=== PATIENT | female | born 2000 | race Caucasian/White ===

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

== ENCOUNTER → 2019-12-24 11:07 | Outpatient (CLI) | payer OTHER, MEDICAID, SELFPAY ==
[2019-12-24 14:24] LABS: hCG Titer Quant., Serum 23015 mIU/mL (1-3)
[2019-12-26 03:07] LABS: Chlamydia By Nucleic Acid AMP Negative (Negative)
[2019-12-26 07:49] LABS: Gonococcus By Nucleic Acid AMP Negative (Negative)
== END ==
PROVIDERS: PCP Pediatrics; Visit Provider Obstetrics & Gynecology
DX: Z34.81 Encounter for supervision of other normal pregnancy, first trimester (principal); Z11.3 Encounter for screening for infections with a predominantly sexual mode of transmission
CPT/HCPCS: 36415; 84702; 87491; 87591

== ENCOUNTER 2019-12-28 19:07 | Emergency (ER) | payer OTHER, MEDICAID, SELFPAY ==
[2019-12-28 19:08] VITALS: BP 133/84; PULSE 103; RESP 15; TEMP 37.2; O2SAT 99; BMI 41.8
--- NOTE | 2019-12-28 20:21 | US_ITS ---
STUDY: FIRST TRIMESTER OBSTETRICAL ULTRASOUND REASON FOR EXAM: Female, 19 years old VAGINAL BLEEDING WITH X 1 DAY LMP: 11/07/2019 TECHNIQUE: Transvaginal TECHNICAL QUALITY: Adequate. PRIOR ULTRASOUND: None. FINDINGS: There is visualization of a single gestational sac in a normal intrauterine position. The gestational sac shape is within normal limits. 22 x 15 x 5 mm subchorionic hemorrhage. There is a visualized yolk sac. The yolk sac measures 4.5 mm. The placenta is non-visualized. There is visualization of a live embryo. The crown-rump length (CRL) measures 1.03 cm, indicating an estimated gestational age (EGA) of 7 weeks, 1 days. There is demonstrated cardiac activity with a heart rate of 142 bpm. The estimated gestation age (EGA) by LMP is 7 weeks, 2 days. The estimated date of delivery (RICHARD) by LMP is 08/13/2020. The estimated gestation age (EGA) by US is 7 weeks, 1 days. The estimated date of delivery (RICHARD) by US is 08/14/2020. The uterus measures 9.3 x 7.1 x 4.9 cm. There is no demonstrated uterine fibroid. The cervix is closed. The right ovary measures 4.2 x 3.5 x 2.5 cm. There is no right ovarian cyst. There is no visualized right adnexal mass or complex lesion. The left ovary measures 2.9 x 2.3 x 2.2 cm. There is no left ovarian cyst. There is no visualized left adnexal mass or complex lesion. There is no fluid in the cul de sac. US/Transvaginal w/Preg US IMPRESSION: Intrauterine gestation with sonographic age of 7 weeks 1 day. Cervix is closed. Positive cardiac activity. 22 x 15 x 5 mm subchorionic hemorrhage. Electronically Signed: Bal Chacon MD at 22:45 EDT Tel , Service support ,
[2019-12-28 20:43] LABS: Bacteria 0 SEEN /hpf (None Seen); Mucous, Urine 0 SEEN /hpf (<or=2+); White Blood Cells 0 SEEN /hpf (0-5)
[2019-12-28 20:44] LABS: Color, Urine Yellow (Yellow); Glucose, Dipstick Normal (Normal); Ketone-Dipstick Negative (Negative); Leukocyte Esterase-Dipstick Negative /ul (Negative); Nitrite-Dipstick Negative (Negative); Occult Blood-Urine 10 /ul (Negative); Protein-Dipstick Negative (Negative); Specific Gravity, Urine 1.025 (1.002-1.030); Urine Bilirubin Dipstick Negative (Negative); Urine Clarity Sl. Cloudy (Clear); Urine Urobilinogen Normal (Normal)
[2019-12-28 20:46] LABS: Absolute Lymphocyte Count 2.71 X10^3/uL (0.83-4.51); Absolute Neutrophil Count 7.5 X10^3/uL (2.0-7.7); Basophil# 0.04 X10^3/uL; Basophil% 0.4 % (0-1); Eosinophil# 0.16 X10^3/uL; Eosinophils% 1.4 % (0-5); Hemoglobin 13.2 g/dL (12.0-15.0); Lymphocyte # 2.71 X10^3/ul (4.0); Lymphocyte % 24.1 % (19-41); Mean Corpuscular Hgb 28.3 pg (27.0-32.0); Mean Corpuscular Volume 85.7 fL (81-99); Mean Platelet Vol. 9.1 fl (6.2-12.0); Monocyte# 0.84 X10^3/uL; Monocyte% 7.5 % (0-10); NRBC Flagged by Analyzer 0 % (0-5); Neutrophil # 7.47 X10^3/uL (2.7-7.7); Neutrophil % 66.2 % (47-70); Platelet Count 327 K/mm3 (150-450); RBC Distribution Width CV 12.9 % (11.6-14.6); RBC Distribution Width SD 40.2 fl (35.1-43.9); Red Blood Count 4.67 M/mm3 (4.2-5.4); White Blood Count 11.3 K/mm3 (4.4-11.0)
[2019-12-28 21:08] VITALS: BP 125/85; PULSE 98; RESP 18; O2SAT 98
[2019-12-28 21:11] LABS: Red Blood Cells-Urine 0-5 SEEN /hpf (0-5); Squamous Epithelial Cells - UA 0-5 SEEN /hpf (5-10)
[2019-12-28 21:31] LABS: hCG Titer Quant., Serum 35882 mIU/mL (1-3)
--- NOTE | 2019-12-28 21:32 | ED.VIS.FEGU ---
History of Present Illness Chief Complaint: Vag Bleeding Informant: Patient Pain: Pelvic Pain Onset: Today Context: Gradual Onset Timing: Intermittent Quality: Cramping Issue: Vaginal bleeding - spotting. Negative for: Passing clots, Passing tissue Onset: Today Timing: Intermittent Current Severity: Spotting Maximum Severity: Spotting Test: Positive Sexually: Active, Single Partner P: 0 Narrative: patient is a currently 7 weeks gestation by LMP presenting from from home with pelvic cramping and spotting. Patient has not had an ultrasound yet to confirm intrauterine . She is following with Tere Garnica for her OB care. She has an appointment see her in about 10 days. She had some mild associated nausea and fatigue which she contributes to normal symptoms. She states her blood type is B+. Patient denies any abnormal vaginal discharge. Patient is concerned that could be centering the so she came to the emergency room to see why she is bleeding. She has no other complaints at this time. Past Medical History - Allergies and Home Meds Allergies/Adverse Reactions: Allergies No Known Allergies Allergy (Verified 12/28/19 19:13) Primary Care Physician: Care Physician,No Primary [Primary Care Provider] - Past Medical History: - - PCOS, depression Surgical History: noncontributory Smoking Status: Never smoker Review of Systems General: Denies: Chills, Fever, Sweats Eyes: Denies: Visual changes - bilaterally, Diplopia ENT: Denies: Rhinorrhea, Sore throat Cardiovascular: Denies: Chest pain, Palpitations Respiratory: Denies: Dyspnea, Cough, Dyspnea on exertion Gastrointestinal: Reports: Abdominal pain - Cramping, Nausea. Denies: Vomiting, Diarrhea, Melena, Hematochezia Genitourinary: Reports: - - vaginal spotting . Denies: Dysuria, Hematuria, Frequency Musculoskeletal: Denies: Back pain, Extremity Pain Skin: Denies: Rash, Wounds Neurological: Denies: Headache, Weakness, Numbness Physical Exam Vital Signs/Narrative: Vital Signs Temp Pulse Resp BP Pulse Ox 12/28/19 21:08 98 18 125/85 H 98 12/28/19 19:08 99.0 F 103 H 15 133/84 H 99 Inital Vital Signs reviewed: Yes General: Well nourished, Well developed Head: Normocephalic, Atraumatic Eyes: Perrl, EOMI ENT: Moist mucous membranes, No rhinorrhea Neck: Supple, Nontender Cardiovascular: Regular rate, Regular rhythm, No murmurs Respiratory: No distress, CTA bilaterally, Chest nontender Abdomen: Soft, Nontender, Nondistended, Normal bowel sounds. Negative for: Guarding, Rebound tenderness Back: Nontender, Normal Inspection Extremities: Nontender, No edema Skin: Normal color, No rash Neurological: Alert, Oriented x3, Cranial nerves II-XII grossly intact, Normal Strength, Normal Sensation Psychological: Normal affect Diagnostic/Tx/Re-eval - Medical Decision/Diagnostic Studies Laboratory Data 12/28/19 12/28/19 12/28/19 20:25 20:30 20:30 WBC 11.3 H RBC 4.67 Hgb 13.2 Hct 40.0 MCV 85.7 MCH 28.3 MCHC 33.0 RDW Std Deviation 40.2 RDW Coeff of Benjamin 12.9 Plt Count 327 MPV 9.1 Immature Gran % (Auto) 0.400 Neut % (Auto) 66.2 Lymph % (Auto) 24.1 Divide % (Auto) 7.5 Eos % (Auto) 1.4 Baso % (Auto) 0.4 Absolute Neuts (auto) 7.5 Absolute Lymphs (auto) 2.71 Nucleated RBC % 0 HCG, Quant 67104 H Urine Color Urine Clarity Urine pH Ur Specific Moon Urine Protein Urine Glucose (UA) Urine Ketones Urine Occult Blood Urine Nitrite Urine Bilirubin Urine Urobilinogen Ur Leukocyte Esterase Urine RBC Urine WBC Ur Squamous Epith Cells Urine Bacteria Urine Mucus Blood Type B POSITIVE 12/28/19 20:30 WBC RBC Hgb Hct MCV MCH MCHC RDW Std Deviation RDW Coeff of Benjamin Plt Count MPV Immature Gran % (Auto) Neut % (Auto) Lymph % (Auto) Divide % (Auto) Eos % (Auto) Baso % (Auto) Absolute Neuts (auto) Absolute Lymphs (auto) Nucleated RBC % HCG, Quant Urine Color Yellow Urine Clarity Sl. Cloudy Urine pH 6.0 Ur Specific Moon 1.025 Urine Protein Negative Urine Glucose (UA) Normal Urine Ketones Negative Urine Occult Blood 10 H Urine Nitrite Negative Urine Bilirubin Negative Urine Urobilinogen Normal Ur Leukocyte Esterase Negative Urine RBC 0-5 SEEN Urine WBC 0 SEEN Ur Squamous Epith Cells 0-5 SEEN Urine Bacteria 0 SEEN Urine Mucus 0 SEEN Blood Type Diagnostic Data Obstetrics Ultrasound 12/28/19 20:21 IMPRESSION: Intrauterine gestation with sonographic age of 7 weeks 1 day. Cervix is closed. Positive cardiac activity. 22 x 15 x 5 mm subchorionic hemorrhage. Electronically Signed: Bal Chacon MD at 22:45 EDT Tel , Service support , Patient is evaluated for vaginal spotting and cramping in early . She not yet had an ultrasound to confirm intrauterine gestation. She is well-appearing on exam with a benign abdominal exam. She is only having slight spotting I do not think a pelvic exam is necessary at this time. We will check blood type to confirm that patient does not require RhoGam. Patient had a quant on 12/23 that was 23,015 and it is now 35,882 today. Bedside ultrasound performed by myself showed questionable pole but was unable to get a good visualization so we will obtain a formal transvaginal ultrasound to definitively rule out ectopic . Her sound shows a subchorionic hemorrhage with a live intrauterine gestation. Patient will be discharged home with instructions to follow-up with [facility]ISTR[facility]. Patient is counseled on signs and symptoms requiring return to the emergency room. Patient verbalizes agreement and understand this plan. Patient discharged home in stable and improved condition. ED Disposition - Plan for ED Patient: Disposition: Home or Assisted Living Diagnosis: First trimester bleeding, Subchorionic hemorrhage in first trimester Instructions: Bleeding During Early Referrals: Poonam Garnica CNM [Certified Nurse Director Of Corporate Sales] - Additional Instructions: The appears healthy right now. There is normal cardiac activity. There does appear to be subchorionic bleed which is likely the cause your bleeding today. This can be monitored by her [facility] ADMINISTRATOR. This early on in there is still a risk of miscarriage.
== END 2019-12-28 23:47 | disposition home or self-care (01) ==
PROVIDERS: Emergency Provider Emergency Medicine
DX: O20.8 Other hemorrhage in early pregnancy (principal); O99.341 Other mental disorders complicating pregnancy, first trimester; F32.89 Other specified depressive episodes; Z3A.01 Less than 8 weeks gestation of pregnancy
CPT/HCPCS: 76817; 81001; 84702; 85025; 86900; 86901; 99282; 99284; A4216

== ENCOUNTER → 2020-01-09 10:03 | Outpatient (CLI) | payer OTHER, MEDICAID, SELFPAY ==
[2019-12-28 19:08] VITALS: BMI 41.8
[2020-01-09 10:46] LABS: Absolute Lymphocyte Count 1.68 X10^3/uL (0.83-4.51); Basophil# 0.02 X10^3/uL; Basophil% 0.3 % (0-1); Eosinophil# 0.13 X10^3/uL; Eosinophils% 1.8 % (0-5); Hemoglobin 12.9 g/dL (12.0-15.0); Lymphocyte # 1.68 X10^3/ul (4.0); Lymphocyte % 23.1 % (19-41); Mean Corp Hgb Conc 33.1 g/dL (32-36); Mean Corpuscular Volume 84.8 fL (81-99); Monocyte# 0.41 X10^3/uL; Monocyte% 5.6 % (0-10); NRBC Flagged by Analyzer 0 % (0-5); Neutrophil # 5.02 X10^3/uL (2.7-7.7); Neutrophil % 68.9 % (47-70); Platelet Count 303 K/mm3 (150-450); RBC Distribution Width CV 12.9 % (11.6-14.6); RBC Distribution Width SD 39.4 fl (35.1-43.9); White Blood Count 7.3 K/mm3 (4.4-11.0)
[2020-01-09 11:24] LABS: Glucose Challenge Gest 1H 50g 145 mg/dL (70-140)
[2020-01-09 12:06] LABS: HIV - WCH Non-Reactive (Nonreactive); Hepatitis B Surface Antigen Non-Reactive (Nonreactive); Hepatitis C Antibody Non-Reactive (Nonreactive); Rubella IgG Reactive (Nonreactive)
[2020-01-10 16:43] LABS: V-Zoster IgG (Immunity) 362 index (Immune >165)
[2020-01-15 02:10] LABS: Prenatal RPR NONREACTIVE (NONREACTIVE)
== END ==
PROVIDERS: Visit Provider Student in an Organized Health Care Education/Training Program
DX: Z34.81 Encounter for supervision of other normal pregnancy, first trimester (principal)
CPT/HCPCS: 36415; 82950; 85025; 86703; 86762; 86787; 86803; 87086; 87088; 87340

== ENCOUNTER → 2020-01-27 07:04 | Outpatient (CLI) | payer OTHER, MEDICAID, SELFPAY ==
[2019-12-28 19:08] VITALS: BMI 41.8
[2020-01-27 07:56] LABS: Glucose GTT-Gestation. Fasting 94 mg/dL (<105)
[2020-01-27 08:53] LABS: Glucose GTT-Gestational 1 Hr 154 mg/dL (<190)
[2020-01-27 09:54] LABS: Glucose GTT-Gestational 2 Hr 132 mg/dL (<165)
[2020-01-27 11:55] LABS: Glucose GTT-Gestational 3 Hr 61 L (<145)
== END ==
PROVIDERS: Student in an Organized Health Care Education/Training Program; Referring Provider Obstetrics & Gynecology; Visit Provider Obstetrics & Gynecology
DX: O24.912 Unspecified diabetes mellitus in pregnancy, second trimester (principal); Z3A.00 Weeks of gestation of pregnancy not specified
CPT/HCPCS: 36415; 82951; 82952

== ENCOUNTER → 2020-03-25 10:25 | Outpatient (CLI) | payer OTHER, MEDICAID, SELFPAY ==
--- NOTE | 2020-03-25 10:31 | EKG12_ITS ---
Test Reason : PALPITATIONS Blood Pressure : / mmHG Vent. Rate : 099 BPM Atrial Rate : 099 BPM P-R Int : 124 ms QRS Dur : 096 ms QT Int : 348 ms P-R-T Axes : 067 047 044 degrees QTc Int : 446 ms Normal sinus rhythm Normal ECG Confirmed by CEDRIC SOOD, JULISA ([id number]), editor continuity and script KALINA MARTINEZ ([id number]) on 03/29/2020 11:11:55 AM Referred By: Don BLOOM Confirmed By:BREANNE STEELE MD
== END ==
PROVIDERS: Visit Provider Student in an Organized Health Care Education/Training Program
DX: O99.891 Other specified diseases and conditions complicating pregnancy (principal); R00.2 Palpitations; Z3A.00 Weeks of gestation of pregnancy not specified
CPT/HCPCS: 93005

== ENCOUNTER → 2020-04-27 07:24 | Outpatient (CLI) | payer OTHER, SELFPAY ==
[2020-04-27 09:21] LABS: Glucose GTT-Gestation. Fasting 90 mg/dL (<105)
[2020-04-27 09:21] LABS: Glucose GTT-Gestational 1 Hr 152 mg/dL (<190)
[2020-04-27 10:24] LABS: Glucose GTT-Gestational 2 Hr 142 mg/dL (<165)
[2020-04-27 11:15] LABS: Glucose GTT-Gestational 3 Hr 85 L (<145)
== END ==
PROVIDERS: Referring Provider Student in an Organized Health Care Education/Training Program; Visit Provider Student in an Organized Health Care Education/Training Program
DX: O24.912 Unspecified diabetes mellitus in pregnancy, second trimester (principal); O99.212 Obesity complicating pregnancy, second trimester; E66.9 Obesity, unspecified; Z3A.00 Weeks of gestation of pregnancy not specified
CPT/HCPCS: 36415; 82951; 82952

== ENCOUNTER → 2020-05-04 11:01 | Outpatient (CLI) | payer OTHER, MEDICAID, SELFPAY ==
--- NOTE | 2020-05-04 11:05 | US_ITS ---
STUDY: ULTRASOUND BREAST - RIGHT REASON FOR EXAM: Female, 19 years old. Palpable lump in the right breast. TECHNIQUE: Axial and longitudinal images of the RIGHT breast were performed with a high resolution ultrasound transducer. # OF IMAGES: 14 COMPARISON: None. FINDINGS: RIGHT Breast: The right axillary region was examined with the ultrasound probe. There is a 6 mm x 5 mm x 3 mm benign appearing lymph node. US/Breast Limited Unilateral IMPRESSION: There is a 6 mm x 5 mm x 3 mm benign-appearing lymph node in the right axillary region. ASSESSMENT CATEGORY: BIRADS Category 2: Benign. A letter regarding these results will be sent to the patient by the facility within 30 days. Electronically Signed: Carrillo Jaramillo MD at 12:22 EST , Service support ,
== END ==
PROVIDERS: Referring Provider Student in an Organized Health Care Education/Training Program; Visit Provider Student in an Organized Health Care Education/Training Program
DX: N63.31 Unspecified lump in axillary tail of the right breast (principal)
CPT/HCPCS: 76642

== ENCOUNTER → 2020-05-25 10:56 | Outpatient (CLI) | payer OTHER, SELFPAY ==
[2020-05-25 12:49] LABS: Hematocrit 34.9 % (37-47); Hemoglobin 11.7 g/dL (12.0-15.0); Mean Corp Hgb Conc 33.5 g/dL (32-36); Mean Corpuscular Hgb 29.5 pg (27.0-32.0); Mean Corpuscular Volume 88.1 fL (81-99); Mean Platelet Vol. 9.9 fl (6.2-12.0); Platelet Count 274 K/mm3 (150-450); RBC Distribution Width SD 44.4 fl (35.1-43.9); Red Blood Count 3.96 M/mm3 (4.2-5.4); White Blood Count 10.9 K/mm3 (4.4-11.0)
[2020-05-25 13:18] LABS: ALB/GLOB Ratio 0.6 RATIO (0.9-2.4); AST(SGOT) 12 U/L (15-37); Alanine Aminotransfer ALT/SGPT 15 U/L (13-56); Albumin, Serum 2.6 g/dL (3.2-5.0); Alkaline Phosphatase 102 U/L (45-117); Anion Gap 7 (5-15); BUN 5 mg/dL (7-18); BUN/Creat Ratio 9.9 RATIO (10-20); Chloride 107 mmol/L (98-107); EST Glomerular Filtration Rate 165 mL/min (>60); Est Glom Filt Rate - Afr Amer 199 mL/min (>60); Globulin 4.3 g/dL (2.2-4.2); Glucose 88 mg/dL (74-106); LDH 186 U/L (84-246); Potassium 3.9 mmol/L (3.5-5.1); Protein, Total 6.9 g/dL (6.4-8.2); Sodium Level 137 mmol/L (136-145)
[2020-05-25 13:19] LABS: Protein, Urine (Random) 9.4 mg/dL (<11.9); Protein:Creat Ratio 138 mg/g CRE (0-200)
== END ==
PROVIDERS: Visit Provider Student in an Organized Health Care Education/Training Program
DX: O16.9 Unspecified maternal hypertension, unspecified trimester (principal); Z3A.00 Weeks of gestation of pregnancy not specified
CPT/HCPCS: 36415; 80053; 82570; 83615; 84156; 85027; 87086; 87088

== ENCOUNTER 2020-06-23 19:45 | Outpatient (CLI) | payer OTHER, MEDICAID, SELFPAY ==
[2020-06-23 19:58] VITALS: BMI 45.1
[2020-06-23 20:05] VITALS: BP 133/73; PULSE 99; O2SAT 99
[2020-06-23 20:19] VITALS: BP 144/76; PULSE 100
[2020-06-23] MEDS: Acetaminophen 500 MG Tablet 1000 MG PO (20:43)
[2020-06-23 20:45] LABS: Hematocrit 33.1 % (37-47); Hemoglobin 10.9 g/dL (12.0-15.0); Mean Corp Hgb Conc 32.9 g/dL (32-36); Mean Corpuscular Hgb 28.4 pg (27.0-32.0); Mean Corpuscular Volume 86.2 fL (81-99); Mean Platelet Vol. 9.5 fl (6.2-12.0); Platelet Count 267 K/mm3 (150-450); RBC Distribution Width CV 12.9 % (11.6-14.6); RBC Distribution Width SD 40.5 fl (35.1-43.9); Red Blood Count 3.84 M/mm3 (4.2-5.4); White Blood Count 10.9 K/mm3 (4.4-11.0)
[2020-06-23 20:54] LABS: Partial Thromboplast Time 26.7 Seconds (24.1-36.2)
[2020-06-23 20:59] LABS: AST(SGOT) 6 U/L (15-37); Alanine Aminotransfer ALT/SGPT 10 U/L (13-56); Creatinine, Serum 0.44 mg/dL (0.55-1.02); EST Glomerular Filtration Rate 195 mL/min (>60); Est Glom Filt Rate - Afr Amer 236 mL/min (>60); Estimated Creatinine Clearance 198.33 ml/min; Protein, Urine (Random) 11.4 mg/dL (<11.9); Protein:Creat Ratio 210 mg/g CRE (0-200); Uric Acid 4.4 mg/dL (2.6-6.0)
--- NOTE | 2020-06-23 21:10 | NURSING ---
Dr Galaviz notified of medical screening score of 6 due to patient having headaches and visual disturbances and that bedside provider evaluation required. Dr. Galaviz stated he is not coming in to evaluate and to discharge patient to home.
--- NOTE | 2020-06-23 21:10 | NURSING ---
RN discussed with Dr. Galaviz patient complaints of head ache and seeing spots, blood pressures, and lab results. Patient states she has notified provider of headaches in previous office visit. Provider gave order to discharge patient home and to have patient call office tomorrow to report symptoms and to keep appointment scheduled for 06/28/20.
--- NOTE | 2020-06-24 08:31 | OB.TRI.NOTE ---
History of Present Illness Date of Service: 06/23/20 Was patient seen by the physician?: No Reason For Visit: HEADCAHE Date of Service: 06/23/20 Final RICHARD: 08/13/20 Final RICHARD Source: US <20 weeks Gestational age: 32 Weeks and 5 Days History of Present Illness: Patient is 32+ weeks gestation with a mild to moderate headache for 2 to 3 days. Today had some slight visual changes. Given this presented to labor and delivery. Denies contractions, bleeding, abdominal pain or other PIH symptoms. Allergies No Known Allergies Allergy (Verified 06/23/20 19:56) Laboratory Studies: Laboratory Tests 06/23/20 06/23/20 06/23/20 Range/Units 20:35 20:35 20:35 WBC (4.4-11.0) K/mm3 RBC (4.2-5.4) M/mm3 Hgb (12.0-15.0) g/dL Hct (37-47) % MCV (81-99) fL MCH (27.0-32.0) pg MCHC (32-36) g/dL RDW Std Deviation (35.1-43.9) fl RDW Coeff of Benjamin (11.6-14.6) % Plt Count (150-450) K/mm3 MPV (6.2-12.0) fl PT 13.0 (11.7-14.9) SECONDS INR 1.0 APTT 26.7 (24.1-36.2) Seconds Creatinine 0.44 L (0.55-1.02) mg/dL Estim Creat Clear Calc 198.33 ml/min Est GFR (MDRD) Af Amer 236 (>60) mL/min Est GFR (MDRD) Non-Af 195 (>60) mL/min Uric Acid 4.4 (2.6-6.0) mg/dL AST 6 L (15-37) U/L ALT 10 L (13-56) U/L U Random Total Protein 11.4 (<11.9) mg/dL Urine Creatinine 54.40 (NO RANGE EST.) mg/dL Protein/Creatinin Ratio 210 H (0-200) mg/g CRE 06/23/20 Range/Units 20:35 WBC 10.9 (4.4-11.0) K/mm3 RBC 3.84 L (4.2-5.4) M/mm3 Hgb 10.9 L (12.0-15.0) g/dL Hct 33.1 L (37-47) % MCV 86.2 (81-99) fL MCH 28.4 (27.0-32.0) pg MCHC 32.9 (32-36) g/dL RDW Std Deviation 40.5 (35.1-43.9) fl RDW Coeff of Benjamin 12.9 (11.6-14.6) % Plt Count 267 (150-450) K/mm3 MPV 9.5 (6.2-12.0) fl PT (11.7-14.9) SECONDS INR APTT (24.1-36.2) Seconds Creatinine (0.55-1.02) mg/dL Estim Creat Clear Calc ml/min Est GFR (MDRD) Af Amer (>60) mL/min Est GFR (MDRD) Non-Af (>60) mL/min Uric Acid (2.6-6.0) mg/dL AST (15-37) U/L ALT (13-56) U/L U Random Total Protein (<11.9) mg/dL Urine Creatinine (NO RANGE EST.) mg/dL Protein/Creatinin Ratio (0-200) mg/g CRE Physical Exam Vitals: Vital Signs Pulse BP Pulse Ox 100 144/76 H 99 06/23/20 20:19 06/23/20 20:19 06/23/20 20:05 NST - FHR Rate Baby A NST Reactive:: Yes FHR Category:: Category I Impression/Plan 32+ week intrauterine with headache. Recommended hydration and Tylenol. PIH labs were normal. Reactive nonstress test. Will release to home and have patient follow-up in the office tomorrow. Possible viral etiology.
[2020-06-24 13:57] VITALS: BP 123/81; PULSE 82
[2020-06-24 14:05] VITALS: PULSE 82; TEMP 37.2; O2SAT 99
== END 2020-06-23 21:25 | disposition home or self-care (01) ==
LOC: WPOUT 19:50 → WP 19:51
PROVIDERS: Visit Provider Obstetrics & Gynecology
DX: O99.891 Other specified diseases and conditions complicating pregnancy (principal); R51.9 Headache, unspecified; Z3A.32 32 weeks gestation of pregnancy
CPT/HCPCS: 36415; 59025; 59050; 82565; 82570; 84156; 84450; 84460; 84550; 85027; 85610; 85730; 99218; G0378

== ENCOUNTER → 2020-07-19 | Outpatient (CLI) | payer OTHER, MEDICAID, SELFPAY ==
[2020-06-23 19:58] VITALS: BMI 45.1
== END | disposition home or self-care (01) ==
LOC: LABSPEC 17:01
PROVIDERS: Visit Provider Student in an Organized Health Care Education/Training Program
DX: Z36.85 Encounter for antenatal screening for Streptococcus B (principal)
CPT/HCPCS: 87081

== ENCOUNTER 2020-08-04 23:45 | Inpatient (IN) | payer OTHER, MEDICAID, SELFPAY ==
[2020-08-04 23:07] VITALS: BP 134/80; PULSE 103; PULSE 104; TEMP 36.9; O2SAT 97; O2SAT 98
[2020-08-04 23:15] VITALS: BMI 48.0
[2020-08-04 23:46] LABS: ROM Internal Control Test YES-OK TO RESULT pt. (Internal QC); ROM Patient Test POSITIVE (Negative)
[2020-08-05] VITALS (78 sets, daily range): BP systolic 113–163; BP diastolic 56–96; PULSE 77–121; RESP 16; TEMP 36.2–37.3; O2SAT 91–100
[2020-08-05] MEDS: Lactated Ringers 1,000 ML 50 ML IV
[2020-08-05 00:11] LABS: Absolute Lymphocyte Count 2.33 X10^3/uL (0.83-4.51); Absolute Neutrophil Count 6.9 X10^3/uL (2.0-7.7); Basophil# 0.02 X10^3/uL; Basophil% 0.2 % (0-1); Eosinophil# 0.13 X10^3/uL; Eosinophils% 1.3 % (0-5); Hematocrit 34.2 % (37-47); Lymphocyte # 2.33 X10^3/ul (0.83-4.51); Lymphocyte % 22.7 % (19-41); Mean Corp Hgb Conc 32.2 g/dL (32-36); Mean Corpuscular Hgb 26.7 pg (27.0-32.0); Mean Platelet Vol. 9.7 fl (6.2-12.0); Monocyte% 7.8 % (0-10); NRBC Flagged by Analyzer 0 % (0-5); Neutrophil # 6.92 X10^3/uL (2.7-7.7); Neutrophil % 67.4 % (47-70); Platelet Count 324 K/mm3 (150-450); RBC Distribution Width CV 13.4 % (11.6-14.6); RBC Distribution Width SD 40.5 fl (35.1-43.9); Red Blood Count 4.12 M/mm3 (4.2-5.4); White Blood Count 10.3 K/mm3 (4.4-11.0)
[2020-08-05] MEDS: Mag Hydrox/Al Hydrox/Simeth 30 ML UDC PO (04:53)
[2020-08-05] MEDS: Oxytocin 30 units/NS 500 ml 30 UNITS/500 ML IV.SOLN IV (06:09)
--- NOTE | 2020-08-05 09:11 | PCM.HP.BLA ---
History and Physical Date of Admission: 08/04/20 ACOG ANTEPARTUM RECORD - HISTORY AND PHYSICAL (08/05/2020) Name: RADHA BOONE History of this : This is a 19 year old [id number] presents at 38 wks + 6 days gestation with spontaneous rupture of membranes. OB Physician: Enedina Florian Endeavor's Physician: UNDECIDED ...................................................................... : [birth year] Age: 19 Address: [address] [place] [address] Phone: H) [phone] Insurance Carrier: [facility] [id number] Emergency Contact: BRIDGER JACKSON [phone] ...................................................................... Final RICHARD: 08/13/20 By Ultrasound: 9 weeks PARITY: (G-Total Pregnancies P-Fullterm,Premature,Induced AB,Spont AB, Ectopics, Multiple,Living) RICHARD CONFIRMATION: By LMP: 11/07/19 Final RICHARD: 08/13/20 OB PROBLEM LIST: At NOB visit undecided re genetic tests but leaning to declining. Please enc office Childbirth/ classes in Spring 2020. Encouraged to get flu shot. ALLERGIES: No Known Drug Allergies MEDICATIONS: Diflucan 150 mg tablet 1 PO day one, then 1 PO day 3 Multi 27-800 mg-mcg tablet 1 PO QD Unisom (doxylamine) 25 mg tablet One pill by mouth once a day Zoloft 100 mg tablet One pill by mouth once a day SOCIAL HISTORY: Smoking - Vaped from 2018 til + pg test Alcohol Use - RARELY not while Diet - balanced Diet and 6-8 bottles daily water. Lifestyle - moderate stress lifestyle Exercise - Enc to walk 20 min daily. Employer - [employer]- not working now due to nausea Job Description - [employer] Illicit Drug Use - Late 2017 to early 2018 marijuana. None since. 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 GEST LAB WT LB WT OZ TYPE ANES LABOR TX ANTEPARTUM FLOW CHART VISIT GE RTC FU F F NE U U DATE WK MD WKS HT PN HR M SS BP ED WT NE GL D EF ST __ ____ ___ __ __ ___ __ __ __ ___ __ __ __ ___ __ 02 August 38 CM 6 39 V + + 128/84 1+ 303 2 60 -3 26 July 37 JMW 1 38 V + + 118/90 1+ 301 tr - 1 50 -2 19 July 36 CM 1 36 V + + 124/78 sl 301 - - 19 Apr 33 CM 2 33 V + + 102/70 sl 295 ne ne 02 Apr 31 CM 2 31 + + 112/84 1+ 290 tr - 16 May 28 CM 2 28 + + 124/90 1+ 286 04 Jun 04 JM 2 26 - + + 120/80 276 ne ne cl 16 Apr 24 CM 4 24 + + 114/72 sl 276 tr ne 14 Mar 30 CH 4 20 + + 124/78 0 266 - - 15 Feb 15 CM 4 + ? 110/76 sl 260 tr ne 17 Jan 11 CM 4 U+ O 124/74 0 262 - - 30 Dec 9 CM 3 + US 110/72 sl 246 1+ - ANTEPARTUM NOTE(S): Aug 02 2020: Jul 26 2020: ctx's, pelvic pressure, abdominal ache, Induce per Request Jul 19 2020: Jun 28 2020: Jun 11 2020: May 25 2020: May 13 2020: Apr 27 2020: Mar 25 2020: Feb 24 2020: Jan 27 2020: Jan 09 2020: COMPREHENSIVE ANTEPARTUM NOTE(S): Aug 02 2020: Radha is still having a few ctx's per daily. No leaking fluid. No spotting. Good FM. She is pre-registered. States Dr Galaviz scheduled her for Cytotec Induction 08/05/20. Reports having COVID in Mar. Wants a cervix check and membranes stripped today. Both she and her went to urgent care last or Sun. Both Tx for a sinus infection w/Augmentin for 10 days. Aug 02 2020: 38/3w visit. Class III obesity. Change IOL date to Sunday AM 08/06. F/u 6w. CM Jul 26 2020: Radha is here for a PNV at 37 wks w/ SO. Good FM. 1+ edema present in ankles. Pt states this morning she started having strong ctx's that caused her to hunch over. Severity decreased after 2 hours. Constant abdominal ache and pelvic pressure. Cervix check today. MK Jul 22 2020: H taken to OB. tkg Jul 19 2020: Radha reporting good FM. States she is tired of being . Reporting Napanoch Zhang, no leaking fluid, no spotting. GBS today. LARC consent signed -- she declines. Would like cervix check. kbm Jul 19 2020: 36/3w visit. Class III obesity - growth today AGA. CE 1 cm. GBS done. F/u 1w. Desires 39w induction, needs scheduled. CM Jun 28 2020: Radha is here for PNV. Still continues with c/o pelvic, hip, lower back pain. Having good FM. Hands and feet slightlhy swollen today. Urine neg/neg. LSS Jun 28 2020: 33/3w. Obesity. Growth next visit. Discussed third trimester concerns: pelvic pain, SPD, LE swelling. Encouraged exercises, stretching. Belly band. If worsens - can try PT. F/u 2w. CM Jun 11 2020: Radha and karthikeyan are here for visit. Main c/o is fatigue. Baby active. Lots of rolling around movements. Also notes some rib pain akbar. Enc to register for Childbirth Class. APRIL. Jun 11 2020: 31/0w visit. Feeling well. Discussed rib pain and phsyiology. Obesity - plan for growth at 36w. F/u 2w. CM May 25 2020: Radha reporting an increase in Headaches, sometimes taking Tylenol for headaches. Increases her water intake, then will take a 2nd dose of Tylenol, then a nap to help--sometimes this helps, sometimes not. Offered try Tylenol, Benadryl and caffeine as this sometimes will help. She is already taking 500 mg Magnesium at bedtime for achy hips, legs. Reporting FM numerous x every day, but she think May 25 2020: 28/4w visit. Obesity- Growth AGA today. Reports overall decreased movement, more rolling, Does feel movemement daily. NST REACTIVE today. Discussed kick counts. SERRATO - diastolic 90 today. Otherwise asymptomatic, PE wnl. Labs drawn. F/u 2w. CM May 13 2020: Radha is here as an emergency visit. Had a 1x episode of copious amounts of creamy white vag discharge this am. Had been up for awhile. Went to the BR and when she wiped, had the discharge. Has not happened a second time. States no odor, burning or itching. Is having some lower abd cramping. No blood noticed in discharge. Urine long dipped. Ketones show tr. Everything else neg. pH 5, May 13 2020: add on visit. Yeast infection, see commercial real estate lender note. JM May 13 2020: Radha is here as an emergency visit. Had a 1x episode of copious amounts of creamy white vag discharge this am. Had been up for awhile. Went to the BR and when she wiped, had the discharge. Has not happened a second time. States no odor, burning or itching. Is having some lower abd cramping. No blood noticed in discharge. Apr 27 2020: Radha is here for PNV. Had 3hr GTT today. Down to 1 vehicle at home. SO takes it to work so she is stranded at home. Feeling great increase in her anxiety. Worried about what if. Also has a concern about a lump in her right axilla. Been there for almost 1 year. Having good FM. Slight swelling in lower legs. LSS Apr 27 2020: 24/4w visit. Anxiety/depression worsening. Pt is home all day alone without car currently. Discussed counseling, strongly encouraged. Pt declines increase in zoloft now, but will call if she changes her mind. Denies SI/HI. Right axilla nodule. likely skin issue, however will order US of axilla. Obesity. Plan growth US 28w. F/u 4w. CM Mar 25 2020: Reporting some FM. Comprehensive US this morning. Reporting palpitations mostly in the evenings for the past several weeks. EKG, per Dr. Bhavana Groves, to be done this morning @ [facility]. [facility] Mar 25 2020: 19/6w visit. Anatomy US today wnl. Pt did have COVID in February, mild symptoms. Palpitations - over the past few weeks at night when she lies down at night. Not fast, just hard heartbeat. Will get EKG today. Will notify if worsens or changes. At that time consider ECHO/BMP for electrolytes. Headaches - resolve with tylenol. More frequent. Common in second trimester . Encouraged supportiv Feb 24 2020: Radha is here for PNV. Feeling very tired but N/V has subsided. Able to eat and drink fluids much easier. Having slight edema in hands and by end of day in feet. Thinks she may have felt FM. Urinde dipped tr and neg. today. LSS Feb 24 2020: 15/4w visit. Nausea resolved. Discussed compression socks. F/u 4w with anatomy us. CM Jan 27 2020: Decliines genetics testing; consent signed as such today. She has noted some ligament stretching pain. Wt checked 2 x today. kbm Jan 27 2020: 11/4w visit. Declines genetic and carrier screening today. Feeling well. F/u 4w. CM Jan 14 2020: TELEHEALTH NOB--Radha is a 19 yo G 1 P 0 with RICHARD 08-13-20 planning a vag del w epidural at [facility], uncertain of post disch ped care. She plans to breastfeed. 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 Her , Bridger works at [employer] as an FRAMED. They are recently and the was a surprise but they are fine with i Jan 09 2020: Radha is her with SO for PNV. 9 wks + 0 days. Slight edema in fingers today. C/O constipation, mood swings and edema in feet during the day. States that her nausea has eased up. NOB pkt reviewed and PT signed concent's. Glucola given to be drawn today. Medications and allergies reviewed. No other questions or concerns expressed today. LJW Jan 09 2020: 9w visit, RICHARD conformed 08/13/20 by lmp. Discussed genetic and carrier screening today - undecided at this time. WIll discuss at next visit. PNP and early 1hr drawn today for obesity and family hx of GDMA. F/u 3w for visit. CM REVIEW OF SYSTEMS: GENERAL - Denies fever, or chills SKIN - Denies rash, new skin lesions, or change in moles EYES - Denies blurred vision, or change in visual acuity EARS - Denies ear pain, or difficulty hearing NOSE - Denies nasal congestion, discharge, or bleeding MOUTH - Denies sore throat, or difficulty swallowing NECK - Denies pain or swelling RESPIRATORY - Denies shortness of breath, cough, wheezing CARDIOVASCULAR - Denies palpitations, chest pain, orthopnea, PND, peripheral edema, syncope or claudication GASTROINTESTINAL - Denies nausea, vomiting, diarrhea, constipation, Denies abdominal pain, melena and or bright red blood GENITOURINARY - Denies dysuria, frequency of urination, urgency, or hesitancy MUSCULOSKELETAL - Denies joint or muscle pain, or back pain NEUROLOGICAL - Denies localized numbness, weakness, or tingling PSYCHIATRIC - Denies depression, anxiety, substance abuse or suicide attempts ENDOCRINE - Denies heat or cold intolerance, weight loss or gain, increasing thirst HEMATO-IMMUNOLOGIC - Denies easy bruising, bleeding, oral ulcerations or recurrent infections GENETICS SCREENING: Age 35+ years: No Thalassemia: No Neural Tube Defect: No Down Syndrome: No MATTHEW-SACHS: No Sickle Cell Disease: No Hemophilia: No Musc. Dystrophy: No Cystic Fibrosis: No-declines screening [place] Chorea: No Mental Retardation: No Fragile X: No Other genetic: No Other defects: No SABs/still births: No Drugs since LMP: Yes Comments: Her mother had stillborn w chrom problems. INFECTION HISTORY: High risk AIDS: No High risk Hepatitis: No Exposed to TB: No Exposed to Herpes: No Rash/viral illness since LMP: No History of STD: No MENSTRUAL HISTORY: *Menses Amount/Duration: 4 to 7 daysMenses Regularity: IrregularFrequency: monthly* PAST SUMMARY: PARITY: 1. Total Pregnancies............ 1 2. Full Term Pregnancies........ 0 3. Premature.................... 0 4. Abortions - Induced.......... 0 5. Abortions - Spontaneous...... 0 6. Ectopics..................... 0 7. Multiple Births.............. 0 8. Living Children.............. 0 PHYSICAL EXAMINATION General Appearence: 19 yo female in no acute distress Vital Signs: AF, VSS Heart: RRR without rubs or gallops Lungs: CTA x 2 Breasts: deferred Abdomen: gravid Pelvis: Cervix: 375 Presentation: cephalic Station: -2 Fetus: Size: AGA Movement: present Heart: present LAB TEST(S) ORDERED SINCE:11/17/19 01/27/2020 GESTATIONAL GTT 3HR 100G 01/15/2020 RPR 01/11/2020 CULTURE, URINE 01/10/2020 V-ZOSTER IGG (IMMUNITY) 01/09/2020 RUBELLA IGG 01/09/2020 T AND S-NO CHARGE W/PNP 01/09/2020 HIV - [facility] 01/09/2020 HEPATITIS C ANTIBODY 01/09/2020 HEPATITIS B SURFACE ANTIGEN 01/09/2020 GLUCOSE CHALLENGE GEST 1H 50G 01/09/2020 CBC W/DIFF, AUTOMATED 12/26/2019 CHLAMYDIA/GC NANCY APTIMA 12/24/2019 HCG TITER QUANT., SERUM 08/04/2020 TYPE AND SCREEN 08/04/2020 COVID 19 AG RAPID (RN COLLECT) 08/04/2020 CBC W/DIFF, AUTOMATED 08/04/2020 (ROM) RUPTURE OF MEMBRANES 07/22/2020 RULE OUT BETA STREP (GRP. B) 06/23/2020 URIC ACID 06/23/2020 SERUM CREATININE AND GFR 06/23/2020 PROTHROMBIN TIME W/INR 06/23/2020 PROTEIN+CREATININE RATIO,URINE 06/23/2020 PARTIAL THROMBOPLAST TIME 06/23/2020 CBC-COMPLETE BLOOD CNT NO DIFF 06/23/2020 AST(SGOT) 06/23/2020 ALANINE AMINOTRANSFERAS (SGPT) 05/27/2020 CULTURE, URINE 05/25/2020 PROTEIN+CREATININE RATIO,URINE 05/25/2020 LDH 05/25/2020 COMPREHENSIVE METABOLIC PROFIL 05/25/2020 CBC-COMPLETE BLOOD CNT NO DIFF 04/27/2020 GESTATIONAL GTT 3HR 100G == ==== Order Observation Description Value Ref_Range A* Site == ==== COVID 19 AG RAP NOTE LEI Labor [facility]~[address] [place], [address]~ TYPE AND SCRE AB SCREEN GEL NEGATIVE ML CBC W/DIFF, AUT NOTE LEI CBC W/DIFF, AUT WBC 10.3 K/mm3 4.4-11.0 ML CBC W/DIFF, AUT RBC 4.12 M/mm3 4.2-5.4 L ML CBC W/DIFF, AUT HGB 11.0 g/dL 12.0-15.0 L ML CBC W/DIFF, AUT HCT 34.2 37-47 L ML CBC W/DIFF, AUT MCV 83.0 fL 81-99 ML CBC W/DIFF, AUT MCH 26.7 pg 27.0-32.0 L ML CBC W/DIFF, AUT MCHC 32.2 g/dL 32-36 ML CBC W/DIFF, AUT RDW CV 13.4 11.6-14.6 ML CBC W/DIFF, AUT RDW SD 40.5 fl 35.1-43.9 ML CBC W/DIFF, AUT PLT 324 K/mm3 150-450 ML CBC W/DIFF, AUT MPV 9.7 fl 6.2-12.0 ML CBC W/DIFF, AUT NEUT% 67.4 47-70 ML CBC W/DIFF, AUT LY% 22.7 19-41 ML CBC W/DIFF, AUT MONO% 7.8 0-10 ML CBC W/DIFF, AUT EO% 1.3 0-5 ML CBC W/DIFF, AUT BASO% 0.2 0-1 ML CBC W/DIFF, AUT IG% 0.600 0.0-0.9 ML IG% - Immature Granulocytes (promyelocytes, myelocytes and metamyelocytes) > 1% indicates that a LEFT SHIFT is Present. CBC W/DIFF, AUT ABSOLUTE NEUT 6.9 X10 3/uL 2.0-7.7 ML CBC W/DIFF, AUT ABSOLUTE LYMPH 2.33 X10 3/uL 0.83-4.51 ML CBC W/DIFF, AUT NUCLEATED RBC 0 0-5 ML (ROM) RUPTURE O NOTE LEI (ROM) RUPTURE O ROM POSITIVE Negative A ML Amniotic fluid present indicates rupture of Membranes. RESULTS CALLED TO CHART RADHA 08/04/20 [id number] Annette Flaherty. REPORT READ BACK BY SAME. RULE OUT BETA S NOTE LEI ALANINE AMINOTR NOTE LEI ALANINE AMINOTR ALT 10 U/L 13-56 L ML AST(SGOT) NOTE LEI AST(SGOT) AST 6 U/L 15-37 L ML URIC ACID NOTE LEI URIC ACID URIC 4.4 mg/dL 2.6-6.0 ML The drugs N-Acetylcysteine and Metamizole may falsely depress this assay. SERUM CREATININ NOTE LEI SERUM CREATININ CREAT,SERUM 0.44 mg/dL 0.55-1.02 L ML The validity of the calculated GFR GFRAA in patients over 70 years has not been determined. Clinical correlation is essential. SERUM CREATININ EST GFR 195 mL/min >60 ML Non- GFR Calc SERUM CREATININ EST GFR - AA 236 mL/min >60 ML GFR Calc SERUM CREATININ ECRCL 198.33 ml/min ML PROTEIN+CREATIN NOTE LEI PROTEIN+CREATIN UR CREAT 54.40 mg/dL NO RANGE EST. ML PROTEIN+CREATIN PROTEIN,UR.RAN. 11.4 mg/dL <11.9 ML PROTEIN+CREATIN PROT:CRE RATIO 210 mg/g CRE 0-200 H ML PARTIAL THROMBO NOTE LEI PARTIAL THROMBO PTT 26.7 Seconds 24.1-36.2 ML PROTHROMBIN JOSE CARLOS NOTE LEI PROTHROMBIN JOSE CARLOS PROTIME 13.0 SECONDS 11.7-14.9 ML PROTHROMBIN JOSE CARLOS INR 1.0 ML CBC-COMPLETE BL NOTE LEI CBC-COMPLETE BL WBC 10.9 K/mm3 4.4-11.0 ML CBC-COMPLETE BL RBC 3.84 M/mm3 4.2-5.4 L ML CBC-COMPLETE BL HGB 10.9 g/dL 12.0-15.0 L ML CBC-COMPLETE BL HCT 33.1 37-47 L ML CBC-COMPLETE BL MCV 86.2 fL 81-99 ML CBC-COMPLETE BL MCH 28.4 pg 27.0-32.0 ML CBC-COMPLETE BL MCHC 32.9 g/dL 32-36 ML CBC-COMPLETE BL RDW CV 12.9 11.6-14.6 ML CBC-COMPLETE BL RDW SD 40.5 fl 35.1-43.9 ML CBC-COMPLETE BL PLT 267 K/mm3 150-450 ML CBC-COMPLETE BL MPV 9.5 fl 6.2-12.0 ML LDH NOTE LEI LDH LDH 186 U/L 84-246 ML COMPREHENSIVE M NOTE LEI COMPREHENSIVE M GLU 88 mg/dL 74-106 ML Please note revised GLUCOSE reference range effective 04/13/2017. COMPREHENSIVE M BUN 5 mg/dL 7-18 L ML COMPREHENSIVE M CREAT,SERUM 0.50 mg/dL 0.55-1.02 L ML The validity of the calculated GFR GFRAA in patients over 70 years has not been determined. Clinical correlation is essential. COMPREHENSIVE M EST GFR 165 mL/min >60 ML Non- GFR Calc COMPREHENSIVE M EST GFR - AA 199 mL/min >60 ML GFR Calc COMPREHENSIVE M BUN/CRE 9.9 RATIO 10-20 L ML COMPREHENSIVE M T PROT 6.9 g/dL 6.4-8.2 ML COMPREHENSIVE M ALB 2.6 g/dL 3.2-5.0 L ML COMPREHENSIVE M GLOB 4.3 g/dL 2.2-4.2 H ML COMPREHENSIVE M A/G 0.6 RATIO 0.9-2.4 L ML COMPREHENSIVE M CA,TOTAL 9.0 mg/dL 8.5-10.1 ML COMPREHENSIVE M AST 12 U/L 15-37 L ML COMPREHENSIVE M ALK P 102 U/L 45-117 ML COMPREHENSIVE M ALT 15 U/L 13-56 ML COMPREHENSIVE M T BILI 0.10 mg/dL 0.20-1.00 L ML For patients on eltrombopag therapy, use of Dimension [place] TBIL is not recommended. COMPREHENSIVE M NA 137 mmol/L 136-145 ML COMPREHENSIVE M POTASSIUM 3.9 mmol/L 3.5-5.1 ML COMPREHENSIVE M CL 107 mmol/L 98-107 ML COMPREHENSIVE M CO2 23.0 mmol/L 21.0-32.0 ML COMPREHENSIVE M GAP 7 5-15 ML CBC-COMPLETE BL NOTE LEI CBC-COMPLETE BL WBC 10.9 K/mm3 4.4-11.0 ML CBC-COMPLETE BL RBC 3.96 M/mm3 4.2-5.4 L ML CBC-COMPLETE BL HGB 11.7 g/dL 12.0-15.0 L ML CBC-COMPLETE BL HCT 34.9 37-47 L ML CBC-COMPLETE BL MCV 88.1 fL 81-99 ML CBC-COMPLETE BL MCH 29.5 pg 27.0-32.0 ML CBC-COMPLETE BL MCHC 33.5 g/dL 32-36 ML CBC-COMPLETE BL RDW CV 14.0 11.6-14.6 ML CBC-COMPLETE BL RDW SD 44.4 fl 35.1-43.9 H ML CBC-COMPLETE BL PLT 274 K/mm3 150-450 ML CBC-COMPLETE BL MPV 9.9 fl 6.2-12.0 ML CULTURE, URINE NOTE LEI PROTEIN+CREATIN NOTE LEI PROTEIN+CREATIN UR CREAT 68.30 mg/dL NO RANGE EST. ML PROTEIN+CREATIN PROTEIN,UR.RAN. 9.4 mg/dL <11.9 ML PROTEIN+CREATIN PROT:CRE RATIO 138 mg/g CRE 0-200 ML GESTATIONAL GTT NOTE LEI GESTATIONAL GTT 3HR GTT- GEST. MG/DL ML FASTING 90 Col: 04/27/20 0728 GLUCOSE TOLERANCE TEST FOR Reference Interval GESTATIONAL DIABETES Fasting <105 mg/dL 1 hour <190 mg/dl 2 hour <165 mg/dl 3 hour <145 mg/dl 1 HR GLU 152 Col: 04/27/20 0833 2 HR GLU 142 Col: 04/27/20 0933 3 HR GLU 85 Col: 04/27/20 1035 GESTATIONAL GTT NOTE LEI GESTATIONAL GTT GLU GTT-FASTING 94 mg/dL <105 ML GLUCOSE TOLERANCE TEST FOR Reference Interval GESTATIONAL DIABETES Fasting <105 mg/dL 1 hour <190 mg/dl 2 hour <165 mg/dl 3 hour <145 mg/dl GESTATIONAL GTT GLU GTT- 1HR 154 mg/dL <190 ML GESTATIONAL GTT GLU GTT- 2HR 132 mg/dL <165 ML GESTATIONAL GTT GLU GTT- 3HR 61 L <145 ML RPR NOTE LEI RPR RPR NONREACTIVE NONREACTIVE ML CULTURE, URINE NOTE LEI V-ZOSTER IGG (I NOTE LEI V-ZOSTER IGG (I VZOST IGG [id number] index Immune >165 LC Negative <135 Equivocal 135 - 165 Positive >165 A positive result generally indicates exposure to the pathogen or administration of specific immunoglobulins, but it is not indication of active infection or stage of disease. Performed at: - [facility] [address] [place] [id number] Tilt Tray Driver: Linus Melo PhD, Phone: [phone] Reason for Type AND Screen/Red Cells: Surgery? N [facility]~[address] [place], [address]~ T AND BLOOD TYPE GEL B POSITIVE N ML T AND AB SCREEN GEL NEGATIVE N ML HEPATITIS C ANT NOTE LEI HEPATITIS C ANT HEPATITIS C AB Non-Reactive Nonreactive ML Non Reactive: < 0.8 Equivocal: >/= 0.8 to < 1.0 Reactive: >/= 1.0 The CDC recommends that a reactive/equivocal HCV antibody result be followed up by the HCV Nucleic Acid Amplification test (646487) HEPATITIS B YESSI NOTE LEI HEPATITIS B YESSI HEPB SURFACE AG Non-Reactive Nonreactive ML RUBELLA IGG NOTE LEI RUBELLA IGG RUBELLA IGG Reactive Nonreactive ML Antibody Results Interpretation of Immune Status Non Reactive Presumed Non-Immune Equivocal Equivocal Reactive Presumed Immune HIV - [facility] NOTE LEI HIV - [facility] HIV - [facility] Non-Reactive Nonreactive ML GLUCOSE CHALLEN NOTE LEI GLUCOSE CHALLEN GLU GEST 50G 1H 145 mg/dL 70-140 H ML CBC W/DIFF, AUT NOTE LEI CBC W/DIFF, AUT WBC 7.3 K/mm3 4.4-11.0 ML CBC W/DIFF, AUT RBC 4.60 M/mm3 4.2-5.4 ML CBC W/DIFF, AUT HGB 12.9 g/dL 12.0-15.0 ML CBC W/DIFF, AUT HCT 39.0 % 37-47 ML CBC W/DIFF, AUT MCV 84.8 fL 81-99 ML CBC W/DIFF, AUT MCH 28.0 pg 27.0-32.0 ML CBC W/DIFF, AUT MCHC 33.1 g/dL 32-36 ML CBC W/DIFF, AUT RDW CV 12.9 % 11.6-14.6 ML CBC W/DIFF, AUT RDW SD 39.4 fl 35.1-43.9 ML CBC W/DIFF, AUT PLT 303 K/mm3 150-450 ML CBC W/DIFF, AUT MPV 9.0 fl 6.2-12.0 ML CBC W/DIFF, AUT NEUT% 68.9 % 47-70 ML CBC W/DIFF, AUT LY% 23.1 % 19-41 ML CBC W/DIFF, AUT MONO% 5.6 % 0-10 ML CBC W/DIFF, AUT EO% 1.8 % 0-5 ML CBC W/DIFF, AUT BASO% 0.3 % 0-1 ML CBC W/DIFF, AUT IM GRAN % 0.300 % 0.0-0.9 ML IG% - Immature Granulocytes (promyelocytes, myelocytes and metamyelocytes) > 1% indicates that a LEFT SHIFT is Present. CBC W/DIFF, AUT ABSOLUTE NEUT 5.0 X10 3/uL 2.0-7.7 ML CBC W/DIFF, AUT ABSOLUTE LYMPH 1.68 X10 3/uL 0.83-4.51 ML CBC W/DIFF, AUT NRBC, FLAGGED 0 % 0-5 ML HCG TITER QUANT NOTE LEI CHLAMYDIA/GC NA NOTE LEI CHLAMYDIA/GC NA CHLAMY,NUC ACID Negative Negative LC CHLAMYDIA/GC NA GC BY NUC ACID Negative Negative LC Performed at: =[facility] carlisleton[address] [id number] Tilt Tray Driver: Alpa Pollock MD, Phone: [phone] *Negative results from patients with symptom onset beyond five days should be treated as presumptive and confirmed by a molecular assay if clinically necessary. Negative results should not be used as the sole basis for treatment or for patient management. COVID 19 AG RAPID (RN COLLECT) *Positive results do not differentiate between SARS-CoV and SARS-CoV-2. If differentation of the specific SARS virus is desired an additional sample and an additional order is required. COVID 19 AG RAPID (RN COLLECT) * This test has not been FDA cleared or approved; the test has been authorized by FDA under an Emergency Use Authorization (EAU) for use by laboratories certified under CLIA that meet the requirements to perform moderate, high, or waived complexity tests. COVID 19 AG RAPID (RN COLLECT) Normal Reference Range: Negative Testing performed on [employer]ia analyzer ROVERTO (lateral flow immunofluorescent assay) SARS-CoV-2 (COVID 19) Negative B POSITIVE Group B Beta Streptococcus is not isolated. == ==== Impression /Plan: 38 wks + 6 days intrauterine with SROM. To start pitocin if contractions do not commence on own. Preparations in progress for delivery.
[2020-08-05] MEDS: Lactated Ringers 500 ML 999 ML IV (12:26)
[2020-08-05] MEDS: Lactated Ringers 1,000 ML 200 ML IV ×2 (14:50→19:51)
[2020-08-05] MEDS: fentaNYL-bupivacaine (epidural) 100 ML BAG EPIDURAL ×2 (15:13→18:59)
[2020-08-05] MEDS: Ondansetron 4 MG/2 ML Vial IV (18:59)
[2020-08-06] VITALS (25 sets, daily range): BP systolic 96–135; BP diastolic 43–80; PULSE 87–108; RESP 15–19; TEMP 36.4–37.6; O2SAT 95–100
[2020-08-06] MEDS: fentaNYL-bupivacaine (epidural) 100 ML BAG EPIDURAL (00:08)
[2020-08-06] MEDS: Acetaminophen 325 MG Tablet PO (01:08)
[2020-08-06] MEDS: Lactated Ringers 1,000 ML 200 ML IV (01:09)
--- NOTE | 2020-08-06 01:31 | PCM.PN.BLA ---
Progress Note Patient seen and examined. Very nervous and tearful at bedside. Patient is exhausted. She has been ruptured for approximately 24 hours. Pitocin since early this morning. She has been maxed out on Pitocin twice. Minimal cervical change from 3 cm to 4 cm. Desires primary section. Discussed options of continued induction of labor versus elective section. All risks, benefits, alternatives were discussed with the patient. Risks include but are not limited to: Risk of bleeding to the point of transfusion, infection, injury to surrounding tissue including bowel or bladder, VTE, ICU admission. Patient desires elective section. Plan to proceed in urgent, but not emergent manner. status reassuring, category I tracing. We will give 3 g Ancef and 500 mg azithromycin preoperatively. All questions answered with and mother at bedside. We will plan to increase Zoloft to 150 mg postop, encourage counseling on discharge for history of depression and anxiety.
[2020-08-06] MEDS: Sodium Citrate/Citric Acid 30 ML UDC PO (01:34)
--- NOTE | 2020-08-06 02:34 | OP.PCM_ITS ---
Report of Operation Date of Procedure: 08/06/20 Pre-Operative Diagnosis: Elective term section, prelabor rupture of me mbranes Post-Operative Diagnosis: Elective term section, prelabor rupture of membranes Surgery/Procedure Performed:: Primary low transverse section Description of Surgical Findings:: Normal appearing uterus, tubes, ovaries. Fetus in cephalic position. APGARS 8/9 Surgeon: Enedina Groves Type of Anesthesia: Epidural Estimated Blood Loss (mL): 700cc Fluids Replaced: 1000cc Description of Procedure: Indications, risks and benefits: 19-year-old at 39/0 weeks admitted for prelabor rupture membranes. Patient was augmented with Pitocin for over 12 hours, with minimal cervical change. At that time patient desires section. All risks, benefits, alternatives were discussed with the patient. Risks include but are not limited to: Risk of bleeding to the point of transfusion, infection, injury to surrounding tissue including bowel or bladder requiring prolonged Rhodes catheter use, ICU admission, VTE. Patient were consented. Procedure: Patient was taken to the operating room, epidural was dosed. Patient placed in the supine position with a left lateral tilt. Prepped and draped in the usual sterile fashion. Pfannenstiel skin incision made with scalpel and carried down through subcutaneous tissue. Fascia nicked on either side of the midline and extended with Shipley scissors. Luis A clamps grasped superior fascial edge which was tented up and underlying rectus muscles were dissected off bluntly and sharply with Shipley scissors at midline. Luis A clamps moved to inferior fascial edge which was tented up and underlying rectus muscles were dissected off in a similar fashion. Hemostats utilized to separate rectus muscle superiorly, peritoneum grasped and incised medially with Metzenbaum scissors. Peritoneal window extended bluntly. Bladder blade placed. Vesicouterine peritoneum identified and bladder flap created with Metzenbaum scissors. Low transverse uterine incision made with scalpel and extended bluntly. Hand placed into the uterus and had elevated to the level of the hysterotomy. With the assistance of gentle fundal pressure head delivered followed by body. No nuchal cord. Cord clamped and cut. Baby handed to nursing. Spontaneous delivery of placenta. Uterus exteriorized and cleared of clots with lap. Hysterotomy closed with running locking stitch followed by a second horizontal imbricating stitch. Hemostatic. Uterus replaced into the abdomen, and hysterotomy closure continue to be hemostatic. Peritoneum closed with running stitch. Fascia closed with a running stitch. Subcutaneous tissue closed with a running stitch. Skin closed with running subcuticular stitch. At the end of the procedure all needle, lap, sponge counts were correct x3. Urine output: 100 cc Complications None
--- NOTE | 2020-08-06 02:41 | PCM.DC ---
Discharge Instructions Diet Discharge Diet: No restrictions Activity Discharge Activity: Return to Normal Activity, May not drive while taking narcotic pain medications. and May Shower May resume sexual activity in: 6 weeks Weight Bearing Status: Weight bearing as tolerated Lifting Restrictions: Nothing over 20-25 pounds Dressing / Incision Call your doctor if your incision/area has: Continuous Slow Oozing, Sudden Increased Bleeding, Increased Redness and Foul Smelling Discharge Call your doctor if you observe: Fever of 101 or Higher, Inability to urinate, Shortness of breath, Dizziness, Chest pain and Calf discomfort Remove Dressing in: 1 week Cleanse incision/area with: Soap & Water Follow Up Care Please Follow Up With: Enedina Groves When: 2 week post operative visit, 6 week Test Results: Test results from this visit will be discussed in further detail at your follow-up appointment, if applicable. Discharge Plan Admission Admit Date/Time: 08/04/20 23:45 Attending Provider: Tarun Galaviz Primary Care Provider: Care Physician,No Primary Discharge Orders/Prescriptions Prescriptions: No Action sertraline 25 MG tablet 100 mg PO DAILY RF: 0 [id number] ac-dha 1 EACH combo pack 1 ea PO DAILY RF: 0 magnesium 500 mg Tablet PO RF: 0
[2020-08-06] MEDS: Oxytocin 30 units/NS 500 ml 30 UNITS/500 ML IV.SOLN 167 UNITS IV (02:50)
[2020-08-06] MEDS: Ketorolac 30 MG/ML Syringe IV ×4 (03:13→21:37)
--- NOTE | 2020-08-06 05:28 | NURSING ---
called doctor Cathy Groves to update on patient having PVC's Q 2-10 beats. States that she had palpatations and an EKG when she had COVID in 03/2020. Pt asymptomatic and does not feel any palpitations. Dr. Groves ordered and EKG and states that he will look at it when he comes in soon for his AM .
--- NOTE | 2020-08-06 05:31 | EKG12_ITS ---
Test Reason : RHYTHM CHANGE Blood Pressure : / mmHG Vent. Rate : 105 BPM Atrial Rate : 105 BPM P-R Int : 112 ms QRS Dur : 084 ms QT Int : 328 ms P-R-T Axes : 049 018 023 degrees QTc Int : 433 ms Sinus tachycardia with occasional Premature ventricular complexes Nonspecific ST and T wave abnormality Abnormal ECG When compared with ECG of 25-MAR-2020 10:45, Premature ventricular complexes are now Present Confirmed by PAVAN SOOD, KATIE ([id number]), editor sound ALEKSANDAR BOONE ([id number]) on 08/10/2020 2:06:43 PM Referred By: NISSA Confirmed By:KATIE BROWNE MD
[2020-08-06] MEDS: Acetaminophen 500 MG Tablet 1000 MG PO ×3 (06:42→19:17)
[2020-08-06] MEDS: 0.9% Saline Lock 10 ML Syringe IV ×4 (06:42→21:37)
[2020-08-06] MEDS: Sertraline 50 MG Tablet 150 MG PO (10:48)
[2020-08-06] MEDS: Senna/Docusate Sodium 1 Tablet PO (10:48)
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
[2020-08-06] MEDS: Enoxaparin 40 MG/0.4 ML Syringe SC (15:16)
[2020-08-07] MEDS: Acetaminophen 500 MG Tablet 1000 MG PO ×4 (01:21→20:58)
--- NOTE | 2020-08-07 01:47 | NURSING ---
pt up to shower prior to assessment, mepilex dressing saturated and spongy on left side; dressing changed
[2020-08-07 02:35] VITALS: RESP 18; O2SAT 97
[2020-08-07 04:20] VITALS: BP 126/79; PULSE 89; RESP 17; TEMP 36.6; O2SAT 98
[2020-08-07] MEDS: Ibuprofen 600 MG Tablet PO ×4 (04:28→22:09)
[2020-08-07 06:55] LABS: Hematocrit 29.7 % (37-47); Hemoglobin 9.4 g/dL (12.0-15.0); Mean Corp Hgb Conc 31.6 g/dL (32-36); Mean Corpuscular Hgb 26.9 pg (27.0-32.0); Mean Corpuscular Volume 84.9 fL (81-99); Mean Platelet Vol. 9.3 fl (6.2-12.0); Platelet Count 239 K/mm3 (150-450); RBC Distribution Width CV 13.7 % (11.6-14.6); RBC Distribution Width SD 41.9 fl (35.1-43.9); White Blood Count 11.7 K/mm3 (4.4-11.0)
[2020-08-07] MEDS: oxyCODONE 5 MG Tablet PO ×2 (07:10→20:58)
[2020-08-07 08:15] VITALS: BP 123/77; PULSE 92; RESP 18; TEMP 37.1; O2SAT 96
--- NOTE | 2020-08-07 10:33 | PCM.PN.OB ---
Subjective Subjective No overnight complaints. Objective Data Objective Data Vital Signs: Vital Signs Temp Pulse Resp BP Pulse Ox 98.7 F 92 18 123/77 H 96 08/07/20 08:15 08/07/20 08:15 08/07/20 08:15 08/07/20 08:15 08/07/20 08:15 Oxygen Delivery Method Room Air Weight: 307 lb Body Mass Index (BMI) 48.0 Intake & Output: Intake and Output for Last 24 Hours 08/05/20 08/06/20 08/07/20 23:59 23:59 23:59 Intake Total 3994.34 / 3994.34 3969.17 / 3969.17 Output Total 2500 / 2500 2300 / 2300 500 / 500 Balance 1494.34 / 1494.34 1669.17 / 1669.17 -500 / -500 Lab / Micro Data Result Diagrams: 08/07/20 06:50 Labs: Laboratory Results - last 24 hr 08/07/20 06:50 WBC 11.7 H RBC 3.50 L Hgb 9.4 L Hct 29.7 L MCV 84.9 MCH 26.9 L MCHC 31.6 L RDW Std Deviation 41.9 RDW Coeff of Benjamin 13.7 Plt Count 239 MPV 9.3 Micro: Microbiology 08/05/20 00:40 Interface Orders SARS-CoV-2 Antigen (Rapid) - Final Physical Exam Const alert, oriented x3, no apparent distress and average body habitus HEENT normocephalic and moist oral mucous membranes Head and Scalp: atraumatic Face and Sinus: normal facial exam Eyes PERRL Neck full ROM and no lymphadenopathy Resp normal respiratory effort, no retractions and no use of accessory muscles GI normal to inspection, nondistended, normoactive bowel sounds GI Narrative: Bandage clean dry and intact. Extremity normal to inspection, full ROM and no clubbing, cyanosis or edema Psych mental status grossly normal, affect normal, speech normal and activity/motor behavior normal Assessment & Plan (1) : PLAN: Postoperative day 1 status post primary section at term. Breast-feeding supplementing bottle. Will likely discharge home tomorrow
[2020-08-07] MEDS: Sertraline 50 MG Tablet 150 MG PO (10:54)
[2020-08-07] MEDS: Enoxaparin 40 MG/0.4 ML Syringe SC (11:05)
[2020-08-07] MEDS: Senna/Docusate Sodium 1 Tablet PO (12:58)
[2020-08-07 15:10] VITALS: BP 119/80; PULSE 99; RESP 20; TEMP 36.6; O2SAT 98
[2020-08-07 19:39] VITALS: BP 147/81; PULSE 90; RESP 16; TEMP 36.8
[2020-08-07 21:44] VITALS: BP 140/84; PULSE 82; RESP 16; O2SAT 98
--- NOTE | 2020-08-07 21:44 | NURSING ---
pt had called out c/o feeling dizzy no change from previous physical assessment. vss. pt reports not feeling like she is going to pass out but as if the room is spinning. oxycodone 10 mg given at 2057. this RN and storage battery charger ramin giraldo assisted pt to brp and back to bed. pt feeling better after ambulating.
[2020-08-08 02:59] VITALS: BP 125/74; PULSE 91; RESP 16; TEMP 36.8
[2020-08-08] MEDS: Acetaminophen 500 MG Tablet 1000 MG PO ×2 (03:06→08:37)
[2020-08-08] MEDS: Ibuprofen 600 MG Tablet PO ×2 (03:07→08:37)
[2020-08-08 07:17] VITALS: BP 130/82; PULSE 98; RESP 18; TEMP 36.3; O2SAT 97
--- NOTE | 2020-08-08 10:35 | NURSING ---
Patient resting with eyes closed. Will hold 1000 meds until patient is awake.
[2020-08-08] MEDS: Senna/Docusate Sodium 1 Tablet PO (11:26)
[2020-08-08] MEDS: Enoxaparin 40 MG/0.4 ML Syringe SC (11:26)
[2020-08-08] MEDS: Sertraline 50 MG Tablet 150 MG PO (11:26)
[2020-08-08 11:31] VITALS: BP 130/70; PULSE 87; RESP 18; TEMP 36.3; O2SAT 99
--- NOTE | 2020-08-08 11:39 | PCM.DC.BLA ---
Discharge Summary Date of Admission: 08/05/20 Date of Discharge: 08/08/20 Summary: Patient arrived on [birth year]/05/2000 with spontaneous rupture of membranes. Labor augmented with Pitocin. Overall cervical dilation slowed and patient elected for primary section. Primary section was performed on 08/06/2020. Patient's postop recovery was uneventful. And patient was discharged home on 08/08/2020 Physical Exam Const alert, oriented x3 and no apparent distress General Appearance: cooperative HEENT normocephalic and head/scalp atraumatic Neck full ROM and no lymphadenopathy Lymph Lymphatic: no lymphadenopathy noted Resp normal respiratory effort, normal air movement, no retractions and no use of accessory muscles GI normal to inspection, nondistended, normoactive bowel sounds GI Narrative: Bandage clean dry and intact Extremity normal to inspection and full ROM Skin no rashes or lesions noted Psych mental status grossly normal, thought process normal, cooperative, affect normal and speech normal Meaningful Use Info Meaningful Use Diagnoses (Choose all that apply): None applicable Discharge Plan Admission Admit Date/Time: 08/04/20 23:45 Attending Provider: Tarun Galaviz Primary Care Provider: Amanda Rico Primary Instructions Forms: Information Additional Instructions / Restrictions: For regular diet. Return to normal activities, may shower. No tub baths for 2 weeks. No lifting over 25 pounds for 2 to 3 weeks. No intercourse for 4 to 6 weeks. Call if fever greater than 101, chest pain, shortness of breath, increased bleeding. Discharge Orders/Prescriptions Prescriptions: New oxycodone 5 mg Tablet 5 mg PO Q6H 5 Days Qty: 20 RF: 0 sertraline [Zoloft] 100 mg tablet 150 mg PO DAILY 30 Days Qty: 45 RF: 6 Continued [id number] ac-dha 1 EACH combo pack 1 ea PO DAILY RF: 0 magnesium 500 mg Tablet PO RF: 0 Discontinued sertraline 25 MG tablet 100 mg PO DAILY RF: 0 Referrals / Follow Up: Care Physician,No Primary [Primary Care Provider] - Sherif Groves MD [STAFF PHYSICIAN] - (Follow-up 2 weeks for postoperative visit, follow-up 4 to 6 weeks for visit) Disposition Disposition (needs filled in before D/C Order can be placed): Home, self care
[2020-08-08] MEDS: oxyCODONE 5 MG Tablet PO (11:42)
--- NOTE | 2020-08-08 11:44 | PCM.PN.OB ---
Subjective Subjective No overnight complaints. Pain well controlled. Objective Data Objective Data Vital Signs: Vital Signs Temp Pulse Resp BP Pulse Ox 97.4 F L 87 18 130/70 H 99 08/08/20 11:31 08/08/20 11:31 08/08/20 11:31 08/08/20 11:31 08/08/20 11:31 Oxygen Delivery Method Room Air Weight: 307 lb Body Mass Index (BMI) 48.0 Intake & Output: Intake and Output for Last 24 Hours 08/06/20 08/07/20 08/08/20 23:59 23:59 23:59 Intake Total 3969.17 / 3969.17 Output Total 2300 / 2300 500 / 500 Balance 1669.17 / 1669.17 -500 / -500 Lab / Micro Data Result Diagrams: 08/07/20 06:50 Micro: Microbiology 08/05/20 00:40 Interface Orders SARS-CoV-2 Antigen (Rapid) - Final Physical Exam Const alert, oriented x3, no apparent distress and average body habitus HEENT normocephalic Head and Scalp: atraumatic Lymph Lymphatic: no lymphadenopathy noted Resp normal respiratory effort, no retractions and no use of accessory muscles GI normal to inspection, nondistended, normoactive bowel sounds GI Narrative: Bandage clean dry and intact Extremity normal to inspection, full ROM and no clubbing, cyanosis or edema Skin no rashes or lesions noted Psych mental status grossly normal, affect normal, speech normal and activity/motor behavior normal Assessment & Plan (1) : PLAN: Postoperative day 2 status post elective primary section at term. Breast supplementing with bottle. Pain well controlled. Okay to discharge home today. Follow-up 2-week postoperative visit, 4 to 6-week visit.
--- NOTE | 2020-08-10 12:58 | CASEMGMT ---
Social Work Labor and Delivery [facility] referral submitted via the [facility]'s secure web based referral system. No other services requested or indicated. -THOMAS Guerrero, POULTRY INSPECTOR
== END 2020-08-08 14:23 | disposition home or self-care (01) | DRG 788 ==
LOC: WPOUT 23:45 → WP 23:45
PROVIDERS: Student in an Organized Health Care Education/Training Program; Admitting Provider Obstetrics & Gynecology; Visit Provider Obstetrics & Gynecology
DX: O42.92 Full-term premature rupture of membranes, unspecified as to length of time between rupture and onset of labor (principal); O99.344 Other mental disorders complicating childbirth; F32.9 Major depressive disorder, single episode, unspecified; F41.9 Anxiety disorder, unspecified; O99.214 Obesity complicating childbirth; E66.01 Morbid (severe) obesity due to excess calories; Z3A.38 38 weeks gestation of pregnancy; Z37.0 Single live birth; Z86.16 Personal history of COVID-19
CPT/HCPCS: 59025; 59050; 84112; 85025; 85027; 86850; 86900; 86901; 87426; 93005; 99218; J7120; A4216; G0378; J2405

== ENCOUNTER → 2022-09-28 | Outpatient (CLI) | payer OTHER, MEDICAID, SELFPAY ==
[2022-10-03 17:18] LABS: HPV APTIMA, High Risk Negative (Negative)
== END | disposition home or self-care (01) ==
PROVIDERS: Visit Provider Nurse Practitioner Women's Health
DX: Z01.419 Encounter for gynecological examination (general) (routine) without abnormal findings (principal)
CPT/HCPCS: 87624; 88175; G0145

== ENCOUNTER 2024-05-20 11:09 | Emergency (ER) | payer BC, SELFPAY ==
[2024-05-20 11:10] VITALS: BP 122/89; PULSE 101; RESP 20; TEMP 36.2; O2SAT 98; BMI 39.4
[2024-05-20 12:12] LABS: Bacteria 0 SEEN /hpf (None Seen); Mucous, Urine 0 SEEN /hpf (<or=2+)
[2024-05-20 12:31] LABS: Color, Urine Straw (Yellow); Glucose, Dipstick Normal (Normal); Ketone-Dipstick Negative (Negative); Leukocyte Esterase-Dipstick 25 /ul (Negative); Nitrite-Dipstick Negative (Negative); Occult Blood-Urine 10 /ul (Negative); Protein-Dipstick Negative (Negative); Specific Gravity, Urine 1.005 (1.002-1.030); Urine Bilirubin Dipstick Negative (Negative); Urine Clarity Clear (Clear); Urine Urobilinogen Normal (Normal)
--- NOTE | 2024-05-20 12:52 | US_ITS ---
PROCEDURE: TRANSVAGINAL W/PREG US (USTVAGP), 05/20/2024 REASON FOR EXAM: BLEEDING 8 WEEKS PREG history of . Reportedly at 7 weeks 6 days by LMP, with RICHARD 12/31/2024. TECHNIQUE: Grayscale and color/spectral doppler transvaginal pelvic ultrasound was performed with attention to the uterus and associated early gestation. M-mode imaging was utilized for documentation of cardiac activity. COMPARISON: 12/28/2019. Note only the images are available for comparison; the report is not available for review at the time of dictation. FINDINGS: A single intrauterine gestational sac is identified. Gestational sac: Mean sac diameter 2.7 cm corresponding to 7 weeks 5 days. There is a small cystic area adjacent to the gestational sac measuring 1.1 x 0.7 x 0.7 cm likely reflecting a tiny perigestational hemorrhage. This involves less than 25% of the gestational sac surface area. Lucama-rump length: 17 mm, corresponding to 8 weeks and 0 days. Yolk sac: Present Cardiac activity: Present, 157 bpm, regular. Estimated delivery date (RICHARD): 12/30/2024 by [facility]. Cervix: Unremarkable. Uterus: 10.4 x 7.1 x 5.5 cm. scar noted along the anterior lower uterine segment. Right ovary: 2.7 x 2.0 x 1.7 cm (estimated volume 4.9 mL). A simple appearing cyst adjacent to but not clearly located within the right ovary medially measures 1.1 x 1.0 x 0.9 cm. Normal low resistance arterial waveforms. Left ovary: 3.4 x 2.6 x 2.1 cm (estimated volume 9.7 mL). Peripherally vascular likely corpus luteum measures 1.5 x 1.7 x 1.9 cm. Normal low resistance arterial and venous waveforms. Other: No visualized pelvic free fluid. US/Transvaginal w/Preg US IMPRESSION: 1. Single living intrauterine gestational sac with including 17 mm pole c orresponding to a gestational age of 8 weeks 0 days corresponding to RICHARD 12/30/2024. This is compatible with reported previou sly established dates. 2. Small 1.1 cm suspected perigestational hemorrhage may account for patient pr esentation. Recommend clinical follow-up. 3. Simple appearing 1.1 cm right adnexal cyst, not clearly located within the o vary. This may reflect a physiologic cysts or perhaps a paraovarian cyst. 4. Recommend routine complete anatomic survey at 20 weeks. 5. Additional description as above. Reading Location: [id number]
[2024-05-20 13:09] VITALS: BP 112/89; PULSE 78; RESP 16; O2SAT 98
[2024-05-20 13:17] LABS: Absolute Lymphocyte Count 2.18 X10^3/uL (0.83-4.51); Absolute Neutrophil Count 4.2 X10^3/uL (2.0-7.7); Basophil# 0.03 X10^3/uL; Basophil% 0.4 % (0-1); Eosinophil# 0.13 X10^3/uL; Eosinophils% 1.8 % (0-5); Hematocrit 39.8 % (37-47); Hemoglobin 13.6 g/dL (12.0-15.0); Lymphocyte # 2.18 X10^3/ul (0.83-4.51); Lymphocyte % 30.2 % (19-41); Mean Corp Hgb Conc 34.2 g/dL (32-36); Mean Corpuscular Hgb 28.9 pg (27.0-32.0); Mean Corpuscular Volume 84.7 fL (81-99); Mean Platelet Vol. 9.2 fl (6.2-12.0); Monocyte# 0.68 X10^3/uL; Monocyte% 9.4 % (0-10); NRBC Flagged by Analyzer 0 % (0-5); Neutrophil # 4.18 X10^3/uL (2.7-7.7); Neutrophil % 57.9 % (47-70); Platelet Count 250 K/mm3 (150-450); RBC Distribution Width CV 12.6 % (11.6-14.6); RBC Distribution Width SD 38.5 fl (35.1-43.9); White Blood Count 7.2 K/mm3 (4.4-11.0)
[2024-05-20 13:21] LABS: Red Blood Cells-Urine 0-5 SEEN /hpf (0-5); Squamous Epithelial Cells - UA 0-5 SEEN /hpf (5-10); White Blood Cells 0-5 SEEN /hpf (0-5)
--- NOTE | 2024-05-20 13:28 | EDS_ITS ---
HPI HPI - Female History of Present Illness Chief Complaint: Vag Bld, Preg Narrative Narrative: Patient is a 23-year-old female who presents to the emergency department with a chief complaint of vaginal bleeding. Patient states that she currently is 8 weeks and 2 days ago she noted that she had some vaginal spotting. She states that today when she woke up and went to the bathroom noted that this was slightly heavier and more dark in nature. She states that she does have appointment on Sunday with [place] [facility] however states that she feels extremely anxious and wanted to know if the baby is okay prompting her to come here for further evaluation management. Patient states that she did have subchorionic hemorrhage with her first child however this resolved on its own and she had no other complications during her . Patient did note that approximately 2 days prior to this starting she did have intercourse. Patient denies any abdominal pain or cramping. PFSH [facility] Medical History Seasonal allergies Depression Anxiety Home Medications ?Medication ?Instructions ?Recorded ?Last Taken ?Type vit no.105-iron 30 1 ea PO DAILY 12/28/19 History mg-folic acid 1.4 mg-dha 300 mg oral pack cholecalciferol (vitamin D3) 50 50 mcg PO QDAY 5 Unknown History mcg (2,000 unit) capsule escitalopram oxalate 20 mg tablet 20 mg PO QDAY Unknown History (Lexapro) omeprazole 20 mg capsule,delayed 20 mg PO QDAY 5 Unknown History release Allergy/AdvReac Type Severity Reaction Status Date / Time No Known Allergies Allergy Verified 05/20/24 11:11 Family History Mother Thyroid disorder, Onset Age: 38 Hypothyroid Diabetes GDM with both pregnancies Grandmother Thyroid disorder, Onset Age: 55 Maternal-thyroid nodules benign Diabetes Maternal type 2 Grandmother Diabetes Paternal type 2 Surgical History Previous section [place] teeth extracted Social History adopted: No household members: spouse and children housing: house number of children: 1 current occupational status: unemployed current occupation: [employer] pets and animals: Yes (Avoid litterbox) pets and animals: cat(s) and dog(s) history of recent travel: No sexually active: Yes Smoking Status: Former smoker quit date: 01/11/24 pack-years: 3 Electronic Cigarette Use: with nicotine second hand exposure: No quit status: quit date established alcohol intake: current alcohol intake frequency: holidays/special occasions only details: not while substance use type: former substance user Date of last use: last used 03/25/24 and marijuana well-balanced diet: daily or most days caffeine: Yes Type: coffee Number of servings: 1 eating out: 1-3 times/week during the past year weight has: decreased > 10 lbs what type of physical activity do you participate in: none janet/yazidism: Adventism seatbelt use: always do you feel safe at home: Yes 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 ROS ED ROS Narrative Constitutional: Denies fevers, chills, headaches Abdomen: Denies abdominal pain nausea vomit diarrhea : Complains of vaginal spotting as noted above denies any painful urination Neurological: Denies numbness, weakness, tingling Musculoskeletal: Denies back pain Skin: Denies rashes or lesions EXAM Physical Exam Narrative Exam Narrative: General: Patient was lying in bed rest comfortably did not appear to be in acute distress Head: Atraumatic, normocephalic Eyes: PERRL bilaterally, EOMI bilaterally, no conjunctival injection noted Neck: Soft, supple, trachea midline Cardiovascular: Regular rate and rhythm no murmurs gallops rubs noted Respiratory: Clear to auscultation bilaterally Abdomen: Soft, nondistended, no tenderness palpation Const Vital Signs: 05/20/24 11:10 05/20/24 13:09 05/20/24 15:00 Temperature 97.1 F L Temperature Source Temporal Pulse Rate 101 H 78 78 Respiratory Rate 20 H 16 16 Blood Pressure 122/89 H 112/89 H 116/80 Blood Pressure Mean 100 96 92 Pulse Ox 98 98 98 Oxygen Delivery Method Room Air MDM MDM MDM Narrative Medical decision making narrative: Patient is a 23-year-old female who presented to the emergency department chief complaint of vaginal spotting while 8 weeks . On the differential diagnose includes but limited to ectopic , UTI, threatened , subchorionic hemorrhage. Once workup is obtained reviewed she will be reevaluated. The patient CBC reviewed and showed no evidence leukocytosis white blood count was 0.2, he was 13.6, plate count noted be 250. Patient sodium 138, potassium normal 3.7, creatinine 0.59. Patient AST and ALT of 217 and 17 respectively, hCG quant was 52,866. Patient's urinalysis showed no evidence of infection. Patient's ultrasound was reviewed and showed a single live intrauterine gestational sac 17 mm pole corresponding to gestational age of 8 weeks expected delivery date of 12/30/2024. There is a small 1.1 cm suspected perigestational hemorrhage may account for the patient presentation. Simple appearing 1.1 cm right adnexal cyst. Recommend routine complete anatomic survey at 20 weeks. I called on-call [facility] for [place] Dr. Freedman who states that the patient be placed on pelvic rest no heavy lifting no exercising. I discussed this plan with the patient she is agreeable this plan she has to follow-up on Sunday with them as well I gave her a hard copy of her ultrasound results. She is encouraged return with worsening symptoms or concerns. All question concerns answered she was discharged home in stable condition. Lab Data Labs: Laboratory Results - last 24 hr 05/20/24 05/20/24 05/20/24 11:57 11:57 11:57 WBC RBC Hgb Hct MCV MCH MCHC RDW Std Deviation RDW Coeff of Benjamin Plt Count MPV Immature Gran % (Auto) Neut % (Auto) Lymph % (Auto) [place] % (Auto) Eos % (Auto) Baso % (Auto) Absolute Neuts (auto) Absolute Lymphs (auto) Nucleated RBC % Sodium Potassium Chloride Carbon Dioxide Anion Gap BUN Creatinine Estim Creat Clear Calc Est GFR (MDRD) Non-Af BUN/Creatinine Ratio Glucose Calcium Total Bilirubin AST ALT Alkaline Phosphatase Total Protein Albumin Globulin Albumin/Globulin Ratio HCG, Quant Serum , Qual Urine Color Straw Cancelled Urine Clarity Clear Cancelled Urine pH 7.0 Ur Specific [place] U Specif Grav (Refrac) Urine Protein Urine Glucose (UA) Urine Ketones Urine Occult Blood Urine Nitrite Urine Bilirubin Urine Urobilinogen Ur Leukocyte Esterase Urine RBC Urine WBC Ur Squamous Epith Cells Ur Transition Epith Cell Ur Renal Epithelial Cell Calcium Oxalate Crystal Uric Acid Crystals Triple Phos Crystals Other Crystals Amorphous Sediment Urine Bacteria Hyaline Casts Fine Granular Casts Coarse Granular Casts Waxy Casts RBC Casts WBC Casts Urine Mucus Urine Trichomonas Urine Yeast Blood Type 05/20/24 05/20/24 05/20/24 11:57 11:57 11:57 WBC RBC Hgb Hct MCV MCH MCHC RDW Std Deviation RDW Coeff of Benjamin Plt Count MPV Immature Gran % (Auto) Neut % (Auto) Lymph % (Auto) [place] % (Auto) Eos % (Auto) Baso % (Auto) Absolute Neuts (auto) Absolute Lymphs (auto) Nucleated RBC % Sodium Potassium Chloride Carbon Dioxide Anion Gap BUN Creatinine Estim Creat Clear Calc Est GFR (MDRD) Non-Af BUN/Creatinine Ratio Glucose Calcium Total Bilirubin AST ALT Alkaline Phosphatase Total Protein Albumin Globulin Albumin/Globulin Ratio HCG, Quant Serum , Qual Urine Color Urine Clarity Urine pH Cancelled Ur Specific [place] 1.005 Cancelled U Specif Grav (Refrac) Cancelled Urine Protein Negative Cancelled Urine Glucose (UA) Normal Urine Ketones Urine Occult Blood Urine Nitrite Urine Bilirubin Urine Urobilinogen Ur Leukocyte Esterase Urine RBC Urine WBC Ur Squamous Epith Cells Ur Transition Epith Cell Ur Renal Epithelial Cell Calcium Oxalate Crystal Uric Acid Crystals Triple Phos Crystals Other Crystals Amorphous Sediment Urine Bacteria Hyaline Casts Fine Granular Casts Coarse Granular Casts Waxy Casts RBC Casts WBC Casts Urine Mucus Urine Trichomonas Urine Yeast Blood Type 05/20/24 05/20/24 05/20/24 11:57 11:57 11:57 WBC RBC Hgb Hct MCV MCH MCHC RDW Std Deviation RDW Coeff of Benjamin Plt Count MPV Immature Gran % (Auto) Neut % (Auto) Lymph % (Auto) [place] % (Auto) Eos % (Auto) Baso % (Auto) Absolute Neuts (auto) Absolute Lymphs (auto) Nucleated RBC % Sodium Potassium Chloride Carbon Dioxide Anion Gap BUN Creatinine Estim Creat Clear Calc Est GFR (MDRD) Non-Af BUN/Creatinine Ratio Glucose Calcium Total Bilirubin AST ALT Alkaline Phosphatase Total Protein Albumin Globulin Albumin/Globulin Ratio HCG, Quant Serum , Qual Urine Color Urine Clarity Urine pH Ur Specific [place] U Specif Grav (Refrac) Urine Protein Urine Glucose (UA) Cancelled Urine Ketones Negative Cancelled Urine Occult Blood 10 H Cancelled Urine Nitrite Negative Urine Bilirubin Urine Urobilinogen Ur Leukocyte Esterase Urine RBC Urine WBC Ur Squamous Epith Cells Ur Transition Epith Cell Ur Renal Epithelial Cell Calcium Oxalate Crystal Uric Acid Crystals Triple Phos Crystals Other Crystals Amorphous Sediment Urine Bacteria Hyaline Casts Fine Granular Casts Coarse Granular Casts Waxy Casts RBC Casts WBC Casts Urine Mucus Urine Trichomonas Urine Yeast Blood Type 05/20/24 05/20/24 05/20/24 11:57 11:57 11:57 WBC RBC Hgb Hct MCV MCH MCHC RDW Std Deviation RDW Coeff of Benjamin Plt Count MPV Immature Gran % (Auto) Neut % (Auto) Lymph % (Auto) [place] % (Auto) Eos % (Auto) Baso % (Auto) Absolute Neuts (auto) Absolute Lymphs (auto) Nucleated RBC % Sodium Potassium Chloride Carbon Dioxide Anion Gap BUN Creatinine Estim Creat Clear Calc Est GFR (MDRD) Non-Af BUN/Creatinine Ratio Glucose Calcium Total Bilirubin AST ALT Alkaline Phosphatase Total Protein Albumin Globulin Albumin/Globulin Ratio HCG, Quant Serum , Qual Urine Color Urine Clarity Urine pH Ur Specific [place] U Specif Grav (Refrac) Urine Protein Urine Glucose (UA) Urine Ketones Urine Occult Blood Urine Nitrite Cancelled Urine Bilirubin Negative Cancelled Urine Urobilinogen Normal Cancelled Ur Leukocyte Esterase 25 H Urine RBC Urine WBC Ur Squamous Epith Cells Ur Transition Epith Cell Ur Renal Epithelial Cell Calcium Oxalate Crystal Uric Acid Crystals Triple Phos Crystals Other Crystals Amorphous Sediment Urine Bacteria Hyaline Casts Fine Granular Casts Coarse Granular Casts Waxy Casts RBC Casts WBC Casts Urine Mucus Urine Trichomonas Urine Yeast Blood Type 05/20/24 05/20/24 05/20/24 11:57 11:57 11:57 WBC RBC Hgb Hct MCV MCH MCHC RDW Std Deviation RDW Coeff of Benjamin Plt Count MPV Immature Gran % (Auto) Neut % (Auto) Lymph % (Auto) [place] % (Auto) Eos % (Auto) Baso % (Auto) Absolute Neuts (auto) Absolute Lymphs (auto) Nucleated RBC % Sodium Potassium Chloride Carbon Dioxide Anion Gap BUN Creatinine Estim Creat Clear Calc Est GFR (MDRD) Non-Af BUN/Creatinine Ratio Glucose Calcium Total Bilirubin AST ALT Alkaline Phosphatase Total Protein Albumin Globulin Albumin/Globulin Ratio HCG, Quant Serum , Qual Urine Color Urine Clarity Urine pH Ur Specific [place] U Specif Grav (Refrac) Urine Protein Urine Glucose (UA) Urine Ketones Urine Occult Blood Urine Nitrite Urine Bilirubin Urine Urobilinogen Ur Leukocyte Esterase Cancelled Urine RBC 0-5 SEEN Cancelled Urine WBC 0-5 SEEN Cancelled Ur Squamous Epith Cells 0-5 SEEN Ur Transition Epith Cell Ur Renal Epithelial Cell Calcium Oxalate Crystal Uric Acid Crystals Triple Phos Crystals Other Crystals Amorphous Sediment Urine Bacteria Hyaline Casts Fine Granular Casts Coarse Granular Casts Waxy Casts RBC Casts WBC Casts Urine Mucus Urine Trichomonas Urine Yeast Blood Type 05/20/24 05/20/24 05/20/24 11:57 11:57 11:57 WBC RBC Hgb Hct MCV MCH MCHC RDW Std Deviation RDW Coeff of Benjamin Plt Count MPV Immature Gran % (Auto) Neut % (Auto) Lymph % (Auto) [place] % (Auto) Eos % (Auto) Baso % (Auto) Absolute Neuts (auto) Absolute Lymphs (auto) Nucleated RBC % Sodium Potassium Chloride Carbon Dioxide Anion Gap BUN Creatinine Estim Creat Clear Calc Est GFR (MDRD) Non-Af BUN/Creatinine Ratio Glucose Calcium Total Bilirubin AST ALT Alkaline Phosphatase Total Protein Albumin Globulin Albumin/Globulin Ratio HCG, Quant Serum , Qual Urine Color Urine Clarity Urine pH Ur Specific [place] U Specif Grav (Refrac) Urine Protein Urine Glucose (UA) Urine Ketones Urine Occult Blood Urine Nitrite Urine Bilirubin Urine Urobilinogen Ur Leukocyte Esterase Urine RBC Urine WBC Ur Squamous Epith Cells Cancelled Ur Transition Epith Cell Cancelled Ur Renal Epithelial Cell Cancelled Calcium Oxalate Crystal Cancelled Uric Acid Crystals Cancelled Triple Phos Crystals Cancelled Other Crystals Cancelled Amorphous Sediment Cancelled Urine Bacteria 0 SEEN Cancelled Hyaline Casts Cancelled Fine Granular Casts Cancelled Coarse Granular Casts Cancelled Waxy Casts Cancelled RBC Casts Cancelled WBC Casts Cancelled Urine Mucus 0 SEEN Cancelled Urine Trichomonas Cancelled Urine Yeast Cancelled Blood Type 05/20/24 13:03 WBC 7.2 RBC 4.70 Hgb 13.6 Hct 39.8 MCV 84.7 MCH 28.9 MCHC 34.2 RDW Std Deviation 38.5 RDW Coeff of Benjamin 12.6 Plt Count 250 MPV 9.2 Immature Gran % (Auto) 0.300 Neut % (Auto) 57.9 Lymph % (Auto) 30.2 [place] % (Auto) 9.4 Eos % (Auto) 1.8 Baso % (Auto) 0.4 Absolute Neuts (auto) 4.2 Absolute Lymphs (auto) 2.18 Nucleated RBC % 0 Sodium 138 Potassium 3.7 Chloride 104 Carbon Dioxide 22.8 Anion Gap 11 BUN 7 Creatinine 0.59 L Estim Creat Clear Calc 191.87 Est GFR (MDRD) Non-Af 129 BUN/Creatinine Ratio 11.5 Glucose 84 Calcium 9.2 Total Bilirubin 0.25 AST 17 ALT 17 Alkaline Phosphatase 76 Total Protein 7.0 Albumin 3.9 Globulin 3.0 Albumin/Globulin Ratio 1.3 HCG, Quant 53213 H Serum , Qual Cancelled Urine Color Urine Clarity Urine pH Ur Specific [place] U Specif Grav (Refrac) Urine Protein Urine Glucose (UA) Urine Ketones Urine Occult Blood Urine Nitrite Urine Bilirubin Urine Urobilinogen Ur Leukocyte Esterase Urine RBC Urine WBC Ur Squamous Epith Cells Ur Transition Epith Cell Ur Renal Epithelial Cell Calcium Oxalate Crystal Uric Acid Crystals Triple Phos Crystals Other Crystals Amorphous Sediment Urine Bacteria Hyaline Casts Fine Granular Casts Coarse Granular Casts Waxy Casts RBC Casts WBC Casts Urine Mucus Urine Trichomonas Urine Yeast Blood Type B POSITIVE Radiography Diagnostic Testing: Clinical Impression(s) from Imaging Studies Obstetrics Ultrasound 05/20/24 12:52 IMPRESSION: 1. Single living intrauterine gestational sac with including 17 mm pole corresponding to a gestational age of 8 weeks 0 days corresponding to RICHARD 12/30/2024. This is compatible with reported previously established dates. 2. Small 1.1 cm suspected perigestational hemorrhage may account for patient presentation. Recommend clinical follow-up. 3. Simple appearing 1.1 cm right adnexal cyst, not clearly located within the ovary. This may reflect a physiologic cysts or perhaps a paraovarian cyst. 4. Recommend routine complete anatomic survey at 20 weeks. 5. Additional description as above. Reading Location: [id number] Discharge Plan Triage Chief Complaint: Vag Bld, Preg ED Provider: Brody Cleaning Dx/Rx/DC Orders Clinical Impression: Vaginal bleeding affecting early Prescriptions: No Action escitalopram oxalate [Lexapro] 20 mg tablet 20 mg PO QDAY omeprazole 20 mg capsule,delayed release(DR/EC) 20 mg PO QDAY cholecalciferol (vitamin D3) 50 mcg (2,000 unit) capsule 50 mcg PO QDAY [id number] ac-dha 1 EACH combo pack 1 ea PO DAILY Primary Care Provider: JHON SCOTT Referrals: JHON SCOTT DO [Primary Care Provider] - Activity Restrictions/Additional Instructions: Follow-up with your FRAME COVERER in the outpatient setting on Sunday or scheduled appointment. Take your ultrasound results with you to that appointment. No lifting heavy things no exercising no intercourse you are placed on pelvic rest. Return if worsening symptoms or any concerns Print Language: Portuguese Disposition Disposition: Home, Self Care
[2024-05-20 14:00] LABS: ALB/GLOB Ratio 1.3 RATIO (0.9-2.4); AST(SGOT) 17 U/L (<=31); Alanine Aminotransfer ALT/SGPT 17 U/L (<=34); Albumin, Serum 3.9 g/dL (3.5-5.0); Alkaline Phosphatase 76 U/L (35-104); Anion Gap 11 (5-15); BUN 7 mg/dL (4-19); BUN/Creat Ratio 11.5 RATIO (10-20); Calcium,Total 9.2 mg/dL (7.6-11.0); Carbon Dioxide 22.8 mmol/L (21.0-32.0); Chloride 104 mmol/L (98-108); Creatinine, Serum 0.59 mg/dL (0.70-1.20); EST Glomerular Filtration Rate 129 (>60); Estimated Creatinine Clearance 191.87 ml/min (50-250); Glucose 84 mg/dL (70-99); Potassium 3.7 mmol/L (3.3-5.1); Sodium Level 138 mmol/L (133-145); Total Bilirubin 0.25 mg/dL (0.00-1.30)
[2024-05-20 15:00] VITALS: BP 116/80; PULSE 78; RESP 16; O2SAT 98
[2024-05-20 15:00] LABS: hCG Titer Quant., Serum 52866 mIU/mL (<9 non-preg)
== END 2024-05-20 17:02 | disposition home or self-care (01) ==
PROVIDERS: Emergency Provider Emergency Medicine; PCP Student in an Organized Health Care Education/Training Program; Visit Provider Emergency Medicine
DX: O20.9 Hemorrhage in early pregnancy, unspecified (principal); Z87.891 Personal history of nicotine dependence; Z3A.08 8 weeks gestation of pregnancy; O99.341 Other mental disorders complicating pregnancy, first trimester; F32.A Depression, unspecified; F41.9 Anxiety disorder, unspecified; Z79.899 Other long term (current) drug therapy
CPT/HCPCS: 76817; 80053; 81001; 84702; 85025; 86900; 86901; 87086; 87088; 99283; A4216

== ENCOUNTER → 2024-05-23 | Outpatient (CLI) | payer BC, SELFPAY ==
[2024-05-27 04:07] LABS: Chlamydia By Nucleic Acid AMP Negative (Negative); Gonococcus By Nucleic Acid AMP Negative (Negative)
== END | disposition home or self-care (01) ==
PROVIDERS: PCP Student in an Organized Health Care Education/Training Program; Visit Provider Advanced Practice Midwife
DX: O09.90 Supervision of high risk pregnancy, unspecified, unspecified trimester (principal); Z3A.00 Weeks of gestation of pregnancy not specified
CPT/HCPCS: 87086; 87088; 87491; 87591

== ENCOUNTER 2024-06-13 16:23 | Emergency (ER) | payer BC, SELFPAY ==
[2024-06-13 16:24] VITALS: BP 131/89; PULSE 76; RESP 16; TEMP 36.8; O2SAT 99; BMI 39.1
--- NOTE | 2024-06-13 16:54 | US_ITS ---
PROCEDURE: KIDNEY AND BLADDER 06/13/2024 REASON FOR EXAM: RLQ PAIN, 11 WKS PREG TECHNIQUE: Bilateral renal and bladder ultrasound. COMPARISON: None available FINDINGS: The bladder measures 120 cc with a wall thickness of 3 mm and appears within limits. Bilateral ureteral jets are noted during imaging. The distal ureters are not identified. The right kidney measures 11.6 x 7.4 x 4.4 cm with a cortical thickness of 1 cm. The left kidney measures 12.2 x 6.1 x 5.4 cm with a cortical thickness of 1.3 cm. The kidneys appear within limits for echogenicity without stones, hydronephrosis or perinephric edema seen. No free fluid seen. US/Kidney and Bladder IMPRESSION: The study appears within limits. Reading Location: [id number]
--- NOTE | 2024-06-13 16:57 | EDS_ITS ---
HPI HPI - GI History of Present Illness Chief Complaint: Abd Pain Informant: patient Narrative Narrative: 23-year-old female 11 weeks sent over by OB because of tenderness in right lower quadrant and pain that she has had off-and-on for the past 4 days, concern for possible appendicitis. They did an ultrasound in the office showed that the baby looked good. She has a subchorionic hemorrhage. Patient states that she had bleeding when she was 8 weeks along for couple days, which is when she was diagnosed with a subchorionic hemorrhage. She has had no bleeding since then until today when she started spotting. She states the pain has been intermittent. She states for the most part it has been brief, where she will suddenly feel a sharp pain in her right lower quadrant and then it will go away less than a minute. This is been occurring multiple times during the day. She been nauseated throughout her , no vomiting, that has not changed recently. No changes in her appetite in last 4 to 5 days, she states she takes small amounts of food frequently throughout the day because it keeps her nausea controlled and it is not changed. Denies any pain into the flank or the back. No history of kidney stones but states her mom has a strong history of them. She states she has urinary frequency for the past several weeks that she attributes to , no changes in that no dysuria or hematuria. [facility] Medical History Seasonal allergies Depression Anxiety Home Medications ?Medication ?Instructions ?Recorded ?Last Taken ?Type vit no.105-iron 30 1 ea PO DAILY 12/28/19 History mg-folic acid 1.4 mg-dha 300 mg oral pack cholecalciferol (vitamin D3) 50 50 mcg PO QDAY 5 Unknown History mcg (2,000 unit) capsule escitalopram oxalate 20 mg tablet 20 mg PO QDAY Unknown History (Lexapro) omeprazole 20 mg capsule,delayed 20 mg PO QDAY 5 Unknown History release Allergy/AdvReac Type Severity Reaction Status Date / Time No Known Allergies Allergy Verified 06/13/24 16:24 Family History Mother Thyroid disorder, Onset Age: 38 Hypothyroid Diabetes GDM with both pregnancies Grandmother Thyroid disorder, Onset Age: 55 Maternal-thyroid nodules benign Diabetes Maternal type 2 Grandmother Diabetes Paternal type 2 Surgical History Previous section Le[place] teeth extracted Social History adopted: No household members: spouse and children housing: house number of children: 1 current occupational status: unemployed current occupation: [employer] pets and animals: Yes (Avoid litterbox) pets and animals: cat(s) and dog(s) history of recent travel: No sexually active: Yes Smoking Status: Former smoker quit date: 01/11/24 pack-years: 3 Electronic Cigarette Use: with nicotine second hand exposure: No quit status: quit date established alcohol intake: current alcohol intake frequency: holidays/special occasions only details: not while substance use type: former substance user Date of last use: last used 03/25/24 and marijuana well-balanced diet: daily or most days caffeine: Yes Type: coffee Number of servings: 1 eating out: 1-3 times/week during the past year weight has: decreased > 10 lbs what type of physical activity do you participate in: none janet/latter day: Holiness seatbelt use: always do you feel safe at home: Yes 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[facility] [place] ROS ED Constitutional Constitutional ED: Denies chills or fever(s) Eyes Eyes: Denies change in vision or diplopia ENT ENT ED: Denies rhinorrhea or sore throat Cardiovascular Cardiovascular: Denies chest pain or palpitations Respiratory/Chest Respiratory/Chest: Denies cough or dyspnea Gastrointestinal Gastrointestinal: Reports abdominal pain and nausea; Denies diarrhea or vomiting Genitourinary Genitourinary ED: Reports as per HPI and urinary frequency; Denies dysuria or hematuria Musculoskeletal Musculoskeletal: Denies back pain or neck pain Integumentary Denies abscess or rash Neurologic Neurologic: Denies headache(s), paresthesias or weakness Psychiatric Psychiatric: Denies anxiety or suicidal thoughts EXAM Physical Exam Const Vital Signs: 06/13/24 16:24 06/13/24 19:02 Temperature 98.2 F Temperature Source Oral Pulse Rate 76 75 Respiratory Rate 16 Blood Pressure 131/89 H 145/91 H Blood Pressure Mean 103 109 Pulse Ox 99 99 Oxygen Delivery Method Room Air Room Air Positive well nourished and well developed General Appearance ED: well developed and NAD HEENT Reports moist mucous membranes normocephalic and atraumatic Eyes PERRL and EOMs intact bilaterally Neck full ROM and supple Resp normal respiratory effort and clear to auscultation bilaterally Cardio regular rate, regular rhythm and no murmurs GI non-distended GI Narrative: Tenderness is present at McBurney's point and also a little more distal to this toward her ASIS, little more prominent distally than at McBurney's point. No other areas of tenderness. No guarding or rebound. Auscultation: normoactive bowel sounds Palpation: soft Back/Spine no CVA tenderness General Back: other FROM Extremity normal to inspection General Extremety ED: Negative for edema, pulses abnormal or tenderness General Extremity: Negative for edema or pulses abnormal Neuro oriented x3, CN's II-XII intact bilaterally and no sensory deficits noted Sensorium / Orientation: awake and alert Motor Exam: strength 5/5 throughout Skin no rashes or lesions noted and no wounds MDM MDM MDM Narrative Medical decision making narrative: As I discussed with this patient, the only way to definitively rule out appendicitis emergently is with a CT. We do not have ultrasound that does appendix scans. She really does not want a CT if she does not needed which I certainly understand. We can start with blood work and an ultrasound of the kidneys and bladder. Appendicitis certainly is in the differential diagnosis as is ureterolithiasis, ligament pain, she is not examining like this is torsion, she is very comfortable being with examination. Provide blood count comes back at 8.7 with no leftward shift, arguing against acute appendicitis after having pain for [address]. [address] Ervin Chris was in agreement, and we discussed the ultrasound that I had ordered on her kidneys and bladder, and after discussing all of this we both thought it was a good idea to add her ovaries on since she had not had the ultrasound yet. I reviewed the images of both of these orders and the reports which I reviewed and agree with, they are negative for any acute. At this time I think the patient can be safely discharged home to follow-up as an outpatient. She is comfortable with that plan as well we discussed reasons to return. Lab Data Attestation: I reviewed the patient's lab results. Labs: Laboratory Results - last 24 hr 06/13/24 06/13/24 16:47 17:05 WBC 8.7 RBC 4.51 Hgb 13.3 Hct 37.8 MCV 83.8 MCH 29.5 MCHC 35.2 RDW Std Deviation 39.9 RDW Coeff of Benjamin 13.1 Plt Count 257 MPV 9.2 Immature Gran % (Auto) 0.200 Neut % (Auto) 66.2 Lymph % (Auto) 25.9 [place] % (Auto) 5.4 Eos % (Auto) 2.0 Baso % (Auto) 0.3 Absolute Neuts (auto) 5.7 Absolute Lymphs (auto) 2.25 Nucleated RBC % 0 Sodium 137 Potassium 3.9 Chloride 104 Carbon Dioxide 21.8 Anion Gap 12 BUN 6 Creatinine 0.58 L Estim Creat Clear Calc 194.36 Est GFR (MDRD) Non-Af 130 BUN/Creatinine Ratio 10.0 Glucose 96 Calcium 9.2 Urine Color Yellow Urine Clarity Sl. Cloudy Urine pH 6.0 Ur Specific [place] 1.020 Urine Protein Negative Urine Glucose (UA) Normal Urine Ketones Negative Urine Occult Blood Negative Urine Nitrite Negative Urine Bilirubin Negative Urine Urobilinogen Normal Ur Leukocyte Esterase Negative Urine RBC 0 SEEN Urine WBC 0 SEEN Ur Squamous Epith Cells 0-5 SEEN Amorphous Sediment 1+ URATE Urine Bacteria 0 SEEN Urine Mucus 0 SEEN Radiography Diagnostic Testing: Clinical Impression(s) from Imaging Studies Renal Ultrasound 06/13/24 16:54 IMPRESSION: The study appears within limits. Reading Location: [facility] Obstetrics Ultrasound 06/13/24 18:00 IMPRESSION: Single live intrauterine as above. Reading Location: [facility] Discharge Plan Triage Chief Complaint: Abd Pain ED Provider: Rubens Escudero Dx/Rx/DC Orders Clinical Impression: Abdominal pain of right lower quadrant during , antepartum Instructions: ED Abdominal Pain, Early Prescriptions: No Action escitalopram oxalate [Lexapro] 20 mg tablet 20 mg PO QDAY omeprazole 20 mg capsule,delayed release(DR/EC) 20 mg PO QDAY cholecalciferol (vitamin D3) 50 mcg (2,000 unit) capsule 50 mcg PO QDAY [id number] ac-dha 1 EACH combo pack 1 ea PO DAILY Primary Care Provider: JHON SCOTT Referrals: Ana Laura Mercado MD [Med Staff - Active Staff] - 3-5 Days if not improving Print Language: Romanian Disposition Disposition: Home, Self Care
[2024-06-13 17:03] LABS: Absolute Lymphocyte Count 2.25 X10^3/uL (0.83-4.51); Absolute Neutrophil Count 5.7 X10^3/uL (2.0-7.7); Basophil# 0.03 X10^3/uL; Basophil% 0.3 % (0-1); Eosinophil# 0.17 X10^3/uL; Hematocrit 37.8 % (37-47); Hemoglobin 13.3 g/dL (12.0-15.0); Lymphocyte # 2.25 X10^3/ul (0.83-4.51); Lymphocyte % 25.9 % (19-41); Mean Corp Hgb Conc 35.2 g/dL (32-36); Mean Corpuscular Hgb 29.5 pg (27.0-32.0); Mean Corpuscular Volume 83.8 fL (81-99); Mean Platelet Vol. 9.2 fl (6.2-12.0); Monocyte# 0.47 X10^3/uL; Monocyte% 5.4 % (0-10); NRBC Flagged by Analyzer 0 % (0-5); Neutrophil # 5.74 X10^3/uL (2.7-7.7); Neutrophil % 66.2 % (47-70); Platelet Count 257 K/mm3 (150-450); RBC Distribution Width CV 13.1 % (11.6-14.6); RBC Distribution Width SD 39.9 fl (35.1-43.9); Red Blood Count 4.51 M/mm3 (4.2-5.4); White Blood Count 8.7 K/mm3 (4.4-11.0)
[2024-06-13 17:12] LABS: Bacteria 0 SEEN /hpf (None Seen); Mucous, Urine 0 SEEN /hpf (<or=2+); Red Blood Cells-Urine 0 SEEN /hpf (0-5); White Blood Cells 0 SEEN /hpf (0-5)
[2024-06-13 17:15] LABS: Color, Urine Yellow (Yellow); Glucose, Dipstick Normal (Normal); Ketone-Dipstick Negative (Negative); Leukocyte Esterase-Dipstick Negative /ul (Negative); Nitrite-Dipstick Negative (Negative); Occult Blood-Urine Negative /ul (Negative); Protein-Dipstick Negative (Negative); Urine Bilirubin Dipstick Negative (Negative); Urine Clarity Sl. Cloudy (Clear); Urine Urobilinogen Normal (Normal)
[2024-06-13 17:26] LABS: Amorphous Sediment 1+ URATE; Squamous Epithelial Cells - UA 0-5 SEEN /hpf (5-10)
[2024-06-13 17:40] LABS: Anion Gap 12 (5-15); BUN 6 mg/dL (4-19); Calcium,Total 9.2 mg/dL (7.6-11.0); Carbon Dioxide 21.8 mmol/L (21.0-32.0); Chloride 104 mmol/L (98-108); Creatinine, Serum 0.58 mg/dL (0.70-1.20); EST Glomerular Filtration Rate 130 (>60); Estimated Creatinine Clearance 194.36 ml/min (50-250); Glucose 96 mg/dL (70-99); Potassium 3.9 mmol/L (3.3-5.1); Sodium Level 137 mmol/L (133-145)
--- NOTE | 2024-06-13 18:00 | US_ITS ---
PROCEDURE: TRANSVAGINAL W/PREG US 06/13/2024 REASON FOR EXAM: R PELVIC PAIN TECHNIQUE: Transabdominal and transvaginal imaging with Doppler COMPARISON: 05/20/2024 FINDINGS: Single live intrauterine with heart rate 159 beats per minute. Estimated gestational age by gestational sac 10 weeks and 5 days, crown-rump length 11 weeks and 5 days. Estimated gestational age by ultrasound 11 weeks and 2 days, RICHARD 10 05/01/2024 Estimated gestational age by LMP 11 weeks 2 days, RICHARD 12/31/2021 by No chelo sac hemorrhage seen. The cervix appears closed. The uterus measures 12 x 8.7 x 7.3 cm and appears within limits. The right ovary measures 3.4 x 1.7 x 1.6 cm. The left ovary measures 3.3 x 1.9 x 2.5 cm. The left ovary contains a hypoechoic focus measuring 2.1 x 1.6 x 1.5 cm, possible corpus luteum cyst. The ovaries appear within limits with bilateral arterial and venous flow seen. No adnexal mass identified. No free fluid seen. US/Transvaginal w/Preg US IMPRESSION: Single live intrauterine as above. Reading Location: [id number]
[2024-06-13 19:02] VITALS: BP 145/91; PULSE 75; O2SAT 99
== END 2024-06-13 21:04 | disposition home or self-care (01) ==
PROVIDERS: Emergency Provider Emergency Medicine; PCP Student in an Organized Health Care Education/Training Program; Visit Provider Emergency Medicine
DX: O26.891 Other specified pregnancy related conditions, first trimester (principal); R10.31 Right lower quadrant pain; Z3A.11 11 weeks gestation of pregnancy; Z87.891 Personal history of nicotine dependence
CPT/HCPCS: 76770; 76817; 80048; 81001; 85025; 99283; A4216

== ENCOUNTER → 2024-06-19 | Outpatient (CLI) | payer BC, SELFPAY ==
[2024-06-19 17:10] LABS: Absolute Lymphocyte Count 2.12 X10^3/uL (0.83-4.51); Absolute Neutrophil Count 5.4 X10^3/uL (2.0-7.7); Basophil# 0.03 X10^3/uL; Basophil% 0.4 % (0-1); Eosinophil# 0.13 X10^3/uL; Eosinophils% 1.5 % (0-5); Hematocrit 39.2 % (37-47); Hemoglobin 13.4 g/dL (12.0-15.0); Lymphocyte # 2.12 X10^3/ul (0.83-4.51); Lymphocyte % 25.2 % (19-41); Mean Corp Hgb Conc 34.2 g/dL (32-36); Mean Corpuscular Hgb 29.1 pg (27.0-32.0); Mean Platelet Vol. 9.4 fl (6.2-12.0); Monocyte# 0.66 X10^3/uL; Monocyte% 7.8 % (0-10); NRBC Flagged by Analyzer 0 % (0-5); Neutrophil # 5.44 X10^3/uL (2.7-7.7); Neutrophil % 64.7 % (47-70); Platelet Count 266 K/mm3 (150-450); RBC Distribution Width CV 12.9 % (11.6-14.6); RBC Distribution Width SD 39.6 fl (35.1-43.9); Red Blood Count 4.61 M/mm3 (4.2-5.4); White Blood Count 8.4 K/mm3 (4.4-11.0)
[2024-06-19 17:51] LABS: Amphetamine Urine NEGATIVE (<1000 ng/mL); Barbiturate Urine NEGATIVE (< 200 ng/mL); Benzodiazepine Urine NEGATIVE (< 200 ng/mL); Buprenorphine Urine NEGATIVE (< 200 ng/mL); Cocaine Urine NEGATIVE (< 300 ng/mL); Fentanyl, Urine NEGATIVE; Methadone Urine NEGATIVE (< 300 ng/mL); Opiates Urine NEGATIVE (< 300 ng/mL); Oxycodone, Urine NEGATIVE (< 100 ng/mL); PCP Urine NEGATIVE (< 25 ng/mL); THC Urine PRESUMPTIVE POSITIVE (< 50 ng/mL)
[2024-06-19 17:55] LABS: HIV Nonreactive (Nonreactive); Hepatitis B Surface Antigen Nonreactive (Nonreactive); Hepatitis C Antibody Nonreactive (Nonreactive); Rubella IgG REAC (Nonreactive); Syphilis Antibodies Nonreactive (Nonreactive)
== END | disposition home or self-care (01) ==
PROVIDERS: Advanced Practice Midwife; PCP Student in an Organized Health Care Education/Training Program; Referring Provider Obstetrics & Gynecology; Visit Provider Obstetrics & Gynecology
DX: O09.91 Supervision of high risk pregnancy, unspecified, first trimester (principal); F12.20 Cannabis dependence, uncomplicated; O99.321 Drug use complicating pregnancy, first trimester; O99.211 Obesity complicating pregnancy, first trimester; Z3A.00 Weeks of gestation of pregnancy not specified
CPT/HCPCS: 36415; 80307; 83036; 85025; 86703; 86762; 86780; 86803; 86850; 86900; 86901; 87340

== ENCOUNTER 2024-10-05 14:15 | Outpatient (CLI) | payer BC, SELFPAY ==
--- OUTSIDE RECORDS SUMMARY | 2024-10-05 14:37 | XMS RPT_ITS | CCD ---
Author Organization [facility] Care Team Providers Care Facial Operator Name Role Phone Dillonn Merle L Unavailable Unavaila ble BennettBrown Merle L Unavailable Unavaila ble Florence Ferrer L Unavailable Unavailable DINORA SHERIDAN CNP Attending Unavailable DINORA SHERIDAN CNP Primary Care Unavailable DINORA SHERIDAN CNP Admitting Unavailable Scott, Jhon A Unavailable Unavailable Unavailable SCOTT, DO JHON Referring Unavailable SCOTT, DO JHON Attending Unavailable SCOTT, DO JHON Primary Care Unavailable SCOTT, DO JHON Primary Care Unavailable SCOTT, DO JHON Referring Unavailable SCOTT, DO JHON Attending Unavailable Scott DO, Jhon A Primary Care Provider Scott DO, Jhon A Unavailable SCOTT, JHON A Primary Care Unavailable SCOTT, JHON A Primary Care Unavailable SCOTT, JHON A Primary Care Unavailable MUMTAZ MARCIAL Attending Unavailable SCOTT, JHON A Attending Unavailable SCOTT, JHON A Referring Unavailable SCOTT, JHON A Primary Care Unavailable SCOTT, JHON A Attending Unavailable SCOTT, JHON A Referring Unavailable SCOTT, JHON A Primary Care Unavailable SCOTT, JHON A Attending Unavailable SCOTT, JHON A Referring Unavailable SCOTT, JHON A Primary Care Unavailable SCOTT, JHON A Attending Unavailable SCOTT, JHON A Referring Unavailable SCOTT, JHON A Primary Care Unavailable No, Physician Primary Care Provider Unavailabl e NO, PHYSICIAN Primary Care Unavailable CAMILLA ASHLEY Attending Unava ilable PAL BOOKER Attending Unavail able SCOTT, JHON Referring Unavailable SCOTT, JHON Admitting Unavailable NO, PHYSICIAN Primary Care Unavailable NO, PHYSICIAN Primary Care Unavailable PAL BOOKER Attending Unavail able PAL BOOKER Admitting Unavail able Dr. Brody Cleaning DO Emergency Provider SCOTT DO, JHON Primary Care Provider Hermila GIORDANO, Dr. Skinner Attending Provider Care Physician, No Primary Referring Provider Un available Amada Black CNM Attending Provider SCOTT DO, JHON Referring Provider eKna SOOD, Dr. Art Emergency Provider Kena SOOD, Dr. Art Attending Provider Charlie Quintanilla DO, Dr. Bowers Attending Provider Charlie Quintanilla DO, Dr. Bowers Referring Provider Gabi CUSTOMER SERVICE COORDINATOR-CMatt Attending Provider NO PRIMARY CARE, MD Primary Care Unavailable ELISSA FREEDMAN Referring Unavailab CK Steele Attending Unavailable NO PRIMARY CARE, Primary Care Unavailable MARIA ANTONIA AMBROSE Attending Unavailable MATT ASHLEY Referring Unavailable Jess SOOD, Dr. Du Attending Provider Ana Laura Mercado Admitting Unavailable Ana Laura Mercado Attending Unavailable SCOTT, JHON Primary Care Unavailable Elissa Weldon Attending UnavailElissa Mcpherson Referring Unavailabl e SCOTT, JHON Primary Care Unavailable SCOTT, JHON Primary Care Unavailable Amada Black Attending Unavailable Rubens Escudero Attending Unavailable SCOTT, JHON Primary Care Unavailable SCOTT, JHON Primary Care Unavailable Brody Cleaning Attending Unavailable SCOTT, JHON Primary Care Unavailable Amada Black Attending Unavailable Care Physician, No Primary Referring Unava ilable Ana Laura Mercado Attending Unavailable SCOTT, JHON Referring Unavailable SCOTT, JHON Primary Care Unavailable Matt Ashley NP Attending Unavailable SCOTT, JHON Referring Unavailable SCOTT, JHON Primary Care Unavailable VandElissa Freitas Attending Unavailabl e SCOTT, JHON Referring Unavailable SCOTT, JHON Primary Care Unavailable Amada Black Attending Unavailable SCOTT, JHON Referring Unavailable SCOTT, JHON Primary Care Unavailable Matt Ashley NP Attending Unavailable SCOTT, JHON Referring Unavailable SCOTT, JHON Primary Care Unavailable Amada Black Attending Unavailable SCOTT, JHON Referring Unavailable SCOTT, JHON Primary Care Unavailable Care Physician, No Primary Referring Unava ilable Elissa Weldon Attending Unavailabl e SCOTT, JHON Primary Care Unavailable SCOTT, JHON Primary Care Unavailable Amada Black Attending Unavailable SCOTT, JHON Referring Unavailable Allergies Allergy Classification Reported Allergen(s) Allergy Type Date of Onset Reaction(s) Facility (6 sources) topiramate; Translations: [TOPIRAMATE] Drug Allergy 09-06-2017 Other (See Comments) [facility] Medications Current Medications Medication Drug Class(es) Dates Sig (Normalized) Sig (Original) [id number] 200 actuat albuterol 0.09 mg/actuat metered dose inhaler (4 sources) beta2-Adrenergic Agonist Start: 03-20-2023 take 2 puff(s) by inhalation every four hours as needed albuterol 90 mcg/actuation inhaler Inhale 2 (two) puffs every 4 (four) hours as needed . 6.7 g 03/20/2023 Active betamethasone 0.0005 mg/mg topical ointment (2 sources) Corticosteroid Start: 01-24-2024 betamethasone dipropionate (Diprosone) 0.05 % ointment Indications: Rash Apply topically 2 times a day. Apply sparingly to affected areas twice daily 15 g 01/24/2024 Active 24 hr buPROPion hydrochloride 300 mg extended release oral tablet (12 sources) Aminoketone Start: 01-16-2023 End: 07-15-2023 take 1 tablet by mouth once daily in the morning buPROPion XL (Wellbutrin XL) 150 mg 24 hr tablet Indications: Depression, major, single episode, mild (CMS/HCC) Take 1 tablet (150 mg) by mouth once daily in the morning. Do not crush, chew, or split. Take with 300mg tablet for total 450mg every day 90 tablet 1 01/16/2023 05/15/2023 Discontinued (Therapy completed) Start: 08-15-2022 End: 01-24-2024 take 1 tablet by mouth once daily in the morning buPROPion XL (Wellbutrin XL) 300 mg 24 hr tablet Indications: Anxiety , Depression, major, single episode, mild (CMS-HCC) Take 1 tablet (300 mg) by mouth once daily in the morning. Do not crush, chew, or split. 90 tablet 1 06/20/2023 Active Start: 07-18-2022 End: 01-14-2023 take 1 tablet by mouth once daily in the morning buPROPion XL (Wellbutrin XL) 150 mg 24 hr tablet Indications: Depression, major, single episode, mild (CMS/HCC) Take 1 tablet (150 mg) by mouth once daily in the morning. Do not crush, chew, or split. 30 tablet 1 07/18/2022 08/15/2022 Discontinued (Therapy completed) busPIRone hydrochloride 5 mg oral tablet (16 sources) Start: 01-24-2024 End: 01-24-2024 take 1 tablet by mouth twice daily busPIRone (BUSPAR) 5 MG tablet Take 1 (one) tablet (5 mg total) by mouth 2 (two) times a day . 01/24/2024 Active Start: 03-23-2022 take 1 tablet by kamla th once daily busPIRone HCl - 5 MG Oral Tablet TAKE 1 TABLET EVERY 12 HOURS DAILY. Quantity: 60 Refills: 1 Ordered: 23-Mar-2022 Yarely GIORDANO Jhon Start : 23-Mar-2022 Active take 1 tablet by kamla th every twelve hours busPIRone (Buspar) 5 mg tablet Take 1 tablet (5 mg) by mouth every 12 hours. Active take 1 tablet by kamla th every twelve hours busPIRone (Buspar) 5 mg tablet Take 1 tablet (5 mg) by mouth in the morning and 1 tablet (5 mg) in the evening. 0 Active cholecalciferol 0.05 mg oral capsule (18 sources) Vitamin D Start: 05-06-2024 take 1 capsule by mouth once daily Cholecalciferol (Vitamin D3) 50 mcg (2,000 unit) capsule Active 50 ug PO daily May 06, 2024 1:00am Start: 03-15-2022 take 1 tablet by kamla th once daily cholecalciferol, vitamin D3, 50 mcg (2,000 unit) Tab Take 1 (one) tablet (2,000 Units total) by mouth daily . 03/15/2022 Active Start: 03-15-2022 End: 11-14-2022 take 1 tablet by mouth once daily cholecalciferol (Vitamin D-3) 50 MCG (2000 UT) tablet Take 1 tablet (50 mcg) by mouth once daily. 0 03/15/2022 11/14/2022 Discontinued (Therapy completed) ergocalciferol 1.25 mg oral capsule (2 sources) Provitamin D2 Compound Start: 06-02-2022 End: 07-28-2022 take 1 capsule by mouth every week ergocalciferol (Vitamin D-2) 1.25 MG (49117 UT) capsule Indications: Vitamin D deficiency Take 1 capsule (50,000 Units) by mouth 1 (one) time per week. 8 capsule 0 06/02/2022 07/28/2022 Active escitalopram 20 mg oral tablet (20 sources) Serotonin Reuptake Inhibitor Start: 02-01-2024 End: 08-12-2024 take 1 tablet by mouth once daily Escitalopram Oxalate (Lexapro) 20 mg tablet Active 20 mg PO daily 90 August 12, 2024 12:14pm Start: 12-14-2023 End: 07-22-2024 take 1 tablet by mouth once daily escitalopram (Lexapro) 10 mg tablet Indications: Anxiety , Depression, major, single episode, mild (CMS-HCC) Take 1 tablet (10 mg) by mouth once daily. 90 tablet 1 01/24/2024 07/22/2024 Active Start: 06-04-2023 End: 12-01-2023 take 1 tablet by mouth once daily escitalopram (Lexapro) 10 mg tablet Indications: Anxiety , Depression, major, single episode, mild (CMS-HCC) Take 1 tablet (10 mg) by mouth once daily. 30 tablet 5 06/04/2023 12/01/2023 Active Start: 12-07-2022 End: 05-20-2023 take 1 tablet by mouth once daily escitalopram (Lexapro) 10 mg tablet Indications: Anxiety , Depression, major, single episode, mild (CMS/HCC) TAKE 1 TABLET BY MOUTH EVERY DAY 90 tablet 1 12/07/2022 05/20/2023 Discontinued (Therapy completed) Start: 06-02-2022 End: 11-29-2022 take 1 tablet by mouth once daily escitalopram (Lexapro) 10 mg tablet Indications: Anxiety , Depression, major, single episode, mild (CMS/HCC) Take 1 tablet (10 mg) by mouth once daily. 30 tablet 5 06/02/2022 11/29/2022 Active hydrOXYzine hydrochloride 25 mg oral tablet (15 sources) Antihistamine Start: 07-25-2018 take 1 tablet by mouth once daily as needed hydrOXYzine (ATARAX) 25 MG tablet Take 1 (one) tablet (25 mg total) by mouth nightly as needed . 07/25/2018 Active multivitamin (THERAGRAN) per tablet (3 sources) take 1 tablet by mouth once daily multivitamin (THERAGRAN) per tablet Take 1 (one) tablet by mouth daily . Active omeprazole 20 mg delayed release oral capsule (7 sources) Proton Pump Inhibitor Start: 05-06-2024 take 1 capsule by mouth once daily Omeprazole 20 mg capsule,delayed release(DR/EC) Active 20 mg PO daily May 06, 2024 1:00am Start: 03-06-2024 End: 04-05-2024 take 1 capsule by mouth once daily before mealtime omeprazole (PriLOSEC) [address] capsule Indications: Nausea and vomiting, unspecified vomiting type Take 1 capsule (40 mg) by mouth once daily in the morning. Take before meals. Do not crush or chew. 30 capsule 03/06/2024 04/05/2024 Active 242-[id number] Ac-Dha 1 EACH combo pack (6 sources) Start: 12-28-2019 take 1 dose by mouth once daily 510-[id number] Ac-Dha 1 EACH combo pack Active 1 NMA PO DAILY December 28, 2019 12:00am promethazine hydrochloride 25 mg oral tablet (1 source) Phenothiazine Start: 03-06-2024 take 1 tablet by mouth every six hours for nausea promethazine (Phenergan) 25 mg tablet Indications: Nausea and vomiting, unspecified vomiting type Take 1 tablet (25 mg) by mouth every 6 hours if needed for nausea or vomiting for up to 12 doses. 12 tablet 03/06/2024 Active Completed/Discontinued Medications Medication Drug Class(es) Dates Sig (Normalized) Sig (Original) ferrous sulfate 325 mg oral tablet (6 sources) Start: 03-15-2022 End: 11-14-2022 take 1 tablet by mouth once ferrous sulfate 325 (65 Fe) MG tablet Take 1 tablet (65 mg of iron) by mouth. Every Sunday, Sunday, and Sunday 0 03/15/2022 11/14/2022 Discontinued (Therapy completed) Start: 03-15-2022 take 1 tablet by mouth once Fe rrous Sulfate 325 (65 Fe) MG Oral Tablet TAKE 1 TABLET every sunday, sunday, sunday Quantity: 30 Refills: 2 Ordered: 15-Mar-2022 Jhon Scott DO Start : 15-Mar-2022 Active iohexol (OMNIPaque) 350 mg iodine/mL solution 67 mL (1 source) Start: 03-06-2024 End: 03-06-2024 67 mL, intravenous, Once in imaging, Starting on Beba 03/06/24 at 1824, For 1 dose lisdexamfetamine dimesylate 20 mg oral capsule (2 sources) Central Nervous System Stimulant Start: 02-07-2022 End: 03-23-2022 take 1 capsule by mouth once daily Vyvanse 20 MG Oral Capsule TAKE 1 CAPSULE Daily Quantity: 7 Refills: 0 Ordered: 09-Mar-2022 Jhon Scott DO Start : 07-Feb-2022 End : 23-Mar-2022 Complete Magnesium (6 sources) Start: 08-04-2020 End: 05-06-2024 Magnesium 500 mg Tablet Discontinued PO August 04, 2020 12:00am May 06, 2024 11:20am oxyCODONE hydrochloride 5 mg oral tablet (6 sources) Opioid Agonist Start: 08-06-2020 End: 05-06-2024 take 1 tablet by mouth every six hours Oxycodone 5 mg Tablet Discontinued 5 mg PO EVERY 6 HOURS 20 5 0 August 06, 2020 May 06, 2024 11:20am Postoperative pain Other acute postprocedural pain Post op phentermine hydrochloride 37.5 mg oral tablet (1 source) Sympathomimetic Amine Anorectic Start: 05-20-2023 End: 06-20-2023 take 40-44.9 tablets by mouth once daily before mealtime phentermine (Adipex-P) 37.5 mg tablet Indications: Class 3 severe obesity due to excess calories with serious comorbidity and body mass index (BMI) of 40.0 to 44.9 in adult (CMS/HCC) Take 1 tablet (37.5 mg) by mouth once daily in the morning. Take before meals. 30 tablet 05/20/2023 06/20/2023 Discontinued (Side effects) sertraline 50 mg oral tablet (20 sources) Serotonin Reuptake Inhibitor Start: 05-22-2022 End: 06-02-2022 take 1 tablet by mouth once daily sertraline (Zoloft) 50 mg tablet Indications: Anxiety , Depression, major, single episode, mild (CMS/HCC) Take 1 tablet (50 mg) by mouth once daily. As directed 30 tablet 2 05/22/2022 06/02/2022 Discontinued (Therapy completed) Start: 01-09-2022 take 1 tablet by kamla th once daily Sertraline HCl - 100 MG Oral Tablet Take 1 tablet daily Quantity: 30 Refills: 1 Ordered: 09-Mar-2022 Jhon Scott DO Start : 09-Jan-2022 Active Start: 08-06-2020 End: 08-06-2020 Sertraline 25 MG tablet Disc ontinued 150 mg PO DAILY 0 1 August 06, 2020 2:54am August 06, 2020 2:55am Check with primary doctor Start: 08-06-2020 End: 05-06-2024 Sertraline (Zoloft) 100 mg t ablet Discontinued 150 mg PO DAILY 45 30 6 August 06, 2020 12:00am May 06, 2024 11:18am Start: 12-28-2019 End: 08-06-2020 take 4 tablets by mouth once daily Sertraline 25 MG tablet Discontinued 100 mg PO DAILY December 28, 2019 12:00am August 06, 2020 2:54am Check with primary doctor Problems Active Problems Problem Classification Problem Date Documented Date Episodic/Chronic Abdominal pain (12 sources) Epigastric pain; Translations: [Epigastric pain] Onset: 04-03-2024 03-10-2024 Episodic Anxiety disorders (20 sources) Anxiety; Translations: [Anxiety state, unspecified] Onset: 05-22-2022 07-18-2022 Chronic Asthma (2 sources) Mild intermittent asthma with (acute) exacerbation; Translations: [Mild intermittent asthma with (acute) exacerbation] Onset: 03-20-2023 Chronic Cardiac dysrhythmias (20 sources) Multiple premature ventricular complexes; Translations: [Ventricular premature depolarization] Onset: 06-30-2024 05-06-2024 Chronic Comment on above: started with COVID i n last Delirium, dementia amnestic and other cognitive disorders (1 source) Postconcussional syndrome; Translations: [Postconcussional syndrome] Onset: 07-04-2017 Chronic Immunizations and screening for infectious disease (2 sources) Patient encounter status; Translations: [Special screening examination for other specified viral diseases] Episodic Comment on above: 03/2022: neg; Mood disorders (20 sources) Mild major depression, single episode; Translations: [Major depressive affective disorder, single episode, mild] Onset: 05-22-2022 07-18-2022 Chronic Nausea and vomiting (10 sources) Nausea and vomiting; Translations: [Nausea with vomiting, unspecified] Onset: 03-06-2024 03-06-2024 Episodic Nutritional deficiencies (19 sources) Vitamin D deficiency; Translations: [Unspecified vitamin D deficiency] Onset: 05-22-2022 06-02-2022 Chronic Other complications of (20 sources) Maternal obesity complicating , childbirth and the puerperium, antepartum; Translations: [Obesity complicating , unspecified trimester] 05-06-2024 Chronic Comment on above: HgbA1c HgbA1c NSTs at 37 we eks Other complications of (1 source) Obesity complicating , unspecified trimester; Translations: [Obesity complicating , unspecified trimester] Onset: 06-30-2024 Chronic Other complications of (20 sources) High risk ; Translations: [Supervision of high risk , unspecified, unspecified trimester] 05-06-2024 Episodic Comment on above: , RICHARD 12/31/24, PC Jennyigh, Bridger PRR, , RICHARD 12/31, PC [place], Bridger PRR, , RICHARD 12/31 Boy, PC Alyssa, Bridger Other complications of (7 sources) Abdominal pain in ; Translations: [Other specified related conditions, unspecified trimester] 06-13-2024 Episodic Other complications of (1 source) Supervision of high risk , unspecified, second trimester; Translations: [Supervision of high risk , unspecified, second trimester] Onset: 09-11-2024 Episodic Other nervous system disorders (6 sources) Postoperative pain ; Translations: [Other acute postprocedural pain] 05-06-2024 Episodic Other nutritional; endocrine; and metabolic disorders (1 source) Localized adiposity; Translations: [Localized adiposity] Onset: 01-31-2021 Chronic Other nutritional; endocrine; and metabolic disorders (5 sources) Morbid (severe) obesity due to excess calories; Translations: [Morbid (severe) obesity due to excess calories] Onset: 01-31-2021 Chronic Other nutritional; endocrine; and metabolic disorders (7 sources) Severe obesity; Translations: [Morbid (severe) obesity due to excess calories] Onset: 05-20-2023 05-15-2023 Chronic Other nutritional; endocrine; and metabolic disorders (4 sources) Body mass index (BMI) 40.0-44.9, adult; Translations: [Body mass index (BMI) 40.0-44.9, adult (Multi)] Onset: 06-20-2023 Chronic Other nutritional; endocrine; and metabolic disorders (1 source) Abnormal weight gain; Translations: [Abnormal weight gain] Onset: 01-31-2021 Episodic Other screening for suspected conditions (not mental disorders or infectious disease) (3 sources) Encounter for screening for lipoid disorders; Translations: [Cancer cervix screening status] Onset: 01-31-2021 Episodic Comment on above: Follows with Dr. Enedina alarcon; Other skin disorders (3 sources) Eruption; Translations: [Rash and other nonspecific skin eruption] Onset: 01-27-2024 01-24-2024 Episodic Other skin disorders (2 sources) Rash and other nonspecific skin eruption; Translations: [Rash and other nonspecific skin eruption] Onset: 01-24-2024 Episodic Substance-related disorders (20 sources) Cannabis abuse; Translations: [Cannabis dependence, in remission] Onset: 06-30-2024 05-06-2024 Chronic Comment on above: last used 03/25/24, e ducation provided, informed of initial tox screen & random testing during Past or Other Problems Problem Classification Problem Date Documented Da te Episodic/Chronic Abdominal hernia (20 sources) Hiatal hernia; Translations: [Diaphragmatic hernia without obstruction or gangrene] Onset: 06-30-2024 05-06-2024 Episodic Comment on above: dx 03/2024, small her emil Diabetes mellitus without complication (12 sources) Hyperglycemia; Translations: [Impaired fasting glucose] Onset: 05-22-2022 Resolved: 09-19-2023 06-02-2022 Episodic Hemorrhage during ; abruptio placenta; placenta previa (20 sources) Vaginal bleeding complicating early ; Translations: [Hemorrhage in early , unspecified] Onset: 05-29-2024 05-20-2024 Episodic Comment on above: repeat US at 28 week s Pelvic rest Nutritional deficiencies (19 sources) Iron deficiency; Translations: [Iron deficiency anemia, unspecified] Onset: 05-22-2022 06-02-2022 Episodic Other complications of (1 source) Supervision of high risk , unspecified, unspecified trimester; Translations: [Supervision of high risk , unspecified, unspecified trimester] Onset: 06-30-2024 Episodic Other complications of (1 source) Other specified related conditions, first trimester; Translations: [Other specified related conditions, first trimester] Onset: 06-18-2024 Episodic Other non-traumatic joint disorders (4 sources) Bilateral wrist pain; Translations: [Pain in right wrist] Onset: 09-19-2023 09-19-2023 Episodic Other nutritional; endocrine; and metabolic disorders (12 sources) Obesity; Translations: [Obesity, unspecified] Onset: 05-22-2022 Resolved: 08-15-2022 05-22-2022 Chronic Other and delivery including normal (20 sources) ; Translations: [Encounter for supervision of normal , unspecified, unspecified trimester] Onset: 06-24-2024 05-06-2024 Episodic Comment on above: discussed NIPT & Car rier testing- Undecided discussed NIPT & Car rier testing- UndecidedNIPT-Low Risk. Rpt US 08/19 to complete anatomy. Residual codes; unclassified (1 source) History of uterine scar from previous surgery; Translations: [History of uterine scar from previous surgery] Onset: 06-30-2024 Episodic Residual codes; unclassified (1 source) 13 weeks gestation of ; Translations: [13 weeks gestation of ] Onset: 06-30-2024 Episodic Residual codes; unclassified (1 source) 11 weeks gestation of ; Translations: [11 weeks gestation of ] Onset: 06-13-2024 Episodic Residual codes; unclassified (1 source) 8 weeks gestation of ; Translations: [8 weeks gestation of ] Onset: 05-23-2024 Episodic Screening and history of mental health and substance abuse codes (20 sources) History of clinical finding in subject; Translations: [Personal history of nicotine dependence] Onset: 06-30-2024 05-06-2024 Episodic Comment on above: Quit 01/11/24 Viral infection (2 sources) Viral infection, unspecified; Translations: [Viral infection, unspecified] Onset: 03-20-2023 Episodic Results Test Name Value Interpretation Reference Range Facility [facility] [employer] [facility] Office Visit Reporton 09-11-2024 Tester [employer] [facility]ak[employer] Office Visit Report [facility] [address], [address] [place] [address] OFFICE VISIT Date of Service: 09/11/24 MR#: [id number] Acct: [id number] Name: RADHA BOONE Rep #: [id number] : 2000 Provider: Dr. Ana Laura briceno MD Age/Sex: 23/F Location: [facility] [place] Status: Signed with Addenda ADDENDUM by Dr. Ana Laura Mercado MD on 09/23/24 at 1541 Assessment and Plan Assessment and Plan (1) Complete placenta previa nos or without hemorrhage, second trimester: Status: Acute Comment: repeat US at 28 weeks Pelvic rest (2) Marijuana smoker in remission: Status: Acute Comment: last used 03/25/24, education provided, informed of initial tox screen random testing during (3) History of nicotine vaping: Status: Acute Comment: Quit 01/11/24 (4) Supervision of high-risk : Status: Acute Qualifiers: Trimester: second trimester Qualified Code(s): O09.92 - Supervision of high risk , unspecified, second trimester Comment: PRR, , RICHARD 12/31/24 Boy, PC Alyssa, Bridger (5) : Status: Acute Qualifiers: Weeks of gestation: 19 weeks Qualified Code(s): Z3A.19 - 19 weeks gestation of Comment: discussed NIPT Carrier testing- Undecided NIPT-Low Risk. Rpt US 08/19 to complete anatomy. (6) Premature ventricular contractions: Status: Acute Comment: started with COVID in last (7) Obesity affecting : Status: Acute Qualifiers: Trimester: second trimester Obesity type affecting : unspecified obesity Qualified Code(s): O99.212 - Obesity complicating , second trimester Comment: HgbA1c NSTs at 37 weeks (8) Hiatal hernia: Status: Acute Comment: dx 03/2024, small hernia (9) Previous section: Status: Acute Comment: plans repeat C/S. RLTCS BS 12/24/24 SM. Orders: Orders CBC W/Diff, Automated 09/11/24 O09.92 - Supervision of high risk , unspecified, second trimester Glucose Challenge Gest 1H 50g 09/11/24 O09.92 - Supervision of high risk , unspecified, second trimester, Z13.1 - Encounter for screening for diabetes mellitus HIV 09/11/24 O09.92 - Supervision of high risk , unspecified, second trimester Syphilis Antibodies 09/11/24 O09.92 - Supervision of high risk , unspecified, second trimester POC Urinalysis 2 Dip (Clinic) 09/11/24 09/23/24 1541 Date Ana Laura Mercado MD cc: * Signed Intake Vital Signs 07/16/24 10:23 08/11/24 10:06 09/11/24 10:43 09/11/24 11:06 Height 5 ft 7 in 5 ft 7 in 5 ft 7 in Weight: 262 lb 4 oz 269 lb BMI 41.1 BP 112/75 112/77 Intake Visit Reasons: 24 wk ob Allergies No Known Allergies Allergy (Verified 08/11/24 10:05) Last Menstrual Period: 03/26/24 : No PFSH PFSH Medical History Seasonal allergies Depression Anxiety Surgical History Previous section [place] teeth extracted Family History Mother Thyroid disorder, Onset Age: 38 Hypothyroid Diabetes GDM with both pregnancies Grandmother Thyroid disorder, Onset Age: 55 Maternal-thyroid nodules benign Diabetes Maternal type 2 Grandmother Diabetes Paternal type 2 Social History adopted: No household members: spouse and children housing: house number of children: 1 current occupational status: unemployed current occupation: [employer] pets and animals: Yes (Avoid litterbox) pets and animals: cat(s) and dog(s) history of recent travel: No sexually active: Yes Smoking Status: Former smoker quit date: 01/11/24 pack-years: 3 Electronic Cigarette Use: with nicotine second hand exposure: No quit status: quit date established alcohol intake: current alcohol intake frequency: holidays/special occasions only details: not while substance use type: former substance user Date of last use: last used 03/25/24 and marijuana well-balanced diet: daily or most days caffeine: Yes Type: coffee Number of servings: 1 eating out: 1-3 times/week during the past year weight has: decreased > 10 lbs what type of physical activity do you participate in: none janet/amish: Mosque seatbelt use: always do you feel safe at home: Yes 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 Date Name GA/Weeks Outcome Route Bth Weight Infant Gen Labor L (more content not included)... Normal [facility] - Chemistry and C hemistry - challengeOrdered By: Matt Ashley on 08-11-2024 Glucose Ql (U) Negative [facility] - UrinalysisOrder ed By: Matt Ashley on 08-11-2024 Protein Ql (U) Negative [facility] [employer] [facility] Office Visit Reporton 08-11-2024 Tester [employer] [facility] Office Visit Report [facility] [address], [address] [place] [address] OFFICE VISIT Date of Service: 08/11/24 MR#: [id number] Acct: [id number] Name: RADHA BOONE Rep #: [id number] : 2000 Provider: WINDY fuentes Age/Sex: 23/F Location: [facility] Status: Signed Intake Vital Signs 07/16/24 10:23 07/21/24 15:23 08/11/24 10:06 Height 5 ft 7 in 5 ft 7 in 5 ft 7 in Weight: 262 lb 4 oz BMI 41.1 BP 112/75 Intake Visit Reasons: 20 wk ob National Sales Director Required: No Is patient in pain?: No Allergies No Known Allergies Allergy (Verified 08/11/24 10:05) Medications ???Medication ???Instructions ???Recorded ???Confirmed ???Type vit no.105-iron 30 1 ea PO DAILY 12/28/19 08/11/24 Hi story mg-folic acid 1.4 mg-dha 300 mg oral pack cholecalciferol (vitamin D3) 50 50 mcg PO QDAY 05/06/24 08/11/24 H istory mcg (2,000 unit) capsule escitalopram oxalate 20 mg tablet 20 mg PO QDAY 05/06/24 08/11/24 H istory (Lexapro) omeprazole 20 mg capsule,delayed 20 mg PO QDAY 05/06/24 08/11/24 Hi story release Last Menstrual Period: 03/26/24 Zika: Zika virus screening: Negative : No PFSH PFSH Medical History Seasonal allergies Depression Anxiety Surgical History Previous section [place] teeth extracted Family History Mother Thyroid disorder, Onset Age: 38 Hypothyroid Diabetes GDM with both pregnancies Grandmother Thyroid disorder, Onset Age: 55 Maternal-thyroid nodules benign Diabetes Maternal type 2 Grandmother Diabetes Paternal type 2 Social History adopted: No household members: spouse and children housing: house number of children: 1 current occupational status: unemployed current occupation: [employer] pets and animals: Yes (Avoid litterbox) pets and animals: cat(s) and dog(s) history of recent travel: No sexually active: Yes Smoking Status: Former smoker quit date: 01/11/24 pack-years: 3 Electronic Cigarette Use: with nicotine second hand exposure: No quit status: quit date established alcohol intake: current alcohol intake frequency: holidays/special occasions only details: not while substance use type: former substance user Date of last use: last used 03/25/24 and marijuana well-balanced diet: daily or most days caffeine: Yes Type: coffee Number of servings: 1 eating out: 1-3 times/week during the past year weight has: decreased > 10 lbs what type of physical activity do you participate in: none janet/amish: Mosque seatbelt use: always do you feel safe at home: Yes 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 Date Name GA/Weeks Outcome Route Bth Weight Gen Labor Lgth Anesthesia Del Locatn Provider FOB 08/06/20 [place] 39 live - full term 8#1oz Female spinal [facility] Dr. Enedina Balbuena Delivery Date: 08/06/20 Last Updated by: Rona Huff meconium decels, prolonged labor HPI 20 wk ob Details: RADHA BOONE is a 23 year old who presents for routine OB visit. OB Visit RICHARD Calculator Estimated Delivery Date Method Current WG Current Estimate 12/31/24 LMP (Certain) 19w 5d Other Estimates 12/30/24 Ultrasound #1 19w 6d Expected Delivery Route/Plan plans repeat C/S Specific Issue/Plans Covid status: [] Flu vaccine: [] Tdap vaccine: [] Rhogam: [] LARC form signed: [] Problem list reviewed and updated with the most current plan of care details and appropriate orders placed. Relevant counseling for the gestational age provided. Continue routine care and follow up unless otherwise noted in visit notes/problem list details Initial Weight: 250 lb Date -???-???-???-???-???- ???-???-???-???-???-? ??-???- EGA Weight BP Urine Prot -???-???-???-???-???- ???-???-???-???-???-? ??-???- Glucose FHR FuHt Pres Dilation -???-???-???-???-???- ???-???-???-???-???-? ??-???- Effaced St Visit Note 05/23/24 -???-???-???-???-???- ???-???-???-???-???-? ??-???- 8w 2d 250 lb (+0 oz) 108/79 -???-???-???-???-???- ???-???-???-???-???-? ??-???- 171 -???-???-???-???-???- ???-???-???-???-???-? ??-???- KW- CRL cons with dates. NIPT accepted. plans to get labs next visit. plans R C/S 06/13/24 -???-???-???-???-???- ???-???-???-???-???-? ??-???- 11w 2d 253 lb (+3 lb) 123/82 Negative (more content not included)... Normal [facility] - Chemistry and C hemistry - challengeOrdered By: Amada Black on 07-21-2024 Glucose Ql (U) Negative [facility] - UrinalysisOrder ed By: Amada Black on 07-21-2024 Protein Ql (U) Negative [facility] [employer] [facility] Office Visit Reporton 07-21-2024 Tester [employer] Office Visit Report [facility] [address], [address] [place] [address] OFFICE VISIT Date of Service: 07/21/24 MR#: [id number] Acct: [id number] Name: RADHA BOONE Rep #: [id number] : 2000 Provider: BUTCH Caldwell ams Age/Sex: 23/F Location: [facility] Status: Signed Intake Vital Signs 07/16/24 10:23 07/21/24 15:23 Height 5 ft 7 in 5 ft 7 in Weight: 254 lb 8 oz BMI 39.8 BP 118/80 Intake Visit Reasons: FHT check Chief Complaint: FHT Check National Sales Director Required: No Is patient in pain?: No Allergies No Known Allergies Allergy (Verified 07/21/24 15:23) Medications ???Medication ???Instructions ???Recorded ???Confirmed ???Type vit no.105-iron 30 1 ea PO DAILY 12/28/19 07/21/24 Hi story mg-folic acid 1.4 mg-dha 300 mg oral pack cholecalciferol (vitamin D3) 50 50 mcg PO QDAY 05/06/24 07/21/24 H istory mcg (2,000 unit) capsule escitalopram oxalate 20 mg tablet 20 mg PO QDAY 05/06/24 07/21/24 H istory (Lexapro) omeprazole 20 mg capsule,delayed 20 mg PO QDAY 05/06/24 07/21/24 Hi story release Last Menstrual Period: 03/26/24 : No PFSH PFSH Medical History Seasonal allergies Depression Anxiety Surgical History Previous section [place] teeth extracted Family History Mother Thyroid disorder, Onset Age: 38 Hypothyroid Diabetes GDM with both pregnancies Grandmother Thyroid disorder, Onset Age: 55 Maternal-thyroid nodules benign Diabetes Maternal type 2 Grandmother Diabetes Paternal type 2 Social History adopted: No household members: spouse and children housing: house number of children: 1 current occupational status: unemployed current occupation: [employer] pets and animals: Yes (Avoid litterbox) pets and animals: cat(s) and dog(s) history of recent travel: No sexually active: Yes Smoking Status: Former smoker quit date: 01/11/24 pack-years: 3 Electronic Cigarette Use: with nicotine second hand exposure: No quit status: quit date established alcohol intake: current alcohol intake frequency: holidays/special occasions only details: not while substance use type: former substance user Date of last use: last used 03/25/24 and marijuana well-balanced diet: daily or most days caffeine: Yes Type: coffee Number of servings: 1 eating out: 1-3 times/week during the past year weight has: decreased > 10 lbs what type of physical activity do you participate in: none janet/amish: Mosque seatbelt use: always do you feel safe at home: Yes 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 Date Name GA/Weeks Outcome Route Bth Weight Infant Gen Labor Lgth Anesthesia Del Locatn Provider [facility] - [facility] 8#1oz Female spinal [facility] Dr. Enedina Balbuena Delivery Date: 08/06/20 Last Updated by: Rona Huff meconium decels, prolonged labor HPI FHT check Details: RADHA BOONE is a 23 year old who presents for routine OB visit. OB Visit RICHARD Calculator Estimated Delivery Date Method Current WG Current Estimate 12/31/24 LMP (Certain) 16w 5d Other Estimates 12/30/24 Ultrasound #1 16w 6d Expected Delivery Route/Plan plans repeat C/S Specific Issue/Plans Covid status: [] Flu vaccine: [] Tdap vaccine: [] Rhogam: [] LARC form signed: [] Problem list reviewed and updated with the most current plan of care details and appropriate orders placed. Relevant counseling for the gestational age provided. Continue routine care and follow up unless otherwise noted in visit notes/problem list details Initial Weight: 250 lb Date -???-???-???-???-???- ???-???-???-???-???-? ??-???- EGA Weight BP Urine Prot -???-???-???-???-???- ???-???-???-???-???-? ??-???- Glucose FHR FuHt Pres Dilation -???-???-???-???-???- ???-???-???-???-???-? ??-???- Effaced St Visit Note 05/23/24 -???-???-???-???-???- ???-???-???-???-???-? ??-???- 8w 2d 250 lb (+0 oz) 108/79 -???-???-???-???-???- ???-???-???-???-???-? ??-???- 171 -???-???-???-???-???- ???-???-???-???-???-? ??-???- KW- CRL cons with dates. NIPT accepted. plans to get labs next visit. plans R C/S 06/13/24 -???-???-???-???-???- ???-???-???-???-???-? ??-???- 11w 2d 253 lb (+3 lb) 123/82 Negative -???-???-???-???-???- ???-???-???-???-???-? ??-? (more content not included)... Normal [facility] - Chemistry and C hemistry - challengeOrdered By: Matt Ashley on 07-16-2024 Glucose Ql (U) Negative [facility] - UrinalysisOrder ed By: Matt Ashley on 07-16-2024 Protein Ql (U) Negative [facility] T[facility] [employer] Office Visit Reporton 07-16-2024 Tester [employer] Dis[employer] Leak[employer] Office Visit Report [facility] [address] [place] [address], [address] [place] [address] OFFICE VISIT Date of Service: 07/16/24 MR#: [id number] Acct: [id number] Name: RADHA BOONE Rep #: [id number] : 2000 Provider: WINDY fuentes Age/Sex: 23/F Location: [facility] [place] Status: Signed Intake Vital Signs 05/23/24 10:49 06/30/24 11:28 07/16/24 10:23 Height 5 ft 7 in 5 ft 7 in 5 ft 7 in Weight: 254 lb 4 oz BMI 39.8 BP 118/72 Intake Visit Reasons: 16 wk ob Chief Complaint: 16 Week OB National Sales Director Required: No Is patient in pain?: No Allergies No Known Allergies Allergy (Verified 07/16/24 10:24) Medications ???Medication ???Instructions ???Recorded ???Confirmed ???Type vit no.105-iron 30 1 ea PO DAILY 12/28/19 07/16/24 Hi story mg-folic acid 1.4 mg-dha 300 mg oral pack cholecalciferol (vitamin D3) 50 50 mcg PO QDAY 05/06/24 07/16/24 H istory mcg (2,000 unit) capsule escitalopram oxalate 20 mg tablet 20 mg PO QDAY 05/06/24 07/16/24 H istory (Lexapro) omeprazole 20 mg capsule,delayed 20 mg PO QDAY 05/06/24 07/16/24 Hi story release Last Menstrual Period: 03/26/24 Zika: Zika virus screening: Negative : No PFSH PFSH Medical History Seasonal allergies Depression Anxiety Surgical History Previous section [place] teeth extracted Family History Mother Thyroid disorder, Onset Age: 38 Hypothyroid Diabetes GDM with both pregnancies Grandmother Thyroid disorder, Onset Age: 55 Maternal-thyroid nodules benign Diabetes Maternal type 2 Grandmother Diabetes Paternal type 2 Social History adopted: No household members: spouse and children housing: house number of children: 1 current occupational status: unemployed current occupation: [employer] pets and animals: Yes (Avoid litterbox) pets and animals: cat(s) and dog(s) history of recent travel: No sexually active: Yes Smoking Status: Former smoker quit date: 01/11/24 pack-years: 3 Electronic Cigarette Use: with nicotine second hand exposure: No quit status: quit date established alcohol intake: current alcohol intake frequency: holidays/special occasions only details: not while substance use type: former substance user Date of last use: last used 03/25/24 and marijuana well-balanced diet: daily or most days caffeine: Yes Type: coffee Number of servings: 1 eating out: 1-3 times/week during the past year weight has: decreased > 10 lbs what type of physical activity do you participate in: none janet/amish: Mosque seatbelt use: always do you feel safe at home: Yes 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 Date Name GA/Weeks Outcome Route Bth Weight Infant Gen Labor Lgth Anesthesia Del Locatn Provider FOB 08/06/20 [place] 39 live - full term 8#1oz Female spinal [facility] Dr. Enedina Balbuena Delivery Date: 08/06/20 Last Updated by: Roan Huff meconium decels, prolonged labor HPI 16 wk ob Details: RADHA BOONE is a 23 year old who presents for routine OB visit. OB Visit RICHARD Calculator Estimated Delivery Date Method Current WG Current Estimate 12/31/24 LMP (Certain) 16w 0d Other Estimates 12/30/24 Ultrasound #1 16w 1d Expected Delivery Route/Plan plans repeat C/S Specific Issue/Plans Covid status: [] Flu vaccine: [] Tdap vaccine: [] Rhogam: [] LARC form signed: [] Problem list reviewed and updated with the most current plan of care details and appropriate orders placed. Relevant counseling for the gestational age provided. Continue routine care and follow up unless otherwise noted in visit notes/problem list details Initial Weight: 250 lb Date -???-???-???-???-???- ???-???-???-???-???-? ??-???- EGA Weight BP Urine Prot -???-???-???-???-???- ???-???-???-???-???-? ??-???- Glucose FHR FuHt Pres Dilation -???-???-???-???-???- ???-???-???-???-???-? ??-???- Effaced St Visit Note 05/23/24 -???-???-???-???-???- ???-???-???-???-???-? ??-???- 8w 2d 250 lb (+0 oz) 108/79 -???-???-???-???-???- ???-???-???-???-???-? ??-???- 171 -???-???-???-???-???- ???-???-???-???-???-? ??-???- KW- CRL cons with dates. NIPT accepted. plans to get labs next visit. plans R C/S 06/13/24 -???-???-???-???-???- ???-???-???-???-???-? ??-???- (more content not included)... Normal [facility] - Chemistry and C hemistry - challengeOrdered By: Amada Black on 06-30-2024 Glucose Ql (U) Negative [facility] - UrinalysisOrder ed By: Amada Black on 06-30-2024 Protein Ql (U) Negative [facility] Tester [employer]ak[employer] Office Visit Reporton 06-30-2024 Tester Waste Disposal Leak[employer] Office Visit Report [facility] [address] [place] [address], [address] [place] [address] OFFICE VISIT Date of Service: 06/30/24 MR#: [id number] Acct: [id number] Name: RADHA BOONE Rep #: [id number] : 2000 Provider: BUTCH Caldwell ams Age/Sex: 23/F Location: [facility] [place] Status: Signed Intake Vital Signs 06/19/24 15:21 06/30/24 11:22 06/30/24 11:28 Height 5 ft 7 in 5 ft 7 in 5 ft 7 in Weight: 253 lb BMI 39.6 BP 128/83 H Intake Visit Reasons: Heartbeat check National Sales Director Required: No Is patient in pain?: No Allergies No Known Allergies Allergy (Verified 06/30/24 11:24) Last Menstrual Period: 03/26/24 Zika: Zika virus screening: Negative : No Have you fallen in the past year?: No PFSH PFSH Medical History Seasonal allergies Depression Anxiety Surgical History Previous section [place] teeth extracted Family History Mother Thyroid disorder, Onset Age: 38 Hypothyroid Diabetes GDM with both pregnancies Grandmother Thyroid disorder, Onset Age: 55 Maternal-thyroid nodules benign Diabetes Maternal type 2 Grandmother Diabetes Paternal type 2 Social History adopted: No household members: spouse and children housing: house number of children: 1 current occupational status: unemployed current occupation: [employer] pets and animals: Yes (Avoid litterbox) pets and animals: cat(s) and dog(s) history of recent travel: No sexually active: Yes Smoking Status: Former smoker quit date: 01/11/24 pack-years: 3 Electronic Cigarette Use: with nicotine second hand exposure: No quit status: quit date established alcohol intake: current alcohol intake frequency: holidays/special occasions only details: not while substance use type: former substance user Date of last use: last used 03/25/24 and marijuana well-balanced diet: daily or most days caffeine: Yes Type: coffee Number of servings: 1 eating out: 1-3 times/week during the past year weight has: decreased > 10 lbs what type of physical activity do you participate in: none janet/amish: Mosque seatbelt use: always do you feel safe at home: Yes 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 Date Name GA/Weeks Outcome Route Bth Weight Gen Labor Lgth Anesthesia Del Locatn Provider FOB 08/06/20 [place] 39 live - full term 8#1oz Female spinal [facility] Dr. Enedina Balbuena Delivery Date: 08/06/20 Last Updated by: Rona Huff meconium decels, prolonged labor HPI Heartbeat check Details: RADHA BOONE is a 23 year old who presents for routine OB visit. OB Visit RICHARD Calculator Estimated Delivery Date Method Current WG Current Estimate 12/31/24 LMP (Certain) 13w 5d Other Estimates 12/30/24 Ultrasound #1 13w 6d Expected Delivery Route/Plan plans repeat C/S Specific Issue/Plans Covid status: [] Flu vaccine: [] Tdap vaccine: [] Rhogam: [] LARC form signed: [] Problem list reviewed and updated with the most current plan of care details and appropriate orders placed. Relevant counseling for the gestational age provided. Continue routine care and follow up unless otherwise noted in visit notes/problem list details Initial Weight: 250 lb Date -???-???-???-???-???- ???-???-???-???-???-? ??-???- EGA Weight BP Urine Prot -???-???-???-???-???- ???-???-???-???-???-? ??-???- Glucose FHR FuHt Pres Dilation -???-???-???-???-???- ???-???-???-???-???-? ??-???- Effaced St Visit Note 05/23/24 -???-???-???-???-???- ???-???-???-???-???-? ??-???- 8w 2d 250 lb (+0 oz) 108/79 -???-???-???-???-???- ???-???-???-???-???-? ??-???- 171 -???-???-???-???-???- ???-???-???-???-???-? ??-???- KW- CRL cons with dates. NIPT accepted. plans to get labs next visit. plans R C/S 06/13/24 -???-???-???-???-???- ???-???-???-???-???-? ??-???- 11w 2d 253 lb (+3 lb) 123/82 Negative -???-???-???-???-???- ???-???-???-???-???-? ??-???- Negative 162 -???-???-???-???-???- ???-???-???-???-???-? ??-???- KW- work in for RLQ pain x 4 days. no fever, vomiting but having increased loose BMs. noticed spotting on and off today. positive Priscilla's point with palpation. to ER for evaluation for appendicitis 06/19/24 -???-???-???-???-???- ???-???-???-???-???-? ??-???- 12w 1d 255 lb 4 oz (+5 lb 4 oz) 128/84 -???-???-???-??? (more content not included)... Normal [facility] Absolute lymphocyte countOrd ered By: Amada Black on 06-19-2024 Lymphocytes Auto (Unsp spec) [#/Vol] 2.12 10*3/uL 0.83-4.51 [facility] Absolute neutrophil countOrd ered By: Amada Black on 06-19-2024 Neutrophils (Bld) [#/Vol] 5.4 10*3/uL 2.0-7.7 [facility] Amphetamine detection with 1 000 ng/mL as cutoffOrdered By: Amada Black on 06-19-2024 Amphetamines Screen method >1000 ng/mL Ql (U) Negative < 200 ng/mL [facility] Amphetamines Screen method > 1000 ng/mL Ql (U)Ordered By: Amada Black on 06-19-2024 Amphetamines Ql (U) Negative <1000 ng/mL [facility] Urine Barbiturates Screen Negative < 200 ng/mL [facility] Automated lymphocyte count a s percentage of total leukocytesOrdered By: Amada Black on 06-19-2024 Lymphocytes/100 WBC Auto (Unsp spec) 25.2 % 19-41 [facility] Basophil percentageOrdered B y: Amada Black on 06-19-2024 Basophils/100 WBC (Bld) 0.4 % 0-1 [facility] CBC W/Diff, Automatedon 06-10 Absolute Lymph 2.12 X10 3/uL Normal 0.83-4.51 [facility] Comment on above: Performed By: #### B TS, L3890.6006, L3890.6301, L509.8002, L100.0100, L509.4006, L501.9985, L3890.6102 ####[facility] [address] [facility] [place], [address] Absolute Neut 5.4 X10 3/uL Normal 2.0-7.7 [facility] Comment on above: Performed By: #### B TS, L3890.6006, L3890.6301, L509.8002, L100.0100, L509.4006, L501.9985, L3890.6102 ####[facility] [address] [place], [address] Basophils/100 WBC (Bld) 0.4 % Normal 0-1 [facility] Comment on above: Performed By: #### B TS, [id number], L3890.6301, L509.8002, L100.0100, L509.4006, L501.9985, L3890.6102 ####[facility] [address] [place], [address] Eosinophils/100 WBC (Bld) 1.5 % Normal 0-5 [facility] Comment on above: Performed By: #### B TS, L3890.6006, L3890.6301, L509.8002, L100.0100, L509.4006, L501.9985, L3890.6102 ####[facility] [address] [place], [address] Erythrocyte distribution width (RBC) [Ratio] 12.9 % Normal 11.6-14.6 [facility] Comment on above: Performed By: #### B TS, L3890.6006, L3890.6301, L509.8002, L100.0100, L509.4006, L501.9985, L3890.6102 ####[facility] [address] [place], [address] Hematocrit (Bld) [Volume fraction] 39.2 % Normal 37-47 [facility] Comment on above: Performed By: #### B TS, L3890.6006, L3890.6301, L509.8002, L100.0100, L509.4006, L501.9985, L3890.6102 ####[facility] [address] [place], [address] Hemoglobin (Bld) [Mass/Vol] 13.4 g/dL Normal 12.0-15.0 [facility] Comment on above: Performed By: #### B TS, L3890.6006, L3890.6301, L509.8002, L100.0100, L509.4006, L501.9985, L3890.6102 ####[facility] [address] [place], [address] IG% 0.400 Normal 0.0-0.9 [facility] Comment on above: Result Comment: IG% - Immature Granulocytes (promyelocytes, myelocytes and metamyelocytes) > 1% indicates that a LEFT SHIFT is Present. Performed By: #### B TS, L3890.6006, L3890.6301, L509.8002, L100.0100, L509.4006, L501.9985, L3890.6102 ####[facility] [address] [place], [address] Lymphocytes/100 WBC (Bld) 25.2 % Normal 19-41 [facility] Comment on above: Performed By: #### B TS, L3890.6006, L3890.6301, L509.8002, L100.0100, L509.4006, L501.9985, L3890.6102 ####[facility] [address] [place], [address] MCH (RBC) [Entitic mass] 29.1 pg Normal 27.0-32.0 [facility] Comment on above: Performed By: #### B TS, L3890.6006, L3890.6301, L509.8002, L100.0100, L509.4006, L501.9985, L3890.6102 ####[facility] [address] [place], [address] MCHC (RBC) [Mass/Vol] 34.2 g/dL Normal 32-36 [facility] Comment on above: Performed By: #### B TS, L3890.6006, L3890.6301, L509.8002, L100.0100, L509.4006, L501.9985, L3890.6102 ####[facility] [address] [place], [address] MCV (RBC) [Entitic vol] 85.0 fL Normal 81-99 [facility] Comment on above: Performed By: #### B TS, L3890.6006, L3890.6301, L509.8002, L100.0100, L509.4006, L501.9985, L3890.6102 ####[facility] [address] [place], [address] Monocytes/100 WBC (Bld) 7.8 % Normal 0-10 [facility] Comment on above: Performed By: #### B TS, L3890.6006, L3890.6301, L509.8002, L100.0100, L509.4006, L501.9985, L3890.6102 ####[facility] [address] [place], [address] Neutrophils/100 WBC (Bld) 64.7 % Normal 47-70 [facility] Comment on above: Performed By: #### B TS, L3890.6006, L3890.6301, L509.8002, L100.0100, L509.4006, L501.9985, L3890.6102 ####[facility] [address] [place], [address] Nucleated RBC (Bld) [#/Vol] 0 10*3/uL Normal 0-5 [facility] Comment on above: Performed By: #### B TS, L3890.6006, L3890.6301, L509.8002, L100.0100, L509.4006, L501.9985, L3890.6102 ####[facility] [address] [place], [address] Platelet mean volume (Bld) [Entitic vol] 9.4 fL Normal 6.2-12.0 [facility] Comment on above: Performed By: #### B TS, L3890.6006, L3890.6301, L509.8002, L100.0100, L509.4006, L501.9985, L3890.6102 ####[facility] [address] [place], [address]( Platelets (Bld) [#/Vol] 266 10*3/uL Normal 150-450 [facility] Comment on above: Performed By: #### B TS, L3890.6006, L3890.6301, L509.8002, L100.0100, L509.4006, L501.9985, L3890.6102 ####[facility] [address] [place], [address](229) RBC (Bld) [#/Vol] 4.61 10*6/uL Normal 4.2-5.4 [facility] Comment on above: Performed By: #### B TS, L3890.6006, L3890.6301, L509.8002, L100.0100, L509.4006, L501.9985, L3890.6102 ####[facility] [address] [place], [address]( RDW SD 39.6 fl Normal 35.1-43.9 [facility] Comment on above: Performed By: #### B TS, L3890.6006, L3890.6301, L509.8002, L100.0100, L509.4006, L501.9985, L3890.6102 ####[facility] [address] [place], [address] WBC (Bld) [#/Vol] 8.4 10*3/uL Normal 4.4-11.0 [facility] Comment on above: Performed By: #### B TS, L3890.6006, L3890.6301, L509.8002, L100.0100, L509.4006, L501.9985, L3890.6102 ####[facility] [address] [place], [address] Eosinophil percentageOrdered By: Amada Black on 06-19-2024 Eosinophils/100 WBC (Bld) 1.5 % 0-5 [facility] Erythrocyte distribution wid th (RBC) [Ratio]Ordered By: Amada Black on 06-19-2024 Erythrocyte distribution width (RBC) [Entitic vol] 39.6 fL 35.1-43.9 [facility] Erythrocyte distribution wid th ratioOrdered By: Amada Black on 06-19-2024 Erythrocyte distribution width (RBC) [Ratio] 12.9 % 11.6-14.6 [facility] Erythrocyte distribution wid th standard deviationOrdered By: Amada Black on 06-19-2024 Erythrocyte distribution width (RBC) [Ratio] 39.6 fl 35.1-43.9 [facility] HBV surface Ag Ql (S)Ordered By: Amada Black on 06-19-2024 Hepatitis B Surface Antigen Non-Reactive Nonreactive [facility] Comment on above: Reactive: Presumptiv e evidence of HBV. Repeatedly reactive samples must be confirmed using a neutralization test ([employer] HBsAg Confirmatory Test)Non-Reactive: HBsAg not detected; does not exclude the possibility of exposure to HBV HIVon 06-19-2024 HIV Non-Reactive Normal Nonreactive [facility] Comment on above: Result Comment: Non- Reactive Reactive Repeatedly reactive samples must be confirmed according to CDC recommended confirmatory algorithms. The subresults for either HIVAG or AHIV can be used as an aid in the selection of the confirmation algorithm for reactive samples. Send out specimens with Reactive results to [facility] for confirmation. Order the HIV antibody detection and differentiation: lc#[id number] Performed By: #### B TS, L3890.6006, L3890.6301, L509.8002, L100.0100, L509.4006, L501.9985, L3890.6102 ####[facility] [address] [place], [place], [address] Hematocrit Auto (Bld) [Volum e fraction]Ordered By: Amada Black on 06-19-2024 Hematocrit (Bld) [Volume fraction] 39.2 % 37-47 [facility] Hemoglobin A1con 06-19-2024 HbA1c (Bld) [Mass fraction] 5.0 % Low <=5.6 [facility] Comment on above: Performed By: #### B TS, L3890.6006, L3890.6301, L509.8002, L100.0100, L509.4006, L501.9985, L3890.6102 ####[facility] [address] [place], [place], [id number] Hemoglobin A1c percentageOrd ered By: Amada Black on 06-19-2024 HbA1c (Bld) [Mass fraction] 5.0 % Low >5.7 [facility] Hemoglobin measurementOrdere d By: Amada Black on 06-19-2024 Hemoglobin (Bld) [Mass/Vol] 13.4 g/dL 12.0-15.0 [facility] Hepatitis C Antibodyon 06-19 Hepatitis C Ab Non-Reactive Normal Nonreactive [facility] Comment on above: Result Comment: Reac tive: Presumptive evidence of antibodies to HCV. Follow CDC recommendations for supplemental testing. Non-Reactive: Antibodies to HCV were not detected; does not exclude the possibility of exposure to HCV Reactive Results are presumptive evidence of antibodies to HCV. Follow CDC recommendations for supplemental testing. Order confirmation testing: HCV Quant by PCR testing - HCVPCR #[id number] Non Reactive: < 0.8 Equivocal: >/= 0.8 to < 1.0 Reactive: >/= 1.0 The CDC requires that a reactive/equivocal HCV antibody result be sent out for confirmation. HCV Quant by PCR testing. Performed By: #### B TS, L3890.6006, L3890.6301, L509.8002, L100.0100, L509.4006, L501.9985, L3890.6102 ####[facility] [address] [place], [place], [id number] Hepatitis C antibodyOrdered By: Amada Black on 06-19-2024 Hepatitis C Antibody Non-Reactive Nonreactive [facility] Comment on above: Reactive: Presumptiv e evidence of antibodies to HCV. Follow CDC recommendations for supplemental testing.Non-Reactive: Antibodies to HCV were not detected; does not exclude the possibility of exposure to HCVReactive Results are presumptive evidence of antibodies to HCV. Follow CDC recommendations for supplemental testing.Order confirmation testing: HCV Quant by PCR testing - HCVPCR lc#[id number] Non Reactive: < 0.8 Equivocal: >/= 0.8 to < 1.0 Reactive: >/= 1.0The CDC requires that a reactive/equivocal HCV antibody result be sent out for confirmation. HCV Quant by PCR testing. Immature granulocytes/100 WB C Auto (Bld)Ordered By: Amada Black on 06-19-2024 Immature granulocytes/100 WBC (Bld) 0.400 % 0.0-0.9 [facility] Comment on above: IG% - Immature Granu locytes (promyelocytes, myelocytes and metamyelocytes) > 1% indicates that a LEFT SHIFT is Present. L3890.6102on 06-19-2024 HEP B Surf Ag Non-Reactive Normal Nonreactive [facility] Comment on above: Result Comment: Reac tive: Presumptive evidence of HBV. Repeatedly reactive samples must be confirmed using a neutralization test ([employer] HBsAg Confirmatory Test) Non-Reactive: HBsAg not detected; does not exclude the possibility of exposure to HBV Performed By: #### B TS, L3890.6006, L3890.6301, L509.8002, L100.0100, L509.4006, L501.9985, L3890.6102 ####[facility] [address] [place], [address] L509.4006on 06-19-2024 Rubella IgG REAC [facility] Comment on above: Result Comment: Anti body Result: Interpretation Non-Reactive: Non-Immune Reactive: Immune The following results were obtained with the [employer] Rubella IgG assay. Results from assays of other manufacturers cannot be used interchangeably. Performed By: #### B TS, L3890.6006, L3890.6301, L509.8002, L100.0100, L509.4006, L501.9985, L3890.6102 ####[facility] [address] [place], [address] Laboratory - Microbiology an d Antimicrobial susceptibilityOrdered By: Amada Black on 06-19-2024 HBV surface Ag Ql (S) Non-Reactive Nonreactive [facility] Comment on above: Reactive: Presumptiv e evidence of HBV. Repeatedly reactive samples must be confirmed using a neutralization test ([employer] HBsAg Confirmatory Test)Non-Reactive: HBsAg not detected; does not exclude the possibility of exposure to HBV Lymphocytes Auto (Unsp spec) [#/Vol]Ordered By: Amada Black on 06-19-2024 Lymphocytes (Bld) [#/Vol] 2.12 10*3/uL 0.83-4.51 [facility] Lymphocytes/100 WBC Auto (Un sp spec)Ordered By: Amada Black on 06-19-2024 Lymphocytes/100 WBC (Bld) 25.2 % 19-41 [facility] MCV (mean corpuscular volume ) determinationOrdered By: Amada Black on 06-19-2024 MCV (RBC) [Entitic vol] 85.0 fL 81-99 [facility] Mean corpuscular hemoglobin (MCH) determinationOrdered By: Amada Black on 06-19-2024 MCH (RBC) [Entitic mass] 29.1 pg 27.0-32.0 [facility] Mean corpuscular hemoglobin concentration (MCHC) determinationOrdered By: Amada Black on 06-19-2024 MCHC (RBC) [Mass/Vol] 34.2 g/dL 32-36 [facility] Mean platelet volume determi nationOrdered By: Amada Black on 06-19-2024 Platelet mean volume (Bld) [Entitic vol] 9.4 fL 6.2-12.0 [facility] Methadone, urineOrdered By: Amada Black on 06-19-2024 Urine Methadone Screen Negative < 300 ng/mL [facility] Miscellaneous procedureOrder ed By: Elissa Quintanilla on 06-19-2024 Miscellaneous Test Comment SEE SCANNED REPORT [facility] Monocyte percentageOrdered B y: Amada Black on 06-19-2024 Monocytes/100 WBC (Bld) 7.8 % 0-10 [facility] NATERAon 06-19-2024 NATURA SEE SCANNED REPORT Normal [facility] Comment on above: Performed By: #### L 900.0098 ####[facility] [address] [place], [address] Neutrophil percentageOrdered By: Amada Black on 06-19-2024 Neutrophils/100 WBC (Bld) 64.7 % 47-70 [facility] No Panel InformationOrdered By: Amada Black on 06-19-2024 Urine Buprenorphine Qualitative Negative < 200 ng/mL [facility] Urine Oxycodone Screen Negative < 100 ng/mL [facility] HIV (1&2) Antibody Non-Reactive Nonreactive [facility] Comment on above: Non-ReactiveReactive Repeatedly reactive samples must be confirmed according to CDC recommended confirmatory algorithms. The subresults for either HIVAG or AHIV can be used as an aid in the selection of the confirmation algorithm for reactive samples.Send out specimens with Reactive results to [facility] for confirmation.Order the HIV antibody detection and differentiation: #[id number] Nucleated red blood cell per centageOrdered By: Amada Black on 06-19-2024 Nucleated RBC/100 WBC (Bld) [Ratio] 0 % 0-5 [facility] [employer] Office Visit Reporton 06-19-2024 [employer]ak[employer] Office Visit Report [facility]'[address], [address] [place] [address] OFFICE VISIT Date of Service: 06/19/24 MR#: [id number] Acct: [id number] Name: RADHA BOONE Rep #: [id number] : 2000 Provider: Dr. 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 Is patient in pain?: No Allergies No Known Allergies Allergy (Verified 06/19/24 15:19) Medications ???Medication ???Instructions ???Recorded ???Confirmed ???Type vit no.105-iron 30 1 ea PO DAILY 12/28/19 06/19/24 Hi story mg-folic acid 1.4 mg-dha 300 mg oral pack cholecalciferol (vitamin D3) 50 50 mcg PO QDAY 05/06/24 06/19/24 H istory mcg (2,000 unit) capsule escitalopram oxalate 20 mg tablet 20 mg PO QDAY 05/06/24 06/19/24 H istory (Lexapro) omeprazole 20 mg capsule,delayed 20 mg PO QDAY 05/06/24 06/19/24 Hi story release Last Menstrual Period: 03/26/24 Zika: Zika virus screening: Negative : No PFSH PFSH Medical History Seasonal allergies Depression Anxiety Surgical History Previous section [place] teeth extracted Family History Mother Thyroid disorder, Onset Age: 38 Hypothyroid Diabetes GDM with both pregnancies Grandmother Thyroid disorder, Onset Age: 55 Maternal-thyroid nodules benign Diabetes Maternal type 2 Grandmother Diabetes Paternal type 2 Social History adopted: No household members: spouse and children housing: house number of children: 1 current occupational status: unemployed current occupation: [employer] pets and animals: Yes (Avoid litterbox) pets and animals: cat(s) and dog(s) history of recent travel: No sexually active: Yes Smoking Status: Former smoker quit date: 01/11/24 pack-years: 3 Electronic Cigarette Use: with nicotine second hand exposure: No quit status: quit date established alcohol intake: current alcohol intake frequency: holidays/special occasions only details: not while substance use type: former substance user Date of last use: last used 03/25/24 and marijuana well-balanced diet: daily or most days caffeine: Yes Type: coffee Number of servings: 1 eating out: 1-3 times/week during the past year weight has: decreased > 10 lbs what type of physical activity do you participate in: none janet/amish: Mosque seatbelt use: always do you feel safe at home: Yes 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 Date Name GA/Weeks Outcome Route Bth Weight Infant Gen Labor Lgth Anesthesia Del Locatn Provider FOB 08/06/20 Novaleigh 39 live - full term 8#1oz Female spinal [facility] Dr. Enedina Balbuena Delivery Date: 08/06/20 Last Updated by: Rona Huff meconium decels, prolonged labor HPI 12 wk OB Details: RADHA BOONE is a 23 year old who presents for routine OB visit. OB Visit RICHARD Calculator Estimated Delivery Date Method Current WG Current Estimate 12/31/24 LMP (Certain) 12w 1d Other Estimates 12/30/24 Ultrasound #1 12w 2d Expected Delivery Route/Plan plans repeat C/S Specific Issue/Plans Covid status: [] Flu vaccine: [] Tdap vaccine: [] Rhogam: [] LARC form signed: [] Problem list reviewed and updated with the most current plan of care details and appropriate orders placed. Relevant counseling for the gestational age provided. Continue routine care and follow up unless otherwise noted in visit notes/problem list details Initial Weight: 250 lb Date -???-???-???-???-???- ???-???-???-???-???-? ??-???- EGA Weight BP Urine Prot -???-???-???-???-???- ???-???-???-???-???-? ??-???- Glucose FHR FuHt Pres Dilation -???-???-???-???-???- ???-???-???-???-???-? ??-???- Effaced St Visit Note 05/23/24 -???-???-???-???-???- ???-???-???-???-???-? ??-???- 8w 2d 250 lb (+0 oz) 108/79 -???-???-???-???-???- ???-???-???-???-???-? ??-???- 171 -???-???-???-???-???- ???-???-???-???-???-? ??-???- KW- CRL cons with dates. NIPT accepted. plans to get labs next visit. plans R C/S 06/13/24 -???-???-???-???-???- ???-???-???-???-???-? ??-???- 11w 2d 253 lb (+3 l (more content not included)... Normal [facility] Platelet countOrdered By: Thien Black on 06-19-2024 Platelets (Bld) [#/Vol] 266 10*3/uL 150-450 [facility] Quantitative urine opiates m easurementOrdered By: Amada Black on 06-19-2024 Opiates Ql (U) Negative < 300 ng/mL [facility] RBC Auto (Bld) [#/Vol]Ordere d By: Amada Black on 06-19-2024 RBC (Bld) [#/Vol] 4.61 10*6/uL 4.2-5.4 [facility] Rubella immune status determ ination by IgG antibody assayOrdered By: Amada Black on 06-19-2024 Rubella IgG Antibody REAC Nonreactive [facility] Comment on above: Antibody Result: Int erpretationNon-Reactive: Non-ImmuneReactive: ImmuneThe following results were obtained with the [employer] Rubella IgG assay. Results from assays of other manufacturers cannot be used interchangeably. Screening urine fentanyl rodrigue surementOrdered By: Amada Black on 06-19-2024 fentaNYL Screen Ql (U) Negative [facility] Syphilis Antibodieson 2024 Syphilis Abs Non-Reactive Normal Nonreactive [facility] Comment on above: Performed By: #### B TS, L3890.6006, L3890.6301, L509.8002, L100.0100, L509.4006, L501.9985, L3890.6102 ####[facility] [address] [place], [address] T. pallidum abOrdered By: Thien Black on 06-19-2024 Syphilis Total Antibody Non-Reactive Nonreactiv e [facility] Type AND Screenon 06-19-2024 ABO and Rh group Nom (Bld) Blood group B Rh(D) positive Normal [facility] Comment on above: Order Comment: PN Performed By: #### B TS, L3890.6006, L3890.6301, L509.8002, L100.0100, L509.4006, L501.9985, L3890.6102 ####[facility] [address] [place], [address] Urine Drug Screen (VISTA)on 06-19-2024 AMPHETAMINES Negative Normal <1000 ng/mL [facility] Comment on above: Order Comment: UNK Performed By: #### L 505.5000 ####[facility] [address] [place], [address] BARBITIURATES Negative Normal < 200 ng/mL [facility] Comment on above: Order Comment: UNK Performed By: #### L 505.5000 ####[facility] [address] [place], [address] BENZODIAZIPINE Negative Normal < 200 ng/mL [facility] Comment on above: Order Comment: UNK Performed By: #### L 505.5000 ####[facility] [address] [place], [address] BUP Ur Drug Scr Negative Normal < 200 ng/mL [facility] Comment on above: Order Comment: UNK Performed By: #### L 505.5000 ####[facility] [address] [place], [address] COCAINE Negative Normal < 300 ng/mL [facility] Comment on above: Order Comment: UNK Performed By: #### L 505.5000 ####[facility] [address] [facility] [address] Fentanyl Negative Normal [facility] Comment on above: Order Comment: UNK Performed By: #### L 505.5000 ####[facility] [address] [facility] [address] METHADONE Negative Normal < 300 ng/mL [facility] Comment on above: Order Comment: UNK Performed By: #### L 505.5000 ####[facility] [address] [facility] [address] OPIATES Negative Normal < 300 ng/mL [facility] Comment on above: Order Comment: UNK Performed By: #### L 505.5000 ####[facility] [address] [facility] [address] OXYCODONE Negative Normal < 100 ng/mL [facility] Comment on above: Order Comment: UNK Performed By: #### L 505.5000 ####[facility] [address] [facility] [address] PCP Negative Normal < 25 ng/mL [facility] Comment on above: Order Comment: UNK Performed By: #### L 505.5000 ####[facility] [address] [facility] [address] THC Positive Normal < 50 ng/mL [facility] Comment on above: Order Comment: UNK Result Comment: If c onfirmation testing is needed, a separate order will be required to send out testing to the reference laboratory. Performed By: #### L 505.5000 ####[facility] [address] [facility] [address] Urine benzodiazepine levelOr dered By: Amada Black on 06-19-2024 Benzodiazepines Ql (U) Negative < 200 ng/mL [facility] Urine cocaine levelOrdered B y: Amada Black on 06-19-2024 Cocaine Ql (U) Negative < 300 ng/mL [facility] Urine gxvgt-3-cjtrbgbrcdlzqm abinol (THC) measurementOrdered By: Amada Black on 06-19-2024 Cannabinoids Screen Ql (U) Positive < 50 ng/mL [facility] Comment on above: If confirmation test ing is needed, a separate order will be required to send out testing to the reference laboratory. Urine phencyclidine (PCP) de tectionOrdered By: Amada Black on 06-19-2024 Phencyclidine Ql (U) Negative < 25 ng/mL [facility] White blood cell (WBC) count Ordered By: Amada Black on 06-19-2024 WBC (Bld) [#/Vol] 8.4 10*3/uL 4.4-11.0 [facility] fentaNYL Screen Ql (U)Ordere d By: Amada Black on 06-19-2024 Urine Fentanyl Screen Negative [facility] Absolute lymphocyte countOrd ered By: Rubens Escudero on 06-13-2024 Lymphocytes Auto (Unsp spec) [#/Vol] 2.25 10*3/uL 0.83-4.51 [facility] Absolute neutrophil countOrd ered By: Rubens Escudero on 06-13-2024 Neutrophils (Bld) [#/Vol] 5.7 10*3/uL 2.0-7.7 [facility] Amorphous sediment detection in urine sediment by light microscopyOrdered By: Rubens Escudero on 06-13-2024 Amorphous sediment LM Ql (Urine sed) 1+ URATE [facility] Anion gap in Serum or Plasma Ordered By: Rubens Escudero on 06-13-2024 Anion gap [Moles/Vol] 12 mmol/L 5-15 [facility] Automated lymphocyte count a s percentage of total leukocytesOrdered By: Rubens Escudero on 06-13-2024 Lymphocytes/100 WBC Auto (Unsp spec) 25.9 % 19-41 [facility] BUN/creatinine ratioOrdered By: Rubens Escudero on 06-13-2024 Urea nitrogen/Creatinine [Mass ratio] 10.0 mg/mg 10-20 [facility] Basic Metabolic Profile (BMP )on 06-13-2024 BUN/CRE 10.0 RATIO Normal -20 [facility] Comment on above: Performed By: #### L 500.2500, L100.0100 ####[facility] [address] [place], [address] Calcium [Mass/Vol] 9.2 mg/dL Normal 7.6-11.0 [facility] Comment on above: Performed By: #### L 500.2500, L100.0100 ####[facility] [address] [place], [address] Chloride [Moles/Vol] 104 mmol/L Normal 98-108 [facility] Comment on above: Performed By: #### L 500.2500, L100.0100 ####[facility] [address] [place], [address] CO2 [Moles/Vol] 21.8 mmol/L Normal 21.0-32.0 [facility] Comment on above: Performed By: #### L 500.2500, L100.0100 ####[facility] [address] [place], [address] Creatinine [Mass/Vol] 0.58 mg/dL Low 0.70-1.20 [facility] Comment on above: Performed By: #### L 500.2500, L100.0100 ####[facility] [address] [place], [address] ECRCL 194.36 ml/min Normal 50-250 [facility] Comment on above: Performed By: #### L 500.2500, L100.0100 ####[facility] [address] [place], [address] GAP 12 Normal 5-15 [facility] Comment on above: Performed By: #### L 500.2500, L100.0100 ####[facility] [address] [place], [address] GFR/1.73 sq M.predicted among non-blacks MDRD (S/P/Bld) [Vol rate/Area] 130 mL/min/{1.73_m2} Normal >60 [facility] Comment on above: Result Comment: mL/m in/1.73m2 CKD-EPI Creatinine Equation (2020) Performed By: #### L 500.2500, L100.0100 ####[facility] [address] [place], [address] Glucose [Mass/Vol] 96 mg/dL Normal 70-99 [facility] Comment on above: Performed By: #### L 500.2500, L100.0100 ####[facility] [address] [place], [address] Potassium [Moles/Vol] 3.9 mmol/L Normal 3.3-5.1 [facility] Comment on above: Performed By: #### L 500.2500, L100.0100 ####[facility] [address] [place], [address] Sodium [Moles/Vol] 137 mmol/L Normal 133-145 [facility] Comment on above: Performed By: #### L 500.2500, L100.0100 ####[facility] [address] [place], [address] Urea nitrogen [Mass/Vol] 6 mg/dL Normal 4-19 [facility] Comment on above: Performed By: #### L 500.2500, L100.0100 ####[facility] [address] [place], [address] Basophil percentageOrdered B y: Rubens Escudero on 06-13-2024 Basophils/100 WBC (Bld) 0.3 % 0-1 [facility] Bilirubin Test strip Ql (U)O rdered By: Rubens Escudero on 06-13-2024 Bilirubin Ql (U) Negative Negative [facility] CBC W/Diff, Automatedon Absolute Lymph 2.25 X10 3/uL Normal 0.83-4.51 [facility] Comment on above: Performed By: #### L 500.2500, L100.0100 ####[facility] [address] [place], [address] Absolute Neut 5.7 X10 3/uL Normal 2.0-7.7 [facility] Comment on above: Performed By: #### L 500.2500, L100.0100 ####[facility] [address] [place], [address] Basophils/100 WBC (Bld) 0.3 % Normal 0-1 [facility] Comment on above: Performed By: #### L 500.2500, L100.0100 ####[facility] [address] [place], [address] Eosinophils/100 WBC (Bld) 2.0 % Normal 0-5 [facility] Comment on above: Performed By: #### L 500.2500, L100.0100 ####[facility] [address] [place], [address] Erythrocyte distribution width (RBC) [Ratio] 13.1 % Normal 11.6-14.6 [facility] Comment on above: Performed By: #### L 500.2500, L100.0100 ####[facility] [address] [place], [address] Hematocrit (Bld) [Volume fraction] 37.8 % Normal 37-47 [facility] Comment on above: Performed By: #### L 500.2500, L100.0100 ####[facility] [address] [place], [address] Hemoglobin (Bld) [Mass/Vol] 13.3 g/dL Normal 12.0-15.0 [facility] Comment on above: Performed By: #### L 500.2500, L100.0100 ####[facility] [address] [place], [address] IG% 0.200 Normal 0.0-0.9 [facility] Comment on above: Result Comment: IG% - Immature Granulocytes (promyelocytes, myelocytes and metamyelocytes) > 1% indicates that a LEFT SHIFT is Present. Performed By: #### L 500.2500, L100.0100 ####[facility] [address] [place], [address] Lymphocytes/100 WBC (Bld) 25.9 % Normal 19-41 [facility] Comment on above: Performed By: #### L 500.2500, L100.0100 ####[facility] [address] [place], [address] MCH (RBC) [Entitic mass] 29.5 pg Normal 27.0-32.0 [facility] Comment on above: Performed By: #### L 500.2500, L100.0100 ####[facility] [address] [place], [address] MCHC (RBC) [Mass/Vol] 35.2 g/dL Normal 32-36 [facility] Comment on above: Performed By: #### L 500.2500, L100.0100 ####[facility] [address] [place], [address] MCV (RBC) [Entitic vol] 83.8 fL Normal 81-99 [facility] Comment on above: Performed By: #### L 500.2500, L100.0100 ####[facility] [address] [place], [address] Monocytes/100 WBC (Bld) 5.4 % Normal 0-10 [facility] Comment on above: Performed By: #### L 500.2500, L100.0100 ####[facility] [address] [place], [address] Neutrophils/100 WBC (Bld) 66.2 % Normal 47-70 [facility] Comment on above: Performed By: #### L 500.2500, L100.0100 ####[facility] [address] [place], [address] Nucleated RBC (Bld) [#/Vol] 0 10*3/uL Normal 0-5 [facility] Comment on above: Performed By: #### L 500.2500, L100.0100 ####[facility] [address] [place], [address] Platelet mean volume (Bld) [Entitic vol] 9.2 fL Normal 6.2-12.0 [facility] Comment on above: Performed By: #### L 500.2500, L100.0100 ####[facility] [address] [place], [address] Platelets (Bld) [#/Vol] 257 10*3/uL Normal 150-450 [facility] Comment on above: Performed By: #### L 500.2500, L100.0100 ####[facility] [address] [place], [address] RBC (Bld) [#/Vol] 4.51 10*6/uL Normal 4.2-5.4 [facility] Comment on above: Performed By: #### L 500.2500, L100.0100 ####[facility] [address] [place], [address] RDW SD 39.9 fl Normal 35.1-43.9 [facility] Comment on above: Performed By: #### L 500.2500, L100.0100 ####[facility] [address] [place], [address] WBC (Bld) [#/Vol] 8.7 10*3/uL Normal 4.4-11.0 [facility] Comment on above: Performed By: #### L 500.2500, L100.0100 ####[facility] [address] [place], [address] Carbon dioxide, total [Moles /volume] in Central venous bloodOrdered By: Rubens Escudero on 06-13-2024 CO2 [Moles/Vol] 21.8 mmol/L 21.0-32.0 [facility] Chloride assayOrdered By: Arturo Escudero on 06-13-2024 Chloride [Moles/Vol] 104 mmol/L 98-108 [facility] Emergency Department Summary on 06-13-2024 Emergency Department Summary [facility] Medical Records Department [address] [place] [address] Emergency Department Summary 06/13/24 MR#: [id number] Acct: [id number] Name: RADHA BOONE Rep #: [id number] : 2000 23 From: Rubens Escudero MD PCP: JHON SCOTT DO Status:REG ER Location: ED HPI HPI - GI History of Present Illness Chief Complaint: Abd Pain Informant: patient Narrative Narrative: 23-year-old female 11 weeks sent over by OB because of tenderness in right lower quadrant and pain that she has had off-and-on for the past 4 days, concern for possible appendicitis. They did an ultrasound in the office showed that the baby looked good. She has a subchorionic hemorrhage. Patient states that she had bleeding when she was 8 weeks along for couple days, which is when she was diagnosed with a subchorionic hemorrhage. She has had no bleeding since then until today when she started spotting. She states the pain has been intermittent. She states for the most part it has been brief, where she will suddenly feel a sharp pain in her right lower quadrant and then it will go away less than a minute. This is been occurring multiple times during the day. She been nauseated throughout her , no vomiting, that has not changed recently. No changes in her appetite in last 4 to 5 days, she states she takes small amounts of food frequently throughout the day because it keeps her nausea controlled and it is not changed. Denies any pain into the flank or the back. No history of kidney stones but states her mom has a strong history of them. She states she has urinary frequency for the past several weeks that she attributes to , no changes in that no dysuria or hematuria. [facility] Medical History Seasonal allergies Depression Anxiety Home Medications ???Medication ???Instructions ???Recorded ???Last Taken ???Type vit no.105-iron 30 1 ea PO DAILY 12/28/19 08/03/20 Hi story mg-folic acid 1.4 mg-dha 300 mg oral pack cholecalciferol (vitamin D3) 50 50 mcg PO QDAY 05/06/24 Unknown Hi story mcg (2,000 unit) capsule escitalopram oxalate 20 mg tablet 20 mg PO QDAY 05/06/24 Unknown Hi story (Lexapro) omeprazole 20 mg capsule,delayed 20 mg PO QDAY 05/06/24 Unknown His tory release Allergy/AdvReac Type Severity Reaction Status Date / Time No Known Allergies Allergy Verified 06/13/24 16:24 Family History Mother Thyroid disorder, Onset Age: 38 Hypothyroid Diabetes GDM with both pregnancies Grandmother Thyroid disorder, Onset Age: 55 Maternal-thyroid nodules benign Diabetes Maternal type 2 Grandmother Diabetes Paternal type 2 Surgical History Previous section [place] teeth extracted Social History adopted: No household members: spouse and children housing: house number of children: 1 current occupational status: unemployed current occupation: [employer] pets and animals: Yes (Avoid litterbox) pets and animals: cat(s) and dog(s) history of recent travel: No sexually active: Yes Smoking Status: Former smoker quit date: 01/11/24 pack-years: 3 Electronic Cigarette Use: with nicotine second hand exposure: No quit status: quit date established alcohol intake: current alcohol intake frequency: holidays/special occasions only details: not while substance use type: former substance user Date of last use: last used 03/25/24 and marijuana well-balanced diet: daily or most days caffeine: Yes Type: coffee Number of servings: 1 eating out: 1-3 times/week during the past year weight has: decreased > 10 lbs what type of physical activity do you participate in: none janet/amish: Mosque seatbelt use: always do you feel safe at home: Yes 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 Constitutional Constitutional ED: Denies chills or fever(s) Eyes Eyes: Denies change in vision or diplopia ENT ENT ED: Denies rhinorrhea or sore throat Cardiovascular Cardiovascular: Denies chest pain or palpitations Respiratory/Chest Respiratory/Chest: Denies cough or dyspnea Gastrointestinal Gastrointestinal: Reports abdominal pain and nausea; Denies diarrhea or vomiting Genitourinary Genitourinary ED: Reports as per HPI and urinary frequency; Denies dysuria or hematuria Musculoskeletal Musculoskeletal: Denies back pain or neck pain Integumentary Denies abscess or rash Neurologic Neurologic: Denies headache(s), paresthesias or weakness Psychiatric Psychiatric: Denies anxiety or suicidal thoughts EXAM Physical Exam Const Vital Signs: 06/13/24 16 (more content not included)... Normal [facility] Eosinophil percentageOrdered By: Rubens Escudero on 06-13-2024 Eosinophils/100 WBC (Bld) 2.0 % 0-5 [facility] Epithelial cells.squamous LM Ql (Urine sed)Ordered By: Rubens Escudero on 06-13-2024 Epithelial cells.squamous LM.HPF (Urine sed) [#/Area] 0 /[HPF] 5-10 [facility] Erythrocyte distribution wid th (RBC) [Ratio]Ordered By: Rubens Escudero on 06-13-2024 Erythrocyte distribution width (RBC) [Entitic vol] 39.9 fL 35.1-43.9 [facility] Erythrocyte distribution wid th ratioOrdered By: Rubens Escudero on 06-13-2024 Erythrocyte distribution width (RBC) [Ratio] 13.1 % 11.6-14.6 [facility] Erythrocyte distribution wid th standard deviationOrdered By: Rubens Escudero on 06-13-2024 Erythrocyte distribution width (RBC) [Ratio] 39.9 fl 35.1-43.9 [facility] Estimation of creatinine ana aranceOrdered By: Rubens Escudero on 06-13-2024 Estimated Creatinine Clearance Calc 194.36 ml/min 50-250 [facility] GFR/1.73 sq M.predicted ab g non-blacks MDRD (S/P/Bld) [Vol rate/Area]Ordered By: Rubens Escudero on 06-13-2024 Estimated GFR (MDRD) Non-Af Amer 130 >60 [facility] Comment on above: mL/min/1.73m2 CKD-EP I Creatinine Equation (2020) Glomerular filtration rate ( GFR) estimation/1.73 sq m using serum, plasma, or whole bOrdered By: Rubens Escudero on 06-13-2024 GFR/1.73 sq M.predicted among non-blacks MDRD (S/P/Bld) [Vol rate/Area] 130 mL/min/{1.73_m2} >60 [facility] Comment on above: mL/min/1.73m2 CKD-EP I Creatinine Equation (2020) Glucose Ql (U)Ordered By: Arturo Escudero on 06-13-2024 Urine Glucose (UA) Normal mg/dl Normal [facility] Hematocrit Auto (Bld) [Volum e fraction]Ordered By: Rubens Escudero on 06-13-2024 Hematocrit (Bld) [Volume fraction] 37.8 % 37-47 [facility] Hemoglobin measurementOrdere d By: Rubens Escudero on 06-13-2024 Hemoglobin (Bld) [Mass/Vol] 13.3 g/dL 12.0-15.0 [facility] Immature granulocytes/100 WB C Auto (Bld)Ordered By: Rubens Escudero on 06-13-2024 Immature granulocytes/100 WBC (Bld) 0.200 % 0.0-0.9 [facility] Comment on above: IG% - Immature Granu locytes (promyelocytes, myelocytes and metamyelocytes) > 1% indicates that a LEFT SHIFT is Present. Ketones Test strip Ql (U)Ord ered By: Rubens Escudero on 06-13-2024 Ketones Ql (U) Negative Negative [facility] Kidney and Bladderon 025 Kidney and Bladder [facility] Imaging Services [facility] [address] Kidney and Bladder MR#: [id number] Acct: [id number] Name: RADHA BOONE Rep #: [id number] : 2000 F 23 From: Hai Spear MD PCP: JHON SCOTT DO Status: REG ER Study: Kidney and Bladder Date of Exam: 06/13/24 Exam# [id number] Ordering Dr: Rubens Escudero MD PROCEDURE: KIDNEY AND BLADDER 06/13/2024 REASON FOR EXAM: RLQ PAIN, 11 WKS PREG TECHNIQUE: Bilateral renal and bladder ultrasound. COMPARISON: None available FINDINGS: The bladder measures 120 cc with a wall thickness of 3 mm and appears within limits. Bilateral ureteral jets are noted during imaging. The distal ureters are not identified. The right kidney measures 11.6 x 7.4 x 4.4 cm with a cortical thickness of 1 cm. The left kidney measures 12.2 x 6.1 x 5.4 cm with a cortical thickness of 1.3 cm. The kidneys appear within limits for echogenicity without stones, hydronephrosis or perinephric edema seen. No free fluid seen. US/Kidney and Bladder IMPRESSION: The study appears within limits. Reading Location: [facility] CC: Dr. Rubens Escudero MD; JHON SCOTT DO Distillation Operator Helper: Signed Normal [facility] Laboratory - Chemistry and C hemistry - challengeOrdered By: Amada Black on 06-13-2024 Glucose Ql (U) Negative [facility] Laboratory - UrinalysisOrder ed By: Amada Black on 06-13-2024 Protein Ql (U) Negative [facility] Lymphocytes Auto (Unsp spec) [#/Vol]Ordered By: Rubens Escudero on 06-13-2024 Lymphocytes (Bld) [#/Vol] 2.25 10*3/uL 0.83-4.51 [facility] Lymphocytes/100 WBC Auto (Un sp spec)Ordered By: Rubens Escudero on 06-13-2024 Lymphocytes/100 WBC (Bld) 25.9 % 19-41 [facility] MCV (mean corpuscular volume ) determinationOrdered By: Rubens Escudero on 06-13-2024 MCV (RBC) [Entitic vol] 83.8 fL 81-99 [facility] Mean corpuscular hemoglobin (MCH) determinationOrdered By: Rubens Escudero on 06-13-2024 MCH (RBC) [Entitic mass] 29.5 pg 27.0-32.0 [facility] Mean corpuscular hemoglobin concentration (MCHC) determinationOrdered By: Rubens Escudero on 06-13-2024 MCHC (RBC) [Mass/Vol] 35.2 g/dL 32-36 [facility] Mean platelet volume determi nationOrdered By: Rubens Escudero on 06-13-2024 Platelet mean volume (Bld) [Entitic vol] 9.2 fL 6.2-12.0 [facility] Microscopic analysis of urin e for red blood cells (RBC)Ordered By: Rubens Escudero on 06-13-2024 Microscopic analysis of urine for red blood cells (RBC) 0 SEEN /hpf 0-5 [facility] Urine RBC 0 SEEN /hpf 0-5 [facility] Monocyte percentageOrdered B y: Rubens Escudero on 06-13-2024 Monocytes/100 WBC (Bld) 5.4 % 0-10 [facility] Mucus LM Ql (Urine sed)Order ed By: Rubens Escudero on 06-13-2024 Mucus Ql (Urine sed) 0 SEEN /hpf [facility] Neutrophil percentageOrdered By: Rubens Escudero on 06-13-2024 Neutrophils/100 WBC (Bld) 66.2 % 47-70 [facility] Nitrite Test strip Ql (U)Ord ered By: Rubens Escudero on 06-13-2024 Nitrite Ql (U) Negative Negative [facility] Nucleated red blood cell per centageOrdered By: Rubens Escudero on 06-13-2024 Nucleated RBC/100 WBC (Bld) [Ratio] 0 % 0-5 [facility] [employer] Office Visit Reporton 06-13-2024 [employer] Office Visit Report [facility] [address], [address] [place] [address] OFFICE VISIT Date of Service: 06/13/24 MR#: [id number] Acct: [id number] Name: RADHA BOONE Rep #: [id number] : 2000 Provider: BUTCH Caldwell ams Age/Sex: 23/F Location: [facility] Status: Signed Intake Vital Signs 05/23/24 10:49 06/13/24 15:52 Height 5 ft 7 in 5 ft 7 in Weight: 253 lb BMI 39.6 BP 123/82 H Intake Visit Reasons: brown spotting and pain Chief Complaint: Brown Spotting and Pain National Sales Director Required: No Is patient in pain?: No Allergies No Known Allergies Allergy (Verified 05/23/24 10:51) Medications ???Medication ???Instructions ???Recorded ???Confirmed ???Type vit no.105-iron 30 1 ea PO DAILY 12/28/19 06/13/24 Hi story mg-folic acid 1.4 mg-dha 300 mg oral pack cholecalciferol (vitamin D3) 50 50 mcg PO QDAY 05/06/24 06/13/24 H istory mcg (2,000 unit) capsule escitalopram oxalate 20 mg tablet 20 mg PO QDAY 05/06/24 06/13/24 H istory (Lexapro) omeprazole 20 mg capsule,delayed 20 mg PO QDAY 05/06/24 06/13/24 Hi story release Last Menstrual Period: 03/26/24 : No PFSH PFSH Medical History Seasonal allergies Depression Anxiety Surgical History Previous section [place] teeth extracted Family History Mother Thyroid disorder, Onset Age: 38 Hypothyroid Diabetes GDM with both pregnancies Grandmother Thyroid disorder, Onset Age: 55 Maternal-thyroid nodules benign Diabetes Maternal type 2 Grandmother Diabetes Paternal type 2 Social History adopted: No household members: spouse and children housing: house number of children: 1 current occupational status: unemployed current occupation: [employer] pets and animals: Yes (Avoid litterbox) pets and animals: cat(s) and dog(s) history of recent travel: No sexually active: Yes Smoking Status: Former smoker quit date: 01/11/24 pack-years: 3 Electronic Cigarette Use: with nicotine second hand exposure: No quit status: quit date established alcohol intake: current alcohol intake frequency: holidays/special occasions only details: not while substance use type: former substance user Date of last use: last used 03/25/24 and marijuana well-balanced diet: daily or most days caffeine: Yes Type: coffee Number of servings: 1 eating out: 1-3 times/week during the past year weight has: decreased > 10 lbs what type of physical activity do you participate in: none janet/amish: Mosque seatbelt use: always do you feel safe at home: Yes 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 Date Name GA/Weeks Outcome Route Bth Weight Gen Labor Lgth Anesthesia Del Locatn Provider FOB 08/06/20 [place] 39 live - full term 8#1oz Female spinal [facility] Dr. Enedina Balbuena Delivery Date: 08/06/20 Last Updated by: Rona Huff meconium decels, prolonged labor HPI brown spotting and pain Details: RADHA BOONE is a 23 year old who presents for routine OB visit. OB Visit RICHARD Calculator Estimated Delivery Date Method Current WG Current Estimate 12/31/24 LMP (Certain) 11w 2d Other Estimates 12/30/24 Ultrasound #1 11w 3d Expected Delivery Route/Plan plans repeat C/S Specific Issue/Plans Covid status: [] Flu vaccine: [] Tdap vaccine: [] Rhogam: [] LARC form signed: [] Problem list reviewed and updated with the most current plan of care details and appropriate orders placed. Relevant counseling for the gestational age provided. Continue routine care and follow up unless otherwise noted in visit notes/problem list details Initial Weight: 250 lb Date -???-???-???-???-???- ???-???-???-???-???-? ??-???- EGA Weight BP Urine Prot -???-???-???-???-???- ???-???-???-???-???-? ??-???- Glucose FHR FuHt Pres Dilation -???-???-???-???-???- ???-???-???-???-???-? ??-???- Effaced St Visit Note 05/23/24 -???-???-???-???-???- ???-???-???-???-???-? ??-???- 8w 2d 250 lb (+0 oz) 108/79 -???-???-???-???-???- ???-???-???-???-???-? ??-???- 171 -???-???-???-???-???- ???-???-???-???-???-? ??-???- KW- CRL cons with dates. NIPT accepted. plans to get labs next visit. plans R C/S 06/13/24 -???-???-???-???-???- ???-???-???-???-???-? ??-???- 11w 2d 253 lb (+3 lb) 123/82 Negative -???-?? (more content not included)... Normal [facility] Platelet countOrdered By: Arturo Escudero on 06-13-2024 Platelets (Bld) [#/Vol] 257 10*3/uL 150-450 [facility] Potassium (Unsp spec) [Mass/ Vol]Ordered By: Rubens Escudero on 06-13-2024 Potassium [Moles/Vol] 3.9 mmol/L 3.3-5.1 [facility] Potassium measurement (mass/ volume)Ordered By: Rubens Escudero on 06-13-2024 Potassium (Unsp spec) [Mass/Vol] 3.9 mmol/L 3.3-5.1 [facility] Protein Test strip Ql (U)Ord ered By: Rubens Escudero on 06-13-2024 Protein Ql (U) Negative Negative [facility] RBC Auto (Bld) [#/Vol]Ordere d By: Rubens Escudero on 06-13-2024 RBC (Bld) [#/Vol] 4.51 10*6/uL 4.2-5.4 [facility] Serum creatinine measurement (mass/volume)Ordered By: Rubens Escudero on 06-13-2024 Creatinine [Mass/Vol] 0.58 mg/dL Low 0.70-1.20 [facility] Serum glucose measurement (m ass/volume)Ordered By: Rubens Escudero on 06-13-2024 Glucose [Mass/Vol] 96 mg/dL 70-99 [facility] Serum or plasma calcium isabel urement (mass/volume)Ordered By: Rubens Escudero on 06-13-2024 Calcium [Mass/Vol] 9.2 mg/dL 7.6-11.0 [facility] Serum or plasma urea nitroge n measurement (mass/volume)Ordered By: Rubens Escudero on 06-13-2024 Urea nitrogen [Mass/Vol] 6 mg/dL 4-19 [facility] Sodium levelOrdered By: Deshawn Escudero on 06-13-2024 Sodium [Moles/Vol] 137 mmol/L 133-145 [facility] Squamous epithelial cells de tection in urine sediment by light microscopyOrdered By: Rubens Escudero on 06-13-2024 Epithelial cells.squamous LM Ql (Urine sed) 0-5 SEEN /hpf 5-10 [facility] Transvaginal w/Preg USon Transvaginal w/Preg US [facility] Imaging Services [address] [place], [place] [address] Transvaginal w/Preg US MR#: [id number] Acct: [id number] Name: RADHA BOONE Rep #: [id number] : 2000 F 23 From: Hai Spear MD PCP: JHON SCOTT DO Status: REG ER Study: Transvaginal w/Preg US Date of Exam: 06/13/24 Exam# [id number] Ordering Dr: Rubens Escudero MD PROCEDURE: TRANSVAGINAL W/PREG US 06/13/2024 REASON FOR EXAM: R PELVIC PAIN TECHNIQUE: Transabdominal and transvaginal imaging with Doppler COMPARISON: 05/20/2024 FINDINGS: Single live intrauterine with heart rate 159 beats per minute. Estimated gestational age by gestational sac 10 weeks and 5 days, crown-rump length 11 weeks and 5 days. Estimated gestational age by ultrasound 11 weeks and 2 days, RICHARD 10 05/01/2024 Estimated gestational age by LMP 11 weeks 2 days, RICHARD 12/31/2021 by No chelo sac hemorrhage seen. The cervix appears closed. The uterus measures 12 x 8.7 x 7.3 cm and appears within limits. The right ovary measures 3.4 x 1.7 x 1.6 cm. The left ovary measures 3.3 x 1.9 x 2.5 cm. The left ovary contains a hypoechoic focus measuring 2.1 x 1.6 x 1.5 cm, possible corpus luteum cyst. The ovaries appear within limits with bilateral arterial and venous flow seen. No adnexal mass identified. No free fluid seen. US/Transvaginal w/Preg US IMPRESSION: Single live intrauterine as above. Reading Location: [facility] CC: Dr. Rubens Escudero MD; JHON SCOTT DO Distillation Operator Helper: Signed Normal [facility] Urinalysis, Completeon 06-13 AMORPHOUS 1+ URATE Normal [facility] Comment on above: Order Comment: CLEAN CATCH Performed By: #### L 400.0001 ####[facility] [address] [place], [place], [id number] EPI,SQUAMOUS 0-5 SEEN Normal 5-10 [facility] Comment on above: Order Comment: CLEAN CATCH Performed By: #### L 400.0001 ####[facility] [address] [place], [address] BACTERIA 0 SEEN Normal None Seen [facility] Comment on above: Order Comment: CLEAN CATCH Performed By: #### L 400.0001 ####[facility] [address] [place], [address] Mucus Ql (Urine sed) [address] [facility] Comment on above: Order Comment: CLEAN CATCH Performed By: #### L 400.0001 ####[facility] [address] [place], [address] RBC 0 SEEN Normal 0-5 [facility] Comment on above: Order Comment: CLEAN CATCH Performed By: #### L 400.0001 ####[facility] [address] [place], [address] WBC 0 SEEN Normal 0-5 [facility] Comment on above: Order Comment: CLEAN CATCH Performed By: #### L 400.0001 ####[facility] [address] [place], [place], [id number] Urine blood detectionOrdered By: Rubens Ecsudero on 06-13-2024 Urine Occult Blood Negative Negative [facility] Urine clarityOrdered By: Roni Escudero on 06-13-2024 Clarity (U) Sl. Cloudy Clear [facility] Urine color determinationOrd ered By: Rubens Escudero on 06-13-2024 Color (U) Yellow Yellow [facility] Urine glucose detectionOrder ed By: Rubens Escudero on 06-13-2024 Glucose Ql (U) Normal mg/dl Normal [facility] Urine leukocyte esterase det ection by dipstickOrdered By: Rubens Escudero on 06-13-2024 Leukocyte esterase Test strip Ql (U) Negative Negative [facility] Urine pHOrdered By: Rubens Escudero on 06-13-2024 pH (U) 6.0 [pH] 5.0 - 8.0 [facility] Urine sediment bacteria coun t by microscopy (number/high power field)Ordered By: Rubens Escudero on 06-13-2024 Bacteria LM.HPF (Urine sed) [#/Area] 0 /[HPF] None Seen [facility] Urine specific gravity measu rementOrdered By: Rubens Escudero on 06-13-2024 Specific gravity (U) [Rel density] 1.020 1.002-1.030 [facility] Urine urobilinogen measureme ntOrdered By: Rubens Escudero on 06-13-2024 Urobilinogen Ql (U) Normal mg/dl Normal [facility] Urobilinogen Ql (U)Ordered B y: Rubens Escudero on 06-13-2024 Urine Urobilinogen Normal mg/dl Normal [facility] White blood cell (WBC) count Ordered By: Rubens Escudero on 06-13-2024 WBC (Bld) [#/Vol] 8.7 10*3/uL 4.4-11.0 [facility] White blood cell countOrdere d By: Rubens Escudero on 06-13-2024 Urine WBC 0 SEEN /hpf 0-5 [facility] White blood cell count 0 SEEN /hpf 0-5 [facility] Chlamydia/GC NANCY aptimaon CHLAMY,NUC ACID Negative Normal Negative [facility] Comment on above: Performed By: #### L 7000.1800, M1.0 ####[facility] [address] [place], [place], [address] GC BY NUC ACID Negative Normal Negative [facility] Comment on above: Result Comment: Perf ormed at: =G - [facility] [address] [id number] Orthodontic Technician: Alpa Pollock MD, Phone: [phone] Performed By: #### L 7000.1800, M100.0 ####[facility] [address] [place], [address] Urine Cultureon 05-25-2024 URC Mixed Gram Positive Organisms [place] Count 11,000-25,000 MIXC Mixed contaminants. Submit a new specimen if indicated. Normal [facility] Comment on above: Performed By: #### L 7000.1800, M100.2200 ####[facility] [address] [place], [place], [address] C. trachomatis rRNA NANCY+prob e Ql (Unsp spec)Ordered By: Amada Black on 05-23-2024 Chlamydia DNA (NANCY) Negative Negative [facility] Chlamydia trachomatis rRNA d etection by probe and target amplification methodOrdered By: Amada Black on 05-23-2024 C. trachomatis rRNA NANCY+probe Ql (Unsp spec) Negative Negative [facility] Neisseria gonorrhoeae nuclei c acid detection by amplified probe techniqueOrdered By: Amada Black on 05-23-2024 N. gonorrhoeae DNA NANCY+probe Ql (Unsp spec) Negative Negative [facility] Comment on above: Performed at: =[address] [id number] Director: Alpa Pollock MD, Phone: [phone] [employer] [employer] Office Visit Reporton 05-23-2024 [employer] Office Visit Report [facility] [address], [address] [place] [address] OFFICE VISIT Date of Service: 05/23/24 MR#: [id number] Acct: [id number] Name: RADHA BOONE Rep #: [id number] : 2000 Provider: [facility] Age/Sex: 23/F Location: [facility] Status: Signed Intake Vital Signs 08/05/20 00:10 05/20/24 11:10 05/23/24 10:49 Height 5 ft 7 in 5 ft 7 in 5 ft 7 in Weight: 250 lb BMI 39.1 BP 108/79 Intake Visit Reasons: NOB, LMP 03/26, RICHARD 12/31/24 Chief Complaint: new OB Is patient in pain?: No Allergies No Known Allergies Allergy (Verified 05/23/24 10:51) Medications ???Medication ???Instructions ???Recorded ???Confirmed ???Type vit no.105-iron 30 1 ea PO DAILY 12/28/19 05/23/24 Hi story mg-folic acid 1.4 mg-dha 300 mg oral pack cholecalciferol (vitamin D3) 50 50 mcg PO QDAY 05/06/24 05/23/24 H istory mcg (2,000 unit) capsule escitalopram oxalate 20 mg tablet 20 mg PO QDAY 05/06/24 05/23/24 H istory (Lexapro) omeprazole 20 mg capsule,delayed 20 mg PO QDAY 05/06/24 05/23/24 Hi story release Last Menstrual Period: 03/26/24 : Yes PFSH PFSH Medical History (Updated 05/23/24 @ 11:02 by Amada Black CNM) Seasonal allergies Depression Anxiety Surgical History (Updated 05/23/24 @ 11:14 by Amada Black CNM) Previous section [place] teeth extracted Family History Mother Thyroid disorder, Onset Age: 38 Hypothyroid Diabetes GDM with both pregnancies Grandmother Thyroid disorder, Onset Age: 55 Maternal-thyroid nodules benign Diabetes Maternal type 2 Grandmother Diabetes Paternal type 2 Social History adopted: No household members: spouse and children housing: house number of children: 1 service: No current occupational status: unemployed current occupation: [employer] pets and animals: Yes (Avoid litterbox) pets and animals: cat(s) and dog(s) history of recent travel: No sexually active: Yes Smoking Status: Former smoker quit date: 01/11/24 pack-years: 3 Electronic Cigarette Use: with nicotine smoking status stop date: 01/11/24 second hand exposure: No quit status: quit date established alcohol intake: current alcohol intake frequency: holidays/special occasions only details: not while substance use type: former substance user Date of last use: last used 03/25/24 and marijuana well-balanced diet: daily or most days caffeine: Yes Type: coffee Number of servings: 1 eating out: 1-3 times/week during the past year weight has: decreased > 10 lbs what type of physical activity do you participate in: none janet/amish: Mosque seatbelt use: always do you feel safe at home: Yes 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 Date Name GA/Weeks Outcome Route Bth Weight Gen Labor Lgth Anesthesia Del Locatn Provider FOB 08/06/20 [place] 39 live - full term 8#1oz Female spinal [facility] Dr. Enedina Balbuena Delivery Date: 08/06/20 Last Updated by: Rona Huff meconium decels, prolonged labor HPI NOB, LMP 03/26, RICHARD 12/31/24 Details: RADHA BOONE is a 23 year old who presents for New OB visit. OB Visit RICHARD Calculator Estimated Delivery Date Method Current WG Current Estimate 12/31/24 LMP (Certain) 8w 2d Other Estimates 12/30/24 Ultrasound #1 8w 3d Comments: HIV: Urine Culture: Sequential Screen: NIPT Screen: Estimated Due Date: 12/31/24 Expected Delivery Route/Plan plans repeat C/S Specific Issue/Plans Covid status: [] Flu vaccine: [] Tdap vaccine: [] Rhogam: [] LARC form signed: [] Problem list reviewed and updated with the most current plan of care details and appropriate orders placed. Relevant counseling for the gestational age provided. Continue routine care and follow up unless otherwise noted in visit notes/problem list details Initial Weight: 250 lb Date -???-???-???-???-???- ???-???-???-???-???-? ??-???- EGA Weight BP Urine Prot -???-???-???-???-???- ???-???-???-???-???-? ??-???- Glucose FHR FuHt Pres Dilation -???-???-???-???-???- ???-???-???-???-???-? ??-???- Effaced St Visit Note 05/23/24 -???-???-???-???-???- ???-???-???-???-???-? ??-???- 8w 2d 250 lb (+0 oz) 108/79 -???-???-???-???-???- ???-???-???-???-???-? ??-???- 171 -???-???-???-???-???- ???-???-???-???-???-? ??-???- KW- CRL cons with dates. NIPT accep (more content not included)... Normal [facility] Urine cultureOrdered By: Demetrius Black on 05-23-2024 Bacteria identified Cx Nom (U) Positive Abnormal [facility] Urine Cultureon 05-21-2024 URC Mixed Gram Positive Organisms [place] Count 1000-10,000 MIXC Mixed contaminants. Submit a new specimen if indicated. Normal [facility] Comment on above: Performed By: #### L 400.0001, M100.2200 #### [facility] [address] [place], [address] Absolute lymphocyte countOrd ered By: Brody Cleaning on 05-20-2024 Lymphocytes Auto (Unsp spec) [#/Vol] 2.18 10*3/uL 0.83-4.51 [facility] Absolute neutrophil countOrd ered By: Brody Cleaning on 05-20-2024 Neutrophils (Bld) [#/Vol] 4.2 10*3/uL 2.0-7.7 [facility] Anion gap in Serum or Plasma Ordered By: Brody Cleaning on 05-20-2024 Anion gap [Moles/Vol] 11 mmol/L 5-15 [facility] Automated lymphocyte count a s percentage of total leukocytesOrdered By: Brody Cleaning on 05-20-2024 Lymphocytes/100 WBC Auto (Unsp spec) 30.2 % 19-41 [facility] [id number] 05-20-2024 ABO and Rh group Nom (Bld) Blood group B Rh(D) positive Normal [facility] Comment on above: Performed By: #### L 500.4050, L700.8000, B882-1, L100.0100 #### [facility] [address] [place], [place], [id number] BUN/creatinine ratioOrdered By: Brody Cleaning on 05-20-2024 Urea nitrogen/Creatinine [Mass ratio] 11.5 mg/mg 10-20 [facility] Basophil percentageOrdered B y: Brody Cleaning on 05-20-2024 Basophils/100 WBC (Bld) 0.4 % 0-1 [facility] Bilirubin Test strip Ql (U)O rdered By: Brodyxenia Cleaning on 05-20-2024 Bilirubin Ql (U) Negative Negative [facility] Bilirubin, totalOrdered By: Brodyxenia Cleaning on 05-20-2024 Bilirubin [Mass/Vol] 0.25 mg/dL Normal 0.00-1.30 [facility] Comment on above: Performed By: #### L 500.4050, L700.8000, B882-1, L100.0100 #### [facility] [address] [place], [address] CBC W/Diff, Automatedon 05-10 Absolute Lymph 2.18 X10 3/uL Normal 0.83-4.51 [facility] Comment on above: Performed By: #### L 500.4050, L700.8000, B882-1, L100.0100 #### [facility] [address] [place], [address] Absolute Neut 4.2 X10 3/uL Normal 2.0-7.7 [facility] Comment on above: Performed By: #### L 500.4050, L700.8000, B882-1, L100.0100 #### [facility] [address] [place], [address] Basophils/100 WBC (Bld) 0.4 % Normal 0-1 [facility] Comment on above: Performed By: #### L 500.4050, L700.8000, B882-1, L100.0100 #### [facility] [address] [place], [address] Eosinophils/100 WBC (Bld) 1.8 % Normal 0-5 [facility] Comment on above: Performed By: #### L 500.4050, L700.8000, B882-1, L100.0100 #### [facility] [address] [place], [address] Erythrocyte distribution width (RBC) [Ratio] 12.6 % Normal 11.6-14.6 [facility] Comment on above: Performed By: #### L 500.4050, L700.8000, B882-1, L100.0100 #### [facility] [address] [place], [address] Hematocrit (Bld) [Volume fraction] 39.8 % Normal 37-47 [facility] Comment on above: Performed By: #### L 500.4050, L700.8000, B882-1, L100.0100 #### [facility] [address] [place], [address] Hemoglobin (Bld) [Mass/Vol] 13.6 g/dL Normal 12.0-15.0 [facility] Comment on above: Performed By: #### L 500.4050, L700.8000, B882-1, L100.0100 #### [facility] [address] [place], [address] IG% 0.300 Normal 0.0-0.9 [facility] Comment on above: Result Comment: IG% - Immature Granulocytes (promyelocytes, myelocytes and metamyelocytes) > 1% indicates that a LEFT SHIFT is Present. Performed By: #### L 500.4050, L700.8000, B882-1, L100.0100 #### [facility] [address] [place], [address] Lymphocytes/100 WBC (Bld) 30.2 % Normal 19-41 [facility] Comment on above: Performed By: #### L 500.4050, L700.8000, B882-1, L100.0100 #### [facility] [address] [place], [address] MCH (RBC) [Entitic mass] 28.9 pg Normal 27.0-32.0 [facility] Comment on above: Performed By: #### L 500.4050, L700.8000, B882-1, L100.0100 #### [facility] [address] [place], [address] MCHC (RBC) [Mass/Vol] 34.2 g/dL Normal 32-36 [facility] Comment on above: Performed By: #### L 500.4050, L700.8000, B882-1, L100.0100 #### [facility] [address] [place], [address] MCV (RBC) [Entitic vol] 84.7 fL Normal 81-99 [facility] Comment on above: Performed By: #### L 500.4050, L700.8000, B882-1, L100.0100 #### [facility] [address] [place], [address] Monocytes/100 WBC (Bld) 9.4 % Normal 0-10 [facility] Comment on above: Performed By: #### L 500.4050, L700.8000, B882-1, L100.0100 #### [facility] [address] [place], [address] Neutrophils/100 WBC (Bld) 57.9 % Normal 47-70 [facility] Comment on above: Performed By: #### L 500.4050, L700.8000, B882-1, L100.0100 #### [facility] [address] [place], [address] Nucleated RBC (Bld) [#/Vol] 0 10*3/uL Normal 0-5 [facility] Comment on above: Performed By: #### L 500.4050, L700.8000, B882-1, L100.0100 #### [facility] [address] [place], [address] Platelet mean volume (Bld) [Entitic vol] 9.2 fL Normal 6.2-12.0 [facility] Comment on above: Performed By: #### L 500.4050, L700.8000, B882-1, L100.0100 #### [facility] [address] [place], [address] Platelets (Bld) [#/Vol] 250 10*3/uL Normal 150-450 [facility] Comment on above: Performed By: #### L 500.4050, L700.8000, B882-1, L100.0100 #### [facility] [address] [place], [address] RBC (Bld) [#/Vol] 4.70 10*6/uL Normal 4.2-5.4 [facility] Comment on above: Performed By: #### L 500.4050, L700.8000, B882-1, L100.0100 #### [facility] [address] [place], [address] RDW SD 38.5 fl Normal 35.1-43.9 [facility] Comment on above: Performed By: #### L 500.4050, L700.8000, B882-1, L100.0100 #### [facility] [address] [place], [address] WBC (Bld) [#/Vol] 7.2 10*3/uL Normal 4.4-11.0 [facility] Comment on above: Performed By: #### L 500.4050, L700.8000, B882-1, L100.0100 #### [facility] [address] [place], [address] Carbon dioxide, total [Moles /volume] in Central venous bloodOrdered By: Brody Cleaning on 05-20-2024 CO2 [Moles/Vol] 22.8 mmol/L Normal 21.0-32.0 [facility] Comment on above: Performed By: #### L 500.4050, L700.8000, B882-1, L100.0100 #### [facility] [address] [place], [address] Chloride assayOrdered By: Surjit Cleaning on 05-20-2024 Chloride [Moles/Vol] 104 mmol/L Normal 98-108 [facility] Comment on above: Performed By: #### L 500.4050, L700.8000, B882-1, L100.0100 #### [facility] [address] [place], [address] Comprehensive Metabolic Prof ilon 05-20-2024 ALK PHOS 76 U/L Normal 35-104 [facility] Comment on above: Performed By: #### L 500.4050, L700.8000, B882-1, L100.0100 #### [facility] [address] [place], [address] BUN/CRE 11.5 RATIO Normal 10-20 [facility] Comment on above: Performed By: #### L 500.4050, L700.8000, B882-1, L100.0100 #### [facility] [address] [place], [address] ECRCL 191.87 ml/min Normal 50-250 [facility] Comment on above: Performed By: #### L 500.4050, L700.8000, B882-1, L100.0100 #### [facility] [address] [place], [address] GAP 11 Normal 5-15 [facility] Comment on above: Performed By: #### L 500.4050, L700.8000, B882-1, L100.0100 #### [facility] [address] [place], [address] T PROT 7.0 g/dL Normal 5.9-8.4 [facility] Comment on above: Performed By: #### L 500.4050, L700.8000, B882-1, L100.0100 #### [facility] [address] [place], [address] Comprehensive Metabolic Prof ilOrdered By: Brody Cleaning on 05-20-2024 AST [Catalytic activity/Vol] 17 U/L Normal <=31 [facility] Comment on above: Performed By: #### L 500.4050, L700.8000, B882-1, L100.0100 #### [facility] [address] [place], [address] Emergency Department Summary on 05-20-2024 Emergency Department Summary [facility] Medical Records Department [address] [place] [address] Emergency Department Summary 05/20/24 MR#: [id number] Acct: [id number] Name: RADHA BOONE Rep #: [id number] : 2000 23 From: Brody Cleaning DO PCP: JHON SCOTT DO Status:REG ER Location: ED HPI HPI - Female History of Present Illness Chief Complaint: Vag Bld, Preg Narrative Narrative: Patient is a 23-year-old female who presents to the emergency department with a chief complaint of vaginal bleeding. Patient states that she currently is 8 weeks and 2 days ago she noted that she had some vaginal spotting. She states that today when she woke up and went to the bathroom noted that this was slightly heavier and more dark in nature. She states that she does have appointment on Sunday with [facility] however states that she feels extremely anxious and wanted to know if the baby is okay prompting her to come here for further evaluation management. Patient states that she did have subchorionic hemorrhage with her first child however this resolved on its own and she had no other complications during her . Patient did note that approximately 2 days prior to this starting she did have intercourse. Patient denies any abdominal pain or cramping. [facility] Medical History Seasonal allergies Depression Anxiety Home Medications ???Medication ???Instructions ???Recorded ???Last Taken ???Type vit no.105-iron 30 1 ea PO DAILY 12/28/19 08/03/20 Hi story mg-folic acid 1.4 mg-dha 300 mg oral pack cholecalciferol (vitamin D3) 50 50 mcg PO QDAY 05/06/24 Unknown Hi story mcg (2,000 unit) capsule escitalopram oxalate 20 mg tablet 20 mg PO QDAY 05/06/24 Unknown Hi story (Lexapro) omeprazole 20 mg capsule,delayed 20 mg PO QDAY 05/06/24 Unknown His tory release Allergy/AdvReac Type Severity Reaction Status Date / Time No Known Allergies Allergy Verified 05/20/24 11:11 Family History Mother Thyroid disorder, Onset Age: 38 Hypothyroid Diabetes GDM with both pregnancies Grandmother Thyroid disorder, Onset Age: 55 Maternal-thyroid nodules benign Diabetes Maternal type 2 Grandmother Diabetes Paternal type 2 Surgical History Previous section [place] teeth extracted Social History adopted: No household members: spouse and children housing: house number of children: 1 current occupational status: unemployed current occupation: [employer] pets and animals: Yes (Avoid litterbox) pets and animals: cat(s) and dog(s) history of recent travel: No sexually active: Yes Smoking Status: Former smoker quit date: 01/11/24 pack-years: 3 Electronic Cigarette Use: with nicotine second hand exposure: No quit status: quit date established alcohol intake: current alcohol intake frequency: holidays/special occasions only details: not while substance use type: former substance user Date of last use: last used 03/25/24 and marijuana well-balanced diet: daily or most days caffeine: Yes Type: coffee Number of servings: 1 eating out: 1-3 times/week during the past year weight has: decreased > 10 lbs what type of physical activity do you participate in: none janet/amish: Mosque seatbelt use: always do you feel safe at home: Yes 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 [employer] ROS ROS ED ROS Narrative Constitutional: Denies fevers, chills, headaches Abdomen: Denies abdominal pain nausea vomit diarrhea : Complains of vaginal spotting as noted above denies any painful urination Neurological: Denies numbness, weakness, tingling Musculoskeletal: Denies back pain Skin: Denies rashes or lesions EXAM Physical Exam Narrative Exam Narrative: General: Patient was lying in bed rest comfortably did not appear to be in acute distress Head: Atraumatic, normocephalic Eyes: PERRL bilaterally, EOMI bilaterally, no conjunctival injection noted Neck: Soft, supple, trachea midline Cardiovascular: Regular rate and rhythm no murmurs gallops rubs noted Respiratory: Clear to auscultation bilaterally Abdomen: Soft, nondistended, no tenderness palpation Const Vital Signs: 05/20/24 11:10 05/20/24 13:09 05/20/24 15:00 Temperature 97.1 F L Temperature Source Temporal Pulse Rate 101 H 78 78 Respiratory Rate 20 H 16 16 Blood Pressure 122/89 H 112/89 H 116/80 Blood Pressure Mean 100 96 92 Pulse Ox 98 98 98 Oxygen Delivery Method Room Air MDM MDM MDM Narrative Medical decision making narrative: Patient is a 23-year-old fe (more content not included)... Normal [facility] Eosinophil percentageOrdered By: Brody Cleaning on 05-20-2024 Eosinophils/100 WBC (Bld) 1.8 % 0-5 [facility] Epithelial cells.squamous LM Ql (Urine sed)Ordered By: Brody Cleaning on 05-20-2024 Epithelial cells.squamous LM.HPF (Urine sed) [#/Area] 0 /[HPF] 5-10 [facility] Erythrocyte distribution wid th ratioOrdered By: Brody Cleaning on 05-20-2024 Erythrocyte distribution width (RBC) [Ratio] 12.6 % 11.6-14.6 [facility] Erythrocyte distribution wid th standard deviationOrdered By: Brody Cleaning on 05-20-2024 Erythrocyte distribution width (RBC) [Entitic vol] 38.5 fL 35.1-43.9 [facility] Erythrocyte distribution width (RBC) [Ratio] 38.5 fl 35.1-43.9 [facility] Estimation of creatinine ana aranceOrdered By: Brody Cleaning on 05-20-2024 Estimated Creatinine Clearance Calc 191.87 ml/min 50-250 [facility] GFR/1.73 sq M.predicted ab g non-blacks MDRD (S/P/Bld) [Vol rate/Area]Ordered By: Brody Cleaning on 05-20-2024 Estimated GFR (MDRD) Non-Af Amer 129 >60 [facility] Comment on above: mL/min/1.73m2 CKD-EP I Creatinine Equation (2020) Glomerular filtration rate ( GFR) estimation/1.73 sq m using serum, plasma, or whole bOrdered By: Brody Cleaning on 05-20-2024 GFR/1.73 sq M.predicted among non-blacks MDRD (S/P/Bld) [Vol rate/Area] 129 mL/min/{1.73_m2} Normal >60 [facility] Comment on above: mL/min/1.73m2 CKD-EP I Creatinine Equation (2020) Result Comment: mL/m in/1.73m2 CKD-EPI Creatinine Equation (2020) Performed By: #### L 500.4050, L700.8000, B882-1, L100.0100 #### [facility] [address] [place] [place], [id number] Glucose Ql (U)Ordered By: Surjit Cleaning on 05-20-2024 Urine Glucose (UA) Normal mg/dl Normal [facility] HCG ( test) QlOrder ed By: Brody Cleaning on 05-20-2024 Human Chorionic Gonadotropin, Quant 60837 mIU/mL High <9 [facility] Comment on above: Gestational Age0.2-1 Week: 5-50 mIU/mL1-2 Weeks: 50-500 mIU/mL2-3 Weeks: 100-5000 mIU/mL3-4 Weeks: 500-10,000 mIU/mL4-5 Weeks:1000-50,000 mIU/mL5-6 Weeks: 10,000-100,000 mIU/mL6-8 Weeks: 15,000-200,000 mIU/mL2-3 Months:10,000-100,000 mIU/mL Hematocrit Auto (Bld) [Volum e fraction]Ordered By: Brody Cleaning on 05-20-2024 Hematocrit (Bld) [Volume fraction] 39.8 % 37-47 [facility] Hemoglobin measurementOrdere d By: Brody Cleaning on 05-20-2024 Hemoglobin (Bld) [Mass/Vol] 13.6 g/dL 12.0-15.0 [facility] Immature granulocytes/100 WB C Auto (Bld)Ordered By: Brody Cleaning on 05-20-2024 Immature granulocytes/100 WBC (Bld) 0.300 % 0.0-0.9 [facility] Comment on above: IG% - Immature Granu locytes (promyelocytes, myelocytes and metamyelocytes) > 1% indicates that a LEFT SHIFT is Present. Ketones Test strip Ql (U)Ord ered By: Brody Cleaning on 05-20-2024 Ketones Ql (U) Negative Negative [facility] Lymphocytes Auto (Unsp spec) [#/Vol]Ordered By: Brody Cleaning on 05-20-2024 Lymphocytes (Bld) [#/Vol] 2.18 10*3/uL 0.83-4.51 [facility] Lymphocytes/100 WBC Auto (Un sp spec)Ordered By: Brody Cleaning on 05-20-2024 Lymphocytes/100 WBC (Bld) 30.2 % 19-41 [facility] MCV (mean corpuscular volume ) determinationOrdered By: Brody Cleaning on 05-20-2024 MCV (RBC) [Entitic vol] 84.7 fL 81-99 [facility] Mean corpuscular hemoglobin (MCH) determinationOrdered By: Brody Cleaning on 05-20-2024 MCH (RBC) [Entitic mass] 28.9 pg 27.0-32.0 [facility] Mean corpuscular hemoglobin concentration (MCHC) determinationOrdered By: Brody Cleaning on 05-20-2024 MCHC (RBC) [Mass/Vol] 34.2 g/dL 32-36 [facility] Mean platelet volume determi nationOrdered By: Brody Cleaning on 05-20-2024 Platelet mean volume (Bld) [Entitic vol] 9.2 fL 6.2-12.0 [facility] Microscopic analysis of urin e for red blood cells (RBC)Ordered By: Brody Cleaning on 05-20-2024 Microscopic analysis of urine for red blood cells (RBC) 0-5 SEEN /hpf 0-5 [facility] Urine RBC 0-5 SEEN /hpf 0-5 [facility] Monocyte percentageOrdered B y: Brody Cleaning on 05-20-2024 Monocytes/100 WBC (Bld) 9.4 % 0-10 [facility] Mucus LM Ql (Urine sed)Order ed By: Brody Cleaning on 05-20-2024 Mucus Ql (Urine sed) 0 SEEN /hpf [facility] Neutrophil percentageOrdered By: Brody Cleaning on 05-20-2024 Neutrophils/100 WBC (Bld) 57.9 % 47-70 [facility] Nitrite Test strip Ql (U)Ord ered By: Brody Cleaning on 05-20-2024 Nitrite Ql (U) Negative Negative [facility] Nucleated red blood cell per centageOrdered By: Brody Cleaning on 05-20-2024 Nucleated RBC/100 WBC (Bld) [Ratio] 0 % 0-5 [facility] Platelet countOrdered By: Surjit Cleaning on 05-20-2024 Platelets (Bld) [#/Vol] 250 10*3/uL 150-450 [facility] Potassium measurement (mass/ volume)Ordered By: Brody Cleaning on 05-20-2024 Potassium (Unsp spec) [Mass/Vol] 3.7 mmol/L 3.3-5.1 [facility] Potassium [Moles/Vol] 3.7 mmol/L Normal 3.3-5.1 [facility] Comment on above: Performed By: #### L 500.4050, L700.8000, B882-1, L100.0100 #### [facility] [address] [place] [address]. [place], [address] Protein Test strip Ql (U)Ord ered By: Brody Cleaning on 05-20-2024 Protein Ql (U) Negative Negative [facility] RBC Auto (Bld) [#/Vol]Ordere d By: Brody Cleannig on 05-20-2024 RBC (Bld) [#/Vol] 4.70 10*6/uL 4.2-5.4 [facility] Serum creatinine measurement (mass/volume)Ordered By: Brody Cleaning on 05-20-2024 Creatinine [Mass/Vol] 0.59 mg/dL Low 0.70-1.20 [facility] Comment on above: Performed By: #### L 500.4050, L700.8000, B882-1, L100.0100 #### [facility] [address] [place], [address] Serum globulin measurementOr dered By: Brody Cleaning on 05-20-2024 Globulin (S) [Mass/Vol] 3.0 g/dL Normal 2.2-4.2 [facility] Comment on above: Performed By: #### L 500.4050, L700.8000, B882-1, L100.0100 #### [facility] [address] [place], [place], [address] Serum glucose measurement (m ass/volume)Ordered By: Brody Cleaning on 05-20-2024 Glucose [Mass/Vol] 84 mg/dL Normal 70-99 [facility] Comment on above: Performed By: #### L 500.4050, L700.8000, B882-1, L100.0100 #### [facility] [address] [place], [address] Serum human chorionic gonado tropin detection for pregnancyOrdered By: Brody Cleaning on 05-20-2024 HCG ( test) [place]l [address] mIU/mL High <9 [facility] Comment on above: Gestational Age0.2-1 Week: 5-50 mIU/mL1-2 Weeks: 50-500 mIU/mL2-3 Weeks: 100-5000 mIU/mL3-4 Weeks: 500-10,000 mIU/mL4-5 Weeks:1000-50,000 mIU/mL5-6 Weeks: 10,000-100,000 mIU/mL6-8 Weeks: 15,000-200,000 mIU/mL2-3 Months:10,000-100,000 mIU/mL Serum or plasma alanine hurley otransferase (ALT) measurementOrdered By: Brody Cleaning on 05-20-2024 ALT [Catalytic activity/Vol] 17 U/L Normal <=34 [facility] Comment on above: Performed By: #### L 500.4050, L700.8000, B882-1, L100.0100 #### [facility] [address] [place], [address] Serum or plasma albumin isabel urement (mass/volume)Ordered By: Brody Cleaning on 05-20-2024 Albumin [Mass/Vol] 3.9 g/dL Normal 3.5-5.0 [facility] Comment on above: Performed By: #### L 500.4050, L700.8000, B882-1, L100.0100 #### [facility] [address] [place], [address] Serum or plasma albumin/glob ulin mass ratioOrdered By: Brody Cleaning on 05-20-2024 Albumin/Globulin [Mass ratio] 1.3 {ratio} Normal 0.9-2.4 [facility] Comment on above: Performed By: #### L 500.4050, L700.8000, B882-1, L100.0100 #### [facility] [address] [place], [address] Serum or plasma alkaline néstor sphatase measurementOrdered By: Brody Cleaning on 05-20-2024 ALP [Catalytic activity/Vol] 76 U/L 35-104 [facility] Serum or plasma calcium isabel urement (mass/volume)Ordered By: Brody Cleaning on 05-20-2024 Calcium [Mass/Vol] 9.2 mg/dL Normal 7.6-11.0 [facility] Comment on above: Performed By: #### L 500.4050, L700.8000, B882-1, L100.0100 #### [facility] [address] [place], [address] Serum or plasma urea nitroge n measurement (mass/volume)Ordered By: Brody Cleaning on 05-20-2024 Urea nitrogen [Mass/Vol] 7 mg/dL Normal 4-19 [facility] Comment on above: Performed By: #### L 500.4050, L700.8000, B882-1, L100.0100 #### [facility] [address] [place], [address] Sodium levelOrdered By: Gomez Cleaning on 05-20-2024 Sodium [Moles/Vol] 138 mmol/L Normal 133-145 [facility] Comment on above: Performed By: #### L 500.4050, L700.8000, B882-1, L100.0100 #### [facility] [address] [place], [address] Squamous epithelial cells de tection in urine sediment by light microscopyOrdered By: Brody Cleaning on 05-20-2024 Epithelial cells.squamous LM Ql (Urine sed) 0-5 SEEN /hpf 5-10 [facility] Total proteinOrdered By: Hubert Cleaning on 05-20-2024 Protein [Mass/Vol] 7.0 g/dL 5.9-8.4 [facility] Transvaginal w/Preg USon Transvaginal w/Preg US [facility] [address] [place] [address] Transvaginal w/Preg US MR#: [id number] Acct: [id number] Name: RADHA BOONE Rep #: [id number] : 2000 F 23 From: Ervin Webb MD PCP: JHON SCOTT DO Status: REG ER Study: Transvaginal w/Preg US Date of Exam: 05/20/24 Exam# [id number] Ordering Dr: Brody Cleaning DO PROCEDURE: TRANSVAGINAL W/PREG US (USTVAGP), 05/20/2024 REASON FOR EXAM: BLEEDING 8 WEEKS PREG history of . Reportedly at 7 weeks 6 days by LMP, with RICHARD 12/31/2024. TECHNIQUE: Grayscale and color/spectral doppler transvaginal pelvic ultrasound was performed with attention to the uterus and associated early gestation. M-mode imaging was utilized for documentation of cardiac activity. COMPARISON: 12/28/2019. Note only the images are available for comparison; the report is not available for review at the time of dictation. FINDINGS: A single intrauterine gestational sac is identified. Gestational sac: Mean sac diameter 2.7 cm corresponding to 7 weeks 5 days. There is a small cystic area adjacent to the gestational sac measuring 1.1 x 0.7 x 0.7 cm likely reflecting a tiny perigestational hemorrhage. This involves less than 25% of the gestational sac surface area. [place]-rump length: 17 mm, corresponding to 8 weeks and 0 days. Yolk sac: Present Cardiac activity: Present, 157 bpm, regular. Estimated delivery date (RICHARD): 12/30/2024 by [facility]. Cervix: Unremarkable. Uterus: 10.4 x 7.1 x 5.5 cm. scar noted along the anterior lower uterine segment. Right ovary: 2.7 x 2.0 x 1.7 cm (estimated volume 4.9 mL). A simple appearing cyst adjacent to but not clearly located within the right ovary medially measures 1.1 x 1.0 x 0.9 cm. Normal low resistance arterial waveforms. Left ovary: 3.4 x 2.6 x 2.1 cm (estimated volume 9.7 mL). Peripherally vascular likely corpus luteum measures 1.5 x 1.7 x 1.9 cm. Normal low resistance arterial and venous waveforms. Other: No visualized pelvic free fluid. US/Transvaginal w/Preg US IMPRESSION: 1. Single living intrauterine gestational sac with including 17 mm pole corresponding to a gestational age of 8 weeks 0 days corresponding to RICHARD 12/30/2024. This is compatible with reported previously established dates. 2. Small 1.1 cm suspected perigestational hemorrhage may account for patient presentation. Recommend clinical follow-up. 3. Simple appearing 1.1 cm right adnexal cyst, not clearly located within the ovary. This may reflect a physiologic cysts or perhaps a paraovarian cyst. 4. Recommend routine complete anatomic survey at 20 weeks. 5. Additional description as above. Reading Location: [id number] CC: Dr. Brody Cleaning DO; JHON SCOTT DO Distillation Operator Helper: Signed Normal [facility] Urinalysis, Completeon 05-20 EPI,SQUAMOUS 0-5 SEEN Normal 5-10 [facility] Comment on above: Order Comment: REAGAN CTOR TO SPECIFY Performed By: #### L 400.0001 #### [facility] [address] [place], [address] RBC 0-5 SEEN Normal 0-5 [facility] Comment on above: Order Comment: REAGAN CTOR TO SPECIFY Performed By: #### L 400.0001 #### [facility] [address] [place], [address] WBC 0-5 SEEN Normal 0-5 [facility] Comment on above: Order Comment: REAGAN CTOR TO SPECIFY Performed By: #### L 400.0001 #### [facility] [address] [place], [address] BACTERIA 0 SEEN Normal None Seen [facility] Comment on above: Order Comment: CLEAN CATCH Result Comment: dupl icate Performed By: #### L 400.0001, M1.2199 #### [facility] [address] [place], [address] EPI,SQUAMOUS 0 SEEN Normal 5-10 [facility] Comment on above: Order Comment: CLEAN CATCH Result Comment: dupl icate Performed By: #### L 400.0001, M100.0 #### [facility] [address] [place], [address] Mucus Ql (Urine sed) [address] [facility] Comment on above: Order Comment: CLEAN CATCH Result Comment: dupl icate Performed By: #### L 400.0001, .2199 #### [facility] [address] [place], [address] WBC 0 SEEN Normal 0-5 [facility] Comment on above: Order Comment: CLEAN CATCH Result Comment: dupl icate Performed By: #### L 400.0001, .2199 #### [facility] [address] [place], [address] BACTERIA 0 SEEN Normal None Seen [facility] Comment on above: Order Comment: COLLE CTOR TO SPECIFY Performed By: #### L 400.0001 #### [facility] [address] [place], [address] Mucus Ql (Urine sed) [address] [facility] Comment on above: Order Comment: COLLE CTOR TO SPECIFY Performed By: #### L 400.0001 #### [facility] [address] [place], [address] BILIRUBIN URINE Normal Negative [facility] Comment on above: Order Comment: CLEAN CATCH Result Comment: dupl icate Performed By: #### L 400.0001, #### [facility] [address] [place], [address] Clarity (U) Normal Clear [facility] Comment on above: Order Comment: CLEAN CATCH Result Comment: dupl icate Performed By: #### L 400.0001, #### [facility] [address] [place], [address] Color (U) Normal Yellow [facility] Comment on above: Order Comment: CLEAN CATCH Result Comment: dupl icate Performed By: #### L 400.0001, #### [facility] [address] [place], [address] GLUCOSE, UR Normal Normal [facility] Comment on above: Order Comment: CLEAN CATCH Result Comment: dupl icate Performed By: #### L 400.0001, M1.2199 #### [facility] [address] [place], [address] KETONE UR Normal Negative [facility] Comment on above: Order Comment: CLEAN CATCH Result Comment: dupl icate Performed By: #### L 400.0001, .2199 #### [facility] [address] [place], [address] LEUK ESTERASE Normal Negative [facility] Comment on above: Order Comment: CLEAN CATCH Result Comment: dupl icate Performed By: #### L 400.0001, .2199 #### [facility] [address] [place], [address] Nitrite Ql (U) Normal Negative [facility] Comment on above: Order Comment: CLEAN CATCH Result Comment: dupl icate Performed By: #### L 400.0001, #### [facility] [address] [place], [address] OCCULT BLOOD-UR Normal Negative [facility] Comment on above: Order Comment: CLEAN CATCH Result Comment: dupl icate Performed By: #### L 400.0001, #### [facility] [address] [place], [address] pH UR Normal 5.0 - 8.0 [facility] Comment on above: Order Comment: CLEAN CATCH Result Comment: dupl icate Performed By: #### L 400.0001, M1.2199 #### [facility] [address] [place], [address] PROT DIPSTX Normal Negative [facility] Comment on above: Order Comment: CLEAN CATCH Result Comment: dupl icate Performed By: #### L 400.0001, M100.0 #### [facility] [address] [place], [address] RBC Normal 0-5 [facility] Comment on above: Order Comment: CLEAN CATCH Result Comment: dupl icate Performed By: #### L 400.0001, M100.2200 #### [facility] [address] [place], [address] SP.GR. DIPSTX Normal 1.002-1.030 [facility] Comment on above: Order Comment: CLEAN CATCH Result Comment: dupl icate Performed By: #### L 400.0001, M100.2200 #### [facility] [address] [place], [address] UR Preservative Normal [facility] Comment on above: Order Comment: CLEAN CATCH Result Comment: dupl icate Performed By: #### L 400.0001, M100.2200 #### [facility] [address] [place], [address] UROBILI Normal Normal [facility] Comment on above: Order Comment: CLEAN CATCH Result Comment: dupl icate Performed By: #### L 400.0001, M100.2200 #### [facility] [address] [place], [address] Urine blood detectionOrdered By: Brody Cleaning on 05-20-2024 Urine Occult Blood 10 /ul High Negative [facility] Urine clarityOrdered By: Hubert Cleaning on 05-20-2024 Clarity (U) Clear Clear [facility] Urine color determinationOrd ered By: Brody Cleaning on 05-20-2024 Color (U) Straw Yellow [facility] Urine cultureOrdered By: Hubert Cleaning on 05-20-2024 Bacteria identified Cx Nom (U) Positive Abnormal [facility] Urine glucose detectionOrder ed By: Brody Cleaning on 05-20-2024 Glucose Ql (U) Normal mg/dl Normal [facility] Urine leukocyte esterase det ection by dipstickOrdered By: Brody Cleaning on 05-20-2024 Leukocyte esterase Test strip Ql (U) 25 /ul High Negative [facility] Urine pHOrdered By: Brody craft on 05-20-2024 pH (U) 7.0 [pH] 5.0 - 8.0 [facility] Urine sediment bacteria coun t by microscopy (number/high power field)Ordered By: Brody Cleaning on 05-20-2024 Bacteria LM.HPF (Urine sed) [#/Area] 0 /[HPF] None Seen [facility] Urine specific gravity measu rementOrdered By: Brody Cleaning on 05-20-2024 Specific gravity (U) [Rel density] 1.005 1.002-1.030 [facility] Urine urobilinogen measureme ntOrdered By: Brody Cleaning on 05-20-2024 Urobilinogen Ql (U) Normal mg/dl Normal [facility] Urobilinogen Ql (U)Ordered B y: Brody Cleaning on 05-20-2024 Urine Urobilinogen Normal mg/dl Normal [facility] White blood cell (WBC) count Ordered By: Brody Cleaning on 05-20-2024 WBC (Bld) [#/Vol] 7.2 10*3/uL 4.4-11.0 [facility] White blood cell countOrdere d By: Brody Cleaning on 05-20-2024 Urine WBC 0-5 SEEN /hpf 0-5 [facility] White blood cell count 0-5 SEEN /hpf 0-5 [facility] hCG Titer Quant., Serumon HCG QUANT. 71716 mIU/mL High <9 non-preg [facility] Comment on above: Result Comment: Gest ational Age 0.2-1 Week: 5-50 mIU/mL 1-2 Weeks: 50-500 mIU/mL 2-3 Weeks: 100-5000 mIU/mL 3-4 Weeks: 500-10,000 mIU/mL 4-5 Weeks:1000-50,000 mIU/mL 5-6 Weeks: 10,000-100,000 mIU/mL 6-8 Weeks: 15,000-200,000 mIU/mL 2-3 Months:10,000-100,000 mIU/mL Performed By: #### L 500.4050, L700.8000, B882-1, L100.0100 #### [facility] [address] [place], [address] POC , URINE - RALSo n 04-08-2024 Beta HCG ( test) Ql (U) Negative Normal Negative [facility] Comment on above: Order Comment: Negat emanuel: Dilute urine specimens, as indicated by a low specific gravity (<1.010) may not contain representitive levels of hCG. If is still suspected, a serum test or repeat urine test using a first morning urine specimen should be considered. Performed By: #### 4 8123 #### [facility] [address] [place], [place] [address] Luis Fernando Sandoval M.D. [id number] TISSUE EXAMon 04-08-2024 TISSUE EXAM Surgical Pathology Report Case: [id number] Authorizing Provider: Pal Booker, Collected: 04/08/2024 11:03 AM Ordering Location: [facility] Surgery Received: 04/08/2024 12:11 PM Center Periop Pathologist: Yris Crowell MD Specimen: Esophagus, distal A. Esophagus, Distal, biopsy: Esophageal squamous epithelium with mild chronic inflammation and reactive changes. Negative for intestinal metaplasia and dysplasia. Epigastric pain [R10.13] Nausea [R11.0] A. Received in formalin, designated Esophagus Biopsy, are 2 white-martínez fragment(s) of tissue measuring 0.5 x 0.3 x 0.3 cm in aggregate. Totally submitted in 1 cassette(s). LM Gross examination performed at: [facility] - [address] [place] [address] Microscopic examination is performed. Normal [facility] Comment on above: Performed By: #### 4 7015 #### [facility] [address] [place], [place] [address] Luis Fernando Sandoval M.D. [id number] Bacteria identifiedon 2023 Bacteria identified Cx Nom (U) Test: Urine Culture Specimen Source: Clean Catch/Voided Specimen Type: Urine Specimen Date: 03/06/2024 1730 Result Date: 03/07/20241937 Result Status: Final result Abnormal: No Resulting Lab: [facility] [address] [facility] [address] CULTURE Clinically insignificant growth based on current clinical standards. Normal [facility] Comment on above: Performed By: #### 6 30-4 #### ELVIRA Cevallos ([id number]) [facility] ([facility]) [id number] [place], [place] [id number] CBC panel Auto (Bld)on 03-06 Erythrocyte distribution width (RBC) [Ratio] 12.4 % 11.5 - 14.5 % [facility] Hematocrit (Bld) [Volume fraction] 41.2 % 36.0 - 46.0 % [facility] Hemoglobin (Bld) [Mass/Vol] 13.8 g/dL 12.0 - 16.0 g/dL [facility] Interpretation and review of laboratory results Normal [facility] MCH (RBC) [Entitic mass] 28.6 pg 26.0 - 34.0 pg [facility] MCHC (RBC) [Mass/Vol] 33.5 g/dL 32.0 - 36.0 g/dL [facility] MCV (RBC) [Entitic vol] 85 fL 80 - 100 fL [facility] Nucleated RBC/100 WBC (Bld) [Ratio] 0 % [facility] Platelets (Bld) [#/Vol] 273 10*3/uL [facility] RBC (Bld) [#/Vol] 4.83 10*6/uL [facility] WBC (Bld) [#/Vol] 9.1 10*3/uL [facility] Erythrocyte distribution width (RBC) [Ratio] 12.4 % Normal 11.5-14.5 [facility] Comment on above: Performed By: #### 5 8410-2 #### JATINDER BURDICK ([id number]) [facility] ([facility]) [address] [place] [address] Hematocrit (Bld) [Volume fraction] 41.2 % Normal 36.0-46.0 [facility] Comment on above: Performed By: #### 5 8410-2 #### JATINDER BURDICK ([id number]) [facility] ([facility]) [address] [place] [address] Hemoglobin (Bld) [Mass/Vol] 13.8 g/dL Normal 12.0-16.0 [facility] Comment on above: Performed By: #### 5 8410-2 #### JATINDER BRUDICK ([id number]) [facility] ([facility]) [address] [place] [address] MCH (RBC) [Entitic mass] 28.6 pg Normal 26.0-34.0 [facility] Comment on above: Performed By: #### 5 8410-2 #### JATINDER BURDICK ([id number]) [facility] ([facility]) [address] [place] [address] MCHC (RBC) [Mass/Vol] 33.5 g/dL Normal 32.0-36.0 [facility] Comment on above: Performed By: #### 5 8410-2 #### JATINDER BURDICK ([id number]) [facility] ([facility]) [address] [place] [address] MCV (RBC) [Entitic vol] 85 fL Normal 80-100 U [facility] Comment on above: Performed By: #### 5 8410-2 #### JATINDER BURDICK ([id number]) [facility] ([facility]) [address] [place] [address] Nucleated RBC/100 WBC (Bld) [Ratio] 0.0 /100 WBCs Normal 0.0-0.0 [facility] Comment on above: Performed By: #### 5 8410-2 #### JATINDER BURDICK ([id number]) [facility] ([facility]) [address] [place] [address] Platelets (Bld) [#/Vol] 273 x10*3/uL Normal 150-450 [facility] Comment on above: Performed By: #### 5 8410-2 #### JATINDER BURDICK ([id number]) [facility] ([facility]) [address] [place] [address] RBC (Bld) [#/Vol] 4.83 x10*6/uL Normal 4.00-5.20 [facility] Comment on above: Performed By: #### 5 8410-2 #### JATINDER BURDICK ([id number]) [facility] ([facility]) [address] [place] [address] WBC (Bld) [#/Vol] 9.1 x10*3/uL Normal 4.4-11.3 [facility] Comment on above: Performed By: #### 5 8410-2 #### JATINDER BURDICK ([id number]) [facility] ([facility]) [facility] [place] [address] CT ABDOMEN PELVIS W IV CONTR Aissatou 03-06-2024 CT ABDOMEN PELVIS W IV CONTRAST STUDY: CT Abdomen and Pelvis with IV Contrast; 03/06/2024, 6:24 PM INDICATION: Nausea, and emesis. COMPARISON: None Available. ACCESSION NUMBER(S): [id number] ORDERING CLINICIAN: AIRANNE TOWNSEND TECHNIQUE: CT of the abdomen and pelvis was performed. Contiguous axial images were obtained at 3 mm slice thickness through the abdomen and pelvis. Coronal and sagittal reconstructions at 3 mm slice thickness were performed. Omnipaque 350, 67 mL was administered intravenously. FINDINGS: LOWER CHEST: No cardiomegaly. No pericardial effusion. Lung bases are clear. ABDOMEN: LIVER: No hepatomegaly. Smooth surface contour. No masses. BILE DUCTS: No intrahepatic or extrahepatic biliary ductal dilatation. GALLBLADDER: The gallbladder is unremarkable. STOMACH: No abnormalities identified. PANCREAS: No masses or ductal dilatation. No acute findings. SPLEEN: No splenomegaly or focal splenic lesion. ADRENAL GLANDS: No thickening or nodules. KIDNEYS AND URETERS: Kidneys are normal in size and location. No renal or ureteral calculi. No hydronephrosis, mass, or perinephric stranding. PELVIS: BLADDER: No abnormalities identified. REPRODUCTIVE ORGANS: No abnormalities identified. BOWEL: No abnormalities identified. The appendix is normal. VESSELS: No abnormalities identified. Abdominal aorta is normal in caliber. PERITONEUM/RETROPERIT ONEUM/LYMPH NODES: No free fluid. No pneumoperitoneum. No lymphadenopathy. ABDOMINAL WALL: No abnormalities identified. SOFT TISSUES: No abnormalities identified. BONES: No acute fracture or aggressive osseous lesion. IMPRESSION: No acute findings. Normal appendix. Signed by Esteban Jones DO [facility] CT Abdomen and Pelvis W eric rasryan Sanjay 03-06-2024 No acute findings. Normal appendix. Signed by Esteban Jones DO TELERADIOLOGY STUDY: CT Abdomen and Pelvis with IV Contrast; 03/06/2024, 6:24 PM INDICATION: Nausea, and emesis. COMPARISON: None Available. ACCESSION NUMBER(S): [id number] ORDERING CLINICIAN: ARIANNE TOWNSEND TECHNIQUE: CT of the abdomen and pelvis was performed. Contiguous axial images were obtained at 3 mm slice thickness through the abdomen and pelvis. Coronal and sagittal reconstructions at 3 mm slice thickness were performed. Omnipaque 350, 67 mL was administered intravenously. FINDINGS: LOWER CHEST: No cardiomegaly. No pericardial effusion. Lung bases are clear. ABDOMEN: LIVER: No hepatomegaly. Smooth surface contour. No masses. BILE DUCTS: No intrahepatic or extrahepatic biliary ductal dilatation. GALLBLADDER: The gallbladder is unremarkable. STOMACH: No abnormalities identified. PANCREAS: No masses or ductal dilatation. No acute findings. SPLEEN: No splenomegaly or focal splenic lesion. ADRENAL GLANDS: No thickening or nodules. KIDNEYS AND URETERS: Kidneys are normal in size and location. No renal or ureteral calculi. No hydronephrosis, mass, or perinephric stranding. PELVIS: BLADDER: No abnormalities identified. REPRODUCTIVE ORGANS: No abnormalities identified. BOWEL: No abnormalities identified. The appendix is normal. VESSELS: No abnormalities identified. Abdominal aorta is normal in caliber. PERITONEUM/RETROPERIT ONEUM/LYMPH NODES: No free fluid. No pneumoperitoneum. No lymphadenopathy. ABDOMINAL WALL: No abnormalities identified. SOFT TISSUES: No abnormalities identified. BONES: No acute fracture or aggressive osseous lesion. TELERADIOLOGY Esteban Jones DO - 03/06/2024 STUDY: CT Abdomen and Pelvis with IV Contrast; 03/06/2024, 6:24 PM INDICATION: Nausea, and emesis. COMPARISON: None Available. ACCESSION NUMBER(S): [id number] ORDERING CLINICIAN: ARIANNE TOWNSEND TECHNIQUE: CT of the abdomen and pelvis was performed. Contiguous axial images were obtained at 3 mm slice thickness through the abdomen and pelvis. Coronal and sagittal reconstructions at 3 mm slice thickness were performed. Omnipaque 350, 67 mL was administered intravenously. FINDINGS: LOWER CHEST: No cardiomegaly. No pericardial effusion. Lung bases are clear. ABDOMEN: LIVER: No hepatomegaly. Smooth surface contour. No masses. BILE DUCTS: No intrahepatic or extrahepatic biliary ductal dilatation. GALLBLADDER: The gallbladder is unremarkable. STOMACH: No abnormalities identified. PANCREAS: No masses or ductal dilatation. No acute findings. SPLEEN: No splenomegaly or focal splenic lesion. ADRENAL GLANDS: No thickening or nodules. KIDNEYS AND URETERS: Kidneys are normal in size and location. No renal or ureteral calculi. No hydronephrosis, mass, or perinephric stranding. PELVIS: BLADDER: No abnormalities identified. REPRODUCTIVE ORGANS: No abnormalities identified. BOWEL: No abnormalities identified. The appendix is normal. VESSELS: No abnormalities identified. Abdominal aorta is normal in caliber. PERITONEUM/RETROPERIT ONEUM/LYMPH NODES: No free fluid. No pneumoperitoneum. No lymphadenopathy. ABDOMINAL WALL: No abnormalities identified. SOFT TISSUES: No abnormalities identified. BONES: No acute fracture or aggressive osseous lesion. IMPRESSION: No acute findings. Normal appendix. Signed by Esteban Jones, [facility] Work Phone: Radiology Study observation (narrative) [facility] Work Phone: CT Abdomen and Pelvis W cont rast IVOrdered By: Esteban Jones on 03-06-2024 [facility] Work Phone: Comprehensive metabolic 2000 panelon 03-06-2024 Albumin BCP dye [Mass/Vol] 4.3 g/dL 3.4 - 5.0 g/dL [facility] ALP [Catalytic activity/Vol] 76 U/L 33 - 110 U/L [facility] ALT With P-5'-P [Catalytic activity/Vol] 19 U/L 7 - 45 U/L [facility] Comment on above: Patients treated wit h Sulfasalazine may generate falsely decreased results for ALT. Anion gap [Moles/Vol] 9 mmol/L Low 10 - 2 0 mmol/L [facility] AST With P-5'-P [Catalytic activity/Vol] 17 U/L 9 - 39 U/L [facility] Bilirubin [Mass/Vol] 0.3 mg/dL 0.0 - 1 .2 mg/dL [facility] Calcium [Mass/Vol] 9 mg/dL 8.6 - 10. 3 mg/dL [facility] Chloride [Moles/Vol] 105 mmol/L 98 - 10 7 mmol/L [facility] CO2 [Moles/Vol] 28 mmol/L 21 - 32 mmol/L [facility] Creatinine [Mass/Vol] 0.64 mg/dL 0.50 - 1.05 mg/dL [facility] eGFR - PINF [facility] Comment on above: Calculations of katelyn mated GFR are performed using the 2020 CKD-EPI Study Refit equation without the race variable for the IDMS-Traceable creatinine methods. https://jasn.asnjournals.org/content/early/ASN.2020 060695 Glucose [Mass/Vol] 85 mg/dL 74 - 99 mg/dL [facility] Interpretation and review of laboratory results Abnormal [facility] Potassium [Moles/Vol] 4 mmol/L 3.5 - 5.3 mmol/L [facility] Protein [Mass/Vol] 7.4 g/dL 6.4 - 8.2 g/dL [facility] Sodium [Moles/Vol] 138 mmol/L 136 - 145 mmol/L [facility] Urea nitrogen [Mass/Vol] 12 mg/dL 6 - 23 mg/dL [facility] Albumin BCP dye [Mass/Vol] 4.3 g/dL Normal 3.4-5.0 [facility] Comment on above: Performed By: #### 2 4323-8 #### JATINDER BURDICK ([id number]) [facility] ([facility]) [address] [place] [address] ALP [Catalytic activity/Vol] 76 U/L Normal 33-110 [facility] Comment on above: Performed By: #### 2 4323-8 #### JATINDER BURDICK ([id number]) [facility] ([facility]) [address] [place] [address] ALT With P-5'-P [Catalytic activity/Vol] 19 U/L Normal 7-45 [facility] Comment on above: Result Comment: Cecilia ents treated with Sulfasalazine may generate falsely decreased results for ALT. Performed By: #### 2 4323-8 #### JATINDER BURDICK ([id number]) [facility] ([facility]) [address] [place] [address] Anion gap [Moles/Vol] 9 mmol/L Low 10-20 [facility] Comment on above: Performed By: #### 2 432-8 #### JATINDER BURDICK ([id number]) [facility] ([facility]) [address] [place] [address] AST With P-5'-P [Catalytic activity/Vol] 17 U/L Normal 9-39 [facility] Comment on above: Performed By: #### 2 432-8 #### JATINDER BURDICK ([id number]) [facility] ([facility]) [address] [place] [address] Bilirubin [Mass/Vol] 0.3 mg/dL Normal 0.0-1.2 [facility] Comment on above: Performed By: #### 2 432-8 #### JATINDER BURDICK ([id number]) [facility] ([facility]) [address] [place] [address] Calcium [Mass/Vol] 9.0 mg/dL Normal 8.6-10.3 [facility] Comment on above: Performed By: #### 2 4323-8 #### JATINDER BURDICK ([id number]) [facility] ([facility]) [address] [place] [address] Chloride [Moles/Vol] 105 mmol/L Normal 98-107 [facility] Comment on above: Performed By: #### 2 4323-8 #### JATINDER BURDICK ([id number]) [facility] ([facility]) [address] [place] [address] CO2 [Moles/Vol] 28 mmol/L Normal 21-32 [facility] Comment on above: Performed By: #### 2 4323-8 #### JATINDER BURDICK ([id number]) [facility] ([facility]) [address] [place] [address] Creatinine [Mass/Vol] 0.64 mg/dL Normal 0.50-1.05 [facility] Comment on above: Performed By: #### 2 4323-8 #### JATINDER BURDICK ([id number]) [facility] ([facility]) [address] [place] [address] GFR/1.73 sq M.predicted MDRD (S/P/Bld) [Vol rate/Area] mL/min/{1.73_m2} Normal >60 [facility] Comment on above: Result Comment: Calc ulations of estimated GFR are performed using the 2020 CKD-EPI Study Refit equation without the race variable for the IDMS-Traceable creatinine methods. https://jasn.asnjournals.org/content/early/ASN.2020 880448 Performed By: #### 2 4323-8 #### JATINDER BURDICK ([id number]) [facility] ([facility]) [address] [place] [address] Glucose [Mass/Vol] 85 mg/dL Normal 74-99 [facility] Comment on above: Performed By: #### 2 4323-8 #### JATINDER BURDICK ([id number]) [facility] ([facility]) [address] [place] [address] Potassium [Moles/Vol] 4.0 mmol/L Normal 3.5-5.3 [facility] Comment on above: Performed By: #### 2 4323-8 #### JATINDER BURDICK ([id number]) [facility] ([facility]) [address] [place] [address] Protein [Mass/Vol] 7.4 g/dL Normal 6.4-8.2 [facility] Comment on above: Performed By: #### 2 4323-8 #### JATINDER BURDICK ([id number]) [facility] ([facility]) [address] [place] [address] Sodium [Moles/Vol] 138 mmol/L Normal 136-145 [facility] Comment on above: Performed By: #### 2 4323-8 #### JATINDER BURDICK ([id number]) [facility] ([facility]) [address] [place] [address] Urea nitrogen [Mass/Vol] 12 mg/dL Normal 6-23 [facility] Comment on above: Performed By: #### 2 4323-8 #### JATINDER BURDICK ([id number]) [facility] ([facility]) [address] [place] [address] HCG ( test) IA.rapi d Ql (U)Ordered By: Kanu Edward on 03-06-2024 HCG ( test) Ql (U) Negative NEGATIVE [facility] Interpretation and review of laboratory results Normal [facility] HCG ( test) IA.rapi d Ql (U)on 03-06-2024 HCG ( test) Ql (U) Negative Normal NEGATIVE [facility] Comment on above: Performed By: #### 8 0384-1 #### JATINDER BURDICK ([id number]) [facility] ([facility]) [address] [place] [address] Lipaseon 03-06-2024 Lipase [Catalytic activity/Vol] 46 U/L - U/L [facility] Lipase [Catalytic activity/V ol]on 03-06-2024 Interpretation and review of laboratory results Normal [facility] Venipuncture immediately after or during the administration of Metamizole may lead to falsely low results. Testing should be performed immediately prior to Metamizole dosing. [facility] No Panel Informationon 03-06 Extra Tube Hold for add-ons. [facility] Comment on above: Auto resulted. [facility] Interpretation and review of laboratory results Abnormal [facility] Triacylglycerol lipaseon Lipase [Catalytic activity/Vol] 46 U/L Normal [facility] Comment on above: Order Comment: Venip uncture immediately after or during the administration of Metamizole may lead to falsely low results. Testing should be performed immediately prior to Metamizole dosing. Performed By: #### 3 040-3 #### JATINDER BURDICK ([id number]) [facility] ([facility]) [address] [place] [address] Urinalysis complete W Reflex Culture panel (U)on 03-06-2024 Appearance (U) Clear Clear [facility] Bilirubin (U) [Mass/Vol] Negative NEGATIVE [facility] Color (U) Light-Yellow Light-Yellow , Yellow, Dark-Yellow [facility] Glucose Auto test strip (U) [Mass/Vol] Normal Normal mg/dL [facility] Ketones (U) [Mass/Vol] Negative NEGAT EMANUEL mg/dL [facility] Leukocyte esterase Auto test strip Ql (U) 75 Clarisa/ L Abnormal NEGATIVE [facility] Nitrite Auto test strip Ql (U) Negative NEGATIVE [facility] pH (U) 6 [pH] 5.0, 5.5, 6.0, 6.5, 7.0, 7.5, 8.0 [facility] Protein (U) [Mass/Vol] Negative NEGAT EMANUEL, 10 (TRACE), 20 (TRACE) mg/dL [facility] RBC (U) [#/Vol] 0.2 (2+) Abnormal NEGATIVE [facility] Specific gravity (U) [Rel density] 1.021 1.005 - 1.035 [facility] Urobilinogen (U) [Mass/Vol] Normal Normal mg/dL [facility] Appearance (U) Clear Normal Clear [facility] Comment on above: Performed By: #### 5 8077-9 #### JATINDER BURDICK ([id number]) [facility] ([facility]) [address] [place] [address] Bilirubin (U) [Mass/Vol] Negative Normal NEGATIVE [facility] Comment on above: Performed By: #### 5 8077-9 #### JATINDER BURDICK ([id number]) [facility] ([facility]) [address] [place] [address] Color (U) Light-Yellow Normal Light-Yellow , Yellow, Dark-Yellow [facility] Comment on above: Performed By: #### 5 8077-9 #### JATINDER BURDICK ([id number]) [facility] ([facility]) [address] [place] [address] 97790 Glucose Auto test strip (U) [Mass/Vol] Normal Normal Normal [facility] Comment on above: Performed By: #### 5 8077-9 #### JATINDER BURDICK ([id number]) [facility] ([facility]) [address] [place] [address] 90020 Ketones (U) [Mass/Vol] Negative Normal NEGATIVE [facility] on above: Performed By: #### 5 8077-9 #### JATINDER BURDICK ([id number]) [facility] ([facility]) [address] [place] [address] 15150 Leukocyte esterase Auto test strip Ql (U) 75 Clarisa/???L Abnormal NEGATIVE [facility] Comment on above: Performed By: #### 5 8077-9 #### JATINDER BURDICK ([id number]) [facility] ([facility]) [address] [place] [address] 80147 Nitrite Auto test strip Ql (U) Negative Normal NEGATIVE [facility] Comment on above: Performed By: #### 5 8077-9 #### JATINDER BURDICK ([id number]) [facility] ([facility]) [address] [place] [address] 95977 pH (U) 6.0 [pH] Normal 5.0, 5.5, 6.0, 6.5, 7.0, 7.5, 8.0 [facility] Comment on above: Performed By: #### 5 8077-9 #### JATINDER BURDICK ([id number]) [facility] ([facility]) [address] [place] [address] 59552 Protein (U) [Mass/Vol] Negative Normal NEGAT EMANUEL, 10 (TRACE), 20 (TRACE) [facility] Comment on above: Performed By: #### 5 8077-9 #### JATINDER BURDICK ([id number]) [facility] ([facility]) [address] [place] [address] RBC (U) [#/Vol] 0.2 (2+) Abnormal NEGATIVE [facility] Comment on above: Performed By: #### 5 8077-9 #### JATINDER BURDICK ([id number]) [facility] ([facility]) [address] [place] [address] Specific gravity (U) [Rel density] 1.021 Normal 1.005-1.035 [facility] Comment on above: Performed By: #### 5 8077-9 #### JATINDER BURDICK ([id number]) [facility] ([facility]) [address] [place] [address] Urobilinogen (U) [Mass/Vol] Normal Normal Normal [facility] Comment on above: Performed By: #### 5 8077-9 #### JATINDER BURDICK ([id number]) [facility] ([facility]) [address] [place] [address] Urinalysis microscopic panel Auto Ql (U)on 03-06-2024 Bacteria Auto (Urine sed) [#/Area] 1+ Abnormal NONE SEEN /HPF [facility] Epithelial cells.squamous Auto (Urine sed) [#/Area] 1-9 (SPARSE) Reference range not established. /HPF [facility] Mucus Auto (Urine sed) [#/Area] FEW Reference range not established. /LPF [facility] RBC Auto (Urine sed) [#/Area] 6-10 Abnormal NONE, 1-2, 3-5 /HPF [facility] WBC Auto (Urine sed) [#/Area] 1-5 1-5, NONE /HPF [facility] Bacteria Auto (Urine sed) [#/Area] 1+ /HPF Abnormal NONE SEEN [facility] Comment on above: Performed By: #### 5 3315-8 #### JATINDER BURDICK ([id number]) [facility] ([facility]) [address] [place] [address] Epithelial cells.squamous Auto (Urine sed) [#/Area] 1-9 (SPARSE) Normal Reference range not established. [facility] Comment on above: Performed By: #### 5 3315-8 #### JATINDER BURDICK ([id number]) [facility] ([facility]) [address] [place] [address]372 Mucus Auto (Urine sed) [#/Area] FEW Normal Reference range not established. [facility] Comment on above: Performed By: #### 5 3315-8 #### JATINDER BURDICK ([id number]) [facility] ([facility]) [address] [place] [address] 66230 RBC Auto (Urine sed) [#/Area] 6-10 Abnormal NONE, 1-2, 3-5 [facility] Comment on above: Performed By: #### 5 3315-8 #### JATINDER BURDICK ([id number]) [facility] ([facility]) [address] [place] [address] 92520 WBC Auto (Urine sed) [#/Area] 1-5 Normal 1-5, NONE [facility] Comment on above: Performed By: #### 5 3315-8 #### JATINDER BURDICK ([id number]) [facility] ([facility]) [address] [place] [address] 46440 CBC W Auto Differential pane l (Bld)on 11-30-2023 Basophils (Bld) [#/Vol] 0.05 x10*3/uL Normal 0.00-0.10 [facility] Comment on above: Performed By: #### 5 7021-8 #### JATINDER BURDICK ([id number]) [facility] ([facility]) [address] [place], [place] [address] Basophils/100 WBC (Bld) 0.7 % Normal 0.0-2.0 [facility] Comment on above: Performed By: #### 5 7021-8 #### JATINDER BURDICK ([id number]) [facility] ([facility]) [address] [place], [place] [address] Eosinophils (Bld) [#/Vol] 0.23 x10*3/uL Normal 0.00-0.70 [facility] Comment on above: Performed By: #### 5 7021-8 #### JATINDER BURDICK ([id number]) [facility] ([facility]) [address] [place] [address] 80571 Eosinophils/100 WBC (Bld) 3.2 % Normal 0.0-6.0 [facility] Comment on above: Performed By: #### 5 7021-8 #### JATINDER BURDICK ([id number]) [facility] ([facility]) [address] [place] [address] 53065 Erythrocyte distribution width (RBC) [Ratio] 14.6 % High 11.5-14.5 [facility] Comment on above: Performed By: #### 5 7021-8 #### JATINDER BURDICK ([id number]) [facility] ([facility]) [address] [place] [address] 56114 Hematocrit (Bld) [Volume fraction] 43.1 % Normal 36.0-46.0 [facility] Comment on above: Performed By: #### 5 7021-8 #### JATINDER BURDICK ([id number]) [facility] ([facility]) [address] [place] [address] 25980 Hemoglobin (Bld) [Mass/Vol] 13.6 g/dL Normal 12.0-16.0 [facility] Comment on above: Performed By: #### 5 7021-8 #### JATINDER BURDICK ([id number]) [facility] ([facility]) [address] [place] [address] 94252 Immature granulocytes (Bld) [#/Vol] 0.02 x10*3/uL Normal 0.00-0.70 [facility] Comment on above: Performed By: #### 5 7021-8 #### JATINDER BURDICK ([id number]) [facility] ([facility]) [address] [place] [address] 43943 Immature granulocytes/100 WBC (Bld) 0.3 % Normal 0.0-0.9 [facility] Comment on above: Result Comment: Carole ture Granulocyte Count (IG) includes promyelocytes, myelocytes and metamyelocytes but does not include bands. Percent differential counts (%) should be interpreted in the context of the absolute cell counts (cells/UL). Performed By: #### 5 7021-8 #### JATINDER BURDICK ([id number]) [facility] ([facility]) [address] [place] [address] 68153 Lymphocytes (Bld) [#/Vol] 2.64 x10*3/uL Normal 1.20-4.80 [facility] Comment on above: Performed By: #### 7021-8 #### JATINDER BURDICK ([id number]) [facility] ([facility]) [address] [place] [address] 48093 Lymphocytes/100 WBC (Bld) 36.6 % Normal 13.0-44.0 [facility] Comment on above: Performed By: #### 5 7021-8 #### JATINDER BURDICK ([id number]) [facility] ([facility]) [address] [place] [address] 28444 MCH (RBC) [Entitic mass] 26.7 pg Normal 26.0-34.0 [facility] Comment on above: Performed By: #### 5 7021-8 #### JATINDER BURDICK ([id number]) [facility] ([facility]) [address] [place] [address] 36758 MCHC (RBC) [Mass/Vol] 31.6 g/dL Low 32.0-36.0 [facility] Comment on above: Performed By: #### 5 7021-8 #### JATINDER BURDICK ([id number]) [facility] ([facility]) [address] [place] [address] 68543 MCV (RBC) [Entitic vol] 85 fL Normal 80-100 [facility] Comment on above: Performed By: #### 5 7021-8 #### JATINDER BURDICK ([id number]) [facility] ([facility]) [address] [place] [address] 79910 Monocytes (Bld) [#/Vol] 0.47 x10*3/uL Normal 0.10-1.00 [facility] Comment on above: Performed By: #### 5 7021-8 #### JATINDER BURDICK ([id number]) [facility] ([facility]) [address] [place] [address] 71818 Monocytes/100 WBC (Bld) 6.5 % Normal 2.0-10.0 [facility] Comment on above: Performed By: #### 5 7021-8 #### JATINDER BURDICK ([id number]) [facility] ([facility]) [address] [place] [address] 02035 Neutrophils (Bld) [#/Vol] 3.80 x10*3/uL Normal 1.20-7.70 [facility] Comment on above: Result Comment: Perc ent differential counts (%) should be interpreted in the context of the absolute cell counts (cells/uL). Performed By: #### 5 7021-8 #### JATINDER BURDICK ([id number]) [facility] ([facility]) [address] [place] [address] 73445 Neutrophils/100 WBC (Bld) 52.7 % Normal 40.0-80.0 [facility] Comment on above: Performed By: #### 5 7021-8 #### JATINDER BURDICK ([id number]) [facility] ([facility]) [address] [place] [address] 96401 Nucleated RBC/100 WBC (Bld) [Ratio] 0.0 /100 WBCs Normal 0.0-0.0 [facility] Comment on above: Performed By: #### 5 7021-8 #### JATINDER BURDICK ([id number]) [facility] ([facility]) [address] [place] [address] 19675 Platelets (Bld) [#/Vol] 301 x10*3/uL Normal 150-450 [facility] Comment on above: Performed By: #### 5 7021-8 #### JATINDER BURDICK ([id number]) [facility] ([facility]) [address] [place] [address] 78760 RBC (Bld) [#/Vol] 5.10 x10*6/uL Normal 4.00-5.20 [facility] Comment on above: Performed By: #### 5 7021-8 #### JATINDER BURDICK ([id number]) [facility] ([facility]) [address] [place] [address] 08125 WBC (Bld) [#/Vol] 7.2 x10*3/uL Normal 4.4-11.3 [facility] Comment on above: Performed By: #### 5 7021-8 #### JATINDER BURDICK ([id number]) [facility] ([facility]) [address] [place] [address] 80419 Calcidiolon 11-30-2023 25-hydroxyvitamin D3 [Mass/Vol] 30 ng/mL Normal 30-100 [facility] Comment on above: Order Comment: Defic iency: < 20 ng/mlInsufficiency: 20-29 ng/mlSufficiency: 30-100 ng/mlThis assay accurately quantifies the sum of Vitamin D3, 25-Hydroxy and Vitamin D2,25-Hydroxy. Performed By: #### 2 4331-1 #### JATINDER BURDICK ([id number]) [facility] ([facility]) [address] [place] [address] 95030 Ferritinon 11-30-2023 Ferritin [Mass/Vol] 20 ng/mL Normal 8-150 [facility] Comment on above: Performed By: #### 2 276-4 #### JATINDER BURDICK ([id number]) [facility] ([facility]) [address] [place] [address] 76500 Iron and Iron binding capaci ty panelon 11-30-2023 Iron [Mass/Vol] 62 ug/dL Normal 35-150 [facility] Comment on above: Performed By: #### 5 0190-8 #### JATINDER BURDICK ([id number]) [facility] ([facility]) [address] [place] [address] 75404 Iron binding capacity [Mass/Vol] 365 ug/dL Normal 240-445 [facility] Comment on above: Performed By: #### 5 0190-8 #### JATINDER BURDICK ([id number]) [facility] ([facility]) [address] [place] [address] 23473 Iron binding capacity.unsaturated [Mass/Vol] 303 ug/dL Normal 110-370 [facility] Comment on above: Performed By: #### 5 0190-8 #### JATINDER BURDICK ([id number]) [facility] ([facility]) [address] [place] [address] 33031 Iron saturation [Mass fraction] 17 % Low 25-45 [facility] Comment on above: Performed By: #### 5 0190-8 #### JATINDER BURDICK ([id number]) [facility] ([facility]) [address] [place] [address] 32506 CBC W Auto Differential pane l (Bld)on 09-11-2023 Basophils (Bld) [#/Vol] 0.04 x10*3/uL Normal 0.00-0.10 [facility] Comment on above: Performed By: #### 5 7021-8 #### JATINDER BURDICK ([id number]) [facility] ([facility]) [address] [place] [address] 81959 Basophils/100 WBC (Bld) 0.6 % Normal 0.0-2.0 [facility] Comment on above: Performed By: #### 5 7021-8 #### JATINDER BURDICK ([id number]) [facility] ([facility]) [address] [place] [address] 60642 Eosinophils (Bld) [#/Vol] 0.18 x10*3/uL Normal 0.00-0.70 [facility] Comment on above: Performed By: #### 5 7021-8 #### JATINDER BURDICK ([id number]) [facility] ([facility]) [address] [place] [address] 87958 Eosinophils/100 WBC (Bld) 2.8 % Normal 0.0-6.0 [facility] Comment on above: Performed By: #### 5 7021-8 #### JATINDER BURDICK ([id number]) [facility] ([facility]) [address] [place] [address] 81771 Erythrocyte distribution width (RBC) [Ratio] 14.2 % Normal 11.5-14.5 [facility] Comment on above: Performed By: #### 5 7021-8 #### JATINDER BURDICK ([id number]) [facility] ([facility]) [address] [place] [address] Hematocrit (Bld) [Volume fraction] 39.9 % Normal 36.0-46.0 [facility] Comment on above: Performed By: #### 5 7021-8 #### JATINDER BURDICK ([id number]) [facility] ([facility]) [address] [place] [address] 06943 Hemoglobin (Bld) [Mass/Vol] 12.4 g/dL Normal 12.0-16.0 [facility] Comment on above: Performed By: #### 5 7021-8 #### JATINDER BURDICK ([id number]) [facility] ([facility]) [address] [place] [address] 44236 Immature granulocytes (Bld) [#/Vol] 0.01 x10*3/uL Normal 0.00-0.70 [facility] Comment on above: Performed By: #### 5 7021-8 #### JATINDER BURDICK ([id number]) [facility] ([facility]) [address] [place] [address] 80265 Immature granulocytes/100 WBC (Bld) 0.2 % Normal 0.0-0.9 [facility] Comment on above: Result Comment: Carole ture Granulocyte Count (IG) includes promyelocytes, myelocytes and metamyelocytes but does not include bands. Percent differential counts (%) should be interpreted in the context of the absolute cell counts (cells/UL). Performed By: #### 5 7021-8 #### JATINDER BURDICK ([id number]) [facility] ([facility]) [address] [place] [address] 33512 Lymphocytes (Bld) [#/Vol] 2.22 x10*3/uL Normal 1.20-4.80 [facility] Comment on above: Performed By: #### 5 7021-8 #### JATINDER BURDICK ([id number]) [facility] ([facility]) [address] [place] [address] 11779 Lymphocytes/100 WBC (Bld) 34.0 % Normal 13.0-44.0 [facility] Comment on above: Performed By: #### 5 7021-8 #### JATINDER BURDICK ([id number]) [facility] ([facility]) [address] [place] [address] 71528 MCH (RBC) [Entitic mass] 25.3 pg Low 26.0-34.0 [facility] Comment on above: Performed By: #### 5 7021-8 #### JATINDER BURDICK ([id number]) [facility] ([facility]) [address] [place] [address] 51330 MCHC (RBC) [Mass/Vol] 31.1 g/dL Low 32.0-36.0 [facility] Comment on above: Performed By: #### 5 7021-8 #### JATINDER BURDICK ([id number]) [facility] ([facility]) [address] [place] [address] 48092 MCV (RBC) [Entitic vol] 81 fL Normal 80-100 [facility] Comment on above: Performed By: #### 5 7021-8 #### JATINDER BURDICK ([id number]) [facility] ([facility]) [address] [place] [address] 44224 Monocytes (Bld) [#/Vol] 0.39 x10*3/uL Normal 0.10-1.00 [facility] Comment on above: Performed By: #### 5 7021-8 #### JATINDER BURDICK ([id number]) [facility] ([facility]) [address] [place] [address] 21527 Monocytes/100 WBC (Bld) 6.0 % Normal 2.0-10.0 [facility] Comment on above: Performed By: #### 5 7021-8 #### JATINDER BURDICK ([id number]) [facility] ([facility]) [address] [place] [address] 15837 Neutrophils (Bld) [#/Vol] 3.68 x10*3/uL Normal 1.20-7.70 [facility] Comment on above: Result Comment: Perc ent differential counts (%) should be interpreted in the context of the absolute cell counts (cells/uL). Performed By: #### 5 7021-8 #### JATINDER BURDICK ([id number]) [facility] ([facility]) [address] [place] [address] 62494 Neutrophils/100 WBC (Bld) 56.4 % Normal 40.0-80.0 [facility] Comment on above: Performed By: #### 5 7021-8 #### JATINDER BURDICK ([id number]) [facility] ([facility]) [address] [place] [address] 87679 Nucleated RBC/100 WBC (Bld) [Ratio] 0.0 /100 WBCs Normal 0.0-0.0 [facility] Comment on above: Performed By: #### 5 7021-8 #### JATINDER BURDICK ([id number]) [facility] ([facility]) [address] [place] [address] 00582 Platelets (Bld) [#/Vol] 308 x10*3/uL Normal 150-450 [facility] Comment on above: Performed By: #### 5 7021-8 #### JATINDER BURDICK ([id number]) [facility] ([facility]) [address] [place] [address] 29091 RBC (Bld) [#/Vol] 4.91 x10*6/uL Normal 4.00-5.20 [facility] Comment on above: Performed By: #### 5 7021-8 #### JATINDER BURDICK ([id number]) [facility] ([facility]) [address] [place] [address] 06215 WBC (Bld) [#/Vol] 6.5 x10*3/uL Normal 4.4-11.3 [facility] Comment on above: Performed By: #### 5 7021-8 #### JATINDER BURDICK ([id number]) [facility] ([facility]) [address] [place] [address] 98481 Calcidiolon 09-11-2023 25-hydroxyvitamin D3 [Mass/Vol] 21 ng/mL Low 30-100 [facility] Comment on above: Order Comment: Defic iency: < 20 ng/ml Insufficiency: 20-29 ng/ml Sufficiency: 30-100 ng/ml This assay accurately quantifies the sum of Vitamin D3, 25-Hydroxy and Vitamin D2,25-Hydroxy. Performed By: #### 1 989-3 #### JATINDER BURDICK ([id number]) [facility] ([facility]) [facility] [place] [address] Comprehensive metabolic 2000 panelon 09-11-2023 Albumin BCP dye [Mass/Vol] 4.2 g/dL Normal 3.4-5.0 [facility] Comment on above: Performed By: #### 2 4323-8 #### JATINDER BURDICK ([id number]) [facility] ([facility]) [address] [place] [address] 03398 ALP [Catalytic activity/Vol] 80 U/L Normal 33-110 [facility] Comment on above: Performed By: #### 2 4323-8 #### JATINDER BURDICK ([id number]) [facility] ([facility]) [address] [place] [address] 03771 ALT With P-5'-P [Catalytic activity/Vol] 19 U/L Normal 7-45 [facility] Comment on above: Result Comment: Cecilia ents treated with Sulfasalazine may generate falsely decreased results for ALT. Performed By: #### 2 4323-8 #### JATINDER BURDICK ([id number]) [facility] ([facility]) [address] [place] [address] 61272 Anion gap [Moles/Vol] 10 mmol/L Normal 10-20 [facility] Comment on above: Performed By: #### 2 4323-8 #### JATINDER BURDICK ([id number]) [facility] ([facility]) [address] [place] [address] 80113 AST With P-5'-P [Catalytic activity/Vol] 17 U/L Normal 9-39 [facility] Comment on above: Performed By: #### 2 4323-8 #### JATINDER BURDICK ([id number]) [facility] ([facility]) [address] [place] [address] 28701 Bilirubin [Mass/Vol] 0.4 mg/dL Normal 0.0-1.2 [facility] Comment on above: Performed By: #### 2 4323-8 #### JATINDER BURDICK ([id number]) [facility] ([facility]) [address] [place] [address] Calcium [Mass/Vol] 9.1 mg/dL Normal 8.6-10.3 [facility] Comment on above: Performed By: #### 2 4323-8 #### JATINDER BURDICK ([id number]) [facility] ([facility]) [address] [place] [address] Chloride [Moles/Vol] 104 mmol/L Normal 98-107 [facility] Comment on above: Performed By: #### 2 4323-8 #### JATINDER BURDICK ([id number]) [facility] ([facility]) [address] [place] [address] 76674 CO2 [Moles/Vol] 28 mmol/L Normal 21-32 [facility] Comment on above: Performed By: #### 2 4323-8 #### JATINDER BURDICK ([id number]) [facility] ([facility]) [address] [place] [address] 24813 Creatinine [Mass/Vol] 0.77 mg/dL Normal 0.50-1.05 [facility] Comment on above: Performed By: #### 2 4323-8 #### JATINDER BURDICK ([id number]) [facility] ([facility]) [address] [place] [address] 19198 GFR/1.73 sq M.predicted MDRD (S/P/Bld) [Vol rate/Area] mL/min/{1.73_m2} Normal >60 [facility] Comment on above: Result Comment: Calc ulations of estimated GFR are performed using the 2020 CKD-EPI Study Refit equation without the race variable for the IDMS-Traceable creatinine methods. https://jasn.asnjournals.org/content/early/ASN.2020 596793 Performed By: #### 2 4323-8 #### JATINDER BURDICK ([id number]) [facility] ([facility]) [address] [place] [address] 71243 Glucose [Mass/Vol] 91 mg/dL Normal 74-99 [facility] Comment on above: Performed By: #### 2 4323-8 #### JATINDER BURDICK ([id number]) [facility] ([facility]) [address] [place] [address] 50939 Potassium [Moles/Vol] 4.0 mmol/L Normal 3.5-5.3 [facility] Comment on above: Performed By: #### 2 4323-8 #### JATINDER BURDICK ([id number]) [facility] ([facility]) [address] [place] [address] 12487 Protein [Mass/Vol] 6.7 g/dL Normal 6.4-8.2 [facility] Comment on above: Performed By: #### 2 4323-8 #### JATINDER BURDICK ([id number]) [facility] ([facility]) [address] [place] [address] 39404 Sodium [Moles/Vol] 138 mmol/L Normal 136-145 [facility] Comment on above: Performed By: #### 2 4323-8 #### JATINDER BURDICK ([id number]) [facility] ([facility]) [address] [place] [address] 59095 Urea nitrogen [Mass/Vol] 8 mg/dL Normal 6-23 [facility] Comment on above: Performed By: #### 2 4323-8 #### JATINDER BURDICK ([id number]) [facility] ([facility]) [address] [place] [address] 37644 Ferritinon 09-11-2023 Ferritin [Mass/Vol] 9 ng/mL Normal 8-150 [facility] Comment on above: Performed By: #### 2 276-4 #### JATINDER BURDICK ([id number]) [facility] ([facility]) [address] [place] [address] 53979 HbA1c (Bld) [Mass fraction]o n 09-11-2023 Average glucose Estimated from glycated hemoglobin (Bld) [Mass/Vol] 111 mg/dL Normal Not Established [facility] Comment on above: Order Comment: Diagn osis of Diabetes-Adults Non-Diabetic: < or = 5.6% Increased risk for developing diabetes: 5.7-6.4% Diagnostic of diabetes: > or = 6.5% Performed By: #### 4 548-4 #### JATINDER BURDICK ([id number]) [facility] ([facility]) [address] [place] [address] 59311 Hemoglobin A1c/Hemoglobin.to marko 09-11-2023 HbA1c (Bld) [Mass fraction] 5.5 % Normal see below [facility] Comment on above: Order Comment: Diagn osis of Diabetes-Adults Non-Diabetic: < or = 5.6% Increased risk for developing diabetes: 5.7-6.4% Diagnostic of diabetes: > or = 6.5% Performed By: #### 4 548-4 #### JATINDER BURDICK ([id number]) [facility] ([facility]) [address] [place] [address] 36646 Iron and Iron binding capaci ty panelon 09-11-2023 Iron [Mass/Vol] 75 ug/dL Normal 35-150 [facility] Comment on above: Performed By: #### 5 0190-8 #### JATINDER BURDICK ([id number]) [facility] ([facility]) [address] [place] [address] 38827 Iron binding capacity [Mass/Vol] 409 ug/dL Normal 240-445 [facility] Comment on above: Performed By: #### 5 0190-8 #### JATINDER BURDICK ([id number]) [facility] ([facility]) [address] [place] [address] 18584 Iron binding capacity.unsaturated [Mass/Vol] 334 ug/dL Normal 110-370 [facility] Comment on above: Performed By: #### 5 0190-8 #### JATINDER BURDICK ([id number]) [facility] ([facility]) [address] [place] [address] 02775 Iron saturation [Mass fraction] 18 % Low 25-45 [facility] Comment on above: Performed By: #### 5 0190-8 #### JATINDER BURDICK ([id number]) [facility] ([facility]) [address] [place] [address] 83686 Lipid 1996 panelon Cholesterol [Mass/Vol] 172 mg/dL Normal 0-199 Un [facility] Comment on above: Result Comment: Age Desirable Borderline High High 0-19 Y 0 - 169 170 - 199 >/= 200 20-24 Y 0 - 189 190 - 224 >/= 225 >24 Y 0 - 199 200 - 239 >/= 240 All ranges are based on fasting samples. Specific therapeutic targets will vary based on patient-specific cardiac risk. Pediatric guidelines reference:Pediatrics 2011, 128(S5).Adult guidelines reference: NCEP ATPIII Guidelines,LILY 2001, 258:2486-97 Venipuncture immediately after or during the administration of Metamizole may lead to falsely low results. Testing should be performed immediately prior to Metamizole dosing. Performed By: #### 2 4331-1 #### JATINDER BURDICK ([id number]) [facility] ([facility]) [address] [place] [address] 70261 Cholesterol in HDL [Mass/Vol] 49.0 mg/dL Normal [facility] Comment on above: Result Comment: Age Very Low Low Normal High 0-19 Y < 35 < 40 40-45 ---- 20-24 Y ---- < 40 >45 ---- >24 Y ---- < 40 40-60 >60 Performed By: #### 2 4331-1 #### JATINDER BURDICK ([id number]) [facility] ([facility]) [address] [place] [address] 10261 Cholesterol in LDL [Mass/Vol] 101 mg/dL Normal <=119 [facility] Comment on above: Result Comment: Near Borderline AGE Desirable Optimal High High Very High 0-19 Y 0 - 109 --- 110-129 >/= 130 ---- 20-24 Y 0 - 119 --- 120-159 >/= 160 ---- >24 Y 0 - 99 100-129 130-159 160-189 >/=190 Performed By: #### 2 4331-1 #### JATINDER BURDICK ([id number]) [facility] ([facility]) [address] [place] [address] 68837 Cholesterol in VLDL [Mass/Vol] 22 mg/dL Normal 0-40 [facility] Comment on above: Performed By: #### 2 4331-1 #### JATINDER BURDICK ([id number]) [facility] ([facility]) [address] [place] [address] 39633 CHOLESTEROL/HDL RATIO 3.5 Normal [facility] Comment on above: Result Comment: Ref Values Desirable < 3.4 High Risk > 5.0 Performed By: #### 2 4331-1 #### JATINDER BURDICK ([id number]) [facility] ([facility]) [address] [place] [address] 69301 NON HDL CHOLESTEROL 123 mg/dL Normal 0-149 [facility] Comment on above: Result Comment: Age Desirable Borderline High High Very High 0-19 Y 0 - 119 120 - 144 >/= 145 >/= 160 20-24 Y 0 - 149 150 - 189 >/= 190 ---- >24 Y 30 mg/dL above LDL Cholesterol goal Performed By: #### 2 4331-1 #### JATINDER BURDICK ([id number]) [facility] ([facility]) [address] [place], [place] [address] Triglyceride [Mass/Vol] 112 mg/dL Normal 0-149 [facility] Comment on above: Result Comment: Age Desirable Borderline High High Very High 0 D-90 D 19 - 174 ---- ---- ---- 91 D- 9 Y 0 - 74 75 - 99 >/= 100 ---- 10-19 Y 0 - 89 90 - 129 >/= 130 ---- 20-24 Y 0 - 114 115 - 149 >/= 150 ---- >24 Y 0 - 149 150 - 199 200- 499 >/= 500 Venipuncture immediately after or during the administration of Metamizole may lead to falsely low results. Testing should be performed immediately prior to Metamizole dosing. Performed By: #### 2 4331-1 #### JATINDER BURDICK ([id number]) [facility] ([facility]) [address] [place] [address] 85203 Carboxy tetrahydrocannabinol (U) [Mass/Vol]on 05-19-2023 [facility] THC (Marijuana), Urine, Conf irmationon 05-19-2023 Carboxy tetrahydrocannabinol (U) [Mass/Vol] 25 ng/mL [facility] Comment on above: INTERPRETIVE INFORMA TION: THC Metabolite, Urine, Quantitative Methodology: Quantitative Liquid Chromatography-Tandem Mass Spectrometry Positive cutoff: 15 ng/mL For medical purposes only; not valid for forensic use. The drug analyte detected in this assay, 9-carboxy THC, is a metabolite of pyxod-1-pnjlgaxpoytbqileiyyn (THC). Detection of 9-carboxy THC suggests use of, or exposure to, a product containing THC. This test cannot distinguish between prescribed or non-prescribed forms of THC, nor can it distinguish between active or passive use. The 9-carboxy THC metabolite can be detected in urine for several weeks. Normalization of results to creatinine concentration can help document elimination or suggest recent use, when specimens are collected at least one week apart. This test was developed and its performance characteristics determined by [facility]. It has not been cleared or approved by the [place] Food and Drug Administration. This test was performed in a CLIA certified laboratory and is intended for clinical purposes. Performed By: [facility] [address] [place] [address] Pbx Manager: Luis Fernando Paz MD, PhD CLIA Number: [id number] Carboxy tetrahydrocannabinol on 05-15-2023 Carboxy tetrahydrocannabinol (U) [Mass/Vol] 25 ng/mL [facility] Comment on above: Result Comment: INTE RPRETIVE INFORMATION: THC Metabolite, Urine, Quantitative Methodology: Quantitative Liquid Chromatography-Tandem Mass Spectrometry Positive cutoff: 15 ng/mL For medical purposes only; not valid for forensic use. The drug analyte detected in this assay, 9-carboxy THC, is a metabolite of avclk-9-votmvfqccmjrhfaykzfa (THC). Detection of 9-carboxy THC suggests use of, or exposure to, a product containing THC. This test cannot distinguish between prescribed or non-prescribed forms of THC, nor can it distinguish between active or passive use. The 9-carboxy THC metabolite can be detected in urine for several weeks. Normalization of results to creatinine concentration can help document elimination or suggest recent use, when specimens are collected at least one week apart. This test was developed and its performance characteristics determined by [facility]. It has not been cleared or approved by the [place] Food and Drug Administration. This test was performed in a CLIA certified laboratory and is intended for clinical purposes. Performed By: [place] [address] Pbx Manager: Luis Fernando Paz MD, PhD CLIA Number: [id number] Performed By: #### 3 436-3 #### [facility]) ([id number]) [address] [place] [address] Drugs of abuse screen W Refl ex confirm panel (U)on 05-15-2023 Amphetamines Screen Ql (U) Negative Presumptive Negative [facility] Comment on above: CUTOFF LEVEL: 500 NG /ML Cross-reactivity has been reported with high concentrations of the following drugs: buproprion, chloroquine, chlorpromazine, ephedrine, mephentermine, fenfluramine, phentermine, phenylpropanolamine, pseudoephedrine, and propranolol. Barbiturates Screen Ql (U) Negative Presumptive Negative [facility] Comment on above: CUTOFF LEVEL: 200 NG /ML Benzodiazepines Ql (U) Negative Presu mptive Negative [facility] Comment on above: CUTOFF LEVEL: 200 NG /ML Benzoylecgonine Screen Ql (U) Negative Presumptive Negative [facility] Comment on above: CUTOFF LEVEL: 150 NG /ML Cannabinoids Screen Ql (U) Positive Abnormal Presumptive Negative [facility] Comment on above: CUTOFF LEVEL: 50 NG/ ML fentaNYL+Norfentanyl Screen Ql (U) Negative Presumptive Negative [facility] Comment on above: CUTOFF LEVEL: 5 NG/M L Interpretation and review of laboratory results Abnormal [facility] Methadone Screen Ql (U) Negative Pres umptive Negative [facility] Comment on above: CUTOFF LEVEL: 150 NG /ML The metabolite Z-pnifj-zuivwlrrwzzfou (LAAM) is not detected by this method in concentrations that would be found in the urine of patients on LAAM therapy. Opiates Screen Ql (U) Negative Presum ptive Negative [facility] Comment on above: CUTOFF LEVEL: 300 NG /ML The opiate screen does not detect fentanyl, meperidine, or tramadol. Oxycodone is not consistently detected (refer to Oxycodone Screen, Urine result). oxyCODONE+oxyMORphone Screen Ql (U) Negative Presumptive Negative [facility] Comment on above: CUTOFF LEVEL: 100 NG /ML This test will accurately detect both oxycodone and oxymorphone. Phencyclidine Ql (U) Negative Presump tive Negative [facility] Comment on above: CUTOFF LEVEL: 25 NG/ ML Cross-reactivity has been reported with dextromethorphan. Drug screen results are presumptive and should not be used to assess compliance with prescribed medication. Definitive confirmatory drug testing has been added to this sample for any positive screen result and will be reported separately. Toxicology screening results are reported qualitatively. The concentration must be greater than or equal to the cutoff to be reported as positive. The concentration at which the screening test can detect an individual drug or metabolite varies. The absence of expected drug(s) and/or drug metabolite(s) may indicate non-compliance, inappropriate timing of specimen collection relative to drug administration, poor drug absorption, diluted/adulterated urine, or limitations of testing. For medical purposes only; not valid for forensic use. Interpretive questions should be directed to the laboratory medical directors. [facility] Amphetamines Screen Ql (U) Negative Normal Presumptive Negative [facility] Comment on above: Order Comment: Drug screen results are presumptive and should not be used to assess compliance with prescribed medication. Definitive confirmatory drug testing has been added to this sample for any positive screen result and will be reported separately. Toxicology screening results are reported qualitatively. The concentration must be greater than or equal to the cutoff to be reported as positive. The concentration at which the screening test can detect an individual drug or metabolite varies. The absence of expected drug(s) and/or drug metabolite(s) may indicate non-compliance, inappropriate timing of specimen collection relative to drug administration, poor drug absorption, diluted/adulterated urine, or limitations of testing. For medical purposes only; not valid for forensic use. Interpretive questions should be directed to the laboratory medical directors. Result Comment: CUTO FF LEVEL: 500 NG/ML Cross-reactivity has been reported with high concentrations of the following drugs: buproprion, chloroquine, chlorpromazine, ephedrine, mephentermine, fenfluramine, phentermine, phenylpropanolamine, pseudoephedrine, and propranolol. Performed By: #### 8 7428-9 #### TOBIAS GENNARO ([id number]) [facility] ([facility]) [address] [place] [address] Barbiturates Screen Ql (U) Negative Normal Presumptive Negative [facility] Comment on above: Order Comment: Drug screen results are presumptive and should not be used to assess compliance with prescribed medication. Definitive confirmatory drug testing has been added to this sample for any positive screen result and will be reported separately. Toxicology screening results are reported qualitatively. The concentration must be greater than or equal to the cutoff to be reported as positive. The concentration at which the screening test can detect an individual drug or metabolite varies. The absence of expected drug(s) and/or drug metabolite(s) may indicate non-compliance, inappropriate timing of specimen collection relative to drug administration, poor drug absorption, diluted/adulterated urine, or limitations of testing. For medical purposes only; not valid for forensic use. Interpretive questions should be directed to the laboratory medical directors. Result Comment: CUTO FF LEVEL: 200 NG/ML Performed By: #### 8 7428-9 #### JATINDER BURDICK ([id number]) [facility] ([facility]) [address] [place] [address] Benzodiazepines Ql (U) Negative Normal Presu mptive Negative [facility] Comment on above: Order Comment: Drug screen results are presumptive and should not be used to assess compliance with prescribed medication. Definitive confirmatory drug testing has been added to this sample for any positive screen result and will be reported separately. Toxicology screening results are reported qualitatively. The concentration must be greater than or equal to the cutoff to be reported as positive. The concentration at which the screening test can detect an individual drug or metabolite varies. The absence of expected drug(s) and/or drug metabolite(s) may indicate non-compliance, inappropriate timing of specimen collection relative to drug administration, poor drug absorption, diluted/adulterated urine, or limitations of testing. For medical purposes only; not valid for forensic use. Interpretive questions should be directed to the laboratory medical directors. Result Comment: CUTO FF LEVEL: 200 NG/ML Performed By: #### 8 7428-9 #### JATINDER BURDICK ([id number]) [facility] ([facility]) [address] [place] [address] Benzoylecgonine Screen Ql (U) Negative Normal Presumptive Negative [facility] Comment on above: Order Comment: Drug screen results are presumptive and should not be used to assess compliance with prescribed medication. Definitive confirmatory drug testing has been added to this sample for any positive screen result and will be reported separately. Toxicology screening results are reported qualitatively. The concentration must be greater than or equal to the cutoff to be reported as positive. The concentration at which the screening test can detect an individual drug or metabolite varies. The absence of expected drug(s) and/or drug metabolite(s) may indicate non-compliance, inappropriate timing of specimen collection relative to drug administration, poor drug absorption, diluted/adulterated urine, or limitations of testing. For medical purposes only; not valid for forensic use. Interpretive questions should be directed to the laboratory medical directors. Result Comment: CUTO FF LEVEL: 150 NG/ML Performed By: #### 8 7428-9 #### JATINDER BURDICK ([id number]) [facility] ([facility]) [address] [place] [address] Cannabinoids Screen Ql (U) Positive Abnormal Presumptive Negative [facility] Comment on above: Order Comment: Drug screen results are presumptive and should not be used to assess compliance with prescribed medication. Definitive confirmatory drug testing has been added to this sample for any positive screen result and will be reported separately. Toxicology screening results are reported qualitatively. The concentration must be greater than or equal to the cutoff to be reported as positive. The concentration at which the screening test can detect an individual drug or metabolite varies. The absence of expected drug(s) and/or drug metabolite(s) may indicate non-compliance, inappropriate timing of specimen collection relative to drug administration, poor drug absorption, diluted/adulterated urine, or limitations of testing. For medical purposes only; not valid for forensic use. Interpretive questions should be directed to the laboratory medical directors. Result Comment: CUTO FF LEVEL: 50 NG/ML Performed By: #### 8 7428-9 #### JATINDER BURDICK ([id number]) [facility] ([facility]) [address] [place] [address] fentaNYL+Norfentanyl Screen Ql (U) Negative Normal Presumptive Negative [facility] Comment on above: Order Comment: Drug screen results are presumptive and should not be used to assess compliance with prescribed medication. Definitive confirmatory drug testing has been added to this sample for any positive screen result and will be reported separately. Toxicology screening results are reported qualitatively. The concentration must be greater than or equal to the cutoff to be reported as positive. The concentration at which the screening test can detect an individual drug or metabolite varies. The absence of expected drug(s) and/or drug metabolite(s) may indicate non-compliance, inappropriate timing of specimen collection relative to drug administration, poor drug absorption, diluted/adulterated urine, or limitations of testing. For medical purposes only; not valid for forensic use. Interpretive questions should be directed to the laboratory medical directors. Result Comment: CUTO FF LEVEL: 5 NG/ML Performed By: #### 8 7428-9 #### JATINDER BURDICK ([id number]) [facility] ([facility]) [facility] [place] [address] Methadone Screen Ql (U) Negative Normal Pres umptive Negative [facility] Comment on above: Order Comment: Drug screen results are presumptive and should not be used to assess compliance with prescribed medication. Definitive confirmatory drug testing has been added to this sample for any positive screen result and will be reported separately. Toxicology screening results are reported qualitatively. The concentration must be greater than or equal to the cutoff to be reported as positive. The concentration at which the screening test can detect an individual drug or metabolite varies. The absence of expected drug(s) and/or drug metabolite(s) may indicate non-compliance, inappropriate timing of specimen collection relative to drug administration, poor drug absorption, diluted/adulterated urine, or limitations of testing. For medical purposes only; not valid for forensic use. Interpretive questions should be directed to the laboratory medical directors. Result Comment: CUTO FF LEVEL: 150 NG/ML The metabolite N-jmaxa-pbnkrgmyrkhspv (LAAM) is not detected by this method in concentrations that would be found in the urine of patients on LAAM therapy. Performed By: #### 8 7428-9 #### JATINDER BURDICK ([id number]) [facility] ([facility]) [facility] [place] [address] Opiates Screen Ql (U) Negative Normal Presum ptive Negative [facility] Comment on above: Order Comment: Drug screen results are presumptive and should not be used to assess compliance with prescribed medication. Definitive confirmatory drug testing has been added to this sample for any positive screen result and will be reported separately. Toxicology screening results are reported qualitatively. The concentration must be greater than or equal to the cutoff to be reported as positive. The concentration at which the screening test can detect an individual drug or metabolite varies. The absence of expected drug(s) and/or drug metabolite(s) may indicate non-compliance, inappropriate timing of specimen collection relative to drug administration, poor drug absorption, diluted/adulterated urine, or limitations of testing. For medical purposes only; not valid for forensic use. Interpretive questions should be directed to the laboratory medical directors. Result Comment: CUTO FF LEVEL: 300 NG/ML The opiate screen does not detect fentanyl, meperidine, or tramadol. Oxycodone is not consistently detected (refer to Oxycodone Screen, Urine result). Performed By: #### 8 7428-9 #### JATINDER BURDICK ([id number]) [facility] ([facility]) [address] [place] [address] oxyCODONE+oxyMORphone Screen Ql (U) Negative Normal Presumptive Negative [facility] Comment on above: Order Comment: Drug screen results are presumptive and should not be used to assess compliance with prescribed medication. Definitive confirmatory drug testing has been added to this sample for any positive screen result and will be reported separately. Toxicology screening results are reported qualitatively. The concentration must be greater than or equal to the cutoff to be reported as positive. The concentration at which the screening test can detect an individual drug or metabolite varies. The absence of expected drug(s) and/or drug metabolite(s) may indicate non-compliance, inappropriate timing of specimen collection relative to drug administration, poor drug absorption, diluted/adulterated urine, or limitations of testing. For medical purposes only; not valid for forensic use. Interpretive questions should be directed to the laboratory medical directors. Result Comment: CUTO FF LEVEL: 100 NG/ML This test will accurately detect both oxycodone and oxymorphone. Performed By: #### 8 7428-9 #### JATINDER BURDICK ([id number]) [facility] ([facility]) [address] [place] [id number] Phencyclidine Ql (U) Negative Normal Presump tive Negative [facility] Comment on above: Order Comment: Drug screen results are presumptive and should not be used to assess compliance with prescribed medication. Definitive confirmatory drug testing has been added to this sample for any positive screen result and will be reported separately. Toxicology screening results are reported qualitatively. The concentration must be greater than or equal to the cutoff to be reported as positive. The concentration at which the screening test can detect an individual drug or metabolite varies. The absence of expected drug(s) and/or drug metabolite(s) may indicate non-compliance, inappropriate timing of specimen collection relative to drug administration, poor drug absorption, diluted/adulterated urine, or limitations of testing. For medical purposes only; not valid for forensic use. Interpretive questions should be directed to the laboratory medical directors. Result Comment: CUTO FF LEVEL: 25 NG/ML Cross-reactivity has been reported with dextromethorphan. Performed By: #### 8 7428-9 #### TOBIAS GENNARO ([id number]) [facility] ([facility]) [address] [place] [address] CBC AND DIFFERENTIALon 05-30 % AUTOMATED IMMATURE GRAN 0.2 % Normal 0.0 - 0.9 [facility] Comment on above: Result Comment: Carole ture Granulocyte Count (IG) includes promyelocytes, myelocytes and metamyelocytes but does not include bands. Percent differential counts (%) should be interpreted in the context of the absolute cell counts (cells/L). Performed By: #### C BCDF #### [address] [address] Basophils (Bld) [#/Vol] 0.02 10*3/uL Normal 0.00 - 0.1 0 [facility] Comment on above: Performed By: #### C BCDF #### [address] [address] Basophils/100 WBC (Bld) 0.4 % Normal 0.0 - 2.0 [facility] Comment on above: Performed By: #### C BCDF #### [address] [address] Eosinophils (Bld) [#/Vol] 0.08 10*3/uL Normal 0.00 - 0.70 [facility] Comment on above: Performed By: #### C BCDF #### [address] [address] Eosinophils/100 WBC (Bld) 1.4 % Normal 0.0 - 6.0 [facility] Comment on above: Performed By: #### C BCDF #### [address] [address] Erythrocyte distribution width (RBC) [Ratio] 15.0 % High 11.5 - 14.5 [facility] Comment on above: Performed By: #### C BCDF #### [address] [address] Hematocrit (Bld) [Volume fraction] 41.0 % Normal 36.0 - 46.0 [facility] Comment on above: Performed By: #### C BCDF #### [address] [address] Hemoglobin (Bld) [Mass/Vol] 13.1 g/dL Normal 12.0 - 16.0 [facility] Comment on above: Performed By: #### C BCDF #### [address] [address] Lymphocytes (Bld) [#/Vol] 2.13 10*3/uL Normal 1.20 - 4.80 [facility] Comment on above: Performed By: #### C BCDF #### [address] [address] Lymphocytes/100 WBC (Bld) 38.3 % Normal 13.0 - 44.0 [facility] Comment on above: Performed By: #### C BCDF #### [address] [address] MCHC (RBC) [Mass/Vol] 32.0 g/dL Normal 32.0 - 36.0 [facility] Comment on above: Performed By: #### C BCDF #### [address] [address] MCV (RBC) [Entitic vol] 81 fL Normal 80 - 100 [facility] Comment on above: Performed By: #### C BCDF #### [address] [address] Monocytes (Bld) [#/Vol] 0.33 10*3/uL Normal 0.10 - 1.0 0 [facility] Comment on above: Performed By: #### C BCDF #### [address] [address] Monocytes/100 WBC (Bld) 5.9 % Normal 2.0 - 10.0 [facility] Comment on above: Performed By: #### C BCDF #### [address] [address] Neutrophils (Bld) [#/Vol] 2.99 10*3/uL Normal 1.20 - 7.70 [facility] Comment on above: Result Comment: Perc ent differential counts (%) should be interpreted in the context of the absolute cell counts (cells/L). Performed By: #### C BCDF #### [address] [address] Neutrophils/100 WBC (Bld) 53.8 % Normal 40.0 - 80.0 [facility] Comment on above: Performed By: #### C BCDF #### [address] [address] Platelets (Bld) [#/Vol] 271 10*3/uL Normal 150 - 450 [facility] Comment on above: Performed By: #### C BCDF #### [address] [address] RBC 5.04 x10E12/L Normal 4.00 - 5.20 [facility] Comment on above: Performed By: #### C BCDF #### [address] [address] WBC (Bld) [#/Vol] 5.6 10*3/uL Normal 4.4 - 11.3 [facility] Comment on above: Performed By: #### C BCDF #### [address] [address] FERRITINon 05-30-2022 FERRITIN 20 ug/L Normal 8 - 150 [facility] Comment on above: Performed By: #### F ERRI #### [address] [address] HEMOGLOBIN A1Con 05-30-2022 Glucose [Mass/Vol] 100 mg/dL Normal [facility] Comment on above: Performed By: #### L IPID #### [address] [address] HbA1c (Bld) [Mass fraction] 5.1 % Normal [facility] Comment on above: Result Comment: Diag nosis of Diabetes-Adults Non-Diabetic: < or = 5.6% Increased risk for developing diabetes: 5.7-6.4% Diagnostic of diabetes: > or = 6.5% . Monitoring of Diabetes Age (y) Therapeutic Goal (%) Adults: >18 <7.0 Pediatrics: 13-18 <7.5 7-12 <8.0 0- 6 7.5-8.5 [employer]. Diabetes Care 33(S1), Mar 2009. Performed By: #### L IPID #### [address] [address] IRON + TIBCon 05-30-2022 % SATURATION 27 % Normal 25 - 45 [facility] Comment on above: Performed By: #### L IPID #### [address] [address] Iron [Mass/Vol] 106 ug/dL Normal 35 - 150 [facility] Comment on above: Performed By: #### L IPID #### [address] [address] TIBC 388 ug/dL Normal 240 - 445 [facility] Comment on above: Performed By: #### L IPID #### [address] [address] VITAMIN D, 25-HYDROXYon 05-11 VITAMIN D, 25-HYDROXY 25 ng/mL Abnormal [facility] Comment on above: Result Comment: . DEFICIENCY: < 20 NG/ML INSUFFICIENCY: 20-29 NG/ML SUFFICIENCY: 30-100 NG/ML THIS ASSAY ACCURATELY QUANTIFIES THE SUM OF VITAMIN D3, 25-HYDROXY AND VIT D2,25-HYDROXY. Performed By: #### V TDOH #### [address] [address] Office Visit (Primary Care F orms)on 03-23-2022 Follow-up visit Diagnosis/Problems Assessed Anxiety (300.00) (F41.9) Doing well with medication wean - will continue. Using shared decision making, we decided to add Buspar for prn use during the day. WIll continue prn hydroxyzine at night. Medication dosing and side effects reviewed. Follow up in 3mo for recheck, sooner if needed. Return precautions reviewed. 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 Vitamin D deficiency (268.9) (E55.9) Doing well with supplement. WIll repeat labs prior to next appt. Iron deficiency (280.9) (E61.1) Reviewed supplemental iron dosing. Will repeat labs priro to next appt. Elevated fasting glucose (790.21) (R73.01) Will obtain HbA1c prior to next lab draw for further characterization. Orders Anxiety Start: busPIRone HCl - 5 MG Oral Tablet; TAKE 1 TABLET EVERY 12 HOURS DAILY Rx By: Jhon Scott; Dispense: 30 Days ; #:60 Tablet; Refill: 1;For: Anxiety; JOYCE = N; Verified Transmission to [facility]; Last Updated By: [facility]; 03/23/2022 2:41:49 PM Elevated fasting glucose Hemoglobin A1C; Status:Active; Requested for:23Mar2022; Perform:Lab Services - Lab To Draw (Blood Test); Due:21Jun2022;Ordered ; For:Elevated fasting glucose; Ordered By:Jhon Scott; Iron deficiency Complete Blood Count + Differential; Status:Active; Requested for:23Mar2022; Perform:Lab Services - Lab To Draw (Blood Test); Due:21Jun2022;Ordered ; For:Iron deficiency; Ordered By:Jhon Scott; Ferritin, Serum; Status:Active; Requested for:23Mar2022; Perform:Lab Services - Lab To Draw (Blood Test); Due:21Jun2022;Ordered ; For:Iron deficiency; Ordered By:Jhon Scott; Iron + TIBC, Serum; Status:Active; Requested for:23Mar2022; Perform:Lab Services - Lab To Draw (Blood Test); Due:21Jun2022;Ordered ; For:Iron deficiency; Ordered By:Jhon Scott; Vitamin D deficiency Vitamin D 25-Hydroxy; Status:Active; Requested for:23Mar2022; Perform:Lab Services - Lab To Draw (Blood Test); Due:21Jun2022;Ordered ; For:Vitamin D deficiency; Ordered By:Jhon Scott; Chief Complaint 2 week check with labs. Done with Vyvanse will start 50mg of Zoloft tonight History of Present IllnessPatient presents today for follow up. Regarding anx/dep, doing well with medication wean. Was able to completely stop the Vyvanse after a week of 30mg and didn't need the 20mg. Will be decreasing the Zoloft to 50mg starting tonight and then will stop next week. Anxiety has peaked some, but states is able to recognize and work through it. Is sleeping better without the Vyvanse. Has tried taking 1/2 tablet hydroxyzine which also seems to help (full tablet caused grogginess). Review of Systems Constitutional: no fever. Cardiovascular: no chest pain. Respiratory: no cough. All other systems have been reviewed and are negative for complaint. Active Problems Problems Anxiety (300.00) (F41.9) Cervical cancer screening (V76.2) (Z12.4) Follows with Dr. Enedina alarcon Class 2 obesity with body mass index (BMI) of 37.0 to 37.9 in adult (278.00,V85.37) (E66.9,Z68.37) Depression, major, single episode, mild (296.21) (F32.0) Encounter for hepatitis C screening test for low risk patient (V73.89) (Z11.59) 03/2022: neg Iron deficiency (280.9) (E61.1) Vitamin D deficiency (268.9) (E55.9) Surgical History Problems History of section History of [place] tooth extraction Family History Mother Family history of diabetes mellitus (V18.0) (Z83.3) Family history of hypertension (V17.49) (Z82.49) Father Family history of diabetes mellitus (V18.0) (Z83.3) Family history of hypertension (V17.49) (Z82.49) Grandparent Family history of cardiac disorder (V17.49) (Z82.49) Family history of diabetes mellitus (V18.0) (Z83.3) Family history of hypertension (V17.49) (Z82.49) Family history of Parkinson's disease (V17.2) (Z82.0) Grandmother Family history of cardiac disorder (V17.49) (Z82.49) Family history of diabetes mellitus (V18.0) (Z83.3) Family history of hypertension (V17.49) (Z82.49) Social History Problems Consumes alcohol occasionally (V49.89) (Z78.9) Does not have living will Does not use illicit drugs (V49.89) (Z78.9) Nicotine dependence due to vaping tobacco product (305.1) (F17.290) Current Meds Medication NameInstruction Ferrous Sulfate 325 (65 Fe) MG Oral TabletTAKE 1 TABLET every sunday, sunday, sunday hydrOXYzine HCl - 25 MG Oral TabletTake one tablet at bedtime as needed for anxiety Sertraline HCl - 100 MG Oral TabletTake 1 tablet daily Vitamin D3 50 MCG (1999 UT) Oral TabletTake 1 tablet daily Allergies Medication No Known Drug Allergies Recorded By: Rosa Sanches; 03/09/2022 10:58:45 AM Vitals Vital Signs Recorded: 23Mar2022 02:29PM Heart Rate92 Tcfduozb978 Crcvmgkex41 Height5 ft 7 in Ezxnkc370 lb BMI Ozadlxfswq81.06 kg/m2 BSA Calculated2.2 Tobacco Usea) Yes Physical Exam Constitutional - Well developed, well no (more content not included)... Normal [employer] Tobacco Screening.on 023 Tobacco use status [facility] a) Yes M [facility] 205 DO Work Phone: FERRITINon 03-15-2022 FERRITIN 17 ug/L Normal 8 - 150 [facility] Comment on above: Performed By: #### F ERRI #### [address] [address] IRON + TIBCon 03-15-2022 % SATURATION 9 % Low 25 - 45 [facility] Comment on above: Performed By: #### I RONRyan #### [address] [address] Iron [Mass/Vol] 37 ug/dL Normal 35 - 150 [facility] Comment on above: Performed By: #### I RONT #### [address] [place] [address] TIBC 417 ug/dL Normal 240 - 445 [facility] Comment on above: Performed By: #### I LES #### [address] [address] CBC AND DIFFERENTIALon 03-14 % AUTOMATED IMMATURE GRAN 0.2 % Normal 0.0 - 0.9 [facility] Comment on above: Result Comment: Carole ture Granulocyte Count (IG) includes promyelocytes, myelocytes and metamyelocytes but does not include bands. Percent differential counts (%) should be interpreted in the context of the absolute cell counts (cells/L). Performed By: #### L IPID #### [address] [address] Basophils (Bld) [#/Vol] 0.05 10*3/uL Normal 0.00 - 0.1 0 [facility] Comment on above: Performed By: #### L IPID #### [address] [address] Basophils/100 WBC (Bld) 0.8 % Normal 0.0 - 2.0 [facility] Comment on above: Performed By: #### L IPID #### [address] [address] Eosinophils (Bld) [#/Vol] 0.14 10*3/uL Normal 0.00 - 0.70 [facility] Comment on above: Performed By: #### L IPID #### [address] [address] Eosinophils/100 WBC (Bld) 2.1 % Normal 0.0 - 6.0 [facility] Comment on above: Performed By: #### L IPID #### [address] [address] Erythrocyte distribution width (RBC) [Ratio] 14.0 % Normal 11.5 - 14.5 [facility] Comment on above: Performed By: #### L IPID #### [address] [address] Hematocrit (Bld) [Volume fraction] 41.2 % Normal 36.0 - 46.0 [facility] Comment on above: Performed By: #### L IPID #### [address] [address] Hemoglobin (Bld) [Mass/Vol] 13.1 g/dL Normal 12.0 - 16.0 [facility] Comment on above: Performed By: #### L IPID #### [address] [address] Lymphocytes (Bld) [#/Vol] 2.38 10*3/uL Normal 1.20 - 4.80 [facility] Comment on above: Performed By: #### L IPID #### [address] [address] Lymphocytes/100 WBC (Bld) 36.1 % Normal 13.0 - 44.0 [facility] Comment on above: Performed By: #### L IPID #### [address] [address] MCHC (RBC) [Mass/Vol] 31.8 g/dL Low 32.0 - 36.0 [facility] Comment on above: Performed By: #### L IPID #### [address] [address] MCV (RBC) [Entitic vol] 78 fL Low 80 - 100 [facility] Comment on above: Performed By: #### L IPID #### [address] [address] Monocytes (Bld) [#/Vol] 0.41 10*3/uL Normal 0.10 - 1.0 0 [facility] Comment on above: Performed By: #### L IPID #### [address] [address] Monocytes/100 WBC (Bld) 6.2 % Normal 2.0 - 10.0 [facility] Comment on above: Performed By: #### L IPID #### [address] [address] Neutrophils (Bld) [#/Vol] 3.60 10*3/uL Normal 1.20 - 7.70 [facility] Comment on above: Result Comment: Perc ent differential counts (%) should be interpreted in the context of the absolute cell counts (cells/L). Performed By: #### L IPID #### [address] [address] Neutrophils/100 WBC (Bld) 54.6 % Normal 40.0 - 80.0 [facility] Comment on above: Performed By: #### L IPID #### [place] [id number] Platelets (Bld) [#/Vol] 325 10*3/uL Normal 150 - 450 [facility] Comment on above: Performed By: #### L IPID #### [place] [id number] RBC 5.30 x10E12/L High 4.00 - 5.20 [facility] Comment on above: Performed By: #### L IPID #### [place] [id number] WBC (Bld) [#/Vol] 6.6 10*3/uL Normal 4.4 - 11.3 [facility] Comment on above: Performed By: #### L IPID #### [place] [address] COMPREHENSIVE PANELon 2022 Albumin [Mass/Vol] 4.3 g/dL Normal 3.4 - 5.0 [facility] Comment on above: Performed By: #### C MP #### [address] [address] ALP [Catalytic activity/Vol] 83 U/L Normal 33 - 110 [facility] Comment on above: Performed By: #### C MP #### [address] [address] ALT [Catalytic activity/Vol] 17 U/L Normal 7 - 45 [facility] Comment on above: Result Comment: Cecilia ents treated with Sulfasalazine may generate falsely decreased results for ALT. Performed By: #### C MP #### [place] [id number] Anion gap [Moles/Vol] 10 mmol/L Normal 10 - 20 [facility] Comment on above: Performed By: #### C MP #### [address] [address] AST [Catalytic activity/Vol] 16 U/L Normal 9 - 39 [facility] Comment on above: Performed By: #### C MP #### [address] [address] Bilirubin [Mass/Vol] 0.3 mg/dL Normal 0.0 - 1.2 [facility] Comment on above: Performed By: #### C MP #### [address] [address] Calcium [Mass/Vol] 9.6 mg/dL Normal 8.6 - 10.3 [facility] Comment on above: Performed By: #### C MP #### [address] [address] Chloride [Moles/Vol] 104 mmol/L Normal 98 - 107 [facility] Comment on above: Performed By: #### C MP #### [address] [address] Creatinine [Mass/Vol] 0.75 mg/dL Normal 0.50 - 1.05 [facility] Comment on above: Performed By: #### C MP #### [address] [address] eGFR FEMALE >90 Normal >90 [facility] Comment on above: Result Comment: CALC ULATIONS OF ESTIMATED GFR ARE PERFORMED USING THE 2020 CKD-EPI STUDY REFIT EQUATION WITHOUT THE RACE VARIABLE FOR THE IDMS-TRACEABLE CREATININE METHODS. https://jasn.asnjournals.org/content/early/ASN.2020 858962 Performed By: #### C MP #### [address] [address] Glucose [Mass/Vol] 104 mg/dL High 74 - 99 [facility] Comment on above: Performed By: #### C MP #### [address] [place] [address] HCO3 (Bld) [Moles/Vol] 28 mmol/L Normal 21 - 32 [facility] Comment on above: Performed By: #### C MP #### [address] [address] Potassium [Moles/Vol] 4.1 mmol/L Normal 3.5 - 5.3 [facility] Comment on above: Performed By: #### C MP #### [address] [address] Protein [Mass/Vol] 7.6 g/dL Normal 6.4 - 8.2 [facility] Comment on above: Performed By: #### C MP #### [address] [address] Sodium [Moles/Vol] 138 mmol/L Normal 136 - 145 [facility] Comment on above: Performed By: #### C MP #### [address] [address] Urea nitrogen [Mass/Vol] 10 mg/dL Normal 6 - 23 [facility] Comment on above: Performed By: #### C MP #### [address] [address] Complete Blood Count + Diffe rentialon 03-14-2022 Basophils/100 WBC (Bld) 0.8 % 0.0 - 2.0 M [facility] 205 DO Work Phone: Erythrocyte distribution width (RBC) [Ratio] 14.0 % See Below [facility] 205 DO Work Phone: Comment on above: Reference Range: 11. 5 - 14.5 Hematocrit (Bld) [Volume fraction] 41.2 % See Below [facility] 205 DO Work Phone: Comment on above: Reference Range: 36. 0 - 46.0 Hemoglobin (Bld) [Mass/Vol] 13.1 g/dL See Below [facility] 205 DO Work Phone: Comment on above: Reference Range: 12. 0 - 16.0 Lymphocytes/100 WBC (Bld) 36.1 % See Below [facility] 205 DO Work Phone: Comment on above: Reference Range: 13. 0 - 44.0 MCHC (RBC) [Mass/Vol] 31.8 g/dL below low threshold See Below [facility] 205 DO Work Phone: Comment on above: Reference Range: 32. 0 - 36.0 MCV (RBC) [Entitic vol] 78 fL below lo w threshold 80 - 100 [facility] 205 DO Work Phone: Monocytes/100 WBC (Bld) 6.2 % 2.0 - 10.0 M [facility] 205 DO Work Phone: Neutrophils/100 WBC (Bld) 54.6 % See Below [facility] 205 DO Work Phone: Comment on above: Reference Range: 40. 0 - 80.0 Platelets (Bld) [#/Vol] 325 10*3/uL 150 - 450 [facility] 205 DO Work Phone: RBC (Bld) [#/Vol] 5.30 {x10E12/L} above high threshold See Below [facility] 205 DO Work Phone: Comment on above: Reference Range: 4.0 0 - 5.20 WBC (Bld) [#/Vol] 6.6 10*3/uL 4.4 - 11.3 [facility] 205 DO Work Phone: Complete Blood Count + Differential 0.05 {x10E9/L} See Below [facility] 205 DO Work Phone: Comment on above: Reference Range: 0.0 0 - 0.10 Complete Blood Count + Differential 0.14 {x10E9/L} See Below [facility] 205 DO Work Phone: Comment on above: Reference Range: 0.0 0 - 0.70 Complete Blood Count + Differential 0.41 {x10E9/L} See Below [facility] 205 DO Work Phone: Comment on above: Reference Range: 0.1 0 - 1.00 Complete Blood Count + Differential 2.38 {x10E9/L} See Below [facility] 205 DO Work Phone: Comment on above: Reference Range: 1.2 0 - 4.80 Complete Blood Count + Differential 3.60 {x10E9/L} See Below [facility] 205 DO Work Phone: Comment on above: Reference Range: 1.2 0 - 7.70 Percent differential counts (%) should be interpreted in the context of the absolute cell counts (cells/L). Complete Blood Count + Differential 2.1 % 0.0 - 6.0 [facility] 205 DO Work Phone: Complete Blood Count + Differential 0.2 % 0.0 - 0.9 [facility] 205 DO Work Phone: Comment on above: Immature Granulocyte Count (IG) includes promyelocytes, myelocytes and metamyelocytes but does not include bands. Percent differential counts (%) should be interpreted in the context of the absolute cell counts (cells/L). Ferritin, Serumon 03-14-2022 Ferritin [Mass/Vol] 17 ug/L 8 - 150 [facility] 205 DO Work Phone: HEPATITIS C ABon 03-14-2022 HEPATITIS C AB Non-Reactive Normal NONREACTIVE [facility] Comment on above: Result Comment: Resu lts from patients taking biotin supplements or receiving high-dose biotin therapy should be interpreted with caution due to possible interference with this test. Providers may contact their local laboratory for further information. Performed By: #### H CVAB #### [facility] [address] [place] [address] Lab Specimen Source Normal [facility] Comment on above: Performed By: #### H CVAB #### [facility] [address] [place] [address] Hepatitis C Antibody Teston 03-14-2022 Hepatitis C Antibody Test Non-Reactive See Below -[facility] 205 DO Work Phone: Comment on above: SOURCE: Reference Ra nge: NONREACTIVE Results from patients taking biotin supplements or receiving high-dose biotin therapy should be interpreted with caution due to possible interference with this test. Providers may contact their local laboratory for further information. LIPID PANEL (CORONARY RISK 2 )on 03-14-2022 Cholesterol [Mass/Vol] 173 mg/dL Normal 0 - 199 [facility] Comment on above: Result Comment: . AGE DESIRABLE BORDERLINE HIGH HIGH 0-19 Y 0 - 169 170 - 199 >/= 200 20-24 Y 0 - 189 190 - 224 >/= 225 >24 Y 0 - 199 200 - 239 >/= 240 All ranges are based on fasting samples. Specific therapeutic targets will vary based on patient-specific cardiac risk. . Pediatric guidelines reference:Pediatrics 2011, 128(S5). Adult guidelines reference: NCEP ATPIII Guidelines, LILY 2001, 258:2486-97 . Venipuncture immediately after or during the administration of Metamizole may lead to falsely low results. Testing should be performed immediately prior to Metamizole dosing. Performed By: #### L IPID #### [place] [address] [place] [address] Cholesterol in HDL [Mass/Vol] 41.0 mg/dL Normal [facility] Comment on above: Result Comment: . AGE VERY LOW LOW NORMAL HIGH 0-19 Y < 35 < 40 40-45 ---- 20-24 Y ---- < 40 >45 ---- >24 Y ---- < 40 40-60 >60 . Performed By: #### L IPID #### [address] [address] Cholesterol in LDL [Mass/Vol] 112 mg/dL Normal 0 - 119 [facility] Comment on above: Result Comment: . NEAR BORD AGE DESIRABLE OPTIMAL HIGH HIGH VERY HIGH 0-19 Y 0 - 109 --- 110-129 >/= 130 ---- 20-24 Y 0 - 119 --- 120-159 >/= 160 ---- >24 Y 0 - 99 100-129 130-159 160-189 >/=190 . Performed By: #### L IPID #### [address] [address] Cholesterol in VLDL [Mass/Vol] 20 mg/dL Normal 0 - 40 [facility] Comment on above: Performed By: #### L IPID #### [address] [address] Cholesterol.total/Annette sterol in HDL [Mass ratio] 4.2 {ratio} Normal [facility] Comment on above: Result Comment: REF VALUES DESIRABLE < 3.4 HIGH RISK > 5.0 Performed By: #### L IPID #### [address] [address] NON-HDL CHOLESTEROL 132 mg/dL Normal 0 - 149 [facility] Comment on above: Result Comment: AGE DESIRABLE BORDERLINE HIGH HIGH VERY HIGH 0-19 Y 0 - 119 120 - 144 >/= 145 >/= 160 20-24 Y 0 - 149 150 - 189 >/= 190 ---- >24 Y 30 MG/DL ABOVE LDL CHOLESTEROL GOAL . Performed By: #### L IPID #### [address] [address] Triglyceride [Mass/Vol] 101 mg/dL Normal 0 - 149 [facility] Comment on above: Result Comment: . AGE DESIRABLE BORDERLINE HIGH HIGH VERY HIGH 0 D-90 D 19 - 174 ---- ---- ---- 91 D- 9 Y 0 - 74 75 - 99 >/= 100 ---- 10-19 Y 0 - 89 90 - 129 >/= 130 ---- 20-24 Y 0 - 114 115 - 149 >/= 150 ---- >24 Y 0 - 149 150 - 199 200- 499 >/= 500 . Venipuncture immediately after or during the administration of Metamizole may lead to falsely low results. Testing should be performed immediately prior to Metamizole dosing. Performed By: #### L IPID #### [facility] [address] [place] [address] Laboratory - Chemistry and C hemistry - challengeon 03-14-2022 Albumin BCP dye [Mass/Vol] 4.3 g/dL 3.4 - 5.0 [facility] 205 DO Work Phone: ALP [Catalytic activity/Vol] 83 U/L 33 - 110 [facility] 205 DO Work Phone: ALT With P-5'-P [Catalytic activity/Vol] 17 U/L 7 - 45 [facility] 205 DO Work Phone: Comment on above: Patients treated wit h Sulfasalazine may generate falsely decreased results for ALT. Anion gap [Moles/Vol] 10 mmol/L 10 - 20 [facility] 205 DO Work Phone: AST With P-5'-P [Catalytic activity/Vol] 16 U/L 9 - 39 [facility] 205 DO Work Phone: Bilirubin [Mass/Vol] 0.3 mg/dL 0.0 - 1.2 [facility] 205 DO Work Phone: Calcium [Mass/Vol] 9.6 mg/dL 8.6 - 10.3 [facility] 205 DO Work Phone: Chloride [Moles/Vol] 104 mmol/L 98 - 107 [facility] 205 DO Work Phone: CO2 [Moles/Vol] 28 mmol/L 21 - 32 [facility] DO Work Phone: Creatinine [Mass/Vol] 0.75 mg/dL See Below [facility] 205 DO Work Phone: Comment on above: Reference Range: 0.5 0 - 1.05 Glucose [Mass/Vol] 104 mg/dL above high threshold 74 - 99 [facility] 205 DO Work Phone: Iron [Mass/Vol] 37 ug/dL 35 - 150 [facility] 205 DO Work Phone: Iron binding capacity [Mass/Vol] 417 ug/dL 240 - 445 [facility] 205 DO Work Phone: Potassium [Moles/Vol] 4.1 mmol/L 3.5 - 5.3 [facility] 205 DO Work Phone: Protein [Mass/Vol] 7.6 g/dL 6.4 - 8.2 [facility] 205 DO Work Phone: Sodium [Moles/Vol] 138 mmol/L 136 - 145 [facility] 205 DO Work Phone: TSH Qn 0.73 m[IU]/L See Below [facility] 205 DO Work Phone: Comment on above: Reference Range: 0.4 4 - 3.98 TSH testing is performed using different testing methodology at [facility] than at other [facility]. Direct result comparisons should only be made within the same method. Urea nitrogen [Mass/Vol] 10 mg/dL 6 - 23 [facility] 205 DO Work Phone: Lipid Panelon 03-14-2022 Cholesterol [Mass/Vol] 173 mg/dL 0 - 199 [facility] 205 DO Work Phone: Comment on above: . AGE DESIRABLE BORD RONAL HIGH HIGH 0-19 Y 0 - 169 170 - 199 >/= 200 20-24 Y 0 - 189 190 - 224 >/= 225 >24 Y 0 - 199 200 - 239 >/= 240 All ranges are based on fasting samples. Specific therapeutic targets will vary based on patient-specific cardiac risk.. Pediatric guidelines reference:Pediatrics 2011, 128(S5). Adult guidelines reference: NCEP ATPIII Guidelines, LILY 2001, 258:2486-97. Venipuncture immediately after or during the administration of Metamizole may lead to falsely low results. Testing should be performed immediately prior to Metamizole dosing. Cholesterol in HDL [Mass/Vol] 41.0 mg/dL [facility] 205 DO Work Phone: Comment on above: . AGE VERY LOW LOW N ORMAL HIGH 0-19 Y < 35 < 40 40-45 ---- 20-24 Y ---- < 40 >45 ---- >24 Y ---- < 40 40-60 >60. Cholesterol in LDL [Mass/Vol] 112 mg/dL 0 - 119 [facility] 205 DO Work Phone: Comment on above: . NEAR BORD AGE GERRI RABLE OPTIMAL HIGH HIGH VERY HIGH 0-19 Y 0 - 109 --- 110-129 >/= 130 ---- 20-24 Y 0 - 119 --- 120-159 >/= 160 ---- >24 Y 0 - 99 100-129 130-159 160-189 >/=190. Cholesterol non HDL [Mass/Vol] 132 mg/dL 0 - 149 [facility] 205 DO Work Phone: Comment on above: AGE DESIRABLE BORDER LINE HIGH HIGH VERY HIGH 0-19 Y 0 - 119 120 - 144 >/= 145 >/= 160 20-24 Y 0 - 149 150 - 189 >/= 190 ---- >24 Y 30 MG/DL ABOVE LDL CHOLESTEROL GOAL. Cholesterol.total/Annette sterol in HDL [Mass ratio] 4.2 {ratio} [facility] DO Work Phone: Comment on above: REF VALUESDESIRABLE < 3.4HIGH RISK > 5.0 Triglyceride [Mass/Vol] 101 mg/dL 0 - 149 M [facility] 205 DO Work Phone: Comment on above: . AGE DESIRABLE BORD RONAL HIGH HIGH VERY HIGH 0 D-90 D 19 - 174 ---- ---- ----91 D- 9 Y 0 - 74 75 - 99 >/= 100 ---- 10-19 Y 0 - 89 90 - 129 >/= 130 ---- 20-24 Y 0 - 114 115 - 149 >/= 150 ---- >24 Y 0 - 149 150 - 199 200- 499 >/= 500. Venipuncture immediately after or during the administration of Metamizole may lead to falsely low results. Testing should be performed immediately prior to Metamizole dosing. Lipid Panel 20 mg/dL 0 - 40 [place] [address] DO Work Phone: No Panel Informationon 03-14 >90 >90 [place] [address] DO Work Phone: Comment on above: CALCULATIONS OF KATELYN MATED GFR ARE PERFORMED USING THE 2020 CKD-EPI STUDY REFIT EQUATION WITHOUT THE RACE VARIABLE FOR THE IDMS-TRACEABLE CREATININE METHODS.https://jasn.asnjournals.org/content// ASN.8374804852 9 % below low threshold 25 - 45 [facility] 205 DO Work Phone: TSH WITH REFLEX TO FREE T4 I F ABNORMALon 03-14-2022 TSH Qn 0.73 m[IU]/L Normal 0.44 - 3.98 [facility] Comment on above: Result Comment: TSH testing is performed using different testing methodology at [facility] than at other [facility]. Direct result comparisons should only be made within the same method. Performed By: #### L IPID #### [address] [address] VITAMIN B12on 03-14-2022 Cobalamin (Vitamin B12) [Mass/Vol] 297 pg/mL Normal 211 - 911 [facility] Comment on above: Performed By: #### V TB12 #### [address] [address] VITAMIN D, 25-HYDROXYon VITAMIN D, 25-HYDROXY 26 ng/mL Abnormal [facility] Comment on above: Result Comment: . DEFICIENCY: < 20 NG/ML INSUFFICIENCY: 20-29 NG/ML SUFFICIENCY: 30-100 NG/ML THIS ASSAY ACCURATELY QUANTIFIES THE SUM OF VITAMIN D3, 25-HYDROXY AND VIT D2,25-HYDROXY. Performed By: #### V TDOH #### [address] [address] Vitamin B12, Serumon 023 Cobalamin (Vitamin B12) [Mass/Vol] 297 pg/mL 211 - 911 [facility] 205 DO Work Phone: Vitamin D 25-Hydroxyon 03-14 25-hydroxyvitamin D3 [Mass/Vol] 26 ng/mL Abnormal [facility] 205 DO Work Phone: Comment on above: .DEFICIENCY: < 20 NG /MLINSUFFICIENCY: 20-29 NG/MLSUFFICIENCY: 30-100 NG/MLTHIS ASSAY ACCURATELY QUANTIFIES THE SUM OFVITAMIN D3, 25-HYDROXY AND VIT D2,25-HYDROXY. Office Visit (Primary Care F orms)on 03-09-2022 Follow-up visit Diagnosis/Problems Assessed Anxiety (300.00) (F41.9) Currently managed on Zoloft 100mg qd and Vyvanse 40mg qd and interested in weaning the medications. Discussed wean. Zoloft - 50mg qd x1wk, then 25mg qd x1wk, then stop. Vyvanse - 30mg qd x1wk, then 20mg qd x1wk, then stop. Will provide rx for hydroxyzine for prn nighttime anxiety that is interfering with sleep. Medication dosing and side effects reviewed. Follow up in 2wks for recheck, sooner if needed. Continue close f/u with therapist as previously scheduled. I have personally reviewed the OARRS for this patient. I have considered the risk dependence, addiction, and diversion. There are no concerns at this time. I believe that it is clinically appropriate for this patient to be prescribed this medication based on documented diagnosis. 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 Cervical cancer screening (V76.2) (Z12.4) Follows with obgyn, Dr. Enedina Groves UTD with obgyn per pt report. Will attempt to obtain records for review. Encounter for hepatitis C screening test for low risk patient (V73.89) (Z11.59) Order placed. Fatigue (780.79) (R53.83) Will obtain labs as below to rule out vitamin deficiency, metabolic derangement, thyroid disturbance and follow up with results. Class 2 obesity with body mass index (BMI) of 37.0 to 37.9 in adult (278.00,V85.37) (E66.9,Z68.37) *Orders Anxiety Start: hydrOXYzine HCl - 25 MG Oral Tablet; Take one tablet at bedtime as needed for anxiety Rx By: Jhon Scott; Dispense: 30 Days ; #:30 Tablet; Refill: 1;For: Anxiety; JOYCE = N; Verified Transmission to [facility]; Last Updated By: iCreate; 03/09/2022 11:41:40 AM Renew: Sertraline HCl - 100 MG Oral Tablet; Take 1 tablet daily Rx By: Jhon Scott; Dispense: 30 Days ; #:30 Tablet; Refill: 1;For: Anxiety; JOYCE = N; Verified Transmission to [facility]; Last Updated By: iCreate; 03/09/2022 11:41:41 AM Renew: Vyvanse 20 MG Oral Capsule; TAKE 1 CAPSULE Daily Rx By: Jhon Scott; Dispense: 7 Days ; #:7 Capsule; Refill: 0;For: Anxiety; JOYCE = N; Verified Transmission to [facility]; Last Updated By: Cipriano Casas; 03/09/2022 12:31:44 PM Health Maintenance Complete Blood Count + Differential; Status:Resulted - Requires Verification; Done: 14Mar2022 10:50AM Performed:[facility]; Due:07Jun2022;Ordered ; For:Health Maintenance; Ordered By:Jhon Scott; Comprehensive Metabolic Panel; Status:Resulted - Requires Verification; Done: 14Mar2022 10:50AM Performed:[facility]; Due:07Jun2022;Ordered ; For:Health Maintenance; Ordered By:Jhon Scott; Hepatitis C Antibody Test; Status:Resulted - Requires Verification; Done: 14Mar2022 10:50AM Performed:[facility]; Due:07Jun2022;Ordered ; For:Health Maintenance; Ordered By:Jhon Scott; Lipid Panel; Status:Resulted - Requires Verification; Done: 14Mar2022 10:50AM Performed:[facility]; Due:07Jun2022;Ordered ; For:Health Maintenance; Ordered By:Jhon Scott; TSH WITH REFLEX TO FREE T4 IF ABNORMAL; Status:Resulted - Requires Verification; Done: 14Mar2022 10:50AM Performed:[facility]; Due:07Jun2022;Ordered ; For:Health Maintenance; Ordered By:Jhon Scott; Vitamin B12, Serum; Status:Resulted - Requires Verification; Done: 14Mar2022 10:50AM Performed:[facility]; Due:07Jun2022;Ordered ; For:Health Maintenance; Ordered By:Jhon Scott; Vitamin D 25-Hydroxy; Status:Resulted - Requires Verification; Done: 14Mar2022 10:50AM Performed:[facility]; Due:07Jun2022;Ordered ; For:Health Maintenance; Ordered By:Jhon Scott; Health Maintenance (V70.0) (Z00.00) Chief Complaint Pt is here today to get est with new PCP, would like to talk about her medications. History of Present IllnessThis is a 21yo female with pmhx significant for anx/dep who presents today with her to establish and discuss as below. Previous PCP Dinora Sheridan CUSTOMER SERVICE COORDINATOR - only saw once. Last labs >1yr ago. Regarding anx/dep, reports chronic struggle. States that she has been on an antidepressant since age 14. Currently managed on Zoloft 100mg qd and Vyvanse 40mg qd. Was initially on Prozac and was transitioned to Zoloft after plateauing on Prozac. Saw prior PCP CUSTOMER SERVICE COORDINATOR and was started on Vyvanse - patient believes reasons was binge eating disorder. Was eventually increased to 40mg qd. Noticed that she has more energy when she takes it, but otherwise feels the same. Saw psychiatry (Dr. Soraya Harrington [place]), where Vyvanse was continued. Transition from Zoloft to another ?SSRI was entertained, but not done. Currently, is struggling. States that she has lack of emotion with the Zoloft. Feels off and not like herself. Feels that her depression is worse than anxiety. Reports lack of motivation, feels sluggish. Has difficulty sleeping due to anxiety/mind racing at night. Has been followin (more content not included)... Normal [employer] Tobacco Screening.on 022 Tobacco use status CPHS a) Yes M -[facility] 205 DO Work Phone: Tobacco Screening. Yes [facility]-[place] [facility] 205 DO Work Phone: ACTHon 02-03-2021 ACTH 10.7 pg/mL Normal 7.2-63.3 [facility] Comment on above: Performed By: #### A [facility] #### [facility] Laboratories Routine Lab [address] [place], [place] [address] ACTH [CCL]on 02-03-2021 ACTH 10.7 pg/mL Normal 7.2-63.3 [facility] Comment on above: Result Comment: ACTH Reference Range: 7-10 am: 7.2 - 63.3 pg/mL [facility] [employer] [address] [place]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 supplemental testing.Order confirmation testing: HCV Quant by PCR testing - HCVPCR lc#[id number] Non Reactive: < 0.8 Equivocal: >/= 0.8 to < 1.0 Reactive: >/= 1.0The CDC requires that a reactive/equivocal HCV antibody result be sent out for confirmation. HCV Quant by PCR testing. Start: 06-19-[address] Brody Cleaning DO Work Phone: Start: 06-19-[address] Brody Cleaning DO Work Phone: Comment on above: Antibody Result: Int erpretationNon-Reactive: Non- ImmuneReactive: ImmuneThe following results were obtained with the [employer] Rubella IgG assay. Results from assays of other manufacturers cannot be used interchangeably. Start: 06-19-2024 Serologic test for syphilis Dr. Brody Cleaning DO Work Phone: Start: 06-13-2024 Transv[address] obstetr ic ultrasonography Dr. Brody Cleaning DO Work Phone: Start: 06-13-2024 Urnls dip stick/tabl et reagent auto microscopy Dr. Brody Cleaning DO Work Phone: Start: 06-13-2024 Complete ultrasound of kidneys and bladder Dr. Brody Cleaning DO Work Phone: Start: 06-13-[address] Brody Cleaning DO Work Phone: Start: 05-23-[address] Brody Cleaning DO Work Phone: Start: 05-20-[address] Brody Cleaning DO Work Phone: Start: 05-20-[address] Brody Cleaning DO Work Phone: Start: 05-20-[address]etr ic ultrasonography Dr. Brody Cleaning DO Work Phone: Start: 05-20-2024 Urnls dip stick/tabl et reagent auto microscopy Dr. Brody Cleaning DO Work Phone: Start: 03-06-2024 Ct abdomen & pelvis w/contrast material Arianne PATC Work Phone: Start: 03-06-2024 Urinalysis microscop ic panel - Urine Qualitative by Automated Arianne PATC Work Phone: Start: 03-06-2024 Urine test visual color cmprsn meths Arianne PALACIOS-C Work Phone: Start: 03-06-2024 Urnls dip stick/tabl et reagent auto microscopy Arianne PALACIOS-C Work Phone: Start: 03-06-2024 EXTRA TUBES Mumtaz D Lemasters DO Work Phone: Start: 03-06-2024 LIGHT BLUE TOP Mumtaz D Lemasters DO Work Phone: Start: 03-06-2024 PST TOP Mumtaz D Lemasters DO Work Phone: Start: 03-06-2024 SST TOP Mumtaz D Lemasters DO Work Phone: Start: 03-06-2024 Comprehensive metabo lic panel Arianne PATC Work Phone: Start: 09-11-2023 Lipid 1996 panel - S haider or Plasma Jhon Scott DO Work Phone: Start: 06-20-2023 [facility] Start: 05-15-2023 FOLLOW UP IN FAMILY MEDICINE JHON SCOTT Start: 05-15-2023 Drug screening cannabinoids natural Jhon Scott [employer] Phone: Start: 05-15-2023 Drugs of abuse scree n W Reflex confirm panel - Urine Jhon Scott [employer] Work Phone: Start: 09-28-2022 Microscopic observat ion [Identifier] in Cervix by Cyto stain Jhon Scott [employer] Phone: Start: 03-14-2022 Lipid 1996 panel - S haider or Plasma Jhon Scott [employer] Phone: section Jhon Scott Work Phone: Extraction of wisdom tooth M seema Scott Work Phone: H/O: section Previous c esarean section Dr. Brody Cleaning DO Work Phone: Comment on above: plans repeat C/S H/O: section Previous c esarean section Amada Black CNM H/O: section Previous c esarean section Amada Black CNM H/O: section Previous c esarean section Dr. 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 Plan of Treatment Date Care Activity Detail Author Start: 2059 RSV patients and/or patients aged 60+ years (1 - 1-dose 60+ series) RSV patients and/or patients aged 60+ years (1 - 1-dose 60+ series) [facility] Start: 12-15-2049 Zoster Vaccines (1 of 2) Zoster Vaccines (1 of 2) [facility] Start: 03-12-2030 DTaP/Tdap/Td Vaccines (2 - Td or Tdap) DTaP/Tdap/Td Vaccines (2 - Td or Tdap) [facility] Start: 01-01-2031 Tetanus vaccination Tetanus: Every 10yrs [facility] Start: 09-10-2028 Lipid panel Lipid Panel [facility] Start: 03-14-2027 Lipid panel Lipid Panel [facility] Start: 09-28-2025 Screening for malignant neoplasm of cervix [facility] Start: 09-10-2024 Diabetes mellitus screening Diabetes Screening [facility] Start: 06-13-2024 [facility] Start: 05-20-2024 [facility] Start: 05-20-2024 Bacteria identified in Urine by Culture Urine Culture [facility] Start: 05-20-2024 [facility] Start: 04-28-2024 End: 04-28-2024 Patient encounter procedure 04/28/2024 2:20 PM EST Off ice Visit [facility] [address] [place] [address] Jhon Scott DO [address] [facility] [address] [place] [address] [facility] Start: 04-08-2024 End: 04-08-2024 Admission to same day surgery center 04/08/2024 10:50 AM EST - 04/08/2024 11:20 AM EST Surgery [facility] [address] [place] [address] Pal Booker MD [address] [place] [address] ESOPHAGOGASTRODUODENOSCOPY [facility] Comment on above: ESOPHAGOGASTRODUODENOSCOPY Start: 04-08-2024 End: 04-08-2024 Esophagogastroduodenoscopy transoral diagnostic ESOPHAGOGASTRODUODENOSCOPY Epigastric pain Nausea 04/08/2024 10:[address] [facility] Start: 04-08-2024 Subsequent hospital visit by physician [facility] Start: 12-26-2023 End: 12-26-2023 Patient encounter procedure 12/26/2023 1:40 PM EDT Off ice Visit [facility] [address] [facility] [address] [place] [address] Jhon Scott DO [address] [facility] [address] [place] [address] [facility] Start: 11-11-2023 COVID-19 Vaccine () COVID-19 Vaccine () [facility] Start: 11-11-2023 Influenza vaccination [facility] Start: 09-19-2023 End: 09-18-2024 25-hydroxyvitamin D3 [Mass/volume] in Serum or Plasma Vitamin D 25-Hydroxy,Total (for eval of Vitamin D levels) Lab Routine Vitamin D deficiency Expected: 09/19/2023 (Approximate), Expires: 09/18/2024 [facility] Work Phone: Comment on above: Expected: 09/19/2023 (Approximate), Expi res: 09/18/2024 Start: 09-19-2023 End: 09-18-2024 CBC W Auto Differential panel - Blood CBC and Auto Differential Lab Routine Iron deficiency Expected: 09/19/2023 (Approximate), Expires: 09/18/2024 [facility] Service Area Work Phone: Comment on above: Expected: 09/19/2023 (Approximate), Expi res: 09/18/2024 Start: 09-19-2023 End: 09-18-2024 Ferritin [Mass/volume] in Serum or Plasma Ferritin Lab Routine Iron deficiency Expected: 09/19/2023 (Approximate), Expires: 09/18/2024 [facility] Work Phone: Comment on above: Expected: 09/19/2023 (Approximate), Expi res: 09/18/2024 Start: 09-19-2023 End: 09-18-2024 Iron and Iron binding capacity panel - Serum or Plasma Iron and TIBC Lab Routine Iron deficiency Expected: 09/19/2023 (Approximate), Expires: 09/18/2024 [facility] Work Phone: Comment on above: Expected: 09/19/2023 (Approximate), Expi res: 09/18/2024 Start: 09-19-2023 End: 09-19-2023 Patient encounter procedure 09/19/2023 1:20 PM EDT Off ice Visit [facility] [address] [place] [address] Jhon Scott, DO [address] [place] [address] [facility] Start: 06-20-2023 End: 06-20-2023 Patient encounter procedure 06/20/2023 2:40 PM EDT Off ice Visit [facility] [address] [place] [phone] Jhon Scott, DO [address] [facility] [address] [place] [address] [facility] Start: 06-20-2023 End: 06-19-2024 25-hydroxyvitamin D3 [Mass/volume] in Serum or Plasma Vitamin D 25-Hydroxy,Total (for eval of Vitamin D levels) Lab Routine Routine general medical examination at a health care facility Expected: 06/20/2023 (Approximate), Expires: 06/19/2024 [facility] Work Phone: Comment on above: Expected: 06/20/2023 (Approximate), Expi res: 06/19/2024 Start: 06-20-2023 End: 06-19-2024 CBC W Auto Differential panel - Blood CBC and Auto Differential Lab Routine Routine general medical examination at a health care facility Expected: 06/20/2023 (Approximate), Expires: 06/19/2024 [facility] Service Area Work Phone: Comment on above: Expected: 06/20/2023 (Approximate), Expi res: 06/19/2024 Start: 06-20-2023 End: 06-19-2024 Comprehensive metabolic 2000 panel - Serum or Plasma Comprehensive Metabolic Panel Lab Routine Routine general medical examination at a health care facility Expected: 06/20/2023 (Approximate), Expires: 06/19/2024 [facility] Work Phone: Comment on above: Expected: 06/20/2023 (Approximate), Expi res: 06/19/2024 Start: 06-20-2023 End: 06-19-2024 Ferritin [Mass/volume] in Serum or Plasma Ferritin Lab Routine Routine general medical examination at a health care facility Expected: 06/20/2023 (Approximate), Expires: 06/19/2024 [facility] Work Phone: Comment on above: Expected: 06/20/2023 (Approximate), Expi res: 06/19/2024 Start: 06-20-2023 End: 06-19-2024 Hemoglobin A1c/Hemoglobin.total in Blood Hemoglobin A1C Lab Routine Routine general medical examination at a health care facility Expected: 06/20/2023 (Approximate), Expires: 06/19/2024 [facility] Work Phone: Comment on above: Expected: 06/20/2023 (Approximate), Expi res: 06/19/2024 Start: 06-20-2023 End: 06-19-2024 Iron and Iron binding capacity panel - Serum or Plasma Iron and TIBC Lab Routine Routine general medical examination at a health care facility Expected: 06/20/2023 (Approximate), Expires: 06/19/2024 [facility] Work Phone: Comment on above: Expected: 06/20/2023 (Approximate), Expi res: 06/19/2024 Start: 06-20-2023 End: 06-19-2024 Lipid 1996 panel - Serum or Plasma Lipid Panel Lab Routine Routine general medical examination at a health care facility Expected: 06/20/2023 (Approximate), Expires: 06/19/2024 [facility] Work Phone: Comment on above: Expected: 06/20/2023 (Approximate), Expi res: 06/19/2024 Start: 05-31-2023 Diabetes mellitus screening Diabetes Screening [facility] Start: 05-15-2023 End: 05-15-2023 Patient encounter procedure 05/15/2023 2:00 PM EST Off ice Visit [facility] [address] [phone] Jhon Scott, DO [address] [facility] [address] [place] [address] [facility] Start: 02-21-2023 End: 02-21-2023 Patient encounter procedure 02/21/2023 11:00 AM EST Of fice Visit [facility] [address] [phone] Jhon Scott DO [address] [address] [facility] Start: 11-14-2022 End: 11-14-2022 Patient encounter procedure 11/14/2022 1:20 PM EDT Off ice Visit [facility] [address] [phone] Jhon Scott DO [address] [address] [facility] Start: 11-10-2022 COVID-19 Vaccine ( season) COVID-19 Vaccine ( season) [facility] Start: 11-10-2022 Influenza vaccination [facility] Start: 08-15-2022 End: 08-15-2022 Patient encounter procedure 08/15/2022 1:40 PM EDT Off ice Visit [facility] [address] [phone] Jhon Scott DO [address] [address] [facility] Start: 06-22-2022 EPV, Provider: Jhon Scott, Status: Pen, Time: 2:00 PM EPV, Provider: Jhon Scott, Status: Pen, Time: 2:00 PM [facility] DO Work Phone: Start: 06-16-2022 End: 06-16-2022 Patient encounter procedure 06/16/2022 10:40 AM EDT Of fice Visit [facility] [address] [facility] [address] [place] [address] Jhon Scott, DO [address] [facility] [address] [place] [address] [facility] Start: 11-10-2021 Influenza vaccination Influenza Vaccine (#1) [facility] Start: 12-15-2020 Screening for malignant neoplasm of cervix [facility] Start: 07-31-2020 History and physical examination, annual for health maintenance Wellness Visit [facility] Start: 12-15-2018 Hepatitis B Vaccines (1 of 3 - 19+ 3-dose series) Hepatitis B Vaccines (1 of 3 - 19+ 3-dose series) [facility] Start: 12-15-2018 Pneumococcal Vaccine: Ped or At-Risk (1 of 2 - PCV) Pneumococcal Vaccine: Ped or At-Risk (1 of 2 - PCV) [facility] Start: 12-15-2018 Pneumococcal Vaccine: Pediatrics and At-Risk Adult Patients (1 of 2 - PCV) Pneumococcal Vaccine: Pediatrics and At-Risk Adult Patients (1 of 2 - PCV) [facility] Start: 12-15-2017 COVID-19 Vaccine (#1) COVID-19 Vaccine (#1) [facility] Start: 12-15-2017 Hepatitis C screening Hepatitis C Screening [facility] Start: 12-15-2014 HIV screening HIV Screening [facility] Start: 12-15-2014 HPV Vaccines (1 - 3-dose series) HPV Vaccines (1 - 3-dose series) [facility] Start: 12-15-2012 Varicella vaccination Varicella Vaccines (1 of 2 - 13+ 2-dose series) [facility] Start: 2011 Depression screening using PHQ-9 (Patient Health Questionnaire 9) score Depression Screening/Follow-Up (PHQ-2/9) [facility] Start: 12-15-2010 HPV Vaccines (1 - 2-dose series) HPV Vaccines (1 - 2-dose series) [facility] Start: 12-15-2005 Pneumococcal Vaccine: Pediatrics (0 to 5 Years) and At-Risk Patients (6 to 64 Years) (1 of 2 - PCV) Pneumococcal Vaccine: Pediatrics (0 to 5 Years) and At-Risk Patients (6 to 64 Years) (1 of 2 - PCV) [facility] Start: 12-15-2000 MMR Vaccines (1 of 1 - Standard series) MMR Vaccines (1 of 1 - Standard series) [facility] Start: 12-15-2000 Varicella vaccination Varicella Vaccines (1 of 2 - 2-dose childhood series) [facility] Start: 06-15-2000 COVID-19 Vaccine (#1) COVID-19 Vaccine (#1) [facility] Start: 1999 Hepatitis B Vaccines (1 of 3 - 3-dose series) Hepatitis B Vaccines (1 of 3 - 3-dose series) [facility] Start: 1999 HIV screening HIV Screening [facility] Start: 1999 Screening for Chlamydia trachomatis Chlamydia Screening [facility] Start: 1999 Yearly Adult Physical Yearly Adult Physical [facility] End: 03-06-2024 Bacteria identified in Urine by Culture [facility] Work Phone: Comment on above: Once (Lab) for 1 Occurrences starting until 03/06/2024 CBC W Auto Different ial panel - Blood [facility] CBC W Auto Different ial panel - Blood [facility] Drugs identified in Urine by Screen method [facility] Esophagogastroduoden oscopy transoral diagnostic ESOPHAGOGASTRODUODENOSCOPY Epigastric pain Nausea [facility] End: 03-06-2024 Extra Urine Joshi Tube [facility] Work Phone: Comment on above: Once for 1 Occurrences starting 03/06/20 24 until 03/06/2024 Hemoglobin A1c/Hemoglobin.total in Blood [facility] Hepatitis C antibody measurement [facility] Measurement of gluco se 2 hours after glucose challenge for glucose tolerance test [facility] Patient Education ED Abdominal P ain, Early [facility] Work Phone: Patient referral [facility] Work Phone: Rubella IgG measurement [facility] Serologic test for syphilis [facility] Treponema sp Ab [Pre sence] in Serum [facility] End: 03-06-2024 Urinalysis complete W Reflex Culture panel - Urine [facility] Service Area Work Phone: Comment on above: Once (Lab) for 1 Occurrences starting until 03/06/2024 Urine culture [facility] Immunizations Immunization Date Immunization Notes Care Provider Maikel gao 03-12-2020 tetanus toxoid, reduced diphtheria toxoid, and acellular pertussis vaccine, adsorbed Jhon A Scott Work Phone: [facility] 205 DO Work Phone: Comment on above: Series: 05-23-2018 influenza virus vaccine, unspecified formulation Elsa Duran [facility] Payers Date Payer Category Payer Self-pay 2024 [facility] ROB EHSAN UE/PREF/HMO/PPO [id number] 2024 [employer] [id number] 2024 Unknown [id number] 2023 [facility]iscellaneous or Other [facility] [id number]. 2.7.9.307054.400.315 2022 Unknown [id number] 2022 Private Health Insurance [facility] [id number] 2022-Present [address] [place] [address] [id number]. 2.7.3.024167.315 2021 Medicaid (Managed Care) [facility] COMMUN[facility] PLAN 1.2.840.993261.1.13.385. 2.7.9.794422.275.315 2017 Unknown 2000 Unknown [id number] 2.16.840.1.701762.3.579. 2.651 1999 Unknown [id number] 2.16.840.1.687889.3.579. 2.356 1999 Unknown [id number] 2.16.840.1.202290.3.579. 2.356 1999 Unknown [id number] 2.16.840.1.080523.3.579. 2.1245 1999 Unknown [id number] 2.16.840.1.992659.3.579. 2.1245 1999 Unknown [id number] 2.16.840.1.338940.3.579. 2.1243 1999 Unknown [id number] 2.16.840.1.489682.3.579. 2.1244 1999 Unknown [id number] 2.16.840.1.359164.3.579. 2.1244 1999 Unknown [id number] 2.16.840.1.271393.3.579. 2.1244 1999 Unknown [id number] 2.16.840.1.036895.3.579. 2.1244 1999 Unknown [id number] 2.16.840.1.630667.3.579. 2.902 1999 Unknown [id number] 2.16.840.1.601587.3.579. 2.903 1999 Unknown [id number] 2.840.1.112295.3.579. 2.903 1999 Unknown [id number] 2.840.1.254143.3.579. 2.479 1999 Unknown [id number] 2.840.1.085702.3.579. 2.479 1978 Unknown [id number] 2.840.1.164605.3.579. 2.717 Private Health Insurance [id number] Unknown [id number] Unknown [id number] Unknown [id number] Unknown [id number] 840.1.175985.3.579. 2.462 Unknown [id number] 840.1.800332.3.579. 2.462 Unknown [id number] 840.1.660560.3.579. 2.462 Unknown [id number] 840.1.630923.3.579. 2.462 Unknown [id number] 840.1.689825.3.579. 2.462 Unknown [id number] 840.1.388812.3.579. 2.462 Unknown [id number] 840.1.919024.3.579. 2.462 Unknown [id number] 840.1.140554.3.579. 2.462 Unknown [id number] 840.1.453844.3.579. 2.462 Unknown [id number] 840.1.005371.3.579. 2.462 Unknown [id number] 2840.1.363211.3.579. 2.462 Unknown [id number] 840.1.087622.3.579. 2.462 Unknown [id number] 2.16.840.1.261284.3.579. 2.462 Unknown [id number] 2.16.840.1.016636.3.579. 2.462 Social History Date Type Detail Facility Start: 07-18-2022 End: 04-03-2024 Nicotine dependence due to vaping tobacco product Nicotine dependence due to vaping tobacco product [facility] 205 DO Work Phone: Start: 06-02-2022 End: 06-13-2024 Tobacco smoking status NHIS Ex-smoker [facility] History of tobacco use Current smoker [facility] Work Phone: History of tobacco use [facility] Start: 03-24-2021 End: 06-02-2022 Tobacco use and exposure Smokeless tobacco non-user [facility] Work Phone: Start: 07-18-2022 End: 04-03-2024 Tobacco use panel [facility] Start: 2000 Sex Assigned At Not on file [facility] Work Phone: Start: 05-23-2022 End: 03-06-2024 Exposure to SARS-CoV-2 (event) Not sure [facility] Start: 05-20-2023 End: 04-03-2024 Alcohol intake Ex-drinker (finding) [facility] Work Phone: Start: 03-24-2021 Gender identity Identifies as female gender (finding) [facility] Start: 03-24-2021 Sexual orientation Heterosexual (finding) [facility] Start: 12-28-2019 Vapor Vapor [facility] Start: 05-20-2024 End: 06-24-2024 Sex Female (finding) [facility] Start: 2000 Sex Assigned At Female [facility] Clinical Notes 03-13-2022 to 09-11-2024 Note Date & Type Note Facility 09-11-2024 Progress note [facility] 06-13-2024 Discharge summary [facility] 06-13-2024 Radiology Diagnostic study note [facility] Imaging Services [address] [place] [address] Transvaginal w/Preg US MR#: [id number] Acct: [id number] Name: RADHA BOONE Rep #: [id number] : 2000 F 23 From: Cristian Spear MD PCP: JHON SCOTT DO Status: REG ER Study:Transvaginal w/Preg US Date of Exam: 06/13/24 Exam# [id number] Ordering Dr: Sonal Escudero MD PROCEDURE: TRANSVAGINAL W/PREG US 06/13/2024 REASON FOR EXAM: R PELVIC PAIN TECHNIQUE: Transabdominal and transvaginal imaging with Doppler COMPARISON: 05/20/2024 FINDINGS: Single live intrauterine with heart rate 159 beats per minute. Estimated gestational age by gestational sac 10 weeks and 5 days, crown-rump length 11 weeks and 5 days. Estimated gestational age by ultrasound 11 weeks and 2 days, RICHARD 10 05/01/2024 Estimated gestational age by LMP 11 weeks 2 days, RICHARD 12/31/2021 by No chelo sac hemorrhage seen. The cervix appears closed. The uterus measures 12 x 8.7 x 7.3 cm and appears within limits. The right ovary measures 3.4 x 1.7 x 1.6 cm. The left ovary measures 3.3 x 1.9 x 2.5 cm. The left ovary contains a hypoechoic focus measuring 2.1 x 1.6 x 1.5 cm, possible corpus luteum cyst. The ovaries appear within limits with bilateral arterial and venous flow seen. No adnexal mass identified. No free fluid seen. US/Transvaginal w/Preg US IMPRESSION: Single live intrauterine as above. Reading Location: [id number] CC: Dr. Rubens Escudero MD; JHON SCOTT DO ~ Distillation Operator Helper: Signed [facility] 06-13-2024 Radiology Diagnostic study note [facility] Imaging Services [address] [place] [address] Kidney and Bladder MR#: [id number] Acct: [id number] Name: RADHA BOONE Rep #: [id number] : 2000 F 23 From: Cristian Spear MD PCP: JHON SCOTT DO Status: REG ER Study:Kidney and Bladder Date of Exam: 0 06/13/24 Exam# [id number] Ordering Dr: Sonal Escudero MD PROCEDURE: KIDNEY AND BLADDER 06/13/2024 REASON FOR EXAM: RLQ PAIN, 11 WKS PREG TECHNIQUE: Bilateral renal and bladder ultrasound. COMPARISON: None available FINDINGS: The bladder measures 120 cc with a wall thickness of 3 mm and appears within limits. Bilateral ureteral jets are noted during imaging. The distal ureters are not identified. The right kidney measures 11.6 x 7.4 x 4.4 cm with a cortical thickness of 1 cm. The left kidney measures 12.2 x 6.1 x 5.4 cm with a cortical thickness of 1.3 cm. The kidneys appear within limits for echogenicity without stones, hydronephrosis or perinephric edema seen. No free fluid seen. US/Kidney and Bladder IMPRESSION: The study appears within limits. Reading Location: [facility] CC: Dr. Rubens Escudero MD; JHON SCOTT DO ~ Distillation Operator Helper: Signed [facility] 06-13-2024 Discharge summary Note Date/Time June 13, 2024 8:58pm [facility] Medical Records Department [address] [place] [address] Emergency Department Summary 06/13/24 MR#: [id number] Acct: [id number] Name: RADHA BOONE Rep #:[id number] : 2000 23 From: Rubens Escudero MD PCP: JHON SCOTT DO Status:REG ER Location: ED HPI HPI - GI History of Present Illness Chief Complaint: Abd Pain Informant: patient Narrative Narrative: 23-year-old female 11 weeks sent over by OB because of tenderness in right lower quadrant and pain that she has had off-and-on for the past 4 days, concern for possible appendicitis. They did an ultrasound in the office showed that the baby looked good. She has a subchorionic hemorrhage. Patient states that she had bleeding when she was 8 weeks along for couple days, which is when she was diagnosed with a subchorionic hemorrhage. She has had no bleeding sincethen until today when she started spotting. She states the pain has been intermittent. She states for the most part it has been brief, where she will suddenly feel a sharp pain in her right lower quadrant and then it will go away less than a minute. This is been occurring multiple times during the day. She been nauseated throughout her , no vomiting, that has not changed recently. No changes in her appetite in last 4 to 5 days, she states she takes small amounts of food frequently throughout the day because it keeps her nausea controlled and it is not changed. Denies any pain into the flank or the back. No history of kidney stones but states her mom has a strong history of them. She states she has urinary frequency for the past several weeks that she attributes to , no changes in that no dysuria or hematuria. [facility] Medical History Seasonal allergies Depression Anxiety Home Medications ?Medication ?Instructions ?Recorded ?Last Taken ?Type vit no.105-iron 30 1 ea PO DAILY 12/28/19 History mg-folic acid 1.4 mg-dha 300 mg oral pack cholecalciferol (vitamin D3) 50 50 mcg PO QDAY 5 Unknown History mcg (2,000 unit) capsule escitalopram oxalate 20 mg tablet 20 mg PO QDAY Unknown History (Lexapro) omeprazole 20 mg capsule,delayed 20 mg PO QDAY 5 Unknown History release Allergy/AdvReac Type Severity Reaction Status Date / Time No Known Allergies Allergy Verified 06/13/24 16:24 Family History Mother Thyroid disorder, Onset Age: 38 Hypothyroid Diabetes GDM with both pregnancies Grandmother Thyroid disorder, Onset Age: 55 Maternal-thyroid nodules benign Diabetes Maternal type 2 Grandmother Diabetes Paternal type 2 Surgical History Previous section [place] teeth extracted Social History adopted: No household members: spouse and children housing: house number of children: 1 current occupational status: unemployed current occupation: [employer] pets and animals: Yes (Avoid litterbox) pets and animals: cat(s) and dog(s) history of recent travel: No sexually active: Yes Smoking Status: Former smoker quit date: 01/11/24 pack-years: 3 Electronic Cigarette Use: with nicotine second hand exposure: No quit status: quit date established alcohol intake: current alcohol intake frequency: holidays/special occasions only details: not while substance use type: former substance user Date of last use: last used 03/25/24 and marijuana well-balanced diet: daily or most days caffeine: Yes Type: coffee Number of servings: 1 eating out: 1-3 times/week during the past year weight has: decreased > 10 lbs what type of physical activity do you participate in: none janet/amish: Mosque seatbelt use: always do you feel safe at home: Yes 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 Constitutional Constitutional ED: Denies chills or fever(s) Eyes Eyes: Denies change in vision or diplopia ENT ENT ED: Denies rhinorrhea or sore throat Cardiovascular Cardiovascular: Denies chest pain or palpitations Respiratory/Chest Respiratory/Chest: Denies cough or dyspnea Gastrointestinal Gastrointestinal: Reports abdominal pain and nausea; Denies diarrhea or vomiting Genitourinary Genitourinary ED: Reports as per HPI and urinary frequency; Denies dysuria or hematuria Musculoskeletal Musculoskeletal: Denies back pain or neck pain Integumentary Denies abscess or rash Neurologic Neurologic: Denies headache(s), paresthesias or weakness Psychiatric Psychiatric: Denies anxiety or suicidal thoughts EXAM Physical Exam Const Vital Signs: 06/13/24 16:24 06/13/24 19:02 Temperature 98.2 F Temperature Source Oral Pulse Rate 76 75 Respiratory Rate 16 Blood Pressure 131/89 H 145/91 H Blood Pressure Mean 103 109 Pulse Ox 99 99 Oxygen Delivery Method Room Air Room Air Positive well nourished and well developed General Appearance ED: well developed and NAD HEENT Reports moist mucous membranes normocephalic and atraumatic Eyes PERRL and EOMs intact bilaterally Neck full ROM and supple Resp normal respiratory effort and clear to auscultation bilaterally Cardio regular rate, regular rhythm and no murmurs GI non-distended GI Narrative: Tenderness is present at McBurney's point and also a little more distal to this toward her ASIS, little more prominent distally than at McBurney's point. No other areas of tenderness. No guarding or rebound. Auscultation: normoactive bowel sounds Palpation: soft Back/Spine no CVA tenderness General Back: other FROM Extremity normal to inspection General Extremety ED: Negative for edema, pulses abnormal or tenderness General Extremity: Negative for edema or pulses abnormal Neuro oriented x3, CN's II-XII intact bilaterally and no sensory deficits noted Sensorium / Orientation: awake and alert Motor Exam: strength 5/5 throughout Skin no rashes or lesions noted and no wounds MDM MDM MDM Narrative Medical decision making narrative: As I discussed with this patient, the only way to definitively rule out appendicitis emergently is with a CT. We do not have ultrasound that does appendix scans. She really does not want a CT if she does not needed which I certainly understand. We can start with blood work and an ultrasound of the kidneys and bladder. Appendicitis certainly is in the differential diagnosis asis ureterolithiasis, ligament pain, she is not examining like this is torsion, she is very comfortable being with examination. Provide blood count comes back at 8.7 with no leftward shift, arguing against acute appendicitis after having pain for [address]. [address] Ervin Chris was in agreement, and we discussed the ultrasound that I had ordered on her kidneys and bladder, and after discussing all of this we both thought it wasa good idea to add her ovaries on since she had not had the ultrasound yet. I reviewed the images of both of these orders and the reports which I reviewed andagree with, they are negative for any acute. At this time I think the patient can be safely discharged home to follow-up as an outpatient. She is comfortablewith that plan as well we discussed reasons to return. Lab Data Attestation: I reviewed the patient's lab results. Labs: Laboratory Results - last 24 hr 06/13/24 06/13/24 16:47 17:05 WBC 8.7 RBC 4.51 Hgb 13.3 Hct 37.8 MCV 83.8 MCH 29.5 MCHC 35.2 RDW Std Deviation 39.9 RDW Coeff of Benjamin 13.1 Plt Count 257 MPV 9.2 Immature Gran % (Auto) 0.200 Neut % (Auto) 66.2 Lymph % (Auto) 25.9 Coleman % (Auto) 5.4 Eos % (Auto) 2.0 Baso % (Auto) 0.3 Absolute Neuts (auto) 5.7 Absolute Lymphs (auto) 2.25 Nucleated RBC % 0 Sodium 137 Potassium 3.9 Chloride 104 Carbon Dioxide 21.8 Anion Gap 12 BUN 6 Creatinine 0.58 L Estim Creat Clear Calc 194.36 Est GFR (MDRD) Non-Af 130 BUN/Creatinine Ratio 10.0 Glucose 96 Calcium 9.2 Urine Color Yellow Urine Clarity Sl. Cloudy Urine pH 6.0 Ur Specific [place] 1.020 Urine Protein Negative Urine Glucose (UA) Normal Urine Ketones Negative Urine Occult Blood Negative Urine Nitrite Negative Urine Bilirubin Negative Urine Urobilinogen Normal Ur Leukocyte Esterase Negative Urine RBC 0 SEEN Urine WBC 0 SEEN Ur Squamous Epith Cells 0-5 SEEN Amorphous Sediment 1+ URATE Urine Bacteria 0 SEEN Urine Mucus 0 SEEN Radiography Diagnostic Testing: Clinical Impression(s) from Imaging Studies Renal Ultrasound 06/13/24 16:54 IMPRESSION: The study appears within limits. Reading Location: [facility] Obstetrics Ultrasound 06/13/24 18:00 IMPRESSION: Single live intrauterine as above. Reading Location: [facility] Discharge Plan Triage Chief Complaint: Abd Pain ED Provider: Rubens Escudero Dx/Rx/DC Orders Clinical Impression: Abdominal pain of right lower quadrant during , antepartum Instructions: ED Abdominal Pain, Early Prescriptions: No Action escitalopram oxalate [Lexapro] 20 mg tablet 20 mg PO QDAY omeprazole 20 mg capsule,delayed release(DR/EC) 20 mg PO QDAY cholecalciferol (vitamin D3) 50 mcg (2,000 unit) capsule 50 mcg PO QDAY 898-nolo-tynsk ac-dha 1 EACH combo pack 1 ea PO DAILY Primary Care Provider: JHON SCOTT Referrals: Ana Laura Mercado MD [Med Staff - Active Staff] - 3-5 Days if not improving Print Language: [place] Disposition Disposition: Home, Self Care What to do if you have Problems For any increased pain, shortness of breath, bleeding, nausea or vomiting, chestpain, or any unexpected problems, contact your Primary Care Provider. Call [facility] ([phone]) or report to the closest Emergency Room. Call 911 if necessary. 06/13/242057 <Electronically signed by Rubens Escudero MD> Cosigner Signature (if applicable): CC: Dr. Ana Laura Mercado MD; JHON SCOTT DO ~ Signed [facility] Work Phone: 1(623) 184-517603-14-2025 Evaluation note* Diagnosis Onset Date Resolution Status Admit Date Hiatal hernia acute May 23, 2024 10:46am History of nicotine vaping acute May 23, 2024 10:46am Marijuana smoker in remission acute May 23, 2024 10:46am Obesity affecting acute May 23, 2024 10:46am acute May 23 10:46am Premature ventricular contractions acute May 23, 2024 10:46am Previous section acute May 23, 2024 10:46am Supervision of high-risk acute May 23, 2024 10:46am Vaginal bleeding affecting early inactive May 23, 2024 10:46am [facility] Work Phone: 1(998) 644-935103-14-2025 Evaluation note* Diagnosis Onset Date Resolution Status Admit Date Hiatal hernia acute May 23, 2024 10:46am History of nicotine vaping acute May 23, 2024 10:46am Marijuana smoker in remission acute May 23, 2024 10:46am Obesity affecting acute May 23, 2024 10:46am acute May 23 10:46am Premature ventricular contractions acute May 23, 2024 10:46am Previous section acute May 23, 2024 10:46am Supervision of high-risk acute May 23, 2024 10:46am Vaginal bleeding affecting early inactive May 23, 2024 10:46am Hiatal hernia acute June 13, 2024 3:47pm History of nicotine vaping acute June 13, 2024 3:47pm Marijuana smoker in remission acute June 13, 2024 3:47pm Obesity affecting acute June 13, 2024 3:47pm acute June 13 3:47pm Premature ventricular contractions acute June 13, 2024 3:47pm Previous section acute June 13, 2024 3:47pm Supervision of high-risk acute June 13, 2024 3:47pm [facility] Work Phone: 1(928) 671-865903-14-2025 Evaluation note* Diagnosis Onset Date Resolution Status Admit Date Hiatal hernia acute May 23, 2024 10:46am History of nicotine vaping acute May 23, 2024 10:46am Marijuana smoker in remission acute May 23, 2024 10:46am Obesity affecting acute May 23, 2024 10:46am acute May 23 10:46am Premature ventricular contractions acute May 23, 2024 10:46am Previous section acute May 23, 2024 10:46am Supervision of high-risk acute May 23, 2024 10:46am Vaginal bleeding affecting early inactive May 23, 2024 10:46am Hiatal hernia acute June 13, 2024 3:47pm History of nicotine vaping acute June 13, 2024 3:47pm Marijuana smoker in remission acute June 13, 2024 3:47pm Obesity affecting acute June 13, 2024 3:47pm acute June 13 3:47pm Premature ventricular contractions acute June 13, 2024 3:47pm Previous section acute June 13, 2024 3:47pm Supervision of high-risk acute June 13, 2024 3:47pm Hiatal hernia acute June 19, 2024 2:55pm History of nicotine vaping acute June 19, 2024 2:55pm Marijuana smoker in remission acute June 19, 2024 2:55pm Obesity affecting acute June 19, 2024 2:55pm acute June 19 2:55pm Premature ventricular contractions acute June 19, 2024 2:55pm Previous section acute June 19, 2024 2:55pm Supervision of high-risk acute June 19, 2024 2:55pm Abdominal pain of right lowe r quadrant during , antepartum inactive June 19, 2024 2:55pm [facility] Work Phone: 1(767) 174-158203-14-2025 Evaluation note* Diagnosis Onset Date Resolution Status Admit Date Hiatal hernia acute May 23, 2024 10:46am History of nicotine vaping acute May 23, 2024 10:46am Marijuana smoker in remission acute May 23, 2024 10:46am Obesity affecting acute May 23, 2024 10:46am acute May 23 10:46am Premature ventricular contractions acute May 23, 2024 10:46am Previous section acute May 23, 2024 10:46am Supervision of high-risk acute May 23, 2024 10:46am Vaginal bleeding affecting early inactive May 23, 2024 10:46am Hiatal hernia acute June 13, 2024 3:47pm History of nicotine vaping acute June 13, 2024 3:47pm Marijuana smoker in remission acute June 13, 2024 3:47pm Obesity affecting acute June 13, 2024 3:47pm acute June 13 3:47pm Premature ventricular contractions acute June 13, 2024 3:47pm Previous section acute June 13, 2024 3:47pm Supervision of high-risk acute June 13, 2024 3:47pm Hiatal hernia acute June 19, 2024 2:55pm History of nicotine vaping acute June 19, 2024 2:55pm Marijuana smoker in remission acute June 19, 2024 2:55pm Obesity affecting acute June 19, 2024 2:55pm acute June 19 2:55pm Premature ventricular contractions acute June 19, 2024 2:55pm Previous section acute June 19, 2024 2:55pm Supervision of high-risk acute June 19, 2024 2:55pm Abdominal pain of right lowe r quadrant during , antepartum inactive June 19, 2024 2:55pm Hiatal hernia acute June 30, 2024 11:20am History of nicotine vaping acute June 30, 2024 11:20am Marijuana smoker in remission acute June 30, 2024 11:20am Obesity affecting acute June 30, 2024 11:20am acute June 30 11:20am Premature ventricular contractions acute June 30, 2024 11:20am Previous section acute June 30, 2024 11:20am Supervision of high-risk acute June 30, 2024 11:20am Hiatal hernia acute July 16 10:21am History of nicotine vaping acute July 16, 2024 10:21am Marijuana smoker in remission acute July 16, 2024 10:21am Obesity affecting acute July 16, 2024 10:21am acute July 16, 2024 10:21am Premature ventricular contractions acute July 16, 2024 10 :21am Previous section acute July 16, 2024 10:21am Supervision of high-risk acute July 16, 2024 10 :21am Hiatal hernia acute July 21, 2 025 3:17pm History of nicotine vaping acute July 21, 2024 3:17pm Marijuana smoker in remission acute July 21, 2024 3:17pm Obesity affecting acute July 21, 2024 3:17pm acute July 21, 2024 3:17pm Premature ventricular contractions acute July 21, 2024 3 :17pm Previous section acute July 21, 2024 3:17pm Supervision of high-risk acute July 21, 2024 3 :17pm Complete placenta previa nos or without hemorrhage, second trimester acute August 11, 2024 9 :55am Hiatal hernia acute August 11 9:55am History of nicotine vaping acute August 11, 2024 9:55am Marijuana smoker in remission acute August 11, 2024 9:55am Obesity affecting acute August 11, 2024 9:55am acute August 11, 2024 9:55am Premature ventricular contractions acute August 11, 2024 9 :55am Previous section acute August 11, 2024 9:55am Supervision of high-risk acute August 11, 2024 9 :55am [facility] Work Phone: 1(735) 371-335603-14-2025 Evaluation note* Diagnosis Onset Date Resolution Status Admit Date Hiatal hernia acute May 23, 2024 10:46am History of nicotine vaping acute May 23, 2024 10:46am Marijuana smoker in remission acute May 23, 2024 10:46am Obesity affecting acute May 23, 2024 10:46am acute May 23 10:46am Premature ventricular contractions acute May 23, 2024 10:46am Previous section acute May 23, 2024 10:46am Supervision of high-risk acute May 23, 2024 10:46am Vaginal bleeding affecting early inactive May 23, 2024 10:46am Hiatal hernia acute June 13, 2024 3:47pm History of nicotine vaping acute June 13, 2024 3:47pm Marijuana smoker in remission acute June 13, 2024 3:47pm Obesity affecting acute June 13, 2024 3:47pm acute June 13 3:47pm Premature ventricular contractions acute June 13, 2024 3:47pm Previous section acute June 13, 2024 3:47pm Supervision of high-risk acute June 13, 2024 3:47pm Hiatal hernia acute June 19, 2024 2:55pm History of nicotine vaping acute June 19, 2024 2:55pm Marijuana smoker in remission acute June 19, 2024 2:55pm Obesity affecting acute June 19, 2024 2:55pm acute June 19 2:55pm Premature ventricular contractions acute June 19, 2024 2:55pm Previous section acute June 19, 2024 2:55pm Supervision of high-risk acute June 19, 2024 2:55pm Abdominal pain of right lowe r quadrant during , antepartum inactive June 19, 2024 2:55pm Hiatal hernia acute June 30, 2024 11:20am History of nicotine vaping acute June 30, 2024 11:20am Marijuana smoker in remission acute June 30, 2024 11:20am Obesity affecting acute June 30, 2024 11:20am acute June 30 11:20am Premature ventricular contractions acute June 30, 2024 11:20am Previous section acute June 30, 2024 11:20am Supervision of high-risk acute June 30, 2024 11:20am Hiatal hernia acute July 16 10:21am History of nicotine vaping acute July 16, 2024 10:21am Marijuana smoker in remission acute July 16, 2024 10:21am Obesity affecting acute July 16, 2024 10:21am acute July 16, 2024 10:21am Premature ventricular contractions acute July 16, 2024 10 :21am Previous section acute July 16, 2024 10:21am Supervision of high-risk acute July 16, 2024 10 :21am Hiatal hernia acute July 21, 025 3:17pm History of nicotine vaping acute July 21, 2024 3:17pm Marijuana smoker in remission acute July 21, 2024 3:17pm Obesity affecting acute July 21, 2024 3:17pm acute July 21, 2024 3:17pm Premature ventricular contractions acute July 21, 2024 3 :17pm Previous section acute July 21, 2024 3:17pm Supervision of high-risk acute July 21, 2024 3 :17pm Complete placenta previa nos or without hemorrhage, second trimester acute August 11, 2024 9 :55am History of nicotine vaping acute August 11, 2024 9:55am Marijuana smoker in remission acute August 11, 2024 9:55am Obesity affecting acute August 11, 2024 9:55am acute August 11, 2024 9:55am Premature ventricular contractions acute August 11, 2024 9 :55am Previous section acute August 11, 2024 9:55am Supervision of high-risk acute August 11, 2024 9 :55am [facility] Work Phone: [phone] Discharge summary [facility] Medical Records Department [address] [place] [address] Emergency Department Summary 05/20/24 MR#: [id number] Acct: [id number] Name: RADHA BOONE Rep #:[id number] : 2000 23 From: Brody Cleaning DO PCP: JHON SCOTT DO Status:REG ER Location: ED HPI HPI - Female History of Present Illness Chief Complaint: Vag Bld, Preg Narrative Narrative: Patient is a 23-year-old female who presents to the emergency department with a chief complaint of vaginal bleeding. Patient states that she currently is 8 weeks and 2 days ago she noted that she had some vaginal spotting. She states that today when she woke up and went to the bathroom noted that thiswas slightly heavier and more dark in nature. She states that she does have appointment on Sunday with [facility] however states that she feels extremely anxious and wanted to know if the baby is okay prompting her to come here for further evaluation management. Patient states that she did have subchorionic hemorrhage with her first child however this resolved on its own and she had no other complications during her . Patient did note that approximately 2days prior to this starting she did have intercourse. Patient denies any abdominal pain or cramping. [facility] Medical History Seasonal allergies Depression Anxiety Home Medications ?Medication ?Instructions ?Recorded ?Last Taken ?Type vit no.105-iron 30 1 ea PO DAILY 12/28/19 History mg-folic acid 1.4 mg-dha 300 mg oral pack cholecalciferol (vitamin D3) 50 50 mcg PO QDAY 5 Unknown History mcg (2,000 unit) capsule escitalopram oxalate 20 mg tablet 20 mg PO QDAY Unknown History (Lexapro) omeprazole 20 mg capsule,delayed 20 mg PO QDAY 5 Unknown History release Allergy/AdvReac Type Severity Reaction Status Date / Time No Known Allergies Allergy Verified 05/20/24 11:11 Family History Mother Thyroid disorder, Onset Age: 38 Hypothyroid Diabetes GDM with both pregnancies Grandmother Thyroid disorder, Onset Age: 55 Maternal-thyroid nodules benign Diabetes Maternal type 2 Grandmother Diabetes Paternal type 2 Surgical History Previous section [place] teeth extracted Social History adopted: No household members: spouse and children housing: house number of children: 1 current occupational status: unemployed current occupation: [employer] pets and animals: Yes (Avoid litterbox) pets and animals: cat(s) and dog(s) history of recent travel: No sexually active: Yes Smoking Status: Former smoker quit date: 01/11/24 pack-years: 3 Electronic Cigarette Use: with nicotine second hand exposure: No quit status: quit date established alcohol intake: current alcohol intake frequency: holidays/special occasions only details: not while substance use type: former substance user Date of last use: last used 03/25/24 and marijuana well-balanced diet: daily or most days caffeine: Yes Type: coffee Number of servings: 1 eating out: 1-3 times/week during the past year weight has: decreased > 10 lbs what type of physical activity do you participate in: none janet/amish: Mosque seatbelt use: always do you feel safe at home: Yes 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 [employer] ROS ROS ED ROS Narrative Constitutional: Denies fevers, chills, headaches Abdomen: Denies abdominal pain nausea vomit diarrhea : Complains of vaginal spotting as noted above denies any painful urination Neurological: Denies numbness, weakness, tingling Musculoskeletal: Denies back pain Skin: Denies rashes or lesions EXAM Physical Exam Narrative Exam Narrative: General: Patient was lying in bed rest comfortably did not appear to be in acutedistress Head: Atraumatic, normocephalic Eyes: PERRL bilaterally, EOMI bilaterally, no conjunctival injection noted Neck: Soft, supple, trachea midline Cardiovascular: Regular rate and rhythm no murmurs gallops rubs noted Respiratory: Clear to auscultation bilaterally Abdomen: Soft, nondistended, no tenderness palpation Const Vital Signs: 05/20/24 11:10 05/20/24 13:09 05/20/24 15:00 Temperature 97.1 F L Temperature Source Temporal Pulse Rate 101 H 78 78 Respiratory Rate 20 H 16 16 Blood Pressure 122/89 H 112/89 H 116/80 Blood Pressure Mean 100 96 92 Pulse Ox 98 98 98 Oxygen Delivery Method Room Air MDM MDM MDM Narrative Medical decision making narrative: Patient is a 23-year-old female who presented to the emergency department chief complaint of vaginal spotting while 8 weeks . On the differential diagnose includes but limited to ectopic , UTI, threatened , subchorionic hemorrhage. Once workup is obtained reviewed she will be reevaluated. The patient CBC reviewed and showed no evidence leukocytosis white blood count was 0.2, he was 13.6, plate count noted be 250. Patient sodium 138, potassium normal 3.7, creatinine 0.59. Patient AST and ALT of 217 and 17 respectively, hCG quant was 52,866. Patient's urinalysis showed no evidence of infection. Patient's ultrasound was reviewed and showed a single live intrauterine gestational sac 17 mm pole corresponding to gestational age of 8 weeks expected delivery date of 12/30/2024. There is a small 1.1 cm suspected perigestational hemorrhage may account for the patient presentation.Simple appearing 1.1 cm right adnexal cyst. Recommend routine complete anatomic surveyat 20 weeks. I called on-call [facility] LE[facility] for [facility] Dr. Freedman who states that the patient be placed on pelvic rest no heavy lifting no exercising. I discussed this plan with the patient she is agreeable this plan she has to follow-up on Sunday with them as well I gave her a hard copy of her ultrasound results. She is encouraged return with worsening symptoms or concerns. All question concerns answered she was discharged home in stable condition. Lab Data Labs: Laboratory Results - last 24 hr 05/20/24 05/20/24 05/20/24 11:57 11:57 11:57 WBC RBC Hgb Hct MCV MCH MCHC RDW Std Deviation RDW Coeff of Benjamin Plt Count MPV Immature Gran % (Auto) Neut % (Auto) Lymph % (Auto) Coleman % (Auto) Eos % (Auto) Baso % (Auto) Absolute Neuts (auto) Absolute Lymphs (auto) Nucleated RBC % Sodium Potassium Chloride Carbon Dioxide Anion Gap BUN Creatinine Estim Creat Clear Calc Est GFR (MDRD) Non-Af BUN/Creatinine Ratio Glucose Calcium Total Bilirubin AST ALT Alkaline Phosphatase Total Protein Albumin Globulin Albumin/Globulin Ratio HCG, Quant Serum , Qual Urine Color Straw Cancelled Urine Clarity Clear Cancelled Urine pH 7.0 Ur Specific [place] U Specif Grav (Refrac) Urine Protein Urine Glucose (UA) Urine Ketones Urine Occult Blood Urine Nitrite Urine Bilirubin Urine Urobilinogen Ur Leukocyte Esterase Urine RBC Urine WBC Ur Squamous Epith Cells Ur Transition Epith Cell Ur Renal Epithelial Cell Calcium Oxalate Crystal Uric Acid Crystals Triple Phos Crystals Other Crystals Amorphous Sediment Urine Bacteria Hyaline Casts Fine Granular Casts Coarse Granular Casts Waxy Casts RBC Casts WBC Casts Urine Mucus Urine Trichomonas Urine Yeast Blood Type 05/20/24 05/20/24 05/20/24 11:57 11:57 11:57 WBC RBC Hgb Hct MCV MCH MCHC RDW Std Deviation RDW Coeff of Benjamin Plt Count MPV Immature Gran % (Auto) Neut % (Auto) Lymph % (Auto) Coleman % (Auto) Eos % (Auto) Baso % (Auto) Absolute Neuts (auto) Absolute Lymphs (auto) Nucleated RBC % Sodium Potassium Chloride Carbon Dioxide Anion Gap BUN Creatinine Estim Creat Clear Calc Est GFR (MDRD) Non-Af BUN/Creatinine Ratio Glucose Calcium Total Bilirubin AST ALT Alkaline Phosphatase Total Protein Albumin Globulin Albumin/Globulin Ratio HCG, Quant Serum , Qual Urine Color Urine Clarity Urine pH Cancelled Ur Specific [place] 1.005 Cancelled U Specif Grav (Refrac) Cancelled Urine Protein Negative Cancelled Urine Glucose (UA) Normal Urine Ketones Urine Occult Blood Urine Nitrite Urine Bilirubin Urine Urobilinogen Ur Leukocyte Esterase Urine RBC Urine WBC Ur Squamous Epith Cells Ur Transition Epith Cell Ur Renal Epithelial Cell Calcium Oxalate Crystal Uric Acid Crystals Triple Phos Crystals Other Crystals Amorphous Sediment Urine Bacteria Hyaline Casts Fine Granular Casts Coarse Granular Casts Waxy Casts RBC Casts WBC Casts Urine Mucus Urine Trichomonas Urine Yeast Blood Type 05/20/24 05/20/24 05/20/24 11:57 11:57 11:57 WBC RBC Hgb Hct MCV MCH MCHC RDW Std Deviation RDW Coeff of Benjamin Plt Count MPV Immature Gran % (Auto) Neut % (Auto) Lymph % (Auto) Coleman % (Auto) Eos % (Auto) Baso % (Auto) Absolute Neuts (auto) Absolute Lymphs (auto) Nucleated RBC % Sodium Potassium Chloride Carbon Dioxide Anion Gap BUN Creatinine Estim Creat Clear Calc Est GFR (MDRD) Non-Af BUN/Creatinine Ratio Glucose Calcium Total Bilirubin AST ALT Alkaline Phosphatase Total Protein Albumin Globulin Albumin/Globulin Ratio HCG, Quant Serum , Qual Urine Color Urine Clarity Urine pH Ur Specific [place] U Specif Grav (Refrac) Urine Protein Urine Glucose (UA) Cancelled Urine Ketones Negative Cancelled Urine Occult Blood 10 H Cancelled Urine Nitrite Negative Urine Bilirubin Urine Urobilinogen Ur Leukocyte Esterase Urine RBC Urine WBC Ur Squamous Epith Cells Ur Transition Epith Cell Ur Renal Epithelial Cell Calcium Oxalate Crystal Uric Acid Crystals Triple Phos Crystals Other Crystals Amorphous Sediment Urine Bacteria Hyaline Casts Fine Granular Casts Coarse Granular Casts Waxy Casts RBC Casts WBC Casts Urine Mucus Urine Trichomonas Urine Yeast Blood Type 05/20/24 05/20/24 05/20/24 11:57 11:57 11:57 WBC RBC Hgb Hct MCV MCH MCHC RDW Std Deviation RDW Coeff of Benjamin Plt Count MPV Immature Gran % (Auto) Neut % (Auto) Lymph % (Auto) Coleman % (Auto) Eos % (Auto) Baso % (Auto) Absolute Neuts (auto) Absolute Lymphs (auto) Nucleated RBC % Sodium Potassium Chloride Carbon Dioxide Anion Gap BUN Creatinine Estim Creat Clear Calc Est GFR (MDRD) Non-Af BUN/Creatinine Ratio Glucose Calcium Total Bilirubin AST ALT Alkaline Phosphatase Total Protein Albumin Globulin Albumin/Globulin Ratio HCG, Quant Serum , Qual Urine Color Urine Clarity Urine pH Ur Specific [place] U Specif Grav (Refrac) Urine Protein Urine Glucose (UA) Urine Ketones Urine Occult Blood Urine Nitrite Cancelled Urine Bilirubin Negative Cancelled Urine Urobilinogen Normal Cancelled Ur Leukocyte Esterase 25 H Urine RBC Urine WBC Ur Squamous Epith Cells Ur Transition Epith Cell Ur Renal Epithelial Cell Calcium Oxalate Crystal Uric Acid Crystals Triple Phos Crystals Other Crystals Amorphous Sediment Urine Bacteria Hyaline Casts Fine Granular Casts Coarse Granular Casts Waxy Casts RBC Casts WBC Casts Urine Mucus Urine Trichomonas Urine Yeast Blood Type 05/20/24 05/20/24 05/20/24 11:57 11:57 11:57 WBC RBC Hgb Hct MCV MCH MCHC RDW Std Deviation RDW Coeff of Benjamin Plt Count MPV Immature Gran % (Auto) Neut % (Auto) Lymph % (Auto) Coleman % (Auto) Eos % (Auto) Baso % (Auto) Absolute Neuts (auto) Absolute Lymphs (auto) Nucleated RBC % Sodium Potassium Chloride Carbon Dioxide Anion Gap BUN Creatinine Estim Creat Clear Calc Est GFR (MDRD) Non-Af BUN/Creatinine Ratio Glucose Calcium Total Bilirubin AST ALT Alkaline Phosphatase Total Protein Albumin Globulin Albumin/Globulin Ratio HCG, Quant Serum , Qual Urine Color Urine Clarity Urine pH Ur Specific [place] U Specif Grav (Refrac) Urine Protein Urine Glucose (UA) Urine Ketones Urine Occult Blood Urine Nitrite Urine Bilirubin Urine Urobilinogen Ur Leukocyte Esterase Cancelled Urine RBC 0-5 SEEN Cancelled Urine WBC 0-5 SEEN Cancelled Ur Squamous Epith Cells 0-5 SEEN Ur Transition Epith Cell Ur Renal Epithelial Cell Calcium Oxalate Crystal Uric Acid Crystals Triple Phos Crystals Other Crystals Amorphous Sediment Urine Bacteria Hyaline Casts Fine Granular Casts Coarse Granular Casts Waxy Casts RBC Casts WBC Casts Urine Mucus Urine Trichomonas Urine Yeast Blood Type 05/20/24 05/20/24 05/20/24 11:57 11:57 11:57 WBC RBC Hgb Hct MCV MCH MCHC RDW Std Deviation RDW Coeff of Benjamin Plt Count MPV Immature Gran % (Auto) Neut % (Auto) Lymph % (Auto) Coleman % (Auto) Eos % (Auto) Baso % (Auto) Absolute Neuts (auto) Absolute Lymphs (auto) Nucleated RBC % Sodium Potassium Chloride Carbon Dioxide Anion Gap BUN Creatinine Estim Creat Clear Calc Est GFR (MDRD) Non-Af BUN/Creatinine Ratio Glucose Calcium Total Bilirubin AST ALT Alkaline Phosphatase Total Protein Albumin Globulin Albumin/Globulin Ratio HCG, Quant Serum , Qual Urine Color Urine Clarity Urine pH Ur Specific [place] U Specif Grav (Refrac) Urine Protein Urine Glucose (UA) Urine Ketones Urine Occult Blood Urine Nitrite Urine Bilirubin Urine Urobilinogen Ur Leukocyte Esterase Urine RBC Urine WBC Ur Squamous Epith Cells Cancelled Ur Transition Epith Cell Cancelled Ur Renal Epithelial Cell Cancelled Calcium Oxalate Crystal Cancelled Uric Acid Crystals Cancelled Triple Phos Crystals Cancelled Other Crystals Cancelled Amorphous Sediment Cancelled Urine Bacteria 0 SEEN Cancelled Hyaline Casts Cancelled Fine Granular Casts Cancelled Coarse Granular Casts Cancelled Waxy Casts Cancelled RBC Casts Cancelled WBC Casts Cancelled Urine Mucus 0 SEEN Cancelled Urine Trichomonas Cancelled Urine Yeast Cancelled Blood Type 05/20/24 13:03 WBC 7.2 RBC 4.70 Hgb 13.6 Hct 39.8 MCV 84.7 MCH 28.9 MCHC 34.2 RDW Std Deviation 38.5 RDW Coeff of Benjamin 12.6 Plt Count 250 MPV 9.2 Immature Gran % (Auto) 0.300 Neut % (Auto) 57.9 Lymph % (Auto) 30.2 Coleman % (Auto) 9.4 Eos % (Auto) 1.8 Baso % (Auto) 0.4 Absolute Neuts (auto) 4.2 Absolute Lymphs (auto) 2.18 Nucleated RBC % 0 Sodium 138 Potassium 3.7 Chloride 104 Carbon Dioxide 22.8 Anion Gap 11 BUN 7 Creatinine 0.59 L Estim Creat Clear Calc 191.87 Est GFR (MDRD) Non-Af 129 BUN/Creatinine Ratio 11.5 Glucose 84 Calcium 9.2 Total Bilirubin 0.25 AST 17 ALT 17 Alkaline Phosphatase 76 Total Protein 7.0 Albumin 3.9 Globulin 3.0 Albumin/Globulin Ratio 1.3 HCG, Quant 83799 H Serum , Qual Cancelled Urine Color Urine Clarity Urine pH Ur Specific [place] U Specif Grav (Refrac) Urine Protein Urine Glucose (UA) Urine Ketones Urine Occult Blood Urine Nitrite Urine Bilirubin Urine Urobilinogen Ur Leukocyte Esterase Urine RBC Urine WBC Ur Squamous Epith Cells Ur Transition Epith Cell Ur Renal Epithelial Cell Calcium Oxalate Crystal Uric Acid Crystals Triple Phos Crystals Other Crystals Amorphous Sediment Urine Bacteria Hyaline Casts Fine Granular Casts Coarse Granular Casts Waxy Casts RBC Casts WBC Casts Urine Mucus Urine Trichomonas Urine Yeast Blood Type B POSITIVE Radiography Diagnostic Testing: Clinical Impression(s) from Imaging Studies Obstetrics Ultrasound 05/20/24 12:52 IMPRESSION: 1. Single living intrauterine gestational sac with including 17 mm pole corresponding to a gestational age of 8 weeks 0 days corresponding to RICHARD 12/30/2024. This is compatible with reported previously established dates. 2. Small 1.1 cm suspected perigestational hemorrhage may account for patient presentation. Recommend clinical follow-up. 3. Simple appearing 1.1 cm right adnexal cyst, not clearly located within the ovary. This may reflect a physiologic cysts or perhaps a paraovarian cyst. 4. Recommend routine complete anatomic survey at 20 weeks. 5. Additional description as above. Reading Location: [id number] Discharge Plan Triage Chief Complaint: Vag Bld, Preg ED Provider: Brody Cleaning Dx/Rx/DC Orders Clinical Impression: Vaginal bleeding affecting early Prescriptions: No Action escitalopram oxalate [Lexapro] 20 mg tablet 20 mg PO QDAY omeprazole 20 mg capsule,delayed release(DR/EC) 20 mg PO QDAY cholecalciferol (vitamin D3) 50 mcg (2,000 unit) capsule 50 mcg PO QDAY [id number] ac-dha 1 EACH combo pack 1 ea PO DAILY Primary Care Provider: JHON SCOTT Referrals: JHON SCOTT DO [Primary Care Provider] - Activity Restrictions/Additional Instructions: Follow-up with your MERCHANDISING LEAD in the outpatient setting on Sunday or scheduled appointment. Take your ultrasound results with you to that appointment. No lifting heavy things no exercising no intercourse you are placed on pelvic rest. Return if worsening symptoms or any concerns Print Language: Cape Verdean Disposition Disposition: Home, Self Care What to do if you have Problems For any increased pain, shortness of breath, bleeding, nausea or vomiting, chestpain, or any unexpected problems, contact your Primary Care Provider. Call [facility] ([phone]) or report tothe closest Emergency Room. Call 911 if necessary. 05/20/24 1655 Cosigner Signature (if applicable): CC: JHON SCOTT DO ~ Signed [facility]03-11-2025 Radiology Diagnostic study note [facility] Imaging Services [address] [place] [address] Transvaginal w/Preg US MR#: [id number] Acct: [id number] Name: RADHA BOONE Rep #: [id number] : 2000 F 23 From: Marycruz Webb MD PCP: JHON SCOTT DO Status: REG ER Study:Transvaginal w/Preg US Date of Exam: 05/20/24 Exam# [id number] Ordering Dr: Ryan Cleaning DO PROCEDURE: TRANSVAGINAL W/PREG US (USTVAGP), 05/20/2024 REASON FOR EXAM: BLEEDING 8 WEEKS PREG history of . Reportedly at 7 weeks 6 days by LMP, with RICHARD 12/31/2024. TECHNIQUE: Grayscale and color/spectral doppler transvaginal pelvic ultrasound was performed with attention tothe uterus and associated early gestation. M-mode imaging was utilized for documentation of cardiacactivity. COMPARISON: 12/28/2019. Note only the images are available for comparison; the report is not available for review at the time of dictation. FINDINGS: A single intrauterine gestational sac is identified. Gestational sac: Mean sac diameter 2.7 cm corresponding to 7 weeks 5 days. There is a small cystic area adjacent to the gestational sac measuring 1.1 x 0.7 x 0.7 cm likely reflecting a tiny perigestational hemorrhage. This involves less than 25% of the gestational sac surface area. [place]-rump length: 17 mm, corresponding to 8 weeks and 0 days. Yolk sac: Present Cardiac activity: Present, 157 bpm, regular. Estimated delivery date (RICHARD): 12/30/2024 by [facility]. Cervix: Unremarkable. Uterus: 10.4 x 7.1 x 5.5 cm. scar noted along the anterior lower uterine segment. Right ovary: 2.7 x 2.0 x 1.7 cm (estimated volume 4.9 mL). A simple appearing cyst adjacent to but not clearly located within the right ovary medially measures 1.1 x 1.0 x 0.9 cm. Normal low resistance arterial waveforms. Left ovary: 3.4 x 2.6 x 2.1 cm (estimated volume 9.7 mL). Peripherally vascularlikely corpus luteummeasures 1.5 x 1.7 x 1.9 cm. Normal low resistance arterial and venous waveforms. Other: No visualized pelvic free fluid. US/Transvaginal w/Preg US IMPRESSION: 1. Single living intrauterine gestational sac with including 17 mm pole corresponding to a gestational age of 8 weeks 0 days corresponding to RICHARD 12/30/2024. This is compatible with reported previously established dates. 2. Small 1.1 cm suspected perigestational hemorrhage may account for patient presentation. Recommend clinical follow-up. 3. Simple appearing 1.1 cm right adnexal cyst, not clearly located within the ovary. This may reflect a physiologic cysts or perhaps a paraovarian cyst. 4. Recommend routine complete anatomic survey at 20 weeks. 5. Additional description as above. Reading Location: [id number] CC: Dr. Brody Cleaning DO; JHON SCOTT DO ~ Distillation Operator Helper: Signed [facility]03-11-2025 Discharge summary Author Brody Cleaning [facility] Note Date/Time May 20, 2024 4:5 5pm [facility] Medical Records Department [address] [place] [address] Emergency Department Summary 05/20/24 MR#: [id number] Acct: [id number] Name: RADHA BOONE Rep #:[id number] : 2000 23 From: Brody Cleaning DO PCP: JHON SCOTT DO Status:REG ER Location: ED HPI HPI - Female History of Present Illness Chief Complaint: Vag Bld, Preg Narrative Narrative: Patient is a 23-year-old female who presents to the emergency department with a chief complaint of vaginal bleeding. Patient states that she currently is 8 weeks and 2 days ago she noted that she had some vaginal spotting. She states that today when she woke up and went to the bathroom noted that thiswas slightly heavier and more dark in nature. She states that she does have appointment on Sunday with [facility] however states that she feels extremely anxious and wanted to know if the baby is okay prompting her to come here for further evaluation management. Patient states that she did have subchorionic hemorrhage with her first child however this resolved on its own and she had no other complications during her . Patient did note that approximately 2 days prior to this starting she did have intercourse. Patient denies any abdominal pain or cramping. [facility] Medical History Seasonal allergies Depression Anxiety Home Medications ?Medication ?Instructions ?Recorded ?Last Taken ?Type vit no.105-iron 30 1 ea PO DAILY 12/28/19 History mg-folic acid 1.4 mg-dha 300 mg oral pack cholecalciferol (vitamin D3) 50 50 mcg PO QDAY 5 Unknown History mcg (2,000 unit) capsule escitalopram oxalate 20 mg tablet 20 mg PO QDAY Unknown History (Lexapro) omeprazole 20 mg capsule,delayed 20 mg PO QDAY 5 Unknown History release Allergy/AdvReac Type Severity Reaction Status Date / Time No Known Allergies Allergy Verified 05/20/24 11:11 Family History Mother Thyroid disorder, Onset Age: 38 Hypothyroid Diabetes GDM with both pregnancies Grandmother Thyroid disorder, Onset Age: 55 Maternal-thyroid nodules benign Diabetes Maternal type 2 Grandmother Diabetes Paternal type 2 Surgical History Previous section [place] teeth extracted Social History adopted: No household members: spouse and children housing: house number of children: 1 current occupational status: unemployed current occupation: [employer] pets and animals: Yes (Avoid litterbox) pets and animals: cat(s) and dog(s) history of recent travel: No sexually active: Yes Smoking Status: Former smoker quit date: 01/11/24 pack-years: 3 Electronic Cigarette Use: with nicotine second hand exposure: No quit status: quit date established alcohol intake: current alcohol intake frequency: holidays/special occasions only details: not while substance use type: former substance user Date of last use: last used 03/25/24 and marijuana well-balanced diet: daily or most days caffeine: Yes Type: coffee Number of servings: 1 eating out: 1-3 times/week during the past year weight has: decreased > 10 lbs what type of physical activity do you participate in: none janet/amish: Mosque seatbelt use: always do you feel safe at home: Yes 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 [employer] ROS ROS ED ROS Narrative Constitutional: Denies fevers, chills, headaches Abdomen: Denies abdominal pain nausea vomit diarrhea : Complains of vaginal spotting as noted above denies any painful urination Neurological: Denies numbness, weakness, tingling Musculoskeletal: Denies back pain Skin: Denies rashes or lesions EXAM Physical Exam Narrative Exam Narrative: General: Patient was lying in bed rest comfortably did not appear to be in acutedistress Head: Atraumatic, normocephalic Eyes: PERRL bilaterally, EOMI bilaterally, no conjunctival injection noted Neck: Soft, supple, trachea midline Cardiovascular: Regular rate and rhythm no murmurs gallops rubs noted Respiratory: Clear to auscultation bilaterally Abdomen: Soft, nondistended, no tenderness palpation Const Vital Signs: 05/20/24 11:10 05/20/24 13:09 05/20/24 15:00 Temperature 97.1 F L Temperature Source Temporal Pulse Rate 101 H 78 78 Respiratory Rate 20 H 16 16 Blood Pressure 122/89 H 112/89 H 116/80 Blood Pressure Mean 100 96 92 Pulse Ox 98 98 98 Oxygen Delivery Method Room Air MDM MDM MDM Narrative Medical decision making narrative: Patient is a 23-year-old female who presented to the emergency department chief complaint of vaginal spotting while 8 weeks . On the differential diagnose includes but limited to ectopic , UTI, threatened , subchorionic hemorrhage. Once workup is obtained reviewed she will be reevaluated. The patient CBC reviewed and showed no evidence leukocytosis white blood count was 0.2, he was 13.6, plate count noted be 250. Patient sodium 138, potassium normal 3.7, creatinine 0.59. Patient AST and ALT of 217 and 17 respectively, hCG quant was 52,866. Patient's urinalysis showed no evidence of infection. Patient's ultrasound was reviewed and showed a single live intrauterine gestational sac 17 mm pole corresponding to gestational age of 8 weeks expected delivery date of 12/30/2024. There is a small 1.1 cm suspected perigestational hemorrhage may account for the patient presentation. Simple appearing 1.1 cm right adnexal cyst. Recommend routine complete anatomic surveyat 20 weeks. I called on-call [facility] for Lavernesanthosh Freedman who states that the patient be placed on pelvic rest no heavy lifting no exercising. I discussed this plan with the patient she is agreeable this plan she has to follow-up on Sunday with them as well I gave her a hard copy of her ultrasound results. She is encouraged return with worsening symptoms or concerns. All question concerns answered she was discharged home in stable condition. Lab Data Labs: Laboratory Results - last 24 hr 05/20/24 05/20/24 05/20/24 11:57 11:57 11:57 WBC RBC Hgb Hct MCV MCH MCHC RDW Std Deviation RDW Coeff of Benjamin Plt Count MPV Immature Gran % (Auto) Neut % (Auto) Lymph % (Auto) Coleman % (Auto) Eos % (Auto) Baso % (Auto) Absolute Neuts (auto) Absolute Lymphs (auto) Nucleated RBC % Sodium Potassium Chloride Carbon Dioxide Anion Gap BUN Creatinine Estim Creat Clear Calc Est GFR (MDRD) Non-Af BUN/Creatinine Ratio Glucose Calcium Total Bilirubin AST ALT Alkaline Phosphatase Total Protein Albumin Globulin Albumin/Globulin Ratio HCG, Quant Serum , Qual Urine Color Straw Cancelled Urine Clarity Clear Cancelled Urine pH 7.0 Ur Specific [place] U Specif Grav (Refrac) Urine Protein Urine Glucose (UA) Urine Ketones Urine Occult Blood Urine Nitrite Urine Bilirubin Urine Urobilinogen Ur Leukocyte Esterase Urine RBC Urine WBC Ur Squamous Epith Cells Ur Transition Epith Cell Ur Renal Epithelial Cell Calcium Oxalate Crystal Uric Acid Crystals Triple Phos Crystals Other Crystals Amorphous Sediment Urine Bacteria Hyaline Casts Fine Granular Casts Coarse Granular Casts Waxy Casts RBC Casts WBC Casts Urine Mucus Urine Trichomonas Urine Yeast Blood Type 05/20/24 05/20/24 05/20/24 11:57 11:57 11:57 WBC RBC Hgb Hct MCV MCH MCHC RDW Std Deviation RDW Coeff of Benjamin Plt Count MPV Immature Gran % (Auto) Neut % (Auto) Lymph % (Auto) Coleman % (Auto) Eos % (Auto) Baso % (Auto) Absolute Neuts (auto) Absolute Lymphs (auto) Nucleated RBC % Sodium Potassium Chloride Carbon Dioxide Anion Gap BUN Creatinine Estim Creat Clear Calc Est GFR (MDRD) Non-Af BUN/Creatinine Ratio Glucose Calcium Total Bilirubin AST ALT Alkaline Phosphatase Total Protein Albumin Globulin Albumin/Globulin Ratio HCG, Quant Serum , Qual Urine Color Urine Clarity Urine pH Cancelled Ur Specific [place] 1.005 Cancelled U Specif Grav (Refrac) Cancelled Urine Protein Negative Cancelled Urine Glucose (UA) Normal Urine Ketones Urine Occult Blood Urine Nitrite Urine Bilirubin Urine Urobilinogen Ur Leukocyte Esterase Urine RBC Urine WBC Ur Squamous Epith Cells Ur Transition Epith Cell Ur Renal Epithelial Cell Calcium Oxalate Crystal Uric Acid Crystals Triple Phos Crystals Other Crystals Amorphous Sediment Urine Bacteria Hyaline Casts Fine Granular Casts Coarse Granular Casts Waxy Casts RBC Casts WBC Casts Urine Mucus Urine Trichomonas Urine Yeast Blood Type 05/20/24 05/20/24 05/20/24 11:57 11:57 11:57 WBC RBC Hgb Hct MCV MCH MCHC RDW Std Deviation RDW Coeff of Benjamin Plt Count MPV Immature Gran % (Auto) Neut % (Auto) Lymph % (Auto) Coleman % (Auto) Eos % (Auto) Baso % (Auto) Absolute Neuts (auto) Absolute Lymphs (auto) Nucleated RBC % Sodium Potassium Chloride Carbon Dioxide Anion Gap BUN Creatinine Estim Creat Clear Calc Est GFR (MDRD) Non-Af BUN/Creatinine Ratio Glucose Calcium Total Bilirubin AST ALT Alkaline Phosphatase Total Protein Albumin Globulin Albumin/Globulin Ratio HCG, Quant Serum , Qual Urine Color Urine Clarity Urine pH Ur Specific [place] U Specif Grav (Refrac) Urine Protein Urine Glucose (UA) Cancelled Urine Ketones Negative Cancelled Urine Occult Blood 10 H Cancelled Urine Nitrite Negative Urine Bilirubin Urine Urobilinogen Ur Leukocyte Esterase Urine RBC Urine WBC Ur Squamous Epith Cells Ur Transition Epith Cell Ur Renal Epithelial Cell Calcium Oxalate Crystal Uric Acid Crystals Triple Phos Crystals Other Crystals Amorphous Sediment Urine Bacteria Hyaline Casts Fine Granular Casts Coarse Granular Casts Waxy Casts RBC Casts WBC Casts Urine Mucus Urine Trichomonas Urine Yeast Blood Type 05/20/24 05/20/24 05/20/24 11:57 11:57 11:57 WBC RBC Hgb Hct MCV MCH MCHC RDW Std Deviation RDW Coeff of Benjamin Plt Count MPV Immature Gran % (Auto) Neut % (Auto) Lymph % (Auto) Coleman % (Auto) Eos % (Auto) Baso % (Auto) Absolute Neuts (auto) Absolute Lymphs (auto) Nucleated RBC % Sodium Potassium Chloride Carbon Dioxide Anion Gap BUN Creatinine Estim Creat Clear Calc Est GFR (MDRD) Non-Af BUN/Creatinine Ratio Glucose Calcium Total Bilirubin AST ALT Alkaline Phosphatase Total Protein Albumin Globulin Albumin/Globulin Ratio HCG, Quant Serum , Qual Urine Color Urine Clarity Urine pH Ur Specific [place] U Specif Grav (Refrac) Urine Protein Urine Glucose (UA) Urine Ketones Urine Occult Blood Urine Nitrite Cancelled Urine Bilirubin Negative Cancelled Urine Urobilinogen Normal Cancelled Ur Leukocyte Esterase 25 H Urine RBC Urine WBC Ur Squamous Epith Cells Ur Transition Epith Cell Ur Renal Epithelial Cell Calcium Oxalate Crystal Uric Acid Crystals Triple Phos Crystals Other Crystals Amorphous Sediment Urine Bacteria Hyaline Casts Fine Granular Casts Coarse Granular Casts Waxy Casts RBC Casts WBC Casts Urine Mucus Urine Trichomonas Urine Yeast Blood Type 05/20/24 05/20/24 05/20/24 11:57 11:57 11:57 WBC RBC Hgb Hct MCV MCH MCHC RDW Std Deviation RDW Coeff of Benjamin Plt Count MPV Immature Gran % (Auto) Neut % (Auto) Lymph % (Auto) Coleman % (Auto) Eos % (Auto) Baso % (Auto) Absolute Neuts (auto) Absolute Lymphs (auto) Nucleated RBC % Sodium Potassium Chloride Carbon Dioxide Anion Gap BUN Creatinine Estim Creat Clear Calc Est GFR (MDRD) Non-Af BUN/Creatinine Ratio Glucose Calcium Total Bilirubin AST ALT Alkaline Phosphatase Total Protein Albumin Globulin Albumin/Globulin Ratio HCG, Quant Serum , Qual Urine Color Urine Clarity Urine pH Ur Specific [place] U Specif Grav (Refrac) Urine Protein Urine Glucose (UA) Urine Ketones Urine Occult Blood Urine Nitrite Urine Bilirubin Urine Urobilinogen Ur Leukocyte Esterase Cancelled Urine RBC 0-5 SEEN Cancelled Urine WBC 0-5 SEEN Cancelled Ur Squamous Epith Cells 0-5 SEEN Ur Transition Epith Cell Ur Renal Epithelial Cell Calcium Oxalate Crystal Uric Acid Crystals Triple Phos Crystals Other Crystals Amorphous Sediment Urine Bacteria Hyaline Casts Fine Granular Casts Coarse Granular Casts Waxy Casts RBC Casts WBC Casts Urine Mucus Urine Trichomonas Urine Yeast Blood Type 05/20/24 05/20/24 05/20/24 11:57 11:57 11:57 WBC RBC Hgb Hct MCV MCH MCHC RDW Std Deviation RDW Coeff of Benjamin Plt Count MPV Immature Gran % (Auto) Neut % (Auto) Lymph % (Auto) Coleman % (Auto) Eos % (Auto) Baso % (Auto) Absolute Neuts (auto) Absolute Lymphs (auto) Nucleated RBC % Sodium Potassium Chloride Carbon Dioxide Anion Gap BUN Creatinine Estim Creat Clear Calc Est GFR (MDRD) Non-Af BUN/Creatinine Ratio Glucose Calcium Total Bilirubin AST ALT Alkaline Phosphatase Total Protein Albumin Globulin Albumin/Globulin Ratio HCG, Quant Serum , Qual Urine Color Urine Clarity Urine pH Ur Specific [place] U Specif Grav (Refrac) Urine Protein Urine Glucose (UA) Urine Ketones Urine Occult Blood Urine Nitrite Urine Bilirubin Urine Urobilinogen Ur Leukocyte Esterase Urine RBC Urine WBC Ur Squamous Epith Cells Cancelled Ur Transition Epith Cell Cancelled Ur Renal Epithelial Cell Cancelled Calcium Oxalate Crystal Cancelled Uric Acid Crystals Cancelled Triple Phos Crystals Cancelled Other Crystals Cancelled Amorphous Sediment Cancelled Urine Bacteria 0 SEEN Cancelled Hyaline Casts Cancelled Fine Granular Casts Cancelled Coarse Granular Casts Cancelled Waxy Casts Cancelled RBC Casts Cancelled WBC Casts Cancelled Urine Mucus 0 SEEN Cancelled Urine Trichomonas Cancelled Urine Yeast Cancelled Blood Type 05/20/24 13:03 WBC 7.2 RBC 4.70 Hgb 13.6 Hct 39.8 MCV 84.7 MCH 28.9 MCHC 34.2 RDW Std Deviation 38.5 RDW Coeff of Benjamin 12.6 Plt Count 250 MPV 9.2 Immature Gran % (Auto) 0.300 Neut % (Auto) 57.9 Lymph % (Auto) 30.2 Coleman % (Auto) 9.4 Eos % (Auto) 1.8 Baso % (Auto) 0.4 Absolute Neuts (auto) 4.2 Absolute Lymphs (auto) 2.18 Nucleated RBC % 0 Sodium 138 Potassium 3.7 Chloride 104 Carbon Dioxide 22.8 Anion Gap 11 BUN 7 Creatinine 0.59 L Estim Creat Clear Calc 191.87 Est GFR (MDRD) Non-Af 129 BUN/Creatinine Ratio 11.5 Glucose 84 Calcium 9.2 Total Bilirubin 0.25 AST 17 ALT 17 Alkaline Phosphatase 76 Total Protein 7.0 Albumin 3.9 Globulin 3.0 Albumin/Globulin Ratio 1.3 HCG, Quant 32112 H Serum , Qual Cancelled Urine Color Urine Clarity Urine pH Ur Specific [place] U Specif Grav (Refrac) Urine Protein Urine Glucose (UA) Urine Ketones Urine Occult Blood Urine Nitrite Urine Bilirubin Urine Urobilinogen Ur Leukocyte Esterase Urine RBC Urine WBC Ur Squamous Epith Cells Ur Transition Epith Cell Ur Renal Epithelial Cell Calcium Oxalate Crystal Uric Acid Crystals Triple Phos Crystals Other Crystals Amorphous Sediment Urine Bacteria Hyaline Casts Fine Granular Casts Coarse Granular Casts Waxy Casts RBC Casts WBC Casts Urine Mucus Urine Trichomonas Urine Yeast Blood Type B POSITIVE Radiography Diagnostic Testing: Clinical Impression(s) from Imaging Studies Obstetrics Ultrasound 05/20/24 12:52 IMPRESSION: 1. Single living intrauterine gestational sac with including 17 mm pole corresponding to a gestational age of 8 weeks 0 days corresponding to RICHARD 12/30/2024. This is compatible with reported previously established dates. 2. Small 1.1 cm suspected perigestational hemorrhage may account for patient presentation. Recommend clinical follow-up. 3. Simple appearing 1.1 cm right adnexal cyst, not clearly located within the ovary. This may reflect a physiologic cysts or perhaps a paraovarian cyst. 4. Recommend routine complete anatomic survey at 20 weeks. 5. Additional description as above. Reading Location: [id number] Discharge Plan Triage Chief Complaint: Vag Bld, Preg ED Provider: Brody Cleaning Dx/Rx/DC Orders Clinical Impression: Vaginal bleeding affecting early Prescriptions: No Action escitalopram oxalate [Lexapro] 20 mg tablet 20 mg PO QDAY omeprazole 20 mg capsule,delayed release(DR/EC) 20 mg PO QDAY cholecalciferol (vitamin D3) 50 mcg (2,000 unit) capsule 50 mcg PO QDAY [id number] 1 EACH combo pack 1 ea PO DAILY Primary Care Provider: JHON SCOTT Referrals: JHON SCOTT DO [Primary Care Provider] - Activity Restrictions/Additional Instructions: Follow-up with your [facility] in the outpatient setting on Sunday or scheduled appointment. Take your ultrasound results with you to that appointment. No lifting heavy things no exercising no intercourse you are placed on pelvic rest. Return if worsening symptoms or any concerns Print Language: [place] Verdean Disposition Disposition: Home, Self Care What to do if you have Problems For any increased pain, shortness of breath, bleeding, nausea or vomiting, chestpain, or any unexpected problems, contact your Primary Care Provider. Call [facility] ([phone]) or report to the closest Emergency Room. Call 911 if necessary. 05/20/24 0454 <Electronically signed by Brody Cleaning DO> Cosigner Signature (if applicable): CC: JHON SCOTTDO Mook ~ Signed [facility] Work Phone: 1([phone] 201-721601-23-2025 NoteMarkail Mook Jackson 23 y.o. 2000 female Reason for Consult: Epigastric pain HPI: 23-year-old female with history of depression was referred to me for evaluation of epigastric pain. Patient says for 1 months she has pain in the epigastric area which is sharp in nature more after eating. She went to ER and had CAT scan which was unremarkable. Patient was placed on omeprazole 40 mg once a day patient says still she has pain in the epigastric area more after eating denies any black-colored stool or heartburn. She says she has a history of IBS in the past and now has alternate constipation and diarrhea. Past Medical History: Past Medical History: Diagnosis Date Anxiety Asthma Depression PVC's (premature ventricular contractions) Tachycardia TBI (traumatic brain injury) ([facility]) Family History Problem Relation Age of Onset Colon polyps Maternal Grandmother Surgical History & Procedures: Past Surgical History: Procedure Laterality Date SECTION WISDOM TOOTH EXTRACTION Social History: Social History Socioeconomic History Marital status: Tobacco Use Smoking status: Former Smokeless tobacco: Never Vaping Use Vaping status: Former Substance and Sexual Activity Alcohol use: Not Currently Drug use: Yes Types: Marijuana Comment: daily, edibles/smoke Current Medications: Current Outpatient Medications Medication Sig Dispense Refill albuterol 90 mcg/actuation inhaler Inhale 2 (two) puffs every 4 (four) hours as needed . 6.7 g 0 busPIRone (BUSPAR) 5 MG tablet Take 1 (one) tablet (5 mg total) by mouth 2 (two) times a day . cholecalciferol, vitamin D3, 50 mcg (2,000 unit) Tab Take 1 (one) tablet (2,000 Units total) by mouth daily . escitalopram oxalate (LEXAPRO) 20 MG tablet Take 1 (one) tablet (20 mg total) by mouth daily . hydrOXYzine (ATARAX) 25 MG tablet Take 1 (one) tablet (25 mg total) by mouth nightly as needed . multivitamin (THERAGRAN) per tablet Take 1 (one) tablet by mouth daily . sertraline (ZOLOFT) 100 MG tablet Take 1 (one) tablet (100 mg total) by mouth daily . (Patient not taking: Reported on 04/03/2024 .) No current facility-administered medications for this visit. Review of Systems Constitutional: Negative for appetite change and unexpected weight change. HENT: Negative for voice change. Respiratory: Negative for cough, choking and shortness of breath. Cardiovascular: Negative for chest pain and leg swelling. Gastrointestinal: Positive for abdominal pain and nausea. Negative for anal bleeding, blood in stool, constipation, diarrhea, rectal pain and vomiting. Genitourinary: Negative for hematuria. Musculoskeletal: Negative for arthralgias and joint swelling. Skin: Negative for pallor. Neurological: Negative for dizziness, tremors and weakness. Hematological: Negative for adenopathy. Does not bruise/bleed easily. Psychiatric/Behavioral: Negative for confusion. Physical Exam Constitutional: Appearance: Normal appearance. Eyes: Pupils: Pupils are equal, round, and reactive to light. Cardiovascular: Pulses: Normal pulses. Heart sounds: Normal heart sounds. Pulmonary: Breath sounds: Normal breath sounds. Abdominal: General: Bowel sounds are normal. Palpations: Abdomen is soft. There is no mass. Tenderness: There is no abdominal tenderness. Skin: Coloration: Skin is not jaundiced. Neurological: General: No focal deficit present. Mental Status: She is alert and oriented to person, place, and time. Psychiatric: Behavior: Behavior normal. No visits with results within 30 Day(s) from this visit. Latest known visit with results is: Admission on 03/24/2021, Discharged on 03/24/2021 Component Date Value Ref Range Status POC Preg Test, Urine 03/24/2021 Negative Negative Final Assessment & Plan: 23-year-old female with history of epigastric pain associate with nausea pain more after eating probably has peptic ulcer disease. Patient is taking omeprazole but it is not helping. Since she has alternate constipation and diarrhea another possibility is irritable bowel syndrome. Patient will need EGD to rule out any peptic ulcer disease. She is scheduled for EGD on April 08 at 11 AM at surgery center. In the meantime I asked her to continue take omeprazole. Pal Booker MD AUTHENTICATED BY PAL BOOKER, ON 04/03/2024 15:15:57[facility]01-23-2025 History of Present illness Narrative* Pal Booker MD - 04/03/2024 3:12 PM EST Radha Jackson 23 y.o. 2000 female Reason for Consult: Epigastric pain HPI: 23-year-old female with history of depression was referred to me for evaluation of epigastric pain.Patient says for 1 months she has pain in the epigastric area which is sharp in nature more after eating. She went to ER and had CAT scan which was unremarkable. Patient was placed on omeprazole 40 mg once a day patient says still she has pain in the epigastric area more after eating denies any black-colored stool or heartburn. She says she has a history of IBS in the past and now has alternate constipation and diarrhea. Past Medical History: Past Medical History: Diagnosis Date Anxiety Asthma Depression PVC's (premature ventricular contractions) Tachycardia TBI (traumatic brain injury) ([facility]) Family History Problem Relation Age of Onset Colon polyps Maternal Grandmother Surgical History & Procedures: Past Surgical History: Procedure Laterality Date SECTION WISDOM TOOTH EXTRACTION Social History: Social History Socioeconomic History Marital status: Tobacco Use Smoking status: Former Smokeless tobacco: Never Vaping Use Vaping status: Former Substance and Sexual Activity Alcohol use: Not Currently Drug use: Yes Types: Marijuana Comment: daily, edibles/smoke Current Medications: Current Outpatient Medications Medication Sig Dispense Refill albuterol 90 mcg/actuation inhaler Inhale 2 (two) puffs every 4 (four) hours as needed . 6.7 g 0 busPIRone (BUSPAR) 5 MG tablet Take 1 (one) tablet (5 mg total) by mouth 2 (two) times a day . cholecalciferol, vitamin D3, 50 mcg (2,000 unit) Tab Take 1 (one) tablet (2,000 Units total) by mouth daily . escitalopram oxalate (LEXAPRO) 20 MG tablet Take 1 (one) tablet (20 mg total) by mouth daily . hydrOXYzine (ATARAX) 25 MG tablet Take 1 (one) tablet (25 mg total) by mouth nightly as needed . multivitamin (THERAGRAN) per tablet Take 1 (one) tablet by mouth daily . sertraline (ZOLOFT) 100 MG tablet Take 1 (one) tablet (100 mg total) by mouth daily . (Patient not taking: Reported on 04/03/2024 .) No current facility-administered medications for this visit. Review of Systems Constitutional: Negative for appetite change and unexpected weight change. HENT: Negative for voice change. Respiratory: Negative for cough, choking and shortness of breath. Cardiovascular: Negative for chest pain and leg swelling. Gastrointestinal: Positive for abdominal pain and nausea. Negative for anal bleeding, blood in stool, constipation, diarrhea, rectal pain and vomiting. Genitourinary: Negative for hematuria. Musculoskeletal: Negative for arthralgias and joint swelling. Skin: Negative for pallor. Neurological: Negative for dizziness, tremors and weakness. Hematological: Negative for adenopathy. Does not bruise/bleed easily. Psychiatric/Behavioral: Negative for confusion. Physical Exam Constitutional: Appearance: Normal appearance. Eyes: Pupils: Pupils are equal, round, and reactive to light. Cardiovascular: Pulses: Normal pulses. Heart sounds: Normal heart sounds. Pulmonary: Breath sounds: Normal breath sounds. Abdominal: General: Bowel sounds are normal. Palpations: Abdomen is soft. There is no mass. Tenderness: There is no abdominal tenderness. Skin: Coloration: Skin is not jaundiced. Neurological: General: No focal deficit present. Mental Status: She is alert and oriented to person, place, and time. Psychiatric: Behavior: Behavior normal. No visits with results within 30 Day(s) from this visit. Latest known visit with results is: Admission on 03/24/2021, Discharged on 03/24/2021 Component Date Value Ref Range Status POC Preg Test, Urine 03/24/2021 Negative Negative Final Assessment & Plan: 23-year-old female with history of epigastric pain associate with nausea pain more after eating probably has peptic ulcer disease. Patient is taking omeprazole but it is not helping. Since she has alternate constipation and diarrhea another possibility is irritable bowel syndrome. Patient will need EGD to rule out any peptic ulcer disease. She is scheduled for EGD on April 08 at 11 AM at surgery center. In the meantime I asked her to continue take omeprazole. Pal Booker MD documented in this [id number] Evaluation + Plan note* Assessment & Plan Note - Jhon Scott DO - 01/27/2024 7:37 PM EST Associated Problem(s): Anxiety Recently exacerbated due to life stressors, but starting to improve. We reviewed options for medication/dose adjustment. Using shared decision making, we decided to continue today without change. Continue Lexapro 10mg every day and Buspar 5mg bid. Return precautions reviewed. [facility] Work Phone: [phone]) 324-417311-17-2024 Miscellaneous Notes* Assessment & Plan Note - Jhon Scott DO - 01/27/2024 7:37 PM ESTAssociated Problem(s): Anxiety Recently exacerbated due to life stressors, but starting to improve. We reviewed options for medication/dose adjustment. Using shared decision making, we decided to continue today without change. Continue Lexapro 10mg every day and Buspar 5mg bid. Return precautions reviewed. * Assessment & Plan Note - Jhon Scott DO - 01/27/2024 7:36 PM EST Associated Problem(s): Depression, major, single episode, mild (CMS-HCC) Continue Lexapro and Buspar. * Assessment & Plan Note - Jhon Scott DO - 01/27/2024 7:36 PM EST Associated Problem(s): Rash Consider contact dermatitis vs fungal etiology. We will trial topical steroid. Medication dosing and side effects reviewed. If no better in 2wk, will plan to try topical antifungal. Return precautions reviewed. [facility] Work Phone: [phone]) 458-153311-17-2024 Evaluation + Plan note* Assessment & Plan Note - Jhon Scott DO - 01/27/2024 7:36 PM ESTAssociated Problem(s): Depression, major, single episode, mild (CMS-HCC) Continue Lexapro and Buspar. [facility] Work Phone: [phone] 800-212511-17-2024 Evaluation + Plan note* Assessment & Plan Note - Jhon Scott DO - 01/27/2024 7:36 PM ESTAssociated Problem(s): Rash Consider contact dermatitis vs fungal etiology. We will trial topical steroid. Medication dosing and side effects reviewed. If no better in 2wk, will plan to try topical antifungal. Return precautions reviewed. [facility] Work Phone: [phone] 214-149611-14-2024 History of Present illness Narrative* Jhon Scott DO - 01/24/2024 1:20 PM EST Subjective Patient ID: Radha Jackson is a 23 y.o. 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 Respiratory: Negative for cough and shortness of breath. Cardiovascular: Negative for chest pain and palpitations. Skin: Positive for rash. Psychiatric/Behavioral: Negative for dysphoric mood. The patient is not nervous/anxious. Objective BP 110/74 Pulse 84 Ht 1.702 m (5' 7) Wt 117 kg (258 lb 12.8 oz) BMI 40.53 kg/m Physical Exam Constitutional: Appearance: Normal appearance. HENT: Head: Normocephalic. Eyes: General: No scleral icterus. Conjunctiva/sclera: Conjunctivae normal. Pulmonary: Effort: Pulmonary effort is normal. No respiratory distress. Musculoskeletal: General: Normal range of motion. Skin: Findings: Rash (2x3cm maculopapular rash central L palm with mild flaking) present. Neurological: Mental Status: She is alert. Psychiatric: Mood and Affect: Mood normal. Behavior: Behavior normal. Assessment/Plan Problem List Items Addressed This Visit ICD-10-CM Rash - Primary R21 Consider contact dermatitis vs fungal etiology. We will trial topical steroid. Medication dosing and side effects reviewed. If no better in 2wk, will plan to try topical antifungal. Return precautions reviewed. Relevant Medications betamethasone dipropionate (Diprosone) 0.05 % ointment Depression, major, single episode, mild (CMS-HCC) F32.0 Continue Lexapro and Buspar. Relevant Medications escitalopram (Lexapro) 10 mg tablet Other Relevant Orders Follow Up In Primary Care - Established Anxiety F41.9 Recently exacerbated due to life stressors, but starting to improve. We reviewed options for medication/dose adjustment. Using shared decision making, we decided to continue today without change. Continue Lexapro 10mg every day and Buspar 5mg bid. Return precautions reviewed. Relevant Medications busPIRone (Buspar) 5 mg tablet escitalopram (Lexapro) 10 mg tablet Other Relevant Orders Follow Up In Primary Care - Established Follow up in 3mo for recheck, sooner if needed. documented in this [facility] Work Phone: [phone] Evaluation + Plan note* Assessment & Plan Note - Jhon Scott DO - 09/19/2023 9:29 PM EDTAssociated Problem(s): Bilateral wrist pain We reviewed that her pain is likely an overuse injury from grooming with possible component of median nerve neuropathy. Discussed options for further workup, but ultimately decided to continue to monitor for now and continue to focus on conservative measures. She will consider trying to brace again. May take NSAID as needed until . Return precautions reviewed. [facility] Work Phone: [phone] Miscellaneous Notes* Assessment & Plan Note - Jhon Scott DO - 09/19/2023 9:29 PM EDTAssociated Problem(s): Bilateral wrist pain We reviewed that her pain is likely an overuse injury from grooming with possible component of median nerve neuropathy. Discussed options for further workup, but ultimately decided to continue to monitor for now and continue to focus on conservative measures. She will consider trying to brace again. May take NSAID as needed until . Return precautions reviewed. * Assessment & Plan Note - Jhon Scott DO - 09/19/2023 9:26 PM EDT Associated Problem(s): Vitamin D deficiency Will replace with 2000iu every day. Repeat level prior to next eval. * Assessment & Plan Note - Jhon Scott DO - 09/19/2023 9:26 PM EDT Associated Problem(s): Iron deficiency We reviewed iron studies. Recommend oral supplementation. She prefers to purchase her own supplement otc as it has been easier on her stomach. Will repeat labs prior to next appt. * Assessment & Plan Note - Jhon Scott DO - 09/19/2023 9:25 PM EDT Associated Problem(s): Depression, major, single episode, mild (CMS-HCC) Continue Lexapro. Planning to wean Wellbutrin. * Assessment & Plan Note - Jhon Scott DO - 09/19/2023 9:25 PM EDT Associated Problem(s): Anxiety Well-controlled on current mediation regimen. We discussed Wellbutrin wean. She will let us know when she is ready. Will continue Lexapro. [facility] [phone] Evaluation + Plan note* Assessment & Plan Note - Jhon Scott DO - 09/19/2023 9:26 PM EDTAssociated Problem(s): Vitamin D deficiency Will replace with 2000iu every day. Repeat level prior to next eval. [facility] Work Phone: [phone] Evaluation + Plan note* Assessment & Plan Note - Jhon Scott DO - 09/19/2023 9:26 PM EDTAssociated Problem(s): Iron deficiency We reviewed iron studies. Recommend oral supplementation. She prefers to purchase her own supplement otc as it has been easier on her stomach. Will repeat labs prior to next appt. [facility] Work Phone: [phone] Evaluation + Plan note* Assessment & Plan Note - Jhon Scott DO - 09/19/2023 9:25 PM EDTAssociated Problem(s): Depression, major, single episode, mild (CMS-HCC) Continue Lexapro. Planning to wean Wellbutrin. [facility] Work Phone: [phone] Evaluation + Plan note* Assessment & Plan Note - Jhon Scott DO - 09/19/2023 9:25 PM EDTAssociated Problem(s): Anxiety Well-controlled on current mediation regimen. We discussed Wellbutrin wean. She will let us know when she is ready. Will continue Lexapro. [facility] Work Phone: [phone] History of Present illness Narrative* Jhon Scott DO - 09/19/2023 1:20 PM EDT Subjective Patient ID: Radha Jackson is a 22 y.o. female who presents for 3 month check. HPI Iron deficiency - iron and ferritin levels are low, she prefers to supplement with otc iron Vitamin D deficiency - level low at 21, has not been supplementing recently Anx/dep - slowed down on grooming which is helping with mental health, has more time out of work, no longer needing the Buspar, she is planning to wean the Wellbutrin in anticipation of ttc Bl wrist pain - notes pain/burning in the wrists bilaterally since she has been grooming more regularly, tried bracing in the past but hard to tolerate while grooming, occasionally notices paresthesias in the thumbs, she is considering starting turmeric, takes ibuprofen and Tylenol if she needs, they help when she takes them Review of Systems Constitutional: Negative for chills and fever. Respiratory: Negative for cough and shortness of breath. Cardiovascular: Negative for chest pain and palpitations. Musculoskeletal: Positive for arthralgias (bl wrist pain). Skin: Negative for rash. Psychiatric/Behavioral: Negative for dysphoric mood. The patient is not nervous/anxious. Objective BP 114/64 Pulse 84 Ht 1.702 m (5' 7) Wt 118 kg (261 lb) BMI 40.88 kg/m Physical Exam Constitutional: Appearance: Normal appearance. HENT: Head: Normocephalic. Eyes: General: No scleral icterus. Conjunctiva/sclera: Conjunctivae normal. Pulmonary: Effort: Pulmonary effort is normal. No respiratory distress. Musculoskeletal: General: Normal range of motion. Skin: Findings: No rash. Neurological: Mental Status: She is alert. Psychiatric: Mood and Affect: Mood normal. Behavior: Behavior normal. Assessment/Plan Problem List Items Addressed This Visit ICD-10-CM Vitamin D deficiency - Primary E55.9 Will replace with 2000iu every day. Repeat level prior to next eval. Relevant Medications cholecalciferol (Vitamin D3) 50 MCG (2000 UT) tablet Other Relevant Orders Follow Up In Primary Care - Established Vitamin D 25-Hydroxy,Total (for eval of Vitamin D levels) Iron deficiency E61.1 We reviewed iron studies. Recommend oral supplementation. She prefers to purchase her own supplement otc as it has been easier on her stomach. Will repeat labs prior to next appt. Relevant Orders Follow Up In Primary Care - Established CBC and Auto Differential Iron and TIBC Ferritin Depression, major, single episode, mild (CMS-HCC) F32.0 Continue Lexapro. Planning to wean Wellbutrin. Relevant Orders Follow Up In Primary Care - Established Bilateral wrist pain M25.531, M25.532 We reviewed that her pain is likely an overuse injury from grooming with possible component of median nerve neuropathy. Discussed options for further workup, but ultimately decided to continue to monitor for now and continue to focus on conservative measures. She will consider trying to brace again. May take NSAID as needed until . Return precautions reviewed. Anxiety F41.9 Well-controlled on current mediation regimen. We discussed Wellbutrin wean. She will let us know when she is ready. Will continue Lexapro. Relevant Orders Follow Up In Primary Care - Established Follow up in 3mo for recheck, sooner if needed. documented in this [facility] Work Phone: [phone] Evaluation + Plan note* Assessment & Plan Note - Jhon Scott DO - 06/20/2023 8:57 PM EDTAssociated Problem(s): Class 3 severe obesity due to excess calories with serious comorbidity and aleisha dy mass index (BMI) of 40.0 to 44.9 in adult (CMS/HCC) Unable to tolerate Adipex. [facility] Work Phone: [phone] Miscellaneous Notes* Assessment & Plan Note - Jhon Scott DO - 06/20/2023 8:57 PM EDTAssociated Problem(s): Class 3 severe obesity due to excess calories with serious comorbidity and body mass index (BMI) of 40.0 to 44.9 in adult (CMS/HCC) Unable to tolerate Adipex. * Assessment & Plan Note - Jhon Scott DO - 06/20/2023 8:56 PM EDT Associated Problem(s): Depression, major, single episode, mild (CMS/HCC) Continue Lexapro/Wellbutrin. * Assessment & Plan Note - Jhon Scott DO - 06/20/2023 8:56 PM EDT Associated Problem(s): Anxiety Significantly flared with Adipex, which has been discontinued. Lexapro has been restarted and feeling much better. We discussed options for Lexapro dosing. Using shared decision making, we decided tocontinue at current dose (10mg every day). I am glad to hear that she has restarted counseling. Return precautions reviewed. [facility]: [phone] Evaluation + Plan note* Assessment & Plan Note - Jhon Scott DO - 06/20/2023 8:56 PM EDTAssociated Problem(s): Depression, major, single episode, mild (CMS/HCC) Continue Lexapro/Wellbutrin. [facility] Work Phone: [phone] Evaluation + Plan note* Assessment & Plan Note - Jhon Scott DO - 06/20/2023 8:56 PM EDTAssociated Problem(s): Anxiety Significantly flared with Adipex, which has been discontinued. Lexapro has been restarted and feeling much better. We discussed options for Lexapro dosing. Using shared decision making, we decided tocontinue at current dose (10mg every day). I am glad to hear that she has restarted counseling. Return precautions reviewed. [facility] Work Phone: [phone] History of Present illness Narrative* Jhon Scott DO - 06/20/2023 2:40 PM EDT Subjective Patient ID: Radha Jackson is a 22 y.o. female who presents for 1 month check. Stopped adipex due to side effects. HPI BMI - unable to tolerate Adipex, felt like a zombie, was in fog, was also struggling with nausea, anxiety flared significantly and was having panic attacks Anx/dep - anxiety flared with Adipex, Lexapro has since been restarted at 10mg every day, feeling much better, liking current dose of Lexapro, she has restarted counseling ([facility]) Review of Systems Constitutional: Negative for chills and fever. Respiratory: Negative for cough and shortness of breath. Cardiovascular: Negative for chest pain and palpitations. Skin: Negative for rash. Psychiatric/Behavioral: Negative for dysphoric mood. The patient is not nervous/anxious. Objective BP 126/82 Pulse 92 Ht 1.702 m (5' 7) Wt 119 kg (263 lb 3.2 oz) BMI 41.22 kg/m Physical Exam Constitutional: Appearance: Normal appearance. HENT: Head: Normocephalic. Eyes: General: No scleral icterus. Conjunctiva/sclera: Conjunctivae normal. Pulmonary: Effort: Pulmonary effort is normal. No respiratory distress. Musculoskeletal: General: Normal range of motion. Skin: Findings: No rash. Neurological: Mental Status: She is alert. Psychiatric: Mood and Affect: Mood normal. Behavior: Behavior normal. Assessment/Plan Problem List Items Addressed This Visit ICD-10-CM Depression, major, single episode, mild (CMS/[facility]) F32.0 Continue Lexapro/Wellbutrin. Relevant Medications buPROPion XL (Wellbutrin XL) 300 mg 24 hr tablet Other Relevant Orders Follow Up In Primary Care - Established Class 3 severe obesity due to excess calories with serious comorbidity and body mass index (BMI) of40.0 to 44.9 in adult (CMS/[facility]) E66.01, Z68.41 Unable to tolerate Adipex. Relevant Orders Follow Up In Primary Care - Established Anxiety F41.9 Significantly flared with Adipex, which has been discontinued. Lexapro has been restarted and feeling much better. We discussed options for Lexapro dosing. Using shared decision making, we decided tocontinue at current dose (10mg every day). I am glad to hear that she has restarted counseling. Return precautions reviewed. Relevant Medications buPROPion XL (Wellbutrin XL) 300 mg 24 hr tablet Other Relevant Orders Follow Up In Primary Care - Established Other Visit Diagnoses Codes Routine general medical examination at a health care facility - Primary Z00.00 Relevant Orders CBC and Auto Differential Comprehensive Metabolic Panel Lipid Panel Vitamin D 25-Hydroxy,Total (for eval of Vitamin D levels) Iron and TIBC Ferritin Hemoglobin A1C Follow up in 3mo for recheck, sooner if needed. Labs prior to appt. documented in this [facility] Work Phone: [phone] Evaluation + Plan note* Assessment & Plan Note - Jhon Scott DO - 05/20/2023 12:46 AM ESTAssociated Problem(s): Class 3 severe obesity due to excess calories with serious comorbidity and aleisha dy mass index (BMI) of 40.0 to 44.9 in adult ([facility]) Dietary modifications and recommendation for 150 minutes of moderate-intensity exercise per week reviewed. We discussed options for pharmacologic assistance. Using shared decision making, we decided to trial Adipex pending UDS. CSA signed today. Will decrease Wellbutrin to 150mg every day. Dietary modifications and recommendation for 150 minutes of moderate-intensity exercise per week reviewed. Return precautions reviewed. I have personally reviewed the OARRS for this patient. I have considered the risk dependence, addiction, and diversion. There are no concerns at this time. I believe that it is clinically appropriatefor this patient to be prescribed this medication based on documented diagnosis. [facility] Work Phone: [phone] Miscellaneous Notes* Assessment & Plan Note - Jhon Scott DO - 05/20/2023 12:46 AM ESTAssociated Problem(s): Class 3 severe obesity due to excess calories with serious comorbidity and body mass index (BMI) of 40.0 to 44.9 in adult ([facility]) Dietary modifications and recommendation for 150 minutes of moderate-intensity exercise per week reviewed. We discussed options for pharmacologic assistance. Using shared decision making, we decided to trial Adipex pending UDS. CSA signed today. Will decrease Wellbutrin to 150mg every day. Dietary modifications and recommendation for 150 minutes of moderate-intensity exercise per week reviewed. Return precautions reviewed. I have personally reviewed the [place]ARRS for this patient. I have considered the risk dependence, addiction, and diversion. There are no concerns at this time. I believe that it is clinically appropriatefor this patient to be prescribed this medication based on documented diagnosis. * Assessment & Plan Note - Jhon Scott DO - 05/20/2023 12:45 AM EST Associated Problem(s): Depression, major, single episode, mild ([facility]) Exacerbated. * Assessment & Plan Note - Jhon Scott DO - 05/20/2023 12:45 AM EST Associated Problem(s): Anxiety Exacerbated largely due to her struggle with her weight at this time. We will address. [facility] [phone] Evaluation + Plan note* Assessment & Plan Note - Jhon Scott DO - 05/20/2023 12:45 AM ESTAssociated Problem(s): Depression, major, single episode, mild (CMS/HCC) Exacerbated. [facility] Work Phone: [phone] Evaluation + Plan note* Assessment & Plan Note - Jhon Scott DO - 05/20/2023 12:45 AM ESTAssociated Problem(s): Anxiety Exacerbated largely due to her struggle with her weight at this time. We will address. [facility] Work Phone: [phone] History of Present illness Narrative* Jhon Scott DO - 05/15/2023 2:00 PM EST Subjective Patient ID: Radha Jackson is a 22 y.o. 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 Respiratory: Negative for cough and shortness of breath. Cardiovascular: Negative for chest pain and palpitations. Skin: Negative for rash. Psychiatric/Behavioral: Positive for dysphoric mood. The patient is not nervous/anxious. Objective BP 120/82 Pulse 88 Ht 1.702 m (5' 7) Wt 121 kg (266 lb 6.4 oz) BMI 41.72 kg/m Physical Exam Constitutional: Appearance: Normal appearance. HENT: Head: Normocephalic. Eyes: General: No scleral icterus. Conjunctiva/sclera: Conjunctivae normal. Pulmonary: Effort: Pulmonary effort is normal. No respiratory distress. Musculoskeletal: General: Normal range of motion. Skin: Findings: No rash. Neurological: Mental Status: She is alert. Psychiatric: Mood and Affect: Mood normal. Behavior: Behavior normal. Assessment/Plan Problem List Items Addressed This Visit ICD-10-CM Depression, major, single episode, mild ([facility]) F32.0 Exacerbated. Relevant Orders Follow Up In Primary Care - Established Class 3 severe obesity due to excess calories with serious comorbidity and body mass index (BMI) of40.0 to 44.9 in adult (CMS/[facility]) - Primary E66.01, Z68.41 Dietary modifications and recommendation for 150 minutes of moderate-intensity exercise per week reviewed. We discussed options for pharmacologic assistance. Using shared decision making, we decided to trial Adipex pending UDS. CSA signed today. Will decrease Wellbutrin to 150mg every day. Dietary modifications and recommendation for 150 minutes of moderate-intensity exercise per week reviewed. Return precautions reviewed. I have personally reviewed the OARRS for this patient. I have considered the risk dependence, addiction, and diversion. There are no concerns at this time. I believe that it is clinically appropriatefor this patient to be prescribed this medication based on documented diagnosis. Relevant Orders Drug Screen, Urine With Reflex to Confirmation (Completed) Follow Up In Primary Care - Established THC (Marijuana), Urine, Confirmation (Completed) Anxiety F41.9 Exacerbated largely due to her struggle with her weight at this time. We will address. Relevant Orders Follow Up In Primary Care - Established Follow up in 1mo for recheck, sooner if needed. [facility]: [phone] Evaluation + Plan note* Assessment & Plan Note - Jhon Scott DO - 01/16/2023 12:24 PM ESTAssociated Problem(s): Anxiety Wellbutrin increase. [facility] Work Phone: [phone] Evaluation + Plan note* Assessment & Plan Note - Jhon Scott DO - 01/16/2023 12:24 PM ESTAssociated Problem(s): Depression, major, single episode, mild (CMS/HCC) Reviewed options. Using shared decision making, we decided to increase Wellbutrin to 450mg every day. Medication dosing and side effects reviewed. Will consider dose adjustment of Lexapro and/or Buspar pending response and potential increase in anxiety with the higher dose of Wellbutrin. Will also consider resuming low dose Vyvanse pending clinical course given impulsive eating. Follow up in 1mo for recheck, sooner if needed. Return precautions reviewed. [facility] Work Phone: [phone] Miscellaneous Notes* Assessment & Plan Note - Jhon Scott DO - 01/16/2023 12:24 PM ESTAssociated Problem(s): Anxiety Wellbutrin increase. * Assessment & Plan Note - Jhon Scott DO - 01/16/2023 12:24 PM EST Associated Problem(s): Depression, major, single episode, mild (CMS/HCC) Reviewed options. Using shared decision making, we decided to increase Wellbutrin to 450mg every day. Medication dosing and side effects reviewed. Will consider dose adjustment of Lexapro and/or Buspar pending response and potential increase in anxiety with the higher dose of Wellbutrin. Will also consider resuming low dose Vyvanse pending clinical course given impulsive eating. Follow up in 1mo for recheck, sooner if needed. Return precautions reviewed. documented in this [facility] Work Phone: [phone] History of Present illness Narrative* Jhon Scott DO - 01/16/2023 11:00 AM EST Subjective Patient ID: Radha Jackson is a 22 y.o. female who presents for discuss medications HPI Anx/dep - past 1mo struggling with impulsive/binge eating with subsequent guilt and body dysmorphia, eats very little throughout the day, eating mostly at night, had to put hold on counseling due to insurance coverage and affordability, may be able to resume once a month appts, feels that her depres bree is manageable at this time, denies SI/HI Review of Systems Constitutional: Negative for chills and fever. Respiratory: Negative for cough and shortness of breath. Cardiovascular: Negative for chest pain and palpitations. Skin: Negative for rash. Psychiatric/Behavioral: Negative for dysphoric mood. The patient is not nervous/anxious. Impulsive eating Objective BP 114/74 Pulse 88 Ht 1.702 m (5' 7) Wt 124 kg (273 lb) BMI 42.76 kg/m Physical Exam Constitutional: Appearance: Normal appearance. HENT: Head: Normocephalic. Eyes: General: No scleral icterus. Conjunctiva/sclera: Conjunctivae normal. Pulmonary: Effort: Pulmonary effort is normal. No respiratory distress. Musculoskeletal: General: Normal range of motion. Skin: Findings: No rash. Neurological: Mental Status: She is alert. Psychiatric: Mood and Affect: Mood normal. Behavior: Behavior normal. Assessment/Plan Problem List Items Addressed This Visit ICD-10-CM Depression, major, single episode, mild (CMS/HCC) - Primary F32.0 Reviewed options. Using shared decision making, we decided to increase Wellbutrin to 450mg every day. Medication dosing and side effects reviewed. Will consider dose adjustment of Lexapro and/or Buspar pending response and potential increase in anxiety with the higher dose of Wellbutrin. Will also consider resuming low dose Vyvanse pending clinical course given impulsive eating. Follow up in 1mo for recheck, sooner if needed. Return precautions reviewed. Relevant Medications buPROPion XL (Wellbutrin XL) 150 mg 24 hr tablet Other Relevant Orders Follow Up In Primary Care - Established Anxiety F41.9 Wellbutrin increase. documented in this [facility] Work Phone: [phone]) [phone] Evaluation + Plan note* Assessment & Plan Note - Jhon Scott DO - 11/14/2022 9:56 PM EDTAssociated Problem(s): Depression, major, single episode, mild (CMS/HCC) No changes today. Doing well. [facility] Work Phone: [phone] Evaluation + Plan note* Assessment & Plan Note - Jhon Scott DO - 11/14/2022 9:56 PM EDTAssociated Problem(s): Anxiety Doing well on current regimen. Will continue. Follow up in 6mo for recheck, sooner if needed. [facility] Work Phone: [phone] Miscellaneous Notes* Assessment & Plan Note - Jhon Scott DO - 11/14/2022 9:56 PM EDTAssociated Problem(s): Depression, major, single episode, mild (CMS/HCC) No changes today. Doing well. * Assessment & Plan Note - Jhon Scott DO - 11/14/2022 9:56 PM EDT Associated Problem(s): Anxiety Doing well on current regimen. Will continue. Follow up in 6mo for recheck, sooner if needed. documented in this [facility] Work Phone: [phone] History of Present illness Narrative* Jhon Scott DO - 11/14/2022 1:20 PM EDT Subjective Patient ID: Radha Jackson is a 21 y.o. female who presents for 3 month check. 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 Respiratory: Negative for cough and shortness of breath. Cardiovascular: Negative for chest pain and palpitations. Skin: Negative for rash. Psychiatric/Behavioral: Negative for dysphoric mood. The patient is not nervous/anxious. Objective BP 110/80 Pulse 84 Ht 1.702 m (5' 7) Wt 118 kg (259 lb 6.4 oz) BMI 40.63 kg/m Physical Exam Constitutional: Appearance: Normal appearance. HENT: Head: Normocephalic and atraumatic. Eyes: General: No scleral icterus. Conjunctiva/sclera: Conjunctivae normal. Cardiovascular: Rate and Rhythm: Normal rate and regular rhythm. Heart sounds: No murmur heard. Pulmonary: Effort: Pulmonary effort is normal. No respiratory distress. Breath sounds: Normal breath sounds. Musculoskeletal: General: No swelling. Normal range of motion. Cervical back: Normal range of motion and neck supple. Skin: General: Skin is warm and dry. Findings: No rash. Neurological: General: No focal deficit present. Mental Status: She is alert. Psychiatric: Mood and Affect: Mood normal. Behavior: Behavior normal. Assessment/Plan Problem List Items Addressed This Visit Depression, major, single episode, mild (CMS/HCC) No changes today. Doing well. Relevant Orders Follow Up In Primary Care - Established Anxiety Doing well on current regimen. Will continue. Follow up in 6mo for recheck, sooner if needed. Relevant Orders Follow Up In Primary Care - Established documented in this [facility] Work Phone: [phone] Evaluation + Plan note* Assessment & Plan Note - Jhon Scott DO - 08/15/2022 9:37 PM EDTAssociated Problem(s): Anxiety Wellbutrin increase. [facility] Work Phone: [phone] Evaluation + Plan note* Assessment & Plan Note - Jhon Scott DO - 08/15/2022 9:37 PM EDTAssociated Problem(s): Depression, major, single episode, mild (CMS/HCC) Doing well with addition of Wellbutrin. Using shared decision making, we decided to increase dose to 300mg every day. Medication dosing and side effects reviewed. Follow up in 3mo for recheck, soonerif needed. [facility] Work Phone: [phone] Miscellaneous Notes* Assessment & Plan Note - Jhon Scott DO - 08/15/2022 9:37 PM EDTAssociated Problem(s): Anxiety Wellbutrin increase. * Assessment & Plan Note - Jhon Scott DO - 08/15/2022 9:37 PM EDT Associated Problem(s): Depression, major, single episode, mild (CMS/HCC) Doing well with addition of Wellbutrin. Using shared decision making, we decided to increase dose to 300mg every day. Medication dosing and side effects reviewed. Follow up in 3mo for recheck, soonerif needed. documented in this [facility] Work Phone: [phone] History of Present illness Narrative* Jhon Scott DO - 08/15/2022 1:40 PM EDT Subjective Patient ID: Radha Jackson is a 21 y.o. female who presents for 1 month follow up HPI Regarding anx/dep, doing well with addition of Wellbutrin. Denies adverse effects and feels that itis helping. 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 Overall feeling more motivated. Review of Systems Constitutional: Negative for chills and fever. Respiratory: Negative for cough and shortness of breath. Cardiovascular: Negative for chest pain and palpitations. Skin: Negative for rash. Psychiatric/Behavioral: Negative for dysphoric mood. The patient is not nervous/anxious. Objective BP 108/74 Pulse 88 Ht 1.702 m (5' 7) Wt 111 kg (244 lb 3.2 oz) BMI 38.25 kg/m Physical Exam Constitutional: Appearance: Normal appearance. HENT: Head: Normocephalic. Eyes: General: No scleral icterus. Conjunctiva/sclera: Conjunctivae normal. Pulmonary: Effort: Pulmonary effort is normal. No respiratory distress. Musculoskeletal: General: Normal range of motion. Skin: Findings: No rash. Neurological: Mental Status: She is alert. Psychiatric: Mood and Affect: Mood normal. Behavior: Behavior normal. Assessment/Plan Problem List Items Addressed This Visit Depression, major, single episode, mild (CMS/HCC) Doing well with addition of Wellbutrin. Using shared decision making, we decided to increase dose to 300mg every day. Medication dosing and side effects reviewed. Follow up in 3mo for recheck, soonerif needed. Relevant Medications buPROPion XL (Wellbutrin XL) 300 mg 24 hr tablet Other Relevant Orders Follow Up In Primary Care Anxiety Wellbutrin increase. Relevant Medications buPROPion XL (Wellbutrin XL) 300 mg 24 hr tablet Other Relevant Orders Follow Up In Primary Care [facility]: [phone] Evaluation + Plan note* Assessment & Plan Note - Jhon Scott DO - 07/18/2022 9:25 PM EDTAssociated Problem(s): Anxiety Wellbutrin trial. [facility] Work Phone: [phone] Evaluation + Plan note* Assessment & Plan Note - Jhon Scott DO - 07/18/2022 9:25 PM EDTAssociated Problem(s): Depression, major, single episode, mild (CMS/HCC) Anxiety well-controlled with Lexapro. Will continue. Struggling with depressive symptoms. Reviewed options. Using shared decision making, we decided to trial adding Wellbutrin. Medication dosing and side effects reviewed. Follow up in 1mo for recheck, sooner if needed. [facility] Work Phone: [phone] Miscellaneous Notes* Assessment & Plan Note - Jhon Scott DO - 07/18/2022 9:25 PM EDTAssociated Problem(s): Anxiety Wellbutrin trial. * Assessment & Plan Note - Jhon Scott DO - 07/18/2022 9:25 PM EDT Associated Problem(s): Depression, major, single episode, mild (CMS/HCC) Anxiety well-controlled with Lexapro. Will continue. Struggling with depressive symptoms. Reviewed options. Using shared decision making, we decided to trial adding Wellbutrin. Medication dosing and side effects reviewed. Follow up in 1mo for recheck, sooner if needed. documented in this [facility] Work Phone: [phone] History of Present illness Narrative* Jhon Scott DO - 07/18/2022 2:00 PM EDT 1 month check. No concerns Subjective Patient ID: Radha Jackson is a 21 y.o. female who presents for Anxiety, Depression, Vitamin D Deficiency, and Iron Deficiency. HPI Regarding anx/dep, states that her anxiety seems to be improved with the Lexapro. No longer needingto take the Buspar and no longer having strange dreams. She has noticed increased thoughts about restricting food (has hx restrictive eating behavior in the past) and has been struggling with low mood. Having trouble with motivation and wanting to do things that used to make her happy. Of note, would like to quit vaping. There is no hx seizure. Review of Systems Constitutional: Negative for chills and fever. Respiratory: Negative for cough and shortness of breath. Cardiovascular: Negative for chest pain and palpitations. Skin: Negative for rash. Psychiatric/Behavioral: Positive for dysphoric mood. The patient is not nervous/anxious. Objective BP 118/80 Pulse 76 Ht 1.702 m (5' 7) Wt 108 kg (239 lb) BMI 37.43 kg/m Physical Exam Constitutional: Appearance: Normal appearance. HENT: Head: Normocephalic. Eyes: General: No scleral icterus. Conjunctiva/sclera: Conjunctivae normal. Pulmonary: Effort: Pulmonary effort is normal. No respiratory distress. Musculoskeletal: General: Normal range of motion. Skin: Findings: No rash. Neurological: Mental Status: She is alert. Psychiatric: Mood and Affect: Mood normal. Behavior: Behavior normal. Assessment/Plan Problem List Items Addressed This Visit Depression, major, single episode, mild (CMS/HCC) Anxiety well-controlled with Lexapro. Will continue. Struggling with depressive symptoms. Reviewed options. Using shared decision making, we decided to trial adding Wellbutrin. Medication dosing and side effects reviewed. Follow up in 1mo for recheck, sooner if needed. Relevant Medications buPROPion XL (Wellbutrin XL) 150 mg 24 hr tablet Other Relevant Orders Follow Up In Primary Care Anxiety Wellbutrin trial. Relevant Orders Follow Up In Primary Care [facility]: [phone] Evaluation + Plan note* Assessment & Plan Note - Jhon Scott DO - 06/02/2022 2:42 PM EDTAssociated Problem(s): Iron deficiency Improved with otc supplement. Will continue to monitor. [facility] Work Phone: [phone] Evaluation + Plan note* Assessment & Plan Note - Jhon Scott DO - 06/02/2022 2:42 PM EDTAssociated Problem(s): Vitamin D deficiency No better with 2000iu daily. Will proceed with high dose 50,000iu qwk x8wk. [facility] Work Phone: [phone] Miscellaneous Notes* Assessment & Plan Note - Jhon Scott DO - 06/02/2022 2:42 PM EDTAssociated Problem(s): Iron deficiency Improved with otc supplement. Will continue to monitor. * Assessment & Plan Note - Jhon Scott DO - 06/02/2022 2:42 PM EDT Associated Problem(s): Vitamin D deficiency No better with 2000iu daily. Will proceed with high dose 50,000iu qwk x8wk. * Assessment & Plan Note - Jhon Scott DO - 06/02/2022 2:41 PM EDT Associated Problem(s): Anxiety Struggling with both anx/dep since completely weaning the Zoloft/Vyvanse and restarting the Zoloft.Reviewed options. Using shared decision making, we decided to transition to Lexapro. Medication dosing, side effects, transition from Zoloft reviewed. Continue prn Buspar/hydroxyzine. Follow up in 2wks for recheck, sooner if needed. Return precautions reviewed. * Assessment & Plan Note - Jhon Scott DO - 06/02/2022 2:41 PM EDT Associated Problem(s): Depression, major, single episode, mild (CMS/HCC) Lexapro trial documented in this [facility] Work Phone: [phone] Evaluation + Plan note* Assessment & Plan Note - Jhon Scott DO - 06/02/2022 2:41 PM EDTAssociated Problem(s): Anxiety Struggling with both anx/dep since completely weaning the Zoloft/Vyvanse and restarting the Zoloft.Reviewed options. Using shared decision making, we decided to transition to Lexapro. Medication dosing, side effects, transition from Zoloft reviewed. Continue prn Buspar/hydroxyzine. Follow up in 2wks for recheck, sooner if needed. Return precautions reviewed. [facility] Work Phone: [phone] Evaluation + Plan note* Assessment & Plan Note - Jhon Scott DO - 06/02/2022 2:41 PM EDTAssociated Problem(s): Depression, major, single episode, mild (CMS/HCC) Lexapro trial [facility] Work Phone: [phone] History of Present illness Narrative* Jhon Scott DO - 06/02/2022 11:40 AM EDT 3 month check with labs. Thought could get off meds but a lot going on so would like to discuss them Subjective Patient ID: Radha Jackson is a 21 y.o. female who presents for Anxiety and Depression. HPI Regarding iron deficiency, levels improved on recheck. Switched to daily otc supplement, which she is better tolerating. Regarding vitamin D deficiency, no improvement with 2000iu every day. Regarding anx/dep, noticd about 1wk off the Vyvanse and Zoloft that she was no longer feeling like herself and started struggling again with mind racing, worry, low mood/motivation, depressive thoughts. 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 Pt is now home with her child while works 10hr days. Has a hard time sleeping due to mind racing. Is seeing her therapist a couple times per month. We restarted and then increased Zoloft to 50mg every day - not helping much. Review of Systems Constitutional: Negative for chills and fever. Respiratory: Negative for cough and shortness of breath. Cardiovascular: Negative for chest pain and palpitations. Skin: Negative for rash. Psychiatric/Behavioral: Positive for dysphoric mood. Objective BP 118/76 Pulse 72 Ht 1.702 m (5' 7) Wt 109 kg (239 lb 9.6 oz) BMI 37.53 kg/m Physical Exam Constitutional: Appearance: Normal appearance. HENT: Head: Normocephalic and atraumatic. Eyes: General: No scleral icterus. Conjunctiva/sclera: Conjunctivae normal. Cardiovascular: Rate and Rhythm: Normal rate. Pulmonary: Effort: Pulmonary effort is normal. No respiratory distress. Musculoskeletal: General: No swelling. Normal range of motion. Cervical back: Normal range of motion and neck supple. Skin: General: Skin is warm and dry. Findings: No rash. Neurological: General: No focal deficit present. Mental Status: She is alert. Psychiatric: Mood and Affect: Mood normal. Behavior: Behavior normal. Assessment/Plan Problem List Items Addressed This Visit Anxiety - Primary Struggling with both anx/dep since completely weaning the Zoloft/Vyvanse and restarting the Zoloft.Reviewed options. Using shared decision making, we decided to transition to Lexapro. Medication dosing, side effects, transition from Zoloft reviewed. Continue prn Buspar/hydroxyzine. Follow up in 2wks for recheck, sooner if needed. Return precautions reviewed. Relevant Medications escitalopram (Lexapro) 10 mg tablet Other Relevant Orders Follow Up In Primary Care Depression, major, single episode, mild (CMS/HCC) Lexapro trial Relevant Medications escitalopram (Lexapro) 10 mg tablet Other Relevant Orders Follow Up In Primary Care Iron deficiency Improved with otc supplement. Will continue to monitor. Vitamin D deficiency No better with 2000iu daily. Will proceed with high dose 50,000iu qwk x8wk. Relevant Medications ergocalciferol (Vitamin D-2) 1.25 MG (98758 UT) capsule documented in this [facility] Work Phone: [phone] History of Present illness Narrative* completely off vyvanse, didn't even last picker 20, a little anxiety since but recognize and could workthrough them * zoloft wean going well, tonight starting 50, next week nothing * sleeping better without vyvanse * taking 1/2 hydroxyzine due to grogginess prn and helps [facility] [address] DO Work Phone: [phone] History of Present illness Narrative* Patient presents today for follow up. * Regarding anx/dep, doing well with medication wean. Was able to completely stop the Vyvanse after aweek of 30mg and didn't need the 20mg. Will be decreasing the Zoloft to 50mg starting tonight and then will stop next week. Anxiety has peaked some, but states is able to recognize and work through it. Is sleeping better without the Vyvanse. Has tried taking 1/2 tablet hydroxyzine which also seems to help (full tablet caused grogginess). [facility] [address] DO Work Phone: Evaluation note* Diagnosis Anxiety Anxiety state, unspecified Depression, major, single episode, mild (CMS/HCC) documented in this encounter [facility] Work Phone: Evaluation note* Diagnosis Anxiety Anxiety state, unspecified Depression, major, single episode, mild (CMS/HCC) documented in this encounter [facility] Work Phone: Evaluation note* Diagnosis Anxiety Anxiety state, unspecified Depression, major, single episode, mild (CMS/HCC) documented in this encounter [facility] Work Phone: Evaluation note* Diagnosis Depression, major, single episode, mild (CMS/HCC)- Primary Anxiety Anxiety state, unspecified documented in this encounter [facility] Work Phone: Evaluation note* Diagnosis Class 3 severe obesity due to excess calories with serious comorbidity and body mass index (BMI) of 40.0 to 44.9 in adult (CMS/HCC)- Primary Anxiety Anxiety state, unspecified Depression, major, single episode, mild (CMS/HCC) documented in this encounter [facility] Work Phone: Evaluation note* Diagnosis Routine general medical examination at a health care facility- Primary Anxiety Anxiety state, unspecified Depression, major, single episode, mild (CMS/HCC) Class 3 severe obesity due to excess calories with serious comorbidity and body mass index (BMI) of 40.0 to 44.9 in adult (CMS/HCC) documented in this encounter [facility] Work Phone: Evaluation note* Diagnosis Anxiety- Primary Anxiety state, unspecified Depression, major, single episode, mild (CMS-HCC) Vitamin D deficiency Iron deficiency Disorders of iron metabolism Anxiety Anxiety state, unspecified Depression, major, single episode, mild (CMS-HCC) Anxiety Anxiety state, unspecified Depression, major, single episode, mild (CMS-HCC) Anxiety Anxiety state, unspecified Depression, major, single episode, mild (CMS-HCC) Anxiety Anxiety state, unspecified Depression, major, single episode, mild (CMS-HCC) Depression, major, single episode, mild (CMS-HCC)- Primary Anxiety Anxiety state, unspecified Class 3 severe obesity due to excess calories with serious comorbidity and body mass index (BMI) of 40.0 to 44.9 in adult- Primary Anxiety Anxiety state, unspecified Depression, major, single episode, mild (CMS-HCC) Routine general medical examination at a health care facility- Primary Anxiety Anxiety state, unspecified Depression, major, single episode, mild (CMS-HCC) Class 3 severe obesity due to excess calories with serious comorbidity and body mass index (BMI) of 40.0 to 44.9 in adult Vitamin D deficiency- Primary Anxiety Anxiety state, unspecified Depression, major, single episode, mild (CMS-HCC) Iron deficiency Disorders of iron metabolism Bilateral wrist pain Rash- Primary Rash and other nonspecific skin eruption Anxiety Anxiety state, unspecified Depression, major, single episode, mild (CMS-HCC) documented in this encounter [facility] Work Phone: Evaluation note* Diagnosis Anxiety- Primary Anxiety state, unspecified Depression, major, single episode, mild (CMS-HCC) Vitamin D deficiency Iron deficiency Disorders of iron metabolism Anxiety Anxiety state, unspecified Depression, major, single episode, mild (CMS-HCC) Anxiety Anxiety state, unspecified Depression, major, single episode, mild (CMS-HCC) Anxiety Anxiety state, unspecified Depression, major, single episode, mild (CMS-HCC) Anxiety Anxiety state, unspecified Depression, major, single episode, mild (CMS-HCC) Depression, major, single episode, mild (CMS-HCC)- Primary Anxiety Anxiety state, unspecified Class 3 severe obesity due to excess calories with serious comorbidity and body mass index (BMI) of 40.0 to 44.9 in adult (Multi)- Primary Anxiety Anxiety state, unspecified Depression, major, single episode, mild (CMS-HCC) Routine general medical examination at a health care facility- Primary Anxiety Anxiety state, unspecified Depression, major, single episode, mild (CMS-HCC) Class 3 severe obesity due to excess calories with serious comorbidity and body mass index (BMI) of 40.0 to 44.9 in adult (Multi) Vitamin D deficiency- Primary Anxiety Anxiety state, unspecified Depression, major, single episode, mild (CMS-HCC) Iron deficiency Disorders of iron metabolism Bilateral wrist pain documented in this encounter [facility] Work Phone: Evaluation note* Diagnosis Anxiety- Primary Anxiety state, unspecified Depression, major, single episode, mild (CMS/HCC) Vitamin D deficiency Iron deficiency Disorders of iron metabolism documented in this encounter [facility] Work Phone: Evaluation note* Diagnosis Anxiety- Primary Anxiety state, unspecified Depression, major, single episode, mild (CMS-HCC) Vitamin D deficiency Iron deficiency Disorders of iron metabolism Anxiety Anxiety state, unspecified Depression, major, single episode, mild (CMS-HCC) Anxiety Anxiety state, unspecified Depression, major, single episode, mild (CMS-HCC) Anxiety Anxiety state, unspecified Depression, major, single episode, mild (CMS-HCC) Anxiety Anxiety state, unspecified Depression, major, single episode, mild (CMS-HCC) Depression, major, single episode, mild (CMS-HCC)- Primary Anxiety Anxiety state, unspecified Class 3 severe obesity due to excess calories with serious comorbidity and body mass index (BMI) of 40.0 to 44.9 in adult- Primary Anxiety Anxiety state, unspecified Depression, major, single episode, mild (CMS-HCC) Routine general medical examination at a health care facility- Primary Anxiety Anxiety state, unspecified Depression, major, single episode, mild (CMS-HCC) Class 3 severe obesity due to excess calories with serious comorbidity and body mass index (BMI) of 40.0 to 44.9 in adult Vitamin D deficiency- Primary Anxiety Anxiety state, unspecified Depression, major, single episode, mild (CMS-HCC) Iron deficiency Disorders of iron metabolism Bilateral wrist pain Rash- Primary Rash and other nonspecific skin eruption Anxiety Anxiety state, unspecified Depression, major, single episode, mild (CMS-HCC) Nausea and vomiting, unspecified vomiting type- Primary documented in this encounter [facility] Work Phone: Evaluation note* Diagnosis Epigastric pain- Primary Abdominal pain, epigastric [facility] Diagnosis Epigastric pain- Primary Abdominal pain, epigastric Nausea Nausea alone [facility] Diagnosis Epigastric pain- Primary Abdominal pain, epigastric Nausea Nausea alone Epigastric pain Abdominal pain, epigastric Nausea Nausea alone documented in this encounter [facility] note* Diagnosis Epigastric pain Abdominal pain, epigastric Epigastric pain Abdominal pain, epigastric Nausea Nausea alone documented in this encounter [facility] noteNo assessment information availableWRiverside [facility] Work Phone: Hospital Discharge instructions* Attachments The following attachments cannot be sent through Care Everywhere. * Nausea and Vomiting, Adult ED ([place]) [facility] Work Phone: Hospital Discharge instructions Additional Instructions Follow-up with your [facility] in the outpatient setting on Sunday or scheduled appointment. Take your ultrasound results with you to that appointment. No lifting heavy things no exercising no intercourse you are placed on pelvic rest. Return if worsening symptoms or any concernsWRiverside [facility] Hospital Work Phone: Progress note Author Ana Laura Mercado [facility] Note Date/Time September 11, 2024 11:16 am [facility] [address] [place] [address], [address] [place] [address] OFFICE VISIT Date of Service: 09/11/24 MR#: [id number] Acct: [id number] Name: RADHA BOONE Rep #: [id number] : 2000 Provider: Dr. Ruel Mercado MD Age/Sex: 23/F Location: [facility] [place] Status: Signed Intake Vital Signs 07/16/24 10:23 08/11/24 10:06 09/11/24 10:43 09/11/24 11:06 Height 5 ft 7 in 5 ft 7 in 5 ft 7 in Weight: 262 lb 4 oz 269 lb BMI 41.1 BP 112/75 112/77 Intake Visit Reasons: 24 wk ob Allergies No Known Allergies Allergy (Verified 08/11/24 10:05) Last Menstrual Period: 03/26/24 : No PFSH PFSH Medical History Seasonal allergies Depression Anxiety Surgical History Previous section [place] teeth extracted Family History Mother Thyroid disorder, Onset Age: 38 Hypothyroid Diabetes GDM with both pregnancies Grandmother Thyroid disorder, Onset Age: 55 Maternal-thyroid nodules benign Diabetes Maternal type 2 Grandmother Diabetes Paternal type 2 Social History adopted: No household members: spouse and children housing: house number of children: 1 current occupational status: unemployed current occupation: [employer] pets and animals: Yes (Avoid litterbox) pets and animals: cat(s) and dog(s) history of recent travel: No sexually active: Yes Smoking Status: Former smoker quit date: 01/11/24 pack-years: 3 Electronic Cigarette Use: with nicotine second hand exposure: No quit status: quit date established alcohol intake: current alcohol intake frequency: holidays/special occasions only details: not while substance use type: former substance user Date of last use: last used 03/25/24 and marijuana well-balanced diet: daily or most days caffeine: Yes Type: coffee Number of servings: 1 eating out: 1-3 times/week during the past year weight has: decreased > 10 lbs what type of physical activity do you participate in: none janet/amish: Mosque seatbelt use: always do you feel safe at home: Yes 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 Date Name GA/Weeks Outcome Route Bth Weight Gen Labor Lgth Anesthesia Del Locatn Provider FOB 08/06/20 [place] 39 live - full term 8#1oz Female spinal [facility] Dr. Enedina Balbuena Delivery Date: 08/06/20 Last Updated by: Rona Huff meconium & decels, prolonged labor HPI 24 wk ob Details: RADHA BOONE is a 23 year old who presents for routine OB visit. OB Visit RICHARD Calculator Estimated Delivery Date Method Current WG Current Estimate 12/31/24 LMP (Certain) 24w 1d Other Estimates 12/30/24 Ultrasound #1 24w 2d Expected Delivery Route/Plan plans repeat C/S Specific Issue/Plans Covid status: [] Flu vaccine: [] Tdap vaccine: [] Rhogam: [] LARC form signed: [] Problem list reviewed and updated with the most current plan of care details and appropriate orders placed. Relevant counseling for the gestational age provided. Continue routine care and follow up unless otherwise noted in visit notes/problem list details Initial Weight: 250 lb Date -?-?-?-?-?-?-?-?-?-?-?-?- EGA Weight BP Urine Prot -?-?-?-?-?-?-?-?-?-?-?-?- Glucose FHR FuHt Pres Dilation -?-?-?-?-?-?-?-?-?-?-?-?- Effaced St Visit Note 05/23/24 -?-?-?-?-?-?-?-?-?-?-?-?- 8w 2d 250 lb (+0 oz) 108/79 -?-?-?-?-?-?-?-?-?-?-?-?- 171 -?-?-?-?-?-?-?-?-?-?-?-?- KW- CRL cons wit h dates. NIPT accepted. plans to get labs next visit. plans R C/S 06/13/24 -?-?-?-?-?-?-?-?-?-?-?-?- 11w 2d 253 lb (+3 lb) 123/82 Negative -?-?-?-?-?-?-?-?-?-?-?-?- Negative 162 -?-?-?-?-?-?-?-?-?-?-?-?- KW- work in for RLQ pain x 4 days. no fever, vomiting but having increased loose BMs. noticed spotting on and off today. positive McBurney's point with palpation. to ER for evaluation for appendicitis 06/19/24 -?-?-?-?-?-?-?-?-?-?-?-?- 12w 1d 255 lb 4 oz (+5 lb 4 oz) 128/84 -?-?-?-?-?-?-?-?-?-?-?-?- 150 -?-?-?-?-?-?-?-?-?-?-?-?- JV- has some bro wn discharge. has known OLE. abdominal scan today reassuring. 06/30/24 -?-?-?-?-?-?-?-?-?-?-?-?- 13w 5d 253 lb (+3 lb) 128/83 Negative -?-?-?-?-?-?-?-?-?-?-?-?- Negative 145 -?-?-?-?-?-?-?-?-?-?-?-?- KW- no vb/crampi ng for last few days. doing well. US scheduled for 08/07. has appt with counselor after appt but doing well. 07/16/24 -?-?-?-?-?-?-?-?-?-?-?-?- 16w 0d 254 lb 4 oz (+4 lb 4 oz) 118/72 Negative -?-?-?-?-?-?-?-?-?-?-?-?- Negative 144 -?-?-?-?-?-?-?-?-?-?-?-?- -No VB. Nausea resolved. Feeling flutters. 07/21/24 -?-?-?-?-?-?-?-?-?-?-?-?- 16w 5d 254 lb 8 oz (+4 lb 8 oz) 118/80 Negative -?-?-?-?-?-?-?-?-?-?-?-?- Negative 165 -?-?-?-?-?-?-?-?-?-?-?-?- KW- work in for FHT. having increased anxiety about wellbeing. fht and movement on US today. 08/11/24 -?-?-?-?-?-?-?-?-?-?-?-?- 19w 5d 262 lb 4 oz (+12 lb 4 oz) 112/75 Negative -?-?-?-?-?-?-?-?-?-?-?-?- Negative 163 -?-?-?-?-?-?-?-?-?-?-?-?- MH-No VB. Gustavo Heller Previa on US. Reviewed US, rpt sched 08/19 to complete anatomy. 09/11/24 -?-?-?-?-?-?-?-?-?-?-?-?- 24w 1d 269 lb (+19 lb) 112/77 Trace -?-?-?-?-?-?-?-?-?-?-?-?- Negative 150 24 -?-?-?-?-?-?-?-?-?-?-?-?- SM- no vb lof go od fm nor euglar ctx discussed previous trauma and reviewed. struggled with the epidural. ACOG First Trimester First Trimester: Discussed Second Trimester Second Trimester: Signs and Symptoms of Labor, Selecting a care provider, Reproductive Life Planning & Contreception, Care Planning, Depression/Anxiety and Intimate Partner Violence; Discussed Tobacco Cessation Third Trimester Third Trimester: Pain Management Plans, Labor support person(s), Immediate Larc, Signs and Symptoms of Preeclampsia, Infant Feeding No , Education and Family Medical Leave or Disability Forms Results POC Urinalysis 2 Dip (Clinic) Office Urine Glucose Negative Last Edit by Matt Hartmann on 09/11/24 10:50 Office Urine Protein Trace Last Edit by Matt Hartmann on 09/11/24 10:50 Coding Level of Care Code OB Routine Assessment and Plan Assessment and Plan Orders: Orders CBC W/Diff, Automated Today O09.92 - Supervision of high risk , unspecified, second trimester Glucose Challenge Gest 1H 50g Today O09.92 - Supervision of high risk , unspecified, second trimester, Z13.1 - Encounter for screening for diabetes mellitus HIV Today O09.92 - Supervision of high risk , unspecified, second trimester Syphilis Antibodies Today O09.92 - Supervision of high risk , unspecified, second trimester POC Urinalysis 2 Dip (Clinic) Today 09/11/24 1116 <Electronically signed by Ana Laura balderas MD> Date _ Ana Laura Mercado MD Cosigner Signature: Date (if applicable) CC: ~ [facility] Work Phone: reason for referral (narrative)* Consultation (Routine) - Authorized Specialty Diagnoses / Procedures Referred By Contac t Referred To Contact Primary Care Diagnoses Anxiety Depression, major, single episode, mild (CMS/HCC) Procedures Follow Up In Primary Care Jhon Scott DO [address] [place] [address] Referral ID Status Reason Start Date Expiration Date V isits Requested Visits Authorized [id number] Authorized 07/18/2022 01/14/2023 1 1 [facility] Work Phone: Rejpzv for referral (narrative)* Consultation (Routine) - Authorized Specialty Diagnoses / Procedures Referred By Contac t Referred To Contact Primary Care Diagnoses Anxiety Depression, major, single episode, mild (CMS/HCC) Procedures Follow Up In Primary Care Jhon Scott DO [address] [address] Referral ID Status Reason Start Date Expiration Date V isits Requested Visits Authorized [id number] Authorized 08/15/2022 02/11/2023 1 1 [facility] Work Phone: Rewjbu for referral (narrative)* Consultation (Routine) - Authorized Specialty Diagnoses / Procedures Referred By Contac t Referred To Contact Primary Care Diagnoses Anxiety Depression, major, single episode, mild (CMS/HCC) Procedures Follow Up In Primary Care - Established Jhon ScottDO [address] [address] Referral ID Status Reason Start Date Expiration Date V isits Requested Visits Authorized [id number] Authorized 11/14/2022 05/13/2023 1 1 [facility] Work Phone: Reghqf for referral (narrative)* Consultation (Routine) - Authorized Specialty Diagnoses / Procedures Referred By Contac t Referred To Contact Primary Care Diagnoses Depression, major, single episode, mild (CMS/HCC) Procedures Follow Up In Primary Care - Established Jhon ScottDO [address] [address] Referral ID Status Reason Start Date Expiration Date V isits Requested Visits Authorized [id number] Authorized 01/16/2023 01/16/2024 1 1 [facility] Work Phone: reason for referral (narrative)* Consultation (Routine) - Authorized Specialty Diagnoses / Procedures Referred By Contac t Referred To Contact Primary Care Diagnoses Anxiety Depression, major, single episode, mild (CMS/HCC) Class 3 severe obesity due to excess calories with serious comorbidity and body mass index (BMI) of 40.0 to 44.9 in adult (CMS/HCC) Procedures Follow Up In Primary Care - Established Jhon ScottDO [address] [facility] [address] [place] [address] Referral ID Status Reason Start Date Expiration Date V isits Requested Visits Authorized [id number] Authorized 05/15/2023 05/14/2024 1 1 [facility] Work Phone: reason for referral (narrative)* Consultation (Routine) - Authorized Specialty Diagnoses / Procedures Referred By Contac t Referred To Contact Primary Care Diagnoses Anxiety Depression, major, single episode, mild (CMS/HCC) Class 3 severe obesity due to excess calories with serious comorbidity and body mass index (BMI) of 40.0 to 44.9 in adult (CMS/HCC) Procedures Follow Up In Primary Care - Established Marry Scottann-marie Aguila DO [address] [address] Referral ID Status Reason Start Date Expiration Date V isits Requested Visits Authorized [id number] Authorized 06/20/2023 06/19/2024 1 1 T [facility] Work Phone: reason for referral (narrative)* Consultation (Routine) - Authorized Specialty Diagnoses / Procedures Referred By Contac t Referred To Contact Primary Care Diagnoses Anxiety Depression, major, single episode, mild (CMS-HCC) Vitamin D deficiency Iron deficiency Procedures Follow Up In Primary Care - Established Jhon ScottDO [address] [address] Referral ID Status Reason Start Date Expiration Date V isits Requested Visits Authorized [id number] Authorized 09/19/2023 09/18/2024 1 1 [facility] Work Phone: reason for referral (narrative)* Consultation (Routine) - Authorized Specialty Diagnoses / Procedures Referred By Contac t Referred To Contact Primary Care Diagnoses Anxiety Depression, major, single episode, mild (CMS/HCC) Procedures Follow Up In Primary Care Marry Scottann-marie Aguila DO [address] [address] Referral ID Status Reason Start Date Expiration Date V isits Requested Visits Authorized [id number] Authorized 06/02/2022 11/29/2022 1 1 [facility] Work Phone: Reason for referral (narrative)No reason for referral [facility] Reason for visit Narrative* Consultation (Routine) - Authorized Specialty Diagnoses / Procedures Referred By Contac t Referred To Contact Primary Care Diagnoses Anxiety Depression, major, single episode, mild (CMS/HCC) Procedures Follow Up In Primary Care Jhon Scott DO [address] [place] [address] Referral ID Status Reason Start Date Expiration Date V isits Requested Visits Authorized [id number] Authorized 07/18/2022 01/14/2023 1 1 [facility] Work Phone: Reason for visit Narrative* Consultation (Routine) - Authorized Specialty Diagnoses / Procedures Referred By Contac t Referred To Contact Primary Care Diagnoses Anxiety Depression, major, single episode, mild (CMS/HCC) Procedures Follow Up In Primary Care Jhon Scott DO [address] [place] [address] Referral ID Status Reason Start Date Expiration Date V isits Requested Visits Authorized [id number] Authorized 08/15/2022 02/11/2023 1 1 [facility] Work Phone: Reason for visit Narrative* Consultation (Routine) - Closed Specialty Diagnoses / Procedures Referred By Contac t Referred To Contact Primary Care Diagnoses Anxiety Depression, major, single episode, mild (CMS/HCC) Procedures Follow Up In Primary Care - Established Jhon Scott DO [address] [place] [address] Referral ID Status Reason Start Date Expiration Date Visits Re quested Visits Authorized [id number] Closed 11/14/2022 05/13/2023 1 1 [facility] Work Phone: reason for visit Narrative* Consultation (Routine) - Authorized Specialty Diagnoses / Procedures Referred By Contac t Referred To Contact Primary Care Diagnoses Anxiety Depression, major, single episode, mild (CMS/HCC) Class 3 severe obesity due to excess calories with serious comorbidity and body mass index (BMI) of 40.0 to 44.9 in adult (CMS/HCC) Procedures Follow Up In Primary Care - Established Jhon Scott, [address] [place] [address] Referral ID Status Reason Start Date Expiration Date V isits Requested Visits Authorized [id number] Authorized 05/15/2023 05/14/2024 1 1 [facility] Work Phone: reason for visit Narrative* Consultation (Routine) - Authorized Specialty Diagnoses / Procedures Referred By Contac t Referred To Contact Primary Care Diagnoses Anxiety Depression, major, single episode, mild (CMS-HCC) Vitamin D deficiency Iron deficiency Procedures Follow Up In Primary Care - Established Jhon Scott, [address] [address] Phone: tel: fax: Referral ID Status Reason Start Date Expiration Date V isits Requested Visits Authorized [id number] Authorized 09/19/2023 09/18/2024 1 1 [facility] Work Phone: reason for visit Narrative* Consultation (Routine) - Authorized Specialty Diagnoses / Procedures Referred By Contac t Referred To Contact Primary Care Diagnoses Anxiety Depression, major, single episode, mild (CMS-HCC) Class 3 severe obesity due to excess calories with serious comorbidity and body mass index (BMI) of 40.0 to 44.9 in adult (Multi) Procedures Follow Up In Primary Care - Established Jhon Scott DO [address] [facility] [address] [place] [id number] Referral ID Status Reason Start Date Expiration Date V isits Requested Visits Authorized [id number] Authorized 06/20/2023 06/19/2024 1 1 [facility] Work Phone: [facility] Narrative* Evaluate and Treat (Routine) - Pending Review Specialty Diagnoses / Procedures Referred By Leon davis Referred To Contact Gastroenterology Diagnoses Epigastric pain Jhon Scott DO [address] [facility] [address] [place] [address] Phone: tel: fax: Pal Booker MD [address] [place] [address] Phone: tel: fax: Referral ID Status Reason Start Date Expiration Date Visits Requested Visits Authorized [id number] Pending Review Specialty Services Required/Pat sy's Best Interest 03/10/2025 1 1 [facility] Summary Purpose Family History No Family History Records FoundUnknown Family Member Name Dates Details Family history of diabetes m ellitus: Mother, Father, Grandparent, Grandmother(V18.0, Z83.3) Status:Active Family history of hypertensi on: Mother, Father, Grandparent, Grandmother(V17.49, Z82.49) Status:Active Family history of Parkinson' s disease: Grandparent(V17.2, Z82.0) Status:Active Family history of cardiac di sorder: Grandparent, Grandmother(V17.49, Z82.49) Status:Active Unknown Family Member Name Dates Details Family history of diabetes m ellitus: Mother, Father, Grandparent, Grandmother(V18.0, Z83.3) Status:Active Family history of hypertensi on: Mother, Father, Grandparent, Grandmother(V17.49, Z82.49) Status:Active Family history of Parkinson' s disease: Grandparent(V17.2, Z82.0) Status:Active Family history of cardiac di sorder: Grandparent, Grandmother(V17.49, Z82.49) Status:Active Relationship Condition Age at Onset Recorded Date/T justo mother Disorder of thyroid 38 Diabetes mellitus Unknown grandmother Disorder of thyroid 55 grandmother Diabetes mellitus Unknown Advance Directives No Advanced Directives Records Found Advance Directive Response Recorded Date/ Time Living Will No May 20, 2024 12:36pm Power of Tile Presser No May 20 12:36pm Advance Directive Response Recorded Date/ Time Living Will No May 20, 2024 12:36pm Do you have a Healthcare Power of Tile Presser? No May 20, 2024 12:36pm Advance Directive Response Recorded Date/ Time Living Will No May 20, 2024 12:36pm Do you have a Healthcare Power of Tile Presser? No May 20, 2024 12:36pm Living Will No June 13, 2024 4:30pm Do you have a Healthcare Power of Tile Presser? No June 13, 2024 4:30pm Chief Complaint 2 week check with labs. Done with Vyvanse will start 50mg of Zoloft tonight2 week check with labs. Done with Vyvanse will start 50mg of Zoloft tonight Chief Complaint and Reason for Visit Chief Complaint Admit Date VAG BLEEDING May 20, 2024 11: 09am Chief Complaint Admit Date VAG BLEEDING May 20, 2024 11: 09am NOB, LMP 03/26, RICHARD 12/31/24 May 23, 2024 10:46am Reason for Visit Admit Date Hiatal hernia May 23, 2024 10: 46am History of nicotine vaping May 23 10:46am Marijuana smoker in remission May 10:46am Obesity affecting May 23, 2024 10:46am May 23, 2024 10: 46am Premature ventricular contractions May 23, 2024 10:46am Previous section May 23 10:46am Supervision of high-risk May 23, 2024 10:46am Vaginal bleeding affecting early pregnan cy May 23, 2024 10:46am Chief Complaint Admit Date VAG BLEEDING May 20, 2024 11: 09am NOB, LMP 03/26, RICHARD 12/31/24 May 23, 2024 10:46am brown spotting and pain June 13, 2024 3:47pm abd pain June 13, 2024 4:23 pm Reason for Visit Admit Date Hiatal hernia May 23, 2024 10: 46am History of nicotine vaping March 14th, 2 025 10:46am Marijuana smoker in remission May 10:46am Obesity affecting May 23, 2024 10:46am May 23, 2024 10: 46am Premature ventricular contractions May 23, 2024 10:46am Previous section May 23 10:46am Supervision of high-risk May 23, 2024 10:46am Vaginal bleeding affecting early pregnan cy May 23, 2024 10:46am Hiatal hernia June 13, 2024 3:47 pm History of nicotine vaping June 13 3:47pm Marijuana smoker in remission June 13, 2024 3:47pm Obesity affecting June 13, 2 025 3:47pm June 13, 2024 3:47 pm Premature ventricular contractions June 13, 2024 3:47pm Previous section June 13 3:47pm Supervision of high-risk June 13, 2024 3:47pm Chief Complaint Admit Date VAG BLEEDING May 20, 2024 11: 09am NOB, LMP 03/26, RICHARD 12/31/24 May 23, 2024 10:46am brown spotting and pain June 13, 2024 3:47pm abd pain June 13, 2024 4:23 pm 12 wk OB June 19, 2024 2:5 5pm Reason for Visit Admit Date Hiatal hernia May 23, 2024 10: 46am History of nicotine vaping May 23 2 025 10:46am Marijuana smoker in remission May 10:46am Obesity affecting May 23, 2024 10:46am May 23, 2024 10: 46am Premature ventricular contractions May 23, 2024 10:46am Previous section May 23 10:46am Supervision of high-risk May 23, 2024 10:46am Vaginal bleeding affecting early pregnan cy May 23, 2024 10:46am Hiatal hernia June 13, 2024 3:47 pm History of nicotine vaping June 13 3:47pm Marijuana smoker in remission June 13, 2024 3:47pm Obesity affecting June 13, 2 025 3:47pm June 13, 2024 3:47 pm Premature ventricular contractions June 13, 2024 3:47pm Previous section June 13 3:47pm Supervision of high-risk June 13, 2024 3:47pm Hiatal hernia June 19, 2024 2:5 5pm History of nicotine vaping June 19, 2 025 2:55pm Marijuana smoker in remission June 2:55pm Obesity affecting June 19, 2024 2:55pm June 19, 2024 2:5 5pm Premature ventricular contractions June 19, 2024 2:55pm Previous section June 19 2:55pm Supervision of high-risk June 19, 2024 2:55pm Abdominal pain of right lowe r quadrant during , antepartum June 19, 2024 2:55pm Chief Complaint Admit Date VAG BLEEDING May 20, 2024 11: 09am NOB, LMP 03/26, RICHARD 12/31/24 May 23, 2024 10:46am brown spotting and pain June 13, 2024 3:47pm abd pain June 13, 2024 4:23 pm 12 wk OB June 19, 2024 2:5 5pm Heartbeat check June 30, 2024 11: 20am 16 wk ob July 16, 2024 10:21a m FHT check July 21, 2024 3:17p m 20 wk ob August 11, 2024 9:55a m Reason for Visit Admit Date Hiatal hernia May 23, 2024 10: 46am History of nicotine vaping May 23, 025 10:46am Marijuana smoker in remission May 10:46am Obesity affecting May 23, 2024 10:46am May 23, 2024 10: 46am Premature ventricular contractions May 23, 2024 10:46am Previous section May 23 10:46am Supervision of high-risk May 23, 2024 10:46am Vaginal bleeding affecting early pregnan cy May 23, 2024 10:46am Hiatal hernia June 13, 2024 3:47 pm History of nicotine vaping June 13 3:47pm Marijuana smoker in remission June 13, 2024 3:47pm Obesity affecting June 13, 2 025 3:47pm June 13, 2024 3:47 pm Premature ventricular contractions June 13, 2024 3:47pm Previous section June 13 3:47pm Supervision of high-risk June 13, 2024 3:47pm Hiatal hernia June 19, 2024 2:5 5pm History of nicotine vaping June 19 025 2:55pm Marijuana smoker in remission June 2:55pm Obesity affecting June 19, 2024 2:55pm June 19, 2024 2:5 5pm Premature ventricular contractions June 19, 2024 2:55pm Previous section June 19 2:55pm Supervision of high-risk June 19, 2024 2:55pm Abdominal pain of right lowe r quadrant during , antepartum June 19, 2024 2:55pm Hiatal hernia June 30, 2024 11: 20am History of nicotine vaping June 30, 2 025 11:20am Marijuana smoker in remission June 11:20am Obesity affecting June 30, 2024 11:20am June 30, 2024 11: 20am Premature ventricular contractions June 30, 2024 11:20am Previous section June 30 11:20am Supervision of high-risk June 30, 2024 11:20am Hiatal hernia July 16, 2024 10:21a m History of nicotine vaping July 16, 2024 10:21am Marijuana smoker in remission July 16 10:21am Obesity affecting July 16 10:21am July 16, 2024 10:21a m Premature ventricular contractions July 162024 10:21am Previous section July 16, 2024 10:21am Supervision of high-risk July 162024 10:21am Hiatal hernia July 21, 2024 3:17p m History of nicotine vaping July 21 3:17pm Marijuana smoker in remission July 21, 2024 3:17pm Obesity affecting July 21 3:17pm July 21, 2024 3:17p m Premature ventricular contractions July 102024 3:17pm Previous section July 21, 2024 3:17pm Supervision of high-risk July 102024 3:17pm Complete placenta previa nos or without hemorrhage, second trimester August 11, 2024 9:55am Hiatal hernia August 11, 2024 9:55a m History of nicotine vaping August 11 9:55am Marijuana smoker in remission August 11, 2024 9:55am Obesity affecting August 11 9:55am August 11, 2024 9:55a m Premature ventricular contractions August 11, 2024 9:55am Previous section August 11, 2024 9:55am Supervision of high-risk August 11, 2024 9:55am Chief Complaint Admit Date VAG BLEEDING May 20, 2024 11: 09am NOB, LMP 1/15, RICHARD 12/31/24 May 23, 2024 10:46am brown spotting and pain June 13, 2024 3:47pm abd pain June 13, 2024 4:23 pm 12 wk OB June 19, 2024 2:5 5pm Heartbeat check June 30, 2024 11: 20am 16 wk ob July 16, 2024 10:21a m FHT check July 21, 2024 3:17p m 20 wk ob August 11, 2024 9:55a m 24 wk ob September 11, 2024 10:39 am Reason for Visit Admit Date Hiatal hernia May 23, 2024 10: 46am History of nicotine vaping May 23 025 10:46am Marijuana smoker in remission May 10:46am Obesity affecting May 23, 2024 10:46am May 23, 2024 10: 46am Premature ventricular contractions May 23, 2024 10:46am Previous section May 23 10:46am Supervision of high-risk May 23, 2024 10:46am Vaginal bleeding affecting early pregnan cy May 23, 2024 10:46am Hiatal hernia June 13, 2024 3:47 pm History of nicotine vaping June 13 3:47pm Marijuana smoker in remission June 13, 2024 3:47pm Obesity affecting June 13 2 025 3:47pm June 13, 2024 3:47 pm Premature ventricular contractions June 13, 2024 3:47pm Previous section June 13 3:47pm Supervision of high-risk June 13, 2024 3:47pm Hiatal hernia June 19, 2024 2:5 5pm History of nicotine vaping June 19, 2 025 2:55pm Marijuana smoker in remission June 2:55pm Obesity affecting June 19, 2024 2:55pm June 19, 2024 2:5 5pm Premature ventricular contractions June 19, 2024 2:55pm Previous section June 19 2:55pm Supervision of high-risk June 19, 2024 2:55pm Abdominal pain of right lowe r quadrant during , antepartum June 19, 2024 2:55pm Hiatal hernia June 30, 2024 11: 20am History of nicotine vaping June 30, 025 11:20am Marijuana smoker in remission June 11:20am Obesity affecting June 30, 2024 11:20am June 30, 2024 11: 20am Premature ventricular contractions June 30, 2024 11:20am Previous section June 30 11:20am Supervision of high-risk June 30, 2024 11:20am Hiatal hernia July 16, 2024 10:21a m History of nicotine vaping July 16, 2024 10:21am Marijuana smoker in remission July 16 10:21am Obesity affecting July 16 10:21am July 16, 2024 10:21a m Premature ventricular contractions July 162024 10:21am Previous section July 16, 2024 10:21am Supervision of high-risk July 162024 10:21am Hiatal hernia July 21, 2024 3:17p m History of nicotine vaping July 21 3:17pm Marijuana smoker in remission July 21, 2024 3:17pm Obesity affecting July 21 3:17pm July 21, 2024 3:17p m Premature ventricular contractions July 102024 3:17pm Previous section July 21, 2024 3:17pm Supervision of high-risk July 102024 3:17pm Complete placenta previa nos or without hemorrhage, second trimester August 11, 2024 9:55am History of nicotine vaping August 11 9:55am Marijuana smoker in remission August 11, 2024 9:55am Obesity affecting August 11 9:55am August 11, 2024 9:55a m Premature ventricular contractions August 11, 2024 9:55am Previous section August 11, 2024 9:55am Supervision of high-risk August 11, 2024 9:55am Additional Source Comments INFORMATION SOURCE (unrecogn ized section and content) DATE CREATED AUTHOR 08/30/2017 [facility] DATE CREATED AUTHOR AUTHOR'S ORGANIZ ATION 11/03/2017 [facility] DATE CREATED AUTHOR AUTHOR'S ORGANIZ ATION 02/24/2018 [facility] DATE CREATED AUTHOR AUTHOR'S ORGANIZ ATION 09/02/2018 [facility] DATE CREATED AUTHOR AUTHOR'S ORGANIZ ATION 02/04/2021 [facility] DATE CREATED AUTHOR AUTHOR'S ORGANIZ ATION 02/04/2021 [facility] DATE CREATED AUTHOR AUTHOR'S ORGANIZ ATION 03/25/2022 [facility] DATE CREATED AUTHOR AUTHOR'S ORGANIZ ATION 05/30/2022 [facility] DATE CREATED AUTHOR AUTHOR'S ORGANIZ ATION 12/06/2023 [facility] DATE CREATED AUTHOR AUTHOR'S ORGANIZ ATION 03/08/2024 [facility] DATE CREATED AUTHOR AUTHOR'S ORGANIZ ATION 03/09/2024 [facility] DATE CREATED AUTHOR AUTHOR'S ORGANIZ ATION 03/21/2024 [facility] DATE CREATED AUTHOR AUTHOR'S ORGANIZ ATION 04/05/2024 [facility] DATE CREATED AUTHOR AUTHOR'S ORGANIZ ATION 04/10/2024 [facility] DATE CREATED AUTHOR AUTHOR'S ORGANIZ ATION 08/20/2024 [facility] DATE CREATED AUTHOR AUTHOR'S ORGANIZ ATION 10/02/2024 [facility] Reason for Visit (unrecogniz ed section and content) Reason Comments Anxiety Depression Vitamin D Deficiency Iron Deficiency Specialty Diagnoses / Procedures Referred By Leon davis Referred To Contact Primary Care Diagnoses Anxiety Depression, major, single episode, mild (CMS/HCC) Procedures Follow Up In Primary Care Jhon Scott DO [address] [facility] [address] [place] [address] Referral ID Status Reason Start Date Expiration Date V isits Requested Visits Authorized [id number] Authorized 06/16/2022 12/13/2022 1 1 Reason Comments Anxiety Depression Reason Comments Nausea C/o nausea x 1 week when she eats. Denies v/d. Denies any urinary problems. C/o constipation Care Teams (unrecognized sec tion and content) Facial Operator Relationship Specialty Start Date End Date Jhon Scott DO [address] [address] PCP - General 03/09/22 Facial Operator Relationship Specialty Start Date End Date Jhon Scott DO [address] [address] PCP - General 03/09/22 Facial Operator Relationship Specialty Start Date End Date Jhon Scott DO [address] [address] PCP - General 03/09/22 Facial Operator Relationship Specialty Start Date End Date Marry Scottdisvitlana Aguila [address] [address] PCP - General 03/09/22 Marry Scottdisvitlana Aguila, DO [address] [address] PCP - MMO ACO PCP 11/10/22 Facial Operator Relationship Specialty Start Date End Date Jhon Scott [address] [address] PCP - General 03/09/22 Marry Scottdisvitlana Aguila, DO [address] [address] PCP - MMO ACO PCP 11/10/22 Facial Operator Relationship Specialty Start Date End Date Marry Scottdisvitlana Aguila, DO [address] [address] PCP - General 03/09/22 Jhon Scott DO [address] [address] PCP - MMO ACO PCP 11/10/22 Facial Operator Relationship Specialty Start Date End Date Jhon Scott DO [address] [address] PCP - General 03/09/22 Facial Operator Relationship Specialty Start Date End Date Jhon Scott DO [address] [address] PCP - General 03/09/22 Jhon Scott DO [address] [address] PCP - MMO ACO PCP 11/10/22 Facial Operator Relationship Specialty Start Date End Date Jhon Scott DO [address] [address] PCP - General 03/09/22 Facial Operator Relationship Specialty Start Date End Date No, Physician [facility] PCP - General 03/24/21 Facial Operator Relationship Specialty Start Date End Date No, Physician [facility] PCP - General 03/24/21 Facial Operator Relationship Specialty Start Date End Date No, Physician [facility] PCP - General 03/24/21 Facial Operator Relationship Specialty Start Date End Date No, Physician [facility] PCP - General 03/24/21 Team Status: Active Member Role Status Dates JHON SCOTT DO Primary Care Provider Active Team Status: Inactive Member Role Status Dates Dr. Brody Cleaning DO Emergency Provider Active Start: May 20, 2024 End: May 20, 2024 JHON SCOTT DO Primary Care Provider Active Start: May 20, 2024 End: May 20, 2024 Team Status: Inactive Member Role Status Dates Dr. Brody Cleaning DO Attending Provider Active Start: May 20, 2024 End: May 20, 2024 Dr. Brody Cleaning , Emergency Provider Active Start: May 20, 2024 End: May 20, 2024 JHON SCOTT DO Primary Care Provider Active Start: May 20, 2024 End: May 20, 2024 Team Status: Inactive Member Role Status Dates No Primary Care Physician Referring Provider Active Start: May 23, 2024 End: May 23, 2024 Amada Black CNM Attending Provider Active S tart: May 23, 2024 End: May 23, 2024 JHON HALE , DO Primary Care Provider Active Start: May 23, 2024 End: May 23, 2024 Team Status: Inactive Member Role Status Dates JHON SCOTT DO Primary Care Provider Active Start: May 23, 2024 End: May 23, 2024 Amada Black CNM Attending Provider Active S tart: May 23, 2024 End: May 23, 2024 Team Status: Inactive Member Role Status Dates JHON SCOTT DO Primary Care Provider Active Start: June 13, 2024 End: June 13, 2024 JHON SCOTT DO Referring Provider Active Sta rt: June 13, 2024 End: June 13, 2024 Amada Black CNM Attending Provider Active S tart: June 13, 2024 End: June 13, 2024 Team Status: Inactive Member Role Status Dates JHON SCOTT DO Primary Care Provider Active Start: June 13, 2024 End: June 13, 2024 Dr. Rubens Escudero MD Emergency Provider Active Start: June 13, 2024 End: June 13, 2024 Team Status: Inactive Member Role Status Dates JHON SCOTT DO Primary Care Provider Active Start: June 13, 2024 End: June 13, 2024 Dr. Rubens Escudero MD Attending Provider Active Start: June 13, 2024 End: June 13, 2024 Dr. Rubens Escudero MD Emergency Provider Active Start: June 13, 2024 End: June 13, 2024 Team Status: Inactive Member Role Status Dates No Primary Care Physician Referring Provider Active Start: June 19, 2024 End: June 19, 2024 Dr. Elissa Weldon DO Attending Provider Activ e Start: June 19, 2024 End: June 19, 2024 JHON HALE , DO Primary Care Provider Active Start: June 19, 2024 End: June 19, 2024 Team Status: Inactive Member Role Status Dates JHON SCOTT , DO Primary Care Provider Active Start: June 19, 2024 End: June 19, 2024 Dr. Elissa Weldon , DO Attending Provider Activ e Start: June 19, 2024 End: June 19, 2024 Dr. Elissa Weldon , DO Referring Provider Activ e Start: June 19, 2024 End: June 19, 2024 Team Status: Inactive Member Role Status Dates JHON SCOTT DO Primary Care Provider Active Start: June 30, 2024 End: June 30, 2024 JHONANN-MARIE SCOTT , DO Referring Provider Active Sta rt: June 30, 2024 End: June 30, 2024 Amada Black CNM Attending Provider Active S tart: June 30, 2024 End: June 30, 2024 Team Status: Inactive Member Role Status Dates JHON SCOTT DO Primary Care Provider Active Start: July 16, 2024 End: July 16, 2024 JHON SCOTT , DO Referring Provider Active Sta rt: July 16, 2024 End: July 16, 2024 Matt Ashley NP CUSTOMER SERVICE COORDINATOR-C Attending Provider Active Start: July 16, 2024 End: July 16, 2024 Team Status: Inactive Member Role Status Dates JHON SCOTT DO Primary Care Provider Active Start: July 21, 2024 End: July 21, 2024 JHON SCOTT DO Referring Provider Active Sta rt: July 21, 2024 End: July 21, 2024 Amada Black CNM Attending Provider Active S tart: July 21, 2024 End: July 21, 2024 Team Status: Inactive Member Role Status Dates JHON SCOTT DO Primary Care Provider Active Start: August 11, 2024 End: August 11, 2024 JHON SCOTT DO Referring Provider Active Sta rt: August 11, 2024 End: August 11, 2024 Matt Ashley CUSTOMER SERVICE COORDINATOR CUSTOMER SERVICE COORDINATOR-C Attending Provider Active Start: August 11, 2024 End: August 11, 2024 Team Status: Active Member Role/Relationship Status Dates JHON SCOTT DO Primary Care Provider Active Team Status: Inactive Member Role/Relationship Status Dates Dr. Brody Cleaning DO Attending Provider Active Start: May 20, 2024 End: May 20, 2024 Dr. Brody Cleaning DO Emergency Provider Active Start: May 20, 2024 End: May 20, 2024 JHON SCOTT DO Primary Care Provider Active Start: May 20, 2024 End: May 20, 2024 Team Status: Inactive Member Role/Relationship Status Dates No Primary Care Physician Referring Provider Active Start: May 23, 2024 End: May 23, 2024 Amada Black CNM Attending Provider Active S tart: May 23, 2024 End: May 23, 2024 JHON SCOTT DO Primary Care Provider Active Start: May 23, 2024 End: May 23, 2024 Team Status: Inactive Member Role/Relationship Status Dates JHON SCOTT DO Primary Care Provider Active Start: May 23, 2024 End: May 23, 2024 Amada Black CNM Attending Provider Active S tart: May 23, 2024 End: May 23, 2024 Team Status: Inactive Member Role/Relationship Status Dates JHON SCOTT DO Primary Care Provider Active Start: June 13, 2024 End: June 13, 2024 JHON SCOTT DO Referring Provider Active Sta rt: June 13, 2024 End: June 13, 2024 Amada Black CNM Attending Provider Active S tart: June 13, 2024 End: June 13, 2024 Team Status: Inactive Member Role/Relationship Status Dates JHON SCOTT DO Primary Care Provider Active Start: June 13, 2024 End: June 13, 2024 Dr. Rubens Escudero MD Attending Provider Active Start: June 13, 2024 End: June 13, 2024 Dr. Rubens Escudero MD Emergency Provider Active Start: June 13, 2024 End: June 13, 2024 Team Status: Inactive Member Role/Relationship Status Dates No Primary Care Physician Referring Provider Active Start: June 19, 2024 End: June 19, 2024 Dr. Elissa Wedlon DO Attending Provider Activ e Start: June 19, 2024 End: June 19, 2024 JHON SCOTT DO Primary Care Provider Active Start: June 19, 2024 End: June 19, 2024 Team Status: Inactive Member Role/Relationship Status Dates JHON SCOTT , DO Primary Care Provider Active Start: June 19, 2024 End: June 19, 2024 Dr. Elissa Weldon , Attending Provider Activ e Start: June 19, 2024 End: June 19, 2024 Dr. Elissa Weldon , DO Referring Provider Activ e Start: June 19, 2024 End: June 19, 2024 Team Status: Inactive Member Role/Relationship Status Dates JHON SCOTT DO Primary Care Provider Active Start: June 30, 2024 End: June 30, 2024 JHON HALE , DO Referring Provider Active Sta rt: June 30, 2024 End: June 30, 2024 Amada Black CNM Attending Provider Active S tart: June 30, 2024 End: June 30, 2024 Team Status: Inactive Member Role/Relationship Status Dates JHON SCOTT DO Primary Care Provider Active Start: July 16, 2024 End: July 16, 2024 JHON SCOTT , DO Referring Provider Active Sta rt: July 16, 2024 End: July 16, 2024 Matt Ashley NP, CUSTOMER SERVICE COORDINATOR-C Attending Provider Active Start: July 16, 2024 End: July 16, 2024 Team Status: Inactive Member Role/Relationship Status Dates JHON SCOTT DO Primary Care Provider Active Start: July 21, 2024 End: July 21, 2024 JHON SCOTT , DO Referring Provider Active Sta rt: July 21, 2024 End: July 21, 2024 Amada Black CNM Attending Provider Active S tart: July 21, 2024 End: July 21, 2024 Team Status: Inactive Member Role/Relationship Status Dates JHON SCOTT DO Primary Care Provider Active Start: August 11, 2024 End: August 11, 2024 JHON SCOTT , DO Referring Provider Active Sta rt: August 11, 2024 End: August 11, 2024 Matt Ashley CUSTOMER SERVICE COORDINATOR, CUSTOMER SERVICE COORDINATOR-C Attending Provider Active Start: August 11, 2024 End: August 11, 2024 Team Status: Inactive Member Role/Relationship Status Dates JHON SCOTT DO Primary Care Provider Active Start: September 11, 2024 End: September 11, 2024 JHON HALE , DO Referring Provider Active Sta rt: September 11, 2024 End: September 11, 2024 Dr. Ana Laura Mercado MD Attending Provider Active Start: September 11, 2024 End: September 11, 2024 Scheduled Active and Recently Administ ered Medications (unrecognized section and content) Medication Order 03/04/2024 03/05/2024 03/06/2024 iohexol (OMNIPaque) 350 mg iodine/mL solution 67 mL (COMPLETED) 67 mL, intravenous, Once in imaging, Starting on Beba 03/06/24 at 1824, For 1 dose 1825 (Given - Provid er: Yaritza Borrego) Goals (unrecognized section and content) Goals may be documented in a n alternate sectionGoals may be documented in an alternate sectionGoals may be documented in an alternate sectionGoals may be documented in an alternate sectionGoals may be documented in an alternate sectionGoals may be documented in an alternate section FOR RECORDS PERTAINING TO PATIENTS WHO ARE OR HAVE BEEN ENROLLED IN A CHEMICAL DEPENDENCY/SUBSTANCEABUSE PROGRAM, SOME INFORMATION MAY BE OMITTED. This clinical summary was aggregated from multiple sources. Caution should be exercised in using it in the provision of clinical care. This summary normalizes information from multiple sources, and as a consequence, information in this document may materially change the coding, format and clinical context of patient data. In addition, data may be omitted in some cases. CLINICAL DECISIONS SHOULD BE BASED ON THE PRIMARY CLINICAL RECORDS. [employer] provides no warranty or guarantee of the accuracy or completeness of information in this document.
[2024-10-05 14:53] VITALS: BMI 43.7
--- NOTE | 2024-10-05 15:06 | US_ITS ---
PROCEDURE: OB LIMITED WITH BIOMETRICS 10/05/2024 REASON FOR EXAM: COMPLETE PREVIA, FOCUS ON PLACENTA TECHNIQUE: OB LIMITED WITH BIOMETRICS' transabdominal imaging. COMPARISON: none FINDINGS Intrauterine with position in cephalic position. cardiac activity of 143 beats per minute. Maximum vertical pocket of 3.5 cm. ITA of 10cm. Placental position is posterior and within normal limits. No placenta previa is noted on today's ultrasound. Cervical length of 4.2cm. Biometry: BPD of 7.2 cm. 75%. OFD of 9.1 cm. 91%. HC of 26.1 cm. 49%. AC of 24.5 cm. 78%. FL of 5.1 cm. 33%. estimated weight of 1223g. 67% Overall sonographic gestation age of 28 weeks and 2 days. RICHARD of 12/26/24 US/OB Limited With Biometrics IMPRESSION: Sonographic gestation age of 28 weeks and 2 days. RICHARD of 12/26/24 Biometry results as above. Reading Location: [id number]
--- NOTE | 2024-10-05 17:15 | OB.TRI.PN ---
Progress Notes Date of Service: 10/05/24 Progress Note: Patient presents for triage evaluation secondary to vaginal spotting at 27 weeks. Had one episode of small clot in toilet earlier today. no further bleeding. no ctx. +fm. FHT: Moderate variability reactive no decelerations category I tracing [place]: none Contractions Assessment and plan: spec exam was negative for blood, closed cervix. US pending. Reactive NST, reassuring maternal and status patient discharged to home to follow-up this week in the office.. See problem list details for additional plan information. Charges/Coding Multi Select Codes Visit Charges Office Visit/Consults: 69233 OV L3 Est 20min Urinary/Genital Urinary/Genital CPT Codes: 62264-18 non-stress test Interp Assessment & Plan (1) Vaginal bleeding during : COMMENT: cervix closed and no vaginal bleeding on spec exam. US pending. d/c home (2) Complete placenta previa nos or without hemorrhage, second trimester: COMMENT: repeat US at 28 weeks Pelvic rest (3) Marijuana smoker in remission: COMMENT: last used 03/25/24, education provided, informed of initial tox screen & random testing during (4) History of nicotine vaping: COMMENT: Quit 01/11/24 (5) Supervision of high-risk : QUALIFIERS: Trimester: second trimester Qualified Code(s): O09.92 - Supervision of high risk , unspecified, second trimester COMMENT: PRR, , RICHARD 12/31/24 Boy, PC Alyssa, Sree (6) : QUALIFIERS: Weeks of gestation: 19 weeks Qualified Code(s): Z3A.19 - 19 weeks gestation of COMMENT: discussed NIPT & Carrier testing- Undecided NIPT-Low Risk. Rpt US 08/19 to complete anatomy. (7) Premature ventricular contractions: COMMENT: started with COVID in last (8) Obesity affecting : QUALIFIERS: Trimester: second trimester Obesity type affecting : unspecified obesity Qualified Code(s): O99.212 - Obesity complicating , second trimester COMMENT: HgbA1c NSTs at 37 weeks (9) Hiatal hernia: COMMENT: dx 03/2024, small hernia (10) Previous section: COMMENT: plans repeat C/S. RLTCS BS 12/24/24 SM.
[2024-10-05 17:49] VITALS: PULSE 80; O2SAT 97
[2024-10-05 17:50] VITALS: PULSE 84; O2SAT 92
== END 2024-10-05 18:55 | disposition home or self-care (01) ==
LOC: WPOUT 14:34 → WP 14:36
PROVIDERS: PCP Student in an Organized Health Care Education/Training Program; Referring Provider Advanced Practice Midwife; Visit Provider Advanced Practice Midwife
DX: O44.02 Complete placenta previa NOS or without hemorrhage, second trimester (principal); O99.212 Obesity complicating pregnancy, second trimester; Z3A.27 27 weeks gestation of pregnancy
CPT/HCPCS: 59025; 59050; 76816; 99221; G0378

== ENCOUNTER → 2024-10-10 | Outpatient (CLI) | payer BC, SELFPAY ==
[2024-10-10 11:45] LABS: Hematocrit 35.0 % (37-47); Hemoglobin 11.9 g/dL (12.0-15.0); Immature Granulocytes Count 0.050 X10^3/uL (0.0-0.0); Mean Corp Hgb Conc 34.0 g/dL (32-36); Mean Corpuscular Volume 86.0 fL (81-99); Mean Platelet Vol. 10.0 fl (6.2-12.0); NRBC Flagged by Analyzer 0 % (0-5); Platelet Count 241 K/mm3 (150-450); RBC Distribution Width CV 13.1 % (11.6-14.6); RBC Distribution Width SD 40.3 fl (35.1-43.9); Red Blood Count 4.07 M/mm3 (4.2-5.4); White Blood Count 8.9 K/mm3 (4.4-11.0)
[2024-10-10 12:24] LABS: Glucose Challenge Gest 1H 50g 166 mg/dL (70-140); HIV Nonreactive (Nonreactive); Syphilis Antibodies Nonreactive (Nonreactive)
== END | disposition home or self-care (01) ==
LOC: BWCLAB 10:00
PROVIDERS: PCP Student in an Organized Health Care Education/Training Program; Referring Provider Obstetrics & Gynecology; Visit Provider Obstetrics & Gynecology
DX: O09.92 Supervision of high risk pregnancy, unspecified, second trimester (principal); Z3A.00 Weeks of gestation of pregnancy not specified; Z13.1 Encounter for screening for diabetes mellitus
CPT/HCPCS: 36415; 82950; 85025; 86703; 86780

== ENCOUNTER → 2024-11-06 | Outpatient (CLI) | payer BC, SELFPAY ==
[2024-11-06 10:54] LABS: Glucose GTT-Gestation. Fasting 92 mg/dL (<105)
[2024-11-06 12:38] LABS: Glucose GTT-Gestational 1 Hr 121 mg/dL (<190)
[2024-11-06 13:41] LABS: Glucose GTT-Gestational 2 Hr 145 mg/dL (<165)
[2024-11-06 15:01] LABS: Glucose GTT-Gestational 3 Hr 120 L (<145)
== END | disposition home or self-care (01) ==
LOC: LAB 10:05
PROVIDERS: PCP Student in an Organized Health Care Education/Training Program; Referring Provider Obstetrics & Gynecology; Visit Provider Obstetrics & Gynecology
DX: Z13.1 Encounter for screening for diabetes mellitus (principal)
CPT/HCPCS: 36415; 82951; 82952

== ENCOUNTER 2024-12-03 15:00 | Outpatient (CLI) | payer BC, SELFPAY ==
--- NOTE | 2024-12-03 15:32 | US_ITS ---
PROCEDURE: OB BIOPHYSICAL PROF W/O NST 12/03/2024 REASON FOR EXAM: VARIABLE IN OFFICE TECHNIQUE: Procedure Code: USBIOWO Modality: US Procedure: OB BIOPHYSICAL PROF W/O NST COMPARISON: 10/05/2024. FINDINGS Breathing movements: 2 Gross body movement: 2 tone: 2 Amniotic fluid volume: 2 Cephalic presentation. heart rate of 136 beats per minute. ITA of 16.1. Posterior located placenta. US/OB Biophysical Prof W/O NST IMPRESSION: Biophysical profile 10/17. Reading Location: [id number]
[2024-12-03 15:35] VITALS: BMI 46.8
--- NOTE | 2024-12-03 15:35 | US_ITS ---
PROCEDURE: OB LIMITED WITH BIOMETRICS 12/03/2024 REASON FOR EXAM: GROWTH Follow-up TECHNIQUE: Procedure Code: [id number] Modality: US Procedure: OB LIMITED WITH BIOMETRICS COMPARISON: 10/05/2024 FINDINGS Number: 1 Position: Vertex Placental Position: Posterior Placental Abnormalities: No evidence of previa or accreta. DIMENSIONS: Biparietal Diameter: 9.4 cm/38 weeks 1 day Head Circumference: 32.3 cm/36 weeks 3 days Abdominal Circumference: 32 cm/36 weeks 0 days Femur Length: 7 cm/36 weeks 0 days ESTIMATED WEIGHT: 2952+/- 443g ESTIMATED WEIGHT PERCENTILE (24+ weeks): 65 ESTIMATED GESTATIONAL AGE: By Ultrasound: 36 weeks 3 days ESTIMATED DATE OF DELIVERY: By Ultrasound: 12/28/2024 Normal growth noted since the previous study BIOPHYSICAL ASSESSMENT: Amniotic Fluid Volume: 14.1 Amniotic Fluid Index: (8-24 cm normal range) Cardiac Motion: 141 (average) Trunk and Limb Motion: Present. MATERNAL ANATOMY: Adnexa: Neither maternal ovary is successfully identified. Cervical Length (if measured): ANATOMY: Detailed anatomical survey not performed US/OB Limited With Biometrics IMPRESSION: Single live intrauterine at 36 weeks 3 days by current ultrasound wit h RICHARD of 12/28/2024. Heart rate of 141 beats per minute. No suspicious sonographic findings, normal growth noted since the prev ious study Reading Location: [id number]
[2024-12-03 16:29] VITALS: BP 125/83; PULSE 78; TEMP 37.1
[2024-12-03 16:30] VITALS: PULSE 75; RESP 14; TEMP 36.7; O2SAT 100; O2SAT 99
--- OUTSIDE RECORDS SUMMARY | 2024-12-03 18:23 | XMS RPT_ITS | CCD ---
Author Organization [facility] CliniSyky Care Team Providers Care Garbage Collection Supervisor Name Role Phone Dillonn Merle L Unavailable [...] Provider SCOTT DO, JHON Primary Care Provider Dr. Brody Cleaning DO Attending Provider Care Physician, No Primary Referring Provider Un available Amada Black CNM Attending Provider SCOTT DO, JHON Referring Provider Kena SOOD, Dr. Art Emergency Provider Kena SOOD, Dr. Art Attending Provider Dr. Elissa Weldon DO Attending Provider Charlie Quintanilla DO, Dr. Bowers Referring Provider Gabi CASSIDY-CMatt Attending Provider NO PRIMARY CARE, Primary Care Unavailable ELISSA FREEDMAN Referring Unavailab CK Steele Attending Unavailable NO PRIMARY CARE, Primary Care Unavailable MARIA ANTONIA AMBROSE Attending Unavailable MATT ASHLEY S Referring Unavailable Dr. Ana Laura Mercado MD Attending Provider SCOTT DO, JHON Primary Care Provider Amada Black CNM Attending Provider Care Physician, No Primary Referring Provider Un available Amada Black CNM Referring Provider Amada Black CNM Other Provider Dr. Ana Laura Mercado MD Referring Provider SCOTT DO, JHON Primary Care Provider SCOTT DO, JHON Referring Provider Amada Black CNM Attending Provider SCOTT DO, JHON Primary Care Provider Dr. Elissa Weldon DO Attending Provider SCOTT DO, JHON Primary Care Provider SCOTT DO, JHON Referring Provider Wayne RAE, Amada Attending Provider SCOTT DO, JHON Primary Care Provider SCOTT DO, JHON Referring Provider Gabi BAND HEAD SAW OPERATOR-C, Matt Attending Provider [place] BAND HEAD SAW OPERATOR, Matt Attending Unavailable SCOTT, JHON Primary Care Unavailable SCOTT, JHON Referring Unavailable SCOTT, JHON Primary Care Unavailable SCOTT, JHON Referring Unavailable MarcelvinonyAna Laura Attending Unavailable MarcanthonyAna Laura Attending Unavailable SCOTT, JHON Referring Unavailable SCOTT, JHON Primary Care Unavailable SCOTT, JHON Primary Care Unavailable Care Physician, No Primary Referring Unava ilable Amada Black Attending Unavailable Vande VelElissa mayers Referring Unavailabl e Vande VeldeElissa Attending Unavailabl e SCOTT, JHON Primary Care Unavailable SCOTT, JHON Primary Care Unavailable Rubens Escudero Attending Unavailable SCOTT, JHON Primary Care Unavailable Ana Laura Mercado Attending Unavailable Ana Laura Mercado Admitting Unavailable SCOTT, JHON Primary Care Unavailable Amada Black Attending Unavailable Amada Black Referring Unavailable Ana Laura Mercado Attending Unavailable SCOTT, JHON Primary Care Unavailable Ana Laura Mercado Referring Unavailable SCOTT, JHON Primary Care Unavailable Ana Laura Mercado Attending Unavailable Ana Laura Mercado Referring Unavailable SCOTT, JHON Referring Unavailable Ana Laura Mercado Attending Unavailable SCOTT, JHON Primary Care Unavailable Vande VeldeElissa Attending Unavailabl e SCOTT, JHON Primary Care Unavailable SCOTT, JHON Referring Unavailable SCOTT, JHON Primary Care Unavailable SCOTT, JHON Referring Unavailable Amada Black Attending Unavailable SCOTT, JHON Primary Care Unavailable SCOTT, JHON Referring Unavailable Ana Laura Mercado Attending Unavailable SCOTT, JHON Primary Care Unavailable SCOTT, JHON Referring Unavailable Ana Laura Mercado Attending Unavailable SCOTT, JHON Primary Care Unavailable Amada Black Referring Unavailable Amada Black Attending Unavailable Amada Black Consulting Unavailable Vande Velde, Elissa Attending [facility] Care Physician, No Primary Referring Unava ilable SCOTT, JHON Primary Care Unavailable SCOTT, JHON Referring Unavailable SCOTT, JHON Primary Care Unavailable Amada Black Attending Unavailable SCOTT, JHON Referring Unavailable Matt Ashley NP Attending Unavailable SCOTT, JHON Primary Care Unavailable SCOTT, JHON Referring Unavailable SCOTT, JHON Primary Care Unavailable Amada Black Attending Unavailable SCOTT, JHON Primary Care Unavailable Amada Black Attending Unavailable Ana Laura Mercado Referring Unavailable Ana Laura Mercado Attending Unavailable SCOTT, JHON Primary Care Unavailable SCOTT, JHON Primary Care Unavailable Brody Cleaning Attending Unavailable Allergies Allergy Classification Reported Allergen(s) Allergy Type Date of Onset Reaction(s) Facility (6 sources) topiramate; Translations: [TOPIRAMATE] Drug Allergy 09-06-2017 Other (See Comments) [facility] Medications Current Medications Medication Drug Class(es) Dates Sig (Normalized) Sig (Original) [id number] 200 actuat albuterol 0.09 mg/actuat metered dose [...] DAILY. Quantity: 60 Refills: 1 Ordered: 23-Mar-2022 Jhon Scott DO Start : 23-Mar-2022 Active take 1 tablet by kamla th every twelve hours busPIRone (Buspar) 5 mg tablet Take 1 tablet (5 mg) by mouth every 12 hours. Active take 1 tablet by kamla th every twelve hours busPIRone (Buspar) 5 mg tablet Take 1 tablet (5 mg) by mouth in the morning and 1 tablet (5 mg) in the evening. 0 Active ergocalciferol 1.25 mg oral capsule (2 sources) Provitamin D2 Compound Start: 06-02-2022 End: 07-28-2022 take 1 capsule by mouth every week ergocalciferol (Vitamin D-2) 1.25 MG (77930 UT) capsule Indications: Vitamin D deficiency Take 1 capsule (50,000 Units) by mouth 1 (one) time per week. 8 capsule 0 06/02/2022 07/28/2022 Active famotidine 20 mg oral tablet (3 sources) Histamine-2 Receptor Antagonist Start: 11-07-2024 take 1 tablet by mouth twice daily Famotidine (Pepcid) 20 mg tablet Active 20 mg PO TWICE A DAY 60 6 November 07, 2024 12:00am hydrOXYzine hydrochloride 25 mg oral tablet (15 [...] (one) tablet by mouth daily . Active 737-Vnct-Kjxqw Ac-Dha 1 EACH combo pack (13 sources) Start: 12-28-2019 take 1 dose by mouth once daily 176-Wmew-Sdoza Ac-Dha 1 EACH combo pack Active 1 [...] Drug Class(es) Dates Sig (Normalized) Sig (Original) cholecalciferol 0.05 mg oral capsule (20 sources) Vitamin D Start: 05-06-2024 End: 10-05-2024 take 1 capsule by mouth once daily Cholecalciferol (Vitamin D3) 50 mcg (2,000 unit) capsule Discontinued 50 ug PO daily May 06, 2024 1:00am October 05, 2024 2:54pm Start: 03-15-2022 take 1 tablet by kamla once daily cholecalciferol, vitamin D3, 50 mcg (2,000 unit) Tab Take 1 (one) tablet (2,000 Units total) by mouth daily . 03/15/2022 Active Start: 03-15-2022 End: 11-14-2022 take 1 tablet by mouth once daily cholecalciferol (Vitamin D-3) 50 MCG (2000 UT) tablet Take 1 tablet (50 mcg) by mouth once daily. 0 03/15/2022 11/14/2022 Discontinued (Therapy completed) escitalopram 20 mg oral tablet (20 sources) Serotonin Reuptake Inhibitor Start: 02-01-2024 End: 08-12-2024 take 1 tablet by mouth once daily Escitalopram Oxalate (Lexapro) 20 mg tablet Discontinued 20 mg PO daily May 06, 2024 1:00am August 12, 2024 12:15pm Start: 12-14-2023 End: 07-22-2024 take 1 tablet [...] daily. 30 tablet 5 06/02/2022 11/29/2022 Active ferrous sulfate 325 mg oral tablet (6 [...] : 07-Feb-2022 End : 23-Mar-2022 Complete Magnesium (13 sources) Start: 08-04-2020 End: 05-06-2024 Magnesium 500 mg Tablet Discontinued PO August 04, 2020 12:00am May 06, 2024 11:20am omeprazole 20 mg delayed release oral capsule (14 sources) Proton Pump Inhibitor Start: 05-06-2024 End: 10-05-2024 take 1 capsule by mouth once daily Omeprazole 20 mg capsule,delayed release(DR/EC) Discontinued 20 mg PO daily May 06, 2024 1:00am October 05, 2024 2:55pm Start: 03-06-2024 End: 04-05-2024 take 1 capsule by mouth once daily before mealtime omeprazole (PriLOSEC) [address] capsule Indications: Nausea and vomiting, unspecified vomiting type Take 1 capsule (40 mg) by mouth once daily in the morning. Take before meals. Do not crush or chew. 30 capsule 03/06/2024 04/05/2024 Active oxyCODONE hydrochloride 5 mg oral tablet (13 sources) Opioid Agonist Start: 08-06-2020 End: 05-06-2024 take 1 tablet by mouth every six hours Oxycodone 5 mg Tablet Discontinued 5 mg PO EVERY 6 HOURS 20 August 06, 2020 May 06, 2024 11:20am [...] Discontinued 150 mg PO DAILY 45 30 August 06, 2020 12:00am May 06, 2024 11:18am Start: 12-28-2019 End: 08-06-2020 take 4 tablets by mouth once daily Sertraline 25 MG tablet Discontinued 100 mg PO DAILY December 28, 2019 12:00am August 06, 2020 2:54am Check with primary doctor Problems Active Problems Problem Classification Problem Date Documented Date Episodic/Chronic Abdominal hernia (20 sources) Hiatal hernia; Translations: [Diaphragmatic hernia without obstruction or gangrene] Onset: 10-15-2024 05-06-2024 Episodic Comment on above: dx 03/2024, small her emil Abdominal pain (12 sources) Epigastric pain; Translations: [Epigastric pain] Onset: 04-03-2024 03-10-2024 Episodic Anxiety disorders (20 sources) Anxiety; Translations: [Anxiety state, unspecified] Onset: 05-22-2022 07-18-2022 Chronic Asthma (2 sources) Mild intermittent asthma with (acute) exacerbation; Translations: [Mild intermittent asthma with (acute) exacerbation] Onset: 03-20-2023 Chronic Cardiac dysrhythmias (20 sources) Multiple premature ventricular complexes; Translations: [Ventricular premature depolarization] Onset: 10-15-2024 05-06-2024 Chronic Comment on above: started with COVID i n last Delirium, dementia amnestic and other cognitive disorders (1 source) Postconcussional syndrome; Translations: [Postconcussional syndrome] Onset: 07-04-2017 Chronic Diabetes or abnormal glucose tolerance complicating ; childbirth; or the puerperium (13 sources) Abnormal glucose level; Translations: [Abnormal glucose complicating ] Onset: 11-18-2024 10-21-2024 Episodic Comment on above: planning 3 hour nl 3 hr GTT Hemorrhage during ; abruptio placenta; placenta previa (20 sources) Vaginal bleeding complicating early ; Translations: [Hemorrhage in early , unspecified] Onset: 05-29-2024 05-20-2024 Episodic Comment on above: repeat US at 28 week s Pelvic rest cervix closed and no vaginal bleeding on spec exam. US pending. d/c home repeat US at 28 week s Pelvic rest, resolved Immunizations and screening for infectious disease (2 [...] at 37 we eks Other complications of (2 sources) Obesity complicating , second trimester; Translations: [Obesity complicating , second trimester] Onset: 11-18-2024 Chronic Other complications of (1 source) Obesity complicating , unspecified trimester; Translations: [Obesity complicating , unspecified trimester] Onset: 06-30-2024 Chronic Other complications of (20 sources) High risk ; Translations: [Supervision of high risk , unspecified, unspecified trimester] 05-06-2024 Episodic Comment on above: , RICHARD 12/31/24, PC [place], [employer] PRR, , RICHARD 12/31, [facility] [place], [employer] PRR, , RICHARD 12/31 Boy, [facility] [place], [employer] PRR, , RICHARD 12/31 Boy, Sung [facility] [place], [place] Other complications of (17 sources) Abdominal pain in ; Translations: [Other specified related conditions, unspecified trimester] 06-13-2024 Episodic Other complications of (2 sources) Supervision of high risk , unspecified, second trimester; Translations: [Supervision of high risk , unspecified, second trimester] Onset: 11-18-2024 Episodic Other nervous system disorders (13 sources) Postoperative pain ; Translations: [Other acute postprocedural pain] 05-06-2024 Episodic Other nutritional; endocrine; and metabolic disorders (1 source) Localized adiposity; Translations: [Localized adiposity] Onset: 11-22-2021 Chronic Other nutritional; endocrine; and metabolic disorders [...] conditions (not mental disorders or infectious disease) (4 sources) Encounter for screening for lipoid disorders; Translations: [Cancer cervix screening status] Onset: 01-31-2021 Episodic Comment on above: Follows with Dr. Enedina alarcon; Other skin disorders (3 sources) Eruption; Translations: [Rash and other nonspecific skin eruption] Onset: 01-27-2024 01-24-2024 Episodic Other skin disorders (2 sources) Rash and other nonspecific skin eruption; Translations: [Rash and other nonspecific skin eruption] Onset: 01-24-2024 Episodic Residual codes; unclassified (2 sources) History of uterine scar from previous surgery; Translations: [History of uterine scar from previous surgery] Onset: 10-15-2024 Episodic Residual codes; unclassified (1 source) 33 weeks gestation of ; Translations: [33 weeks gestation of ] Onset: 11-18-2024 Episodic Residual codes; unclassified (1 source) 29 weeks gestation of ; Translations: [29 weeks gestation of ] Onset: 10-21-2024 Episodic Residual codes; unclassified (1 source) 19 weeks gestation of ; Translations: [19 weeks gestation of ] Onset: 10-15-2024 Episodic Screening and history of mental health and substance abuse codes (20 sources) History of clinical finding in subject; Translations: [Personal history of nicotine dependence] Onset: 10-15-2024 05-06-2024 Episodic Comment on above: Quit 01/11/24 Substance-related disorders (20 sources) Cannabis abuse; Translations: [Cannabis dependence, in remission] Onset: 10-15-2024 05-06-2024 Chronic Comment on above: last used 03/25/24, e ducation provided, informed of initial tox screen & random testing during Past or Other Problems Problem Classification Problem Date Documented Da te Episodic/Chronic Diabetes mellitus without complication (12 sources) Hyperglycemia; Translations: [Impaired fasting glucose] Onset: 05-22-2022 Resolved: 09-19-2023 06-02-2022 Episodic Nutritional deficiencies (19 sources) Iron deficiency; Translations: [...] complete anatomy. Residual codes; unclassified (1 source) 13 weeks gestation of ; Translations: [13 weeks gestation of ] Onset: 06-30-2024 Episodic Residual codes; unclassified (1 source) 11 weeks gestation of ; Translations: [11 weeks gestation of ] Onset: 06-13-2024 Episodic Residual codes; unclassified (1 source) 8 weeks gestation of ; Translations: [8 weeks gestation of ] Onset: 05-23-2024 Episodic Viral infection (2 sources) Viral infection, unspecified; Translations: [Viral infection, unspecified] Onset: 03-20-2023 Episodic Results Test Name Value Interpretation Reference Range Facility High Rigger Office Visit Reporton 11-18-2024 High Rigger Office Visit Report [facility] [address], [address] [place] [address] OFFICE VISIT Date of Service: 11/18/24 MR#: [id number] Acct: [id number] Name: RADHA BOONE Rep #: [id number] : 2000 Provider: Dr. Ana Laura briceno MD Age/Sex: 23/F Location: [facility] [place] Status: Signed Intake Vital Signs 10/10/24 10:15 11/07/24 10:57 11/18/24 13:55 Height 5 ft 7 in 5 ft 7 in 5 ft 7 in Weight: 291 lb 8 oz BMI 45.6 BP 119/85 H Intake Visit Reasons: 34 WK OB *CSECTION Practice Manager Required: No Is patient in pain?: No Feel stressed/tense/nervou s/anxious/difficulty sleeping: not at all Allergies No Known Allergies Allergy (Verified 11/18/24 13:52) Medications ???Medication ???Instructions ???Recorded ???Confirmed ???Type vits no.105-iron 30 1 ea PO DAILY 12/28/19 11/18/24 Hi story mg-folic acid 1.4 mg-dha 300 mg oral pack escitalopram oxalate 20 mg tablet 20 mg PO QDAY #90 tabs 08/12/24 0 11/18/24 Rx (Lexapro) famotidine 20 mg tablet (Pepcid) 20 mg PO BID #60 tabs 11/07/2412/04 Rx Last Menstrual Period: 03/26/24 Zika: Zika virus screening: Negative : No PFSH PFSH Medical History Seasonal allergies Depression Anxiety Surgical History Previous section Kohler teeth extracted Family History Mother Thyroid disorder, Onset Age: 38 Hypothyroid Diabetes GDM with both pregnancies Grandmother Thyroid disorder, Onset Age: 55 Maternal-thyroid nodules benign Diabetes Maternal type 2 Grandmother Diabetes Paternal type 2 Social History adopted: No household members: spouse and children housing: house number of children: 1 current occupational status: unemployed current occupation: [employer] pets and animals: Yes (Avoid litterbox) pets [...] physical activity do you participate in: none janet/advent: [employer] seatbelt use: always do you feel safe at home: Yes 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 Date Name GA/Weeks Outcome Route Bth Weight Infant Gen Labor Lgth Anesthesia Del Locatn Provider FOB 08/06/20 [place] 39 live - full term 8#1oz Female spinal [facility] Dr. Enedina Balbuena Delivery Date: 08/06/20 Last Updated by: Rona Huff meconium decels, prolonged labor HPI 34 WK OB *CSECTION Details: RADHA BOONE is a 23 year old who presents for routine OB visit. OB Visit RICHARD Calculator Estimated Delivery Date Method Current WG Current Estimate 12/31/24 LMP (Certain) 33w 6d Other Estimates 12/30/24 Ultrasound #1 34w 0d Expected Delivery Route/Plan plans repeat C/S with Specific Issue/Plans Covid status: [] Flu vaccine: [] Tdap vaccine: declined Rhogam: na LARC form signed: declined movement and labor precautions reviewed. Problem list reviewed and updated with the [...] next visit. plans R C/S 06/13/24 -???-???-???-???-???- ???-???-???-???- (more content not included)... Normal [facility] - Chemistry and C hemistry - challengeOrdered By: Ana Laura Mercado on 11-07-2024 Glucose Ql (U) Negative [facility] - UrinalysisOrder ed By: Ana Laura Mercado on 11-07-2024 Protein Ql (U) Negative [facility] High Rigger Office Visit Reporton 11-07-2024 High Rigger Office Visit Report [facility] [address], [address] [place] [address] OFFICE VISIT Date of Service: 11/07/24 MR#: [id number] Acct: [id number] Name: RADHA BOONE Rep #: [id number] : 2000 Provider: Dr. Ana Laura briceno MD Age/Sex: 23/F Location: [facility] [place] Status: Signed Intake Vital Signs 10/10/24 10:15 10/21/24 09:23 11/07/24 10:57 Height 5 ft 7 in 5 ft 7 in 5 ft 7 in Weight: 282 lb 4 oz 290 lb BMI 44.1 45.4 BP 117/81 H 123/86 H Intake Visit Reasons: 32 WK OB *CSECTION/SM Practice Manager Required: No Is patient in pain?: No Allergies No Known Allergies Allergy (Verified 11/07/24 10:56) Medications ???Medication ???Instructions ???Recorded ???Confirmed ???Type vits no.105-iron 30 1 ea PO DAILY 12/28/19 11/07/24 Hi story mg-folic acid 1.4 mg-dha 300 mg oral pack escitalopram oxalate 20 mg tablet 20 mg PO QDAY #90 tabs 08/12/24 0 11/07/24 Rx (Lexapro) famotidine 20 mg tablet (Pepcid) 20 mg PO BID #60 tabs 11/07/24 Rx Last Menstrual Period: 03/26/24 Zika: Zika virus screening: Negative : No PFSH PFSH Medical History Seasonal allergies Depression Anxiety Surgical History Previous section Kohler teeth extracted Family History Mother Thyroid disorder, Onset Age: 38 Hypothyroid Diabetes GDM with both pregnancies Grandmother Thyroid disorder, Onset Age: 55 Maternal-thyroid nodules benign Diabetes Maternal type 2 Grandmother Diabetes Paternal type 2 Social History adopted: No household members: spouse and children housing: house number of children: 1 current occupational status: unemployed current occupation: [employer] pets and animals: Yes (Avoid litterbox) pets [...] physical activity do you participate in: none janet/advent: [employer] seatbelt use: always do you feel safe at home: Yes 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 Date Name GA/Weeks Outcome Route Bth Weight Infant Gen Labor Lgth Anesthesia Del Locatn Provider FOB 08/06/20 [place] 39 live - full term 8#1oz Female spinal [facility] Dr. Enedina Balbuena Delivery Date: 08/06/20 Last Updated by: Rona Huff meconium decels, prolonged labor HPI 32 WK OB *CSECTION/SM Details: RADHA BOONE is a 23 year old who presents for routine OB visit. OB Visit RICHARD Calculator Estimated Delivery Date Method Current WG Current Estimate 12/31/24 LMP (Certain) 32w 2d Other Estimates 12/30/24 Ultrasound #1 32w 3d Expected Delivery Route/Plan plans repeat C/S with SM Specific Issue/Plans Covid status: [] Flu vaccine: [] Tdap vaccine: declined Rhogam: na LARC form signed: declined movement and labor precautions reviewed. Problem list reviewed and updated with the [...] ??-???- 11w 2d 253 lb (+3 lb) 123/ (more content not included)... Normal [facility] Gestational GTT 3HR 100gon 0 8- GEST GTT 100gm Normal [facility] Comment on above: Order Comment: Y Result Comment: FAST ING 92 Col: 11/06/24 1018 GLUCOSE TOLERANCE TEST FOR Reference Interval GESTATIONAL DIABETES Fasting <105 mg/dL 1 hour <190 mg/dl 2 hour <165 mg/dl 3 hour <145 mg/dl 1 HR GLU 121 Col: 11/06/24 1202 2 HR GLU 145 Col: 11/06/24 1300 3 HR GLU 120 Col: 11/06/24 1400 Performed By: #### L [id number] #### [facility] [address] [place], [address] Quantitative serum or plasma 3 hour gestational glucose tolerance panelOrdered By: Ana Laura Mercado on 11-06-2024 Glucose tolerance 3 hours gestational panel See comment [facility] Comment on above: FASTING 92 Col: 0811/03 1018GLUCOSE TOLERANCE TEST FOR Reference Interval GESTATIONAL DIABETES Fasting <105 mg/dL 1 hour <190 mg/dl 2 hour <165 mg/dl 3 hour <145 mg/dl 1 HR GLU 121 Col: 11/06/24 1202 2 HR GLU 145 Col: 11/06/24 1300 3 HR GLU 120 Col: 11/06/24 1400 Laboratory - Chemistry and C hemistry - challengeOrdered By: Ana Laura Mercado on 10-21-2024 Glucose Ql (U) Negative [facility] - UrinalysisOrder ed By: Ana Laura Mercado on 10-21-2024 Protein Ql (U) Negative [facility] High Rigger Office Visit Reporton 10-21-2024 High Rigger Office Visit Report [facility] [address], [address] [place] [address] OFFICE VISIT Date of Service: 10/21/24 MR#: [id number] Acct: [id number] Name: RADHA BOONE Rep #: [id number] : 2000 Provider: Dr. Ana Laura briceno MD Age/Sex: 23/F Location: [facility] [place] Status: Signed Intake Vital Signs 08/11/24 10:06 10/10/24 10:15 10/21/24 09:23 Height 5 ft 7 in 5 ft 7 in 5 ft 7 in Weight: 282 lb 4 oz BMI 44.1 BP 117/81 H Intake Visit Reasons: 30 WK OB *CSECTION Practice Manager Required: No Is patient in pain?: No Allergies No Known Allergies Allergy (Verified 10/21/24 09:24) Medications ???Medication ???Instructions ???Recorded ???Confirmed ???Type vit no.105-iron 30 1 ea PO DAILY 12/28/19 10/21/24 Hi story mg-folic acid 1.4 mg-dha 300 mg oral pack escitalopram oxalate 20 mg tablet 20 mg PO QDAY #90 tabs 08/12/24 0 10/21/24 Rx (Lexapro) Last Menstrual Period: 03/26/24 Zika: Zika virus screening: Negative : No PFSH PFSH Medical History Seasonal allergies Depression Anxiety Surgical History Previous section Kohler teeth extracted Family History Mother Thyroid disorder, Onset Age: 38 Hypothyroid Diabetes GDM with both pregnancies Grandmother Thyroid disorder, Onset Age: 55 Maternal-thyroid nodules benign Diabetes Maternal type 2 Grandmother Diabetes Paternal type 2 Social History adopted: No household members: spouse and children housing: house number of children: 1 current occupational status: unemployed current occupation: [employer] pets and animals: Yes (Avoid litterbox) pets [...] physical activity do you participate in: none janet/advent: [employer] seatbelt use: always do you feel safe at home: Yes 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 Date Name GA/Weeks Outcome Route Bth Weight Gen Labor Lgth Anesthesia Del Locatn Provider FOB 08/06/20 [place] 39 live - full term 8#1oz Female spinal [facility] Dr. Enedina Balbuena Delivery Date: 08/06/20 Last Updated by: Rona Huff meconium decels, prolonged labor HPI 30 WK OB *CSECTION Details: RADHA BOONE is a 23 year old who presents for routine OB visit. OB Visit RICHARD Calculator Estimated Delivery Date Method Current WG Current Estimate 12/31/24 LMP (Certain) 29w 6d Other Estimates 12/30/24 Ultrasound #1 30w 0d Expected Delivery Route/Plan plans repeat C/S with Specific Issue/Plans Covid status: [] Flu vaccine: [...] for RLQ pain x 4 days. no (more content not included)... Normal [facility] Absolute lymphocyte countOrd ered By: Ana Laura Mercado on 10-10-2024 Lymphocytes Auto (Unsp spec) [#/Vol] 1.88 10*3/uL 0.83-4.51 [facility] Absolute neutrophil countOrd ered By: Ana Laura Mercado on 10-10-2024 Neutrophils (Bld) [#/Vol] 6.1 10*3/uL 2.0-7.7 [facility] Automated lymphocyte count a s percentage of total leukocytesOrdered By: Ana Laura Mercado on 10-10-2024 Lymphocytes/100 WBC Auto (Unsp spec) 21.2 % 19-41 [facility] Basophil percentageOrdered B y: Ana Laura Mercado on 10-10-2024 Basophils/100 WBC (Bld) 0.5 % 0-1 [facility] CBC W/Diff, Sarahion Absolute Lymph 1.88 X10 3/uL Normal 0.83-4.51 [facility] Comment on above: Performed By: #### L 700.8000, L100.0100, L500.4050, B882-1 #### [facility] [address] [place], [address] Absolute Neut 6.1 X10 3/uL Normal 2.0-7.7 [facility] Comment on above: Performed By: #### L 700.8000, L100.0100, L500.4050, B882-1 #### [facility] [address] [place], [address] Basophils/100 WBC (Bld) 0.5 % Normal 0-1 [facility] Comment on above: Performed By: #### L 700.8000, L100.0100, L500.4050, B882-1 #### [facility] [address] [place], [address] Eosinophils/100 WBC (Bld) 3.8 % Normal 0-5 [facility] Comment on above: Performed By: #### L 700.8000, L100.0100, L500.4050, B882-1 #### [facility] [address] [place], [address] Erythrocyte distribution width (RBC) [Ratio] 13.1 % Normal 11.6-14.6 [facility] Comment on above: Performed By: #### L 700.8000, L100.0100, L500.4050, B882-1 #### [facility] [address] [place], [address] Hematocrit (Bld) [Volume fraction] 35.0 % Low 37-47 [facility] Comment on above: Performed By: #### L 700.8000, L100.0100, L500.4050, B882-1 #### [facility] [address] [place], [address] Hemoglobin (Bld) [Mass/Vol] 11.9 g/dL Low 12.0-15.0 [facility] Comment on above: Performed By: #### L 700.8000, L100.0100, L500.4050, B882-1 #### [facility] [address] [place], [address] IG% 0.600 Normal 0.0-0.9 [facility] Comment on above: Result Comment: IG% - Immature Granulocytes (promyelocytes, myelocytes and metamyelocytes) > 1% indicates that a LEFT SHIFT is Present. Performed By: #### L 700.8000, L100.0100, L500.4050, B882-1 #### [facility] [address] [place], [address] Lymphocytes/100 WBC (Bld) 21.2 % Normal 19-41 [facility] Comment on above: Performed By: #### L 700.8000, L100.0100, L500.4050, B882-1 #### [facility] [address] [place], [address] MCH (RBC) [Entitic mass] 29.2 pg Normal 27.0-32.0 [facility] Comment on above: Performed By: #### L 700.8000, L100.0100, L500.4050, B882-1 #### [facility] [address] [place], [address] MCHC (RBC) [Mass/Vol] 34.0 g/dL Normal 32-36 [facility] Comment on above: Performed By: #### L 700.8000, L100.0100, L500.4050, B882-1 #### [facility] [address] [place], [address] MCV (RBC) [Entitic vol] 86.0 fL Normal 81-99 [facility] Comment on above: Performed By: #### L 700.8000, L100.0100, L500.4050, B882-1 #### [facility] [address] [place], [address] Monocytes/100 WBC (Bld) 4.7 % Normal 0-10 [facility] Comment on above: Performed By: #### L 700.8000, L100.0100, L500.4050, B882-1 #### [facility] [address] [place], [address] Neutrophils/100 WBC (Bld) 69.2 % Normal 47-70 [facility] Comment on above: Performed By: #### L 700.8000, L100.0100, L500.4050, B882-1 #### [facility] [address] [place], [address] Nucleated RBC (Bld) [#/Vol] 0 10*3/uL Normal 0-5 [facility] Comment on above: Performed By: #### L 700.8000, L100.0100, L500.4050, B882-1 #### [facility] [address] [place], [address] Platelet mean volume (Bld) [Entitic vol] 10.0 fL Normal 6.2-12.0 [facility] Comment on above: Performed By: #### L 700.8000, L100.0100, L500.4050, B882-1 #### [facility] [address] [place], [address] Platelets (Bld) [#/Vol] 241 10*3/uL Normal 150-450 [facility] Comment on above: Performed By: #### L 700.8000, L100.0100, L500.4050, B882-1 #### [facility] [address] [place], [address] RBC (Bld) [#/Vol] 4.07 10*6/uL Low 4.2-5.4 [facility] Comment on above: Performed By: #### L 700.8000, L100.0100, L500.4050, B882-1 #### [facility] [address] [place], [address] RDW SD 40.3 fl Normal 35.1-43.9 [facility] Comment on above: Performed By: #### L 700.8000, L100.0100, L500.4050, B882-1 #### [facility] [address] [place], [address] WBC (Bld) [#/Vol] 8.9 10*3/uL Normal 4.4-11.0 [facility] Comment on above: Performed By: #### L 700.8000, L100.0100, L500.4050, B882-1 #### [facility] [address] [place], [address] Eosinophil percentageOrdered By: Ana Laura Mercado on 10-10-2024 Eosinophils/100 WBC (Bld) 3.8 % 0-5 [facility] Erythrocyte distribution wid th ratioOrdered By: Ana Laura Mercado on 10-10-2024 Erythrocyte distribution width (RBC) [Ratio] 13.1 % 11.6-14.6 [facility] Erythrocyte distribution wid th standard deviationOrdered By: Ana Laura Mercado on 10-10-2024 Erythrocyte distribution width (RBC) [Ratio] 40.3 fl 35.1-43.9 [facility] Glucose Challenge Gest 1H 50 helena 10-10-2024 GLU GEST 50g 1H 166 mg/dL High 70-140 [facility] Comment on above: Performed By: #### L 700.8000, L100.0100, L500.4050, B882-1 #### [facility] [address] [place], [place], [id number] Glucose measurement at 2 kristi rs post-dose gestational glucose tolerance testOrdered By: Ana Laura Mercado on 10-10-2024 Glucose [Mass/Vol] 166 mg/dL High 70-140 [facility] HIVon 10-10-2024 HIV Non-Reactive Normal Nonreactive [facility] Comment on above: Result Comment: Non- Reactive Reactive Repeatedly reactive samples must be confirmed according to CDC recommended confirmatory algorithms. The subresults for either HIVAG or AHIV can be used as an aid in the selection of the confirmation algorithm for reactive samples. Send out specimens with Reactive results to [facility] for confirmation. Order the HIV antibody detection and differentiation: lc#[id number] Performed By: #### L 700.8000, L100.0100, L500.4050, B882-1 #### [facility] [address] [place], [place], [address] Hematocrit Auto (Bld) [Volum e fraction]Ordered By: Ana Laura Mercado on 10-10-2024 Hematocrit (Bld) [Volume fraction] 35.0 % Low 37-47 [facility] Hemoglobin measurementOrdere d By: Ana Laura Mercado on 10-10-2024 Hemoglobin (Bld) [Mass/Vol] 11.9 g/dL Low 12.0-15.0 [facility] Immature granulocytes/100 WB C Auto (Bld)Ordered By: Ana Laura Mercado on 10-10-2024 Immature granulocytes/100 WBC (Bld) 0.600 % 0.0-0.9 [facility] Comment on above: IG% - Immature Granu locytes (promyelocytes, myelocytes and metamyelocytes) > 1% indicates that a LEFT SHIFT is Present. Laboratory - Chemistry and C hemistry - challengeOrdered By: Elissa Quintanilla on 10-10-2024 Glucose Ql (U) Negative [facility] - UrinalysisOrder ed By: Elissa Quintanilla on 10-10-2024 Protein Ql (U) Negative [facility] MCV (mean corpuscular volume ) determinationOrdered By: Ana Laura Mercado on 10-10-2024 MCV (RBC) [Entitic vol] 86.0 fL 81-99 [facility] Mean corpuscular hemoglobin (MCH) determinationOrdered By: Ana Laura Mercado on 10-10-2024 MCH (RBC) [Entitic mass] 29.2 pg 27.0-32.0 [facility] Mean corpuscular hemoglobin concentration (MCHC) determinationOrdered By: Ana Laura Mercado on 10-10-2024 MCHC (RBC) [Mass/Vol] 34.0 g/dL 32-36 [facility] Mean platelet volume determi nationOrdered By: Ana Laura Mercado on 10-10-2024 Platelet mean volume (Bld) [Entitic vol] 10.0 fL 6.2-12.0 [facility] Monocyte percentageOrdered B y: Ana Laura Mercado on 10-10-2024 Monocytes/100 WBC (Bld) 4.7 % 0-10 [facility] Neutrophil percentageOrdered By: Ana Laura Mercado on 10-10-2024 Neutrophils/100 WBC (Bld) 69.2 % 47-70 [facility] No Panel InformationOrdered By: Ana Laura Mercado on 10-10-2024 HIV (1&2) Antibody Non-Reactive Nonreactive [facility] Comment on above: Non-ReactiveReactive Repeatedly reactive samples must be confirmed according to CDC recommended confirmatory algorithms. The subresults for either HIVAG or AHIV can be used as an aid in the selection of the confirmation algorithm for reactive samples.Send out specimens with Reactive results to [facility] for confirmation.Order the HIV antibody detection and differentiation: #[id number] Nucleated red blood cell per centageOrdered By: Ana Laura Mercado on 10-10-2024 Nucleated RBC/100 WBC (Bld) [Ratio] 0 % 0-5 [facility] High Rigger Office Visit Reporton 10-10-2024 High Rigger Office Visit Report [address], [address] [place] [address] OFFICE VISIT Date of Service: 10/10/24 MR#: [id number] Acct: [id number] Name: RADHA BOONE Rep #: [id number] : 2000 Provider: Dr. Elissa Arroyo DO Age/Sex: 23/F Location: [facility] [place] Status: Signed Intake Vital Signs 08/11/24 10:06 10/05/24 14:53 10/10/24 10:14 10/10/24 10:15 Height 5 ft 7 in 5 ft 7 in 5 ft 7 in 5 ft 7 in Weight: 280 lb 2 oz BMI 43.9 BP 107/69 Intake Visit Reasons: 28WK OB/GLUCOSE *CSECTION Practice Manager Required: No Is patient in pain?: No Allergies No Known Allergies Allergy (Verified 10/10/24 10:13) Medications ???Medication ???Instructions ???Recorded ???Confirmed ???Type vit no.105-iron 30 1 ea PO DAILY 12/28/19 10/10/24 Hi story mg-folic acid 1.4 mg-dha 300 mg oral pack escitalopram oxalate 20 mg tablet 20 mg PO QDAY #90 tabs 08/12/24 0 10/10/24 Rx (Lexapro) Last Menstrual Period: 03/26/24 Zika: Zika virus screening: Negative : No PFSH PFSH Medical History Seasonal allergies Depression Anxiety Surgical History Previous section Kohler teeth extracted Family History Mother Thyroid disorder, Onset Age: 38 Hypothyroid Diabetes GDM with both pregnancies Grandmother Thyroid disorder, Onset Age: 55 Maternal-thyroid nodules benign Diabetes Maternal type 2 Grandmother Diabetes Paternal type 2 Social History adopted: No household members: spouse and children housing: house number of children: 1 current occupational status: unemployed current occupation: [employer] pets and animals: Yes (Avoid litterbox) pets [...] physical activity do you participate in: none janet/advent: [employer] seatbelt use: always do you feel safe at home: Yes 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 Date Name GA/Weeks Outcome Route Bth Weight Gen Labor Lgth Anesthesia Del Locatn Provider FOB 08/06/20 Novaleigh 39 live - full term 8#1oz Female spinal [facility] Dr. Enedina Balbuena Delivery Date: 08/06/20 Last Updated by: Rona Huff meconium decels, prolonged labor HPI 28WK OB/GLUCOSE *CSECTION Details: RADHA BOONE is a 23 year old who presents for routine OB visit. OB Visit RICHARD Calculator Estimated Delivery Date Method Current WG Current Estimate 12/31/24 LMP (Certain) 28w 2d Other Estimates 12/30/24 Ultrasound #1 28w 3d Expected Delivery Route/Plan plans repeat C/S [...] ???-???-???-???-???-? ??-???- Negative 162 -???-???-???-???-???- ???-???-???-???-???-? ??-???- (more content not included)... Normal [facility] Platelet countOrdered By: Telma Mercado on 10-10-2024 Platelets (d) [#/Vol] 241 10*3/uL 150-450 [facility] RBC Auto (d) [#/Vol]Ordere d By: Ana Laura Jess on 10-10-2024 RBC (Bld) [#/Vol] 4.07 10*6/uL Low 4.2-5.4 [facility] Syphilis Antibodieson 2024 Syphilis Abs Non-Reactive Normal Nonreactive [facility] Comment on above: Performed By: #### L 700.8000, L100.0100, L500.4050, B882-1 #### [facility] [address] [place], [place], [id number] White blood cell (WBC) count Ordered By: Ana Laura Mercado on 10-10-2024 WBC (Bld) [#/Vol] 8.9 10*3/uL 4.4-11.0 [facility] OB Limited With Biometricson 10-05-2024 OB Limited With Biometrics [facility] [address] [place], [place] [address] OB Limited With Biometrics MR#: [id number] Acct: [id number] Name: RADHA BOONE Rep #: [id number] : 2000 F 23 From: Annel Gaston PCP: JHON SCOTT DO Status: REG CLI Study: OB Limited With Biometrics Date of Exam: 10/05 Exam# [id number] Ordering Dr: Amada Black CNM PROCEDURE: OB LIMITED WITH BIOMETRICS 10/05/2024 REASON FOR EXAM: COMPLETE PREVIA, FOCUS ON PLACENTA TECHNIQUE: OB LIMITED WITH BIOMETRICS' transabdominal imaging. COMPARISON: none FINDINGS Intrauterine with position in cephalic position. cardiac activity of 143 beats per minute. Maximum vertical pocket of 3.5 cm. ITA of 10cm. Placental position is posterior and within normal limits. No placenta previa is noted on today's ultrasound. Cervical length of 4.2cm. Biometry: BPD of 7.2 cm. 75%. OFD of 9.1 cm. 91%. HC of 26.1 cm. 49%. AC of 24.5 cm. 78%. FL of 5.1 cm. 33%. estimated weight of 1223g. 67% Overall sonographic gestation age of 28 weeks and 2 days. RICHARD of 12/26/24 US/OB Limited With Biometrics IMPRESSION: Sonographic gestation age of 28 weeks and 2 days. RICHARD of 12/26/24 Biometry results as above. Reading Location: [facility] CC: BUTCH Black; JHON SCOTT DO Customer Success Associate: Signed Normal [facility] OB Triage Progress Noteon OB Triage Progress Note [facility] Medical Records Department [address] [place] [address] OB Triage Progress Note 10/05/24 1715 MR#: [id number] Acct: [id number] Name: RADHA BOONE Rep #: [id number] : 2000 23 From: Amada Black CNM PCP: JHON SCOTT DO Status:REG CLI Y DOS: Location: [place] [id number] Progress Notes Date of Service: 10/05/24 Progress Note: Patient presents for triage evaluation secondary to vaginal spotting at 27 weeks. Had one episode of small clot in toilet earlier today. no further bleeding. no ctx. +fm. FHT: Moderate variability reactive no decelerations category I tracing Reagan: none Contractions Assessment and plan: spec exam was negative for blood, closed cervix. US pending. Reactive NST, reassuring maternal and status patient discharged to home to follow-up this week in the office.. See problem list details for additional plan information. Charges/Coding Multi Select Codes Visit Charges Office Visit/Consults: 08329 OV L3 Est 20min Urinary/Genital Urinary/Genital CPT Codes: 31942-00 non-stress test Interp Assessment Plan (1) Vaginal bleeding during : COMMENT: cervix closed and no vaginal bleeding on spec exam. US pending. d/c home (2) Complete placenta previa nos or without hemorrhage, second trimester: COMMENT: repeat US at 28 weeks Pelvic rest (3) Marijuana smoker in remission: COMMENT: last used 03/25/24, education provided, informed of initial tox screen random testing during (4) History of nicotine vaping: COMMENT: Quit 01/11/24 (5) Supervision of high-risk : QUALIFIERS: Trimester: second trimester Qualified Code(s): O09.92 - Supervision of high risk , unspecified, second trimester COMMENT: PRR, , RICHARD 12/31/24 Boy, ELENA Shah, Bridger (6) : QUALIFIERS: Weeks of gestation: 19 weeks Qualified Code(s): Z3A.19 - 19 weeks gestation of COMMENT: discussed NIPT Carrier testing- Undecided NIPT-Low Risk. Rpt US 08/19 to complete anatomy. (7) Premature ventricular contractions: COMMENT: started with COVID in last (8) Obesity affecting : QUALIFIERS: Trimester: second trimester Obesity type affecting : unspecified obesity Qualified Code(s): O99.212 - Obesity complicating , second trimester COMMENT: HgbA1c NSTs at 37 weeks (9) Hiatal hernia: COMMENT: dx 03/2024, small hernia (10) Previous section: COMMENT: plans repeat C/S. RLTCS BS 12/24/24 SM. 10/05/24 1718 Date Amada Hameed Signature (if applicable): Date CC: BUTCH Black; JHON SCOTT DO Signed Normal [facility] Laboratory - Chemistry and C hemistry - challengeOrdered By: Ana Laura Mercado on 09-11-2024 Glucose Ql (U) Negative [facility] Laboratory - UrinalysisOrder ed By: Ana Laura Mercado on 09-11-2024 Protein Ql (U) Trace [facility] High Rigger Office Visit Reporton 09-11-2024 High Rigger Office Visit Report [facility], [address] [place] [address] OFFICE VISIT Date of Service: 09/11/24 MR#: [id number] Acct: [id number] Name: RAHDA BOONE Rep #: [id number] : 2000 Provider: Dr. Ana Laura briceno MD Age/Sex: 23/F Location: [facility] [place] Status: Signed with Addenda ADDENDUM by Dr. [...] trimester Comment: PRR, , RICHARD 12/31/24 Boy, ELENA Shah, Bridger (5) : Status: Acute Qualifiers: Weeks [...] allergies Depression Anxiety Surgical History Previous section Kohler teeth extracted Family History Mother Thyroid disorder, Onset Age: 38 Hypothyroid Diabetes GDM with both pregnancies Grandmother Thyroid disorder, Onset Age: 55 Maternal-thyroid nodules benign Diabetes Maternal type 2 Grandmother Diabetes Paternal type 2 Social History adopted: No household members: spouse and children housing: house number of children: 1 current occupational status: unemployed current occupation: [employer] pets and animals: Yes (Avoid litterbox) pets [...] physical activity do you participate in: none janet/advent: [employer] seatbelt use: always do you feel safe at home: Yes 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 Date Name GA/Weeks Outcome Route Bth Weight Infant Gen Labor L (more content not included)... Normal [facility] Laboratory - Chemistry and C hemistry - challengeOrdered By: Matt Ashley on 08-11-2024 Glucose Ql (U) Negative [facility] - UrinalysisOrder ed By: Matt Ashley on 08-11-2024 Protein Ql (U) Negative [facility] High Rigger Office Visit Reporton 08-11-2024 High Rigger Office Visit Report [facility] [address], [address] [place] [address] OFFICE VISIT Date of Service: 08/11/24 MR#: [id number] Acct: [id number] Name: RADHA BOONE Rep #: [id number] : 2000 Provider: WINDY fuentes Age/Sex: 23/F Location: [facility] [place] Status: Signed Intake Vital Signs 07/16/24 10:23 07/21/24 15:23 08/11/24 10:06 Height 5 ft 7 in 5 ft 7 in 5 ft 7 in Weight: 262 lb 4 oz BMI 41.1 BP 112/75 Intake Visit Reasons: 20 wk ob Practice Manager Required: No Is patient in pain?: No [...] allergies Depression Anxiety Surgical History Previous section Kohler teeth extracted Family History Mother Thyroid disorder, Onset Age: 38 Hypothyroid Diabetes GDM with both pregnancies Grandmother Thyroid disorder, Onset Age: 55 Maternal-thyroid nodules benign Diabetes Maternal type 2 Grandmother Diabetes Paternal type 2 Social History adopted: No household members: spouse and children housing: house number of children: 1 current occupational status: unemployed current occupation: [employer] pets and animals: Yes (Avoid litterbox) pets [...] physical activity do you participate in: none janet/advent: [employer] seatbelt use: always do you feel safe at home: Yes 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 Date Name GA/Weeks Outcome Route Bth Weight Infant Gen Labor Lgth Anesthesia Del Locatn Provider FOB 08/06/20 Alyssa 39 live - full term 8#1oz Female spinal [facility] Dr. Enedina Balbuena Delivery Date: 08/06/20 Last [...] 123/82 Negative (more content not included)... Normal [facility] - Chemistry and C hemistry - challengeOrdered By: Amada Black on 07-21-2024 Glucose Ql (U) Negative [facility] - UrinalysisOrder ed By: Amada Black on 07-21-2024 Protein Ql (U) Negative [facility] High Rigger Office Visit Reporton 07-21-2024 High Rigger Office Visit Report [facility] [address], [address] [place] [address] OFFICE VISIT Date of Service: 07/21/24 MR#: [id number] Acct: [id number] Name: RADHA BOONE Rep #: [id number] : 2000 Provider: BUTCH Caldwell ams Age/Sex: 23/F Location: [facility] [place] Status: Signed Intake Vital Signs 07/16/24 10:23 07/21/24 15:23 Height 5 ft 7 in 5 ft 7 in Weight: 254 lb 8 oz BMI 39.8 BP 118/80 Intake Visit Reasons: FHT check Chief Complaint: FHT Check Practice Manager Required: No Is patient in pain?: No [...] allergies Depression Anxiety Surgical History Previous section Kohler teeth extracted Family History Mother Thyroid disorder, Onset Age: 38 Hypothyroid Diabetes GDM with both pregnancies Grandmother Thyroid disorder, Onset Age: 55 Maternal-thyroid nodules benign Diabetes Maternal type 2 Grandmother Diabetes Paternal type 2 Social History adopted: No household members: spouse and children housing: house number of children: 1 current occupational status: unemployed current occupation: [employer] pets and animals: Yes (Avoid litterbox) pets [...] physical activity do you participate in: none janet/advent: [employer] seatbelt use: always do you feel safe at home: Yes 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 Date Name GA/Weeks Outcome Route Bth Weight Gen Labor Lgth Anesthesia Del Locatn Provider FOB 08/06/20 Novaleigh 38 live - full term 8#1oz Female spinal [facility] Dr. Enedina Mezawell Delivery Date: 08/06/20 Last Updated by: Rona [...] ???-???-???-???-???-? ??-? (more content not included)... Normal [facility] Laboratory - Chemistry and C hemistry - challengeOrdered By: Matt Ashley on 07-16-2024 Glucose Ql (U) Negative [facility] - UrinalysisOrder ed By: Matt Ashley on 07-16-2024 Protein Ql (U) Negative [facility] High Rigger Office Visit Reporton 07-16-2024 High Rigger Office Visit Report [facility] [address], [address] [place] [address] OFFICE VISIT Date of Service: 07/16/24 MR#: [id number] Acct: [id number] Name: RADHA BOONE Rep #: [id number] : 2000 Provider: WINDY fuentes Age/Sex: 23/F Location: [facility] [place] Status: Signed Intake Vital Signs 05/23/24 10:49 06/30/24 11:28 07/16/24 10:23 Height 5 ft 7 in 5 ft 7 in 5 ft 7 in Weight: 254 lb 4 oz BMI 39.8 BP 118/72 Intake Visit Reasons: 16 wk ob Chief Complaint: 16 Week OB Practice Manager Required: No Is patient in pain?: No [...] allergies Depression Anxiety Surgical History Previous section Kohler teeth extracted Family History Mother Thyroid disorder, Onset Age: 38 Hypothyroid Diabetes GDM with both pregnancies Grandmother Thyroid disorder, Onset Age: 55 Maternal-thyroid nodules benign Diabetes Maternal type 2 Grandmother Diabetes Paternal type 2 Social History adopted: No household members: spouse and children housing: house number of children: 1 current occupational status: unemployed current occupation: [employer] pets and animals: Yes (Avoid litterbox) pets [...] physical activity do you participate in: none janet/advent: [employer] seatbelt use: always do you feel safe at home: Yes 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 Date Name GA/Weeks Outcome Route Bth Weight Infant Gen Labor Lgth Anesthesia Del Locatn Provider FOB 08/06/20 Alyssa 38 live - full term 8#1oz Female spinal [facility] Dr. Enedina Balbuena Delivery Date: 08/06/20 Last Updated by: Rona Huff meconium decels, prolonged labor HPI 16 [...] ???-???-???-???-???-? ??-???- (more content not included)... Normal [facility] - Chemistry and C hemistry - challengeOrdered By: Amada Black on 06-30-2024 Glucose Ql (U) Negative [facility] - UrinalysisOrder ed By: Amada Black on 06-30-2024 Protein Ql (U) Negative [facility] High Rigger Office Visit Reporton 06-30-2024 High Rigger Office Visit Report [facility] [address], [address] [place] [address] OFFICE VISIT Date of Service: 06/30/24 MR#: [id number] Acct: [id number] Name: RADHA BOONE Rep #: [id number] : 2000 Provider: BUTCH Caldwell ams Age/Sex: 23/F Location: [facility] [place] Status: Signed Intake Vital Signs 06/19/24 15:21 06/30/24 11:22 06/30/24 11:28 Height 5 ft 7 in 5 ft 7 in 5 ft 7 in Weight: 253 lb BMI 39.6 BP 128/83 H Intake Visit Reasons: Heartbeat check Practice Manager Required: No Is patient in pain?: No Allergies No Known Allergies Allergy (Verified 06/30/24 11:24) Last Menstrual Period: 03/26/24 Zika: Zika virus screening: Negative : No Have you fallen in the past year?: No PFSH PFSH Medical History Seasonal allergies Depression Anxiety Surgical History Previous section Kohler teeth extracted Family History Mother Thyroid disorder, Onset Age: 38 Hypothyroid Diabetes GDM with both pregnancies Grandmother Thyroid disorder, Onset Age: 55 Maternal-thyroid nodules benign Diabetes Maternal type 2 Grandmother Diabetes Paternal type 2 Social History adopted: No household members: spouse and children housing: house number of children: 1 current occupational status: unemployed current occupation: [employer] pets and animals: Yes (Avoid litterbox) pets [...] physical activity do you participate in: none janet/advent: [employer] seatbelt use: always do you feel safe at home: Yes 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 Date Name GA/Weeks Outcome Route Bth Weight Infant Gen Labor Lgth Anesthesia Del Locatn Provider FOB 08/06/20 Novaleigh 39 live - full term 8#1oz Female spinal [facility] Dr. Enedina Balbuena Delivery Date: 08/06/20 Last [...] 128/84 -???-???-???-??? (more content not included)... Normal [facility] Absolute lymphocyte countOrd ered By: Amada Black on 06-19-2024 Lymphocytes Auto (Unsp spec) [#/Vol] 2.12 10*3/uL 0.83-4.51 [facility] Absolute neutrophil countOrd ered By: Amada Black on 06-19-2024 Neutrophils (Bld) [#/Vol] 5.4 10*3/uL 2.0-7.7 [facility] Amphetamine detection with 1 000 ng/mL as cutoffOrdered By: Amada Black on 06-19-2024 Amphetamines Screen method >1000 ng/mL Ql (U) Negative < 200 ng/mL [facility] Amphetamines Screen method > 1000 ng/mL Ql (U)Ordered By: Amada Black on 06-19-2024 Amphetamines Ql (U) Negative <1000 ng/mL [facility] Urine Barbiturates Screen Negative < 200 ng/mL [facility] Automated lymphocyte count a s percentage of total leukocytesOrdered By: Amada Black on 06-19-2024 Lymphocytes/100 WBC Auto (Unsp spec) 25.2 % 19-41 [facility] Basophil percentageOrdered B y: Amada Black on 06-19-2024 Basophils/100 WBC (Bld) 0.4 % 0-1 [facility] CBC W/Diff, Automatedon 06-10 0-2024 Absolute Lymph 2.12 X10 3/uL Normal 0.83-4.51 [facility] Comment on above: Performed By: #### B TS, L3890.6006, L3890.6301, L509.8002, L100.0100, L509.4006, L501.9985, L3890.6102 #### [facility] [address] [place], [address] Absolute Neut 5.4 X10 3/uL Normal 2.0-7.7 [facility] Comment on above: Performed By: #### B TS, L3890.6006, L3890.6301, L509.8002, L100.0100, L509.4006, L501.9985, L3890.6102 #### [facility] [address] [place], [address] Basophils/100 WBC (Bld) 0.4 % Normal 0-1 [facility] Comment on above: Performed By: #### B TS, L3890.6006, L3890.6301, L509.8002, L100.0100, L509.4006, L501.9985, L3890.6102 #### [facility] [address] [place], [address] Eosinophils/100 WBC (Bld) 1.5 % Normal 0-5 [facility] Comment on above: Performed By: #### B TS, L3890.6006, L3890.6301, L509.8002, L100.0100, L509.4006, L501.9985, L3890.6102 #### [facility] [address] [place], [address] Erythrocyte distribution width (RBC) [Ratio] 12.9 % Normal 11.6-14.6 [facility] Comment on above: Performed By: #### B TS, L3890.6006, L3890.6301, L509.8002, L100.0100, L509.4006, L501.9985, L3890.6102 #### [facility] [address] [place], [address] Hematocrit (Bld) [Volume fraction] 39.2 % Normal 37-47 [facility] Comment on above: Performed By: #### B TS, L3890.6006, L3890.6301, L509.8002, L100.0100, L509.4006, L501.9985, L3890.6102 #### [facility] [address] [place], [address] Hemoglobin (Bld) [Mass/Vol] 13.4 g/dL Normal 12.0-15.0 [facility] Comment on above: Performed By: #### B TS, L3890.6006, L3890.6301, L509.8002, L100.0100, L509.4006, L501.9985, L3890.6102 #### [facility] [address] [place], [address] IG% 0.400 Normal 0.0-0.9 [facility] Comment on above: Result Comment: IG% - Immature Granulocytes (promyelocytes, myelocytes and metamyelocytes) > 1% indicates that a LEFT SHIFT is Present. Performed By: #### B TS, L3890.6006, L3890.6301, L509.8002, L100.0100, L509.4006, L501.9985, L3890.6102 #### [facility] [address] [place], [address] Lymphocytes/100 WBC (Bld) 25.2 % Normal 19-41 [facility] Comment on above: Performed By: #### B TS, L3890.6006, L3890.6301, L509.8002, L100.0100, L509.4006, L501.9985, L3890.6102 #### [facility] [address] [place], [address] MCH (RBC) [Entitic mass] 29.1 pg Normal 27.0-32.0 [facility] Comment on above: Performed By: #### B TS, L3890.6006, L3890.6301, L509.8002, L100.0100, L509.4006, L501.9985, L3890.6102 #### [facility] [address] [place], [address] MCHC (RBC) [Mass/Vol] 34.2 g/dL Normal 32-36 [facility] Comment on above: Performed By: #### B TS, L3890.6006, L3890.6301, L509.8002, L100.0100, L509.4006, L501.9985, L3890.6102 #### [facility] [address] [place] [place], [address] MCV (RBC) [Entitic vol] 85.0 fL Normal 81-99 [facility] Comment on above: Performed By: #### B TS, L3890.6006, L3890.6301, L509.8002, L100.0100, L509.4006, L501.9985, L3890.6102 #### [facility] [address] [place], [address] Monocytes/100 WBC (Bld) 7.8 % Normal 0-10 [facility] Comment on above: Performed By: #### B TS, L3890.6006, L3890.6301, L509.8002, L100.0100, L509.4006, L501.9985, L3890.6102 #### [facility] [address] [place], [address] Neutrophils/100 WBC (Bld) 64.7 % Normal 47-70 [facility] Comment on above: Performed By: #### B TS, L3890.6006, L3890.6301, L509.8002, L100.0100, L509.4006, L501.9985, L3890.6102 #### [facility] [address] [place], [address] Nucleated RBC (Bld) [#/Vol] 0 10*3/uL Normal 0-5 [facility] Comment on above: Performed By: #### B TS, L3890.6006, L3890.6301, L509.8002, L100.0100, L509.4006, L501.9985, L3890.6102 #### [facility] [address] [place], [address] Platelet mean volume (Bld) [Entitic vol] 9.4 fL Normal 6.2-12.0 [facility] Comment on above: Performed By: #### B TS, L3890.6006, L3890.6301, L509.8002, L100.0100, L509.4006, L501.9985, L3890.6102 #### [facility] [address] [place], [address] Platelets (Bld) [#/Vol] 266 10*3/uL Normal 150-450 [facility] Comment on above: Performed By: #### B TS, L3890.6006, L3890.6301, L509.8002, L100.0100, L509.4006, L501.9985, L3890.6102 #### [facility] [address] [place], [address] RBC (Bld) [#/Vol] 4.61 10*6/uL Normal 4.2-5.4 [facility] Comment on above: Performed By: #### B TS, L3890.6006, L3890.6301, L509.8002, L100.0100, L509.4006, L501.9985, L3890.6102 #### [facility] [address] [place], [address] RDW SD 39.6 fl Normal 35.1-43.9 [facility] Comment on above: Performed By: #### B TS, L3890.6006, L3890.6301, L509.8002, L100.0100, L509.4006, L501.9985, L3890.6102 #### [facility] [address] [place], [address] WBC (Bld) [#/Vol] 8.4 10*3/uL Normal 4.4-11.0 [facility] Comment on above: Performed By: #### B TS, L3890.6006, L3890.6301, L509.8002, L100.0100, L509.4006, L501.9985, L3890.6102 #### [facility] [address] [place], [address] Eosinophil percentageOrdered By: Amada Black on 06-19-2024 Eosinophils/100 WBC (Bld) 1.5 % 0-5 [facility] Erythrocyte distribution wid th (RBC) [Ratio]Ordered By: Amada Black on 06-19-2024 Erythrocyte distribution width (RBC) [Entitic vol] 39.6 fL 35.1-43.9 [facility] Erythrocyte distribution wid th ratioOrdered By: Amada Black on 06-19-2024 Erythrocyte distribution width (RBC) [Ratio] 12.9 % 11.6-14.6 [facility] Erythrocyte distribution wid th standard deviationOrdered By: Amada Black on 06-19-2024 Erythrocyte distribution width (RBC) [Ratio] 39.6 fl 35.1-43.9 [facility] HBV surface Ag Ql (S)Ordered By: Amada Black on 06-19-2024 Hepatitis B Surface Antigen Non-Reactive Nonreactive [facility] Comment on above: Reactive: Presumptiv e evidence of HBV. Repeatedly reactive samples must be confirmed using a neutralization test ([facility] HBsAg Confirmatory Test)Non-Reactive: HBsAg not detected; does not exclude the possibility of exposure to HBV HIVon 06-19-2024 HIV Non-Reactive Normal Nonreactive [facility] Comment on above: Result Comment: Non- Reactive Reactive Repeatedly reactive samples must be confirmed according to CDC recommended confirmatory algorithms. The subresults for either HIVAG or AHIV can be used as an aid in the selection of the confirmation algorithm for reactive samples. Send out specimens with Reactive results to [facility] for confirmation. Order the HIV antibody detection and differentiation: lc#[id number] Performed By: #### L 700.8000, L100.0100, L500.4050, B882-1 #### [facility] [address] [facility] [address] [facility] [place], [place], [id number] Hematocrit Auto (Bld) [Volum e fraction]Ordered By: Amada Black on 06-19-2024 Hematocrit (Bld) [Volume fraction] 39.2 % 37-47 [facility] Hemoglobin A1con 06-19-2024 HbA1c (Bld) [Mass fraction] 5.0 % Low <=5.6 [facility] Comment on above: Performed By: #### L 700.8000, L100.0100, L500.4050, B882-1 #### [facility] [address] [place], [place], [address] Hemoglobin A1c percentageOrd ered By: Amada Black on 06-19-2024 HbA1c (Bld) [Mass fraction] 5.0 % Low >5.7 [facility] Hemoglobin measurementOrdere d By: Amada Black on 06-19-2024 Hemoglobin (Bld) [Mass/Vol] 13.4 g/dL 12.0-15.0 [facility] Hepatitis C Antibodyon 06-19 Hepatitis C Ab Non-Reactive Normal Nonreactive [facility] Comment on above: Result Comment: Reac tive: Presumptive evidence of antibodies to HCV. Follow CDC recommendations for supplemental testing. Non-Reactive: Antibodies to HCV were not detected; does not exclude the possibility of exposure to HCV Reactive Results are presumptive evidence of antibodies to HCV. Follow CDC recommendations for supplemental testing. Order confirmation testing: HCV Quant by PCR testing - HCVPCR lc#[id number] Non Reactive: < 0.8 Equivocal: >/= 0.8 to < 1.0 Reactive: >/= 1.0 The CDC requires that a reactive/equivocal HCV antibody result be sent out for confirmation. HCV Quant by PCR testing. Performed By: #### L 700.8000, L100.0100, L500.4050, B882-1 #### [facility] [address] [place], [place], [address] Hepatitis C antibodyOrdered By: Amada Black on 06-19-2024 Hepatitis C Antibody Non-Reactive Nonreactive [facility] Comment on above: Reactive: Presumptiv e evidence of antibodies to HCV. Follow CDC recommendations for supplemental testing.Non-Reactive: Antibodies to HCV were not detected; does not exclude the possibility of exposure to HCVReactive Results are presumptive evidence of antibodies to HCV. Follow CDC recommendations for supplemental testing.Order confirmation testing: HCV Quant by PCR testing - HCVPCR lc#[id number] Non Reactive: < 0.8 Equivocal: >/= 0.8 to < 1.0 Reactive: >/= 1.0The CDC requires that a reactive/equivocal HCV antibody result be sent out for confirmation. HCV Quant by PCR testing. Immature granulocytes/100 WB C Auto (Bld)Ordered By: Amada Black on 06-19-2024 Immature granulocytes/100 WBC (Bld) 0.400 % 0.0-0.9 [facility] Comment on above: IG% - Immature Granu locytes (promyelocytes, myelocytes and metamyelocytes) > 1% indicates that a LEFT SHIFT is Present. L3890.6102on 06-19-2024 HEP B Surf Ag Non-Reactive Normal Nonreactive [facility] Comment on above: Result Comment: Reac tive: Presumptive evidence of HBV. Repeatedly reactive samples must be confirmed using a neutralization test ([employer] HBsAg Confirmatory Test) Non-Reactive: HBsAg not detected; does not exclude the possibility of exposure to HBV Performed By: #### L 700.8000, L100.0100, L500.4050, B882-1 #### [facility] [address] [place], [place], [address] L509.4006on 06-19-2024 Rubella IgG REAC Normal Nonreactive [facility] Comment on above: Result Comment: Anti body Result: Interpretation Non-Reactive: Non-Immune Reactive: Immune The following results were obtained with the [employer] Rubella IgG assay. Results from assays of other manufacturers cannot be used interchangeably. Performed By: #### L 700.8000, L100.0100, L500.4050, B882-1 #### [facility] [address] [place], [place], [address] Laboratory - Microbiology an d Antimicrobial susceptibilityOrdered By: Amada Black on 06-19-2024 HBV surface Ag Ql (S) Non-Reactive Nonreactive [facility] Comment on above: Reactive: Presumptiv e evidence of HBV. Repeatedly reactive samples must be confirmed using a neutralization test ([employer] HBsAg Confirmatory Test)Non-Reactive: HBsAg not detected; does not exclude the possibility of exposure to HBV Lymphocytes Auto (Unsp spec) [#/Vol]Ordered By: Amada Black on 06-19-2024 Lymphocytes (Bld) [#/Vol] 2.12 10*3/uL 0.83-4.51 [facility] Lymphocytes/100 WBC Auto (Un sp spec)Ordered By: Amada Black on 06-19-2024 Lymphocytes/100 WBC (Bld) 25.2 % 19-41 [facility] MCV (mean corpuscular volume ) determinationOrdered By: Amada Black on 06-19-2024 MCV (RBC) [Entitic vol] 85.0 fL 81-99 [facility] Mean corpuscular hemoglobin (MCH) determinationOrdered By: Amada Black on 06-19-2024 MCH (RBC) [Entitic mass] 29.1 pg 27.0-32.0 [facility] Mean corpuscular hemoglobin concentration (MCHC) determinationOrdered By: Amada Black on 06-19-2024 MCHC (RBC) [Mass/Vol] 34.2 g/dL 32-36 [facility] Mean platelet volume determi nationOrdered By: Amada Black on 06-19-2024 Platelet mean volume (Bld) [Entitic vol] 9.4 fL 6.2-12.0 [facility] Methadone, urineOrdered By: Amada Black on 06-19-2024 Urine Methadone Screen Negative < 300 ng/mL [facility] Miscellaneous procedureOrder ed By: Elissa Quintanilla on 06-19-2024 Miscellaneous Test Comment SEE SCANNED REPORT [facility] Monocyte percentageOrdered B y: Amada Black on 06-19-2024 Monocytes/100 WBC (Bld) 7.8 % 0-10 [facility] NATERAon 06-19-2024 NATURA SEE SCANNED REPORT Normal [facility] Comment on above: Performed By: #### L 700.8000, L100.0100, L500.4050, B882-1 #### [facility] [address] [place], [place], [id number] Neutrophil percentageOrdered By: Amada Black on 06-19-2024 Neutrophils/100 WBC (Bld) 64.7 % 47-70 [facility] No Panel InformationOrdered By: Amada Black on 06-19-2024 Urine Buprenorphine Qualitative Negative < 200 ng/mL [facility] Urine Oxycodone Screen Negative < 100 ng/mL [facility] HIV (1&2) Antibody Non-Reactive Nonreactive [facility] Comment on above: Non-ReactiveReactive Repeatedly reactive samples must be confirmed according to CDC recommended confirmatory algorithms. The subresults for either HIVAG or AHIV can be used as an aid in the selection of the confirmation algorithm for reactive samples.Send out specimens with Reactive results to [facility] for confirmation.Order the HIV antibody detection and differentiation: #[id number] Nucleated red blood cell per centageOrdered By: Amada Black on 06-19-2024 Nucleated RBC/100 WBC (Bld) [Ratio] 0 % 0-5 [facility] High Rigger Office Visit Reporton 06-19-2024 High Rigger Office Visit Report [facility], [address] [place] [address] OFFICE VISIT Date of Service: 06/19/24 MR#: [id number] Acct: [id number] Name: RADHA BOONE Rep #: [id number] : 2000 Provider: Dr. Elissa Arroyo DO Age/Sex: 23/F Location: [facility] [place] Status: Signed Intake Vital Signs 08/05/20 00:10 06/13/24 16:24 06/19/24 15:21 Height 5 ft 7 in 5 ft 7 in 5 ft 7 in Weight: 255 lb 4 oz BMI 39.9 BP 128/84 H Intake Visit Reasons: 12 wk OB Practice Manager Required: No Is patient in pain?: No [...] allergies Depression Anxiety Surgical History Previous section Kohler teeth extracted Family History Mother Thyroid disorder, Onset Age: 38 Hypothyroid Diabetes GDM with both pregnancies Grandmother Thyroid disorder, Onset Age: 55 Maternal-thyroid nodules benign Diabetes Maternal type 2 Grandmother Diabetes Paternal type 2 Social History adopted: No household members: spouse and children housing: house number of children: 1 current occupational status: unemployed current occupation: [employer] pets and animals: Yes (Avoid litterbox) pets [...] physical activity do you participate in: none janet/advent: [employer] seatbelt use: always do you feel safe at home: Yes 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 Date Name GA/Weeks Outcome Route Bth Weight Gen Labor Lgth Anesthesia Del Locatn Provider FOB 08/06/20 Novaleigh 39 live - full term 8#1oz Female spinal [facility] Dr. Enedina Balbuena Delivery Date: 08/06/20 Last [...] (+3 l (more content not included)... Normal [facility] Platelet countOrdered By: Thien Black on 06-19-2024 Platelets (Bld) [#/Vol] 266 10*3/uL 150-450 [facility] Quantitative urine opiates m easurementOrdered By: Amada Black on 06-19-2024 Opiates Ql (U) Negative < 300 ng/mL [facility] RBC Auto (Bld) [#/Vol]Ordere d By: Amada Black on 04-10-2025 RBC (Bld) [#/Vol] 4.61 10*6/uL 4.2-5.4 [facility] Rubella immune status determ ination by IgG antibody assayOrdered By: Amada Black on 06-19-2024 Rubella IgG Antibody REAC Nonreactive [facility] Comment on above: Antibody Result: Int erpretationNon-Reactive: Non-ImmuneReactive: ImmuneThe following results were obtained with the [employer] Rubella IgG assay. Results from assays of other manufacturers cannot be used interchangeably. Screening urine fentanyl rodrigue surementOrdered By: Amada Black on 06-19-2024 fentaNYL Screen Ql (U) Negative [facility] Syphilis Antibodieson 2024 Syphilis Abs Non-Reactive Normal Nonreactive [facility] Comment on above: Performed By: #### L 700.8000, L100.0100, L500.4050, B882-1 #### [facility] [address] [place], [place], [id number] T. pallidum abOrdered By: Thien Black on 06-19-2024 Syphilis Total Antibody Non-Reactive Nonreactiv e [facility] Type AND Screenon 06-19-2024 ABO and Rh group Nom (Bld) Blood group B Rh(D) positive Normal [facility] Comment on above: Order Comment: PN Performed By: #### B TS, L3890.6006, L3890.6301, L509.8002, L100.0100, L509.4006, L501.9985, L3890.6102 #### [facility] [address] [place], [address] Urine Drug Screen (VISTA)on 06-19-2024 AMPHETAMINES Negative Normal <1000 ng/mL [facility] Comment on above: Order Comment: UNK Performed By: #### L 505.5000 #### [facility] [address] [place], [address] BARBITIURATES Negative Normal < 200 ng/mL [facility] Comment on above: Order Comment: UNK Performed By: #### L 505.5000 #### [facility] [address] [facility] [address] BENZODIAZIPINE Negative Normal < 200 ng/mL [facility] Comment on above: Order Comment: UNK Performed By: #### L 505.5000 #### [facility] [address] [facility] [address] BUP Ur Drug Scr Negative Normal < 200 ng/mL [facility] Comment on above: Order Comment: UNK Performed By: #### L 505.5000 #### [facility] [address] [facility] [address] COCAINE Negative Normal < 300 ng/mL [facility] Comment on above: Order Comment: UNK Performed By: #### L 505.5000 #### [facility] [address] [place] [address] Fentanyl Negative Normal [facility] Comment on above: Order Comment: UNK Performed By: #### L 505.5000 #### [facility] [address] [place] [address] METHADONE Negative Normal < 300 ng/mL [facility] Comment on above: Order Comment: UNK Performed By: #### L 505.5000 #### [facility] [address] [place] [phone] OPIATES Negative Normal < 300 ng/mL [facility] Comment on above: Order Comment: UNK Performed By: #### L 505.5000 #### [facility] [address] [place] [phone] OXYCODONE Negative Normal < 100 ng/mL [facility] Comment on above: Order Comment: UNK Performed By: #### L 505.5000 #### [facility] [address] [place] [phone] PCP Negative Normal < 25 ng/mL [facility] Comment on above: Order Comment: UNK Performed By: #### L 505.5000 #### [facility] [address] [place], [place], [id number] THC Positive Normal < 50 ng/mL [facility] Comment on above: Order Comment: UNK Result Comment: If c onfirmation testing is needed, a separate order will be required to send out testing to the reference laboratory. Performed By: #### L 505.5000 #### [facility] [address] [place], [place], [id number] Urine benzodiazepine levelOr dered By: Amada Black on 06-19-2024 Benzodiazepines Ql (U) Negative < 200 ng/mL [facility] Urine cocaine levelOrdered B y: Amada Black on 06-19-2024 Cocaine Ql (U) Negative < 300 ng/mL [facility] Urine gmgpn-0-jderxppszcpykw abinol (THC) measurementOrdered By: Amada Black on 06-19-2024 Cannabinoids Screen Ql (U) Positive < 50 ng/mL [facility] Comment on above: If confirmation test ing is needed, a separate order will be required to send out testing to the reference laboratory. Urine phencyclidine (PCP) de tectionOrdered By: Amada Black on 06-19-2024 Phencyclidine Ql (U) Negative < 25 ng/mL [facility] White blood cell (WBC) count Ordered By: Amada Black on 06-19-2024 WBC (Bld) [#/Vol] 8.4 10*3/uL 4.4-11.0 [facility] fentaNYL Screen Ql (U)Ordere d By: Amada Black on 06-19-2024 Urine Fentanyl Screen Negative [facility] Absolute lymphocyte countOrd ered By: Rubens Escudero on 06-13-2024 Lymphocytes Auto (Unsp spec) [#/Vol] 2.25 10*3/uL 0.83-4.51 [facility] Absolute neutrophil countOrd ered By: Rubens Escudero on 06-13-2024 Neutrophils (Bld) [#/Vol] 5.7 10*3/uL 2.0-7.7 [facility] Amorphous sediment detection in urine sediment by light microscopyOrdered By: Rubens Escudero on 06-13-2024 Amorphous sediment LM Ql (Urine sed) 1+ URATE [facility] Anion gap in Serum or Plasma Ordered By: Rubens Escudero on 06-13-2024 Anion gap [Moles/Vol] 12 mmol/L 5-15 [facility] Automated lymphocyte count a s percentage of total leukocytesOrdered By: Rubens Escudero on 06-13-2024 Lymphocytes/100 WBC Auto (Unsp spec) 25.9 % 19-41 [facility] BUN/creatinine ratioOrdered By: Rubens Escudero on 06-13-2024 Urea nitrogen/Creatinine [Mass ratio] 10.0 mg/mg 10- [facility] Basic Metabolic Profile (BMP )on 06-13-2024 BUN/CRE 10.0 RATIO Normal - [facility] Comment on above: Performed By: #### L 700.8000, L100.0100, L500.4050, B882-1 #### [facility] [address] [place], [address] Calcium [Mass/Vol] 9.2 mg/dL Normal 7.6-11.0 [facility] Comment on above: Performed By: #### L 700.8000, L100.0100, L500.4050, B882-1 #### [facility] [address] [place], [address] Chloride [Moles/Vol] 104 mmol/L Normal 98-108 [facility] Comment on above: Performed By: #### L 700.8000, L100.0100, L500.4050, B882-1 #### [facility] [address] [place], [address] CO2 [Moles/Vol] 21.8 mmol/L Normal 21.0-32.0 [facility] Comment on above: Performed By: #### L 700.8000, L100.0100, L500.4050, B882-1 #### [facility] [address] [place], [address] Creatinine [Mass/Vol] 0.58 mg/dL Low 0.70-1.20 [facility] Comment on above: Performed By: #### L 700.8000, L100.0100, L500.4050, B882-1 #### [facility] [address] [place], [address] ECRCL 194.36 ml/min Normal 50-250 [facility] Comment on above: Performed By: #### L 700.8000, L100.0100, L500.4050, B882-1 #### [facility] [address] [place], [address] GAP 12 Normal 5-15 [facility] Comment on above: Performed By: #### L 700.8000, L100.0100, L500.4050, B882-1 #### [facility] [address] [place], [address] GFR/1.73 sq M.predicted among non-blacks MDRD (S/P/Bld) [Vol rate/Area] 130 mL/min/{1.73_m2} Normal >60 [facility] Comment on above: Result Comment: mL/m in/1.73m2 CKD-EPI Creatinine Equation (2020) Performed By: #### L 700.8000, L100.0100, L500.4050, B882-1 #### [facility] [address] [place], [address] Glucose [Mass/Vol] 96 mg/dL Normal 70-99 [facility] Comment on above: Performed By: #### L 700.8000, L100.0100, L500.4050, B882-1 #### [facility] [address] [place], [address] Potassium [Moles/Vol] 3.9 mmol/L Normal 3.3-5.1 [facility] Comment on above: Performed By: #### L 700.8000, L100.0100, L500.4050, B882-1 #### [facility] [address] [place], [address] Sodium [Moles/Vol] 137 mmol/L Normal 133-145 [facility] Comment on above: Performed By: #### L 700.8000, L100.0100, L500.4050, B882-1 #### [facility] [address] [place], [address] Urea nitrogen [Mass/Vol] 6 mg/dL Normal 4-19 [facility] Comment on above: Performed By: #### L 700.8000, L100.0100, L500.4050, B882-1 #### [facility] [address] [place], [address] Basophil percentageOrdered B y: Rubens Escudero on 06-13-2024 Basophils/100 WBC (Bld) 0.3 % 0-1 [facility] Bilirubin Test strip Ql (U)O rdered By: Rubens Escudero on 06-13-2024 Bilirubin Ql (U) Negative Negative [facility] CBC W/Diff, Automatedon 04- Absolute Lymph 2.25 X10 3/uL Normal 0.83-4.51 [facility] Comment on above: Performed By: #### L 700.8000, L100.0100, L500.4050, B882-1 #### [facility] [address] [place], [address] Absolute Neut 5.7 X10 3/uL Normal 2.0-7.7 [facility] Comment on above: Performed By: #### L 700.8000, L100.0100, L500.4050, B882-1 #### [facility] [address] [place], [address] Basophils/100 WBC (Bld) 0.3 % Normal 0-1 [facility] Comment on above: Performed By: #### L 700.8000, L100.0100, L500.4050, B882-1 #### [facility] [address] [place], [address] Eosinophils/100 WBC (Bld) 2.0 % Normal 0-5 [facility] Comment on above: Performed By: #### L 700.8000, L100.0100, L500.4050, B882-1 #### [facility] [address] [place], [address] Erythrocyte distribution width (RBC) [Ratio] 13.1 % Normal 11.6-14.6 [facility] Comment on above: Performed By: #### L 700.8000, L100.0100, L500.4050, B882-1 #### [facility] [address] [place], [address] Hematocrit (Bld) [Volume fraction] 37.8 % Normal 37-47 [facility] Comment on above: Performed By: #### L 700.8000, L100.0100, L500.4050, B882-1 #### [facility] [address] [place], [address] Hemoglobin (Bld) [Mass/Vol] 13.3 g/dL Normal 12.0-15.0 [facility] Comment on above: Performed By: #### L 700.8000, L100.0100, L500.4050, B882-1 #### [facility] [address] [place], [address] IG% 0.200 Normal 0.0-0.9 [facility] Comment on above: Result Comment: IG% - Immature Granulocytes (promyelocytes, myelocytes and metamyelocytes) > 1% indicates that a LEFT SHIFT is Present. Performed By: #### L 700.8000, L100.0100, L500.4050, B882-1 #### [facility] [address] [place], [address] Lymphocytes/100 WBC (Bld) 25.9 % Normal 19-41 [facility] Comment on above: Performed By: #### L 700.8000, L100.0100, L500.4050, B882-1 #### [facility] [address] [place], [address] MCH (RBC) [Entitic mass] 29.5 pg Normal 27.0-32.0 [facility] Comment on above: Performed By: #### L 700.8000, L100.0100, L500.4050, B882-1 #### [facility] [address] [place], [address] MCHC (RBC) [Mass/Vol] 35.2 g/dL Normal 32-36 [facility] Comment on above: Performed By: #### L 700.8000, L100.0100, L500.4050, B882-1 #### [facility] [address] [place], [address] MCV (RBC) [Entitic vol] 83.8 fL Normal 81-99 [facility] Comment on above: Performed By: #### L 700.8000, L100.0100, L500.4050, B882-1 #### [facility] [address] [place], [address] Monocytes/100 WBC (Bld) 5.4 % Normal 0-10 [facility] Comment on above: Performed By: #### L 700.8000, L100.0100, L500.4050, B882-1 #### [facility] [address] [place], [address] Neutrophils/100 WBC (Bld) 66.2 % Normal 47-70 [facility] Comment on above: Performed By: #### L 700.8000, L100.0100, L500.4050, B882-1 #### [facility] [address] [place], [address] Nucleated RBC (Bld) [#/Vol] 0 10*3/uL Normal 0-5 [facility] Comment on above: Performed By: #### L 700.8000, L100.0100, L500.4050, B882-1 #### [facility] [address] [place], [address] Platelet mean volume (Bld) [Entitic vol] 9.2 fL Normal 6.2-12.0 [facility] Comment on above: Performed By: #### L 700.8000, L100.0100, L500.4050, B882-1 #### [facility] [address] [place], [address] Platelets (Bld) [#/Vol] 257 10*3/uL Normal 150-450 [facility] Comment on above: Performed By: #### L 700.8000, L100.0100, L500.4050, B882-1 #### [facility] [address] [place], [address] RBC (Bld) [#/Vol] 4.51 10*6/uL Normal 4.2-5.4 [facility] Comment on above: Performed By: #### L 700.8000, L100.0100, L500.4050, B882-1 #### [facility] [address] [place], [address] RDW SD 39.9 fl Normal 35.1-43.9 [facility] Comment on above: Performed By: #### L 700.8000, L100.0100, L500.4050, B882-1 #### [facility] [address] [place], [address] WBC (Bld) [#/Vol] 8.7 10*3/uL Normal 4.4-11.0 [facility] Comment on above: Performed By: #### L 700.8000, L100.0100, L500.4050, B882-1 #### [facility] [address] [place], [address] Carbon dioxide, total [Moles /volume] in Central venous bloodOrdered By: Rubens Escudero on 06-13-2024 CO2 [Moles/Vol] 21.8 mmol/L 21.0-32.0 [facility] Chloride assayOrdered By: Arturo Escudero on 06-13-2024 Chloride [Moles/Vol] 104 mmol/L 98-108 [facility] Emergency Department Summary on 06-13-2024 Emergency Department Summary [facility] Medical Records Department [address] [place] [address] Emergency Department Summary 06/13/24 MR#: [id number] Acct: [id number] Name: RADHA BOONE Rep #: [id number] : 2000 23 From: Rubens Escudero MD [...] changes in that no dysuria or hematuria. 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 Normal [facility] Eosinophil percentageOrdered By: Rubens Escudero on 06-13-2024 Eosinophils/100 WBC (Bld) 2.0 % 0-5 [facility] Epithelial cells.squamous LM Ql (Urine sed)Ordered By: Rubens Escudero on 06-13-2024 Epithelial cells.squamous LM.HPF (Urine sed) [#/Area] 0 /[HPF] 5-10 [facility] Erythrocyte distribution wid th (RBC) [Ratio]Ordered By: Rubens Escudero on 06-13-2024 Erythrocyte distribution width (RBC) [Entitic vol] 39.9 fL 35.1-43.9 [facility] Erythrocyte distribution wid th ratioOrdered By: Rubens Escudero on 06-13-2024 Erythrocyte distribution width (RBC) [Ratio] 13.1 % 11.6-14.6 [facility] Erythrocyte distribution wid th standard deviationOrdered By: Rubens Escudero on 06-13-2024 Erythrocyte distribution width (RBC) [Ratio] 39.9 fl 35.1-43.9 [facility] Estimation of creatinine ana aranceOrdered By: Rubens Escudero on 06-13-2024 Estimated Creatinine Clearance Calc 194.36 ml/min 50-250 [facility] GFR/1.73 sq M.predicted ab g non-blacks MDRD (S/P/Bld) [Vol rate/Area]Ordered By: Rubens Escudero on 06-13-2024 Estimated GFR (MDRD) Non-Af Amer 130 >60 [facility] Comment on above: mL/min/1.73m2 CKD-EP I Creatinine Equation (2020) Glomerular filtration rate ( GFR) estimation/1.73 sq m using serum, plasma, or whole bOrdered By: Rubens Escudero on 06-13-2024 GFR/1.73 sq M.predicted among non-blacks MDRD (S/P/Bld) [Vol rate/Area] 130 mL/min/{1.73_m2} >60 [facility] Comment on above: mL/min/1.73m2 CKD-EP I Creatinine Equation (2020) Glucose Ql (U)Ordered By: Arturo Escudero on 06-13-2024 Urine Glucose (UA) Normal mg/dl Normal [facility] Hematocrit Auto (Bld) [Volum e fraction]Ordered By: Rubens Escudero on 06-13-2024 Hematocrit (Bld) [Volume fraction] 37.8 % 37-47 [facility] Hemoglobin measurementOrdere d By: Rubens Escudero on 06-13-2024 Hemoglobin (Bld) [Mass/Vol] 13.3 g/dL 12.0-15.0 [facility] Immature granulocytes/100 WB C Auto (Bld)Ordered By: Rubens Escudero on 06-13-2024 Immature granulocytes/100 WBC (Bld) 0.200 % 0.0-0.9 [facility] Comment on above: IG% - Immature Granu locytes (promyelocytes, myelocytes and metamyelocytes) > 1% indicates that a LEFT SHIFT is Present. Ketones Test strip Ql (U)Ord ered By: Rubens Escudero on 06-13-2024 Ketones Ql (U) Negative Negative [facility] Kidney and Bladderon 025 Kidney and Bladder [facility] [address] [place] [id number] Kidney and Bladder MR#: [id number] Acct: [id number] Name: RADHA BOONE Rep #: [id number] : 2000 F 23 From: Hai Spear MD PCP: JHON SCOTT DO Status: REG ER Study: Kidney and Bladder Date of Exam: 06/13/24 Exam# [id number] Ordering Dr: Rubens Escudero MD PROCEDURE: KIDNEY [...] The study appears within limits. Reading Location: [facility] CC: Dr. Rubens Escudero MD; JHON SCOTT DO Customer Success Associate: Signed Normal [facility] - Chemistry and C hemistry - challengeOrdered By: Amada Black on 06-13-2024 Glucose Ql (U) Negative [facility] - UrinalysisOrder ed By: Amada Black on 06-13-2024 Protein Ql (U) Negative [facility] Lymphocytes Auto (Unsp spec) [#/Vol]Ordered By: Rubens Escudero on 06-13-2024 Lymphocytes (Bld) [#/Vol] 2.25 10*3/uL 0.83-4.51 [facility] Lymphocytes/100 WBC Auto (Un sp spec)Ordered By: Rubens Escudero on 06-13-2024 Lymphocytes/100 WBC (Bld) 25.9 % 19-41 [facility] MCV (mean corpuscular volume ) determinationOrdered By: Rubens Escudero on 06-13-2024 MCV (RBC) [Entitic vol] 83.8 fL 81-99 [facility] Mean corpuscular hemoglobin (MCH) determinationOrdered By: Rubens Escudero on 06-13-2024 MCH (RBC) [Entitic mass] 29.5 pg 27.0-32.0 [facility] Mean corpuscular hemoglobin concentration (MCHC) determinationOrdered By: Rubens Escudero on 06-13-2024 MCHC (RBC) [Mass/Vol] 35.2 g/dL 32-36 [facility] Mean platelet volume determi nationOrdered By: Rubens Escudero on 06-13-2024 Platelet mean volume (Bld) [Entitic vol] 9.2 fL 6.2-12.0 [facility] Microscopic analysis of urin e for red blood cells (RBC)Ordered By: Rubens Escudero on 06-13-2024 Microscopic analysis of urine for red blood cells (RBC) 0 SEEN /hpf 0-5 [facility] Urine RBC 0 SEEN /hpf 0-5 [facility] Monocyte percentageOrdered B y: Rubens Escudero on 06-13-2024 Monocytes/100 WBC (Bld) 5.4 % 0-10 [facility] Mucus LM Ql (Urine sed)Order ed By: Rubens Escudero on 06-13-2024 Mucus Ql (Urine sed) 0 SEEN /hpf [facility] Neutrophil percentageOrdered By: Rubens Escudero on 06-13-2024 Neutrophils/100 WBC (Bld) 66.2 % 47-70 [facility] Nitrite Test strip Ql (U)Ord ered By: Rubens Escudero on 06-13-2024 Nitrite Ql (U) Negative Negative [facility] Nucleated red blood cell per centageOrdered By: Rubens Escudero on 06-13-2024 Nucleated RBC/100 WBC (Bld) [Ratio] 0 % 0-5 [facility] High Rigger Office Visit Reporton 06-13-2024 High Rigger Office Visit Report [facility], [address] [place] [address] OFFICE VISIT Date of Service: 06/13/24 MR#: [id number] Acct: [id number] Name: RADHA BOONE Rep #: [id number] : 2000 Provider: BUTCH Caldwell ams Age/Sex: 23/F Location: [facility] [place] Status: Signed Intake Vital Signs 05/23/24 10:49 06/13/24 15:52 Height 5 ft 7 in 5 ft 7 in Weight: 253 lb BMI 39.6 BP 123/82 H Intake Visit Reasons: brown spotting and pain Chief Complaint: Brown Spotting and Pain Practice Manager Required: No Is patient in pain?: No [...] allergies Depression Anxiety Surgical History Previous section Kohler teeth extracted Family History Mother Thyroid disorder, Onset Age: 38 Hypothyroid Diabetes GDM with both pregnancies Grandmother Thyroid disorder, Onset Age: 55 Maternal-thyroid nodules benign Diabetes Maternal type 2 Grandmother Diabetes Paternal type 2 Social History adopted: No household members: spouse and children housing: house number of children: 1 current occupational status: unemployed current occupation: [employer] pets and animals: Yes (Avoid litterbox) pets [...] physical activity do you participate in: none janet/ad[employer]: [employer] seatbelt use: always do you feel safe at home: Yes 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 Date Name GA/Weeks Outcome Route Bth Weight Infant Gen Labor Lgth Anesthesia Del Locatn Provider FOB 08/06/20 [place] 39 live - full term 8#1oz Female spinal [facility] Dr. Enedina Balbuena Delivery Date: 08/06/20 Last [...] Negative -???-?? (more content not included)... Normal [facility] Platelet countOrdered By: Arturo Escudero on 06-13-2024 Platelets (Bld) [#/Vol] 257 10*3/uL 150-450 [facility] Potassium (Unsp spec) [Mass/ Vol]Ordered By: Rubens Escudero on 06-13-2024 Potassium [Moles/Vol] 3.9 mmol/L 3.3-5.1 [facility] Potassium measurement (mass/ volume)Ordered By: Rubens Escudero on 06-13-2024 Potassium (Unsp spec) [Mass/Vol] 3.9 mmol/L 3.3-5.1 [facility] Protein Test strip Ql (U)Ord ered By: Rubens Escudero on 06-13-2024 Protein Ql (U) Negative Negative [facility] RBC Auto (Bld) [#/Vol]Ordere d By: Rubens Escudero on 06-13-2024 RBC (Bld) [#/Vol] 4.51 10*6/uL 4.2-5.4 [facility] Serum creatinine measurement (mass/volume)Ordered By: Rubens Escudero on 06-13-2024 Creatinine [Mass/Vol] 0.58 mg/dL Low 0.70-1.20 [facility] Serum glucose measurement (m ass/volume)Ordered By: Rubens Escudero on 06-13-2024 Glucose [Mass/Vol] 96 mg/dL 70-99 [facility] Serum or plasma calcium isabel urement (mass/volume)Ordered By: Rubens Escudero on 06-13-2024 Calcium [Mass/Vol] 9.2 mg/dL 7.6-11.0 [facility] Serum or plasma urea nitroge n measurement (mass/volume)Ordered By: Rubens Escudero on 06-13-2024 Urea nitrogen [Mass/Vol] 6 mg/dL 4-19 [facility] Sodium levelOrdered By: Deshawn Escudero on 06-13-2024 Sodium [Moles/Vol] 137 mmol/L 133-145 [facility] Squamous epithelial cells de tection in urine sediment by light microscopyOrdered By: Rubens Escudero on 06-13-2024 Epithelial cells.squamous LM Ql (Urine sed) 0-5 SEEN /hpf 5-10 [facility] Transvaginal w/Preg USon Transvaginal w/Preg US [facility] [address] [place], [place] [id number] Transvaginal w/Preg US MR#: [id number] Acct: [id number] Name: RADHA BOONE Rep #: [id number] : 2000 F 23 From: Hai Spear MD PCP: JHON SCOTT DO Status: REG ER Study: Transvaginal w/Preg US Date of Exam: 06/13/24 Exam# [id number] Ordering Dr: Rubens Escudero MD PROCEDURE: TRANSVAGINAL [...] Single live intrauterine as above. Reading Location: [facility] CC: Dr. Rubens Escudero MD; JHON SCOTT DO Customer Success Associate: Signed Normal [facility] Urinalysis, Completeon 06-13 AMORPHOUS 1+ URATE Normal [facility] Comment on above: Order Comment: CLEAN CATCH Performed By: #### L 700.8000, L100.0100, L500.4050, B882-1 #### [facility] Laboratory [address] [place], [place], [id number] EPI,SQUAMOUS 0-5 SEEN Normal 5-10 [facility] Comment on above: Order Comment: CLEAN CATCH Performed By: #### L 700.8000, L100.0100, L500.4050, B882-1 #### [facility] [address] [place], [address] BACTERIA 0 SEEN Normal None Seen [facility] Comment on above: Order Comment: CLEAN CATCH Performed By: #### L 700.8000, L100.0100, L500.4050, B882-1 #### [facility] [address] [place], [address] Mucus Ql (Urine sed) 0 SEEN Normal [facility] Comment on above: Order Comment: CLEAN CATCH Performed By: #### L 700.8000, L100.0100, L500.4050, B882-1 #### [facility] [address] [place], [address] RBC 0 SEEN Normal 0-5 [facility] Comment on above: Order Comment: CLEAN CATCH Performed By: #### L 700.8000, L100.0100, L500.4050, B882-1 #### [facility] [address] [place], [address] WBC 0 SEEN Normal 0-5 [facility] Comment on above: Order Comment: CLEAN CATCH Performed By: #### L 700.8000, L100.0100, L500.4050, B882-1 #### [facility] [address] [place], [address] Urine blood detectionOrdered By: Rubens Escudero on 06-13-2024 Urine Occult Blood Negative Negative [facility] Urine clarityOrdered By: Roni Escudero on 06-13-2024 Clarity (U) Sl. Cloudy Clear [facility] Urine color determinationOrd ered By: Rubens Escudero on 06-13-2024 Color (U) Yellow Yellow [facility] Urine glucose detectionOrder ed By: Rubens Escudero on 06-13-2024 Glucose Ql (U) Normal mg/dl Normal [facility] Urine leukocyte esterase det ection by dipstickOrdered By: Rubens Escudero on 06-13-2024 Leukocyte esterase Test strip Ql (U) Negative Negative [facility] Urine pHOrdered By: Rubens Escudero on 06-13-2024 pH (U) 6.0 [pH] 5.0 - 8.0 [facility] Urine sediment bacteria coun t by microscopy (number/high power field)Ordered By: Rubens Escudero on 06-13-2024 Bacteria LM.HPF (Urine sed) [#/Area] 0 /[HPF] None Seen [facility] Urine specific gravity measu rementOrdered By: Rubens Escudero on 06-13-2024 Specific gravity (U) [Rel density] 1.020 1.002-1.030 [facility] Urine urobilinogen measureme ntOrdered By: Rubens Escudero on 06-13-2024 Urobilinogen Ql (U) Normal mg/dl Normal [facility] Urobilinogen Ql (U)Ordered B y: Rubens Escudero on 06-13-2024 Urine Urobilinogen Normal mg/dl Normal [facility] White blood cell (WBC) count Ordered By: Rubens Escudero on 06-13-2024 WBC (Bld) [#/Vol] 8.7 10*3/uL 4.4-11.0 [facility] White blood cell countOrdere d By: Rubens Escudero on 06-13-2024 Urine WBC 0 SEEN /hpf 0-5 [facility] White blood cell count 0 SEEN /hpf 0-5 [facility] Chlamydia/GC NANCY aptimaon CHLAMY,NUC ACID Negative Normal Negative [facility] Comment on above: Performed By: #### L 700.8000, L100.0100, L500.4050, B882-1 #### [facility] [address] [place], [address] GC BY NUC ACID Negative Normal Negative [facility] Comment on above: Result Comment: Perf ormed at: =G - [facility] [address] [place] [id number] Systems Programmer: Alpa Pollock MD, Phone: [phone] Performed By: #### L 700.8000, L100.0100, L500.4050, B882-1 #### [facility] [address] [place], [address] Urine Cultureon 05-25-2024 [facility] Mixed Gram Positive Organisms [place] Count 11,000-25,000 MIXC Mixed contaminants. Submit a new specimen if indicated. Normal [facility] Comment on above: Performed By: #### L 700.8000, L100.0100, L500.4050, B882-1 #### [facility] [address] [place], [address] C. trachomatis rRNA NANCY+prob e Ql (Unsp spec)Ordered By: Amada Black on 05-23-2024 Chlamydia DNA (NANCY) Negative Negative [facility] Chlamydia trachomatis rRNA d etection by probe and target amplification methodOrdered By: Amada Black on 05-23-2024 C. trachomatis rRNA NANCY+probe Ql (Unsp spec) Negative Negative [facility] Neisseria gonorrhoeae nuclei c acid detection by amplified probe techniqueOrdered By: Amada Black on 05-23-2024 N. gonorrhoeae DNA NANCY+probe Ql (Unsp spec) Negative Negative [facility] Comment on above: Performed at: =[address] [id number] Director: Alpa Pollock MD, Phone: [phone] High Rigger Office Visit Reporton 05-23-2024 High Rigger Office Visit Report [facility] [address], [address] [place] [address] OFFICE VISIT Date of Service: 05/23/24 MR#: [id number] Acct: [id number] Name: RADHA BOONE Rep #: [id number] : 2000 Provider: BUTCH Caldwell ams Age/Sex: 23/F Location: [facility] [place] Status: Signed Intake Vital Signs 08/05/20 00:10 [...] 11:14 by Amada Black CNM) Previous section Kohler teeth extracted Family History Mother Thyroid disorder, Onset Age: 38 Hypothyroid Diabetes GDM with both pregnancies Grandmother Thyroid disorder, Onset Age: 55 Maternal-thyroid nodules benign Diabetes Maternal type 2 Grandmother Diabetes Paternal type 2 Social History adopted: No household members: spouse and children housing: house number of children: 1 service: No current occupational status: unemployed current occupation: [employer] pets and animals: Yes (Avoid litterbox) pets [...] physical activity do you participate in: none janet/advent: [employer] seatbelt use: always do you feel safe at home: Yes 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 Date Name GA/Weeks Outcome Route Bth Weight Gen Labor Lgth Anesthesia Del Locatn Provider FOB 08/06/20 Nov[place] 39 live - full term 8#1oz Female spinal [facility] Dr. Enedina Balbuena Delivery Date: 08/06/20 Last [...] NIPT accep (more content not included)... Normal [facility] Urine cultureOrdered By: Demetrius Black on 05-23-2024 Bacteria identified Cx Nom (U) Positive Abnormal [facility] Urine Cultureon 05-21-2024 URC Mixed Gram Positive Organisms [place] Count 1000-10,000 MIXC Mixed contaminants. Submit a new specimen if indicated. Normal [facility] Comment on above: Performed By: #### L 700.8000, L100.0100, L500.4050, B882-1 #### [facility] [address] [place], [address] Absolute lymphocyte countOrd ered By: Brody Cleaning on 05-20-2024 Lymphocytes Auto (Unsp spec) [#/Vol] 2.18 10*3/uL 0.83-4.51 [facility] Absolute neutrophil countOrd ered By: Brody Cleaning on 05-20-2024 Neutrophils (Bld) [#/Vol] 4.2 10*3/uL 2.0-7.7 [facility] Anion gap in Serum or Plasma Ordered By: Brody Cleaning on 05-20-2024 Anion gap [Moles/Vol] 11 mmol/L 5-15 [facility] Automated lymphocyte count a s percentage of total leukocytesOrdered By: Brody Cleaning on 05-20-2024 Lymphocytes/100 WBC Auto (Unsp spec) 30.2 % 19-41 [facility] [id number] 05-20-2024 ABO and Rh group Nom (Bld) Blood group B Rh(D) positive Normal [facility] Comment on above: Performed By: #### L 700.8000, L100.0100, L500.4050, B882-1 #### [facility] [address] [place], [address] BUN/creatinine ratioOrdered By: Brody Cleaning on 05-20-2024 Urea nitrogen/Creatinine [Mass ratio] 11.5 mg/mg 10-20 [facility] Basophil percentageOrdered B y: Brody Cleaning on 05-20-2024 Basophils/100 WBC (Bld) 0.4 % 0-1 [facility] Bilirubin Test strip Ql (U)O rdered By: Brody Cleaning on 05-20-2024 Bilirubin Ql (U) Negative Negative [facility] Bilirubin, totalOrdered By: Brody Cleaning on 05-20-2024 Bilirubin [Mass/Vol] 0.25 mg/dL Normal 0.00-1.30 [facility] Comment on above: Performed By: #### L 700.8000, L100.0100, L500.4050, B882-1 #### [facility] [address] [place], [address] CBC W/Diff, Automatedon 05-10 Absolute Lymph 2.18 X10 3/uL Normal 0.83-4.51 [facility] Comment on above: Performed By: #### L 700.8000, L100.0100, L500.4050, B882-1 #### [facility] [address] [place], [address] Absolute Neut 4.2 X10 3/uL Normal 2.0-7.7 [facility] Comment on above: Performed By: #### L 700.8000, L100.0100, L500.4050, B882-1 #### [facility] [address] [place], [address] Basophils/100 WBC (Bld) 0.4 % Normal 0-1 [facility] Comment on above: Performed By: #### L 700.8000, L100.0100, L500.4050, B882-1 #### [facility] [address] [place], [address] Eosinophils/100 WBC (Bld) 1.8 % Normal 0-5 [facility] Comment on above: Performed By: #### L 700.8000, L100.0100, L500.4050, B882-1 #### [facility] [address] [place], [address] Erythrocyte distribution width (RBC) [Ratio] 12.6 % Normal 11.6-14.6 [facility] Comment on above: Performed By: #### L 700.8000, L100.0100, L500.4050, B882-1 #### [facility] [address] [place], [address] Hematocrit (Bld) [Volume fraction] 39.8 % Normal 37-47 [facility] Comment on above: Performed By: #### L 700.8000, L100.0100, L500.4050, B882-1 #### [facility] [address] [place], [address] Hemoglobin (Bld) [Mass/Vol] 13.6 g/dL Normal 12.0-15.0 [facility] Comment on above: Performed By: #### L 700.8000, L100.0100, L500.4050, B882-1 #### [facility] [address] [place], [address] IG% 0.300 Normal 0.0-0.9 [facility] Comment on above: Result Comment: IG% - Immature Granulocytes (promyelocytes, myelocytes and metamyelocytes) > 1% indicates that a LEFT SHIFT is Present. Performed By: #### L 700.8000, L100.0100, L500.4050, B882-1 #### [facility] [address] [place], [address] Lymphocytes/100 WBC (Bld) 30.2 % Normal 19-41 [facility] Comment on above: Performed By: #### L 700.8000, L100.0100, L500.4050, B882-1 #### [facility] [address] [place], [address] MCH (RBC) [Entitic mass] 28.9 pg Normal 27.0-32.0 [facility] Comment on above: Performed By: #### L 700.8000, L100.0100, L500.4050, B882-1 #### [facility] [address] [place], [address] MCHC (RBC) [Mass/Vol] 34.2 g/dL Normal 32-36 [facility] Comment on above: Performed By: #### L 700.8000, L100.0100, L500.4050, B882-1 #### [facility] [address] [place], [address] MCV (RBC) [Entitic vol] 84.7 fL Normal 81-99 [facility] Comment on above: Performed By: #### L 700.8000, L100.0100, L500.4050, B882-1 #### [facility] [address] [place], [address] Monocytes/100 WBC (Bld) 9.4 % Normal 0-10 [facility] Comment on above: Performed By: #### L 700.8000, L100.0100, L500.4050, B882-1 #### [facility] [address] [place], [address] Neutrophils/100 WBC (Bld) 57.9 % Normal 47-70 [facility] Comment on above: Performed By: #### L 700.8000, L100.0100, L500.4050, B882-1 #### [facility] [address] [place], [address] Nucleated RBC (Bld) [#/Vol] 0 10*3/uL Normal 0-5 [facility] Comment on above: Performed By: #### L 700.8000, L100.0100, L500.4050, B882-1 #### [facility] [address] [place], [address] Platelet mean volume (Bld) [Entitic vol] 9.2 fL Normal 6.2-12.0 [facility] Comment on above: Performed By: #### L 700.8000, L100.0100, L500.4050, B882-1 #### [facility] [address] [place], [address] Platelets (Bld) [#/Vol] 250 10*3/uL Normal 150-450 [facility] Comment on above: Performed By: #### L 700.8000, L100.0100, L500.4050, B882-1 #### [facility] [address] [place], [address] RBC (Bld) [#/Vol] 4.70 10*6/uL Normal 4.2-5.4 [facility] Comment on above: Performed By: #### L 700.8000, L100.0100, L500.4050, B882-1 #### [facility] [address] [place], [address] RDW SD 38.5 fl Normal 35.1-43.9 [facility] Comment on above: Performed By: #### L 700.8000, L100.0100, L500.4050, B882-1 #### [facility] [address] [place], [address] WBC (Bld) [#/Vol] 7.2 10*3/uL Normal 4.4-11.0 [facility] Comment on above: Performed By: #### L 700.8000, L100.0100, L500.4050, B882-1 #### [facility] [address] [place], [address] Carbon dioxide, total [Moles /volume] in Central venous bloodOrdered By: Brody Cleaning on 05-20-2024 CO2 [Moles/Vol] 22.8 mmol/L Normal 21.0-32.0 [facility] Comment on above: Performed By: #### L 700.8000, L100.0100, L500.4050, B882-1 #### [facility] [address] [place], [address] Chloride assayOrdered By: Surjit Cleaning on 05-20-2024 Chloride [Moles/Vol] 104 mmol/L Normal 98-108 [facility] Comment on above: Performed By: #### L 700.8000, L100.0100, L500.4050, B882-1 #### [facility] [address] [place], [address] Comprehensive Metabolic Prof ilon 05-20-2024 ALK PHOS 76 U/L Normal 35-104 [facility] Comment on above: Performed By: #### L 700.8000, L100.0100, L500.4050, B882-1 #### [facility] [address] [place], [address] BUN/CRE 11.5 RATIO Normal 10-20 [facility] Comment on above: Performed By: #### L 700.8000, L100.0100, L500.4050, B882-1 #### [facility] [address] [place], [address] ECRCL 191.87 ml/min Normal 50-250 [facility] Comment on above: Performed By: #### L 700.8000, L100.0100, L500.4050, B882-1 #### [facility] [address] [place], [address] GAP 11 Normal 5-15 [facility] Comment on above: Performed By: #### L 700.8000, L100.0100, L500.4050, B882-1 #### [facility] [address] [place], [address] T PROT 7.0 g/dL Normal 5.9-8.4 [facility] Comment on above: Performed By: #### L 700.8000, L100.0100, L500.4050, B882-1 #### [facility] [address] [place], [address] Comprehensive Metabolic Prof ilOrdered By: Brody Cleaning on 05-20-2024 AST [Catalytic activity/Vol] 17 U/L Normal <=31 [facility] Comment on above: Performed By: #### L 700.8000, L100.0100, L500.4050, B882-1 #### [facility] [address] [place], [address] Emergency Department Summary on 05-20-2024 Emergency Department Summary [facility] Medical Records Department [address] [place] [address] Emergency Department Summary 05/20/24 MR#: [id number] Acct: [id number] Name: RADHA BOONE Rep #: [id number] : 2000 23 From: Brody Cleaning DO [...] she does have appointment on Sunday with [facility] however states that she feels [...] Patient denies any abdominal pain or cramping. 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 Normal [facility] Eosinophil percentageOrdered By: Brody Cleaning on 05-20-2024 Eosinophils/100 WBC (Bld) 1.8 % 0-5 [facility] Epithelial cells.squamous LM Ql (Urine sed)Ordered By: Brody Cleaning on 05-20-2024 Epithelial cells.squamous LM.HPF (Urine sed) [#/Area] 0 /[HPF] 5-10 [facility] Erythrocyte distribution wid th ratioOrdered By: Brody Cleaning on 05-20-2024 Erythrocyte distribution width (RBC) [Ratio] 12.6 % 11.6-14.6 [facility] Erythrocyte distribution wid th standard deviationOrdered By: Brody Cleaning on 05-20-2024 Erythrocyte distribution width (RBC) [Entitic vol] 38.5 fL 35.1-43.9 [facility] Erythrocyte distribution width (RBC) [Ratio] 38.5 fl 35.1-43.9 [facility] Estimation of creatinine ana aranceOrdered By: Brody Cleaning on 05-20-2024 Estimated Creatinine Clearance Calc 191.87 ml/min 50-250 [facility] GFR/1.73 sq M.predicted ab g non-blacks MDRD (S/P/Bld) [Vol rate/Area]Ordered By: Brody Cleaning on 05-20-2024 Estimated GFR (MDRD) Non-Af Amer 129 >60 [facility] Comment on above: mL/min/1.73m2 CKD-EP I Creatinine Equation (2020) Glomerular filtration rate ( GFR) estimation/1.73 sq m using serum, plasma, or whole bOrdered By: Brody Cleaning on 05-20-2024 GFR/1.73 sq M.predicted among non-blacks MDRD (S/P/Bld) [Vol rate/Area] 129 mL/min/{1.73_m2} Normal >60 [facility] Comment on above: mL/min/1.73m2 CKD-EP I Creatinine Equation (2020) Result Comment: mL/m in/1.73m2 CKD-EPI Creatinine Equation (2020) Performed By: #### L 700.8000, L100.0100, L500.4050, B882-1 #### [facility] [address] [place], [address] Glucose Ql (U)Ordered By: Surjit Cleaning on 05-20-2024 Urine Glucose (UA) Normal mg/dl Normal [facility] HCG ( test) QlOrder ed By: Brody Cleaning on 05-20-2024 Human Chorionic Gonadotropin, Quant 43865 mIU/mL High <9 [facility] Comment on above: Gestational Age0.2-1 Week: 5-50 mIU/mL1-2 Weeks: 50-500 mIU/mL2-3 Weeks: 100-5000 mIU/mL3-4 Weeks: 500-10,000 mIU/mL4-5 Weeks:1000-50,000 mIU/mL5-6 Weeks: 10,000-100,000 mIU/mL6-8 Weeks: 15,000-200,000 mIU/mL2-3 Months:10,000-100,000 mIU/mL Hematocrit Auto (Bld) [Volum e fraction]Ordered By: Brody Cleaning on 05-20-2024 Hematocrit (Bld) [Volume fraction] 39.8 % 37-47 [facility] Hemoglobin measurementOrdere d By: Brody Cleaning on 05-20-2024 Hemoglobin (Bld) [Mass/Vol] 13.6 g/dL 12.0-15.0 [facility] Immature granulocytes/100 WB C Auto (Bld)Ordered By: Brody Cleaning on 05-20-2024 Immature granulocytes/100 WBC (Bld) 0.300 % 0.0-0.9 [facility] Comment on above: IG% - Immature Granu locytes (promyelocytes, myelocytes and metamyelocytes) > 1% indicates that a LEFT SHIFT is Present. Ketones Test strip Ql (U)Ord ered By: Brody Cleaning on 05-20-2024 Ketones Ql (U) Negative Negative [facility] Lymphocytes Auto (Unsp spec) [#/Vol]Ordered By: Brody Cleaning on 05-20-2024 Lymphocytes (Bld) [#/Vol] 2.18 10*3/uL 0.83-4.51 [facility] Lymphocytes/100 WBC Auto (Un sp spec)Ordered By: Brody Cleaning on 05-20-2024 Lymphocytes/100 WBC (Bld) 30.2 % 19-41 [facility] MCV (mean corpuscular volume ) determinationOrdered By: Brody Cleaning on 05-20-2024 MCV (RBC) [Entitic vol] 84.7 fL 81-99 [facility] Mean corpuscular hemoglobin (MCH) determinationOrdered By: Brody Cleaning on 05-20-2024 MCH (RBC) [Entitic mass] 28.9 pg 27.0-32.0 [facility] Mean corpuscular hemoglobin concentration (MCHC) determinationOrdered By: Brody Cleaning on 05-20-2024 MCHC (RBC) [Mass/Vol] 34.2 g/dL 32-36 [facility] Mean platelet volume determi nationOrdered By: Brody Cleaning on 05-20-2024 Platelet mean volume (Bld) [Entitic vol] 9.2 fL 6.2-12.0 [facility] Microscopic analysis of urin e for red blood cells (RBC)Ordered By: Brody Cleaning on 05-20-2024 Microscopic analysis of urine for red blood cells (RBC) 0-5 SEEN /hpf 0-5 [facility] Urine RBC 0-5 SEEN /hpf 0-5 [facility] Monocyte percentageOrdered B y: Brody Cleaning on 05-20-2024 Monocytes/100 WBC (Bld) 9.4 % 0-10 [facility] Mucus LM Ql (Urine sed)Order ed By: Brody Cleaning on 05-20-2024 Mucus Ql (Urine sed) 0 SEEN /hpf [facility] Neutrophil percentageOrdered By: Brody Cleaning on 05-20-2024 Neutrophils/100 WBC (Bld) 57.9 % 47-70 [facility] Nitrite Test strip Ql (U)Ord ered By: Brody Cleaning on 05-20-2024 Nitrite Ql (U) Negative Negative [facility] Nucleated red blood cell per centageOrdered By: Brody Cleaning on 05-20-2024 Nucleated RBC/100 WBC (Bld) [Ratio] 0 % 0-5 [facility] Platelet countOrdered By: Surjit Cleaning on 05-20-2024 Platelets (Bld) [#/Vol] 250 10*3/uL 150-450 [facility] Potassium measurement (mass/ volume)Ordered By: Brody Cleaning on 05-20-2024 Potassium (Unsp spec) [Mass/Vol] 3.7 mmol/L 3.3-5.1 [facility] Potassium [Moles/Vol] 3.7 mmol/L Normal 3.3-5.1 [facility] Comment on above: Performed By: #### L 700.8000, L100.0100, L500.4050, B882-1 #### [facility] [address] [place], [address] Protein Test strip Ql (U)Ord ered By: Brody Cleaning on 05-20-2024 Protein Ql (U) Negative Negative [facility] RBC Auto (Bld) [#/Vol]Ordere d By: Brody Cleaning on 05-20-2024 RBC (Bld) [#/Vol] 4.70 10*6/uL 4.2-5.4 [facility] Serum creatinine measurement (mass/volume)Ordered By: Brody Cleaning on 05-20-2024 Creatinine [Mass/Vol] 0.59 mg/dL Low 0.70-1.20 [facility] Comment on above: Performed By: #### L 700.8000, L100.0100, L500.4050, B882-1 #### [facility] [address] [place], [address] Serum globulin measurementOr dered By: Brody Cleaning on 05-20-2024 Globulin (S) [Mass/Vol] 3.0 g/dL Normal 2.2-4.2 [facility] Comment on above: Performed By: #### L 700.8000, L100.0100, L500.4050, B882-1 #### [facility] [address] [place], [address] Serum glucose measurement (m ass/volume)Ordered By: Brody Cleaning on 05-20-2024 Glucose [Mass/Vol] 84 mg/dL Normal 70-99 [facility] Comment on above: Performed By: #### L 700.8000, L100.0100, L500.4050, B882-1 #### [facility] [address] [place], [place], [address] Serum human chorionic gonado tropin detection for pregnancyOrdered By: Brody Cleaning on 05-20-2024 HCG ( test) [place]l [address] mIU/mL High <9 [facility] Comment on above: Gestational Age0.2-1 Week: 5-50 mIU/mL1-2 Weeks: 50-500 mIU/mL2-3 Weeks: 100-5000 mIU/mL3-4 Weeks: 500-10,000 mIU/mL4-5 Weeks:1000-50,000 mIU/mL5-6 Weeks: 10,000-100,000 mIU/mL6-8 Weeks: 15,000-200,000 mIU/mL2-3 Months:10,000-100,000 mIU/mL Serum or plasma alanine hurley otransferase (ALT) measurementOrdered By: Brody Cleaning on 05-20-2024 ALT [Catalytic activity/Vol] 17 U/L Normal <=34 [facility] Comment on above: Performed By: #### L 700.8000, L100.0100, L500.4050, B882-1 #### [facility] [address] [facility] [address] [place], [place], [address] Serum or plasma albumin isabel urement (mass/volume)Ordered By: Brody Cleaning on 05-20-2024 Albumin [Mass/Vol] 3.9 g/dL Normal 3.5-5.0 [facility] Comment on above: Performed By: #### L 700.8000, L100.0100, L500.4050, B882-1 #### [facility] [address] [place], [address] Serum or plasma albumin/glob ulin mass ratioOrdered By: Brody Cleaning on 05-20-2024 Albumin/Globulin [Mass ratio] 1.3 {ratio} Normal 0.9-2.4 [facility] Comment on above: Performed By: #### L 700.8000, L100.0100, L500.4050, B882-1 #### [facility] [address] [place], [address] Serum or plasma alkaline néstor sphatase measurementOrdered By: Brody Cleaning on 05-20-2024 ALP [Catalytic activity/Vol] 76 U/L 35-104 [facility] Serum or plasma calcium isabel urement (mass/volume)Ordered By: Brody Cleaning on 05-20-2024 Calcium [Mass/Vol] 9.2 mg/dL Normal 7.6-11.0 [facility] Comment on above: Performed By: #### L 700.8000, L100.0100, L500.4050, B882-1 #### [facility] [address] [place], [address] Serum or plasma urea nitroge n measurement (mass/volume)Ordered By: Brody Cleaning on 05-20-2024 Urea nitrogen [Mass/Vol] 7 mg/dL Normal 4-19 [facility] Comment on above: Performed By: #### L 700.8000, L100.0100, L500.4050, B882-1 #### [facility] [address] [place], [address] Sodium levelOrdered By: Gomez Cleaning on 05-20-2024 Sodium [Moles/Vol] 138 mmol/L Normal 133-145 [facility] Comment on above: Performed By: #### L 700.8000, L100.0100, L500.4050, B882-1 #### [facility] [address] [place], [address] Squamous epithelial cells de tection in urine sediment by light microscopyOrdered By: Brody Cleaning on 05-20-2024 Epithelial cells.squamous LM Ql (Urine sed) 0-5 SEEN /hpf 5-10 [facility] Total proteinOrdered By: Hubert Cleaning on 05-20-2024 Protein [Mass/Vol] 7.0 g/dL 5.9-8.4 [facility] Transvaginal w/Preg USon Transvaginal w/Preg US [facility] [address] [place], [place] [id number] Transvaginal w/Preg US MR#: [id number] Acct: [id number] Name: RADHA BOONE Rep #: [id number] : 2000 F 23 From: Ervin Webb MD PCP: JHON SCOTT DO Status: REG ER Study: Transvaginal w/Preg US Date of Exam: 05/20/24 Exam# [id number] Ordering Dr: Brody Cleaning DO PROCEDURE: TRANSVAGINAL [...] 25% of the gestational sac surface area. [place]-rump length: 17 mm, corresponding to 8 weeks [...] 5. Additional description as above. Reading Location: [id number] CC: Dr. Brody Cleaning DO; JHON SCOTT DO Customer Success Associate: Signed Normal [facility] Urinalysis, Completeon 05-20 EPI,SQUAMOUS 0-5 SEEN Normal 5-10 [facility] Comment on above: Order Comment: REAGAN CTOR TO SPECIFY Performed By: #### L 400.0001 #### [facility] [address] [facility] [place], [address] RBC 0-5 SEEN Normal 0-5 [facility] Comment on above: Order Comment: REAGAN CTOR TO SPECIFY Performed By: #### L 400.0001 #### [facility] [address] [place], [address] WBC 0-5 SEEN Normal 0-5 [facility] Comment on above: Order Comment: REAGAN CTOR TO SPECIFY Performed By: #### L 400.0001 #### [facility] [address] [place], [address] BACTERIA 0 SEEN Normal None Seen [facility] Comment on above: Order Comment: CLEAN CATCH Result Comment: dupl icate Performed By: #### L 700.8000, L100.0100, L500.4050, B882-1 #### [facility] [address] [place], [address] EPI,SQUAMOUS 0 SEEN Normal 5-10 [facility] Comment on above: Order Comment: CLEAN CATCH Result Comment: dupl icate Performed By: #### L 700.8000, L100.0100, L500.4050, B882-1 #### [facility] [address] [place], [address] Mucus Ql (Urine sed) 0 SEEN Normal [facility] Comment on above: Order Comment: CLEAN CATCH Result Comment: dupl icate Performed By: #### L 700.8000, L100.0100, L500.4050, B882-1 #### [facility] [address] [place], [address] WBC 0 SEEN Normal 0-5 [facility] Comment on above: Order Comment: CLEAN CATCH Result Comment: dupl icate Performed By: #### L 700.8000, L100.0100, L500.4050, B882-1 #### [facility] [address] [place], [address] BACTERIA 0 SEEN Normal None Seen [facility] Comment on above: Order Comment: COLLE CTOR TO SPECIFY Performed By: #### L 400.0001 #### [facility] [address] [place], [address] Mucus Ql (Urine sed) 0 SEEN Normal [facility] Comment on above: Order Comment: COLLE CTOR TO SPECIFY Performed By: #### L 400.0001 #### [facility] [address] [place], [address] BILIRUBIN URINE Normal Negative [facility] Comment on above: Order Comment: CLEAN CATCH Result Comment: dupl icate Performed By: #### L 700.8000, L100.0100, L500.4050, B882-1 #### [facility] [address] [place], [address] Clarity (U) Normal Clear [facility] Comment on above: Order Comment: CLEAN CATCH Result Comment: dupl icate Performed By: #### L 700.8000, L100.0100, L500.4050, B882-1 #### [facility] [address] [place], [address] Color (U) Normal Yellow [facility] Comment on above: Order Comment: CLEAN CATCH Result Comment: dupl icate Performed By: #### L 700.8000, L100.0100, L500.4050, B882-1 #### [facility] [address] [place], [address] GLUCOSE, UR Normal Normal [facility] Comment on above: Order Comment: CLEAN CATCH Result Comment: dupl icate Performed By: #### L 700.8000, L100.0100, L500.4050, B882-1 #### [facility] [address] [place], [address] KETONE UR Normal Negative [facility] Comment on above: Order Comment: CLEAN CATCH Result Comment: dupl icate Performed By: #### L 700.8000, L100.0100, L500.4050, B882-1 #### [facility] [address] [place], [address] LEUK ESTERASE Normal Negative [facility] Comment on above: Order Comment: CLEAN CATCH Result Comment: dupl icate Performed By: #### L 700.8000, L100.0100, L500.4050, B882-1 #### [facility] [address] [place], [address] Nitrite Ql (U) Normal Negative [facility] Comment on above: Order Comment: CLEAN CATCH Result Comment: dupl icate Performed By: #### L 700.8000, L100.0100, L500.4050, B882-1 #### [facility] [address] [place], [address] OCCULT BLOOD-UR Normal Negative [facility] Comment on above: Order Comment: CLEAN CATCH Result Comment: dupl icate Performed By: #### L 700.8000, L100.0100, L500.4050, B882-1 #### [facility] [address] [place], [address] pH UR Normal 5.0 - 8.0 [facility] Comment on above: Order Comment: CLEAN CATCH Result Comment: dupl icate Performed By: #### L 700.8000, L100.0100, L500.4050, B882-1 #### [facility] [address] [place], [address] PROT DIPSTX Normal Negative [facility] Comment on above: Order Comment: CLEAN CATCH Result Comment: dupl icate Performed By: #### L 700.8000, L100.0100, L500.4050, B882-1 #### [facility] [address] [place], [address] RBC Normal 0-5 [facility] Comment on above: Order Comment: CLEAN CATCH Result Comment: dupl icate Performed By: #### L 700.8000, L100.0100, L500.4050, B882-1 #### [facility] [address] [place], [address] SP.GR. DIPSTX Normal 1.002-1.030 [facility] Comment on above: Order Comment: CLEAN CATCH Result Comment: dupl icate Performed By: #### L 700.8000, L100.0100, L500.4050, B882-1 #### [facility] [address] [place], [address] UR Preservative Normal [facility] Comment on above: Order Comment: CLEAN CATCH Result Comment: dupl icate Performed By: #### L 700.8000, L100.0100, L500.4050, B882-1 #### [facility] [address] [place], [address] UROBILI Normal Normal [facility] Comment on above: Order Comment: CLEAN CATCH Result Comment: dupl icate Performed By: #### L 700.8000, L100.0100, L500.4050, B882-1 #### [facility] [address] [place], [address] Urine blood detectionOrdered By: Brody Cleaning on 05-20-2024 Urine Occult Blood 10 /ul High Negative [facility] Urine clarityOrdered By: Hubert Cleaning on 05-20-2024 Clarity (U) Clear Clear [facility] Urine color determinationOrd ered By: Brody Cleaning on 05-20-2024 Color (U) Straw Yellow [facility] Urine cultureOrdered By: Hubert Cleaning on 05-20-2024 Bacteria identified Cx Nom (U) Positive Abnormal [facility] Urine glucose detectionOrder ed By: Brody Cleaning on 05-20-2024 Glucose Ql (U) Normal mg/dl Normal [facility] Urine leukocyte esterase det ection by dipstickOrdered By: Brody Cleaning on 05-20-2024 Leukocyte esterase Test strip Ql (U) 25 /ul High Negative [facility] Urine pHOrdered By: Brody craft on 05-20-2024 pH (U) 7.0 [pH] 5.0 - 8.0 [facility] Urine sediment bacteria coun t by microscopy (number/high power field)Ordered By: Brody Cleaning on 05-20-2024 Bacteria LM.HPF (Urine sed) [#/Area] 0 /[HPF] None Seen [facility] Urine specific gravity measu rementOrdered By: Brody Cleaning on 05-20-2024 Specific gravity (U) [Rel density] 1.005 1.002-1.030 [facility] Urine urobilinogen measureme ntOrdered By: Brody Cleaning on 05-20-2024 Urobilinogen Ql (U) Normal mg/dl Normal [facility] Urobilinogen Ql (U)Ordered B y: Brody Cleaning on 05-20-2024 Urine Urobilinogen Normal mg/dl Normal [facility] White blood cell (WBC) count Ordered By: Brody Cleaning on 05-20-2024 WBC (Bld) [#/Vol] 7.2 10*3/uL 4.4-11.0 [facility] White blood cell countOrdere d By: Brody Cleaning on 05-20-2024 Urine WBC 0-5 SEEN /hpf 0-5 [facility] White blood cell count 0-5 SEEN /hpf 0-5 [facility] hCG Titer Quant., Serumon HCG QUANT. 69223 mIU/mL High <9 non-preg [facility] Comment on above: Result Comment: Gest ational Age 0.2-1 Week: 5-50 mIU/mL 1-2 Weeks: 50-500 mIU/mL 2-3 Weeks: 100-5000 mIU/mL 3-4 Weeks: 500-10,000 mIU/mL 4-5 Weeks:1000-50,000 mIU/mL 5-6 Weeks: 10,000-100,000 mIU/mL 6-8 Weeks: 15,000-200,000 mIU/mL 2-3 Months:10,000-100,000 mIU/mL Performed By: #### L 700.8000, L100.0100, L500.4050, B882-1 #### [facility] [address] [facility] [place], [address] POC , URINE - RALSo n 04-08-2024 Beta HCG ( test) Ql (U) Negative Normal Negative [facility] Comment on above: Order Comment: Negat emanuel: Dilute urine specimens, as indicated by a low specific gravity (<1.010) may not contain representitive levels of hCG. If is still suspected, a serum test or repeat urine test using a first morning urine specimen should be considered. Performed By: #### 4 8123 #### LAB [address], [place] [address] Luis Frenando Sandoval M.D. [id number] TISSUE EXAMon 04-08-2024 TISSUE EXAM Surgical Pathology Report Case: [id number] Authorizing Provider: Pal Booker, Collected: 04/08/2024 11:03 AM Ordering Location: [facility] Surgery Received: 04/08/2024 12:11 PM Center Periop [...] 1 cassette(s). LM Gross examination performed at: [facility] - [address] [place] [address] Microscopic examination is performed. Normal [facility] Comment on above: Performed By: #### 4 7015 #### [place] [address] Luis Fernando Sandoval M.D. [id number] Bacteria identifiedon 2023 Bacteria identified Cx Nom (U) Test: Urine Culture Specimen Source: Clean Catch/Voided Specimen Type: Urine Specimen Date: 03/06/20241729 Result Date: 03/07/20241937 Result Status: Final result Abnormal: No Resulting Lab: [facility] [address] [place] [address] CULTURE Clinically insignificant growth based on current clinical standards. [facility] Comment on above: Performed By: #### 6 30-4 #### ELVIRA Cevallos ([id number]) [facility] ([facility]) [address] [place] [address] CBC panel Auto (Bld)on 03-06 Erythrocyte distribution width (RBC) [Ratio] 12.4 % 11.5 - 14.5 % [facility] Hematocrit (Bld) [Volume fraction] 41.2 % 36.0 - 46.0 % [facility] Hemoglobin (Bld) [Mass/Vol] 13.8 g/dL 12.0 - 16.0 g/dL [facility] Interpretation and review of laboratory results Normal [facility] MCH (RBC) [Entitic mass] 28.6 pg 26.0 - 34.[address] [facility] MCHC (RBC) [Mass/Vol] 33.5 g/dL 32.0 - 36.0 g/dL [facility] MCV (RBC) [Entitic vol] 85 fL 80 - [address] [facility] Nucleated RBC/100 WBC (Bld) [Ratio] 0 % [facility] Platelets (Bld) [#/Vol] 273 10*3/uL [facility] RBC (Bld) [#/Vol] 4.83 10*6/uL [facility] WBC (Bld) [#/Vol] 9.1 10*3/uL [facility] Erythrocyte distribution width (RBC) [Ratio] 12.4 % Normal 11.5-14.5 [facility] Comment on above: Performed By: #### 5 8410-2 #### JATINDER BURDICK ([id number]) [facility] ([facility]) [address] [place] [address] Hematocrit (Bld) [Volume fraction] 41.2 % Normal 36.0-46.0 [facility] Comment on above: Performed By: #### 5 8410-2 #### JATINDER BURDICK ([id number]) [facility] ([facility]) [address] [place] [address] Hemoglobin (Bld) [Mass/Vol] 13.8 g/dL Normal 12.0-16.0 [facility] Comment on above: Performed By: #### 5 8410-2 #### JATINDER BURDICK ([id number]) [facility] ([facility]) [address] [place] [address] MCH (RBC) [Entitic mass] 28.6 pg Normal 26.0-34.0 [facility] Comment on above: Performed By: #### 5 8410-2 #### JATINDER BURDICK ([id number]) [facility] ([facility]) [address] [place] [address] MCHC (RBC) [Mass/Vol] 33.5 g/dL Normal 32.0-36.0 [facility] Comment on above: Performed By: #### 5 8410-2 #### JATINDER BURDICK ([id number]) [facility] ([facility]) [address] [place] [address] MCV (RBC) [Entitic vol] 85 fL Normal 80-100 [facility] Comment on above: Performed By: #### 5 8410-2 #### JATINDER BURDICK ([id number]) [facility] ([facility]) [address] [place] [address] Nucleated RBC/100 WBC (Bld) [Ratio] 0.0 /100 WBCs Normal 0.0-0.0 [facility] Comment on above: Performed By: #### 5 8410-2 #### JATINDER BURDICK ([id number]) [facility] ([facility]) [address] [place] [address] Platelets (Bld) [#/Vol] 273 x10*3/uL Normal 150-450 [facility] Comment on above: Performed By: #### 5 8410-2 #### JATINDER BURDICK ([id number]) [facility] ([facility]) [address] [place] [address] RBC (Bld) [#/Vol] 4.83 x10*6/uL Normal 4.00-5.20 [facility] Comment on above: Performed By: #### 5 8410-2 #### JATINDER BURDICK ([id number]) [facility] ([facility]) [address] [place] [address] WBC (Bld) [#/Vol] 9.1 x10*3/uL Normal 4.4-11.3 [facility] Comment on above: Performed By: #### 5 8410-2 #### TOBIAS GENNARO ([id number]) [facility] ([facility]) [address] [place] [address] CT ABDOMEN PELVIS W IV CONTR Aissatou 03-06-2024 CT ABDOMEN PELVIS W IV CONTRAST STUDY: CT Abdomen and Pelvis with IV Contrast; 03/06/2024, 6:24 PM INDICATION: Nausea, and emesis. COMPARISON: None Available. ACCESSION NUMBER(S): [id number] ORDERING CLINICIAN: ARIANNE TOWNSEND TECHNIQUE: CT of [...] Normal appendix. Signed by Esteban Jones DO [facility] CT Abdomen and Pelvis W cont rast Sanjya 03-06-2024 No acute findings. Normal appendix. Signed by Esteban Jones DO TELERADIOLOGY STUDY: CT Abdomen and Pelvis with IV Contrast; 03/06/2024, 6:24 PM INDICATION: Nausea, and emesis. COMPARISON: None Available. ACCESSION NUMBER(S): [id number] ORDERING CLINICIAN: ARIANNE TOWNSEND TECHNIQUE: CT of [...] fracture or aggressive osseous lesion. TELERADIOLOGY Esteban Jones, DO - 03/06/2024 STUDY: CT Abdomen and Pelvis with IV Contrast; 03/06/2024, 6:24 PM INDICATION: Nausea, and emesis. COMPARISON: None Available. ACCESSION NUMBER(S): [id number] ORDERING CLINICIAN: ARIANNE TOWNSEND TECHNIQUE: CT of [...] Normal appendix. Signed by Esteban Jones DO [facility] Work Phone: Radiology Study observation (narrative) [facility] [place] Work Phone: CT Abdomen and Pelvis W cont rast IVOrdered By: Esteban Jones on 03-06-2024 [facility] Work Phone: Comprehensive metabolic 2000 panelon 03-06-2024 Albumin BCP dye [Mass/Vol] 4.3 g/dL 3.4 - 5.0 g/dL [facility] ALP [Catalytic activity/Vol] 76 U/L 33 - 110 U/L [facility] ALT With P-5'-P [Catalytic activity/Vol] 19 U/L 7 - 45 U/L [facility] Comment on above: Patients treated wit h Sulfasalazine may generate falsely decreased results for ALT. Anion gap [Moles/Vol] 9 mmol/L Low 10 - 2 0 mmol/L [facility] AST With P-5'-P [Catalytic activity/Vol] 17 U/L 9 - 39 U/L [facility] Bilirubin [Mass/Vol] 0.3 mg/dL 0.0 - 1 .2 mg/dL [facility] Calcium [Mass/Vol] 9 mg/dL 8.6 - 10. 3 mg/dL [facility] Chloride [Moles/Vol] 105 mmol/L 98 - 10 7 mmol/L [facility] CO2 [Moles/Vol] 28 mmol/L 21 - 32 mmol/L [facility] Creatinine [Mass/Vol] 0.64 mg/dL 0.50 - 1.05 mg/dL [facility] eGFR - PINF [facility] Comment on above: Calculations of katelyn mated GFR are performed using the 2020 CKD-EPI Study Refit equation without the race variable for the IDMS-Traceable creatinine methods. https://jasn.asnjournals.org/content//ASN.2020 303492 Glucose [Mass/Vol] 85 mg/dL 74 - 99 mg/dL [facility] Interpretation and review of laboratory results Abnormal [facility] Potassium [Moles/Vol] 4 mmol/L 3.5 - 5.3 mmol/L [facility] Protein [Mass/Vol] 7.4 g/dL 6.4 - 8.2 g/dL [facility] Sodium [Moles/Vol] 138 mmol/L 136 - 145 mmol/L [facility] Urea nitrogen [Mass/Vol] 12 mg/dL 6 - 23 mg/dL [facility] [place] Albumin BCP dye [Mass/Vol] 4.3 g/dL Normal 3.4-5.0 [facility] Comment on above: Performed By: #### 2 4323-8 #### JATINDER BURDICK ([id number]) [facility] ([facility]) [address] [place] [address] ALP [Catalytic activity/Vol] 76 U/L Normal 33-110 [facility] Comment on above: Performed By: #### 2 4323-8 #### JATINDER BURDICK ([id number]) [facility] ([facility]) [address] [place] [address] ALT With P-5'-P [Catalytic activity/Vol] 19 U/L Normal 7-45 [facility] Comment on above: Result Comment: Cecilia ents treated with Sulfasalazine may generate falsely decreased results for ALT. Performed By: #### 2 4323-8 #### JATINDER BURDICK ([id number]) [facility] ([facility]) [address] [place] [address] Anion gap [Moles/Vol] 9 mmol/L Low 10-20 [facility] Comment on above: Performed By: #### 2 4323-8 #### JATINDER BURDICK ([id number]) [facility] ([facility]) [address] [place] [address] AST With P-5'-P [Catalytic activity/Vol] 17 U/L Normal 9-39 [facility] Comment on above: Performed By: #### 2 4323-8 #### JATINDER BURDICK ([id number]) [facility] ([facility]) [address] [place] [address] Bilirubin [Mass/Vol] 0.3 mg/dL Normal 0.0-1.2 [facility] Comment on above: Performed By: #### 2 4323-8 #### JATINDER BURDICK ([id number]) [facility] ([facility]) [address] [place] [address] Calcium [Mass/Vol] 9.0 mg/dL Normal 8.6-10.3 [facility] Comment on above: Performed By: #### 2 432-8 #### JATINDER BURDICK ([id number]) [facility] ([facility]) [address] [place] [address] Chloride [Moles/Vol] 105 mmol/L Normal 98-107 [facility] Comment on above: Performed By: #### 2 4323-8 #### JATINDER BURDICK ([id number]) [facility] ([facility]) [address] [place] [address] CO2 [Moles/Vol] 28 mmol/L Normal 21-32 [facility] Comment on above: Performed By: #### 2 4323-8 #### JATINDER BURDICK ([id number]) [facility] ([facility]) [facility] [place] [address] Creatinine [Mass/Vol] 0.64 mg/dL Normal 0.50-1.05 [facility] Comment on above: Performed By: #### 2 4323-8 #### JATINDER BURDICK ([id number]) [facility] ([facility]) [address] [place] [address] 62329 GFR/1.73 sq M.predicted MDRD (S/P/Bld) [Vol rate/Area] mL/min/{1.73_m2} Normal >60 [facility] Comment on above: Result Comment: Calc ulations of estimated GFR are performed using the 2020 CKD-EPI Study Refit equation without the race variable for the IDMS-Traceable creatinine methods. https://jasn.asnjournals.org/content/early//ASN.2020 222468 Performed By: #### 2 4323-8 #### JATINDER BURDICK ([id number]) [facility] ([facility]) [address] [place] [address] 71767 Glucose [Mass/Vol] 85 mg/dL Normal 74-99 [facility] Comment on above: Performed By: #### 2 4323-8 #### JATINDER BURDICK ([id number]) [facility] ([facility]) [address] [place] [address] 36608 Potassium [Moles/Vol] 4.0 mmol/L Normal 3.5-5.3 [facility] Comment on above: Performed By: #### 2 4323-8 #### JATINDER BURDICK ([id number]) [facility] ([facility]) [address] [place] [address] 52960 Protein [Mass/Vol] 7.4 g/dL Normal 6.4-8.2 [facility] Comment on above: Performed By: #### 2 4323-8 #### JATINDER BURDICK ([id number]) [facility] ([facility]) [address] [place] [address] 08926 Sodium [Moles/Vol] 138 mmol/L Normal 136-145 [facility] Comment on above: Performed By: #### 2 4323-8 #### JATINDER BURDICK ([id number]) [facility] ([facility]) [address] [place] [address] 19239 Urea nitrogen [Mass/Vol] 12 mg/dL Normal 6-23 [facility] Comment on above: Performed By: #### 2 4323-8 #### JATINDER BURDICK ([id number]) [facility] ([facility]) [address] [place] [address] 65102 HCG ( test) IA.rapi d Ql (U)Ordered By: Kanu Edward on 03-06-2024 HCG ( test) Ql (U) Negative NEGATIVE [facility] Interpretation and review of laboratory results Normal [facility] HCG ( test) IA.rapi d Ql (U)on 03-06-2024 HCG ( test) Ql (U) Negative Normal NEGATIVE [facility] Comment on above: Performed By: #### 8 0384-1 #### JATINDER BURDICK ([id number]) [facility] ([facility]) [address] [place] [address] Lipaseon 03-06-2024 Lipase [Catalytic activity/Vol] 46 U/L U/L [facility] Lipase [Catalytic activity/V ol]on 03-06-2024 Interpretation and review of laboratory results Normal [facility] Venipuncture immediately after or during the administration of Metamizole may lead to falsely low results. Testing should be performed immediately prior to Metamizole dosing. [facility] No Panel Informationon 03-06 Extra Tube Hold for add-ons. [facility] Comment on above: Auto resulted. [facility] Interpretation and review of laboratory results Abnormal [facility] Triacylglycerol lipaseon Lipase [Catalytic activity/Vol] 46 U/L Normal [facility] Comment on above: Order Comment: Venip uncture immediately after or during the administration of Metamizole may lead to falsely low results. Testing should be performed immediately prior to Metamizole dosing. Performed By: #### 3 040-3 #### JATINDER BURDICK ([id number]) [facility] ([facility]) [address] [place] [address] Urinalysis complete W Reflex Culture panel (U)on 03-06-2024 Appearance (U) Clear Clear [facility] Bilirubin (U) [Mass/Vol] Negative NEGATIVE [facility] Color (U) Light-Yellow Light-Yellow , Yellow, Dark-Yellow [facility] Glucose Auto test strip (U) [Mass/Vol] Normal Normal mg/dL [facility] Ketones (U) [Mass/Vol] Negative NEGAT EMANUEL mg/dL [facility] Leukocyte esterase Auto test strip Ql (U) 75 Clarisa/ L Abnormal NEGATIVE [facility] Nitrite Auto test strip Ql (U) Negative NEGATIVE [facility] pH (U) 6 [pH] 5.0, 5.5, 6.0, 6.5, 7.0, 7.5, 8.0 [facility] Protein (U) [Mass/Vol] Negative NEGAT EMANUEL, 10 (TRACE), 20 (TRACE) mg/dL [facility] RBC (U) [#/Vol] 0.2 (2+) Abnormal NEGATIVE [facility] Specific gravity (U) [Rel density] 1.021 1.005 - 1.035 [facility] Urobilinogen (U) [Mass/Vol] Normal Normal mg/dL [facility] Appearance (U) Clear Normal Clear [facility] Comment on above: Performed By: #### 5 8077-9 #### JATINDER BURDICK ([id number]) [facility] ([facility]) [address] [place] [address] Bilirubin (U) [Mass/Vol] Negative Normal NEGATIVE [facility] Comment on above: Performed By: #### 5 8077-9 #### JATINDER BURDICK ([id number]) [facility] ([facility]) [address] [place] [address] 41476 Color (U) Light-Yellow Normal Light-Yellow , Yellow, Dark-Yellow [facility] Comment on above: Performed By: #### 5 8077-9 #### JATINDER BURDICK ([id number]) [facility] ([facility]) [address] [place] [address] 04870 Glucose Auto test strip (U) [Mass/Vol] Normal Normal Normal [facility] Comment on above: Performed By: #### 5 8077-9 #### JATINDER BURDICK ([id number]) [facility] ([facility]) [address] [place] [address] 66579 Ketones (U) [Mass/Vol] Negative [facility] Performed By: #### 5 8077-9 #### JATINDER BURDICK ([id number]) [facility] ([facility]) [address] [place] [address] 58897 Leukocyte esterase Auto test strip Ql (U) 75 Clarisa/???L Abnormal NEGATIVE [facility] Comment on above: Performed By: #### 5 8077-9 #### JATINDER BURDICK ([id number]) [facility] ([facility]) [address] [place] [address] Nitrite Auto test strip Ql (U) Negative Normal NEGATIVE [facility] Comment on above: Performed By: #### 5 8077-9 #### JATINDER BURDICK ([id number]) [facility] ([facility]) [address] [place] [address] pH (U) 6.0 [pH] Normal 5.0, 5.5, 6.0, 6.5, 7.0, 7.5, 8.0 [facility] Comment on above: Performed By: #### 5 8077-9 #### JATINDER BURDICK ([id number]) [facility] ([facility]) [address] [place] [address] 46361 Protein (U) [Mass/Vol] Negative Normal NEGAT EMANUEL, 10 (TRACE), 20 (TRACE) [facility] Comment on above: Performed By: #### 5 8077-9 #### JATINDER BURDICK ([id number]) [facility] ([facility]) [address] [place] [address] 47662 RBC (U) [#/Vol] 0.2 (2+) Abnormal NEGATIVE [facility] Comment on above: Performed By: #### 5 8077-9 #### JATINDER BURDICK ([id number]) [facility] ([facility]) [address] [place] [address] 59920 Specific gravity (U) [Rel density] 1.021 Normal 1.005-1.035 [facility] Comment on above: Performed By: #### 5 8077-9 #### JATINDER BURDICK ([id number]) [facility] ([facility]) [address] [place] [address] Urobilinogen (U) [Mass/Vol] Normal Normal Normal [facility] Comment on above: Performed By: #### 5 8077-9 #### JATINDER BURDICK ([id number]) [facility] ([facility]) [address] [place] [address] Urinalysis microscopic panel Auto Ql (U)on 03-06-2024 Bacteria Auto (Urine sed) [#/Area] 1+ Abnormal NONE SEEN /HPF [facility] Epithelial cells.squamous Auto (Urine sed) [#/Area] 1-9 (SPARSE) Reference range not established. /HPF [facility] Mucus Auto (Urine sed) [#/Area] FEW Reference range not established. /LPF [facility] RBC Auto (Urine sed) [#/Area] 6-10 Abnormal NONE, 1-2, 3-5 /HPF [facility] WBC Auto (Urine sed) [#/Area] 1-5 1-5, NONE /HPF [facility] Bacteria Auto (Urine sed) [#/Area] 1+ /HPF Abnormal NONE SEEN [facility] Comment on above: Performed By: #### 5 3315-8 #### JATINDER BURDICK ([id number]) [facility] ([facility]) [address] [place] [address] Epithelial cells.squamous Auto (Urine sed) [#/Area] 1-9 (SPARSE) Normal Reference range not established. [facility] Comment on above: Performed By: #### 5 3315-8 #### JATINDER BURDICK ([id number]) [facility] ([facility]) [address] [place] [address] Mucus Auto (Urine sed) [#/Area] FEW Normal Reference range not established. [facility] Comment on above: Performed By: #### 5 3315-8 #### JATINDER BURDICK ([id number]) [facility] ([facility]) [address] [place] [address] RBC Auto (Urine sed) [#/Area] 6-10 Abnormal NONE, 1-2, 3-5 [facility] Comment on above: Performed By: #### 5 3315-8 #### JATIDNER BURDICK ([id number]) [facility] ([facility]) [address] [place] [address] 29614 WBC Auto (Urine sed) [#/Area] 1-5 Normal 1-5, NONE [facility] Comment on above: Performed By: #### 5 3315-8 #### JATINDER BURDICK ([id number]) [facility] ([facility]) [address] [place] [address] 71343 CBC W Auto Differential pane l (Bld)on 11-30-2023 Basophils (Bld) [#/Vol] 0.05 x10*3/uL Normal 0.00-0.10 [facility] Comment on above: Performed By: #### 5 7021-8 #### JATINDER BURDICK ([id number]) [facility] ([facility]) [address] [place] [address] 60435 Basophils/100 WBC (Bld) 0.7 % Normal 0.0-2.0 U [facility] Comment on above: Performed By: #### 5 7021-8 #### JATINDER BURDICK ([id number]) [facility] ([facility]) [address] [place] [address] 85940 Eosinophils (Bld) [#/Vol] 0.23 x10*3/uL Normal 0.00-0.70 [facility] Comment on above: Performed By: #### 5 7021-8 #### JATINDER BURDICK ([id number]) [facility] ([facility]) [address] [place] [address] 18641 Eosinophils/100 WBC (Bld) 3.2 % Normal 0.0-6.0 [facility] Comment on above: Performed By: #### 5 7021-8 #### JATINDER BURDICK ([id number]) [facility] ([facility]) [address] [place] [address] 75349 Erythrocyte distribution width (RBC) [Ratio] 14.6 % High 11.5-14.5 [facility] Comment on above: Performed By: #### 5 7021-8 #### JATINDER BURDICK ([id number]) [facility] ([facility]) [address] [place] [address] 34794 Hematocrit (Bld) [Volume fraction] 43.1 % Normal 36.0-46.0 [facility] Comment on above: Performed By: #### 5 7021-8 #### JATINDER BURDICK ([id number]) [facility] ([facility]) [address] [place] [address] 16384 Hemoglobin (Bld) [Mass/Vol] 13.6 g/dL Normal 12.0-16.0 [facility] Comment on above: Performed By: #### 5 7021-8 #### JATINDER BURDICK ([id number]) [facility] ([facility]) [address] [place] [address] 69311 Immature granulocytes (Bld) [#/Vol] 0.02 x10*3/uL Normal 0.00-0.70 [facility] Comment on above: Performed By: #### 5 7021-8 #### JATINDER BURDICK ([id number]) [facility] ([facility]) [address] [place] [address] 16095 Immature granulocytes/100 WBC (Bld) 0.3 % Normal 0.0-0.9 [facility] Comment on above: Result Comment: Carole ture Granulocyte Count (IG) includes promyelocytes, myelocytes and metamyelocytes but does not include bands. Percent differential counts (%) should be interpreted in the context of the absolute cell counts (cells/UL). Performed By: #### 5 7021-8 #### JATINDER BURDICK ([id number]) [facility] ([facility]) [address] [place] [address] 89634 Lymphocytes (Bld) [#/Vol] 2.64 x10*3/uL Normal 1.20-4.80 [facility] Comment on above: Performed By: #### 5 7021-8 #### JATINDER BURDICK ([id number]) [facility] ([facility]) [address] [place] [address] 34135 Lymphocytes/100 WBC (Bld) 36.6 % Normal 13.0-44.0 [facility] Comment on above: Performed By: #### 5 7021-8 #### JATINDER BURDICK ([id number]) [facility] ([facility]) [address] [place] [address] 87658 MCH (RBC) [Entitic mass] 26.7 pg Normal 26.0-34.0 [facility] Comment on above: Performed By: #### 7021-8 #### JATINDER BURDICK ([id number]) [facility] ([facility]) [address] [place] [address] 74939 MCHC (RBC) [Mass/Vol] 31.6 g/dL Low 32.0-36.0 [facility] Comment on above: Performed By: #### 5 7021-8 #### JATINDER BURDICK ([id number]) [facility] ([facility]) [address] [place] [address] 21473 MCV (RBC) [Entitic vol] 85 fL Normal 80-100 U [facility] Comment on above: Performed By: #### 5 7021-8 #### JATINDER BURDICK ([id number]) [facility] ([facility]) [address] [place] [address] 74139 Monocytes (Bld) [#/Vol] 0.47 x10*3/uL Normal 0.10-1.00 [facility] Comment on above: Performed By: #### 5 7021-8 #### JATINDER BURDICK ([id number]) [facility] ([facility]) [address] [place] [address] 63937 Monocytes/100 WBC (Bld) 6.5 % Normal 2.0-10.0 [facility] Comment on above: Performed By: #### 5 7021-8 #### JATINDER BURDICK ([id number]) [facility] ([facility]) [address] [place] [address] 76443 Neutrophils (Bld) [#/Vol] 3.80 x10*3/uL Normal 1.20-7.70 [facility] Comment on above: Result Comment: Perc ent differential counts (%) should be interpreted in the context of the absolute cell counts (cells/uL). Performed By: #### 5 7021-8 #### JATINDER BURDICK ([id number]) [facility] ([facility]) [address] [place] [address] 16978 Neutrophils/100 WBC (Bld) 52.7 % Normal 40.0-80.0 [facility] Comment on above: Performed By: #### 5 7021-8 #### JATINDER BURDICK ([id number]) [facility] ([facility]) [address] [place] [address] 27532 Nucleated RBC/100 WBC (Bld) [Ratio] 0.0 /100 WBCs Normal 0.0-0.0 [facility] Comment on above: Performed By: #### 5 7021-8 #### JATINDER BURDICK ([id number]) [facility] ([facility]) [address] [place] [address] 60196 Platelets (Bld) [#/Vol] 301 x10*3/uL Normal 150-450 [facility] Comment on above: Performed By: #### 5 7021-8 #### JATINDER BURDICK ([id number]) [facility] ([facility]) [address] [place] [address] 51028 RBC (Bld) [#/Vol] 5.10 x10*6/uL Normal 4.00-5.20 [facility] Comment on above: Performed By: #### 5 7021-8 #### JATINDER BURDICK ([id number]) [facility] ([facility]) [address] [place] [address] 77990 WBC (Bld) [#/Vol] 7.2 x10*3/uL Normal 4.4-11.3 [facility] Comment on above: Performed By: #### 5 7021-8 #### JATINDER BURDICK ([id number]) [facility] ([facility]) [address] [place] [address] 48170 Calcidiolon 11-30-2023 25-hydroxyvitamin D3 [Mass/Vol] 30 ng/mL Normal 30-100 [facility] Comment on above: Order Comment: Defic iency: < 20 ng/mlInsufficiency: 20-29 ng/mlSufficiency: 30-100 ng/mlThis assay accurately quantifies the sum of Vitamin D3, 25-Hydroxy and Vitamin D2,25-Hydroxy. Performed By: #### 2 4331-1 #### JATINDER BURDICK ([id number]) [facility] ([facility]) [address] [place] [address] 85624 Ferritinon 11-30-2023 Ferritin [Mass/Vol] 20 ng/mL Normal 8-150 [facility] Comment on above: Performed By: #### 2 276-4 #### JATINDER BURDICK ([id number]) [facility] ([facility]) [address] [place] [address] 47414 Iron and Iron binding capaci ty panelon 11-30-2023 Iron [Mass/Vol] 62 ug/dL Normal 35-150 [facility] Comment on above: Performed By: #### 5 0190-8 #### JATINDER BURDICK ([id number]) [facility] ([facility]) [address] [place] [address] 61895 Iron binding capacity [Mass/Vol] 365 ug/dL Normal 240-445 [facility] Comment on above: Performed By: #### 5 0190-8 #### JATINDER BURDICK ([id number]) [facility] ([facility]) [address] [place] [address] 46658 Iron binding capacity.unsaturated [Mass/Vol] 303 ug/dL Normal 110-370 [facility] Comment on above: Performed By: #### 5 0190-8 #### JATINDER BURDICK ([id number]) [facility] ([facility]) [address] [place] [address] 26393 Iron saturation [Mass fraction] 17 % Low 25-45 [facility] Comment on above: Performed By: #### 5 0190-8 #### JATINDER BURDICK ([id number]) [facility] ([facility]) [address] [place] [address] 03173 CBC W Auto Differential pane l (Bld)on 09-11-2023 Basophils (Bld) [#/Vol] 0.04 x10*3/uL Normal 0.00-0.10 [facility] Comment on above: Performed By: #### 5 7021-8 #### JATINDER BURDICK ([id number]) [facility] ([facility]) [address] [place] [address] 56806 Basophils/100 WBC (Bld) 0.6 % Normal 0.0-2.0 U [facility] Comment on above: Performed By: #### 7021-8 #### JATINDER BURDICK ([id number]) [facility] ([facility]) [address] [place] [address] 07360 Eosinophils (Bld) [#/Vol] 0.18 x10*3/uL Normal 0.00-0.70 [facility] Comment on above: Performed By: #### 70-8 #### JATINDER BURDICK ([id number]) [facility] ([facility]) [address] [place] [address] 88568 Eosinophils/100 WBC (Bld) 2.8 % Normal 0.0-6.0 [facility] Comment on above: Performed By: #### 7021-8 #### JATINDER BURDICK ([id number]) [facility] ([facility]) [address] [place] [address] 36731 Erythrocyte distribution width (RBC) [Ratio] 14.2 % Normal 11.5-14.5 [facility] Comment on above: Performed By: #### 5 7021-8 #### JATINDER BURDICK ([id number]) [facility] ([facility]) [address] [place] [address] 49335 Hematocrit (Bld) [Volume fraction] 39.9 % Normal 36.0-46.0 [facility] Comment on above: Performed By: #### 5 7021-8 #### JATINDER BURDICK ([id number]) [facility] ([facility]) [address] [place] [address] 74265 Hemoglobin (Bld) [Mass/Vol] 12.4 g/dL Normal 12.0-16.0 [facility] Comment on above: Performed By: #### 5 7021-8 #### JATINDER BURDICK ([id number]) [facility] ([facility]) [address] [place] [address] 52512 Immature granulocytes (Bld) [#/Vol] 0.01 x10*3/uL Normal 0.00-0.70 [facility] Comment on above: Performed By: #### 5 7021-8 #### JATINDER BURDICK ([id number]) [facility] ([facility]) [address] [place] [address] 64338 Immature granulocytes/100 WBC (Bld) 0.2 % Normal 0.0-0.9 [facility] Comment on above: Result Comment: Carole ture Granulocyte Count (IG) includes promyelocytes, myelocytes and metamyelocytes but does not include bands. Percent differential counts (%) should be interpreted in the context of the absolute cell counts (cells/UL). Performed By: #### 5 7021-8 #### JATINDER BURDICK ([id number]) [facility] ([facility]) [address] [place] [address] 24439 Lymphocytes (Bld) [#/Vol] 2.22 x10*3/uL Normal 1.20-4.80 [facility] Comment on above: Performed By: #### 5 7021-8 #### JATINDER BURDICK ([id number]) [facility] ([facility]) [address] [place] [address] 97105 Lymphocytes/100 WBC (Bld) 34.0 % Normal 13.0-44.0 [facility] Comment on above: Performed By: #### 5 7021-8 #### JATINDER BURDICK ([id number]) [facility] ([facility]) [address] [place] [address] 09105 MCH (RBC) [Entitic mass] 25.3 pg Low 26.0-34.0 [facility] Comment on above: Performed By: #### 5 7021-8 #### JATINDER BURDICK ([id number]) [facility] ([facility]) [address] [place] [address] 51435 MCHC (RBC) [Mass/Vol] 31.1 g/dL Low 32.0-36.0 [facility] Comment on above: Performed By: #### 5 7021-8 #### JATINDER BURDICK ([id number]) [facility] ([facility]) [address] [place] [address] [id number] MCV (RBC) [Entitic vol] 81 fL Normal 80-100 [facility] Comment on above: Performed By: #### 5 7021-8 #### JATINDER BURDICK ([id number]) [facility] ([facility]) [address] [place] [address] [id number] Monocytes (Bld) [#/Vol] 0.39 x10*3/uL Normal 0.10-1.00 [facility] Comment on above: Performed By: #### 5 7021-8 #### JATINDER BURDICK ([id number]) [facility] ([facility]) [address] [place] [address] [phone] Monocytes/100 WBC (Bld) 6.0 % Normal 2.0-10.0 [facility] Comment on above: Performed By: #### 5 7021-8 #### JATINDER BURDICK ([id number]) [facility] ([facility]) [address] [place] [address] [id number] Neutrophils (Bld) [#/Vol] 3.68 x10*3/uL Normal 1.20-7.70 [facility] Comment on above: Result Comment: Perc ent differential counts (%) should be interpreted in the context of the absolute cell counts (cells/uL). Performed By: #### 5 7021-8 #### JATINDER BURDICK ([id number]) [facility] ([facility]) [address] [place] [address] [id number] Neutrophils/100 WBC (Bld) 56.4 % Normal 40.0-80.0 [facility] Comment on above: Performed By: #### 5 7021-8 #### JATINDER BURDICK ([id number]) [facility] ([facility]) [address] [place] [address] [phone] Nucleated RBC/100 WBC (Bld) [Ratio] 0.0 /100 WBCs Normal 0.0-0.0 [facility] Comment on above: Performed By: #### 5 7021-8 #### JATINDER BURDICK ([id number]) [facility] - [place] [address] [place] [address] 72064 Platelets (Bld) [#/Vol] 308 x10*3/uL Normal 150-450 [facility] Comment on above: Performed By: #### 5 7021-8 #### JATINDER BURDICK ([id number]) [facility] ([facility]) [address] [place] [address] 98817 RBC (Bld) [#/Vol] 4.91 x10*6/uL Normal 4.00-5.20 [facility] Comment on above: Performed By: #### 5 7021-8 #### JATINDER BURDICK ([id number]) [facility] ([facility]) [address] [place] [address] 18813 WBC (Bld) [#/Vol] 6.5 x10*3/uL Normal 4.4-11.3 [facility] Comment on above: Performed By: #### 5 7021-8 #### JATINDER BURDICK ([id number]) [facility] ([facility]) [address] [place] [address] Calcidiolon 09-11-2023 25-hydroxyvitamin D3 [Mass/Vol] 21 ng/mL Low 30-100 [facility] Comment on above: Order Comment: Defic iency: < 20 ng/ml Insufficiency: 20-29 ng/ml Sufficiency: 30-100 ng/ml This assay accurately quantifies the sum of Vitamin D3, 25-Hydroxy and Vitamin D2,25-Hydroxy. Performed By: #### 1 989-3 #### JATINDER BURDICK ([id number]) [facility] ([facility]) [address] [place], [place] [address] Comprehensive metabolic 2000 panelon 09-11-2023 Albumin BCP dye [Mass/Vol] 4.2 g/dL Normal 3.4-5.0 [facility] Comment on above: Performed By: #### 2 4323-8 #### JATINDER BURDICK ([id number]) [facility] ([facility]) [address] [place] [address] 09334 ALP [Catalytic activity/Vol] 80 U/L Normal 33-110 [facility] Comment on above: Performed By: #### 2 4323-8 #### JATINDER BURDICK ([id number]) [facility] ([facility]) [address] [place] [address] ALT With P-5'-P [Catalytic activity/Vol] 19 U/L Normal 7-45 [facility] Comment on above: Result Comment: Cecilia ents treated with Sulfasalazine may generate falsely decreased results for ALT. Performed By: #### 2 4323-8 #### JATINDER BURDICK ([id number]) [facility] ([facility]) [address] [place] [address] Anion gap [Moles/Vol] 10 mmol/L Normal 10-20 [facility] Comment on above: Performed By: #### 2 432-8 #### JATINDER BURDICK ([id number]) [facility] ([facility]) [address] [place] [address] AST With P-5'-P [Catalytic activity/Vol] 17 U/L Normal 9-39 [facility] Comment on above: Performed By: #### 2 432-8 #### JATINDER BURDICK ([id number]) [facility] ([facility]) [address] [place] [address] Bilirubin [Mass/Vol] 0.4 mg/dL Normal 0.0-1.2 [facility] Comment on above: Performed By: #### 2 4323-8 #### JATINDER BURDICK ([id number]) [facility] ([facility]) [address] [place] [address] Calcium [Mass/Vol] 9.1 mg/dL Normal 8.6-10.3 [facility] Comment on above: Performed By: #### 2 4323-8 #### JATINDER BURDICK ([id number]) [facility] ([facility]) [address] [place] [address] 28171 Chloride [Moles/Vol] 104 mmol/L Normal 98-107 [facility] Comment on above: Performed By: #### 2 4323-8 #### JATINDER BURDICK ([id number]) [facility] ([facility]) [address] [place] [address] CO2 [Moles/Vol] 28 mmol/L Normal 21-32 [facility] Comment on above: Performed By: #### 2 4323-8 #### JATINDER BURDICK ([id number]) [facility] ([facility]) [address] [place] [address] 69948 Creatinine [Mass/Vol] 0.77 mg/dL Normal 0.50-1.05 [facility] Comment on above: Performed By: #### 2 4323-8 #### JATINDER BURDICK ([id number]) [facility] ([facility]) [address] [place] [address] 13290 GFR/1.73 sq M.predicted MDRD (S/P/Bld) [Vol rate/Area] mL/min/{1.73_m2} Normal >60 [facility] Comment on above: Result Comment: Calc ulations of estimated GFR are performed using the 2020 CKD-EPI Study Refit equation without the race variable for the IDMS-Traceable creatinine methods. https://jasn.asnjournals.org/content/early//ASN.2020 271281 Performed By: #### 2 4323-8 #### JATINDER BURDICK ([id number]) [facility] ([facility]) [address] [place] [address] 94028 Glucose [Mass/Vol] 91 mg/dL Normal 74-99 [facility] Comment on above: Performed By: #### 2 4323-8 #### JATINDER BURDICK ([id number]) [facility] ([facility]) [address] [place] [address] 51559 Potassium [Moles/Vol] 4.0 mmol/L Normal 3.5-5.3 [facility] Comment on above: Performed By: #### 2 4323-8 #### JATINDER BURDICK ([id number]) [facility] ([facility]) [address] [place] [address] 24044 Protein [Mass/Vol] 6.7 g/dL Normal 6.4-8.2 [facility] Comment on above: Performed By: #### 2 4323-8 #### JATINDER BURDICK ([id number]) [facility] ([facility]) [address] [place] [address] 21241 Sodium [Moles/Vol] 138 mmol/L Normal 136-145 [facility] Comment on above: Performed By: #### 2 4323-8 #### JATINDER BURDICK ([id number]) [facility] ([facility]) [address] [place] [address] 53675 Urea nitrogen [Mass/Vol] 8 mg/dL Normal 6-23 [facility] Comment on above: Performed By: #### 2 4323-8 #### JATINDER BURDICK ([id number]) [facility] ([facility]) [address] [place], [place] [address] Ferritinon 09-11-2023 Ferritin [Mass/Vol] 9 ng/mL Normal 8-150 [facility] Comment on above: Performed By: #### 2 276-4 #### JATINDER BURDICK ([id number]) [facility] ([facility]) [address] [place], [place] [address] HbA1c (Bld) [Mass fraction]o n 09-11-2023 Average glucose Estimated from glycated hemoglobin (Bld) [Mass/Vol] 111 mg/dL Normal Not Established [facility] Comment on above: Order Comment: Diagn osis of Diabetes-Adults Non-Diabetic: < or = 5.6% Increased risk for developing diabetes: 5.7-6.4% Diagnostic of diabetes: > or = 6.5% Performed By: #### 4 548-4 #### JATINDER BURDICK ([id number]) [facility] ([facility]) [address] [place] [address] 48432 Hemoglobin A1c/Hemoglobin.to marko 09-11-2023 HbA1c (Bld) [Mass fraction] 5.5 % Normal see below [facility] Comment on above: Order Comment: Diagn osis of Diabetes-Adults Non-Diabetic: < or = 5.6% Increased risk for developing diabetes: 5.7-6.4% Diagnostic of diabetes: > or = 6.5% Performed By: #### 4 548-4 #### JATINDER BURDICK ([id number]) [facility] ([facility]) [address] [place] [address] Iron and Iron binding capaci ty panelon 09-11-2023 Iron [Mass/Vol] 75 ug/dL Normal 35-150 [facility] Comment on above: Performed By: #### 5 0190-8 #### JATINDER BURDICK ([id number]) [facility] ([facility]) [address] [place] [address] Iron binding capacity [Mass/Vol] 409 ug/dL Normal 240-445 [facility] Comment on above: Performed By: #### 5 0190-8 #### JATINDER BURDICK ([id number]) [facility] ([facility]) [address] [place] [address] 65793 Iron binding capacity.unsaturated [Mass/Vol] 334 ug/dL Normal 110-370 [facility] Comment on above: Performed By: #### 5 0190-8 #### JATINDER BURDICK ([id number]) [facility] ([facility]) [address] [place] [address] 65451 Iron saturation [Mass fraction] 18 % Low 25-45 [facility] Comment on above: Performed By: #### 5 0190-8 #### JATINDER BURDICK ([id number]) [facility] ([facility]) [address] [place] [address] 74199 Lipid 1996 panelon Cholesterol [Mass/Vol] 172 mg/dL Normal 0-199 [facility] Comment on above: Result Comment: Age [...] to Metamizole dosing. Performed By: #### 2 2121-1 #### JATINDER BURDICK ([id number]) [facility] ([facility]) [facility] [place] [address] Cholesterol in HDL [Mass/Vol] 49.0 mg/dL Normal [facility] Comment on above: Result Comment: Age Very Low Low Normal High 0-19 Y < 35 < 40 40-45 ---- 20-24 Y ---- < 40 >45 ---- >24 Y ---- < 40 40-60 >60 Performed By: #### 2 4331-1 #### JATINDER BURDICK ([id number]) [facility] ([facility]) [address] [place] [address] 36672 Cholesterol in LDL [Mass/Vol] 101 mg/dL Normal <=119 [facility] Comment on above: Result Comment: Near Borderline AGE Desirable Optimal High High Very High 0-19 Y 0 - 109 --- 110-129 >/= 130 ---- 20-24 Y 0 - 119 --- 120-159 >/= 160 ---- >24 Y 0 - 99 100-129 130-159 160-189 >/=190 Performed By: #### 2 4331-1 #### JATINDER BURDICK ([id number]) [facility] ([facility]) [address] [place] [address] 52863 Cholesterol in VLDL [Mass/Vol] 22 mg/dL Normal 0-40 [facility] Comment on above: Performed By: #### 2 4331-1 #### JATINDER BURDICK ([id number]) [facility] ([facility]) [address] [place] [address] 73805 CHOLESTEROL/HDL RATIO 3.5 Normal [facility] Comment on above: Result Comment: Ref Values Desirable < 3.4 High Risk > 5.0 Performed By: #### 2 4331-1 #### JATINDER BURDICK ([id number]) [facility] ([facility]) [address] [place] [address] 53603 NON HDL CHOLESTEROL 123 mg/dL Normal 0-149 [facility] Comment on above: Result Comment: Age Desirable Borderline High High Very High 0-19 Y 0 - 119 120 - 144 >/= 145 >/= 160 20-24 Y 0 - 149 150 - 189 >/= 190 ---- >24 Y 30 mg/dL above LDL Cholesterol goal Performed By: #### 2 4331-1 #### JATINDER BURDICK ([id number]) [facility] ([facility]) [facility] [place] [address] Triglyceride [Mass/Vol] 112 mg/dL Normal 0-149 [facility] Comment on above: Result Comment: [...] By: #### 2 4331-1 #### JATINDER BURDICK ([id number]) [facility] ([facility]) [address] [place], [place] [address] Carboxy tetrahydrocannabinol (U) [Mass/Vol]on 05-19-2023 [facility] THC (Marijuana), Urine, Conf irmationon 05-19-2023 Carboxy tetrahydrocannabinol (U) [Mass/Vol] 25 ng/mL [facility] Comment on above: INTERPRETIVE INFORMA TION: THC Metabolite, Urine, Quantitative Methodology: Quantitative Liquid Chromatography-Tandem Mass Spectrometry Positive cutoff: 15 ng/mL For medical purposes only; not valid for forensic use. The drug analyte detected in this assay, 9-carboxy THC, is a metabolite of exgxn-0-mjetkaavwvmbfvohdwqt (THC). Detection of 9-carboxy THC suggests use [...] developed and its performance characteristics determined by [employer]. It has not been cleared or approved by the US Food and Drug Administration. This test was performed in a CLIA certified laboratory and is intended for clinical purposes. Performed By: [employer] [address] [place] [address] Infectious Disease Physician: Luis Fernando Paz MD, PhD CLIA Number: [id number] Carboxy tetrahydrocannabinol on 05-15-2023 Carboxy tetrahydrocannabinol (U) [Mass/Vol] 25 ng/mL [facility] Comment on above: Result Comment: INTE RPRETIVE INFORMATION: THC Metabolite, Urine, Quantitative Methodology: Quantitative Liquid Chromatography-Tandem Mass Spectrometry Positive cutoff: 15 ng/mL For medical purposes only; not valid for forensic use. The drug analyte detected in this assay, 9-carboxy THC, is a metabolite of wihvu-6-hssynsgfgvgxznrljrfo (THC). Detection of 9-carboxy THC suggests use [...] developed and its performance characteristics determined by [employer]. It has not been cleared or approved by the US Food and Drug Administration. This test was performed in a CLIA certified laboratory and is intended for clinical purposes. Performed By: [employer] [address] [place] [address] Infectious Disease Physician: Luis Fernando Paz MD, PhD CLIA Number: [id number] Performed By: #### 3 436-3 #### [facility] ([facility]) ([id number]) [address] [place], [place] [id number] Drugs of abuse screen W Refl ex confirm panel (U)on 05-15-2023 Amphetamines Screen Ql (U) Negative Presumptive Negative [facility] Comment on above: CUTOFF LEVEL: 500 NG /ML Cross-reactivity has been reported with high concentrations of the following drugs: buproprion, chloroquine, chlorpromazine, ephedrine, mephentermine, fenfluramine, phentermine, phenylpropanolamine, pseudoephedrine, and propranolol. Barbiturates Screen Ql (U) Negative Presumptive Negative [facility] Comment on above: CUTOFF LEVEL: 200 NG /ML Benzodiazepines Ql (U) Negative Presu mptive Negative [facility] Comment on above: CUTOFF LEVEL: 200 NG /ML Benzoylecgonine Screen Ql (U) Negative Presumptive Negative [facility] Comment on above: CUTOFF LEVEL: 150 NG /ML Cannabinoids Screen Ql (U) Positive Abnormal Presumptive Negative [facility] Comment on above: CUTOFF LEVEL: 50 NG/ ML fentaNYL+Norfentanyl Screen Ql (U) Negative Presumptive Negative [facility] Comment on above: CUTOFF LEVEL: 5 NG/M L Interpretation and review of laboratory results Abnormal [facility] Methadone Screen Ql (U) Negative Pres umptive Negative [facility] Comment on above: CUTOFF LEVEL: 150 NG /ML The metabolite Y-mtdto-qvdvoimwmlcwxi (LAAM) is not detected by this method in concentrations that would be found in the urine of patients on LAAM therapy. Opiates Screen Ql (U) Negative Presum ptive Negative [facility] Comment on above: CUTOFF LEVEL: 300 NG /ML The opiate screen does not detect fentanyl, meperidine, or tramadol. Oxycodone is not consistently detected (refer to Oxycodone Screen, Urine result). oxyCODONE+oxyMORphone Screen Ql (U) Negative Presumptive Negative [facility] Comment on above: CUTOFF LEVEL: 100 NG /ML This test will accurately detect both oxycodone and oxymorphone. Phencyclidine Ql (U) Negative Presump tive Negative [facility] Comment on above: CUTOFF LEVEL: 25 NG/ [...] be directed to the laboratory medical directors. [facility] Amphetamines Screen Ql (U) Negative Normal Presumptive Negative [facility] Comment on above: Order Comment: [...] By: #### 8 7428-9 #### TOBIAS GENNARO ([id number]) [facility] ([facility]) [address] [place] [address] Barbiturates Screen Ql (U) Negative Normal Presumptive Negative [facility] Comment on above: Order Comment: [...] By: #### 8 7428-9 #### JATINDER BURDICK ([id number]) [facility] ([facility]) [address] [place] [address] Benzodiazepines Ql (U) Negative Normal Presu mptive Negative [facility] Comment on above: Order Comment: [...] By: #### 8 7428-9 #### JATINDER BURDICK ([id number]) [facility] ([facility]) [address] [place], [place] [address] Benzoylecgonine Screen Ql (U) Negative Normal Presumptive Negative [facility] Comment on above: Order Comment: [...] By: #### 8 7428-9 #### JATINDER BURDICK ([id number]) [facility] ([facility]) [address] [place] [address] Cannabinoids Screen Ql (U) Positive Abnormal Presumptive Negative [facility] Comment on above: Order Comment: [...] By: #### 8 7428-9 #### JATINDER BURDICK ([id number]) [facility] ([facility]) [address] [place] [address] fentaNYL+Norfentanyl Screen Ql (U) Negative Normal Presumptive Negative [facility] Comment on above: Order Comment: [...] By: #### 8 7428-9 #### JATINDER BURDICK ([id number]) [facility] ([facility]) [address] [place] [address] Methadone Screen Ql (U) Negative Normal Pres umptive Negative [facility] Comment on above: Order Comment: [...] CUTO FF LEVEL: 150 NG/ML The metabolite F-nksvm-ypclbhjfmordqm (LAAM) is not detected by this method in concentrations that would be found in the urine of patients on LAAM therapy. Performed By: #### 8 7428-9 #### JATINDER BURDICK ([id number]) [facility] ([facility]) [address] [place] [address] Opiates Screen Ql (U) Negative Normal Presum ptive Negative [facility] Comment on above: Order Comment: [...] result). Performed By: #### 8 7428-9 #### TOBIAS GENNARO ([id number]) [facility] ([facility]) [address] [place], [place] [address] oxyCODONE+oxyMORphone Screen Ql (U) Negative Normal Presumptive Negative [facility] Comment on above: Order Comment: [...] By: #### 8 7428-9 #### JATINDER BURDICK ([id number]) [facility] ([facility]) [address] [place] [address] Phencyclidine Ql (U) Negative Normal Presump tive Negative [facility] Comment on above: Order Comment: [...] dextromethorphan. Performed By: #### 8 7428-9 #### JATINDER BURDICK ([id number]) [facility] ([facility]) [address] [place], [place] [address] CBC AND DIFFERENTIALon 05-30 % AUTOMATED IMMATURE GRAN 0.2 % Normal 0.0 - 0.9 [facility] [place] [facility] Comment on above: Result Comment: Carole ture Granulocyte Count (IG) includes promyelocytes, myelocytes and metamyelocytes but does not include bands. Percent differential counts (%) should be interpreted in the context of the absolute cell counts (cells/L). Performed By: #### C BCDF #### [address] [address] Basophils (Bld) [#/Vol] 0.02 10*3/uL Normal 0.00 - 0.1 0 [facility] [place] Comment on above: Performed By: #### C BCDF #### [address] [address] Basophils/100 WBC (Bld) 0.4 % Normal 0.0 - 2.0 [facility] Comment on above: Performed By: #### C BCDF #### [address] [address] Eosinophils (Bld) [#/Vol] 0.08 10*3/uL Normal 0.00 - 0.70 [facility] [place] Comment on above: Performed By: #### C BCDF #### [address] [address] Eosinophils/100 WBC (Bld) 1.4 % Normal 0.0 - 6.0 [facility] [place] Comment on above: Performed By: #### C BCDF #### [address] [address] Erythrocyte distribution width (RBC) [Ratio] 15.0 % High 11.5 - 14.5 [facility] [place] Comment on above: Performed By: #### C BCDF #### [address] [address] Hematocrit (Bld) [Volume fraction] 41.0 % Normal 36.0 - 46.0 [facility] [place] Comment on above: Performed By: #### C BCDF #### [address] [address] Hemoglobin (Bld) [Mass/Vol] 13.1 g/dL Normal 12.0 - 16.0 [facility] [place] Comment on above: Performed By: #### C BCDF #### [address] [address] Lymphocytes (Bld) [#/Vol] 2.13 10*3/uL Normal 1.20 - 4.80 [facility] [place] Comment on above: Performed By: #### C BCDF #### [address] [address] Lymphocytes/100 WBC (Bld) 38.3 % Normal 13.0 - 44.0 [facility] [place] Comment on above: Performed By: #### C BCDF #### [address] [address] MCHC (RBC) [Mass/Vol] 32.0 g/dL Normal 32.0 - 36.0 [facility] [place] Comment on above: Performed By: #### C BCDF #### [address] [address] MCV (RBC) [Entitic vol] 81 fL Normal 80 - 100 [facility] Comment on above: Performed By: #### C BCDF #### [address] [address] Monocytes (Bld) [#/Vol] 0.33 10*3/uL Normal 0.10 - 1.0 0 [facility] [place] Comment on above: Performed By: #### C BCDF #### [address] [address] Monocytes/100 WBC (Bld) 5.9 % Normal 2.0 - 10.0 [facility] Comment on above: Performed By: #### C BCDF #### [address] [address] Neutrophils (Bld) [#/Vol] 2.99 10*3/uL Normal 1.20 - 7.70 [facility] [place] Comment on above: Result Comment: Perc ent differential counts (%) should be interpreted in the context of the absolute cell counts (cells/L). Performed By: #### C BCDF #### [address] [address] Neutrophils/100 WBC (Bld) 53.8 % Normal 40.0 - 80.0 [facility] [place] Comment on above: Performed By: #### C BCDF #### [address] [address] Platelets (Bld) [#/Vol] 271 10*3/uL Normal 150 - 450 [facility] [place] Comment on above: Performed By: #### C BCDF #### [address] [address] RBC 5.04 x10E12/L Normal 4.00 - 5.20 [facility] Comment on above: Performed By: #### C BCDF #### [address] [address] WBC (Bld) [#/Vol] 5.6 10*3/uL Normal 4.4 - 11.3 [facility] Comment on above: Performed By: #### C BCDF #### [address] [address] FERRITINon 05-30-2022 FERRITIN 20 ug/L Normal 8 - 150 [facility] [place] Comment on above: Performed By: #### F ERRI #### [address] [address] HEMOGLOBIN A1Con 05-30-2022 Glucose [Mass/Vol] 100 mg/dL Normal [facility] Comment on above: Performed By: #### L IPID #### [address] [address] HbA1c (Bld) [Mass fraction] 5.1 % Normal [facility] [place] Comment on above: Result Comment: Diag nosis of Diabetes-Adults Non-Diabetic: < or = 5.6% Increased risk for developing diabetes: 5.7-6.4% Diagnostic of diabetes: > or = 6.5% . Monitoring of Diabetes Age (y) Therapeutic Goal (%) Adults: >18 <7.0 Pediatrics: 13-18 <7.5 7-12 <8.0 0- 6 7.5-8.5 [employer]. Diabetes Care 33(S1), Mar 2009. Performed By: #### L IPID #### [address] [address] IRON + TIBCon 05-30-2022 % SATURATION 27 % Normal 25 - 45 [facility] [place] Comment on above: Performed By: #### L IPID #### [address] [address] Iron [Mass/Vol] 106 ug/dL Normal 35 - 150 [facility] Comment on above: Performed By: #### L IPID #### [address] [address] TIBC 388 ug/dL Normal 240 - 445 [facility] [place] Comment on above: Performed By: #### L IPID #### [address] [address] VITAMIN D, 25-HYDROXYon 05-11 VITAMIN D, 25-HYDROXY 25 ng/mL Abnormal [facility] [place] Comment on above: Result Comment: . DEFICIENCY: < 20 NG/ML INSUFFICIENCY: 20-29 NG/ML SUFFICIENCY: 30-100 NG/ML THIS ASSAY ACCURATELY QUANTIFIES THE SUM OF VITAMIN D3, 25-HYDROXY AND VIT D2,25-HYDROXY. Performed By: #### V TDOH #### [address] [address] Office Visit (Primary Care F orms)on 03-23-2022 [...] Anxiety; JOYCE = N; Verified Transmission to [facility]; Last Updated By: Cipriano Casas; 03/23/2022 2:41:49 PM Elevated fasting glucose Hemoglobin [...] History Problems History of section History of Kohler tooth extraction Family History Mother Family history [...] 1 tablet daily Vitamin D3 50 MCG (1999) Oral TabletTake 1 tablet daily Allergies Medication No Known Drug Allergies Recorded By: Rosa Sanches; 03/09/2022 10:58:45 AM Vitals Vital Signs Recorded: 23Mar2022 02:29PM Heart Rate92 Vfbjvjvs865 Xkyzrfglq65 Height5 ft 7 in Rrezdv675 lb BMI Prwjrtavlr88.06 kg/m2 BSA Calculated2.2 Tobacco Usea) Yes Physical Exam Constitutional - Well developed, well no (more content not included)... Normal [employer] Tobacco Screening.on 023 Tobacco use status CPHS a) Yes [facility] 205 DO Work Phone: FERRITINon 03-15-2022 FERRITIN 17 ug/L Normal 8 - 150 [facility] [place] Comment on above: Performed By: #### F ERRI #### [address] [address] IRON + TIBCon 03-15-2022 % SATURATION 9 % Low 25 - 45 [facility] [place] Comment on above: Performed By: #### I RONT #### [address] [address] Iron [Mass/Vol] 37 ug/dL Normal 35 - 150 [facility] Comment on above: Performed By: #### I RONT #### [address] [address] TIBC 417 ug/dL Normal 240 - 445 [facility] [place] Comment on above: Performed By: #### I RONT #### [address] [address] CBC AND DIFFERENTIALon 03-14 % AUTOMATED IMMATURE GRAN 0.2 % Normal 0.0 - 0.9 [facility] [place] Comment on above: Result Comment: Carole ture Granulocyte Count (IG) includes promyelocytes, myelocytes and metamyelocytes but does not include bands. Percent differential counts (%) should be interpreted in the context of the absolute cell counts (cells/L). Performed By: #### L IPID #### [address] [address] Basophils (Bld) [#/Vol] 0.05 10*3/uL Normal 0.00 - 0.1 0 [facility] [place] Comment on above: Performed By: #### L IPID #### [address] [address] Basophils/100 WBC (Bld) 0.8 % Normal 0.0 - 2.0 [facility] Comment on above: Performed By: #### L IPID #### [address] [address] Eosinophils (Bld) [#/Vol] 0.14 10*3/uL Normal 0.00 - 0.70 [facility] [place] Comment on above: Performed By: #### L IPID #### [address] [address] Eosinophils/100 WBC (Bld) 2.1 % Normal 0.0 - 6.0 [facility] [place] Comment on above: Performed By: #### L IPID #### [address] [address] Erythrocyte distribution width (RBC) [Ratio] 14.0 % Normal 11.5 - 14.5 [facility] [place] Comment on above: Performed By: #### L IPID #### [address] [address] Hematocrit (Bld) [Volume fraction] 41.2 % Normal 36.0 - 46.0 [facility] [place] Comment on above: Performed By: #### L IPID #### [address] [address] Hemoglobin (Bld) [Mass/Vol] 13.1 g/dL Normal 12.0 - 16.0 [facility] [place] Comment on above: Performed By: #### L IPID #### [address] [address] Lymphocytes (Bld) [#/Vol] 2.38 10*3/uL Normal 1.20 - 4.80 [facility] [place] Comment on above: Performed By: #### L IPID #### [address] [place] [address] Lymphocytes/100 WBC (Bld) 36.1 % Normal 13.0 - 44.0 [facility] [place] Comment on above: Performed By: #### L IPID #### [address] [address] MCHC (RBC) [Mass/Vol] 31.8 g/dL Low 32.0 - 36.0 [facility] [place] Comment on above: Performed By: #### L IPID #### [address] [address] MCV (RBC) [Entitic vol] 78 fL Low 80 - 100 [facility] Comment on above: Performed By: #### L IPID #### [address] [address] Monocytes (Bld) [#/Vol] 0.41 10*3/uL Normal 0.10 - 1.0 0 [facility] [place] Comment on above: Performed By: #### L IPID #### [address] [address] Monocytes/100 WBC (Bld) 6.2 % Normal 2.0 - 10.0 [facility] Comment on above: Performed By: #### L IPID #### [address] [address] Neutrophils (Bld) [#/Vol] 3.60 10*3/uL Normal 1.20 - 7.70 [facility] [place] Comment on above: Result Comment: Perc ent differential counts (%) should be interpreted in the context of the absolute cell counts (cells/L). Performed By: #### L IPID #### [address] [address] Neutrophils/100 WBC (Bld) 54.6 % Normal 40.0 - 80.0 [facility] [place] Comment on above: Performed By: #### L IPID #### [address] [address] Platelets (Bld) [#/Vol] 325 10*3/uL Normal 150 - 450 [facility] [place] Comment on above: Performed By: #### L IPID #### [address] [address] RBC 5.30 x10E12/L High 4.00 - 5.20 [facility] Comment on above: Performed By: #### L IPID #### [address] [address] WBC (Bld) [#/Vol] 6.6 10*3/uL Normal 4.4 - 11.3 [facility] Comment on above: Performed By: #### L IPID #### [address] [address] COMPREHENSIVE PANELon 2022 Albumin [Mass/Vol] 4.3 g/dL Normal 3.4 - 5.0 [facility] Comment on above: Performed By: #### C MP #### [address] [address] ALP [Catalytic activity/Vol] 83 U/L Normal 33 - 110 [facility] [place] Comment on above: Performed By: #### C MP #### [address] [address] ALT [Catalytic activity/Vol] 17 U/L Normal 7 - 45 [facility] [place] Comment on above: Result Comment: Cecilia ents treated with Sulfasalazine may generate falsely decreased results for ALT. Performed By: #### C MP #### [address] [address] Anion gap [Moles/Vol] 10 mmol/L Normal 10 - 20 [facility] [place] Comment on above: Performed By: #### C MP #### [address] [address] AST [Catalytic activity/Vol] 16 U/L Normal 9 - 39 [facility] [place] Comment on above: Performed By: #### C MP #### [address] [address] Bilirubin [Mass/Vol] 0.3 mg/dL Normal 0.0 - 1.2 [facility] Comment on above: Performed By: #### C MP #### [address] [address] Calcium [Mass/Vol] 9.6 mg/dL Normal 8.6 - 10.3 [facility] Comment on above: Performed By: #### C MP #### [address] [address] Chloride [Moles/Vol] 104 mmol/L Normal 98 - 107 [facility] Comment on above: Performed By: #### C MP #### [address] [address] Creatinine [Mass/Vol] 0.75 mg/dL Normal 0.50 - 1.05 [facility] [place] Comment on above: Performed By: #### C MP #### [address] [address] eGFR FEMALE >90 Normal >90 [facility] [place] Comment on above: Result Comment: CALC ULATIONS OF ESTIMATED GFR ARE PERFORMED USING THE 2020 CKD-EPI STUDY REFIT EQUATION WITHOUT THE RACE VARIABLE FOR THE IDMS-TRACEABLE CREATININE METHODS. https://jasn.asnjournals.org/content/early//ASN.2020 100325 Performed By: #### C MP #### [address] [address] Glucose [Mass/Vol] 104 mg/dL High 74 - 99 [facility] Comment on above: Performed By: #### C MP #### [address] [address] HCO3 (Bld) [Moles/Vol] 28 mmol/L Normal 21 - 32 [facility] [place] Comment on above: Performed By: #### C MP #### [address] [address] Potassium [Moles/Vol] 4.1 mmol/L Normal 3.5 - 5.3 [facility] [place] Comment on above: Performed By: #### C MP #### [address] [address] Protein [Mass/Vol] 7.6 g/dL Normal 6.4 - 8.2 [facility] Comment on above: Performed By: #### C MP #### [address] [place] [address] Sodium [Moles/Vol] 138 mmol/L Normal 136 - 145 [facility] Comment on above: Performed By: #### C MP #### [address] [address] Urea nitrogen [Mass/Vol] 10 mg/dL Normal 6 - 23 [facility] [place] Comment on above: Performed By: #### C MP #### [address] [address] Complete Blood Count + Diffe rentialon 03-14-2022 Basophils/100 WBC (Bld) 0.8 % 0.0 - 2.0 M [facility] 205 DO Work Phone: Erythrocyte distribution width (RBC) [Ratio] 14.0 % See Below [facility] 205 DO Work Phone: Comment on above: Reference Range: 11. 5 - 14.5 Hematocrit (Bld) [Volume fraction] 41.2 % See Below [facility] 205 DO Work Phone: Comment on above: Reference Range: 36. 0 - 46.0 Hemoglobin (Bld) [Mass/Vol] 13.1 g/dL See Below [facility] 205 DO Work Phone: Comment on above: Reference Range: 12. 0 - 16.0 Lymphocytes/100 WBC (Bld) 36.1 % See Below [facility] 205 DO Work Phone: Comment on above: Reference Range: 13. 0 - 44.0 MCHC (RBC) [Mass/Vol] 31.8 g/dL below low threshold See Below [facility] 205 DO Work Phone: Comment on above: Reference Range: 32. 0 - 36.0 MCV (RBC) [Entitic vol] 78 fL below lo w threshold 80 - 100 [facility] 205 DO Work Phone: Monocytes/100 WBC (Bld) 6.2 % 2.0 - 10.0 [facility] 205 DO Work Phone: Neutrophils/100 WBC (Bld) 54.6 % See Below [facility] 205 DO Work Phone: Comment on above: Reference Range: 40. 0 - 80.0 Platelets (Bld) [#/Vol] 325 10*3/uL 150 - 450 [facility] 205 DO Work Phone: RBC (Bld) [#/Vol] 5.30 {x10E12/L} above high threshold See Below [facility] 205 DO Work Phone: Comment on above: Reference Range: 4.0 0 - 5.20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 10:57-0400 Body weight 131.54 kg JHON SCOTT DO Work Phone: 5(817)015-384247 [place] [address] 11-07-2024 10:57-0400 Diastolic blood pressure 86 mm[Hg] JOHN SCOTT DO Work Phone: 1(507)160-507435 [place] [address] 11-07-2024 10:57-0400 Systolic blood pressure 123 mm[Hg] JHON SCOTT DO Work Phone: 8(456)212-120535 [place] [address] 10-21-2024 09:23-0400 Body height 170.18 cm JHON SCOTT DO Work Phone: 2(078)129-303235 [place] [address] 10-21-2024 09:23-0400 Body mass index (BMI) [Ratio] 44.1 kg/m2 JHON SCOTT DO Work Phone: 5(397)559-298535 [place] [address] 10-21-2024 09:23-0400 Body weight 128.02 kg JHON SCOTT DO Work Phone: 1(892)085-046535 [place] [address] 10-21-2024 09:23-0400 Diastolic blood pressure 81 mm[Hg] JHON SCOTT DO Work Phone: 8(805)717-580735 [place] [address] 10-21-2024 09:23-0400 Systolic blood pressure 117 mm[Hg] JHON SCOTT DO Work Phone: 4(859)397-441635 [place] [address] 10-10-2024 10:15-0400 Body height 170.18 cm JHON SCOTT DO Work Phone: 0(642)816-307435 [place] [address] 10-10-2024 10:14-0400 Body mass index (BMI) [Ratio] 43.9 kg/m2 JHON SCOTT DO Work Phone: 9(124)591-736935 [place] [address] 10-10-2024 10:14-0400 Body weight 127.06 kg JHON SCOTT DO Work Phone: 6(372)118-047135 [place] [address] 10-10-2024 10:14-0400 Diastolic blood pressure 69 mm[Hg] JHON SCOTT DO Work Phone: 0(544)736-987735 [place] [address] 10-10-2024 10:14-0400 Systolic blood pressure 107 mm[Hg] JHON SCOTT DO Work Phone: [facility] 10-05-2024 17:50-0400 Heart rate 84 /min JHON SCOTT DO Work Phone: [facility] 10-05-2024 17:50-0400 SaO2% (BldA) [Mass fraction] 92 % JHON SCOTT DO Work Phone: [facility] 10-05-2024 14:53-0400 Body height 170.18 cm JHON SCOTT DO Work Phone: [facility] 10-05-2024 14:53-0400 Body mass index (BMI) [Ratio] 43.7 kg/m2 JHON SCOTT DO Work Phone: [facility] 10-05-2024 14:53-0400 Body weight 126.6 kg JHON SCOTT DO Work Phone: [facility] 09-11-2024 11:06-0400 Body weight 122.[address] Brody Cleaning DO Work Phone: [facility] 09-11-2024 11:06-0400 Diastolic blood pressure 77 mm[Hg] Dr. Brody Cleaning DO Work Phone: [facility] 09-11-2024 11:06-0400 Systolic blood pressure 112 mm[Hg] Dr. Brody Cleaning DO Work Phone: [facility] 09-11-2024 10:43-0400 Body height 170.[address] Brody Cleaning DO Work Phone: [facility] 08-11-2024 10:06-0400 Body height 170.[address] Brody Cleaning DO Work Phone: [facility] 08-11-2024 10:06-0400 Body mass index (BMI) [Ratio] 41.1 kg/m2 Dr. Brody Cleaning DO Work Phone: [facility] 08-11-2024 10:06-0400 Body weight 118.[address] Brody Cleaning DO Work Phone: 1(891)852-267638 [place] [address] 08-11-2024 10:06-0400 Diastolic blood pressure 75 mm[Hg] Dr. Brody Cleaning DO Work Phone: 0(569)799-953938 [place] [address] 08-11-2024 10:06-0400 Systolic blood pressure 112 mm[Hg] Dr. Brody Cleaning DO Work Phone: 9(266)480-793738 [place] [address] 07-21-2024 15:23-0400 Body mass index (BMI) [Ratio] 39.8 kg/m2 Dr. Brody Cleaning DO Work Phone: 6(963)541-770638 [place] [address] 07-21-2024 15:23-0400 Body weight 115.[address] Brody Cleaning DO Work Phone: 7(921)428-477893 [place] [address] 07-21-2024 15:23-0400 Diastolic blood pressure 80 mm[Hg] Dr. Brody Cleaning DO Work Phone: 7(091)160-294293 [place] [address] 07-21-2024 15:23-0400 Systolic blood pressure 118 mm[Hg] Dr. Brody Cleaning DO Work Phone: 5(026)376-932193 [place] [address] 07-16-2024 10:23-0400 Body mass index (BMI) [Ratio] 39.8 kg/m2 Dr. Brody Cleaning DO Work Phone: 4(804)506-811893 [place] [address] 07-16-2024 10:23-0400 Body weight 115.[address] Brody Cleaning DO Work Phone: 7(371)226-623938 [place] [address] 07-16-2024 10:23-0400 Diastolic blood pressure 72 mm[Hg] Dr. Brody Cleaning DO Work Phone: 0(868)396-353338 [place] [address] 07-16-2024 10:23-0400 Systolic blood pressure 118 mm[Hg] Dr. Brody Cleaning DO Work Phone: 7(270)797-292693 [place] [address] 06-30-2024 11:22-0400 Body mass index (BMI) [Ratio] 39.6 kg/m2 Dr. Brody Cleaning DO Work Phone: [facility] 06-30-2024 11:22-0400 Body weight 114.[address] Brody Cleaning DO Work Phone: [facility] 06-30-2024 11:22-0400 Diastolic blood pressure 83 mm[Hg] Dr. Brody Cleaning DO Work Phone: [facility] 06-30-2024 11:22-0400 Systolic blood pressure 128 mm[Hg] Dr. Brody Cleaning DO Work Phone: [facility] 06-19-2024 15:21-0400 Body height 170.[address] Brody Cleaning DO Work Phone: 7(808)448-225338 [place] [address] 06-19-2024 15:21-0400 Body mass index (BMI) [Ratio] 39.9 kg/m2 Dr. Brody Cleaning DO Work Phone: [facility] 06-19-2024 15:21-0400 Body weight 115.[address] Brody Cleaning DO Work Phone: [facility] 06-19-2024 15:21-0400 Diastolic blood pressure 84 mm[Hg] Dr. Brody Cleaning DO Work Phone: [facility] 06-19-2024 15:21-0400 Systolic blood pressure 128 mm[Hg] Dr. Brody Cleaning DO Work Phone: [facility] 06-13-2024 19:02-0400 Diastolic blood pressure 91 mm[Hg] Dr. Brody Cleaning DO Work Phone: [facility] 06-13-2024 19:02-0400 Heart rate 75 /min Dr. Brody Cleaning DO Work Phone: [facility] 06-13-2024 19:02-0400 SaO2% (BldA) [Mass fraction] 99 % Dr. Brody Cleaning DO Work Phone: [facility] 06-13-2024 19:02-0400 Systolic blood pressure 145 mm[Hg] Dr. Brody Cleaning DO Work Phone: [facility] 06-13-2024 16:24-0400 Body height 170.[address] Brody Cleaning DO Work Phone: [facility] 06-13-2024 16:24-0400 Body mass index (BMI) [Ratio] 39.1 kg/m2 Dr. Brody Cleaning DO Work Phone: [facility] 06-13-2024 16:24-0400 Body temperature 98.2 [degF] Dr. Brody Cleaning DO Work Phone: 5(320)053-947438 [place] [address] 06-13-2024 16:24-0400 Body weight 113.[address] Brody Cleaning DO Work Phone: [facility] 06-13-2024 16:24-0400 Respiratory rate 16 /min Dr. Brody Cleaning DO Work Phone: 8(563)061-739738 [place] [address] 06-13-2024 15:52-0400 Body mass index (BMI) [Ratio] 39.6 kg/m2 Dr. Brody Cleaning DO Work Phone: 7(651)480-574938 [place] [address] 06-13-2024 15:52-0400 Body weight 114.[address] Brody Cleaning DO Work Phone: 3(128)695-160038 [place] [address] 06-13-2024 15:52-0400 Diastolic blood pressure 82 mm[Hg] Dr. Brody Cleaning DO Work Phone: 5(957)442-068638 [place] [address] 06-13-2024 15:52-0400 Systolic blood pressure 123 mm[Hg] Dr. Brody Cleaning DO Work Phone: 8(460)479-502738 [place] [address] 05-23-2024 10:49-0400 Body height 170.[address] Brody Cleaning DO Work Phone: [facility] 05-23-2024 10:49-0400 Body mass index (BMI) [Ratio] 39.1 kg/m2 Dr. Brody Cleaning DO Work Phone: [facility] 05-23-2024 10:49-0400 Body weight 113.[address] Brody Cleaning DO Work Phone: [facility] 05-23-2024 10:49-0400 Diastolic blood pressure 79 mm[Hg] Dr. Brody Cleaning DO Work Phone: [facility] 05-23-2024 10:49-0400 Systolic blood pressure 108 mm[Hg] Dr. Brody Cleaning DO Work Phone: 9(220)720-848938 [place] [address] 05-20-2024 15:00-0400 Diastolic blood pressure 80 mm[Hg] Dr. Brody Cleaning DO Work Phone: 7(529)055-511338 [place] [address] 05-20-2024 15:00-0400 Heart rate 78 /min Dr. Brody Cleaning DO Work Phone: 8(012)259-451238 [place] [address] 05-20-2024 15:00-0400 Respiratory rate 16 /min Dr. Brody Cleaning DO Work Phone: 5(203)583-942038 [place] [address] 05-20-2024 15:00-0400 SaO2% (BldA) [Mass fraction] 98 % Dr. Brody Cleaning DO Work Phone: [facility] 05-20-2024 15:00-0400 Systolic blood pressure 116 mm[Hg] Dr. Brody Cleaning DO Work Phone: [facility] 05-20-2024 11:10-0400 Body height 170.[address] Brody Cleaning DO Work Phone: [facility] 05-20-2024 11:10-0400 Body mass index (BMI) [Ratio] 39.4 kg/m2 Dr. Brody Cleaning DO Work Phone: 5(804)310-948438 [place] [address] 05-20-2024 11:10-0400 Body temperature 97.1 [degF] Dr. Brody Cleaning DO Work Phone: [facility] 05-20-2024 11:10-0400 Body weight 114.[address] Brody Cleaning DO Work Phone: [facility] 04-03-2024 14:55-0500 Body height 170.2 cm Pal Booker MD Work Phone: [facility] 04-03-2024 14:55-0500 Body mass index (BMI) [Ratio] 39.31 kg/m2 Pal Booker MD Work Phone: [facility] 04-03-2024 14:55-0500 Body weight 113.85 kg Pal Booker MD Work Phone: [facility] 04-03-2024 14:55-0500 Diastolic blood pressure 87 mm[Hg] Pal Booker MD Work Phone: [facility] 04-03-2024 14:55-0500 Heart rate 80 /min Pal Booker MD Work Phone: [facility] 04-03-2024 14:55-0500 Systolic blood pressure 124 mm[Hg] Pal Booker MD Work Phone: [facility] 03-06-2024 20:30-0500 Diastolic blood pressure 61 mm[Hg] Mumtaz Marcial DO Work Phone: [facility] 03-06-2024 20:30-0500 Heart rate 66 /min Mumtaz Lemasters DO Work Phone: [facility] 03-06-2024 20:30-0500 Respiratory rate 16 /min Mumtaz Marcial DO Work Phone: [facility] 03-06-2024 20:30-0500 SaO2% (BldA) [Mass fraction] 99 % Mumtaz Lemasters DO Work Phone: [facility] 03-06-2024 20:30-0500 Systolic blood pressure 116 mm[Hg] Mumtaz Lemasters DO Work Phone: [facility] 03-06-2024 16:55-0500 Body height 170.2 cm Mumtaz Marcial DO Work Phone: [facility] 03-06-2024 16:55-0500 Body mass index (BMI) [Ratio] 39.16 kg/m2 Mumtaz Marcial DO Work Phone: [facility] 03-06-2024 16:55-0500 Body temperature 98.29 [degF] Mumtaz Marcial DO Work Phone: [facility] 03-06-2024 16:55-0500 Body weight 113.4 kg Mumtaz Marcial DO Work Phone: [facility] 01-24-2024 13:27-0500 Body height 170.2 cm Jhon Scott DO Work Phone: 2(159)208-662899 [address] 01-24-2024 13:27-0500 Body mass index (BMI) [Ratio] 40.53 kg/m2 Jhon Scott DO Work Phone: 7(432)121-381887 [place] [address] 01-24-2024 13:27-0500 Body weight 117.39 kg Jhon Scott DO Work Phone: 5(729)260-505287 [place] [address] 01-24-2024 13:27-0500 Diastolic blood pressure 74 mm[Hg] Jhon Scott DO Work Phone: 9(656)393-114887 [place] [address] 01-24-2024 13:27-0500 Heart rate 84 /min Jhon Scott DO Work Phone: 3(412)172-666487 [place] [address] 01-24-2024 13:27-0500 Systolic blood pressure 110 mm[Hg] Jhon Scott DO Work Phone: 0(939)038-555487 [place] [address] 09-19-2023 13:31-0400 Body height 170.2 cm Jhon Scott DO Work Phone: 1(084)036-525787 [place] [address] 09-19-2023 13:31-0400 Body mass index (BMI) [Ratio] 40.88 kg/m2 Jhon Scott DO Work Phone: 0(075)928-710287 [place] [address] 09-19-2023 13:31-0400 Body weight 118.39 kg Jhon Scott DO Work Phone: 2(246)982-507187 [place] [address] 09-19-2023 13:31-0400 Diastolic blood pressure 64 mm[Hg] Jhon Scott DO Work Phone: 4(023)733-907387 [place] [address] 09-19-2023 13:31-0400 Heart rate 84 /min Jhon Scott DO Work Phone: 8(618)119-856887 [place] [address] 09-19-2023 13:31-0400 Systolic blood pressure 114 mm[Hg] Jhon Scott DO Work Phone: 0(717)904-541187 [place] [address] 06-20-2023 14:41-0400 Body height 170.2 cm Jhon Scott DO Work Phone: 7(402)050-010787 [place] [address] 06-20-2023 14:41-0400 Body mass index (BMI) [Ratio] 41.22 kg/m2 Jhon Scott DO Work Phone: 3(343)391-084187 [place] [address] 06-20-2023 14:41-0400 Body weight 119.39 kg Jhon Scott DO Work Phone: 7(742)488-148587 [place] [address] 06-20-2023 14:41-0400 Diastolic blood pressure 82 mm[Hg] Jhon Scott DO Work Phone: 4(829)726-911387 [place] [address] 06-20-2023 14:41-0400 Heart rate 92 /min Jhon Scott DO Work Phone: 6(491)428-038487 [place] [address] 06-20-2023 14:41-0400 Systolic blood pressure 126 mm[Hg] Jhon Scott DO Work Phone: 8(679)553-850987 [place] [address] 05-15-2023 13:58-0500 Body height 170.2 cm Jhon Scott DO Work Phone: 0(087)414-822287 [place] [address] 05-15-2023 13:58-0500 Body mass index (BMI) [Ratio] 41.72 kg/m2 Jhon Scott DO Work Phone: 1(023)620-197287 [place] [address] 05-15-2023 13:58-0500 Body weight 120.84 kg Jhon Scott DO Work Phone: 7(426)783-753204 [place] [address] 05-15-2023 13:58-0500 Diastolic blood pressure 82 mm[Hg] Jhon Scott DO Work Phone: 5(385)165-442987 [place] [address] 05-15-2023 13:58-0500 Heart rate 88 /min Jhon Scott DO Work Phone: 4(524)360-451487 [place] [address] 05-15-2023 13:58-0500 Systolic blood pressure 120 mm[Hg] Jhon Scott DO Work Phone: 2(233)774-070287 [place] [address] 01-16-2023 10:44-0500 Body height 170.2 cm Jhon Scott DO Work Phone: 2(658)639-048087 [place] [address] 01-16-2023 10:44-0500 Body mass index (BMI) [Ratio] 42.76 kg/m2 Jhon Scott DO Work Phone: 9(784)905-233387 [place] [address] 01-16-2023 10:44-0500 Body weight 123.83 kg Jhon Scott DO Work Phone: 3(583)059-553187 [place] [address] 01-16-2023 10:44-0500 Diastolic blood pressure 74 mm[Hg] Jhon Scott DO Work Phone: 0(726)394-766287 [place] [address] 01-16-2023 10:44-0500 Heart rate 88 /min Jhon Scott DO Work Phone: 6(971)683-564587 [place] [address] 01-16-2023 10:44-0500 Systolic blood pressure 114 mm[Hg] Jhon Scott DO Work Phone: 9(383)000-055087 [place] [address] 11-14-2022 13:11-0400 Body height 170.2 cm Jhon Scott DO Work Phone: 5(588)872-339587 [place] [address] 11-14-2022 13:11-0400 Body mass index (BMI) [Ratio] 40.63 kg/m2 Jhon Scott DO Work Phone: 1(397)981-853187 [place] [address] 11-14-2022 13:11-0400 Body weight 117.66 kg Jhon Scott DO Work Phone: 0(948)071-667687 [place] [address] 11-14-2022 13:11-0400 Diastolic blood pressure 80 mm[Hg] Jhon Scott DO Work Phone: 2(204)654-489787 [place] [address] 11-14-2022 13:11-0400 Heart rate 84 /min Jhon Scott DO Work Phone: 6(011)927-158087 [place] [address] 11-14-2022 13:11-0400 Systolic blood pressure 110 mm[Hg] Jhon Scott DO Work Phone: 5(749)488-749487 [place] [address] 08-15-2022 13:41-0400 Body height 170.2 cm Jhon Scott DO Work Phone: 2(853)670-110287 [place] [address] 08-15-2022 13:41-0400 Body mass index (BMI) [Ratio] 38.25 kg/m2 Jhon Scott DO Work Phone: 4(910)443-926387 [place] [address] 08-15-2022 13:41-0400 Body weight 110.77 kg Jhon Scott DO Work Phone: 7(144)416-475787 [place] [address] 08-15-2022 13:41-0400 Diastolic blood pressure 74 mm[Hg] Jhon Scott DO Work Phone: 9(781)837-836687 [place] [address] 08-15-2022 13:41-0400 Heart rate 88 /min Jhon Scott DO Work Phone: 3(759)755-680687 [place] [address] 08-15-2022 13:41-0400 Systolic blood pressure 108 mm[Hg] Jhon Scott DO Work Phone: 5(446)196-239387 [place] [address] 07-18-2022 14:04-0400 Body height 170.2 cm Jhon Scott DO Work Phone: 9(237)884-533487 [place] [address] 07-18-2022 14:04-0400 Body mass index (BMI) [Ratio] 37.43 kg/m2 Jhon Scott DO Work Phone: [facility] 07-18-2022 14:04-0400 Body weight 108.41 kg Jhon Scott DO Work Phone: 9(004)123-561687 [place] [address] 07-18-2022 14:04-0400 Diastolic blood pressure 80 mm[Hg] Jhon Scott DO Work Phone: 8(869)219-066987 [place] [address] 07-18-2022 14:04-0400 Heart rate 76 /min Jhon Scott DO Work Phone: 5(242)605-627604 [place] [address] 07-18-2022 14:04-0400 Systolic blood pressure 118 mm[Hg] Jhon Scott DO Work Phone: 3(152)187-877687 [place] [address] 06-02-2022 11:54-0400 Body height 170.2 cm Jhon Scott DO Work Phone: 1(940)181-750687 [place] [address] 06-02-2022 11:54-0400 Body mass index (BMI) [Ratio] 37.53 kg/m2 Jhon Scott DO Work Phone: 9(940)396-590004 [place] [address] 06-02-2022 11:54-0400 Body weight 108.68 kg Jhon Scott DO Work Phone: 9(138)371-451004 [place] [address] 06-02-2022 11:54-0400 Diastolic blood pressure 76 mm[Hg] Jhon Scott DO Work Phone: 0(548)846-907187 [place] [address] 06-02-2022 11:54-0400 Heart rate 72 /min Jhon Scott DO Work Phone: 4(307)497-320404 [place] [address] 06-02-2022 11:54-0400 Systolic blood pressure 118 mm[Hg] Jhon Scott DO Work Phone: 4(069)159-431787 [place] [address] 03-23-2022 14:29-0500 Body height 170.18 cm Jhon A Scott Work Phone: [facility] 205 DO Work Phone: 03-23-2022 14:29-0500 Body mass index (BMI) [Ratio] 38.06 kg/m2 Jhon A Scott Work Phone: [facility] 205 DO Work Phone: 03-23-2022 14:29-0500 Body surface area Derived from formula 2.2 m2 Jhon A Scott Work Phone: [facility] 205 DO Work Phone: 03-23-2022 14:29-0500 Body weight 110.22 kg Jhon A Scott Work Phone: [facility] 205 DO Work Phone: 03-23-2022 14:29-0500 Diastolic blood pressure 76 mm[Hg] Jhon A Scott Work Phone: [facility] 205 DO Work Phone: 03-23-2022 14:29-0500 Heart rate 92 /min Jhon A Scott Work Phone: [facility] 205 DO Work Phone: 03-23-2022 14:29-0500 Systolic blood pressure 126 mm[Hg] Jhon A Scott Work Phone: [facility] 205 DO Work Phone: 03-09-2022 10:56-0500 Body height 170.18 cm Jhon A Scott Work Phone: [facility] 205 DO Work Phone: 03-09-2022 10:56-0500 Body mass index (BMI) [Ratio] 37.43 kg/m2 Jhon A Scott Work Phone: [facility] 205 DO Work Phone: 03-09-2022 10:56-0500 Body surface area Derived from formula 2.18 m2 Jhon A Scott Work Phone: [facility] 205 DO Work Phone: 03-09-2022 10:56-0500 Body weight 108.41 kg Jhon A Scott Work Phone: [facility] 205 DO Work Phone: 03-09-2022 10:56-0500 Diastolic blood pressure 80 mm[Hg] Jhon A Scott Work Phone: [facility] 205 DO Work Phone: 03-09-2022 10:56-0500 Heart rate 99 /min Jhon A Scott Work Phone: [facility] 205 DO Work Phone: 03-09-2022 10:56-0500 SaO2% (BldA) [Mass fraction] 99 % Jhon A Scott Work Phone: [facility] 205 DO Work Phone: 03-09-2022 10:56-0500 Systolic blood pressure 118 mm[Hg] Jhon A Scott Work Phone: [facility] 205 DO Work Phone: Encounters Encounter Date Encounter Type Care Provider Facility Start: 12-24-2024 ambulatory JHON SCOTT Facility: [facility] Start: 12-03-2024 ambulatory JHON SCOTT Facility: [facility] Start: 12-03-2024 ambulatory JHON SCOTT Facility: [facility] Start: 11-18-2024 End: 11-18-[address] Ana Laura Mercado MD -[facility] Work Phone: Start: 11-18-2024 End: 11-18-2024 ambulatory JHON SCOTT DO Work Phone: [facility] Start: 11-07-2024 End: 11-07-[address] Ana Laura Mercado MD -[facility] Work Phone: Start: 11-07-2024 End: 11-07-2024 ambulatory JHON SCOTT DO Work Phone: [facility] Start: 11-06-2024 End: 11-06-2024 ambulatory JHON SCOTT DO Work Phone: -Laboratory Start: 11-06-2024 End: 11-06-[address] Ana Laura Mercado MD -Laboratory Work Phone: Start: 11-06-2024 End: 11-06-2024 ambulatory Ana Laura Mercado Facility:[facility] Start: 10-21-2024 End: 10-21-[address] Ana Laura Mercado MD -[facility] Work Phone: Start: 10-21-2024 End: 10-21-2024 ambulatory JHON SCOTT DO Work Phone: [facility] Start: 10-10-2024 End: 10-10-[address] Elissa Weldon DO -[facility] Work Phone: Start: 10-10-2024 End: 10-10-2024 ambulatory JHON SCOTT DO Work Phone: [facility] Start: 10-10-2024 End: 10-10-2024 ambulatory Ana Laura Mercado Facility:[facility] Start: 10-05-2024 ambulatory JHON SCOTT Facility: [facility] Start: 10-05-2024 Non-patient / Non-visit Amada Black CNM -[facility] Start: 10-05-2024 End: 10-05-2024 ambulatory JHON SCOTT DO Work Phone: [facility] Start: 10-05-2024 End: 10-05-2024 Patient encounter procedure Amada Black [facility] Work Phone: Start: 09-11-2024 End: 09-11-[address] Ana Laura Mercado MD -[facility] Work Phone: Start: 09-11-2024 End: 09-11-[address] Brody Cleaning DO Work Phone: -[facility] Start: 08-19-2024 End: 08-19-2024 ambulatory [facility] Start: 08-11-2024 End: 08-11-2024 Patient encounter procedure Matt TEMPLE -[facility] Work Phone: Start: 08-11-2024 End: 08-11-[address] Brody Cleaning DO Work Phone: [facility] Work Phone: Start: 08-07-2024 End: 08-07-2024 ambulatory MD [facility] Start: 07-21-2024 End: 07-21-2024 Patient encounter procedure Amada Black CNM -[facility] Work Phone: Start: 07-21-2024 End: 07-21-2024 ambulatory JHON SCOTT Facility:[facility] Start: 07-16-2024 End: 07-16-2024 Patient encounter procedure Matt TEMPLE -[facility] Work Phone: Start: 07-16-2024 End: 07-16-2024 ambulatory JHON SCOTT Facility:[facility] Start: 06-30-2024 End: 06-30-2024 Patient encounter procedure Amada Black CNM -[facility] Work Phone: Start: 06-30-2024 End: 06-30-2024 ambulatory [facility] Start: 06-19-2024 End: 06-19-[address] Elissa Weldon DO -[facility] Work Phone: Start: 06-19-2024 End: 06-19-[address] Brody Cleaning DO Work Phone: [facility] Work Phone: Start: 06-19-2024 End: 06-19-2024 ambulatory Elissa Weldon Facility:[facility] Start: 06-13-2024 End: 06-13-2024 Emergency department patient visit Dr. Brody Cleaning DO Work Phone: -Emergency Department Work Phone: Start: 06-13-2024 End: 06-13-2024 Patient encounter procedure Amada Black CNM -[facility] Work Phone: Start: 06-13-2024 End: 06-13-2024 ambulatory [facility] Facility:[facility] Start: 05-23-2024 End: 05-23-[address] Brody Cleaning DO Work Phone: [facility] Work Phone: Start: 05-23-2024 End: 05-23-2024 Patient encounter procedure Amada Black CNM -Laboratory, Specimen Work Phone: Start: 05-23-2024 End: 05-23-2024 Patient encounter procedure Amada Black CNM -[facility] Work Phone: Start: 05-23-2024 End: 05-23-2024 ambulatory [facility] Facility:[facility] Start: 05-23-2024 End: 05-23-2024 ambulatory [facility] Facility:[facility] Start: 05-20-2024 End: 05-20-2024 Emergency department patient visit Dr. Brody Cleaning DO Work Phone: -Emergency Department Work Phone: Start: 04-08-2024 End: 04-08-2024 ambulatory PHYSICIAN NO [facility] Start: 04-03-2024 End: 04-03-2024 ambulatory PAL BOOKER [facility] Start: 04-03-2024 End: 04-03-2024 Office outpatient new 30 minutes Jhon Scott DO Work Phone: [facility] Comment on above: Epigastric pain Start: 04-03-2024 End: 04-03-2024 Admission to same day surgery center Pal Booker MD Work Phone: [facility] Comment on above: Epigastric pain (Chelsi albaro Dx); Nausea Start: 03-10-2024 End: 03-10-[address] [facility] Comment on above: Epigastric pain (Chelsi albaro Dx) Start: 03-06-2024 End: 03-06-2024 Emergency department patient visit Mumtaz Marcial DO Work Phone: [facility] Comment on above: Nausea and vomiting, unspecified vomiting type (Primary Dx) Start: 01-24-2024 End: 01-24-2024 ambulatory [facility] Start: 01-24-2024 End: 01-24-2024 Office outpatient visit 15 minutes Jhon A Scott DO Work Phone: [facility] Comment on above: Rash (Primary Dx); Anxiety; Depression, major, single episode, mild (CMS-HCC) Start: 11-30-2023 End: 11-30-2023 ambulatory [facility] Start: 09-19-2023 End: 09-19-2023 ambulatory [facility] Start: 09-19-2023 End: 09-19-2023 Office outpatient visit 25 minutes Jhon A Scott DO Work Phone: [facility] Comment on above: Vitamin D deficiency (Primary Dx); Anxiety; Depression, major, single episode, mild (CMS-HCC); Iron deficiency; Bilateral wrist pain Start: 09-11-2023 End: 09-11-2023 ambulatory [facility] Start: 09-11-2023 End: 09-11-2023 Encounter for general adult medical examination without abnormal findings [facility] Start: 06-20-2023 End: 06-20-2023 Office outpatient visit 15 minutes Jhon A Scott DO Work Phone: [facility] Comment on above: Routine general medi rk examination at a health care facility (Primary Dx); Anxiety; Depression, major, single episode, mild (CMS/HCC); Class 3 severe obesity due to excess calories with serious comorbidity and body mass index (BMI) of 40.0 to 44.9 in adult (CMS/HCC) Start: 06-20-2023 End: 06-20-2023 Patient encounter status Jhon A [employer] Work Phone: [facility] Work Phone: Start: 06-20-2023 End: 06-20-2023 ambulatory [facility] Start: 06-20-2023 End: 06-20-2023 Encounter for general adult medical examination without abnormal findings [facility] Start: 05-15-2023 End: 05-15-2023 Office outpatient visit 15 minutes Jhon A Scott DO Work Phone: [facility] Comment on above: Class 3 severe obesi ty due to excess calories with serious comorbidity and body mass index (BMI) of 40.0 to 44.9 in adult (CMS/HCC) (Primary Dx); Anxiety; Depression, major, single episode, mild (CMS/HCC) Start: 05-15-2023 End: 05-15-2023 ambulatory [facility] Start: 03-20-2023 End: 03-20-2023 Emergency department patient visit PHYSICIAN [facility] Start: 01-16-2023 End: 01-16-2023 Office outpatient visit 15 minutes Jhon A Scott DO Work Phone: [facility] Comment on above: Depression, major, s dian episode, mild (CMS/HCC) (Primary Dx); Anxiety Start: 11-14-2022 End: 11-14-2022 Office outpatient visit 15 minutes Jhon A Scott DO Work Phone: [facility] Comment on above: Anxiety; Depression, major, single episode, mild (CMS/HCC) Start: 08-15-2022 End: 08-15-2022 Office outpatient visit 15 minutes Jhon A Scott DO Work Phone: [facility] Comment on above: Anxiety; Depression, major, single episode, mild (CMS/HCC) Start: 07-18-2022 End: 07-18-2022 Office outpatient visit 15 minutes Jhon A Scott DO Work Phone: [facility] Comment on above: Anxiety; Depression, major, single episode, mild (CMS/HCC) Start: 06-02-2022 End: 06-02-2022 Office outpatient visit 25 minutes Jhon A Scott DO Work Phone: [facility] Comment on above: Anxiety (Primary Dx) ; Depression, major, single episode, mild (CMS/HCC); Vitamin D deficiency; Iron deficiency Start: 03-23-2022 Office outpatient visit 25 minutes Jhon A Scott Work Phone: [facility] 205 DO Work Phone: Start: 03-23-2022 Patient encounter procedure Jhon A Scott Work Phone: [facility] 205 DO Work Phone: Start: 03-23-2022 ambulatory DO JHON SCOTT Facili ty:[id number] Start: 03-09-2022 ambulatory DO JHON SCOTT Facili ty:[id number] Start: 01-31-2021 End: 01-31-2021 [facility] Start: 10-09-2017 End: 12-24-2017 Patient encounter procedure Merle Crouch Facility:[facility] Start: 10-09-2017 Patient encounter Facil [id number] Start: 07-04-2017 End: 07-04-2017 Emergency department patient visit [facility] Procedures Date Procedure Procedure Detail Performing Clinician Start: 10-10-2024 Serologic test for syphilis No Primary Care Physician Start: 10-05-2024 Ultrasound scan for growth JHON SCOTT DO Work Phone: Start: 06-19-2024 Methadone measuremen t, urine Dr. Brody lCeaning DO Work Phone: Start: 06-19-2024 Hepatitis C [...] HCV Quant by PCR testing - HCVPCR #[id number] Non Reactive: < 0.8 Equivocal: >/= 0.8 [...] Ct abdomen & pelvis w/contrast material Arianne PALACIOS[employer] Work Phone: Start: 03-06-2024 Urinalysis microscop ic panel - Urine Qualitative by Automated Arianne PALACIOS[employer] Work Phone: Start: 03-06-2024 Urine test visual color cmprsn meths Arianne PALACIOS[facility] Work Phone: Start: 03-06-2024 Urnls dip stick/tabl et reagent auto microscopy Arianne PALAC[facility]OS[employer] Work Phone: Start: 03-06-2024 EXTRA TUBES Mumtaz D Lemasters DO Work Phone: Start: 03-06-2024 LIGHT BLUE TOP Mumtaz D Lemasters DO Work Phone: Start: 03-06-2024 PST TOP Mumtaz D Lemasters DO Work Phone: Start: 03-06-2024 SST TOP Mumtaz D Lemasters DO Work Phone: Start: 03-06-2024 Comprehensive metabo lic panel Arianne PALACIOS-[facility] Work Phone: Start: 09-11-2023 Lipid 1996 panel - S haider or Plasma Jhon Scott DO Work Phone: Start: 06-20-2023 FOLLOW UP IN FAMILY MEDICINE JHON SCOTT Start: 05-15-2023 FOLLOW UP IN FAMILY MEDICINE JHON SCOTT Start: 05-15-2023 Drug screening cannabinoids natural Jhon Scott DO Work Phone: Start: 05-15-2023 Drugs of abuse scree n W Reflex confirm panel - Urine Jhon Scott DO Work Phone: Start: 09-28-2022 Microscopic observat ion [Identifier] in Cervix by Cyto stain Jhon Scott DO Work Phone: Start: 03-14-2022 Lipid 1996 panel - S haider or Plasma Jhon Scott DO Work Phone: section Jhon Scott Work Phone: Extraction of wisdom tooth M seema Scott Work Phone: H/O: section Previous c esarean section Dr. Brody Cleaning DO Work Phone: Comment on above: plans repeat C/S plans repeat C/S. RL [employer] BS 12/24/24 SM. H/O: section Previous c esarean section Amada Black CNM H/O: section Previous c esarean section Amada RUSSOM H/O: section Previous c esarean section Dr. Elissa Weldon DO H/O: section Previous c esarean section Amada RUSSOM H/O: section Previous c esarean section Matt Ashley [employer]ATOR-C H/O: section Previous c esarean section Amada RUSSOM H/O: section Previous c esarean section Matt Ashley [employer] HEAD [employer] OPERATOR-C H/O: section Previous c esarean section Dr. Ana Laura Mercado MD H/O: section Previous c esarean section Amada RUSSOM H/O: section Previous c esarean section Dr. Elissa Weldon DO H/O: section Previous c esarean section Dr. Ana Laura Mercado MD H/O: section Previous c esarean section Dr. Ana Laura Mercado MD H/O: section Previous c esarean section Dr. Ana Laura Mercado MD Plan of Treatment Date Care Activity Detail Author Start: 2059 RSV patients and/or patients aged 60+ years (1 - 1-dose 60+ series) RSV patients and/or patients aged 60+ years (1 - 1-dose 60+ series) [facility] Start: 12-15-2049 Zoster Vaccines (1 of 2) Zoster Vaccines (1 of 2) [facility] Start: 03-12-2030 DTaP/Tdap/Td Vaccines (2 - Td or Tdap) DTaP/Tdap/Td Vaccines (2 - Td or Tdap) [facility] Start: 03-12-2030 Tetanus vaccination Tetanus: Every 10yrs [facility] Start: 09-10-2028 Lipid panel Lipid Panel [facility] Start: 03-14-2027 Lipid panel Lipid Panel [facility] Start: 09-28-2025 Screening for malignant neoplasm of cervix [facility] Start: 10-10-2024 CBC W Auto Differential panel - Blood [facility] Start: 10-10-2024 Measurement of glucose 2 hours after glucose challenge for glucose tolerance test [facility] Start: 10-10-2024 Serologic test for syphilis [facility] Start: 10-10-2024 [facility] Start: 10-05-2024 Nonstress test [facility] Start: 10-05-2024 Obstetric monitoring [facility] Start: 10-05-2024 Vital signs measurements [facility] Start: 10-05-2024 [facility] Start: 10-05-2024 Patient discharge [facility] Start: 09-10-2024 Diabetes mellitus screening Diabetes Screening [facility] Start: 06-13-2024 [facility] [facility] Start: 05-20-2024 [facility] Start: 05-20-2024 Bacteria identified in Urine by Culture Urine Culture [facility] Start: 05-20-2024 [facility] Start: 04-28-2024 End: 04-28-2024 Patient encounter procedure 04/28/2024 2:20 PM EST Off ice Visit [facility] [address] [facility] [address] [place] [address] Jhon Scott DO [address] [facility] [address] [place] [address] [facility] Start: 04-08-2024 End: 04-08-2024 Admission to same day surgery center 04/08/2024 10:50 AM EST - 04/08/2024 11:20 AM EST Surgery [facility] [address] [place] [address] Pal Booker MD [address] [place] [address] ESOPHAGOGASTRODUODENOSCOPY [facility] Comment on above: ESOPHAGOGASTRODUODENOSCOPY Start: 04-08-2024 End: 04-08-2024 Esophagogastroduodenoscopy transoral diagnostic ESOPHAGOGASTRODUODENOSCOPY Epigastric pain Nausea 04/08/2024 10:50 AM EST [facility] [place] Start: 04-08-2024 Subsequent hospital visit by physician [facility] Start: 12-26-2023 End: 12-26-2023 Patient encounter procedure 12/26/2023 1:40 PM EDT Off ice Visit [facility] [address] [facility] [address] [place] [address] Jhon Scott DO [address] [facility] [address] [place] [address] [facility] Start: 11-11-2023 COVID-19 Vaccine ( season) COVID-19 Vaccine ( season) [facility] Start: 11-11-[address] [facility] Start: 09-19-2023 End: 09-18-2024 25-hydroxyvitamin D3 [Mass/volume] in Serum or Plasma Vitamin D 25-Hydroxy,Total (for eval of Vitamin D levels) Lab Routine Vitamin D deficiency Expected: 09/19/2023 (Approximate), Expires: 09/18/2024 [facility] Work Phone: Comment on above: Expected: 09/19/2023 (Approximate), Expi res: 09/18/2024 Start: 09-19-2023 End: 09-18-2024 CBC W Auto Differential panel - Blood CBC and Auto Differential Lab Routine Iron deficiency Expected: 09/19/2023 (Approximate), Expires: 09/18/2024 [facility] Service Area Work Phone: Comment on above: Expected: 09/19/2023 (Approximate), Expi res: 09/18/2024 Start: 09-19-2023 End: 09-18-2024 Ferritin [Mass/volume] in Serum or Plasma Ferritin Lab Routine Iron deficiency Expected: 09/19/2023 (Approximate), Expires: 09/18/2024 [facility] Work Phone: Comment on above: Expected: 09/19/2023 (Approximate), Expi res: 09/18/2024 Start: 09-19-2023 End: 09-18-2024 Iron and Iron binding capacity panel - Serum or Plasma Iron and TIBC Lab Routine Iron deficiency Expected: 09/19/2023 (Approximate), Expires: 09/18/2024 [facility] Work Phone: Comment on above: Expected: 09/19/2023 (Approximate), Expi res: 09/18/2024 Start: 09-19-2023 End: 09-19-2023 Patient encounter procedure 09/19/2023 1:20 PM EDT Off ice Visit [facility] [address] [address] [place] [address] Jhon Scott DO [address] [facility] [address] [address] [place] [address] [facility] Start: 06-20-2023 End: 06-20-2023 Patient encounter procedure 06/20/2023 2:40 PM EDT Off ice Visit [facility] [address] [facility] [address] [place] [address] Yarely Jhonann-marie Aguila DO [address] [facility] [address] [place] [address] [facility] Start: 06-20-2023 End: 06-19-2024 25-hydroxyvitamin D3 [Mass/volume] in Serum or Plasma Vitamin D 25-Hydroxy,Total (for eval of Vitamin D levels) Lab Routine Routine general medical examination at a health care facility Expected: 06/20/2023 (Approximate), Expires: 06/19/2024 [facility] Work Phone: Comment on above: Expected: 06/20/2023 (Approximate), Expi res: 06/19/2024 Start: 06-20-2023 End: 06-19-2024 CBC W Auto Differential panel - Blood CBC and Auto Differential Lab Routine Routine general medical examination at a health care facility Expected: 06/20/2023 (Approximate), Expires: 06/19/2024 [facility] Service Area Work Phone: Comment on above: Expected: 06/20/2023 (Approximate), Expi res: 06/19/2024 Start: 06-20-2023 End: 06-19-2024 Comprehensive metabolic 2000 panel - Serum or Plasma Comprehensive Metabolic Panel Lab Routine Routine general medical examination at a health care facility Expected: 06/20/2023 (Approximate), Expires: 06/19/2024 [facility] Work Phone: Comment on above: Expected: 06/20/2023 (Approximate), Expi res: 06/19/2024 Start: 06-20-2023 End: 06-19-2024 Ferritin [Mass/volume] in Serum or Plasma Ferritin Lab Routine Routine general medical examination at a health care facility Expected: 06/20/2023 (Approximate), Expires: 06/19/2024 [facility] Work Phone: Comment on above: Expected: 06/20/2023 (Approximate), Expi res: 06/19/2024 Start: 06-20-2023 End: 06-19-2024 Hemoglobin A1c/Hemoglobin.total in Blood Hemoglobin A1C Lab Routine Routine general medical examination at a health care facility Expected: 06/20/2023 (Approximate), Expires: 06/19/2024 [facility] Work Phone: Comment on above: Expected: 06/20/2023 (Approximate), Expi res: 06/19/2024 Start: 06-20-2023 End: 06-19-2024 Iron and Iron binding capacity panel - Serum or Plasma Iron and TIBC Lab Routine Routine general medical examination at a health care facility Expected: 06/20/2023 (Approximate), Expires: 06/19/2024 [facility] Work Phone: Comment on above: Expected: 06/20/2023 (Approximate), Expi res: 06/19/2024 Start: 06-20-2023 End: 06-19-2024 Lipid 1996 panel - Serum or Plasma Lipid Panel Lab Routine Routine general medical examination at a health care facility Expected: 06/20/2023 (Approximate), Expires: 06/19/2024 [facility] Work Phone: Comment on above: Expected: 06/20/2023 (Approximate), Expi res: 06/19/2024 Start: 05-31-2023 Diabetes mellitus screening Diabetes Screening [facility] Start: 05-15-2023 End: 05-15-2023 Patient encounter procedure 05/15/2023 2:00 PM EST Off ice Visit [facility] [address] [facility] [address] [place] [address] Jhon Scott DO [address] [facility] [address] [place] [address] [facility] Start: 02-21-2023 End: 02-21-2023 Patient encounter procedure 02/21/2023 11:00 AM EST Of fice Visit [facility] [address] [phone] Jhon Scott, DO [address] [address] [facility] Start: 11-14-2022 End: 11-14-2022 Patient encounter procedure 11/14/2022 1:20 PM EDT Off ice Visit [facility] [address] [address] Jhon Scott, DO [address] [address] [facility] Start: 11-10-2022 COVID-19 Vaccine ( season) COVID-19 Vacc[address] () [facility] Start: 11-10-[address] [facility] Start: 08-15-2022 End: 08-15-2022 Patient encounter procedure 08/15/2022 1:40 PM EDT Off ice Visit [facility] [address] [address] Jhon Scott, DO [address] [address] [facility] Start: 06-22-2022 EPV, Provider: Jhon Scott, Status: Pen, Time: 2:00 PM EPV, Provider: Jhon Scott, Status: Pen, Time: 2:00 PM [facility] 205 DO Work Phone: Start: 06-16-2022 End: 06-16-2022 Patient encounter procedure 06/16/2022 10:40 AM EDT Of fice Visit [facility] [address] [phone] Jhon Scott DO [address] [facility] [address] [place] [address] [facility] Start: 11-10-2021 Influenza vaccination Influenza Vaccine (#1) [facility] Start: 12-15-2020 Screening for malignant neoplasm of cervix [facility] Start: 07-31-2020 History and physical examination, annual for health maintenance Wellness Visit [facility] Start: 12-15-2018 Hepatitis B Vaccines (1 of 3 - 19+ 3-dose series) Hepatitis B Vaccines (1 of 3 - 19+ 3-dose series) [facility] Start: 12-15-2018 Pneumococcal Vaccine: Ped or At-Risk (1 of 2 - PCV) Pneumococcal Vaccine: Ped or At-Risk (1 of 2 - PCV) [facility] Start: 12-15-2018 Pneumococcal Vaccine: Pediatrics and At-Risk Adult Patients (1 of 2 - PCV) Pneumococcal Vaccine: Pediatrics and At-Risk Adult Patients (1 of 2 - PCV) [facility] Start: 12-15-2017 COVID-19 Vaccine (#1) COVID-19 Vaccine (#1) [facility] Start: 12-15-2017 Hepatitis C screening Hepatitis C Screening [facility] Start: 12-15-2014 HIV screening HIV Screening [facility] Start: 12-15-2014 HPV Vaccines (1 - 3-dose series) HPV Vaccines (1 - 3-dose series) [facility] Start: 12-15-2012 Varicella vaccination Varicella Vaccines (1 of 2 - 13+ 2-dose series) [facility] Start: 2011 Depression screening using PHQ-9 (Patient Health Questionnaire 9) score Depression Screening/Follow-Up (PHQ-2/9) [facility] Start: 12-15-2010 HPV Vaccines (1 - 2-dose series) HPV Vaccines (1 - 2-dose series) [facility] Start: 12-15-2005 Pneumococcal Vaccine: Pediatrics (0 to 5 Years) and At-Risk Patients (6 to 64 Years) (1 of 2 - PCV) Pneumococcal Vaccine: Pediatrics (0 to 5 Years) and At-Risk Patients (6 to 64 Years) (1 of 2 - PCV) [facility] Start: 12-15-2000 MMR Vaccines (1 of 1 - Standard series) MMR Vaccines (1 of 1 - Standard series) [facility] Start: 12-15-2000 Varicella vaccination Varicella Vaccines (1 of 2 - 2-dose childhood series) [facility] Start: 06-15-2000 COVID-19 Vaccine (#1) COVID-19 Vaccine (#1) [facility] Start: 1999 Hepatitis B Vaccines (1 of 3 - 3-dose series) Hepatitis B Vaccines (1 of 3 - 3-dose series) [facility] Start: 1999 HIV screening HIV Screening [facility] Start: 1999 Screening for Chlamydia trachomatis Chlamydia Screening [facility] Start: 1999 Yearly Adult Physical Yearly Adult Physical [facility] End: 03-06-2024 Bacteria identified in Urine by Culture [facility] Work Phone: Comment on above: Once (Lab) for 1 Occurrences starting until 03/06/2024 CBC W Auto Different ial panel - Blood [facility] CBC W Auto Different ial panel - Blood [facility] Drugs identified in Urine by Screen method [facility] Erythrocyte mean cor puscular volume determination [facility] Esophagogastroduoden oscopy transoral diagnostic ESOPHAGOGASTRODUODENOSCOPY Epigastric pain Nausea [facility] End: 03-06-[address] [facility] Work Phone: Comment on above: Once for 1 Occurrences starting 03/06/20 until 03/06/2024 Hematocrit [Volume F raction] of Blood [facility] Hemoglobin [Mass/vol ume] in Blood [facility] Hemoglobin A1c/Hemoglobin.total in Blood [facility] Hepatitis C antibody measurement [facility] Leukocytes [#/volume] in Blood [facility] Mean corpuscular hem oglobin concentration determination [facility] Mean corpuscular hem oglobin determination [facility] Measurement of gluco se 2 hours after glucose challenge for glucose tolerance test [facility] Neutrophil count [facility] Neutrophil percent differential count [facility] Patient Education [facility] Work Phone: Patient referral [facility] Work Phone: Platelets [#/volume] in Blood [facility] Red blood cell count [facility] Red cell distributio n width determination [facility] Rubella IgG measurement [facility] Serologic test for syphilis [facility] Treponema sp Ab [Pre sence] in Serum [facility] End: 03-06-2024 Urinalysis complete W Reflex Culture panel - Urine [facility] Service Area Work Phone: Comment on above: Once (Lab) for 1 Occurrences starting until 03/06/2024 Urine culture [facility] Immunizations Immunization Date Immunization Notes Care Provider Maikel gao 03-12-2020 tetanus toxoid, reduced diphtheria toxoid, and acellular pertussis vaccine, adsorbed Jhon A Scott Work Phone: [facility] 205 DO Work Phone: Comment on above: Series: 05-23-2018 influenza virus vaccine, unspecified formulation Elsa Duran [facility] Payers Date Payer Category Payer Self-pay 2024 Jeffrey MOSER UE/PREF/HMO/PPO [id number] 2024 Jeffrey rudolph Managed [facility] [id number] 2024 Unknown [id number] 2023 Miscellaneous or Other [facility] [id number] [id number] 2022 Unknown [id number] 2022 Private Health Insurance [facility] [id number] 2022-Present [address] [place] [address] [id number]. [id number] 2021 Medicaid (Managed Care) [facility] [id number]. [id number] 2017 Unknown 2000 Unknown [id number] 2.16.840.1.319490.3.579. 2.651 1999 Unknown [id number] 2.16.840.1.644801.3.579. 2.356 1999 Unknown [id number] 2.16.840.1.160682.3.579. 2.356 1999 Unknown [id number] 2.16.840.1.459145.3.579. 2.1245 1999 Unknown [id number] 2.16.840.1.740217.3.579. 2.1245 1999 Unknown [id number] 2.16.840.1.525861.3.579. 2.1243 1999 Unknown [id number] 2.16.840.1.381179.3.579. 2.1244 1999 Unknown [id number] 2.16.840.1.851365.3.579. 2.1244 1999 Unknown [id number] 2.16.840.1.729507.3.579. 2.1244 1999 Unknown [id number] 2.16.840.1.362330.3.579. 2.1244 1999 Unknown [id number] 2.16.840.1.660807.3.579. 2.902 1999 Unknown [id number] 2.16.840.1.338730.3.579. 2.903 1999 Unknown [id number] 2.16.840.1.194123.3.579. 2.903 1999 Unknown [id number] 2.840.1.866554.3.579. 2.479 1999 Unknown [id number] 2.840.1.372706.3.579. 2.479 1978 Unknown [id number] 2.840.1.639885.3.579. 2.717 Private Health Insurance [id number] Unknown [id number] Unknown [id number] Unknown [id number] Unknown [id number] 2.840.1.699118.3.579. 2.462 Unknown [id number] 2.840.1.837029.3.579. 2.462 Unknown [id number] .840.1.527929.3.579. 2.462 Unknown [id number] .840.1.466719.3.579. 2.462 Unknown [id number] .840.1.798119.3.579. 2.462 Unknown [id number] .840.1.729949.3.579. 2.462 Unknown [id number] .840.1.676982.3.579. 2.462 Unknown [id number] .840.1.571933.3.579. 2.462 Unknown [id number] .840.1.797506.3.579. 2.462 Unknown [id number] 2.840.1.262027.3.579. 2.462 Unknown [id number] 840.1.383853.3.579. 2.462 Unknown [id number] 2.840.1.711832.3.579. 2.462 Unknown [id number] 2.16.840.1.963476.3.579. 2.462 Unknown [id number] 2.16.840.1.721030.3.579. 2.462 Unknown [id number] 2.16.840.1.138464.3.579. 2.462 Unknown [id number] 2.16.840.1.355604.3.579. 2.462 Unknown [id number] 2.16.840.1.903474.3.579. 2.462 Unknown [id number] 2.16.840.1.682107.3.579. 2.462 Unknown [id number] 2.16.840.1.402420.3.579. 2.462 Unknown [id number] 2.16.840.1.954361.3.579. 2.462 Unknown [id number] 2.16.840.1.485926.3.579. 2.462 Unknown [id number] 2.16.840.1.121563.3.579. 2.462 Unknown [id number] 2.16.840.1.992868.3.579. 2.462 Social History Date Type Detail Facility Start: 07-18-2022 End: 04-03-2024 Nicotine dependence due to vaping tobacco product Nicotine dependence due to vaping tobacco product [facility] 205 DO Work Phone: Start: 06-02-2022 End: 06-13-2024 Tobacco smoking status NHIS Ex-smoker [facility] History of tobacco use Current smoker [facility] Work Phone: History of tobacco use Cigarette Smoker [facility] Work Phone: Start: 03-24-2021 End: 06-02-2022 Tobacco use and exposure Smokeless tobacco non-user [facility] Work Phone: Start: 07-18-2022 End: 04-03-2024 Tobacco use panel [facility] Start: 2000 Sex Assigned At Not on file [facility] Work Phone: Start: 05-23-2022 End: 03-06-2024 Exposure to SARS-CoV-2 (event) Not sure [facility] Start: 05-20-2023 End: 04-03-2024 Alcohol intake Ex-drinker (finding) [facility] Work Phone: Start: 03-24-2021 Gender identity Identifies as female gender (finding) [facility] Start: 03-24-2021 Sexual orientation Heterosexual (finding) [facility] Start: 12-28-2019 Vapor Vapor [facility] Start: 05-20-2024 End: 06-24-2024 Sex Female (finding) [facility] Start: 2000 Sex Assigned At Female [facility] Clinical Notes 03-13-2022 to 11-18-2024 Note Date & Type Note Facility 11-18-2024 Progress note [facility] 11-18-2024 Progress note Note Date/Time November 18, 2024 2:31pm [facility] [address], [address] [place] [address] OFFICE VISIT Date of Service: 11/18/24 MR#: [id number] Acct: [id number] Name: RADHA BOONE Rep #: [id number] : 2000 Provider: Dr. Ruel Mercado MD Age/Sex: 23/F Location: [facility] [place] Status: Signed Intake Vital Signs 10/10/24 10:15 11/07/24 10:57 11/18/24 13:55 Height 5 ft 7 in 5 ft 7 in 5 ft 7 in Weight: 291 lb 8 oz BMI 45.6 BP 119/85 H Intake Visit Reasons: 34 WK OB *CSECTION Practice Manager Required: No Is patient in pain?: No Feel stressed/tense/nervous/anxious/difficulty sleeping: not at all Allergies No Known Allergies Allergy (Verified 11/18/24 13:52) Medications ?Medication ?Instructions ?Recorded ?Confirmed ?Type vits no.105-iron 30 1 ea PO DAILY 12/28/19 History mg-folic acid 1.4 mg-dha 300 mg oral pack escitalopram oxalate 20 mg tablet 20 mg PO QDAY #90 ta bs 08/12/24 11/18/24 Rx (Lexapro) famotidine 20 mg tablet (Pepcid) 20 mg PO BID #60 tabs 11/07/24 11/18/24 Rx Last Menstrual Period: 03/26/24 Zika: Zika virus screening: Negative : No PFSH PFSH Medical History Seasonal allergies Depression Anxiety Surgical History Previous section Kohler teeth extracted Family History Mother Thyroid disorder, Onset Age: 38 Hypothyroid Diabetes GDM with both pregnancies Grandmother Thyroid disorder, Onset Age: 55 Maternal-thyroid nodules benign Diabetes Maternal type 2 Grandmother Diabetes Paternal type 2 Social History adopted: No household members: spouse and children housing: house number of children: 1 current occupational status: unemployed current occupation: [employer] pets and animals: Yes (Avoid litterbox) pets [...] physical activity do you participate in: none 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 Date Name GA/Weeks Outcome Route Bth Weight Gen Labor Lgth Anesthesia Del Locatn Provider FOB 08/06/20 Alyssa 39 live - full term 8#1oz Female spinal [facility] Dr. Enedina Balbuena Delivery Date: 08/06/20 Last Updated by: Rona Huff meconium & decels, prolonged labor HPI 34 WK OB *CSECTION Details: RADHA BOONE is a 23 year old who presents for routine OB visit. OB Visit RICHARD Calculator Estimated Delivery Date Method Current WG Current Estimate 12/31/24 LMP (Certain) 33w 6d Other Estimates 12/30/24 Ultrasound #1 34w 0d Expected Delivery Route/Plan plans repeat C/S with SM Specific Issue/Plans Covid status: [] Flu vaccine: [] Tdap vaccine: declined Rhogam: na LARC form signed: declined movement and labor precautions reviewed. Problem list reviewed and updated with the [...] (+3 lb) 128/83 Negative -?-?-?-?-?-?-?-?-?-?-?-?- Negative 145 -?-?-?-?--?-?-?-?-?-?-?-?- KW- no vb/crampi ng for last few days. doing well. US scheduled for 08/07. has appt with counselor after appt but doing well. 07/16/24 -?-?-?-?-?-?-?-?-?-?-?-?- 16w 0d 254 lb 4 oz (+4 lb 4 oz) 118/72 Negative -?-?-?-?-?-?-?-?-?-?-?-?- Negative 144 -?-?-?-?-?-?-?-?-?-?-?-?- MH-No VB. Nausea resolved. Feeling flutters. 07/21/24 -?-?-?-?-?-?-?-?-?-?-?-?- 16w 5d 254 lb 8 oz (+4 lb 8 oz) 118/80 Negative -?-?--?-?-?-?-?-?-?-?-?-?- Negative 165 -?-?-?-?-?-?-?-?-?-?-?-?- KW- work in for [...] trauma and reviewed. struggled with the epidural. 10/10/24 -?-?-?-?-?-?-?-?-?-?-?-?- 28w 2d 280 lb 2 oz (+30 lb 2 oz) 107/69 Negative -?-?-?-?-?-?-?-?-?-?-?-?- Negative 155 29 -?-?-?-?-?-?-?-?-?-?-?-?- JV- declined tda p today JV- declined tdap today. loo enrrique at images of ultrsound from sunday and placenta is no longer over the cervix. ok to cancel next scan. growth was also adequate. no lof, vaginal bleeding, or dec fm. 10/21/24 -?-?-?-?-?-?-?--?-?-?-?-?- 29w 6d 282 lb 4 oz (+32 lb 4 oz) 117/81 Negative -?-?-?-?-?-?-?-?-?-?-?-?- Negative 145 31 -?-?-?-?-?-?-?-?-?-?-?-?- SM- discussed an d will get 3 hour gtt SM- discussed and will get 3 hour gtt n ovb lof good fm n oreuglar ctx 11/07/24 -?-?-?-?-?-?-?-?-?-?-?-?- 32w 2d 290 lb (+40 lb) 123/86 Negative -?-?-?-?-?-?-?-?-?-?-?-?- Negative 140 33 -?-?-?-?-?-?-?-?-?-?-?-?- SM- no vb lof go od fm n oreuglar ctx nl 3 hr 11/18/24 -?-?-?-?-?-?-?-?-?-?-?-?- 33w 6d 291 lb 8 oz (+41 lb 8 oz) 119/85 Negative -?-?-?-?-?-?-?-?-?-?-?-?- Negative 150 35 -?-?-?-?-?-?-?-?-?-?-?-?- SM- feeling some more pressure no vb lof good fm nor egular ctx increased discharge ACOG First Trimester First Trimester: Discussed Second [...] Negative Last Edit by Matt Hartmann on 11/18/24 13:57 Office Urine Protein Negative Last Edit by Matt Hartmann on 11/18/24 13:57 Coding Level of Care Code OB Routine Diagnoses Abnormal glucose affecting O99.810 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 History of nicotine vaping Z87.891 Supervision of high risk in second trimester O09.92 Trimester: second trimester 33 weeks gestation of Z3A.33 Weeks of gestation: 33 weeks Premature ventricular contractions I49.3 Obesity affecting in second trimester, unspecified obesity type O99.212 Obesity type affecting : unspecified obesity Trimester: second trimester Hiatal hernia K44.9 Previous section Z98.891 Assessment and Plan Assessment and Plan (1) Abnormal glucose affecting : Status: Acute Comment: nl 3 hr GTT (2) Marijuana smoker in remission: Status: Acute Comment: last used 03/25/24, education provided, informed of initial tox screen & random testing during (3) History of nicotine vaping: Status: Acute Comment: Quit 01/11/24 (4) Supervision of high-risk : Status: Acute Qualifiers: Trimester: second trimester Qualified Code(s): O09.92 - Supervision of high risk , unspecified, second trimester Comment: PRR, , RICHARD 12/31/24 Sung Thrasher, Bridger (5) : Status: Acute Qualifiers: Weeks of gestation: 33 weeks Qualified Code(s): Z3A.33 - 33 weeks gestation of Comment: discussed NIPT & Carrier testing- Undecided NIPT-Low Risk. Rpt 08/19 to complete anatomy. (6) Premature ventricular contractions: Status: Acute Comment: started with COVID in last (7) Obesity affecting : Status: Acute Qualifiers: Obesity type affecting : unspecified obesity Trimester: second trimester Qualified Code(s): O99.212 - Obesity complicating , second trimester Comment: HgbA1c NSTs at 37 weeks (8) Hiatal hernia: Status: Acute Comment: dx 03/2024, small hernia (9) Previous section: Status: Acute Comment: plans repeat C/S. RLTCS BS 12/24/24 SM. Orders: Orders POC Urinalysis 2 Dip (Clinic) Today 11/18/24 1431 <Electronically signed by Ana Laura balderas MD> Date _ Ana Laura Mercado MD [facility] Signature: Date (if applicable) CC: ~ [facility] Work Phone: [phone] [facility] [address] [place] [address], [address] [place] [address] OFFICE VISIT Date of Service: 11/07/24 MR#: [id number] Acct: [id number] Name: RADHA BOONE Rep #: [id number] : 2000 Provider: Dr. Ruel Mercado MD Age/Sex: 23/F Location: [facility] [place] Status: Signed Intake Vital Signs 10/10/24 10:15 10/21/24 09:23 11/07/24 10:57 Height 5 ft 7 in 5 ft 7 in 5 ft 7 in Weight: 282 lb 4 oz 290 lb BMI 44.1 45.4 BP 117/81 H 123/86 H Intake Visit Reasons: 32 WK OB *CSECTION/SM Practice Manager Required: No Is patient in pain?: No Allergies No Known Allergies Allergy (Verified 11/07/24 10:56) Medications ?Medication ?Instructions ?Recorded ?Confirmed ?Type vits no.105-iron 30 1 ea PO DAILY 12/28/19 History mg-folic acid 1.4 mg-dha 300 mg oral pack escitalopram oxalate 20 mg tablet 20 mg PO QDAY #90 ta bs 08/12/24 11/07/24 Rx (Lexapro) famotidine 20 mg tablet (Pepcid) 20 mg PO BID #60 tabs 11/07/24 11/07/24 Rx Last Menstrual Period: 03/26/24 Zika: Zika virus screening: Negative : No PFSH PFSH Medical History Seasonal allergies Depression Anxiety Surgical History Previous section Kohler teeth extracted Family History Mother Thyroid disorder, Onset Age: 38 Hypothyroid Diabetes GDM with both pregnancies Grandmother Thyroid disorder, Onset Age: 55 Maternal-thyroid nodules benign Diabetes Maternal type 2 Grandmother Diabetes Paternal type 2 Social History adopted: No household members: spouse and children housing: house number of children: 1 current occupational status: unemployed current occupation: [employer] pets and animals: Yes (Avoid litterbox) pets [...] physical activity do you participate in: none janet/advent: [employer] seatbelt use: always do you feel safe at home: Yes 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 Date Name GA/Weeks Outcome Route Bth Weight Infant Gen Labor Lgth Anesthesia Del Locatn Provider FOB 08/06/20 Novaleigh 39 live - full term 8#1oz Female spinal [facility] Dr. Enedina Balbuena Delivery Date: 08/06/20 Last Updated by: Rona Huff meconium & decels, prolonged labor HPI 32 WK OB *CSECTION/SM Details: RADHA BOONE is a 23 year old who presents for routine OB visit. OB Visit RICHARD Calculator Estimated Delivery Date Method Current WG Current Estimate 12/31/24 LMP (Certain) 32w 2d Other Estimates 12/30/24 Ultrasound #1 32w 3d Expected Delivery Route/Plan plans repeat C/S with SM Specific Issue/Plans Covid status: [] Flu vaccine: [] Tdap vaccine: declined Rhogam: na LARC form signed: declined movement and labor precautions reviewed. Problem list reviewed and updated with the most current plan of care details and appropriate ordersplaced. Relevant counseling for the gestational age provided. Continue routine care and follow up unless otherwise noted in visit notes/problem list details Initial Weight: 250 lb Date -?-?-?-?-?-?-?--?-?-?-?-?- EGA Weight BP Urine Prot -?-?-?-?-?-?-?-?-?-?-?-?- Glucose [...] oz) 118/72 Negative -?-?-?-?-?-?-?-?-?-?-?-?- Negative 144 -?-?-?-?-?-?-?-?-?-?-?-?- MH-No VB. Nausea resolved. Feeling flutters. 07/21/24 -?-?-?-?-?-?-?-?-?-?-?-?- 16w 5d 254 lb 8 oz (+4 lb 8 oz) 118/80 Negative -?-?-?-?-?-?-?-?-?-?-?-?- Negative 165 -?--?-?-?-?-?-?-?-?-?-?-?- KW- work in for FHT. having increased anxiety about wellbeing. fht and movement on US today. 08/11/24 -?-?-?-?-?-?-?-?-?-?-?-?- 19w 5d 262 lb 4 oz (+12 lb 4 oz) 112/75 Negative -?-?-?-?-?-?-?-?-?-?-?-?- Negative 163 -?-?-?-?-?-?-?-?-?-?-?-?- MH-No VB. Good Krishna Browne on US. Reviewed US, rpt sched 08/19 to complete anatomy. 09/11/24 -?-?-?-?-?-?-?-?-?-?-?-?- 24w 1d 269 lb (+19 lb) 112/77 Trace -?-?-?-?-?-?-?-?-?-?-?-?- Negative 150 24 -?-?-?-?-?-?-?-?-?-?-?-?- SM- no vb lof go od fm nor euglar ctx discussed previous trauma and reviewed. struggled with the epidural. 10/10/24 -?-?-?-?-?-?-?-?-?-?-?-?- 28w 2d 280 lb 2 oz (+30 lb 2 oz) 107/69 Negative -?-?-?-?-?-?-?-?-?-?-?-?- Negative 155 29 -?-?-?-?-?-?-?-?-?-?-?-?- JV- declined tda p today JV- declined tdap today. loo at images of ultrsound from sunday and placenta is no longer over the cervix. ok to cancel next scan. growth was also adequate. no lof, vaginal bleeding, or dec fm. 10/21/24 -?-?-?-?-?-?-?-?-?-?-?-?- 29w 6d 282 lb 4 oz (+32 lb 4 oz) 117/81 Negative -?-?-?-?-?-?-?-?-?-?-?-?- Negative 145 31 -?-?-?-?-?-?-?-?-?-?-?-?- SM- discussed an d will get 3 hour gtt SM- discussed and will get 3 hour gtt n ovb lof good fm n oreuglar ctx 11/07/24 -?-?-?-?-?-?-?-?-?-?-?-?- 32w 2d 290 lb (+40 lb) 123/86 -?-?-?-?-?-?--?-?-?-?-?-?- 140 33 -?-?-?-?-?-?-?-?-?-?-?-?- SM- no vb lof go od fm n oreuglar ctx nl 3 hr ACOG First Trimester First Trimester: Discussed Second Trimester Second Trimester: Signs and Symptoms of Labor, Selecting a care provider, Reproductive Life Planning & Contreception, Care Planning, Depression/Anxiety and Intimate Partner Violence; Discussed Tobacco Cessation Third Trimester Third Trimester: Pain Management Plans, Labor support person(s), Immediate Larc, Signs and Symptoms of Preeclampsia, Infant Feeding No , [place] Education and Family Medical Leave or Disability Forms ROS Const Denies fever(s) GI Reports as per HPI and Denies abdominal pain Reports as per HPI, Denies abnormal vaginal bleeding, Denies dysuria and Denies vaginal discharge Exam Const General: healthy appearing, comfortable and no acute distress GI Inspection: normal to inspection Palpation: soft and nontender Coding Level of Care Code OB Routine Diagnoses Abnormal glucose affecting O99.810 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 History of nicotine vaping Z87.891 Supervision of high risk in second trimester O09.92 Trimester: second trimester 32 weeks gestation of Z3A.32 Weeks of gestation: 32 weeks Premature ventricular contractions I49.3 Obesity affecting in second trimester, unspecified obesity type O99.212 Obesity type affecting : unspecified obesity Trimester: second trimester Hiatal hernia K44.9 Previous section Z98.891 Assessment and Plan Assessment and Plan (1) Abnormal glucose affecting : Status: Acute Comment: nl 3 hr GTT (2) Marijuana smoker in remission: Status: Acute Comment: last used 03/25/24, education provided, informed of initial tox screen & random testing during (3) History of nicotine vaping: Status: Acute Comment: Quit 01/11/24 (4) Supervision of high-risk : Status: Acute Qualifiers: Trimester: second trimester Qualified Code(s): O09.92 - Supervision of high risk , unspecified, second trimester Comment: PRR, , RICHARD 12/31/24 Sung Thrasher, Bridger (5) : Status: Acute Qualifiers: Weeks of gestation: 32 weeks Qualified Code(s): Z3A.32 - 32 weeks gestation of Comment: discussed NIPT & Carrier testing- Undecided NIPT-Low Risk. Rpt US 08/19 to complete anatomy. (6) Premature ventricular contractions: Status: Acute Comment: started with COVID in last (7) Obesity affecting : Status: Acute Qualifiers: Obesity type affecting : unspecified obesity Trimester: second trimester Qualified Code(s): O99.212 - Obesity complicating , second trimester Comment: HgbA1c NSTs at 37 weeks (8) Hiatal hernia: Status: Acute Comment: dx 03/2024, small hernia (9) Previous section: Status: Acute Comment: plans repeat C/S. RLTCS BS 12/24/24 . Orders: Orders POC Urinalysis 2 Dip (Clinic) Today Medications: New famotidine (Pepcid) 20 mg PO BID 60 tabs 6RF 11/07/24 112Malachi balderas MD> Date _ Ana Laura Mercado MD [facility] Signature: Date (if applicable) CC: ~ [facility]08-12-2025 [facility] [address] [place] [address], [address] [place] [address] OFFICE VISIT Date of Service: 10/21/24 MR#: [id number] Acct: [id number] Name: RADHA BOONE Rep #: [id number] : 2000 Provider: Dr. Ruel Mercado MD Age/Sex: 23/F Location: [facility] [place] Status: Signed Intake Vital Signs 08/11/24 10:06 10/10/24 10:15 10/21/24 09:23 Height 5 ft 7 in 5 ft 7 in 5 ft 7 in Weight: 282 lb 4 oz BMI 44.1 BP 117/81 H Intake Visit Reasons: 30 WK OB *CSECTION Practice Manager Required: No Is patient in pain?: No Allergies No Known Allergies Allergy (Verified 10/21/24 09:24) Medications ?Medication ?Instructions ?Recorded ?Confirmed ?Type vit no.105-iron 30 1 ea PO DAILY 12/28/1903/05 History mg-folic acid 1.4 mg-dha 300 mg oral pack escitalopram oxalate 20 mg tablet 20 mg PO QDAY #90 ta bs 08/12/24 10/21/24 Rx (Lexapro) Last Menstrual Period: 03/26/24 Zika: Zika virus screening: Negative : No PFSH PFSH Medical History Seasonal allergies Depression Anxiety Surgical History Previous section Kohler teeth extracted Family History Mother Thyroid disorder, Onset Age: 38 Hypothyroid Diabetes GDM with both pregnancies Grandmother Thyroid disorder, Onset Age: 55 Maternal-thyroid nodules benign Diabetes Maternal type 2 Grandmother Diabetes Paternal type 2 Social History adopted: No household members: spouse and children housing: house number of children: 1 current occupational status: unemployed current occupation: [employer] pets and animals: Yes (Avoid litterbox) pets [...] physical activity do you participate in: none janet/advent: [employer] seatbelt use: always do you feel safe at home: Yes 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 Date Name GA/Weeks Outcome Route Bth Weight Infant Gen Labor Lgth Anesthesia Del Locatn Provider FOB 08/06/20 Alyssa 39 live - full term 8#1oz Female spinal [facility] Dr. Enedina Balbuena Delivery Date: 08/06/20 Last Updated by: Rona Huff meconium & decels, prolonged labor HPI 30 WK OB *CSECTION Details: RADHA BOONE is a 23 year old who presents for routine OB visit. OB Visit RICHARD Calculator Estimated Delivery Date Method Current WG Current Estimate 12/31/24 LMP (Certain) 29w 6d Other Estimates 12/30/24 Ultrasound #1 30w 0d Expected Delivery Route/Plan plans repeat C/S with SM Specific Issue/Plans Covid status: [] Flu vaccine: [] Tdap vaccine: [] Rhogam: [] LARC form signed: [] Problem list reviewed and updated with the most current plan of care details and appropriate ordersplaced. Relevant counseling for the gestational age provided. Continue routine care and follow up unless otherwise noted in visit notes/problem list details Initial Weight: 250 lb Date -?-?-?-?-?-?-?-?-?-?-?-?- EGA Weight BP Urine Prot -?-?-?-?-?-?-?-?-?-?--?-?- Glucose FHR FuHt Pres Dilation -?-?-?-?-?-?-?-?-?-?-?-?- Effaced [...] 4 oz (+5 lb 4 oz) 128/84 -?-?-?-?-?-?-?-?--?-?-?-?- 150 -?-?-?-?-?-?-?-?-?-?-?-?- JV- has some bro wn [...] oz) 118/72 Negative -?-?-?-?-?-?-?-?-?-?-?-?- Negative 144 -?-?-?-?-?-?-?-?-?-?-?-?- MH-No VB. Nausea resolved. Feeling flutters. 07/21/24 -?-?-?-?-?-?-?-?-?-?-?-?- 16w 5d 254 lb 8 oz (+4 lb 8 oz) 118/80 Negative -?-?-?-?-?-?-?-?-?-?-?-?- Negative 165 -?-?-?-?-?-?-?-?-?-?-?-?- KW- work in for FHT. having increased anxiety about wellbeing. fht and movement on US today. 08/11/24 -?-?-?-?-?-?--?-?-?-?-?-?- 19w 5d 262 lb 4 oz (+12 [...] trauma and reviewed. struggled with the epidural. 10/10/24 -?-?-?-?-?-?-?-?-?-?-?-?- 28w 2d 280 lb 2 oz (+30 lb 2 oz) 107/69 Negative -?-?-?-?-?-?-?-?-?-?-?-?- Negative 155 29 -?-?-?-?-?-?-?-?-?-?-?-?- JV- declined tda p today JV- declined tdap today. kassidy osuna at images of ultrsound from sunday and placenta is no longer over the cervix. ok to cancel next scan. growth was also adequate. no lof, vaginal bleeding, or dec fm. 10/21/24 -?-?-?-?-?-?-?-?-?-?-?-?- 29w 6d 282 lb 4 oz (+32 lb 4 oz) 117/81 Negative -?-?-?-?-?-?-?-?-?-?-?-?- Negative 145 31 -?-?-?-?-?-?-?-?-?-?-?-?- SM- discussed an d will get 3 hour gtt SM- discussed and will get 3 hour gtt n ovb lof good fm n oreuglar ctx ACOG First Trimester First Trimester: Discussed Second Trimester Second Trimester: Signs and Symptoms of Labor, Selecting a care provider, Reproductive Life Planning & Contreception, Care Planning, Depression/Anxiety and Intimate Partner Violence; Discussed Tobacco Cessation Third Trimester Third Trimester: Pain Management Plans, Labor support person(s), Immediate Larc, Signs and Symptoms of Preeclampsia, Infant Feeding No , [place] Education and Family Medical Leave or Disability Forms Results POC Urinalysis 2 Dip (Clinic) Office Urine Glucose Negative Last Edit by Matt Hartmann on 10/21/24 09:30 Office Urine Protein Negative Last Edit by Matt Hartmann on 10/21/24 09:30 Coding Level of Care Code OB Routine Diagnoses Vaginal bleeding during O46.90 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 US pending. d/c home (2) Marijuana smoker in remission: Status: Acute Comment: last used 03/25/24, education provided, informed of initial tox screen & random testing during (3) History of nicotine vaping: Status: Acute Comment: Quit 01/11/24 (4) Supervision of high-risk : Status: Acute Qualifiers: Trimester: second trimester Qualified Code(s): O09.92 - Supervision of high risk , unspecified, second trimester Comment: PRR, , RICHARD 12/31/24 Sung Thrasher, Bridger (5) : Status: Acute Qualifiers: Weeks of gestation: 29 weeks Qualified Code(s): Z3A.29 - 29 weeks gestation of Comment: discussed NIPT & Carrier testing- Undecided NIPT-Low Risk. Rpt US 08/19 to complete anatomy. (6) Premature ventricular contractions: Status: Acute Comment: started with COVID in last (7) Obesity affecting : Status: Acute Qualifiers: Obesity type affecting : unspecified obesity Trimester: second trimester Qualified Code(s): O99.212 - Obesity complicating , second trimester Comment: HgbA1c NSTs at 37 weeks (8) Hiatal hernia: Status: Acute Comment: dx 03/2024, small hernia (9) Previous section: Status: Acute Comment: plans repeat C/S. RLTCS BS 12/24/24 SM. (10) Abnormal glucose affecting : Status: Acute Comment: planning 3 hour Orders: Orders POC Urinalysis 2 Dip (Clinic) Today 10/21/24 1010 andrey SOOD> Date _ Ana Laura Mercado MD [facility] Signature: Date (if applicable) CC: ~ [facility]08-01-2025 [facility] [address] [place] [address], [address] [place] [address] OFFICE VISIT Date of Service: 10/10/24 MR#: [id number] Acct: [id number] Name: RADHA BOONE Rep #: [id number] : 2000 Provider: Dr. Ursula Weldon DO Age/Sex: 23/F Location: [facility] [place] Status: Signed Intake Vital Signs 08/11/24 10:06 10/05/24 14:53 10/10/24 10:14 10/10/24 10:15 Height 5 ft 7 in 5 ft 7 in 5 ft 7 in 5 ft 7 in Weight: 280 lb 2 oz BMI 43.9 BP 107/69 Intake Visit Reasons: 28WK OB/GLUCOSE *CSECTION Practice Manager Required: No Is patient in pain?: No Allergies No Known Allergies Allergy (Verified 10/10/24 10:13) Medications ?Medication ?Instructions ?Recorded ?Confirmed ?Type vit no.105-iron 30 1 ea PO DAILY 12/28/1904/05 History mg-folic acid 1.4 mg-dha 300 mg oral pack escitalopram oxalate 20 mg tablet 20 mg PO QDAY #90 ta bs 08/12/24 10/10/24 Rx (Lexapro) Last Menstrual Period: 03/26/24 Zika: Zika virus screening: Negative : No PFSH PFSH Medical History Seasonal allergies Depression Anxiety Surgical History Previous section Kohler teeth extracted Family History Mother Thyroid disorder, Onset Age: 38 Hypothyroid Diabetes GDM with both pregnancies Grandmother Thyroid disorder, Onset Age: 55 Maternal-thyroid nodules benign Diabetes Maternal type 2 Grandmother Diabetes Paternal type 2 Social History adopted: No household members: spouse and children housing: house number of children: 1 current occupational status: unemployed current occupation: [employer] pets and animals: Yes (Avoid litterbox) pets [...] physical activity do you participate in: none janet/advent: [employer] seatbelt use: always do you feel safe at home: Yes 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 Date Name GA/Weeks Outcome Route Bth Weight Gen Labor Lgth Anesthesia Del Locatn Provider FOB 08/06/20 Revaaleigh 39 live - full term 8#1oz Female spinal [facility] Dr. Enedina Balbuena Delivery Date: 08/06/20 Last Updated by: Rona Huff meconium & decels, prolonged labor HPI 28WK OB/GLUCOSE *CSECTION Details: RADHA BOONE is a 23 year old who presents for routine OB visit. OB Visit RICHARD Calculator Estimated Delivery Date Method Current WG Current Estimate 12/31/24 LMP (Certain) 28w 2d Other Estimates 12/30/24 Ultrasound #1 28w 3d Expected Delivery Route/Plan plans repeat C/S Specific Issue/Plans Covid status: [] Flu vaccine: [] Tdap vaccine: [] Rhogam: [] LARC form signed: [] Problem list reviewed and updated with the most current plan of care details and appropriate ordersplaced. Relevant counseling for the gestational age provided. Continue routine care and follow up unless otherwise noted in visit notes/problem list details Initial Weight: 250 lb Date -?-?-?-?-?-?-?-?-?-?-?-?- EGA Weight BP Urine Prot -?-?-?-?-?-?-?-?-?-?-?-?- Glucose FHR FuHt Pres Dilation -?-?-?-?-?-?-?-?-?-?-?-?- Effaced St Visit Note 05/23/24 -?-?-?-?--?-?-?-?-?-?-?-?- 8w 2d 250 lb (+0 oz) 108/79 [...] 4 oz) 118/72 Negative -?-?-?-?-?-?-?-?-?-?-?-?- Negative 144 -?-?-?--?-?-?-?-?-?-?-?-?- MH-No VB. Nausea resolved. Feeling flutters. 07/21/24 -?-?-?-?-?-?-?-?-?-?-?-?- 16w 5d 254 lb 8 oz (+4 lb 8 oz) 118/80 Negative -?-?-?-?-?-?-?-?-?-?-?-?- Negative 165 -?-?-?-?-?-?-?-?-?-?-?-?- KW- work in for FHT. having increased anxiety about wellbeing. fht and movement on US today. 08/11/24 -?-?-?-?-?-?-?-?-?-?-?-?- 19w 5d 262 lb 4 oz (+12 lb 4 oz) 112/75 Negative -?-?-?-?-?-?-?-?-?-?-?-?- Negative 163 -?-?-?-?-?-?-?-?-?-?-?-?- MH-No VB. Gustavo Browne on US. Reviewed US, rpt sched 08/19 to complete anatomy. 09/11/24 -?-?-?-?-?-?-?-?-?-?-?-?- 24w 1d 269 lb (+19 lb) 112/77 Trace -?-?-?-?-?-?-?-?-?-?-?-?- Negative 150 24 -?-?-?-?-?-?-?-?-?-?-?-?- SM- no vb lof go od fm nor euglar ctx discussed previous trauma and reviewed. struggled with the epidural. 10/10/24 -?-?-?-?-?-?-?-?-?-?-?-?- 28w 2d 280 lb 2 oz (+30 lb 2 oz) 107/69 Negative -?-?-?-?-?-?-?-?-?-?-?-?- Negative 155 29 -?-?-?-?-?-?-?-?-?-?-?-?- JV- declined tda p today JV- declined tdap today. loo enrrique at images of ultrsound from sunday and placenta is no longer over the cervix. ok to cancel next scan. growth was also adequate. no lof, vaginal bleeding, or dec fm. ACOG First Trimester First Trimester: Discussed Second Trimester Second Trimester: Signs and Symptoms of Labor, Selecting a care provider, Reproductive Life Planning & Contreception, Care Planning, Depression/Anxiety and Intimate Partner Violence; Discussed Tobacco Cessation Third Trimester Third Trimester: Pain Management Plans, Labor support person(s), Immediate Larc, Signs and Symptoms of Preeclampsia, Feeding No , Education and Family Medical Leave or Disability Forms ROS Const Denies fever(s) GI Reports as per HPI and Denies abdominal pain Reports as per HPI, Denies abnormal vaginal bleeding, Denies dysuria and Denies vaginal discharge Exam Const General: healthy appearing, comfortable and no acute distress GI Inspection: normal to inspection Palpation: soft and nontender Results POC Urinalysis 2 Dip (Clinic) Office Urine Glucose Negative Last Edit by Tiki Arrieta on 10/10/24 10: 57 Office Urine Protein Negative Last Edit by Tiki Arrieta on 10/10/24 10: 57 Coding Level of Care Code OB Routine Diagnoses Vaginal bleeding during O46.90 Complete placenta previa nos or without hemorrhage, second trimester O44.02 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 US pending. d/c home (2) Complete placenta previa nos or without hemorrhage, second trimester: Status: Acute Comment: repeat US at 28 weeks Pelvic rest, resolved (3) Marijuana smoker in remission: Status: Acute Comment: last used 03/25/24, education provided, informed of initial tox screen & random testing during (4) History of nicotine vaping: Status: Acute Comment: Quit 01/11/24 (5) Supervision of high-risk : Status: Acute Qualifiers: Trimester: second trimester Qualified Code(s): O09.92 - Supervision of high risk , unspecified, second trimester Comment: PRR, , RICHARD 12/31/24 Boy, ELENA Shah, Bridger (6) : Status: Acute Qualifiers: Weeks of gestation: 28 weeks Qualified Code(s): Z3A.28 - 28 weeks gestation of Comment: discussed NIPT & Carrier testing- Undecided NIPT-Low Risk. Rpt US 08/19 to complete anatomy. (7) Premature ventricular contractions: Status: Acute Comment: started with COVID in last (8) Obesity affecting : Status: Acute Qualifiers: Obesity type affecting : unspecified obesity Trimester: second trimester Qualified Code(s): O99.212 - Obesity complicating , second trimester Comment: HgbA1c NSTs at 37 weeks (9) Hiatal hernia: Status: Acute Comment: dx 03/2024, small hernia (10) Previous section: Status: Acute Comment: plans repeat C/S. RLTCS BS 12/24/24 . Orders: Orders POC Urinalysis 2 Dip (Clinic) Today 10/10/24 1105 e Velde DO> Date _ Elissa Snell Signature: Date (if applicable) CC: ~ [facility]07-27-2025 Radiology Diagnostic study note [facility] Imaging Services [address] [place] [address] OB Limited With Biometrics MR#: [id number] Acct: [id number] Name: RADHA BOONE Rep #: [id number] : 2000 F 23 From: Zeinab Anguiano MD PCP: JHON SCOTT DO Status: REG CLI Study:OB Limited With Biometrics Date of Exam : 10/05/24 Exam# [id number] Ordering Dr: Amada Black CNM PROCEDURE: OB LIMITED WITH BIOMETRICS 10/05/2024 REASON FOR EXAM: COMPLETE PREVIA, FOCUS ON PLACENTA TECHNIQUE: OB LIMITED WITH BIOMETRICS' transabdominal imaging. COMPARISON: none FINDINGS Intrauterine with position in cephalic position. cardiac activity of 143 beats per minute. Maximum vertical pocket of 3.5 cm. ITA of 10cm. Placental position is posterior and within normal limits. No placenta previa is noted on today's ultrasound. Cervical length of 4.2cm. Biometry: BPD of 7.2 cm. 75%. OFD of 9.1 cm. 91%. HC of 26.1 cm. 49%. AC of 24.5 cm. 78%. FL of 5.1 cm. 33%. estimated weight of 1223g. 67% Overall sonographic gestation age of 28 weeks and 2 days. RICHARD of 12/26/24 US/OB Limited With Biometrics IMPRESSION: Sonographic gestation age of 28 weeks and 2 days. RICHARD of 12/26/24 Biometry results as above. Reading Location: [facility] CC: BUTCH Black; JHON SCOTT DO ~ Customer Success Associate: Signed [facility]07-27-2025 Progress note [facility] Medical Records Department [address] [place] [address] OB Triage Progress Note 10/05/24 1715 MR#: [id number] Acct: [id number] Name: RADHA BOONE ILAN Rep #:[id number] : 2000 23 From: Amada Black CNM PCP: JHON SCOTT DO Status:REG CLI Y DOS: Location: WR564-6 Progress Notes Date of Service: 10/05/24 Progress Note: Patient presents for triage evaluation secondary to vaginal spotting at 27 weeks. Had one episode of small clot in toilet earlier today. no further bleeding. no ctx. +fm. FHT: Moderate variability reactive no decelerations category I tracing Reagan: none Contractions Assessment and plan: spec exam was negative for blood, closed cervix. US pending. Reactive NST, reassuring maternal and status patient discharged to home to follow-up this week in the office.. See problem list details for additional plan information. Charges/Coding Multi Select Codes Visit Charges Office Visit/Consults: 56425 OV L3 Est 20min Urinary/Genital Urinary/Genital CPT Codes: 01687-62 non-stress test Interp Assessment & Plan (1) Vaginal bleeding during : COMMENT: cervix closed and no vaginal bleeding on spec exam. US pending. d/c home (2) Complete placenta previa nos or without hemorrhage, second trimester: COMMENT: repeat US at 28 weeks Pelvic rest (3) Marijuana smoker in remission: COMMENT: last used 03/25/24, education provided, informed of initial tox screen & random testingduring (4) History of nicotine vaping: COMMENT: Quit 01/11/24 (5) Supervision of high-risk : QUALIFIERS: Trimester: second trimester Qualified Code(s): O09.92- Supervision of high risk , unspecified, second trimester COMMENT: PRR, , RICHARD 12/31/24 Boy, ELENA Shah, [place] (6) : QUALIFIERS: Weeks of gestation: 19 weeks Qualified Code(s): Z3A.19 - 19 weeks gestation of COMMENT: discussed NIPT & Carrier testing- Undecided NIPT-Low Risk. Rpt US 08/19 to complete anatomy. (7) Premature ventricular contractions: COMMENT: started with COVID in last (8) Obesity affecting : QUALIFIERS: Trimester: second trimester Obesity type affecting : unspecified obesity Qualified Code(s): O99.212 - Obesity complicating , second trimester COMMENT: HgbA1c NSTs at 37 weeks (9) Hiatal hernia: COMMENT: dx 03/2024, small hernia (10) Previous section: COMMENT: plans repeat C/S. RLTCS BS 12/24/24 SM. 10/05/24 1718 s CNM> Date _ [facility] Signature (if applicable): Date CC: CNM Amada Black; JHON SCOTT DO ~ Signed [facility]07-03-2025 Progress [facility] [address], [address] [place] [address] OFFICE VISIT Date of Service: 09/11/24 MR#: [id number] Acct: [id number] Name: RADHA BOONE Rep #: [id number] : 2000 Provider: Dr. Ruel Mercado MD Age/Sex: 23/F Location: [facility] [place] Status: Signed Intake Vital Signs 07/16/24 10:23 [...] allergies Depression Anxiety Surgical History Previous section Kohler teeth extracted Family History Mother Thyroid disorder, Onset Age: 38 Hypothyroid Diabetes GDM with both pregnancies Grandmother Thyroid disorder, Onset Age: 55 Maternal-thyroid nodules benign Diabetes Maternal type 2 Grandmother Diabetes Paternal type 2 Social History adopted: No household members: spouse and children housing: house number of children: 1 current occupational status: unemployed current occupation: [employer] pets and animals: Yes (Avoid litterbox) pets [...] physical activity do you participate in: none janet/advent: [employer] seatbelt use: always do you feel safe at home: Yes 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 Date Name GA/Weeks Outcome Route Bth Weight Infant Gen Labor Lgth Anesthesia Del Locatn Provider FOB 08/06/20 [place] 39 live - full term 8#1oz Female spinal [facility] Dr. Enedina Balbuena Delivery Date: 08/06/20 Last [...] current plan of care details and appropriate ordersplaced. Relevant counseling for the gestational age provided. [...] oz) 118/72 Negative -?-?-?-?-?-?-?-?-?-?-?-?- Negative 144 -?-?-?-?-?-?-?-?-?-?-?-?- MH-No VB. Nausea resolved. Feeling flutters. 07/21/24 -?-?-?-?-?-?-?-?-?-?-?-?- 16w 5d 254 lb 8 oz (+4 lb 8 oz) 118/80 Negative -?-?-?-?-?-?-?-?-?-?-?-?- Negative 165 -?-?-?-?-?-?-?-?-?-?-?-?- KW- work in for FHT. having increased anxiety about wellbeing. fht and movement on US today. 08/11/24 -?-?-?-?-?-?-?-?-?-?-?-?- 19w 5d 262 lb 4 oz (+12 lb 4 oz) 112/75 Negative -?-?-?-?-?-?-?-?-?-?-?-?- Negative 163 -?-?-?-?-?-?-?-?-?-?-?-?- MH-No VB. Gustavo Browne on US. Reviewed US, rpt sched 08/19 [...] Immediate Larc, Signs and Symptoms of Preeclampsia, Feeding No , Education and Family Medical [...] Urinalysis 2 Dip (Clinic) Today 09/11/24 1116 andrey SOOD> Date _ Ana Laura Doe Signature: Date (if applicable) CC: ~ [facility]05-12-2025 Evaluation note* Diagnosis Onset Date Resolution Status Admit Date Hiatal hernia acute July 21, 2 025 3:17pm History of nicotine vaping acute July 21, 2024 3:17pm Marijuana smoker in remission acute July 21, 2024 3:17pm Obesity affecting acute July 21, 2024 3:17pm acute July 21, 2024 3:17pm Premature ventricular contractions acute July 21, 2024 3 :17pm Previous section acute July 21, 2024 3:17pm Supervision of high-risk acute July 21, 2024 3 :17pm History of nicotine vaping acute August 11, 2024 9:55am Marijuana smoker in remission acute August 11, 2024 9:55am Obesity affecting acute August 11, 2024 9:55am acute August 11, 2024 9:55am Premature ventricular contractions acute August 11, 2024 9 :55am Previous section acute August 11, 2024 9:55am Supervision of high-risk acute August 11, 2024 9 :55am Complete placenta previa nos or without hemorrhage, second trimester resolved August 11, 2024 9 :55am Hiatal hernia acute September 11, 2 025 10:39am History of nicotine vaping acute September 11, 2024 10:39am Marijuana smoker in remission acute September 11, 2024 10:39am Obesity affecting acute September 11, 2024 10:39am acute September 11, 2024 10:39am Premature ventricular contractions acute September 11, 2024 1 0:39am Previous section acute September 11, 2024 10:39am Supervision of high-risk acute September 11, 2024 1 0:39am Complete placenta previa nos or without hemorrhage, second trimester resolved September 11, 2024 1 0:39am Hiatal hernia acute October 05, 2024 2:15pm History of nicotine vaping acute October 05, 2024 2:15pm Marijuana smoker in remission acute October 05, 2024 2:15pm Obesity affecting acute October 05, 2024 2:15pm acute October 05 2:15pm Premature ventricular contractions acute October 05, 2024 2:15pm Previous section acute October 05, 2024 2:15pm Supervision of high-risk acute October 05, 2024 2:15pm Complete placenta previa nos or without hemorrhage, second trimester resolved October 05, 2024 2:15pm Vaginal bleeding during resolved October 05, 2024 2:15pm Hiatal hernia acute October 10, 2024 9:52am History of nicotine vaping acute October 10, 2024 9:52am Marijuana smoker in remission acute October 10, 2024 9:52am Obesity affecting acute October 10, 2024 9:52am acute October 10 9:52am Premature ventricular contractions acute October 10, 2024 9:52am Previous section acute October 10, 2024 9:52am Supervision of high-risk acute October 10, 2024 9:52am Complete placenta previa nos or without hemorrhage, second trimester resolved October 10, 2024 9:52am Vaginal bleeding during resolved October 10, 2024 9:52am Abnormal glucose affecting acute October 21 9:20am Hiatal hernia acute October 9:20am History of nicotine vaping acute October 21, 2024 9:20am Marijuana smoker in remission acute October 21, 2024 9:20am Obesity affecting acute October 21, 2024 9:20am acute October 21 025 9:20am Premature ventricular contractions acute October 21 9:20am Previous section acute October 21, 2024 9:20am Supervision of high-risk acute October 21 9:20am Vaginal bleeding during resolved October 21 9:20am Abnormal glucose affecting acute November 07 10:53am Hiatal hernia acute October 10:53am History of nicotine vaping acute November 07, 2024 10:53am Marijuana smoker in remission acute November 07, 2024 10:53am Obesity affecting acute November 07, 2024 10:53am acute November 07, 2 025 10:53am Premature ventricular contractions acute November 07 10:53am Previous section acute November 07, 2024 10:53am Supervision of high-risk acute November 07 10:53am Abnormal glucose affecting acute November 18, 025 1:48pm Hiatal hernia acute November 182024 1:48pm History of nicotine vaping acute November 18, 2024 1:48pm Marijuana smoker in remission acute November 18, 2024 1:48pm Obesity affecting acute November 18, 2024 1:48pm acute November 18, 2024 1:48pm Premature ventricular contractions acute November 18, 2 025 1:48pm Previous section acute November 18, 2024 1:48pm Supervision of high-risk acute November 18, 2 025 1:48pm [facility] Work Phone: 1(733) 716-754005-07-2025 Evaluation note* Diagnosis Onset Date Resolution Status Admit Date Hiatal hernia acute July 16 10:21am History [...] 2024 10 :21am Hiatal hernia acute July 21 025 3:17pm History of nicotine vaping acute July 21, 2024 3:17pm Marijuana smoker in remission acute July 21, 2024 3:17pm Obesity affecting acute July 21, 2024 3:17pm acute July 21, 2024 3:17pm Premature ventricular contractions acute July 21, 2024 3 :17pm Previous section acute July 21, 2024 3:17pm Supervision of high-risk acute July 21, 2024 3 :17pm History of nicotine vaping acute August 11, 2024 9:55am Marijuana smoker in remission acute August 11, 2024 9:55am Obesity affecting acute August 11, 2024 9:55am acute August 11, 2024 9:55am Premature ventricular contractions acute August 11, 2024 9 :55am Previous section acute August 11, 2024 9:55am Supervision of high-risk acute August 11, 2024 9 :55am Complete placenta previa nos or without hemorrhage, second trimester resolved August 11, 2024 9 :55am Hiatal hernia acute September 11, 2 025 10:39am History of nicotine vaping acute September 11, 2024 10:39am Marijuana smoker in remission acute September 11, 2024 10:39am Obesity affecting acute September 11, 2024 10:39am acute September 11, 2024 10:39am Premature ventricular contractions acute September 11, 2024 1 0:39am Previous section acute September 11, 2024 10:39am Supervision of high-risk acute September 11, 2024 1 0:39am Complete placenta previa nos or without hemorrhage, second trimester resolved September 11, 2024 1 0:39am Hiatal hernia acute October 05, 2024 2:15pm History of nicotine vaping acute October 05, 2024 2:15pm Marijuana smoker in remission acute October 05, 2024 2:15pm Obesity affecting acute October 05, 2024 2:15pm acute October 05 2:15pm Premature ventricular contractions acute October 05, 2024 2:15pm Previous section acute October 05, 2024 2:15pm Supervision of high-risk acute October 05, 2024 2:15pm Complete placenta previa nos or without hemorrhage, second trimester resolved October 05, 2024 2:15pm Vaginal bleeding during resolved October 05, 2024 2:15pm Hiatal hernia acute October 10, 2024 9:52am History of nicotine vaping acute October 10, 2024 9:52am Marijuana smoker in remission acute October 10, 2024 9:52am Obesity affecting acute October 10, 2024 9:52am acute October 10 9:52am Premature ventricular contractions acute October 10, 2024 9:52am Previous section acute October 10, 2024 9:52am Supervision of high-risk acute October 10, 2024 9:52am Complete placenta previa nos or without hemorrhage, second trimester resolved October 10, 2024 9:52am Vaginal bleeding during resolved October 10, 2024 9:52am Abnormal glucose affecting acute October 21 9:20am Hiatal hernia acute October 9:20am History of nicotine vaping acute October 21, 2024 9:20am Marijuana smoker in remission acute October 21, 2024 9:20am Obesity affecting acute October 21, 2024 9:20am acute October 21, 025 9:20am Premature ventricular contractions acute October 21 9:20am Previous section acute October 21, 2024 9:20am Supervision of high-risk acute October 21 9:20am Vaginal bleeding during resolved October 21 9:20am Abnormal glucose affecting acute November 07 10:53am Hiatal hernia acute October 10:53am History of nicotine vaping acute November 07, 2024 10:53am Marijuana smoker in remission acute November 07, 2024 10:53am Obesity affecting acute November 07, 2024 10:53am acute November 07, 2 025 10:53am Premature ventricular contractions acute November 07 10:53am Previous section acute November 07, 2024 10:53am Supervision of high-risk acute November 07 10:53am [facility] Work Phone: 1(657) 496-557104-21-2025 Evaluation note* Diagnosis Onset Date Resolution Status Admit Date Hiatal hernia acute June 30, 2024 11:20am [...] high-risk acute July 21, 2024 3 :17pm History of nicotine vaping acute August 11, 2024 9:55am Marijuana smoker in remission acute August 11, 2024 9:55am Obesity affecting acute August 11, 2024 9:55am acute August 11, 2024 9:55am Premature ventricular contractions acute August 11, 2024 9 :55am Previous section acute August 11, 2024 9:55am Supervision of high-risk acute August 11, 2024 9 :55am Complete placenta previa nos or without hemorrhage, second trimester resolved August 11, 2024 9 :55am Hiatal hernia acute September 11 10:39am History of nicotine vaping acute September 11, 2024 10:39am Marijuana smoker in remission acute September 11, 2024 10:39am Obesity affecting acute September 11, 2024 10:39am acute September 11, 2024 10:39am Premature ventricular contractions acute September 11, 2024 1 0:39am Previous section acute September 11, 2024 10:39am Supervision of high-risk acute September 11, 2024 1 0:39am Complete placenta previa nos or without hemorrhage, second trimester resolved September 11, 2024 1 0:39am Hiatal hernia acute October 05, 2024 2:15pm History of nicotine vaping acute October 05, 2024 2:15pm Marijuana smoker in remission acute October 05, 2024 2:15pm Obesity affecting acute October 05, 2024 2:15pm acute October 05 2:15pm Premature ventricular contractions acute October 05, 2024 2:15pm Previous section acute October 05, 2024 2:15pm Supervision of high-risk acute October 05, 2024 2:15pm Complete placenta previa nos or without hemorrhage, second trimester resolved October 05, 2024 2:15pm Vaginal bleeding during resolved October 05, 2024 2:15pm Hiatal hernia acute October 10, 2024 9:52am History of nicotine vaping acute October 10, 2024 9:52am Marijuana smoker in remission acute October 10, 2024 9:52am Obesity affecting acute October 10, 2024 9:52am acute October 10 9:52am Premature ventricular contractions acute October 10, 2024 9:52am Previous section acute October 10, 2024 9:52am Supervision of high-risk acute October 10, 2024 9:52am Complete placenta previa nos or without hemorrhage, second trimester resolved October 10, 2024 9:52am Vaginal bleeding during resolved October 10, 2024 9:52am Abnormal glucose affecting acute October 21 9:20am Hiatal hernia acute October 9:20am History of nicotine vaping acute October 21, 2024 9:20am Marijuana smoker in remission acute October 21, 2024 9:20am Obesity affecting acute October 21, 2024 9:20am acute October 21, 2 025 9:20am Premature ventricular contractions acute October 21 9:20am Previous section acute October 21, 2024 9:20am Supervision of high-risk acute October 21 9:20am Vaginal bleeding during resolved October 21 9:20am [facility] Work Phone: 1(895) 391-114104-10-2025 Evaluation note* Diagnosis Onset Date Resolution Status Admit Date Hiatal hernia acute June 19, 2024 2:55pm [...] high-risk acute August 11, 2024 9 :55am Complete placenta previa nos or without hemorrhage, second trimester acute September 11, 2024 1 0:39am Hiatal hernia acute September 11, 2 025 10:39am History of nicotine vaping acute September 11, 2024 10:39am Marijuana smoker in remission acute September 11, 2024 10:39am Obesity affecting acute September 11, 2024 10:39am acute September 11, 2024 10:39am Premature ventricular contractions acute September 11, 2024 1 0:39am Previous section acute September 11, 2024 10:39am Supervision of high-risk acute September 11, 2024 1 0:39am Complete placenta previa nos or without hemorrhage, second trimester acute October 05, 2024 2:15pm Hiatal hernia acute October 05, 2024 2:15pm History of nicotine vaping acute October 05, 2024 2:15pm Marijuana smoker in remission acute October 05, 2024 2:15pm Obesity affecting acute October 05, 2024 2:15pm acute October 05 2:15pm Premature ventricular contractions acute October 05, 2024 2:15pm Previous section acute October 05, 2024 2:15pm Supervision of high-risk acute October 05, 2024 2:15pm Vaginal bleeding during acute October 05, 2024 2:15pm Complete placenta previa nos or without hemorrhage, second trimester acute October 10, 2024 9:52am Hiatal hernia acute October 10, 2024 9:52am History of nicotine vaping acute October 10, 2024 9:52am Marijuana smoker in remission acute October 10, 2024 9:52am Obesity affecting acute October 10, 2024 9:52am acute October 10 9:52am Premature ventricular contractions acute October 10, 2024 9:52am Previous section acute October 10, 2024 9:52am Supervision of high-risk acute October 10, 2024 9:52am Vaginal bleeding during acute October 10, 2024 9:52am [facility] Work Phone: 1(177) 228-552304-04-2025 Discharge summary [facility] Medical Records Department [address] [place] [id number] Emergency Department Summary 06/13/24 MR#: [id number] Acct: [id number] Name: RADHA BOONE Rep #:[id number] : 2000 23 From: Rubens Escudero MD [...] states for the most part it has beenbrief, where she will suddenly feel a sharp pain in her right lower quadrant and then it will go away less than a minute. This is been occurring multiple times during the day. She been nauseated throughout her , no vomiting, that has not changed recently. No changes in her appetite in last4 to 5 days, she states she takes [...] , no changes in that no dysuria orhematuria. 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 Appendicitis certainly is in the [...] % (Auto) 66.2 Lymph % (Auto) 25.9 Hardin % (Auto) 5.4 Eos % (Auto) 2.0 [...] Sl. Cloudy Urine pH 6.0 Ur Specific [place] 1.020 Urine Protein Negative Urine Glucose (UA) [...] The study appears within limits. Reading Location: [facility] Obstetrics Ultrasound 06/13/24 18:00 IMPRESSION: Single live intrauterine as above. Reading Location: [facility] Discharge Plan Triage Chief Complaint: Abd [...] (2,000 unit) capsule 50 mcg PO QDAY 844-emaf-xlgfl ac-dha 1 EACH combo pack 1 ea PO DAILY Primary Care Provider: JHON SCOTT Referrals: Ana Laura Mercado MD [Med Staff - Active Staff] - 3-5 Days if not improving Print Language: Filipino Disposition Disposition: Home, Self Care What to do if you have Problems For any increased pain, shortness of breath, bleeding, nausea or vomiting, chestpain, or any unexpected problems, contact your Primary Care Provider. Call [facility] ([phone]) or report tothe closest Emergency Room. Call 911 if necessary. 06/13/242057 Cosigner Signature (if applicable): CC: Dr. Ana Laura Mercado MD; JHON SCOTT DO ~ Signed [facility]04-04-2025 Radiology Diagnostic study note [facility] Imaging Services [address] [place], [place] [address] Transvaginal w/Preg US MR#: [id number] Acct: [id number] Name: RADHA BOONE Rep #: [id number] : 2000 F 23 From: Cristian Spear MD PCP: JHON SCOTT DO Status: REG ER Study:Transvaginal w/Preg US Date of Exam: 06/13/24 Exam# [id number] Ordering Dr: Sonal Escudero MD PROCEDURE: TRANSVAGINAL [...] Single live intrauterine as above. Reading Location: [id number] CC: Dr. Rubens Escudero MD; JHON SCOTT DO ~ Customer Success Associate: Signed [facility]04-04-2025 Radiology Diagnostic study note [facility] Imaging Services [address] [place], [place] [id number] Kidney and Bladder MR#: [id number] Acct: [id number] Name: RADHA BOONEZABETH Rep #: [id number] : 2000 F 23 From: Cristian Spear MD PCP: JHON SCOTT DO Status: REG ER Study:Kidney and Bladder Date of Exam: 0 06/13/24 Exam# [id number] Ordering Dr: Sonal Escudero MD PROCEDURE: KIDNEY [...] The study appears within limits. Reading Location: [id number] CC: Dr. Rubens Escudero MD; JHON SCOTT DO ~ Customer Success Associate: Signed [facility]04-04-2025 Evaluation note* Diagnosis Onset Date Resolution Status Admit Date Hiatal hernia acute June 13, 2024 3:47pm [...] high-risk acute August 11, 2024 9 :55am Complete placenta previa nos or without hemorrhage, second trimester acute September 11, 2024 1 0:39am Hiatal hernia acute September 11, 2 025 10:39am History of nicotine vaping acute September 11, 2024 10:39am Marijuana smoker in remission acute September 11, 2024 10:39am Obesity affecting acute September 11, 2024 10:39am acute September 11, 2024 10:39am Premature ventricular contractions acute September 11, 2024 1 0:39am Previous section acute September 11, 2024 10:39am Supervision of high-risk acute September 11, 2024 1 0:39am Complete placenta previa nos or without hemorrhage, second trimester acute October 05, 2024 2:15pm Hiatal hernia acute October 05, 2024 2:15pm History of nicotine vaping acute October 05, 2024 2:15pm Marijuana smoker in remission acute October 05, 2024 2:15pm Obesity affecting acute October 05, 2024 2:15pm acute October 05 2:15pm Premature ventricular contractions acute October 05, 2024 2:15pm Previous section acute October 05, 2024 2:15pm Supervision of high-risk acute October 05, 2024 2:15pm Vaginal bleeding during acute October 05, 2024 2:15pm [facility] Work Phone: [phone]) 259-203704-04-2025 Evaluation note* Diagnosis Onset Date Resolution Status Admit Date Hiatal hernia acute June 13, 2024 3:47pm [...] high-risk acute August 11, 2024 9 :55am Complete placenta previa nos or without hemorrhage, second trimester acute September 11, 2024 1 0:39am Hiatal hernia acute September 11, 2 025 10:39am History of nicotine vaping acute September 11, 2024 10:39am Marijuana smoker in remission acute September 11, 2024 10:39am Obesity affecting acute September 11, 2024 10:39am acute September 11, 2024 10:39am Premature ventricular contractions acute September 11, 2024 1 0:39am Previous section acute September 11, 2024 10:39am Supervision of high-risk acute September 11, 2024 1 0:39am Complete placenta previa nos or without hemorrhage, second trimester acute October 05, 2024 2:15pm Hiatal hernia acute October 05, 2024 2:15pm History of nicotine vaping acute October 05, 2024 2:15pm Marijuana smoker in remission acute October 05, 2024 2:15pm Obesity affecting acute October 05, 2024 2:15pm acute October 05 2:15pm Premature ventricular contractions acute October 05, 2024 2:15pm Previous section acute October 05, 2024 2:15pm Supervision of high-risk acute October 05, 2024 2:15pm Vaginal bleeding during acute October 05, 2024 2:15pm Complete placenta previa nos or without hemorrhage, second trimester acute October 10, 2024 9:52am Hiatal hernia acute October 10, 2024 9:52am History of nicotine vaping acute October 10, 2024 9:52am Marijuana smoker in remission acute October 10, 2024 9:52am Obesity affecting acute October 10, 2024 9:52am acute October 10 9:52am Premature ventricular contractions acute October 10, 2024 9:52am Previous section acute October 10, 2024 9:52am Supervision of high-risk acute October 10, 2024 9:52am Vaginal bleeding during acute October 10, 2024 9:52am [facility] Work Phone: [phone] 560-481904-04-2025 Discharge summary Author Rubens Escudero [facility] Note Date/Time June 13, 2024 8:58 pm [facility] Medical Records Department [address] [place] [address] Emergency Department Summary 06/13/24 MR#: [id number] Acct: [id number] Name: RADHA BOONE Rep #:[id number] : 2000 23 From: Rubens Escudero MD PCP: JHON SCOTT, Status:REG ER Location: ED HPI HPI - [...] changes in that no dysuria or hematuria. 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 Cloudy Urine pH 6.0 Ur Specific [place] 1.020 Urine Protein Negative Urine Glucose (UA) [...] The study appears within limits. Reading Location: [facility] Obstetrics Ultrasound 06/13/24 18:00 IMPRESSION: Single live intrauterine as above. Reading Location: [facility] Discharge Plan Triage Chief Complaint: Abd [...] (2,000 unit) capsule 50 mcg PO QDAY [id number] ac-dha 1 EACH combo pack 1 ea PO DAILY Primary Care Provider: JHON SCOTT Referrals: Ana Laura Mercado MD [Med Staff - Active Staff] - 3-5 Days if not improving Print Language: Filipino Disposition Disposition: Home, Self Care What to do if you have Problems For any increased pain, shortness of breath, bleeding, nausea or vomiting, chestpain, or any unexpected problems, contact your Primary Care Provider. Call [facility] ([phone]) or report to the closest Emergency Room. Call 911 if necessary. 06/13/242057 <Electronically signed by Rubens Escudero MD> Cosigner Signature (if applicable): CC: Dr. Ana Laura Mercado MD; JHON SCOTT DO ~ Signed [facility] Work Phone: 1([phone]) 180-291003-14-2025 Evaluation note* Diagnosis Onset Date Resolution Status [...] affecting early inactive May 23, 2024 10:46am [facility] Work Phone: [phone] Evaluation note* Diagnosis Onset Date Resolution Status [...] of high-risk acute June 13, 2024 3:47pm [facility] Work Phone: [phone]) 411-997303-14-2025 Evaluation note* Diagnosis Onset Date Resolution Status [...] , antepartum inactive June 19, 2024 2:55pm [facility] Work Phone: [phone]) 494-158203-14-2025 Evaluation note* Diagnosis Onset Date Resolution Status [...] 2024 9 :55am Hiatal hernia acute August 11, 9:55am History of nicotine vaping acute August 11, 2024 9:55am Marijuana smoker in remission acute August 11, 2024 9:55am Obesity affecting acute August 11, 2024 9:55am acute August 11, 2024 9:55am Premature ventricular contractions acute August 11, 2024 9 :55am Previous section acute August 11, 2024 9:55am Supervision of high-risk acute August 11, 2024 9 :55am [facility] Work Phone: [phone] Evaluation note* Diagnosis Onset Date Resolution Status [...] high-risk acute August 11, 2024 9 :55am [facility] Work Phone: [phone] Discharge summary [facility] Medical Records Department [address] [place] [address] Emergency Department Summary 05/20/24 MR#: [id number] Acct: [id number] Name: RADHA BOONE Rep #:[id number] : 2000 23 From: Brody Cleaning DO [...] she does have appointment on Sunday with [facility] however states that she feels [...] Patient denies any abdominal pain or cramping. 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 I called on-call NUMERICAL CONTROL ROUTER OPERATOR for [facility]. Freedman who states that the patient [...] (Auto) Neut % (Auto) Lymph % (Auto) Hardin % (Auto) Eos % (Auto) Baso % [...] Clear Cancelled Urine pH 7.0 Ur Specific [place] U Specif Grav (Refrac) Urine Protein Urine [...] (Auto) Neut % (Auto) Lymph % (Auto) Hardin % (Auto) Eos % (Auto) Baso % [...] Urine Clarity Urine pH Cancelled Ur Specific [place] 1.005 Cancelled U Specif Grav (Refrac) Cancelled [...] (Auto) Neut % (Auto) Lymph % (Auto) Hardin % (Auto) Eos % (Auto) Baso % (Auto) Absolute Neuts (auto) Absolute Lymphs (auto) Nucleated RBC % Sodium Potassium Chloride Carbon Dioxide Anion Gap BUN Creatinine Estim Creat Clear Calc Est GFR (MDRD) Non-Af BUN/Creatinine Ratio Glucose Calcium Total Bilirubin AST ALT Alkaline Phosphatase Total Protein Albumin Globulin Albumin/Globulin Ratio HCG, Quant Serum , Qual Urine Color Urine Clarity Urine pH Ur Specific [place] U Specif Grav (Refrac) Urine Protein Urine [...] (Auto) Neut % (Auto) Lymph % (Auto) Hardin % (Auto) Eos % (Auto) Baso % (Auto) Absolute Neuts (auto) Absolute Lymphs (auto) Nucleated RBC % Sodium Potassium Chloride Carbon Dioxide Anion Gap BUN Creatinine Estim Creat Clear Calc Est GFR (MDRD) Non-Af BUN/Creatinine Ratio Glucose Calcium Total Bilirubin AST ALT Alkaline Phosphatase Total Protein Albumin Globulin Albumin/Globulin Ratio HCG, Quant Serum , Qual Urine Color Urine Clarity Urine pH Ur Specific [place] U Specif Grav (Refrac) Urine Protein Urine [...] (Auto) Neut % (Auto) Lymph % (Auto) Hardin % (Auto) Eos % (Auto) Baso % (Auto) Absolute Neuts (auto) Absolute Lymphs (auto) Nucleated RBC % Sodium Potassium Chloride Carbon Dioxide Anion Gap BUN Creatinine Estim Creat Clear Calc Est GFR (MDRD) Non-Af BUN/Creatinine Ratio Glucose Calcium Total Bilirubin AST ALT Alkaline Phosphatase Total Protein Albumin Globulin Albumin/Globulin Ratio HCG, Quant Serum , Qual Urine Color Urine Clarity Urine pH Ur Specific [place] U Specif Grav (Refrac) Urine Protein Urine [...] (Auto) Neut % (Auto) Lymph % (Auto) Hardin % (Auto) Eos % (Auto) Baso % (Auto) Absolute Neuts (auto) Absolute Lymphs (auto) Nucleated RBC % Sodium Potassium Chloride Carbon Dioxide Anion Gap BUN Creatinine Estim Creat Clear Calc Est GFR (MDRD) Non-Af BUN/Creatinine Ratio Glucose Calcium Total Bilirubin AST ALT Alkaline Phosphatase Total Protein Albumin Globulin Albumin/Globulin Ratio HCG, Quant Serum , Qual Urine Color Urine Clarity Urine pH Ur Specific [place] U Specif Grav (Refrac) Urine Protein Urine [...] % (Auto) 57.9 Lymph % (Auto) 30.2 Hardin % (Auto) 9.4 Eos % (Auto) 1.8 [...] Globulin 3.0 Albumin/Globulin Ratio 1.3 HCG, Quant 08616 H Serum , Qual Cancelled Urine Color Urine Clarity Urine pH Ur Specific [place] U Specif Grav (Refrac) Urine Protein Urine [...] 5. Additional description as above. Reading Location: [id number] Discharge Plan Triage Chief Complaint: Vag Bld, Preg ED Provider: Brody Cleaning Dx/Rx/DC Orders Clinical Impression: Vaginal bleeding affecting early Prescriptions: No Action escitalopram oxalate [Lexapro] 20 mg tablet 20 mg PO QDAY omeprazole 20 mg capsule,delayed release(DR/EC) 20 mg PO QDAY cholecalciferol (vitamin D3) 50 mcg (2,000 unit) capsule 50 mcg PO QDAY [id number]-flbly ac-dha 1 EACH combo pack 1 ea PO DAILY Primary Care Provider: JHON SCOTT Referrals: JHON SCOTT DO [Primary Care Provider] - Activity Restrictions/Additional Instructions: Follow-up with your NUMERICAL CONTROL ROUTER OPERATOR in the outpatient setting on Sunday or scheduled appointment. Take your ultrasound results with you to that appointment. No lifting heavy things no exercising no intercourse you are placed on pelvic rest. Return if worsening symptoms or any concerns Print Language: Filipino Disposition Disposition: Home, Self Care What to do if you have Problems For any increased pain, shortness of breath, bleeding, nausea or vomiting, chestpain, or any unexpected problems, contact your Primary Care Provider. Call [facility] ([phone]) or report tothe closest Emergency Room. Call 911 if necessary. 05/20/24 1655 Cosigner Signature (if applicable): CC: JHON SCOTT DO ~ Signed [facility]03-11-2025 Radiology Diagnostic study note [facility] Services [address] [place], [place] [address] Transvaginal w/Preg US MR#: [id number] Acct: [id number] Name: RADHA BOONE Rep #: [id number] : 2000 F 23 From: Marycruz Webb MD PCP: JHON SCOTT DO Status: REG ER Study:Transvaginal w/Preg US Date of Exam: 05/20/24 Exam# [id number] Ordering Dr: Ashley Cleaning DO PROCEDURE: TRANSVAGINAL W/PREG US (USTVAGP), [...] 25% of the gestational sac surface area. [place]-rump length: 17 mm, corresponding to 8 weeks [...] 5. Additional description as above. Reading Location: [id number] CC: Dr. Brody Cleaning DO; JHON SCOTT DO ~ Customer Success Associate: Signed [facility]03-11-2025 Discharge summary Author Brody Cleaning [facility] Note Date/Time May 20, 2024 4:5 5pm [facility] Medical Records Department [address] [place] [address] Emergency Department Summary 05/20/24 MR#: [id number] Acct: [id number] Name: RADHA BOONE Rep #:[id number] : 2000 23 From: Brody Cleaning DO [...] she does have appointment on Sunday with [facility] however states that she feels [...] Patient denies any abdominal pain or cramping. 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 I called on-call NUMERICAL CONTROL ROUTER OPERATOR for [facility] Dr. Freedman who states that the patient [...] (Auto) Neut % (Auto) Lymph % (Auto) Hardin % (Auto) Eos % (Auto) Baso % [...] Clear Cancelled Urine pH 7.0 Ur Specific [place] U Specif Grav (Refrac) Urine Protein Urine [...] (Auto) Neut % (Auto) Lymph % (Auto) Hardin % (Auto) Eos % (Auto) Baso % [...] Urine Clarity Urine pH Cancelled Ur Specific [place] 1.005 Cancelled U Specif Grav (Refrac) Cancelled [...] (Auto) Neut % (Auto) Lymph % (Auto) Hardin % (Auto) Eos % (Auto) Baso % (Auto) Absolute Neuts (auto) Absolute Lymphs (auto) Nucleated RBC % Sodium Potassium Chloride Carbon Dioxide Anion Gap BUN Creatinine Estim Creat Clear Calc Est GFR (MDRD) Non-Af BUN/Creatinine Ratio Glucose Calcium Total Bilirubin AST ALT Alkaline Phosphatase Total Protein Albumin Globulin Albumin/Globulin Ratio HCG, Quant Serum , Qual Urine Color Urine Clarity Urine pH Ur Specific [place] U Specif Grav (Refrac) Urine Protein Urine [...] (Auto) Neut % (Auto) Lymph % (Auto) Hardin % (Auto) Eos % (Auto) Baso % (Auto) Absolute Neuts (auto) Absolute Lymphs (auto) Nucleated RBC % Sodium Potassium Chloride Carbon Dioxide Anion Gap BUN Creatinine Estim Creat Clear Calc Est GFR (MDRD) Non-Af BUN/Creatinine Ratio Glucose Calcium Total Bilirubin AST ALT Alkaline Phosphatase Total Protein Albumin Globulin Albumin/Globulin Ratio HCG, Quant Serum , Qual Urine Color Urine Clarity Urine pH Ur Specific [place] U Specif Grav (Refrac) Urine Protein Urine [...] (Auto) Neut % (Auto) Lymph % (Auto) Hardin % (Auto) Eos % (Auto) Baso % (Auto) Absolute Neuts (auto) Absolute Lymphs (auto) Nucleated RBC % Sodium Potassium Chloride Carbon Dioxide Anion Gap BUN Creatinine Estim Creat Clear Calc Est GFR (MDRD) Non-Af BUN/Creatinine Ratio Glucose Calcium Total Bilirubin AST ALT Alkaline Phosphatase Total Protein Albumin Globulin Albumin/Globulin Ratio HCG, Quant Serum , Qual Urine Color Urine Clarity Urine pH Ur Specific [place] U Specif Grav (Refrac) Urine Protein Urine [...] (Auto) Neut % (Auto) Lymph % (Auto) Hardin % (Auto) Eos % (Auto) Baso % (Auto) Absolute Neuts (auto) Absolute Lymphs (auto) Nucleated RBC % Sodium Potassium Chloride Carbon Dioxide Anion Gap BUN Creatinine Estim Creat Clear Calc Est GFR (MDRD) Non-Af BUN/Creatinine Ratio Glucose Calcium Total Bilirubin AST ALT Alkaline Phosphatase Total Protein Albumin Globulin Albumin/Globulin Ratio HCG, Quant Serum , Qual Urine Color Urine Clarity Urine pH Ur Specific [place] U Specif Grav (Refrac) Urine Protein Urine [...] % (Auto) 57.9 Lymph % (Auto) 30.2 Hardin % (Auto) 9.4 Eos % (Auto) 1.8 [...] Globulin 3.0 Albumin/Globulin Ratio 1.3 HCG, Quant 90922 H Serum , Qual Cancelled Urine Color Urine Clarity Urine pH Ur Specific [place] U Specif Grav (Refrac) Urine Protein Urine [...] 5. Additional description as above. Reading Location: [facility] Discharge Plan Triage Chief Complaint: Vag Bld, Preg ED Provider: Brody Cleaning Dx/Rx/DC Orders Clinical Impression: Vaginal bleeding affecting early Prescriptions: No Action escitalopram oxalate [Lexapro] 20 mg tablet 20 mg PO QDAY omeprazole 20 mg capsule,delayed release(DR/EC) 20 mg PO QDAY cholecalciferol (vitamin D3) 50 mcg (2,000 unit) capsule 50 mcg PO QDAY [id number]-atfgh ac-dha 1 EACH combo pack 1 ea PO DAILY Primary Care Provider: JHON SCOTT Referrals: JHON SCOTT DO [Primary Care Provider] - Activity Restrictions/Additional Instructions: Follow-up with your NUMERICAL CONTROL ROUTER OPERATOR in the outpatient setting on Sunday or scheduled appointment. Take your ultrasound results with you to that appointment. No lifting heavy things no exercising no intercourse you are placed on pelvic rest. Return if worsening symptoms or any concerns Print Language: Filipino Disposition Disposition: Home, Self Care What to do if you have Problems For any increased pain, shortness of breath, bleeding, nausea or vomiting, chestpain, or any unexpected problems, contact your Primary Care Provider. Call [facility] ([phone]) or report to the closest Emergency Room. Call 911 if necessary. 05/20/24 1655 <Electronically signed by Brody Cleaning DO> Beverlyigner Signature (if applicable): CC: JHON SCOTT DO ~ Signed [facility] Work Phone: [phone]) 561-723601-23-2025 NoteMarkail E Manuel 23 y.o. 2000 female Reason for Consult: [...] ventricular contractions) Tachycardia TBI (traumatic brain injury) ([facility]) Family History Problem Relation Age [...] MD AUTHENTICATED BY PAL BOOKER, ON 04/03/2024 15:15:57[facility] History of Present illness Narrative* Pal [...] ventricular contractions) Tachycardia TBI (traumatic brain injury) ([facility]) Family History Problem Relation Age [...] omeprazole. Pal Booker MD documented in this [id number] Evaluation + Plan note* Assessment & Plan Note - Jhon Scott DO - 01/27/2024 7:37 PM EST Associated Problem(s): Anxiety Recently exacerbated due to life stressors, but starting to improve. We reviewed options for medication/dose adjustment. Using shared decision making, we decided to continue today without change. Continue Lexapro 10mg every day and Buspar 5mg bid. Return precautions reviewed. [facility] Work Phone: [phone] Miscellaneous Notes* Assessment & Plan Note - [...] antifungal. Return precautions reviewed. documented in this encounterSt[facility] Work Phone: [phone] Evaluation + Plan note* Assessment & Plan Note - Jhon Scott DO - 01/27/2024 7:36 PM ESTAssociated Problem(s): Depression, major, single episode, mild (CMS-HCC) Continue Lexapro and Buspar. [facility] Work Phone: [phone] Evaluation + Plan note* Assessment & Plan Note - Jhon Scott DO - 01/27/2024 7:36 PM ESTAssociated Problem(s): Rash Consider contact dermatitis vs fungal etiology. We will trial topical steroid. Medication dosing and side effects reviewed. If no better in 2wk, will plan to try topical antifungal. Return precautions reviewed. [facility] Work Phone: [phone] History of Present illness Narrative* Jhon Scott [...] recheck, sooner if needed. documented in this [facility] Work Phone: [phone] 502-981507-10-2024 Evaluation + Plan note* Assessment & Plan Note - Jhno Scott DO - 09/19/2023 9:29 PM EDTAssociated [...] as needed until . Return precautions reviewed. [facility] Work Phone: [phone] Miscellaneous Notes* Assessment & Plan Note - [...] ready. Will continue Lexapro. documented in this [facility]Un[facility] Work Phone: [phone] Evaluation + Plan note* Assessment & Plan Note - Jhon Scott DO - 09/19/2023 9:26 PM EDTAssociated Problem(s): Vitamin D deficiency Will replace with 2000iu every day. Repeat level prior to next eval. [facility] Work Phone: [phone] Evaluation + Plan note* Assessment & Plan Note - Jhon Scott DO - 09/19/2023 9:26 PM EDTAssociated Problem(s): Iron deficiency We reviewed iron studies. Recommend oral supplementation. She prefers to purchase her own supplement otc as it has been easier on her stomach. Will repeat labs prior to next appt. [facility] Work Phone: [phone] Evaluation + Plan note* Assessment & Plan Note - Jhon Scott DO - 09/19/2023 9:25 PM EDTAssociated Problem(s): Depression, major, single episode, mild (CMS-HCC) Continue Lexapro. Planning to wean Wellbutrin. [facility] Work Phone: [phone] Evaluation + Plan note* Assessment & Plan Note - Jhon Scott DO - 09/19/2023 9:25 PM EDTAssociated Problem(s): Anxiety Well-controlled on current mediation regimen. We discussed Wellbutrin wean. She will let us know when she is ready. Will continue Lexapro. [facility] Work Phone: [phone] History of Present illness Narrative* Jhon Scott [...] recheck, sooner if needed. documented in this encounterUnSelect [facility] Work Phone: [phone] Evaluation + Plan note* Assessment & Plan Note - Jhon Scott DO - 06/20/2023 8:57 PM EDTAssociated Problem(s): Class 3 severe obesity due to excess calories with serious comorbidity and aleisha dy mass index (BMI) of 40.0 to 44.9 in adult (CMS/[facility]) Unable to tolerate Adipex. [facility] Work Phone: [phone] Miscellaneous Notes* Assessment & Plan Note - Jhon Scott DO - 06/20/2023 8:57 PM EDTAssociated Problem(s): Class 3 severe obesity due to excess calories with serious comorbidity and body mass index (BMI) of 40.0 to 44.9 in adult (CMS/[facility]) Unable to tolerate Adipex. * Assessment & Plan Note - Jhon Scott DO - 06/20/2023 8:56 PM EDT Associated Problem(s): Depression, major, single episode, mild (CMS/[facility]) Continue Lexapro/Wellbutrin. * Assessment & Plan Note [...] counseling. Return precautions reviewed. documented in this encounterSt. [facility] Work Phone: [phone] Evaluation + Plan note* Assessment & Plan Note - Jhon Scott DO - 06/20/2023 8:56 PM EDTAssociated Problem(s): Depression, major, single episode, mild (CMS/HCC) Continue Lexapro/Wellbutrin. [facility] Work Phone: [phone] Evaluation + Plan note* Assessment & Plan [...] she has restarted counseling. Return precautions reviewed. [facility] Work Phone: [phone] History of Present illness Narrative* Jhon Scott [...] Visit ICD-10-CM Depression, major, single episode, mild ([facility]) F32.0 Continue Lexapro/Wellbutrin. Relevant Medications buPROPion XL (Wellbutrin XL) 300 mg 24 hr tablet Other Relevant Orders Follow Up In Primary Care - Established Class 3 severe obesity due to excess calories with serious comorbidity and body mass index (BMI) of40.0 to 44.9 in adult (CMS/[facility]) E66.01, Z68.41 Unable to tolerate [...] Labs prior to appt. documented in this encounterSt. [facility] Work Phone: [phone] Evaluation + Plan note* Assessment & Plan Note - Jhon Scott DO - 05/20/2023 12:46 AM ESTAssociated Problem(s): Class 3 severe obesity due to excess calories with serious comorbidity and aleisha dy mass index (BMI) of 40.0 to 44.9 in adult ([facility]) Dietary modifications and recommendation for [...] prescribed this medication based on documented diagnosis. [facility] Work Phone: [phone]) [phone] Miscellaneous Notes* Assessment & Plan Note - Jhon Soctt DO - 05/20/2023 12:46 AM ESTAssociated Problem(s): Class 3 severe obesity due to excess calories with serious comorbidity and body mass index (BMI) of 40.0 to 44.9 in adult ([facility]) Dietary modifications and recommendation for [...] Depression, major, single episode, mild (CMS/HCC) Exacerbated. * Assessment & Plan Note - Jhon Scott DO - 05/20/2023 12:45 AM EST Associated Problem(s): Anxiety Exacerbated largely due to her struggle with her weight at this time. We will address. documented in this encounterSt. [facility] Work Phone: [phone] Evaluation + Plan note* Assessment & Plan Note - Jhon Scott DO - 05/20/2023 12:45 AM ESTAssociated Problem(s): Depression, major, single episode, mild (CMS/HCC) Exacerbated. [facility] Work Phone: [phone] Evaluation + Plan note* Assessment & Plan Note - Jhon Scott DO - 05/20/2023 12:45 AM ESTAssociated Problem(s): Anxiety Exacerbated largely due to her struggle with her weight at this time. We will address. [facility] Work Phone: [phone] 109-167303-05-2024 History of Present illness Narrative* Jhon Scott DO - 05/15/2023 2:00 PM EST Subjective Patient ID: Radha Jackson is a 22 y.o. female who presents for 6 month check HPI Anx/dep - exacerbated over the past 3wks, new car broke down, grandma unfortunately passed last weekend, business is stressful, she restarted [facility] in [place], first visit was today,tried Buspar but causes [...] Visit ICD-10-CM Depression, major, single episode, mild ([facility]) F32.0 Exacerbated. Relevant Orders Follow Up In Primary Care - Established Class 3 severe obesity due to excess calories with serious comorbidity and body mass index (BMI) of40.0 to 44.9 in adult (CMS/HCC) - Primary E66.01, Z68.41 Dietary modifications and [...] recheck, sooner if needed. documented in this [facility] Work Phone: [phone] Evaluation + Plan note* Assessment & Plan Note - Jhon Scott DO - 01/16/2023 12:24 PM ESTAssociated Problem(s): Anxiety Wellbutrin increase. [facility] Work Phone: [phone] Evaluation + Plan note* Assessment & Plan [...] recheck, sooner if needed. Return precautions reviewed. [facility] Work Phone: 1([phone]) [phone] Miscellaneous Notes* Assessment & Plan Note - [...] needed. Return precautions reviewed. documented in this [facility] Work Phone: 1([phone]) [phone] History of Present illness Narrative* Jhon Scott [...] Anxiety F41.9 Wellbutrin increase. documented in [facility] Work Phone: [phone] 710-466509-05-2023 Evaluation + Plan note* Assessment & Plan Note - Jhon Scott DO - 11/14/2022 9:56 PM EDTAssociated Problem(s): Depression, major, single episode, mild (CMS/HCC) No changes today. Doing well. [facility] Work Phone: [phone]) 620-575109-05-2023 Evaluation + Plan note* Assessment & Plan Note - Jhon Scott DO - 11/14/2022 9:56 PM EDTAssociated Problem(s): Anxiety Doing well on current regimen. Will continue. Follow up in 6mo for recheck, sooner if needed. [facility] Work Phone: [phone]) [phone] Miscellaneous Notes* Assessment & Plan Note - Jhon Scott DO - 11/14/2022 9:56 PM EDTAssociated Problem(s): Depression, major, single episode, mild (CMS/HCC) No changes today. Doing well. * Assessment & Plan Note - Jhon Scott DO - 11/14/2022 9:56 PM EDT Associated Problem(s): Anxiety Doing well on current regimen. Will continue. Follow up in 6mo for recheck, sooner if needed. [facility] Work Phone: [phone] History of Present illness Narrative* Jhon Scott [...] Primary Care - Established documented in [facility]St[facility] Work Phone: [phone]) [phone] Evaluation + Plan note* Assessment & Plan Note - Jhon Scott DO - 08/15/2022 9:37 PM EDTAssociated Problem(s): Anxiety Wellbutrin increase. [facility] Work Phone: [phone] Evaluation + Plan note* Assessment & Plan Note - Jhon Scott DO - 08/15/2022 9:37 PM EDTAssociated Problem(s): Depression, major, single episode, mild (CMS/HCC) Doing well with addition of Wellbutrin. Using shared decision making, we decided to increase dose to 300mg every day. Medication dosing and side effects reviewed. Follow up in 3mo for recheck, soonerif needed. [facility] Work Phone: [phone] Miscellaneous Notes* Assessment & Plan Note - [...] for recheck, soonerif needed. documented in this encounterUn[facility] Work Phone: [phone] History of Present illness Narrative* Jhon Scott [...] Up In Primary Care documented in [facility]St[facility]: [phone]) [phone] Evaluation + Plan note* Assessment & Plan Note - Jhon Scott DO - 07/18/2022 9:25 PM EDTAssociated Problem(s): Anxiety Wellbutrin trial. [facility] Work Phone: [phone] Evaluation + Plan note* Assessment & Plan Note - Jhon Scott DO - 07/18/2022 9:25 PM EDTAssociated Problem(s): Depression, major, single episode, mild (CMS/HCC) Anxiety well-controlled with Lexapro. Will continue. Struggling with depressive symptoms. Reviewed options. Using shared decision making, we decided to trial adding Wellbutrin. Medication dosing and side effects reviewed. Follow up in 1mo for recheck, sooner if needed. [facility] Work Phone: [phone] Miscellaneous Notes* Assessment & Plan Note - [...] recheck, sooner if needed. documented in this [facility] Work Phone: [phone]) [phone] History of Present illness Narrative* Jhon Scott [...] Up In Primary Care documented in [facility]St[facility] Work Phone: [phone] Evaluation + Plan note* Assessment & Plan Note - Jhon Scott DO - 06/02/2022 2:42 PM EDTAssociated Problem(s): Iron deficiency Improved with otc supplement. Will continue to monitor. [facility] Work Phone: [phone] Evaluation + Plan note* Assessment & Plan Note - Jhon Scott DO - 06/02/2022 2:42 PM EDTAssociated Problem(s): Vitamin D deficiency No better with 2000iu daily. Will proceed with high dose 50,000iu qwk x8wk. [facility] Work Phone: [phone] Miscellaneous Notes* Assessment & Plan Note - [...] mild (CMS/HCC) Lexapro trial documented in this [facility] Work Phone: [phone] Evaluation + Plan note* Assessment & Plan [...] recheck, sooner if needed. Return precautions reviewed. [facility] Work Phone: [phone]) [phone] Evaluation + Plan note* Assessment & Plan Note - Jhon Scott DO - 06/02/2022 2:41 PM EDTAssociated Problem(s): Depression, major, single episode, mild (CMS/HCC) Lexapro trial 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 Work Phone: [phone] History of Present illness Narrative* completely off vyvanse, didn't even leaf size picker 20, a little anxiety since but recognize and could workthrough them * zoloft wean going well, tonight starting 50, next week nothing * sleeping better without vyvanse * taking 1/2 hydroxyzine due to grogginess prn and helps [facility] 205 DO Work Phone: [phone] History of Present illness Narrative* Patient presents [...] seems to help (full tablet caused grogginess). [facility] 205 DO Work Phone: Evaluation note* Diagnosis Anxiety Anxiety state, unspecified Depression, major, single episode, mild (CMS/HCC) documented in this encounter [facility] Work Phone: Evaluation note* Diagnosis Anxiety Anxiety state, unspecified Depression, major, single episode, mild (CMS/HCC) documented in this encounter [facility] Work Phone: Evaluation note* Diagnosis Anxiety Anxiety state, unspecified Depression, major, single episode, mild (CMS/HCC) documented in this encounter [facility] Work Phone: Evaluation note* Diagnosis Depression, major, single episode, mild (CMS/HCC)- Primary Anxiety Anxiety state, unspecified documented in this encounter [facility] Work Phone: Evaluation note* Diagnosis Class 3 severe obesity due to excess calories with serious comorbidity and body mass index (BMI) of 40.0 to 44.9 in adult (CMS/HCC)- Primary Anxiety Anxiety state, unspecified Depression, major, single episode, mild (CMS/HCC) documented in this encounter [facility] Work Phone: Evaluation note* Diagnosis Routine general medical examination at a health care facility- Primary Anxiety Anxiety state, unspecified Depression, major, single episode, mild (CMS/HCC) Class 3 severe obesity due to excess calories with serious comorbidity and body mass index (BMI) of 40.0 to 44.9 in adult (CMS/HCC) documented in this encounter [facility] Work Phone: Evaluation note* Diagnosis Anxiety- Primary [...] episode, mild (CMS-HCC) documented in this encounter [facility] Work Phone: Evaluation note* Diagnosis Anxiety- Primary [...] Bilateral wrist pain documented in this encounter [facility] Work Phone: Evaluation note* Diagnosis Anxiety- Primary Anxiety state, unspecified Depression, major, single episode, mild (CMS/HCC) Vitamin D deficiency Iron deficiency Disorders of iron metabolism documented in this encounter [facility] Work Phone: Evaluation note* Diagnosis Anxiety- Primary [...] vomiting type- Primary documented in this encounter [facility] Work Phone: Evaluation note* Diagnosis Epigastric pain- Primary Abdominal pain, epigastric [facility]* Diagnosis Epigastric pain- Primary Abdominal pain, epigastric Nausea Nausea alone [facility] Diagnosis Epigastric pain- Primary Abdominal pain, epigastric Nausea Nausea alone Epigastric pain Abdominal pain, epigastric Nausea Nausea alone [facility]* Diagnosis Epigastric pain Abdominal pain, epigastric Epigastric pain Abdominal pain, epigastric Nausea Nausea alone [facility] noteNo assessment information availableWOhioHealth [facility] Work Phone: Hospital Discharge instructions* Attachments The following attachments cannot be sent through Care Everywhere. * Nausea and Vomiting, Adult ED (Filipino) [facility] in 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 Take your ultrasound results with you to that appointment. No lifting heavy things no exercising no intercourse you are placed on pelvic rest. Return if worsening symptoms or any concernsWOhioHealth [facility] Work Phone: Progress note Author Ana Laura Mercado [facility] Note Date/Time September 11, 2024 11:16 am [facility] [address], [address] [place] [address] OFFICE VISIT Date of Service: 09/11/24 MR#: [id number] Acct: [id number] Name: RADHA BOONE Rep #: [id number] : 2000 Provider: Dr. Ruel Mercado MD Age/Sex: 23/F Location: [facility] [place] Status: Signed Intake Vital Signs 07/16/24 10:23 [...] allergies Depression Anxiety Surgical History Previous section Kohler teeth extracted Family History Mother Thyroid disorder, Onset Age: 38 Hypothyroid Diabetes GDM with both pregnancies Grandmother Thyroid disorder, Onset Age: 55 Maternal-thyroid nodules benign Diabetes Maternal type 2 Grandmother Diabetes Paternal type 2 Social History adopted: No household members: spouse and children housing: house number of children: 1 current occupational status: unemployed current occupation: [employer] pets and animals: Yes (Avoid litterbox) pets [...] physical activity do you participate in: none janet/advent: [employer] seatbelt use: always do you feel safe at home: Yes 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 Date Name GA/Weeks Outcome Route Bth Weight Gen Labor Lgth Anesthesia Del Locatn Provider FOB 08/06/20 Alyssa 39 live - full term 8#1oz Female spinal [facility] Dr. Enedina Balbuena Delivery Date: 08/06/20 Last [...] oz) 118/72 Negative -?-?-?-?-?-?-?-?-?-?-?-?- Negative 144 -?-?-?-?-?-?-?-?-?-?-?-?- MH-No VB. Nausea resolved. Feeling flutters. 07/21/24 -?-?-?-?-?-?-?-?-?-?-?-?- 16w 5d 254 lb 8 oz (+4 lb 8 oz) 118/80 Negative -?-?-?-?-?-?-?-?-?-?-?-?- Negative 165 -?-?-?-?-?-?-?-?-?-?-?-?- KW- work in for FHT. having increased anxiety about wellbeing. fht and movement on US today. 08/11/24 -?-?-?-?-?-?-?-?-?-?-?-?- 19w 5d 262 lb 4 oz (+12 lb 4 oz) 112/75 Negative -?-?-?-?-?-?-?-?-?-?-?-?- Negative 163 -?-?-?-?-?-?-?-?-?-?-?-?- MH-No VB. Gustavo Mckinnonia on US. Reviewed US, rpt sched 08/19 [...] Plan Orders: Orders CBC W/Diff, Automated Today O - Supervision of high risk , unspecified, second trimester Glucose Challenge Gest 1H 50g Today O - Supervision of high risk , unspecified, second trimester, Z13.1 - Encounter for screening for diabetes mellitus HIV Today O - Supervision of high risk , unspecified, second trimester Syphilis Antibodies Today O - Supervision of high risk , unspecified, second trimester POC Urinalysis 2 Dip (Clinic) Today 09/11/24 1116 <Electronically signed by Ana Laura balderas MD> Date _ Ana Laura Mercado MD Cosigner Signature: Date (if applicable) CC: ~ [facility] Work Phone: Progress note Author Amada Black [facility] Note Date/Time October 05, 2024 5:18 pm [facility] Medical Records Department [address] [place] [address] OB Triage Progress Note 10/05/24 1715 MR#: [id number] Acct: [id number] Name: RADHA BOONE Rep #:[id number] : 2000 23 From: Amada Black CNM PCP: JHON SCOTT DO Status:REG CLI Y DOS: Location: [place] [address] Progress Notes Date of Service: 10/05/24 Progress Note: Patient presents for triage evaluation secondary to vaginal spotting at 27 weeks. Had one episode of small clot in toilet earlier today. no further bleeding. no ctx. +fm. FHT: Moderate variability reactive no decelerations category I tracing Reagan: none Contractions Assessment and plan: spec exam was negative for blood, closed cervix. US pending. Reactive NST, reassuring maternal and status patient discharged to home to follow-up this week in the office.. See problem list details for additional plan information. Charges/Coding Multi Select Codes Visit Charges Office Visit/Consults: 94114 OV L3 Est 20min Urinary/Genital Urinary/Genital CPT Codes: 38449-30 non-stress test Interp Assessment & Plan (1) Vaginal bleeding during : COMMENT: cervix closed and no vaginal bleeding on spec exam. US pending. d/c home (2) Complete placenta previa nos or without hemorrhage, second trimester: COMMENT: repeat US at 28 weeks Pelvic rest (3) Marijuana smoker in remission: COMMENT: last used 03/25/24, education provided, informed of initial tox screen & random testing during (4) History of nicotine vaping: COMMENT: Quit 01/11/24 (5) Supervision of high-risk : QUALIFIERS: Trimester: second trimester Qualified Code(s): O09.92- Supervision of high risk , unspecified, second trimester COMMENT: PRR, , RICHARD 12/31/24 Boy, ELENA Shah, Bridger (6) : QUALIFIERS: Weeks of gestation: 19 weeks Qualified Code(s): Z3A.19 - 19 weeks gestation of COMMENT: discussed NIPT & Carrier testing- Undecided NIPT-Low Risk. Rpt US 08/19 to complete anatomy. (7) Premature ventricular contractions: COMMENT: started with COVID in last (8) Obesity affecting : QUALIFIERS: Trimester: second trimester Obesity type affecting : unspecified obesity Qualified Code(s): O99.212 - Obesity complicating , second trimester COMMENT: HgbA1c NSTs at 37 weeks (9) Hiatal hernia: COMMENT: dx 03/2024, small hernia (10) Previous section: COMMENT: plans repeat C/S. RLTCS BS 12/24/24 SM. 10/05/24 2248 <Electronically signed by Amada luke CNM> Date _ Amada Black CNM Cosigner Signature (if applicable): Date CC: BUTCH Black; JHON SCOTT DO ~ Signed [facility] Work Phone: Progress note Author Elissa Quintanilla [facility] Note Date/Time October 10, 2024 11: 04am [facility] [address] [place] [address], [address] [place] [address] OFFICE VISIT Date of Service: 10/10/24 MR#: [id number] Acct: [id number] Name: RADHA BOONE Rep #: [id number] : 2000 Provider: Dr. Ursula Weldon DO Age/Sex: 23/F Location: [facility] [place] Status: Signed Intake Vital Signs 08/11/24 10:06 10/05/24 14:53 10/10/24 10:14 10/10/24 10:15 Height 5 ft 7 in 5 ft 7 in 5 ft 7 in 5 ft 7 in Weight: 280 lb 2 oz BMI 43.9 BP 107/69 Intake Visit Reasons: 28WK OB/GLUCOSE *CSECTION Practice Manager Required: No Is patient in pain?: No Allergies No Known Allergies Allergy (Verified 10/10/24 10:13) Medications ?Medication ?Instructions ?Recorded ?Confirmed ?Type vit no.105-iron 30 1 ea PO DAILY 12/28/1904/05 History mg-folic acid 1.4 mg-dha 300 mg oral pack escitalopram oxalate 20 mg tablet 20 mg PO QDAY #90 ta bs 08/12/24 10/10/24 Rx (Lexapro) Last Menstrual Period: 03/26/24 Zika: Zika virus screening: Negative : No PFSH PFSH Medical History Seasonal allergies Depression Anxiety Surgical History Previous section Kohler teeth extracted Family History Mother Thyroid disorder, Onset Age: 38 Hypothyroid Diabetes GDM with both pregnancies Grandmother Thyroid disorder, Onset Age: 55 Maternal-thyroid nodules benign Diabetes Maternal type 2 Grandmother Diabetes Paternal type 2 Social History adopted: No household members: spouse and children housing: house number of children: 1 current occupational status: unemployed current occupation: [employer] pets and animals: Yes (Avoid litterbox) pets [...] physical activity do you participate in: none janet/advent: [employer] seatbelt use: always do you feel safe at home: Yes 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 Date Name GA/Weeks Outcome Route Bth Weight [facility] Novaleigh 39 live - full term 8#1oz Female spinal [facility] Dr. Enedina Balbuena Delivery Date: 08/06/20 Last Updated by: Rona Huff meconium & decels, prolonged labor HPI 28WK OB/GLUCOSE *CSECTION Details: RADHA BOONE is a 23 year old who presents for routine OB visit. OB Visit RICHARD Calculator Estimated Delivery Date Method Current WG Current Estimate 12/31/24 LMP (Certain) 28w 2d Other Estimates 12/30/24 Ultrasound #1 28w 3d Expected Delivery Route/Plan plans repeat C/S [...] Dilation -?-?-?-?-?-?-?-?-?-?-?-?- Effaced St Visit Note 05/23/24 -?-?-?-?--?-?-?-?-?-?-?-?- 8w 2d 250 lb (+0 oz) 108/79 [...] 4 oz) 118/72 Negative -?-?-?-?-?-?-?-?-?-?-?-?- Negative 144 -?-?-?--?-?-?-?-?-?-?-?-?- -No VB. Nausea resolved. Feeling flutters. 07/21/24 -?-?-?-?-?-?-?-?-?-?-?-?- 16w 5d 254 lb 8 oz (+4 lb 8 oz) 118/80 Negative -?-?-?-?-?-?-?-?-?-?-?-?- Negative 165 -?-?-?-?-?-?-?-?-?-?-?-?- KW- work in for FHT. having increased anxiety about wellbeing. fht and movement on US today. 08/11/24 -?-?-?-?-?-?-?-?-?-?-?-?- 19w 5d 262 lb 4 oz (+12 lb 4 oz) 112/75 Negative -?-?-?-?-?-?-?-?-?-?-?-?- Negative 163 -?-?-?-?-?-?-?-?-?-?-?-?- MH-No VB. Good F M. Previa on US. Reviewed US, rpt sched 08/19 to complete anatomy. 09/11/24 -?-?-?-?-?-?-?-?-?-?-?-?- 24w 1d 269 lb (+19 lb) 112/77 Trace -?-?-?-?-?-?-?-?-?-?-?-?- Negative 150 24 -?-?-?-?-?-?-?-?-?-?-?-?- SM- no vb lof go od fm nor euglar ctx discussed previous trauma and reviewed. struggled with the epidural. 10/10/24 -?-?-?-?-?-?-?-?-?-?-?-?- 28w 2d 280 lb 2 oz (+30 lb 2 oz) 107/69 Negative -?-?-?-?-?-?-?-?-?-?-?-?- Negative 155 29 -?-?-?-?-?-?-?-?-?-?-?-?- JV- declined tda p today JV- declined tdap today. loo enrrique at images of ultrsound from sunday and placenta is no longer over the cervix. ok to cancel next scan. growth was also adequate. no lof, vaginal bleeding, or dec fm. ACOG First Trimester First Trimester: Discussed Second Trimester Second Trimester: Signs and Symptoms of Labor, Selecting a care provider, Reproductive Life Planning & Contreception, Care Planning, Depression/Anxiety and Intimate Partner Violence; Discussed Tobacco Cessation Third Trimester Third Trimester: Pain Management Plans, Labor support person(s), Immediate Larc, Signs and Symptoms of Preeclampsia, Infant Feeding No , [place] Education and Family Medical Leave or Disability Forms ROS Const Denies fever(s) GI Reports as per HPI and Denies abdominal pain Reports as per HPI, Denies abnormal vaginal bleeding, Denies dysuria and Denies vaginal discharge Exam Const General: healthy appearing, comfortable and no acute distress GI Inspection: normal to inspection Palpation: soft and nontender Results POC Urinalysis 2 Dip (Clinic) Office Urine Glucose Negative Last Edit by Tiki Arrieta on 10/10/24 10: 57 Office Urine Protein Negative Last Edit by Tiki Arrieta on 10/10/24 10: 57 Coding Level of Care Code OB Routine Diagnoses Vaginal bleeding during O46.90 Complete placenta previa nos or without hemorrhage, second trimester O44.02 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 US pending. d/c home (2) Complete placenta previa nos or without hemorrhage, second trimester: Status: Acute Comment: repeat US at 28 weeks Pelvic rest, resolved (3) Marijuana smoker in remission: Status: Acute Comment: last used 03/25/24, education provided, informed of initial tox screen & random testing during (4) History of nicotine vaping: Status: Acute Comment: Quit 01/11/24 (5) Supervision of high-risk : Status: Acute Qualifiers: Trimester: second trimester Qualified Code(s): O09.92 - Supervision of high risk , unspecified, second trimester Comment: PRR, , RICHARD 12/31/24 Boy, PC Alyssa, Bridger (6) : Status: Acute Qualifiers: Weeks of gestation: 28 weeks Qualified Code(s): Z3A.28 - 28 weeks gestation of Comment: discussed NIPT & Carrier testing- Undecided NIPT-Low Risk. Rpt US 08/19 to complete anatomy. (7) Premature ventricular contractions: Status: Acute Comment: started with COVID in last (8) Obesity affecting : Status: Acute Qualifiers: Obesity type affecting : unspecified obesity Trimester: second trimester Qualified Code(s): O99.212 - Obesity complicating , second trimester Comment: HgbA1c NSTs at 37 weeks (9) Hiatal hernia: Status: Acute Comment: dx 03/2024, small hernia (10) Previous section: Status: Acute Comment: plans repeat C/S. RLTCS BS 12/24/24 SM. Orders: Orders POC Urinalysis 2 Dip (Clinic) Today 10/10/24 1105 <Electronically signed by Elissa Elizalde DO> Date _ Elissa Weldon DO Cosigner Signature: Date (if applicable) CC: ~ [facility] Work Phone: Progress note Author Ana Laura Mercado [facility] Note Date/Time October 21, 2024 10 :10am [facility] [address], [address] [place] [address] OFFICE VISIT Date of Service: 10/21/24 MR#: [id number] Acct: [id number] Name: RADHA BOONE Rep #: [id number] : 2000 Provider: Dr. Ruel Mercado MD Age/Sex: 23/F Location: [facility] [place] Status: Signed Intake Vital Signs 08/11/24 10:06 10/10/24 10:15 10/21/24 09:23 Height 5 ft 7 in 5 ft 7 in 5 ft 7 in Weight: 282 lb 4 oz BMI 44.1 BP 117/81 H Intake Visit Reasons: 30 WK OB *CSECTION Practice Manager Required: No Is patient in pain?: No Allergies No Known Allergies Allergy (Verified 10/21/24 09:24) Medications ?Medication ?Instructions ?Recorded ?Confirmed ?Type vit no.105-iron 30 1 ea PO DAILY 12/28/1903/05 History mg-folic acid 1.4 mg-dha 300 mg oral pack escitalopram oxalate 20 mg tablet 20 mg PO QDAY #90 ta bs 08/12/24 10/21/24 Rx (Lexapro) Last Menstrual Period: 03/26/24 Zika: Zika virus screening: Negative : No PFSH PFSH Medical History Seasonal allergies Depression Anxiety Surgical History Previous section Kohler teeth extracted Family History Mother Thyroid disorder, Onset Age: 38 Hypothyroid Diabetes GDM with both pregnancies Grandmother Thyroid disorder, Onset Age: 55 Maternal-thyroid nodules benign Diabetes Maternal type 2 Grandmother Diabetes Paternal type 2 Social History adopted: No household members: spouse and children housing: house number of children: 1 current occupational status: unemployed current occupation: [employer] pets and animals: Yes (Avoid litterbox) pets [...] physical activity do you participate in: none janet/advent: [employer] seatbelt use: always do you feel safe at home: Yes 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 Date Name GA/Weeks Outcome Route Bth Weight Infant Gen Labor Lgth Anesthesia Del Locatn Provider FOB 08/06/20 [place] 39 live - full term 8#1oz Female spinal [facility] Dr. Enedina Balbuena Delivery Date: 08/06/20 Last Updated by: Rona Huff meconium & decels, prolonged labor HPI 30 WK OB *CSECTION Details: RADHA BOONE is a 23 year old who presents for routine OB visit. OB Visit RICHARD Calculator Estimated Delivery Date Method Current WG Current Estimate 12/31/24 LMP (Certain) 29w 6d Other Estimates 12/30/24 Ultrasound #1 30w 0d Expected Delivery Route/Plan plans repeat C/S with Specific Issue/Plans Covid status: [] Flu vaccine: [...] Date -?-?-?-?-?-?-?-?-?-?-?-?- EGA Weight BP Urine Prot -?-?-?-?-?-?-?-?-?-?--?-?- Glucose FHR FuHt Pres Dilation -?-?-?-?-?-?-?-?-?-?-?-?- Effaced [...] 4 oz (+5 lb 4 oz) 128/84 -?-?-?-?-?-?-?-?--?-?-?-?- 150 -?-?-?-?-?-?-?-?-?-?-?-?- JV- has some bro wn [...] oz) 118/72 Negative -?-?-?-?-?-?-?-?-?-?-?-?- Negative 144 -?-?-?-?-?-?-?-?-?-?-?-?- MH-No VB. Nausea resolved. Feeling flutters. 07/21/24 -?-?-?-?-?-?-?-?-?-?-?-?- 16w 5d 254 lb 8 oz (+4 lb 8 oz) 118/80 Negative -?-?-?-?-?-?-?-?-?-?-?-?- Negative 165 -?-?-?-?-?-?-?-?-?-?-?-?- KW- work in for FHT. having increased anxiety about wellbeing. fht and movement on US today. 08/11/24 -?-?-?-?-?-?--?-?-?-?-?-?- 19w 5d 262 lb 4 oz (+12 lb 4 oz) 112/75 Negative -?-?-?-?-?-?-?-?-?-?-?-?- Negative 163 -?-?-?-?-?-?-?-?-?-?-?-?- MH-No VB. Gustavo Browne on US. Reviewed US, rpt sched 08/19 to complete anatomy. 09/11/24 -?-?-?-?-?-?-?-?-?-?-?-?- 24w 1d 269 lb (+19 lb) 112/77 Trace -?-?-?-?-?-?-?-?-?-?-?-?- Negative 150 24 -?-?-?-?-?-?-?-?-?-?-?-?- SM- no vb lof go od fm nor euglar ctx discussed previous trauma and reviewed. struggled with the epidural. 10/10/24 -?-?-?-?-?-?-?-?-?-?-?-?- 28w 2d 280 lb 2 oz (+30 lb 2 oz) 107/69 Negative -?-?-?-?-?-?-?-?-?-?-?-?- Negative 155 29 -?-?-?-?-?-?-?-?-?-?-?-?- JV- declined tda p today JV- declined tdap today. loo at images of ultrsound from sunday and placenta is no longer over the cervix. ok to cancel next scan. growth was also adequate. no lof, vaginal bleeding, or dec fm. 10/21/24 -?-?-?-?-?-?-?-?-?-?-?-?- 29w 6d 282 lb 4 oz (+32 lb 4 oz) 117/81 Negative -?-?-?-?-?-?-?-?-?-?-?-?- Negative 145 31 -?-?-?-?-?-?-?-?-?-?-?-?- SM- discussed an d will get 3 hour gtt SM- discussed and will get 3 hour gtt n ovb lof good fm n oreuglar ctx ACOG First Trimester First Trimester: Discussed Second Trimester Second Trimester: Signs and Symptoms of Labor, Selecting a care provider, Reproductive Life Planning & Contreception, Care Planning, Depression/Anxiety and Intimate Partner Violence; Discussed Tobacco Cessation Third Trimester Third Trimester: Pain Management Plans, Labor support person(s), Immediate Larc, Signs and Symptoms of Preeclampsia, Feeding No , Education and Family Medical Leave or Disability Forms Results POC Urinalysis 2 Dip (Clinic) Office Urine Glucose Negative Last Edit by Matt Hartmann on 10/21/24 09:30 Office Urine Protein Negative Last Edit by Matt Hartmann on 10/21/24 09:30 Coding Level of Care Code OB Routine Diagnoses Vaginal bleeding during O46.90 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 US pending. d/c home (2) Marijuana smoker in remission: Status: Acute Comment: last used 03/25/24, education provided, informed of initial tox screen & random testing during (3) History of nicotine vaping: Status: Acute Comment: Quit 01/11/24 (4) Supervision of high-risk : Status: Acute Qualifiers: Trimester: second trimester Qualified Code(s): O09.92 - Supervision of high risk , unspecified, second trimester Comment: PRR, , RICHARD 12/31/24 BoySung, Bridger (5) : Status: Acute Qualifiers: Weeks of gestation: 29 weeks Qualified Code(s): Z3A.29 - 29 weeks gestation of Comment: discussed NIPT & Carrier testing- Undecided NIPT-Low Risk. Rpt US 08/19 to complete anatomy. (6) Premature ventricular contractions: Status: Acute Comment: started with COVID in last (7) Obesity affecting : Status: Acute Qualifiers: Obesity type affecting : unspecified obesity Trimester: second trimester Qualified Code(s): O99.212 - Obesity complicating , second trimester Comment: HgbA1c NSTs at 37 weeks (8) Hiatal hernia: Status: Acute Comment: dx 03/2024, small hernia (9) Previous section: Status: Acute Comment: plans repeat C/S. RLTCS BS 12/24/24 SM. (10) Abnormal glucose affecting : Status: Acute Comment: planning 3 hour Orders: Orders POC Urinalysis 2 Dip (Clinic) Today 10/21/24 1010 <Electronically signed by Ana Laura balderas MD> Date _ Ana Laura Mercado MD [facility] Signature: Date (if applicable) CC: ~ [facility] Work Phone: Progrvki note Author Ana Laura Mercado [facility] Note Date/Time November 07, 2024 11 :20am [facility] [address] [place] [address], [address] [place] [address] OFFICE VISIT Date of Service: 11/07/24 MR#: [id number] Acct: [id number] Name: RADHA BOONE Rep #: [id number] : 2000 Provider: Dr. Ruel Mercado MD Age/Sex: 23/F Location: [facility] [place] Status: Signed Intake Vital Signs 10/10/24 10:15 10/21/24 09:23 11/07/24 10:57 Height 5 ft 7 in 5 ft 7 in 5 ft 7 in Weight: 282 lb 4 oz 290 lb BMI 44.1 45.4 BP 117/81 H 123/86 H Intake Visit Reasons: 32 WK OB *CSECTION/ Practice Manager Required: No Is patient in pain?: No Allergies No Known Allergies Allergy (Verified 11/07/24 10:56) Medications ?Medication ?Instructions ?Recorded ?Confirmed ?Type vits no.105-iron 30 1 ea PO DAILY 12/28/19 History mg-folic acid 1.4 mg-dha 300 mg oral pack escitalopram oxalate 20 mg tablet 20 mg PO QDAY #90 ta bs 08/12/24 11/07/24 Rx (Lexapro) famotidine 20 mg tablet (Pepcid) 20 mg PO BID #60 tabs 11/07/24 11/07/24 Rx Last Menstrual Period: 03/26/24 Zika: Zika virus screening: Negative : No PFSH PFSH Medical History Seasonal allergies Depression Anxiety Surgical History Previous section Kohler teeth extracted Family History Mother Thyroid disorder, Onset Age: 38 Hypothyroid Diabetes GDM with both pregnancies Grandmother Thyroid disorder, Onset Age: 55 Maternal-thyroid nodules benign Diabetes Maternal type 2 Grandmother Diabetes Paternal type 2 Social History adopted: No household members: spouse and children housing: house number of children: 1 current occupational status: unemployed current occupation: [employer] pets and animals: Yes (Avoid litterbox) pets [...] physical activity do you participate in: none janet/advent: [employer] seatbelt use: always do you feel safe at home: Yes 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 Date Name GA/Weeks Outcome Route Bth Weight Gen Labor Lgth Anesthesia Del Locatn Provider FOB 08/06/20 Jennyigh 39 live - full term 8#1oz Female spinal [facility] Dr. Enedina Balbuena Delivery Date: 08/06/20 Last Updated by: Rona Huff meconium & decels, prolonged labor HPI 32 WK OB *CSECTION/SM Details: RADHA BOONE is a 23 year old who presents for routine OB visit. OB Visit RICHARD Calculator Estimated Delivery Date Method Current WG Current Estimate 12/31/24 LMP (Certain) 32w 2d Other Estimates 12/30/24 Ultrasound #1 32w 3d Expected Delivery Route/Plan plans repeat C/S with SM Specific Issue/Plans Covid status: [] Flu vaccine: [] Tdap vaccine: declined Rhogam: na LARC form signed: declined movement and labor precautions reviewed. Problem list reviewed and updated with the most current plan of care details and appropriate orders placed. Relevant counseling for the gestational age provided. Continue routine care and follow up unless otherwise noted in visit notes/problem list details Initial Weight: 250 lb Date -?-?-?-?-?-?-?--?-?-?-?-?- EGA Weight BP Urine Prot -?-?-?-?-?-?-?-?-?-?-?-?- Glucose [...] 8 oz) 118/80 Negative -?-?-?-?-?-?-?-?-?-?-?-?- Negative 165 -?--?-?-?-?-?-?-?-?-?-?-?- KW- work in for FHT. having increased anxiety about wellbeing. fht and movement on US today. 08/11/24 -?-?-?-?-?-?-?-?-?-?-?-?- 19w 5d 262 lb 4 oz (+12 lb 4 oz) 112/75 Negative -?-?-?-?-?-?-?-?-?-?-?-?- Negative 163 -?-?-?-?-?-?-?-?-?-?-?-?- -No VB. Gustavo Mckinnonia on US. Reviewed US, rpt sched 08/19 to complete anatomy. 09/11/24 -?-?-?-?-?-?-?-?-?-?-?-?- 24w 1d 269 lb (+19 lb) 112/77 Trace -?-?-?-?-?-?-?-?-?-?-?-?- Negative 150 24 -?-?-?-?-?-?-?-?-?-?-?-?- SM- no vb lof go od fm nor euglar ctx discussed previous trauma and reviewed. struggled with the epidural. 10/10/24 -?-?-?-?-?-?-?-?-?-?-?-?- 28w 2d 280 lb 2 oz (+30 lb 2 oz) 107/69 Negative -?-?-?-?-?-?-?-?-?-?-?-?- Negative 155 29 -?-?-?-?-?-?-?-?-?-?-?-?- JV- declined tda p today JV- declined tdap today. loo enrrique at images of ultrsound from sunday and placenta is no longer over the cervix. ok to cancel next scan. growth was also adequate. no lof, vaginal bleeding, or dec fm. 10/21/24 -?-?-?-?-?-?-?-?-?-?-?-?- 29w 6d 282 lb 4 oz (+32 lb 4 oz) 117/81 Negative -?-?-?-?-?-?-?-?-?-?-?-?- Negative 145 31 -?-?-?-?-?-?-?-?-?-?-?-?- SM- discussed an d will get 3 hour gtt SM- discussed and will get 3 hour gtt n ovb lof good fm n oreuglar ctx 11/07/24 -?-?-?-?-?-?-?-?-?-?-?-?- 32w 2d 290 lb (+40 lb) 123/86 -?-?-?-?-?-?--?-?-?-?-?-?- 140 33 -?-?-?-?-?-?-?-?-?-?-?-?- SM- no vb lof go od fm n oreuglar ctx nl 3 hr ACOG First Trimester First Trimester: Discussed Second Trimester Second Trimester: Signs and Symptoms of Labor, Selecting a care provider, Reproductive Life Planning & Contreception, Care Planning, Depression/Anxiety and Intimate Partner Violence; Discussed Tobacco Cessation Third Trimester Third Trimester: Pain Management Plans, Labor support person(s), Immediate Larc, Signs and Symptoms of Preeclampsia, Infant Feeding No , Education and Family Medical Leave or Disability Forms ROS Const Denies fever(s) GI Reports as per HPI and Denies abdominal pain Reports as per HPI, Denies abnormal vaginal bleeding, Denies dysuria and Denies vaginal discharge Exam Const General: healthy appearing, comfortable and no acute distress GI Inspection: normal to inspection Palpation: soft and nontender Coding Level of Care Code OB Routine Diagnoses Abnormal glucose affecting O99.810 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 History of nicotine vaping Z87.891 Supervision of high risk in second trimester O09.92 Trimester: second trimester 32 weeks gestation of Z3A.32 Weeks of gestation: 32 weeks Premature ventricular contractions I49.3 Obesity affecting in second trimester, unspecified obesity type O99.212 Obesity type affecting : unspecified obesity Trimester: second trimester Hiatal hernia K44.9 Previous section Z98.891 Assessment and Plan Assessment and Plan (1) Abnormal glucose affecting : Status: Acute Comment: nl 3 hr GTT (2) Marijuana smoker in remission: Status: Acute Comment: last used 03/25/24, education provided, informed of initial tox screen & random testing during (3) History of nicotine vaping: Status: Acute Comment: Quit 01/11/24 (4) Supervision of high-risk : Status: Acute Qualifiers: Trimester: second trimester Qualified Code(s): O09.92 - Supervision of high risk , unspecified, second trimester Comment: PRR, , RICHARD 12/31/24 Sung Thrasher, Bridger (5) : Status: Acute Qualifiers: Weeks of gestation: 32 weeks Qualified Code(s): Z3A.32 - 32 weeks gestation of Comment: discussed NIPT & Carrier testing- Undecided NIPT-Low Risk. Rpt US 08/19 to complete anatomy. (6) Premature ventricular contractions: Status: Acute Comment: started with COVID in last (7) Obesity affecting : Status: Acute Qualifiers: Obesity type affecting : unspecified obesity Trimester: second trimester Qualified Code(s): O99.212 - Obesity complicating , second trimester Comment: HgbA1c NSTs at 37 weeks (8) Hiatal hernia: Status: Acute Comment: dx 03/2024, small hernia (9) Previous section: Status: Acute Comment: plans repeat C/S. RLTCS BS 12/24/24 . Orders: Orders POC Urinalysis 2 Dip (Clinic) Today Medications: New famotidine (Pepcid) 20 mg PO BID 60 tabs 6RF 11/07/24 1120 <Electronically signed by Aan Laura balderas MD> Date _ Ana Laura Mercado MD Cos[employer] Signature: Date (if applicable) CC: ~ [facility] Work Phone: Reason for referral (narrative)* Consultation (Routine) - Authorized Specialty Diagnoses / Procedures Referred By Contac t Referred To Contact Primary Care Diagnoses Anxiety Depression, major, single episode, mild (CMS/HCC) Procedures Follow Up In Primary Care Jhon Scott DO [address] [place] [address] Referral ID Status Reason Start Date Expiration Date V isits Requested Visits Authorized [id number] Authorized 07/18/2022 01/14/2023 1 1 [facility] Work Phone: Reglxq for referral (narrative)* Consultation (Routine) - Authorized Specialty Diagnoses / Procedures Referred By Contac t Referred To Contact Primary Care Diagnoses Anxiety Depression, major, single episode, mild (CMS/HCC) Procedures Follow Up In Primary Care Jhon Scott DO [address] [place] [address] Referral ID Status Reason Start Date Expiration Date V isits Requested Visits Authorized [id number] Authorized 08/15/2022 02/11/2023 1 1 [facility] Work Phone: reason for referral (narrative)* Consultation (Routine) - Authorized Specialty Diagnoses / Procedures Referred By Contac t Referred To Contact Primary Care Diagnoses Anxiety Depression, major, single episode, mild (CMS/HCC) Procedures Follow Up In Primary Care - Established Jhon Scott DO [address] [facility] [address] [place] [address] Referral ID Status Reason Start Date Expiration Date V isits Requested Visits Authorized [id number] Authorized 11/14/2022 05/13/2023 1 1 [facility] Work Phone: Retdmn for referral (narrative)* Consultation (Routine) - Authorized Specialty Diagnoses / Procedures Referred By Contac t Referred To Contact Primary Care Diagnoses Depression, major, single episode, mild (CMS/HCC) Procedures Follow Up In Primary Care - Established Jhon Scott DO [address] [facility] [address] [place] [id number] Referral ID Status Reason Start Date Expiration Date V isits Requested Visits Authorized [id number] Authorized 01/16/2023 01/16/2024 1 1 [facility] Work Phone: reason for referral (narrative)* Consultation [...] In Primary Care - Established Jhon Scott [address] [place] [address] Referral ID Status Reason Start Date Expiration Date V isits Requested Visits Authorized [id number] Authorized 05/15/2023 05/14/2024 1 1 [facility] Work Phone: reason for referral (narrative)* Consultation [...] - Established Marry Scottann-marie Aguila DO [address] [address] Referral ID Status Reason Start Date Expiration Date V isits Requested Visits Authorized [id number] Authorized 06/20/2023 06/19/2024 1 1 [facility] Work Phone: Reason for referral (narrative)* Consultation (Routine) - Authorized Specialty Diagnoses / Procedures Referred By Contac t Referred To Contact Primary Care Diagnoses Anxiety Depression, major, single episode, mild (CMS-HCC) Vitamin D deficiency Iron deficiency Procedures Follow Up In Primary Care - Established Marry Scottann-marie Aguila DO [address] [address] Referral ID Status Reason Start Date Expiration Date V isits Requested Visits Authorized [id number] Authorized 09/19/2023 09/18/2024 1 1 [facility] Work Phone: Recxku for referral (narrative)* Consultation (Routine) - Authorized Specialty Diagnoses / Procedures Referred By Contac t Referred To Contact Primary Care Diagnoses Anxiety Depression, major, single episode, mild (CMS/HCC) Procedures Follow Up In Primary Care ScottJhon DO [address] [address] Referral ID Status Reason Start Date Expiration Date V isits Requested Visits Authorized [id number] Authorized 06/02/2022 11/29/2022 1 1 [facility] Work Phone: Reason for referral (narrative)No reason for referral information [facility] Work Phone: Reason for visit Narrative* Consultation (Routine) - Authorized Specialty Diagnoses / Procedures Referred By Contac t Referred To Contact Primary Care Diagnoses Anxiety Depression, major, single episode, mild (CMS/HCC) Procedures Follow Up In Primary Care Jhon Scott DO [place] [address] [place] [address] Referral ID Status Reason Start Date Expiration Date V isits Requested Visits Authorized [id number] Authorized 07/18/2022 01/14/[address] [facility] Work Phone: Reason for visit Narrative* Consultation (Routine) - Authorized Specialty Diagnoses / Procedures Referred By Contac t Referred To Contact Primary Care Diagnoses Anxiety Depression, major, single episode, mild (CMS/HCC) Procedures Follow Up In Primary Care Deion Scottsvitlana Aguila DO [address] [place] [address] Referral ID Status Reason Start Date Expiration Date V isits Requested Visits Authorized [id number] Authorized 08/15/2022 02/11/[address] [facility] Work Phone: Reason for visit Narrative* Consultation (Routine) - Closed Specialty Diagnoses / Procedures Referred By Contac t Referred To Contact Primary Care Diagnoses Anxiety Depression, major, single episode, mild (CMS/HCC) Procedures Follow Up In Primary Care - Established ScottMarryJhonann-marie Aguila DO [address] [place] [address] Referral ID Status Reason Start Date Expiration Date Visits Re quested Visits Authorized [id number] Closed 11/14/2022 05/13/[address] [facility] Work Phone: Reason for visit Narrative* [...] In Primary Care - Established Jhon Scott, DO [address] [facility] [place] [id number] Referral ID Status Reason Start Date Expiration Date V isits Requested Visits Authorized [id number] Authorized 05/15/2023 05/14/[address] [facility] Work Phone: reason for visit Narrative* Consultation (Routine) - Authorized Specialty Diagnoses / Procedures Referred By Contac t Referred To Contact Primary Care Diagnoses Anxiety Depression, major, single episode, mild (CMS-HCC) Vitamin D deficiency Iron deficiency Procedures Follow Up In Primary Care - Established Jhon Scott, DO [address] [facility] [place] [phone] Phone: tel: fax: Referral ID Status Reason Start Date Expiration Date V isits Requested Visits Authorized [id number] Authorized 09/19/2023 09/18/[address] [facility] Work Phone: Rekikz for visit Narrative* Consultation (Routine) - Authorized Specialty Diagnoses / Procedures Referred By Contac t Referred To Contact Primary Care Diagnoses Anxiety Depression, major, single episode, mild (CMS-HCC) Class 3 severe obesity due to excess calories with serious comorbidity and body mass index (BMI) of 40.0 to 44.9 in adult (Multi) Procedures Follow Up In Primary Care - Established Jhon Scott, DO [address] [facility] [place] [phone] Referral ID Status Reason Start Date Expiration Date V isits Requested Visits Authorized [id number] Authorized 06/20/2023 06/19/[address] [facility] Work Phone: reason for visit Narrative* Evaluate and Treat (Routine) - Pending Review Specialty Diagnoses / Procedures Referred By Contac t Referred To Contact Gastroenterology Diagnoses Epigastric pain Jhon Scott [address] [facility] [address] [place] [phone] Phone: tel: fax: Pla Booker MD [address] [place] [address] Phone: tel: fax: Referral ID Status Reason Start Date Expiration Date Visits Requested Visits Authorized [id number] Pending Review Specialty Services Required/Pat ient's Best Interest 03/10/[address] [facility] Summary Purpose Family History No Family [...] No May 20, 2024 12:36pm Power of Website Optimization Strategist No May 20 12:36pm Advance Directive Response Recorded Date/ Time Living Will No May 20, 2024 12:36pm Do you have a Healthcare Power of Website Optimization Strategist? No May 20, 2024 12:36pm Advance Directive Response Recorded Date/ Time Living Will No May 20, 2024 12:36pm Do you have a Healthcare Power of Website Optimization Strategist? No May 20, 2024 12:36pm Living Will No June 13, 2024 4:30pm Do you have a Healthcare Power of Website Optimization Strategist? No June 13, 2024 4:30pm Advance Directive Response Recorded Date/ Time Living Will No June 13, 2024 4:30pm Do you have a Healthcare Power of Website Optimization Strategist? No June 13, 2024 4:30pm Chief Complaint [...] May 20, 2024 11: 09am NOB, LMP /15, RICHARD 12/31/24 May 23, 2024 10:46am brown [...] 13, 2024 3:47pm Obesity affecting June 13 025 3:47pm June 13, 2024 3:47 pm Premature ventricular contractions June 13, 2024 3:47pm Previous section June 13 3:47pm Supervision of high-risk June 13, 2024 3:47pm Hiatal hernia June 19, 2024 2:5 5pm History of nicotine vaping June 19 2 025 2:55pm Marijuana smoker in remission [...] 2024 11: 20am History of nicotine vaping Justa 21st, 2 025 11:20am Marijuana smoker in remission [...] 11, 2024 9:55am Chief Complaint Admit Date brown spotting and pain June 13, 2024 3:47pm abd pain June 13, 2024 4:23 pm 12 wk OB June 19, 2024 2:5 5pm Heartbeat check June 30, 2024 11: 20am 16 wk ob July 16, 2024 10:21a m FHT check July 21, 2024 3:17p m 20 wk ob August 11, 2024 9:55a m 24 wk ob September 11, 2024 10:39 am BLEEDING & CRAMPING October 05, 2024 2:15 pm BLEEDING & CRAMPING October 05, 2024 5:15 pm Reason for Visit Admit Date Hiatal hernia June 13, 2024 3:47 pm History of nicotine vaping June 13 3:47pm Marijuana smoker in remission June 13, 2024 3:47pm Obesity affecting June 13, 025 3:47pm June 13, 2024 3:47 pm [...] 10:21am Marijuana smoker in remission July 16 025 10:21am Obesity affecting July 16 10:21am July [...] Supervision of high-risk August 11, 2024 9:55am Complete placenta previa nos or without hemorrhage, second trimester September 11, 2024 10:39am Hiatal hernia September 11, 2024 10:39 am History of nicotine vaping September 11 10:39am Marijuana smoker in remission September 11, 2024 10:39am Obesity affecting September 11 10:39am September 11, 2024 10:39 am Premature ventricular contractions September 11, 2024 10:39am Previous section September 11, 2024 10:39am Supervision of high-risk September 11, 2024 10:39am Complete placenta previa nos or without hemorrhage, second trimester October 05, 2024 2:15pm Hiatal hernia October 05, 2024 2:15 pm History of nicotine vaping October 05 2:15pm Marijuana smoker in remission October 05, 2024 2:15pm Obesity affecting October 05, 2 025 2:15pm October 05, 2024 2:15 pm Premature ventricular contractions October 05, 2024 2:15pm Previous section October 05 2:15pm Supervision of high-risk October 05, 2024 2:15pm Vaginal bleeding during September 102024 2:15pm Chief Complaint Admit Date brown spotting and pain June 13, 2024 3:47pm abd pain June 13, 2024 4:23 pm 12 wk OB June 19, 2024 2:5 5pm Heartbeat check June 30, 2024 11: 20am 16 wk ob July 16, 2024 10:21a m FHT check July 21, 2024 3:17p m 20 wk ob August 11, 2024 9:55a m 24 wk ob September 11, 2024 10:39 am BLEEDING & CRAMPING October 05, 2024 2:15 pm BLEEDING & CRAMPING October 05, 2024 5:15 pm 28WK OB/GLUCOSE *CSECTION October 10 9:52am Reason for Visit Admit Date Hiatal hernia June 13, 2024 3:47 pm History of nicotine vaping June 13 3:47pm Marijuana smoker in remission June 13, 2024 3:47pm Obesity affecting June 13, 025 3:47pm June 13, 2024 3:47 pm Premature ventricular contractions June 13, 2024 3:47pm Previous section June 13 3:47pm Supervision of high-risk June 13, 2024 3:47pm Hiatal hernia June 19, 2024 2:5 5pm History of nicotine vaping June 19, 025 2:55pm Marijuana smoker in remission June [...] 2024 10:21am Marijuana smoker in remission July 16, 025 10:21am Obesity affecting July 16 10:21am July [...] Supervision of high-risk August 11, 2024 9:55am Complete placenta previa nos or without hemorrhage, second trimester September 11, 2024 10:39am Hiatal hernia September 11, 2024 10:39 am History of nicotine vaping September 11 10:39am Marijuana smoker in remission September 11, 2024 10:39am Obesity affecting September 11 10:39am September 11, 2024 10:39 am Premature ventricular contractions September 11, 2024 10:39am Previous section September 11, 2024 10:39am Supervision of high-risk September 11, 2024 10:39am Complete placenta previa nos or without hemorrhage, second trimester October 05, 2024 2:15pm Hiatal hernia October 05, 2024 2:15 pm History of nicotine vaping October 05 2:15pm Marijuana smoker in remission October 05, 2024 2:15pm Obesity affecting October 05, 025 2:15pm October 05, 2024 2:15 pm Premature ventricular contractions October 05, 2024 2:15pm Previous section October 05 2:15pm Supervision of high-risk October 05, 2024 2:15pm Vaginal bleeding during September 102024 2:15pm Complete placenta previa nos or without hemorrhage, second trimester October 10, 2024 9:52am Hiatal hernia October 10, 2024 9:5 2am History of nicotine vaping October 10 025 9:52am Marijuana smoker in remission October 9:52am Obesity affecting October 10, 2024 9:52am October 10, 2024 9:5 2am Premature ventricular contractions Octus 2024 9:52am Previous section October 10 9:52am Supervision of high-risk Octus 2024 9:52am Vaginal bleeding during October 10, 2024 9:52am Chief Complaint Admit Date 12 wk OB June 19, 2024 2:5 5pm Heartbeat check June 30, 2024 11: 20am 16 wk ob July 16, 2024 10:21a m FHT check July 21, 2024 3:17p m 20 wk ob August 11, 2024 9:55a m 24 wk ob September 11, 2024 10:39 am BLEEDING & CRAMPING October 05, 2024 2:15 pm BLEEDING & CRAMPING October 05, 2024 5:15 pm 28WK OB/GLUCOSE *CSECTION October 10 9:52am Reason for Visit Admit Date Hiatal hernia June 19, 2024 2:5 5pm [...] Supervision of high-risk August 11, 2024 9:55am Complete placenta previa nos or without hemorrhage, second trimester September 11, 2024 10:39am Hiatal hernia September 11, 2024 10:39 am History of nicotine vaping September 11 10:39am Marijuana smoker in remission September 11, 2024 10:39am Obesity affecting September 11 10:39am September 11, 2024 10:39 am Premature ventricular contractions September 11, 2024 10:39am Previous section September 11, 2024 10:39am Supervision of high-risk September 11, 2024 10:39am Complete placenta previa nos or without hemorrhage, second trimester October 05, 2024 2:15pm Hiatal hernia October 05, 2024 2:15 pm History of nicotine vaping October 05 2:15pm Marijuana smoker in remission October 05, 2024 2:15pm Obesity affecting October 05 025 2:15pm October 05, 2024 2:15 pm Premature ventricular contractions October 05, 2024 2:15pm Previous section October 05 2:15pm Supervision of high-risk October 05, 2024 2:15pm Vaginal bleeding during September 102024 2:15pm Complete placenta previa nos or without hemorrhage, second trimester October 10, 2024 9:52am Hiatal hernia October 10, 2024 9:5 2am History of nicotine vaping October 10 9:52am Marijuana smoker in remission October 9:52am Obesity affecting October 10, 2024 9:52am October 10, 2024 9:5 2am Premature ventricular contractions Octus 2024 9:52am Previous section October 10 9:52am Supervision of high-risk 2024 9:52am Vaginal bleeding during October 10, 2024 9:52am Chief Complaint Admit Date Heartbeat check June 30, 2024 11: 20am 16 wk ob July 16, 2024 10:21a m FHT check July 21, 2024 3:17p m 20 wk ob August 11, 2024 9:55a m 24 wk ob September 11, 2024 10:39 am BLEEDING & CRAMPING October 05, 2024 2:15 pm BLEEDING & CRAMPING October 05, 2024 5:15 pm 28WK OB/GLUCOSE *CSECTION October 10 9:52am 30 WK OB *CSECTION October 21, 2024 9: 20am Reason for Visit Admit Date Hiatal hernia June 30, 2024 11: 20am History of nicotine vaping June 30 025 11:20am Marijuana smoker in remission June 11:20am Obesity affecting June 30, 2024 11:20am June 30, 2024 11: 20am Premature ventricular contractions June 30, 2024 11:20am Previous section June 30 11:20am Supervision of high-risk June 30, 2024 11:20am Hiatal hernia July 16, 2024 10:21a m History of nicotine vaping July 16, 2024 10:21am Marijuana smoker in remission July 16 025 10:21am Obesity affecting July 16 10:21am July [...] 3:17pm Supervision of high-risk July 102024 3:17pm History of nicotine vaping August 11 9:55am Marijuana smoker in remission August 11, 2024 9:55am Obesity affecting August 11 9:55am August 11, 2024 9:55a m Premature ventricular contractions August 11, 2024 9:55am Previous section August 11, 2024 9:55am Supervision of high-risk August 11, 2024 9:55am Complete placenta previa nos or without hemorrhage, second trimester August 11, 2024 9:55am Hiatal hernia September 11, 2024 10:39 am History of nicotine vaping September 11 10:39am Marijuana smoker in remission September 11, 2024 10:39am Obesity affecting September 11 10:39am September 11, 2024 10:39 am Premature ventricular contractions September 11, 2024 10:39am Previous section September 11, 2024 10:39am Supervision of high-risk September 11, 2024 10:39am Complete placenta previa nos or without hemorrhage, second trimester September 11, 2024 10:39am Hiatal hernia October 05, 2024 2:15 pm History of nicotine vaping October 05 2:15pm Marijuana smoker in remission October 05, 2024 2:15pm Obesity affecting October 05, 025 2:15pm October 05, 2024 2:15 pm Premature ventricular contractions October 05, 2024 2:15pm Previous section October 05 2:15pm Supervision of high-risk October 05, 2024 2:15pm Complete placenta previa nos or without hemorrhage, second trimester October 05, 2024 2:15pm Vaginal bleeding during September 102024 2:15pm Hiatal hernia October 10, 2024 9:5 2am History of nicotine vaping October 10 9:52am Marijuana smoker in remission October 9:52am Obesity affecting October 10, 2024 9:52am October 10, 2024 9:5 2am Premature ventricular contractions Augus 2024 9:52am Previous section October 10 9:52am Supervision of high-risk Octus 2024 9:52am Complete placenta previa nos or without hemorrhage, second trimester October 10, 2024 9:52am Vaginal bleeding during October 10, 2024 9:52am Abnormal glucose affecting Oct 9:20am Hiatal hernia October 21, 2024 9: 20am History of nicotine vaping October 21, 2024 9:20am Marijuana smoker in remission October 9:20am Obesity affecting October 21, 2024 9:20am October 21, 2024 9: 20am Premature ventricular contractions Octus 2024 9:20am Previous section October 21 9:20am Supervision of high-risk 2024 9:20am Vaginal bleeding during October 21, 2024 9:20am Chief Complaint Admit Date 16 wk ob July 16, 2024 10:21a m FHT check July 21, 2024 3:17p m 20 wk ob August 11, 2024 9:55a m 24 wk ob September 11, 2024 10:39 am BLEEDING & CRAMPING October 05, 2024 2:15 pm BLEEDING & CRAMPING October 05, 2024 5:15 pm 28WK OB/GLUCOSE *CSECTION October 10 9:52am 30 WK OB *CSECTION October 21, 2024 9: 20am Encounter for screening for diabetes stephanie litus November 06, 2024 10:05am 32 WK OB *CSECTION/SM November 07, 2024 10:53am Reason for Visit Admit Date Hiatal hernia July 16, 2024 10:21a m History of nicotine vaping July 16, 2024 10:21am Marijuana smoker in remission July 16, 2 025 10:21am Obesity affecting July 16 10:21am July [...] 3:17pm Supervision of high-risk July 102024 3:17pm History of nicotine vaping August 11 9:55am Marijuana smoker in remission August 11, 2024 9:55am Obesity affecting August 11 9:55am August 11, 2024 9:55a m Premature ventricular contractions August 11, 2024 9:55am Previous section August 11, 2024 9:55am Supervision of high-risk August 11, 2024 9:55am Complete placenta previa nos or without hemorrhage, second trimester August 11, 2024 9:55am Hiatal hernia September 11, 2024 10:39 am History of nicotine vaping September 11 10:39am Marijuana smoker in remission September 11, 2024 10:39am Obesity affecting September 11 10:39am September 11, 2024 10:39 am Premature ventricular contractions September 11, 2024 10:39am Previous section September 11, 2024 10:39am Supervision of high-risk September 11, 2024 10:39am Complete placenta previa nos or without hemorrhage, second trimester September 11, 2024 10:39am Hiatal hernia October 05, 2024 2:15 pm History of nicotine vaping October 05 2:15pm Marijuana smoker in remission October 05, 2024 2:15pm Obesity affecting October 05, 2:15pm October 05, 2024 2:15 pm Premature ventricular contractions October 05, 2024 2:15pm Previous section October 05 2:15pm Supervision of high-risk October 05, 2024 2:15pm Complete placenta previa nos or without hemorrhage, second trimester October 05, 2024 2:15pm Vaginal bleeding during September 102024 2:15pm Hiatal hernia October 10, 2024 9:5 2am History of nicotine vaping October 10 9:52am Marijuana smoker in remission October 9:52am Obesity affecting October 10, 2024 9:52am October 10, 2024 9:5 2am Premature ventricular contractions Augus 2024 9:52am Previous section October 10 9:52am Supervision of high-risk Octus 2024 9:52am Complete placenta previa nos or without hemorrhage, second trimester October 10, 2024 9:52am Vaginal bleeding during October 10, 2024 9:52am Abnormal glucose affecting Oct 9:20am Hiatal hernia October 21, 2024 9: 20am History of nicotine vaping October 21, 2024 9:20am Marijuana smoker in remission October 9:20am Obesity affecting October 21, 2024 9:20am October 21, 2024 9: 20am Premature ventricular contractions Octus t 2024 9:20am Previous section October 21 9:20am Supervision of high-risk Octus 2024 9:20am Vaginal bleeding during October 21, 2024 9:20am Abnormal glucose affecting Oct 10:53am Hiatal hernia November 07, 2024 10 :53am History of nicotine vaping November 07, 2024 10:53am Marijuana smoker in remission October 10:53am Obesity affecting November 07, 2024 10:53am November 07, 2024 10 :53am Premature ventricular contractions Augus t 2024 10:53am Previous section November 07 025 10:53am Supervision of high-risk Augus t 2024 10:53am Chief Complaint Admit Date FHT check July 21, 2024 3:17p m 20 wk ob Rody 2nd, 2025 9:55a m 24 wk ob September 11, 2024 10:39 am BLEEDING & CRAMPING October 05, 2024 2:15 pm BLEEDING & CRAMPING October 05, 2024 5:15 pm 28WK OB/GLUCOSE *CSECTION October 10 9:52am 30 WK OB *CSECTION October 21, 2024 9: 20am Encounter for screening for diabetes stephanie litus November 06, 2024 10:05am 32 WK OB *CSECTION/SM November 07, 2024 10:53am 34 WK OB *CSECTION November 18, 2024 1:48pm Reason for Visit Admit Date Hiatal hernia July 21, 2024 3:17p m History of nicotine vaping July 21 3:17pm Marijuana smoker in remission July 21, 2024 3:17pm Obesity affecting July 21 3:17pm July 21, 2024 3:17p m Premature ventricular contractions July 102024 3:17pm Previous section July 21, 2024 3:17pm Supervision of high-risk July 102024 3:17pm History of nicotine vaping August 11 9:55am Marijuana smoker in remission August 11, 2024 9:55am Obesity affecting August 11 9:55am August 11, 2024 9:55a m Premature ventricular contractions August 11, 2024 9:55am Previous section August 11, 2024 9:55am Supervision of high-risk August 11, 2024 9:55am Complete placenta previa nos or without hemorrhage, second trimester August 11, 2024 9:55am Hiatal hernia September 11, 2024 10:39 am History of nicotine vaping September 11 10:39am Marijuana smoker in remission September 11, 2024 10:39am Obesity affecting September 11 10:39am September 11, 2024 10:39 am Premature ventricular contractions September 11, 2024 10:39am Previous section September 11, 2024 10:39am Supervision of high-risk September 11, 2024 10:39am Complete placenta previa nos or without hemorrhage, second trimester September 11, 2024 10:39am Hiatal hernia October 05, 2024 2:15 pm History of nicotine vaping October 05 2:15pm Marijuana smoker in remission October 05, 2024 2:15pm Obesity affecting October 05 025 2:15pm October 05, 2024 2:15 pm Premature ventricular contractions October 05, 2024 2:15pm Previous section October 05 2:15pm Supervision of high-risk October 05, 2024 2:15pm Complete placenta previa nos or without hemorrhage, second trimester October 05, 2024 2:15pm Vaginal bleeding during September 102024 2:15pm Hiatal hernia October 10, 2024 9:5 2am History of nicotine vaping October 10 9:52am Marijuana smoker in remission October 9:52am Obesity affecting October 10, 2024 9:52am October 10, 2024 9:5 2am Premature ventricular contractions Octus 2024 9:52am Previous section October 10 9:52am Supervision of high-risk Octus t 2024 9:52am Complete placenta previa nos or without hemorrhage, second trimester October 10, 2024 9:52am Vaginal bleeding during October 10, 2024 9:52am Abnormal glucose affecting Oct 9:20am Hiatal hernia October 21, 2024 9: 20am History of nicotine vaping October 21, 2024 9:20am Marijuana smoker in remission October 9:20am Obesity affecting October 21, 2024 9:20am October 21, 2024 9: 20am Premature ventricular contractions Octus t 2024 9:20am Previous section October 21 025 9:20am Supervision of high-risk Augus t 2024 9:20am Vaginal bleeding during October 21, 2024 9:20am Abnormal glucose affecting Oct 10:53am Hiatal hernia November 07, 2024 10 :53am History of nicotine vaping November 07, 2024 10:53am Marijuana smoker in remission October 10:53am Obesity affecting November 07, 2024 10:53am November 07, 2024 10 :53am Premature ventricular contractions Augus t 2024 10:53am Previous section November 07, 025 10:53am Supervision of high-risk Augus t 2024 10:53am Abnormal glucose affecting Sep tember 2024 1:48pm Hiatal hernia November 18, 2024 1:48pm History of nicotine vaping November 1:48pm Marijuana smoker in remission November 18, 2024 1:48pm Obesity affecting November 1:48pm November 18, 2024 1:48pm Premature ventricular contractions [facility] 2024 1:48pm Previous section November 18, 2024 1:48pm Supervision of high-risk [facility] 2024 1:48pm Additional Source Comments INFORMATION SOURCE (unrecogn ized section and content) DATE CREATED AUTHOR 08/30/2017 [facility] DATE CREATED AUTHOR AUTHOR'S ORGANIZ ATION 11/03/2017 [facility] DATE CREATED AUTHOR AUTHOR'S ORGANIZ ATION 02/24/2018 [facility] DATE CREATED AUTHOR AUTHOR'S ORGANIZ ATION 09/02/2018 [facility] DATE CREATED AUTHOR AUTHOR'S ORGANIZ ATION 02/04/2021 [facility] DATE CREATED AUTHOR AUTHOR'S ORGANIZ ATION 02/04/2021 [facility] DATE CREATED AUTHOR AUTHOR'S ORGANIZ ATION 03/25/2022 [facility] DATE CREATED AUTHOR AUTHOR'S ORGANIZ ATION 05/30/2022 [facility] DATE CREATED AUTHOR AUTHOR'S ORGANIZ ATION 12/06/2023 [facility] DATE CREATED AUTHOR AUTHOR'S ORGANIZ ATION 03/08/2024 [facility] DATE CREATED AUTHOR AUTHOR'S ORGANIZ ATION 03/09/2024 [facility] DATE CREATED AUTHOR AUTHOR'S ORGANIZ ATION 03/21/2024 [facility] DATE CREATED AUTHOR AUTHOR'S ORGANIZ ATION 04/05/2024 [facility] DATE CREATED AUTHOR AUTHOR'S ORGANIZ ATION 04/10/2024 [facility] DATE CREATED AUTHOR AUTHOR'S ORGANIZ ATION 08/20/2024 [facility] DATE CREATED AUTHOR AUTHOR'S ORGANIZ ATION 11/29/[address] [place] [address] Reason for Visit (unrecogniz ed section and content) Reason Comments Anxiety Depression Vitamin D Deficiency Iron Deficiency Specialty Diagnoses / Procedures Referred By Leon t Referred To Contact Primary Care Diagnoses Anxiety Depression, major, single episode, mild (CMS/HCC) Procedures Follow Up In Primary Care Jhon Scott DO [address] [address] Referral ID Status Reason Start Date Expiration Date V isits Requested Visits Authorized [id number] Authorized 06/16/2022 12/13/2022 1 1 Reason Comments Anxiety Depression Reason Comments Nausea C/o nausea x 1 week when she eats. Denies v/d. Denies any urinary problems. C/o constipation Care Teams (unrecognized sec tion and content) Garbage Collection Supervisor Relationship Specialty Start Date End Date Jhon Scott DO [address] [address] PCP - General 03/09/22 Garbage Collection Supervisor Relationship Specialty Start Date End Date Jhon Scott DO [address] [address] PCP - General 03/09/22 Garbage Collection Supervisor Relationship Specialty Start Date End Date Jhon Scott DO [address] [address] PCP - General 03/09/22 Garbage Collection Supervisor Relationship Specialty Start Date End Date Jhon Scott DO [address] [address] PCP - General 03/09/22 Jhon Scott DO [address] [address] PCP - MMO ACO PCP 11/10/22 Garbage Collection Supervisor Relationship Specialty Start Date End Date ScottMarryJhon A, DO [address] [address] PCP - General 03/09/22 ScottMarryJhon A, DO [address] [address] PCP - MMO ACO PCP 11/10/22 Garbage Collection Supervisor Relationship Specialty Start Date End Date ScottMarryJhon Mingo, DO [address] [address] PCP - General 03/09/22 ScottMarryJhon A, DO [address] [address] PCP - MMO ACO PCP 11/10/22 Garbage Collection Supervisor Relationship Specialty Start Date End Date ScottMarryJhon Mingo DO [address] [address] PCP - General 03/09/22 Garbage Collection Supervisor Relationship Specialty Start Date End Date ScottMarryJhonann-marie Aguila DO [address] [address] PCP - General 03/09/22 Jhon Scott, DO [address] [address] PCP - MMO ACO PCP 11/10/22 Garbage Collection Supervisor Relationship Specialty Start Date End Date ScottMarryJhon A, DO [address] [address] (work) PCP - General 03/09/22 Garbage Collection Supervisor Relationship Specialty Start Date End Date No, Physician [facility] PCP - General 03/24/21 Garbage Collection Supervisor Relationship Specialty Start Date End Date No, Physician [facility] PCP - General 03/24/21 Garbage Collection Supervisor Relationship Specialty Start Date End Date No, Physician [facility] PCP - General 03/24/21 Garbage Collection Supervisor Relationship Specialty Start Date End Date No, Physician [facility] PCP - General 03/24/21 Team Status: Active Member Role Status Dates JHON SCOTT DO Primary Care Provider Active Team Status: Inactive Member Role Status Dates Dr. Brody Cleaning , Emergency Provider Active [...] June 19, 2024 Dr. Elissa Weldon , Referring Provider Activ e Start: June 19, 2024 End: June 19, 2024 Team Status: Inactive Member Role Status Dates JHON SCOTT DO Primary Care Provider Active Start: June 30, 2024 End: June 30, 2024 JHON SCOTT DO Referring Provider Active Sta rt: June 30, 2024 End: June 30, 2024 Amada Black CNM Attending Provider Active S tart: June 30, 2024 End: June 30, 2024 Team Status: Inactive Member Role Status Dates JHON SCOTT DO Primary Care Provider Active Start: July 16, 2024 End: July 16, 2024 JHON SCOTT DO Referring Provider Active Sta rt: July 16, 2024 End: July 16, 2024 Matt Ashley BAND HEAD SAW OPERATOR, BAND HEAD SAW OPERATOR-C Attending Provider Active Start: July 16, 2024 End: July 16, 2024 Team Status: Inactive Member Role Status Dates JHON SCOTT , DO Primary Care Provider Active Start: July [...] 2024 End: August 11, 2024 Matt Ashley BAND HEAD SAW OPERATOR, BAND HEAD SAW OPERATOR-C Attending Provider Active Start: August 11, 2024 [...] 2024 End: June 13, 2024 Dr. Rubens Esucdero MD Attending Provider Active Start: June 13, [...] June 19, 2024 Dr. Elissa Weldon , Referring Provider Activ e Start: June 19, 2024 End: June 19, 2024 Team Status: Inactive Member Role/Relationship Status Dates JHON SOCTT DO Primary Care Provider Active Start: June 30, 2024 End: June 30, 2024 JHON SCOTT DO Referring Provider Active Sta rt: June 30, 2024 End: June 30, 2024 Amada Black CNM Attending Provider Active S tart: June 30, 2024 End: June 30, 2024 Team Status: Inactive Member Role/Relationship Status Dates JHON SCOTT DO Primary Care Provider Active Start: July 16, 2024 End: July 16, 2024 JHON SCOTT DO Referring Provider Active Sta rt: July 16, 2024 End: July 16, 2024 Matt Ashley NP, BAND HEAD SAW OPERATOR-C Attending Provider Active Start: July 16, 2024 [...] , DO Primary Care Provider Active Start: August 11, 2024 End: August 11, 2024 JHON SCOTT , DO Referring Provider Active Sta rt: August 11, 2024 End: August 11, 2024 Matt Ashley BAND HEAD SAW OPERATOR, BAND HEAD SAW OPERATOR-C Attending Provider Active Start: August 11, 2024 End: August 11, 2024 Team Status: Inactive Member Role/Relationship Status Dates JHON SCOTT , DO Primary Care Provider Active Start: September 11, 2024 End: September 11, 2024 JHON SCOTT , DO Referring Provider Active Sta rt: September 11, 2024 End: September 11, 2024 Dr. Ana Laura Mercado MD Attending Provider Active Start: September 11, 2024 End: September 11, 2024 Team Status: Inactive Member Role/Relationship Status Dates JHON SCOTT , DO Primary Care Provider Active Start: June 13, 2024 End: June 13, 2024 JHON SCOTT , DO Referring Provider [...] 2024 End: June 19, 2024 JHON SCOTT , DO Primary Care Provider Active Start: June 19, 2024 End: June 19, 2024 Team Status: Inactive Member Role/Relationship Status Dates JHON SUEE , DO Primary Care Provider Active Start: June 19, 2024 End: June 19, 2024 Dr. Elissa Weldon DO Attending Provider Activ e Start: June 19, 2024 End: June 19, 2024 Dr. Elissa Weldon , Referring Provider Activ e Start: June 19, 2024 End: June 19, 2024 Team Status: Inactive Member Role/Relationship Status Dates JHONANN-MARIE SCOTT , DO Primary Care Provider Active Start: June 30, 2024 End: June 30, 2024 JHON HALE , DO Referring Provider Active Sta rt: June 30, 2024 End: June 30, 2024 Amada Black CNM Attending Provider Active S tart: June 30, 2024 End: June 30, 2024 Team Status: Inactive Member Role/Relationship Status Dates JHON SCOTT , DO Primary Care Provider Active Start: July 16, 2024 End: July 16, 2024 JHON SCOTT , DO Referring Provider Active Sta rt: July 16, 2024 End: July 16, 2024 Matt Ashley BAND HEAD SAW OPERATOR, BAND HEAD SAW OPERATOR-C Attending Provider Active Start: July 16, 2024 End: July 16, 2024 Team Status: Inactive Member Role/Relationship Status Dates JHONANN-MARIE SCOTT , DO Primary Care Provider Active Start: July 21, 2024 End: July 21, 2024 JHON HALE , DO Referring Provider Active Sta rt: July 21, 2024 End: July 21, 2024 Amada Black CNM Attending Provider Active S tart: July 21, 2024 End: July 21, 2024 Team Status: Inactive Member Role/Relationship Status Dates JHONANN-MARIE SCOTT , DO Primary Care Provider Active Start: August 11, 2024 End: August 11, 2024 JHONANN-MARIE SCOTT , DO Referring Provider Active Sta rt: August 11, 2024 End: August 11, 2024 Matt Ashley BAND HEAD SAW OPERATOR, BAND HEAD SAW OPERATOR-C Attending Provider Active Start: August 11, 2024 End: August 11, 2024 Team Status: Inactive Member Role/Relationship Status Dates JHON SCOTT DO Primary Care Provider Active Start: September 11, 2024 End: September 11, 2024 JHON SCOTT , DO Referring Provider Active Sta rt: September 11, 2024 End: September 11, 2024 Dr. Ana Laura Mercado MD Attending Provider Active Start: September 11, 2024 End: September 11, 2024 Team Status: Inactive Member Role/Relationship Status Dates JHON SCOTT DO Primary Care Provider Active Start: October 05, 2024 End: October 05, 2024 Amada Black CNM Attending Provider Active S tart: October 05, 2024 End: October 05, 2024 Amada Black CNM Referring Provider Active S tart: October 05, 2024 End: October 05, 2024 Team Status: Active Member Role/Relationship Status Dates JHON SCOTT DO Primary Care Provider Active Start: October 05, 2024 Amada Black CNM Attending Provider Active S tart: October 05, 2024 Amada Black CNM Referring Provider Active S tart: October 05, 2024 Amada Black CNM Other Provider Active Start : October 05, 2024 Team Status: Inactive Member Role/Relationship Status Dates JHON SCOTT DO Primary Care Provider Active Start: October 10, 2024 End: October 10, 2024 JHON SCOTT DO Referring Provider Active Sta rt: October 10, 2024 End: October 10, 2024 Dr. Elissa Weldon DO Attending Provider Activ e Start: October 10, 2024 End: October 10, 2024 Team Status: Active Member Role/Relationship Status Dates JHON SCOTT DO Primary Care Provider Active Start: October 10, 2024 Dr. Ana Laura Mercado MD Attending Provider Active Start: October 10, 2024 Dr. Ana Laura Mercado MD Referring Provider Active Start: October 10, 2024 Team Status: Inactive Member Role/Relationship Status [...] June 19, 2024 Dr. Elissa Weldon DO Referring Provider Activ e Start: June 19, 2024 End: June 19, 2024 Team Status: Inactive Member Role/Relationship Status Dates JHON SCOTT DO Primary Care Provider Active Start: June 30, 2024 End: June 30, 2024 JHON SCOTT , DO Referring Provider Active Sta rt: June 30, 2024 End: June 30, 2024 Amada Black CNM Attending Provider Active S tart: June 30, 2024 End: June 30, 2024 Team Status: Inactive Member Role/Relationship Status Dates JHON SCOTT , DO Primary Care Provider Active Start: July 16, 2024 End: July 16, 2024 JHON SCOTT , DO Referring Provider Active Sta rt: July 16, 2024 End: July 16, 2024 Matt Ashley BAND HEAD SAW OPERATOR, BAND HEAD SAW OPERATOR-C Attending Provider Active Start: July 16, 2024 End: July 16, 2024 Team Status: Inactive Member Role/Relationship Status Dates JHON CSOTT , DO Primary Care Provider Active Start: July 21, 2024 End: July 21, 2024 JHON SCOTT , DO Referring Provider Active Sta rt: July 21, 2024 End: July 21, 2024 Amada Black CNM Attending Provider Active S tart: July 21, 2024 End: July 21, 2024 Team Status: Inactive Member Role/Relationship Status Dates JHON SCOTT , DO Primary Care Provider Active Start: August 11, 2024 End: August 11, 2024 JHON SCOTT , DO Referring Provider Active Sta rt: August 11, 2024 End: August 11, 2024 Matt Ashley BAND HEAD SAW OPERATOR, BAND HEAD SAW OPERATOR-C Attending Provider Active Start: August 11, 2024 End: August 11, 2024 Team Status: Inactive Member Role/Relationship Status Dates JHON SCOTT , DO Primary Care Provider Active Start: September 11, 2024 End: September 11, 2024 JHON SCOTT , DO Referring Provider Active Sta rt: September 11, 2024 End: September 11, 2024 Dr. Ana Laura Mercado MD Attending Provider Active Start: September 11, 2024 End: September 11, 2024 Team Status: Inactive Member Role/Relationship Status Dates JHON SCOTT DO Primary Care Provider Active Start: October 05, 2024 End: October 05, 2024 Amada Black CNM Attending Provider Active S tart: October 05, 2024 End: October 05, 2024 Amada Black CNM Referring Provider Active S tart: October 05, 2024 End: October 05, 2024 Team Status: Active Member Role/Relationship Status Dates JHON SCOTT DO Primary Care Provider Active Start: October 05, 2024 Amada Black CNM Attending Provider Active S tart: October 05, 2024 Amada Black CNM Referring Provider Active S tart: October 05, 2024 Amada Black CNM Other Provider Active Start : October 05, 2024 Team Status: Inactive Member Role/Relationship Status Dates JHON SCOTT DO Primary Care Provider Active Start: October 10, 2024 End: October 10, 2024 JHON SCOTT DO Referring Provider Active Sta rt: October 10, 2024 End: October 10, 2024 Dr. Elissa Weldon DO Attending Provider Activ e Start: October 10, 2024 End: October 10, 2024 Team Status: Inactive Member Role/Relationship Status Dates JHON SCOTT DO Primary Care Provider Active Start: October 10, 2024 End: October 10, 2024 Dr. Ana Laura Mercado MD Attending Provider Active Start: October 10, 2024 End: October 10, 2024 Dr. Ana Laura Mercado MD Referring Provider Active Start: October 10, 2024 End: October 10, 2024 Team Status: Inactive Member Role/Relationship Status Dates JHON SCOTT DO Primary Care Provider Active Start: June 30, 2024 End: June 30, 2024 JHON SCOTT DO Referring Provider Active Sta rt: June 30, 2024 End: June 30, 2024 Amada Black CNM Attending Provider Active S tart: June 30, 2024 End: June 30, 2024 Team Status: Inactive Member Role/Relationship Status Dates JHON SCOTT DO Primary Care Provider Active Start: July 16, 2024 End: July 16, 2024 JHON SCOTT DO Referring Provider Active Sta rt: July 16, 2024 End: July 16, 2024 Matt Ashley BAND HEAD SAW OPERATOR, BAND HEAD SAW OPERATOR-C Attending Provider Active Start: July 16, 2024 [...] Status: Inactive Member Role/Relationship Status Dates JHON SUEE , DO Primary Care Provider Active Start: August 11, 2024 End: August 11, 2024 JHONANN-MARIE SCOTT , DO Referring Provider Active Sta rt: August 11, 2024 End: August 11, 2024 Matt Ashley BAND HEAD SAW OPERATOR, BAND HEAD SAW OPERATOR-C Attending Provider Active Start: August 11, 2024 End: August 11, 2024 Team Status: Inactive Member Role/Relationship Status Dates JHON SCOTT , DO Primary Care Provider Active Start: September 11, 2024 End: September 11, 2024 JHON SCOTT , DO Referring Provider Active Sta rt: September 11, 2024 End: September 11, 2024 Dr. Ana Laura Mercado MD Attending Provider Active Start: September 11, 2024 End: September 11, 2024 Team Status: Inactive Member Role/Relationship Status Dates JHONANN-MARIE SCOTT , DO Primary Care Provider Active Start: October 05, 2024 End: October 05, 2024 Amada Black CNM Attending Provider Active S tart: October 05, 2024 End: October 05, 2024 Amada Black CNM Referring Provider Active S tart: October 05, 2024 End: October 05, 2024 Team Status: Active Member Role/Relationship Status Dates JHONANN-MARIE SCOTT DO Primary Care Provider Active Start: October 05, 2024 Amada Black CNM Attending Provider Active S tart: October 05, 2024 Amada Black CNM Referring Provider Active S tart: October 05, 2024 Amada Black CNM Other Provider Active Start : October 05, 2024 Team Status: Inactive Member Role/Relationship Status Dates JHONANN-MARIE SCOTT Primary Care Provider Active Start: October 10, 2024 End: October 10, 2024 JHON SCOTT DO Referring Provider Active Sta rt: October 10, 2024 End: October 10, 2024 Dr. Elissa Weldon DO Attending Provider Activ e Start: October 10, 2024 End: October 10, 2024 Team Status: Inactive Member Role/Relationship Status Dates JHONANN-MARIE SCOTT DO Primary Care Provider Active Start: October 10, 2024 End: October 10, 2024 Dr. Ana Laura Mercado MD Attending Provider Active Start: October 10, 2024 End: October 10, 2024 Dr. Ana Laura Mercado MD Referring Provider Active Start: October 10, 2024 End: October 10, 2024 Team Status: Inactive Member Role/Relationship Status Dates JHON SCOTT , DO Primary Care Provider Active Start: October 21, 2024 End: October 21, 2024 JHON SCOTT , DO Referring Provider Active Sta rt: October 21, 2024 End: October 21, 2024 Dr. Ana Laura Mercado MD Attending Provider Active Start: October 21, 2024 End: October 21, 2024 Team Status: Inactive Member Role/Relationship Status Dates JHON SCOTT , DO Primary Care Provider Active Start: July 16, 2024 End: July 16, 2024 JHON SCOTT , DO Referring Provider Active Sta rt: July 16, 2024 End: July 16, 2024 Matt Ashley BAND HEAD SAW OPERATOR, BAND HEAD SAW OPERATOR-C Attending Provider Active Start: July 16, 2024 End: July 16, 2024 Team Status: Inactive Member Role/Relationship Status Dates JHON SCOTT , DO Primary Care Provider Active Start: July 21, 2024 End: July 21, 2024 JHON SCOTT , DO Referring Provider Active Sta rt: July 21, 2024 End: July 21, 2024 Amada Black CNM Attending Provider Active S tart: July 21, 2024 End: July 21, 2024 Team Status: Inactive Member Role/Relationship Status Dates JHON SCOTT , DO Primary Care Provider Active Start: August 11, 2024 End: August 11, 2024 JHON SCOTT , DO Referring Provider Active Sta rt: August 11, 2024 End: August 11, 2024 Matt Ashley BAND HEAD SAW OPERATOR, BAND HEAD SAW OPERATOR-C Attending Provider Active Start: August 11, 2024 End: August 11, 2024 Team Status: Inactive Member Role/Relationship Status Dates JHON SCOTT , DO Primary Care Provider Active Start: September 11, 2024 End: September 11, 2024 JHON SCOTT , DO Referring Provider Active Sta rt: September 11, 2024 End: September 11, 2024 Dr. Ana Laura Mercado MD Attending Provider Active Start: September 11, 2024 End: September 11, 2024 Team Status: Inactive Member Role/Relationship Status Dates JHON SCOTT , DO Primary Care Provider Active Start: October 05, 2024 End: October 05, 2024 Amada Black CNM Attending Provider Active S tart: October 05, 2024 End: October 05, 2024 Amada Black CNM Referring Provider Active S tart: October 05, 2024 End: October 05, 2024 Team Status: Active Member Role/Relationship Status Dates JHON SCOTT DO Primary Care Provider Active Start: October 05, 2024 Amada Black CNM Attending Provider Active S tart: October 05, 2024 Amada Black CNM Referring Provider Active S tart: October 05, 2024 Amada Black CNM Other Provider Active Start : October 05, 2024 Team Status: Inactive Member Role/Relationship Status Dates JHON SCOTT , DO Primary Care Provider Active Start: October 10, 2024 End: October 10, 2024 JHON SUEE , DO Referring Provider Active Sta rt: October 10, 2024 End: October 10, 2024 Dr. Elissa Weldon DO Attending Provider Activ e Start: October 10, 2024 End: October 10, 2024 Team Status: Inactive Member Role/Relationship Status Dates JHON SCOTT , DO Primary Care Provider Active Start: October 10, 2024 End: October 10, 2024 Dr. Ana Laura Mercado MD Attending Provider Active Start: October 10, 2024 End: October 10, 2024 Dr. Ana Laura Mercado MD Referring Provider Active Start: October 10, 2024 End: October 10, 2024 Team Status: Inactive Member Role/Relationship Status Dates JHON SCOTT , DO Primary Care Provider Active Start: October 21, 2024 End: October 21, 2024 JHON SCOTT , DO Referring Provider Active Sta rt: October 21, 2024 End: October 21, 2024 Dr. Ana Laura Mercado MD Attending Provider Active Start: October 21, 2024 End: October 21, 2024 Team Status: Active Member Role/Relationship Status Dates JHONSVITLANA SCOTT DO Primary Care Provider Active Start: November 06, 2024 Dr. Ana Laura Mercado MD Attending Provider Active Start: November 06, 2024 Dr. Ana Laura Mercado MD Referring Provider Active Start: November 06, 2024 Team Status: Inactive Member Role/Relationship Status Dates JHON SCOTT , DO Primary Care Provider Active Start: November 07, 2024 End: November 07, 2024 JHON SCOTT , DO Referring Provider Active Sta rt: November 07, 2024 End: November 07, 2024 Dr. Ana Laura Mercado MD Attending Provider Active Start: November 07, 2024 End: November 07, 2024 Team Status: Inactive Member Role/Relationship Status Dates JHON SCOTT , DO Primary Care Provider Active Start: November 06, 2024 End: November 06, 2024 Dr. Ana Laura Mercado MD Attending Provider Active Start: November 06, 2024 End: November 06, 2024 Dr. Ana Laura Mercado MD Referring Provider Active Start: November 06, 2024 End: November 06, 2024 Team Status: Inactive Member Role/Relationship Status Dates JHONANN-MARIE SCOTT , DO Primary Care Provider Active Start: July 21, 2024 End: July 21, 2024 JHON SUEE , DO Referring Provider Active Sta rt: July 21, 2024 End: July 21, 2024 Amada Black CNM Attending Provider Active S tart: July 21, 2024 End: July 21, 2024 Team Status: Inactive Member Role/Relationship Status Dates JHON SCOTT , DO Primary Care Provider Active Start: August 11, 2024 End: August 11, 2024 JHON SCOTT , DO Referring Provider Active Sta rt: August 11, 2024 End: August 11, 2024 Matt Ashley BAND HEAD SAW OPERATOR, BAND HEAD SAW OPERATOR-C Attending Provider Active Start: August 11, 2024 End: August 11, 2024 Team Status: Inactive Member Role/Relationship Status Dates JHON SCOTT , DO Primary Care Provider Active Start: September 11, 2024 End: September 11, 2024 JHON SCOTT , DO Referring Provider Active Sta rt: September 11, 2024 End: September 11, 2024 Dr. Ana Laura Mercado MD Attending Provider Active Start: September 11, 2024 End: September 11, 2024 Team Status: Inactive Member Role/Relationship Status Dates JHON SCOTT , DO Primary Care Provider Active Start: October 05, 2024 End: October 05, 2024 Amada Black CNM Attending Provider Active S tart: October 05, 2024 End: October 05, 2024 Amada Black CNM Referring Provider Active S tart: October 05, 2024 End: October 05, 2024 Team Status: Active Member Role/Relationship Status Dates JHON SCOTT DO Primary Care Provider Active Start: October 05, 2024 Amada Black CNM Attending Provider Active S tart: October 05, 2024 Amada Black CNM Referring Provider Active S tart: October 05, 2024 Amada Black CNM Other Provider Active Start : October 05, 2024 Team Status: Inactive Member Role/Relationship Status Dates JHON SCOTT , DO Primary Care Provider Active Start: October 10, 2024 End: October 10, 2024 JHON CSOTT , DO Referring Provider Active Sta rt: October 10, 2024 End: October 10, 2024 Dr. Elissa Weldon DO Attending Provider Activ e Start: October 10, 2024 End: October 10, 2024 Team Status: Inactive Member Role/Relationship Status Dates JHON SCOTT DO Primary Care Provider Active Start: October 10, 2024 End: October 10, 2024 Dr. Ana Laura Mercado MD Attending Provider Active Start: October 10, 2024 End: October 10, 2024 Dr. Ana Laura Mercado MD Referring Provider Active Start: October 10, 2024 End: October 10, 2024 Team Status: Inactive Member Role/Relationship Status Dates JHON SCOTT DO Primary Care Provider Active Start: October 21, 2024 End: October 21, 2024 JHON SCOTT , DO Referring Provider Active Sta rt: October 21, 2024 End: October 21, 2024 Dr. Ana Laura Mercado MD Attending Provider Active Start: October 21, 2024 End: October 21, 2024 Team Status: Inactive Member Role/Relationship Status Dates JHON SCOTT DO Primary Care Provider Active Start: November 06, 2024 End: November 06, 2024 Dr. Ana Laura Mercado MD Attending Provider Active Start: November 06, 2024 End: November 06, 2024 Dr. Ana Laura Mercado MD Referring Provider Active Start: November 06, 2024 End: November 06, 2024 Team Status: Inactive Member Role/Relationship Status Dates JHON SCOTT DO Primary Care Provider Active Start: November 07, 2024 End: November 07, 2024 JHONSVITLANA SCOTT DO Referring Provider Active Sta rt: November 07, 2024 End: November 07, 2024 Dr. Ana Laura Mercado MD Attending Provider Active Start: November 07, 2024 End: November 07, 2024 Team Status: Inactive Member Role/Relationship Status Dates JHON SCOTT DO Primary Care Provider Active Start: November 18, 2024 End: November 18, 2024 JHON SCOTT DO Referring Provider Active Sta rt: November 18, 2024 End: November 18, 2024 Dr. Ana Laura Mercado MD Attending Provider Active Start: November 18, 2024 End: November 18, 2024 Scheduled Active and Recently Administ ered [...] BE BASED ON THE PRIMARY CLINICAL RECORDS. [employer] provides no warranty or guarantee of the accuracy or completeness of information in this document.
--- NOTE | 2024-12-03 18:39 | OB.TRI.PN ---
Progress Notes Date of Service: 12/03/24 Progress Note: Patient presents for triage evaluation secondary to heart rate variable deceleration FHT: 140 moderate variability reactive no decelerations category I tracing Universal: No contractions Assessment and plan: heart rate variable deceleration 36 weeks 8 out of 8 BPP reactive NST, reassuring maternal and status patient discharged to home to follow-up as scheduled. See problem list details for additional plan information. Charges/Coding Procedures Urinary/Genital [id number]: 75525-06 non-stress test Interp
== END 2024-12-03 19:58 | disposition home or self-care (01) ==
LOC: WPOUT 15:09 → WP 15:10
PROVIDERS: PCP Student in an Organized Health Care Education/Training Program; Referring Provider Obstetrics & Gynecology; Visit Provider Obstetrics & Gynecology
DX: O36.8330 Maternal care for abnormalities of the fetal heart rate or rhythm, third trimester, not applicable or unspecified (principal); Z3A.36 36 weeks gestation of pregnancy
CPT/HCPCS: 59025; 59050; 76816; 76819; 99221; G0378

== ENCOUNTER → 2024-12-03 | Outpatient (CLI) | payer BC, SELFPAY ==
--- OUTSIDE RECORDS SUMMARY | 2024-12-03 18:55 | XMS RPT_ITS | CCD ---
Author Organization [facility] CliniSyma Care Team Providers Care Manufacturing Finance Manager Name Role Phone Dillonn Merle L Unavailable [...] Care Provider Scott DO, Jhon A Unavailable [phone] SCOTT, JHON A Primary Care Unavailable SCOTT, [...] Referring Provider Wayne RAE, Amada Attending Provider [phone] SCOTT DO, JHON Primary Care Provider SCOTT DO, JHON Referring Provider [phone] Gabi BIOSTATISTICS MANAGER-C, Matt Attending Provider [place] BIOSTATISTICS MANAGER, Matt Attending Unavailable SCOTT, JHON Primary Care [...] Black Consulting Unavailable Vande Velde, Elissa [facility]ending [facility], No Primary Referring Unava ilable [...] [TOPIRAMATE] Drug Allergy 09-06-2017 Other (See Comments) [facility] Medications Current Medications Medication Drug Class(es) Dates Sig (Normalized) Sig (Original) [id number] 200 actuat albuterol 0.09 mg/actuat metered dose [...] DAILY. Quantity: 60 Refills: 1 Ordered: 23-Mar-2022 hJon Scott DO Start : 23-Mar-2022 Active take [...] every week ergocalciferol (Vitamin D-2) 1.25 MG (86387 UT) capsule Indications: Vitamin D deficiency Take [...] (one) tablet by mouth daily . Active 257-Uzkj-Hvzlw Ac-Dha 1 EACH combo pack (13 sources) Start: 12-28-2019 take 1 dose by mouth once daily 940-Aujp-Kkors Ac-Dha 1 EACH combo pack Active 1 [...] sunday Quantity: 30 Refills: 2 Ordered: 15-Mar-2022 Jhno Scott DO Start : 15-Mar-2022 Active iohexol [...] 12/31 Boy, PC [place], [place] PRR, , RCIHARD 12/31 Boy, Sung PC [place], [place] Other [...] Test Name Value Interpretation Reference Range Facility Member Services Representative Office Visit Reporton 11-18-2024 Member Services Representative Office Visit Report [facility]'s [address], [address] [place] [address] OFFICE VISIT Date of Service: 11/18/24 MR#: [id number] Acct: [id number] Name: RADHA BOONE Rep #: [id number] : 2000 Provider: Dr. Ana Laura briceno MD Age/Sex: 23/F Location: [facility] [place] Status: Signed Intake Vital Signs 10/10/24 10:15 11/07/24 10:57 11/18/24 13:55 Height 5 ft 7 in 5 ft 7 in 5 ft 7 in Weight: 291 lb 8 oz BMI 45.6 BP 119/85 H Intake Visit Reasons: 34 WK OB *CSECTION [employer] Dispatcher Required: No Is patient in pain?: No [...] allergies Depression Anxiety Surgical History Previous section [place] teeth extracted Family History Mother Thyroid disorder, Onset Age: 38 Hypothyroid Diabetes GDM with both pregnancies Grandmother Thyroid disorder, Onset Age: 55 Maternal-thyroid nodules benign Diabetes Maternal type 2 Grandmother Diabetes Paternal type 2 Social History adopted: No household members: spouse and children housing: house number of children: 1 current occupational status: unemployed current occupation: [employer] pets and animals: Yes (Avoid litterbox) pets [...] activity do you participate in: none janet/advent: Worship seatbelt use: always do you feel safe at home: Yes 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 Date Name GA/Weeks Outcome Route Bth Weight Infant Gen Labor Lgth Anesthesia Del Locatn Provider FOB 08/06/20 [place] 39 live - full term 8#1oz Female spinal [facility] Dr. Enedina Balbuena Delivery Date: 08/06/20 Last [...] -???-???-???-???-???- ???-???-???-???- (more content not included)... Normal [facility] Laboratory - Chemistry and C hemistry - challengeOrdered By: Ana Laura Mercado on 11-07-2024 Glucose Ql (U) Negative [facility] Laboratory - UrinalysisOrder ed By: Ana Laura Mercado on 11-07-2024 Protein Ql (U) Negative [facility] Member Services Representative Office Visit Reporton 11-07-2024 Member Services Representative Office Visit Report [facility]'s [address], [address] [place] [address] OFFICE VISIT Date of Service: 11/07/24 MR#: [id number] Acct: [id number] Name: RADHA BOONE Rep #: [id number] : 2000 Provider: Dr. Ana Laura briceno MD Age/Sex: 23/F Location: [facility] [place] Status: Signed Intake Vital Signs 10/10/24 10:15 10/21/24 09:23 11/07/24 10:57 Height 5 ft 7 in 5 ft 7 in 5 ft 7 in Weight: 282 lb 4 oz 290 lb BMI 44.1 45.4 BP 117/81 H 123/86 H Intake Visit Reasons: 32 WK OB *CSECTION/SM [employer] Dispatcher Required: No Is patient in pain?: No [...] allergies Depression Anxiety Surgical History Previous section [place] teeth extracted Family History Mother Thyroid disorder, Onset Age: 38 Hypothyroid Diabetes GDM with both pregnancies Grandmother Thyroid disorder, Onset Age: 55 Maternal-thyroid nodules benign Diabetes Maternal type 2 Grandmother Diabetes Paternal type 2 Social History adopted: No household members: spouse and children housing: house number of children: 1 current occupational status: unemployed current occupation: [employer] pets and animals: Yes (Avoid litterbox) pets [...] activity do you participate in: none janet/advent: Worship seatbelt use: always do you feel safe at home: Yes 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 Date Name GA/Weeks Outcome Route Bth Weight Infant Gen Labor Lgth Anesthesia Del Locatn Provider FOB 08/06/20 [place] 39 live - full term 8#1oz Female spinal [facility] Dr. Enedina Balbuena Delivery Date: 08/06/20 Last [...] lb) 123/ (more content not included)... Normal [facility] Gestational GTT 3HR 100gon 0 8- GEST GTT 100gm Normal [facility] Comment on above: Order Comment: Y Result [...] 1400 Performed By: #### L 500.4710 #### [facility] Laboratory [address] [place], [address] Quantitative serum or plasma 3 hour gestational glucose tolerance panelOrdered By: Ana Laura Mercado on 11-06-2024 Glucose tolerance 3 hours gestational panel See comment [facility] Comment on above: FASTING 92 Col: 0811/03 [...] Mercado on 10-21-2024 Glucose Ql (U) Negative [facility] Laboratory - UrinalysisOrder ed By: Ana Laura Mercado on 10-21-2024 Protein Ql (U) Negative [facility] Member Services Representative Office Visit Reporton 10-21-2024 Member Services Representative Office Visit Report [facility]'s [address], [address] [place] [address] OFFICE VISIT Date of Service: 10/21/24 MR#: [id number] Acct: [id number] Name: RADHA BOONE Rep #: [id number] : 2000 Provider: Dr. Ana Laura briceno MD Age/Sex: 23/F Location: [facility] [place] Status: Signed Intake Vital Signs 08/11/24 10:06 10/10/24 10:15 10/21/24 09:23 Height 5 ft 7 in 5 ft 7 in 5 ft 7 in Weight: 282 lb 4 oz BMI 44.1 BP 117/81 H Intake Visit Reasons: 30 WK OB *CSECTION [employer] Dispatcher Required: No Is patient in pain?: No [...] allergies Depression Anxiety Surgical History Previous section [place] teeth extracted Family History Mother Thyroid disorder, Onset Age: 38 Hypothyroid Diabetes GDM with both pregnancies Grandmother Thyroid disorder, Onset Age: 55 Maternal-thyroid nodules benign Diabetes Maternal type 2 Grandmother Diabetes Paternal type 2 Social History adopted: No household members: spouse and children housing: house number of children: 1 current occupational status: unemployed current occupation: [employer] pets and animals: Yes (Avoid litterbox) pets [...] activity do you participate in: none janet/advent: Worship seatbelt use: always do you feel safe at home: Yes 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 Date Name GA/Weeks Outcome Route Bth Weight Gen Labor Lgth Anesthesia Del Locatn Provider FOB 08/06/20 [place] 39 live - full term 8#1oz Female spinal [facility] Dr. Enedina Balbuena Delivery Date: 08/06/20 Last [...] days. no (more content not included)... Normal [facility] Absolute lymphocyte countOrd ered By: Ana Laura Mercado on 10-10-2024 Lymphocytes Auto (Unsp spec) [#/Vol] 1.88 10*3/uL 0.83-4.51 [facility] Absolute neutrophil countOrd ered By: Ana Laura Mercado on 10-10-2024 Neutrophils (Bld) [#/Vol] 6.1 10*3/uL 2.0-7.7 [facility] Automated lymphocyte count a s percentage of total leukocytesOrdered By: Ana Laura Mercado on 10-10-2024 Lymphocytes/100 WBC Auto (Unsp spec) 21.2 % 19-41 [facility] Basophil percentageOrdered B y: Ana Laura Mercado on 10-10-2024 Basophils/100 WBC (Bld) 0.5 % 0-1 [facility] CBC W/Diff, [place] Absolute Lymph 1.88 X10 3/uL Normal 0.83-4.51 [facility] Comment on above: Performed By: #### L 700.8000, L100.0100, L500.4050, B882-1 #### [facility] Laboratory [address] [place], [address] Absolute Neut 6.1 X10 3/uL Normal 2.0-7.7 [facility] Comment on above: Performed By: #### L 700.8000, L100.0100, L500.4050, B882-1 #### [facility] [address] [place], [address] Basophils/100 WBC (Bld) 0.5 % Normal 0-1 [facility] Comment on above: Performed By: #### L 700.8000, L100.0100, L500.4050, B882-1 #### [facility] [address] [place], [address] Eosinophils/100 WBC (Bld) 3.8 % Normal 0-5 [facility] Comment on above: Performed By: #### L 700.8000, L100.0100, L500.4050, B882-1 #### [facility] [address] [place], [address] Erythrocyte distribution width (RBC) [Ratio] 13.1 % Normal 11.6-14.6 [facility] Comment on above: Performed By: #### L 700.8000, L100.0100, L500.4050, B882-1 #### [facility] [address] [place], [address] Hematocrit (Bld) [Volume fraction] 35.0 % Low 37-47 [facility] Comment on above: Performed By: #### L 700.8000, L100.0100, L500.4050, B882-1 #### [facility] [address] [place], [address] Hemoglobin (Bld) [Mass/Vol] 11.9 g/dL Low 12.0-15.0 [facility] Comment on above: Performed By: #### L 700.8000, L100.0100, L500.4050, B882-1 #### [facility] [address] [place], [address] IG% 0.600 Normal 0.0-0.9 [facility] Comment on above: Result Comment: IG% - Immature Granulocytes (promyelocytes, myelocytes and metamyelocytes) > 1% indicates that a LEFT SHIFT is Present. Performed By: #### L 700.8000, L100.0100, L500.4050, B882-1 #### [facility] [address] [place], [address] Lymphocytes/100 WBC (Bld) 21.2 % Normal 19-41 [facility] Comment on above: Performed By: #### L 700.8000, L100.0100, L500.4050, B882-1 #### [facility] [address] [place], [address] MCH (RBC) [Entitic mass] 29.2 pg Normal 27.0-32.0 [facility] Comment on above: Performed By: #### L 700.8000, L100.0100, L500.4050, B882-1 #### [facility] [address] [place], [address] MCHC (RBC) [Mass/Vol] 34.0 g/dL Normal 32-36 [facility] Comment on above: Performed By: #### L 700.8000, L100.0100, L500.4050, B882-1 #### [facility] [address] [place], [address] MCV (RBC) [Entitic vol] 86.0 fL Normal 81-99 [facility] Comment on above: Performed By: #### L 700.8000, L100.0100, L500.4050, B882-1 #### [facility] [address] [place], [address] Monocytes/100 WBC (Bld) 4.7 % Normal 0-10 [facility] Comment on above: Performed By: #### L 700.8000, L100.0100, L500.4050, B882-1 #### [facility] [address] [place], [address] Neutrophils/100 WBC (Bld) 69.2 % Normal 47-70 [facility] Comment on above: Performed By: #### L 700.8000, L100.0100, L500.4050, B882-1 #### [facility] [address] [place], [address] Nucleated RBC (Bld) [#/Vol] 0 10*3/uL Normal 0-5 [facility] Comment on above: Performed By: #### L 700.8000, L100.0100, L500.4050, B882-1 #### [facility] [address] [place], [address] Platelet mean volume (Bld) [Entitic vol] 10.0 fL Normal 6.2-12.0 [facility] Comment on above: Performed By: #### L 700.8000, L100.0100, L500.4050, B882-1 #### [facility] [address] [place], [address] Platelets (Bld) [#/Vol] 241 10*3/uL Normal 150-450 [facility] Comment on above: Performed By: #### L 700.8000, L100.0100, L500.4050, B882-1 #### [facility] [address] [place], [address] RBC (Bld) [#/Vol] 4.07 10*6/uL Low 4.2-5.4 [facility] Comment on above: Performed By: #### L 700.8000, L100.0100, L500.4050, B882-1 #### [facility] [address] [place], [address] RDW SD 40.3 fl Normal 35.1-43.9 [facility] Comment on above: Performed By: #### L 700.8000, L100.0100, L500.4050, B882-1 #### [facility] [address] [place], [address] WBC (Bld) [#/Vol] 8.9 10*3/uL Normal 4.4-11.0 [facility] Comment on above: Performed By: #### L 700.8000, L100.0100, L500.4050, B882-1 #### [facility] [address] [place], [address] Eosinophil percentageOrdered By: Ana Laura Mercado on 10-10-2024 Eosinophils/100 WBC (Bld) 3.8 % 0-5 [facility] Erythrocyte distribution wid th ratioOrdered By: Ana Laura Mercado on 10-10-2024 Erythrocyte distribution width (RBC) [Ratio] 13.1 % 11.6-14.6 [facility] Erythrocyte distribution wid th standard deviationOrdered By: Ana Laura Mercado on 10-10-2024 Erythrocyte distribution width (RBC) [Ratio] 40.3 fl 35.1-43.9 [facility] Glucose Challenge Gest 1H 50 helena 10-10-2024 GLU GEST 50g 1H 166 mg/dL High 70-140 [facility] Comment on above: Performed By: #### L 700.8000, L100.0100, L500.4050, B882-1 #### [facility] [address] [place], [place], [address] Glucose measurement at 2 kristi rs post-dose gestational glucose tolerance testOrdered By: Ana Laura Mercado on 10-10-2024 Glucose [Mass/Vol] 166 mg/dL High 70-140 [facility] HIVon 10-10-2024 HIV Non-Reactive Normal Nonreactive [facility] Comment on above: Result Comment: Non- Reactive Reactive Repeatedly reactive samples must be confirmed according to CDC recommended confirmatory algorithms. The subresults for either HIVAG or AHIV can be used as an aid in the selection of the confirmation algorithm for reactive samples. Send out specimens with Reactive results to [facility] for confirmation. Order the HIV antibody detection and differentiation: lc#[id number] Performed By: #### L 700.8000, L100.0100, L500.4050, B882-1 #### [facility] [address] [place], [place], [address] Hematocrit Auto (Bld) [Volum e fraction]Ordered By: Ana Laura Mercado on 10-10-2024 Hematocrit (Bld) [Volume fraction] 35.0 % Low 37-47 [facility] Hemoglobin measurementOrdere d By: Ana Laura Mercado on 10-10-2024 Hemoglobin (Bld) [Mass/Vol] 11.9 g/dL Low 12.0-15.0 [facility] Immature granulocytes/100 WB C Auto (Bld)Ordered By: Ana Laura Mercado on 10-10-2024 Immature granulocytes/100 WBC (Bld) 0.600 % 0.0-0.9 [facility] Comment on above: IG% - Immature Granu locytes (promyelocytes, myelocytes and metamyelocytes) > 1% indicates that a LEFT SHIFT is Present. Laboratory - Chemistry and C hemistry - challengeOrdered By: Elissa Quintanilla on 10-10-2024 Glucose Ql (U) Negative [facility] Laboratory - UrinalysisOrder ed By: Elissa Quintanilla on 10-10-2024 Protein Ql (U) Negative [facility] MCV (mean corpuscular volume ) determinationOrdered By: Ana Laura Mercado on 10-10-2024 MCV (RBC) [Entitic vol] 86.0 fL 81-99 [facility] Mean corpuscular hemoglobin (MCH) determinationOrdered By: Ana Laura Mercado on 10-10-2024 MCH (RBC) [Entitic mass] 29.2 pg 27.0-32.0 [facility] Mean corpuscular hemoglobin concentration (MCHC) determinationOrdered By: Ana Laura Mercado on 10-10-2024 MCHC (RBC) [Mass/Vol] 34.0 g/dL 32-36 [facility] Mean platelet volume determi nationOrdered By: Ana Laura Mercado on 10-10-2024 Platelet mean volume (Bld) [Entitic vol] 10.0 fL 6.2-12.0 [facility] Monocyte percentageOrdered B y: Ana Laura Mercado on 10-10-2024 Monocytes/100 WBC (Bld) 4.7 % 0-10 [facility] Neutrophil percentageOrdered By: Ana Laura Mercado on 10-10-2024 Neutrophils/100 WBC (Bld) 69.2 % 47-70 [facility] No Panel InformationOrdered By: Ana Laura Mercado on 10-10-2024 HIV (1&2) Antibody Non-Reactive Nonreactive [facility] Comment on above: Non-ReactiveReactive Repeatedly reactive samples must be confirmed according to CDC recommended confirmatory algorithms. The subresults for either HIVAG or AHIV can be used as an aid in the selection of the confirmation algorithm for reactive samples.Send out specimens with Reactive results to [facility] for confirmation.Order the HIV antibody detection and differentiation: #[id number] Nucleated red blood cell per centageOrdered By: Ana Laura Mercado on 10-10-2024 Nucleated RBC/100 WBC (Bld) [Ratio] 0 % 0-5 [facility] Member Services Representative Office Visit Reporton 10-10-2024 Member Services Representative Office Visit Report [address], [address] [place] [address] OFFICE VISIT Date of Service: 10/10/24 MR#: [id number] Acct: [id number] Name: RADHA BOONE Rep #: [id number] : 2000 Provider: Dr. Elissa Arroyo DO Age/Sex: 23/F Location: [facility] [place] Status: Signed Intake Vital Signs 08/11/24 10:06 10/05/24 14:53 10/10/24 10:14 10/10/24 10:15 Height 5 ft 7 in 5 ft 7 in 5 ft 7 in 5 ft 7 in Weight: 280 lb 2 oz BMI 43.9 BP 107/69 Intake Visit Reasons: 28WK OB/GLUCOSE *CSECTION [employer] Dispatcher Required: No Is patient in pain?: No [...] allergies Depression Anxiety Surgical History Previous section [place] teeth extracted Family History Mother Thyroid disorder, Onset Age: 38 Hypothyroid Diabetes GDM with both pregnancies Grandmother Thyroid disorder, Onset Age: 55 Maternal-thyroid nodules benign Diabetes Maternal type 2 Grandmother Diabetes Paternal type 2 Social History adopted: No household members: spouse and children housing: house number of children: 1 current occupational status: unemployed current occupation: [employer] pets and animals: Yes (Avoid litterbox) pets [...] activity do you participate in: none janet/advent: Worship seatbelt use: always do you feel safe at home: Yes 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 Date Name GA/Weeks Outcome Route Bth Weight Gen Labor Lgth Anesthesia Del Locatn Provider FOB 08/06/20 [place] 39 live - full term 8#1oz Female spinal [facility] Dr. Enedina Balbuena Delivery Date: 08/06/20 Last [...] ???-???-???-???-???-? ??-???- (more content not included)... Normal [facility] Platelet countOrdered By: Telma Mercado on 10-10-2024 Platelets (d) [#/Vol] 241 10*3/uL 150-450 [facility] RBC Auto (d) [#/Vol]Ordere d By: Ana Laura Jess on 10-10-2024 RBC (Bld) [#/Vol] 4.07 10*6/uL Low 4.2-5.4 [facility] Syphilis Antibodieson 2024 Syphilis Abs Non-Reactive Normal Nonreactive [facility] Comment on above: Performed By: #### L 700.8000, L100.0100, L500.4050, B882-1 #### [facility] [address] [place], [place], [id number] White blood cell (WBC) count Ordered By: Ana Laura Mercado on 10-10-2024 WBC (Bld) [#/Vol] 8.9 10*3/uL 4.4-11.0 [facility] OB Limited With Biometricson 10-05-2024 OB Limited With Biometrics [facility] Imaging Services [address] [place], [place] [address] OB Limited With Biometrics MR#: [id number] Acct: [id number] Name: RADHA BOONE Rep #: [id number] : 2000 F 23 From: Annel Gaston PCP: JHON SCOTT DO Status: REG CLI Study: OB Limited With Biometrics Date of Exam: 10/05 Exam# [id number] Ordering Dr: Amada Black CNM PROCEDURE: OB [...] 12/26/24 Biometry results as above. Reading Location: [facility] CC: BUTCH Black; JHON SCOTT DO Teacher Industrial [employer]: Signed Normal [facility] OB Triage Progress Noteon OB Triage Progress Note [facility] Medical Records Department [address] [place] [address] OB Triage Progress Note 10/05/24 1715 MR#: [id number] Acct: [id number] Name: RADHA BOONE Rep #: [id number] : 2000 23 From: Amada Black CNM PCP: JHON SCOTT DO Status:REG CLI Y DOS: Location: [place] [id number] Progress Notes Date of Service: 10/05/24 Progress Note: Patient presents for triage evaluation secondary to vaginal spotting at 27 weeks. Had one episode of small clot in toilet earlier today. no further bleeding. no ctx. +fm. FHT: Moderate variability reactive no decelerations category I tracing [place]: none Contractions Assessment and plan: spec exam was negative for blood, closed cervix. US pending. Reactive NST, reassuring maternal and status patient discharged to home to follow-up this week in the office.. See problem list details for additional plan information. Charges/Coding Multi Select Codes Visit Charges Office Visit/Consults: 06017 OV L3 Est 20min Urinary/Genital Urinary/Genital CPT Codes: 09259-35 non-stress test Interp Assessment Plan (1) Vaginal [...] BUTCH Black; JHON SCOTT DO Signed Normal [facility] Laboratory - Chemistry and C hemistry - challengeOrdered By: Ana Laura Mercado on 09-11-2024 Glucose Ql (U) Negative [facility] Laboratory - UrinalysisOrder ed By: Ana Laura Mercado on 09-11-2024 Protein Ql (U) Trace [facility] Member Services Representative Office Visit Reporton 09-11-2024 Member Services Representative Office Visit Report [facility]'[address], [address] [place] [address] OFFICE VISIT Date of Service: 09/11/24 MR#: [id number] Acct: [id number] Name: RADHA BOONE Rep #: [id number] : 2000 Provider: Dr. Ana Laura briceno MD Age/Sex: 23/F Location: [facility] [place] Status: Signed with Addenda [...] allergies Depression Anxiety Surgical History Previous section [place] teeth extracted Family History Mother Thyroid disorder, Onset Age: 38 Hypothyroid Diabetes GDM with both pregnancies Grandmother Thyroid disorder, Onset Age: 55 Maternal-thyroid nodules benign Diabetes Maternal type 2 Grandmother Diabetes Paternal type 2 Social History adopted: No household members: spouse and children housing: house number of children: 1 current occupational status: unemployed current occupation: [employer] pets and animals: Yes (Avoid litterbox) pets [...] activity do you participate in: none janet/advent: Worship seatbelt use: always do you feel safe at home: Yes 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 Date Name GA/Weeks Outcome Route Bth Weight Infant Gen Labor L (more content not included)... Normal [facility] Laboratory - Chemistry and C hemistry - challengeOrdered By: Matt Ashley on 08-11-2024 Glucose Ql (U) Negative [facility] Laboratory - UrinalysisOrder ed By: Matt Ashley on 08-11-2024 Protein Ql (U) Negative [facility] Member Services Representative Office Visit Reporton 08-11-2024 Member Services Representative Office Visit Report [facility] [address], [address] [place] [address] OFFICE VISIT Date of Service: 08/11/24 MR#: [id number] Acct: [id number] Name: RADHA BOONE Rep #: [id number] : 2000 Provider: WINDY fuentes Age/Sex: 23/F Location: [facility] [place] Status: Signed Intake Vital Signs 07/16/24 10:23 07/21/24 15:23 08/11/24 10:06 Height 5 ft 7 in 5 ft 7 in 5 ft 7 in Weight: 262 lb 4 oz BMI 41.1 BP 112/75 Intake Visit Reasons: 20 wk ob [employer] Dispatcher Required: No Is patient in pain?: No [...] allergies Depression Anxiety Surgical History Previous section [place] teeth extracted Family History Mother Thyroid disorder, Onset Age: 38 Hypothyroid Diabetes GDM with both pregnancies Grandmother Thyroid disorder, Onset Age: 55 Maternal-thyroid nodules benign Diabetes Maternal type 2 Grandmother Diabetes Paternal type 2 Social History adopted: No household members: spouse and children housing: house number of children: 1 current occupational status: unemployed current occupation: [employer] pets and animals: Yes (Avoid litterbox) pets [...] activity do you participate in: none janet/advent: Worship seatbelt use: always do you feel safe at home: Yes 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 Date Name GA/Weeks Outcome Route Bth Weight Infant Gen Labor Lgth Anesthesia Del Locatn Provider FOB 08/06/20 Alyssa 39 live - full term 8#1oz Female spinal [facility] Dr. Enedina Balbuena Delivery Date: 08/06/20 Last [...] 123/82 Negative (more content not included)... Normal [facility] Laboratory - Chemistry and C hemistry - challengeOrdered By: Amada Black on 07-21-2024 Glucose Ql (U) Negative [facility] Laboratory - UrinalysisOrder ed By: Amada Black on 07-21-2024 Protein Ql (U) Negative [facility] Member Services Representative Office Visit Reporton 07-21-2024 Member Services Representative Office Visit Report [facility] [address], [address] [place] [address] OFFICE VISIT Date of Service: 07/21/24 MR#: [id number] Acct: [id number] Name: RADHA BOONE Rep #: [id number] : 2000 Provider: BUTCH Caldwell ams Age/Sex: 23/F Location: [facility] [place] Status: Signed Intake Vital Signs 07/16/24 10:23 07/21/24 15:23 Height 5 ft 7 in 5 ft 7 in Weight: 254 lb 8 oz BMI 39.8 BP 118/80 Intake Visit Reasons: FHT check Chief Complaint: FHT Check [employer] Dispatcher Required: No Is patient in pain?: No [...] allergies Depression Anxiety Surgical History Previous section [place] teeth extracted Family History Mother Thyroid disorder, Onset Age: 38 Hypothyroid Diabetes GDM with both pregnancies Grandmother Thyroid disorder, Onset Age: 55 Maternal-thyroid nodules benign Diabetes Maternal type 2 Grandmother Diabetes Paternal type 2 Social History adopted: No household members: spouse and children housing: house number of children: 1 current occupational status: unemployed current occupation: [employer] pets and animals: Yes (Avoid litterbox) pets [...] activity do you participate in: none janet/advent: Worship seatbelt use: always do you feel safe at home: Yes 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 Date Name GA/Weeks Outcome Route Bth Weight Gen Labor Lgth Anesthesia Del Locatn Provider FOB 08/06/20 Novaleigh 39 live - full term 8#1oz Female spinal [facility] Dr. Enedina Mezawell Delivery Date: 08/06/20 Last [...] ???-???-???-???-???-? ??-? (more content not included)... Normal [facility] Laboratory - Chemistry and C hemistry - challengeOrdered By: Matt Ashley on 07-16-2024 Glucose Ql (U) Negative [facility] Laboratory - UrinalysisOrder ed By: Matt Ashley on 07-16-2024 Protein Ql (U) Negative [facility] Member Services Representative Office Visit Reporton 07-16-2024 Member Services Representative Office Visit Report [facility] [address], [address] [place] [address] OFFICE VISIT Date of Service: 07/16/24 MR#: [id number] Acct: [id number] Name: RADHA BOONE Rep #: [id number] : 2000 Provider: WINDY fuentes Age/Sex: 23/F Location: [facility] [place] Status: Signed Intake Vital Signs 05/23/24 10:49 06/30/24 11:28 07/16/24 10:23 Height 5 ft 7 in 5 ft 7 in 5 ft 7 in Weight: 254 lb 4 oz BMI 39.8 BP 118/72 Intake Visit Reasons: 16 wk ob Chief Complaint: 16 Week OB [employer] Dispatcher Required: No Is patient in pain?: No [...] allergies Depression Anxiety Surgical History Previous section [place] teeth extracted Family History Mother Thyroid disorder, Onset Age: 38 Hypothyroid Diabetes GDM with both pregnancies Grandmother Thyroid disorder, Onset Age: 55 Maternal-thyroid nodules benign Diabetes Maternal type 2 Grandmother Diabetes Paternal type 2 Social History adopted: No household members: spouse and children housing: house number of children: 1 current occupational status: unemployed current occupation: [employer] pets and animals: Yes (Avoid litterbox) pets [...] activity do you participate in: none janet/advent: Worship seatbelt use: always do you feel safe at home: Yes 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 Date Name GA/Weeks Outcome Route Bth Weight Infant Gen Labor Lgth Anesthesia Del Locatn Provider FOB 08/06/20 Alyssa 39 live - full term 8#1oz Female spinal [facility] Dr. Enedina Balbuena Delivery Date: 08/06/20 Last [...] ???-???-???-???-???-? ??-???- (more content not included)... Normal [facility] Laboratory - Chemistry and C hemistry - challengeOrdered By: Amada Black on 06-30-2024 Glucose Ql (U) Negative [facility] Laboratory - UrinalysisOrder ed By: Amada Black on 06-30-2024 Protein Ql (U) Negative [facility] Member Services Representative Office Visit Reporton 06-30-2024 Member Services Representative Office Visit Report [facility] [address], [address] [place] [address] OFFICE VISIT Date of Service: 06/30/24 MR#: [id number] Acct: [id number] Name: RADHA BOONE Rep #: [id number] : 2000 Provider: BUTCH Caldwell ams Age/Sex: 23/F Location: [facility] [place] Status: Signed Intake Vital Signs 06/19/24 15:21 06/30/24 11:22 06/30/24 11:28 Height 5 ft 7 in 5 ft 7 in 5 ft 7 in Weight: 253 lb BMI 39.6 BP 128/83 H Intake Visit Reasons: Heartbeat check [employer] Dispatcher Required: No Is patient in pain?: No Allergies No Known Allergies Allergy (Verified 06/30/24 11:24) Last Menstrual Period: 03/26/24 Zika: Zika virus screening: Negative : No Have you fallen in the past year?: No PFSH PFSH Medical History Seasonal allergies Depression Anxiety Surgical History Previous section [place] teeth extracted Family History Mother Thyroid disorder, Onset Age: 38 Hypothyroid Diabetes GDM with both pregnancies Grandmother Thyroid disorder, Onset Age: 55 Maternal-thyroid nodules benign Diabetes Maternal type 2 Grandmother Diabetes Paternal type 2 Social History adopted: No household members: spouse and children housing: house number of children: 1 current occupational status: unemployed current occupation: [employer] pets and animals: Yes (Avoid litterbox) pets [...] activity do you participate in: none janet/advent: Worship seatbelt use: always do you feel safe at home: Yes 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 Date Name GA/Weeks Outcome Route Bth Weight Infant Gen Labor Lgth Anesthesia Del Locatn Provider FOB 08/06/20 Novaleigh 39 live - full term 8#1oz Female spinal [facility] Dr. Enedina Balbuena Delivery Date: 08/06/20 Last [...] 128/84 -???-???-???-??? (more content not included)... Normal [facility] Absolute lymphocyte countOrd ered By: Amada Black on 06-19-2024 Lymphocytes Auto (Unsp spec) [#/Vol] 2.12 10*3/uL 0.83-4.51 [facility] Absolute neutrophil countOrd ered By: Amada Black on 06-19-2024 Neutrophils (Bld) [#/Vol] 5.4 10*3/uL 2.0-7.7 [facility] Amphetamine detection with 1 000 ng/mL as cutoffOrdered By: Amada Black on 06-19-2024 Amphetamines Screen method >1000 ng/mL Ql (U) Negative < 200 ng/mL [facility] Amphetamines Screen method > 1000 ng/mL Ql (U)Ordered By: Amada Black on 06-19-2024 Amphetamines Ql (U) Negative <1000 ng/mL [facility] Urine Barbiturates Screen Negative < 200 ng/mL [facility] Automated lymphocyte count a s percentage of total leukocytesOrdered By: Amada Black on 06-19-2024 Lymphocytes/100 WBC Auto (Unsp spec) 25.2 % 19-41 [facility] Basophil percentageOrdered B y: Amada Black on 06-19-2024 Basophils/100 WBC (Bld) 0.4 % 0-1 [facility] CBC W/Diff, Automatedon 06-10 0-2024 Absolute Lymph 2.12 X10 3/uL Normal 0.83-4.51 [facility] Comment on above: Performed By: #### B TS, L3890.6006, L3890.6301, L509.8002, L100.0100, L509.4006, L501.9985, L3890.6102 #### [facility] Laboratory [address] [place], [address] Absolute Neut 5.4 X10 3/uL Normal 2.0-7.7 [facility] Comment on above: Performed By: #### B TS, L3890.6006, L3890.6301, L509.8002, L100.0100, L509.4006, L501.9985, L3890.6102 #### [facility] [address] [place], [address] Basophils/100 WBC (Bld) 0.4 % Normal 0-1 [facility] Comment on above: Performed By: #### B TS, L3890.6006, L3890.6301, L509.8002, L100.0100, L509.4006, L501.9985, L3890.6102 #### [facility] [address] [place], [address] Eosinophils/100 WBC (Bld) 1.5 % Normal 0-5 [facility] Comment on above: Performed By: #### B TS, L3890.6006, L3890.6301, L509.8002, L100.0100, L509.4006, L501.9985, L3890.6102 #### [facility] [address] [place], [address] Erythrocyte distribution width (RBC) [Ratio] 12.9 % Normal 11.6-14.6 [facility] Comment on above: Performed By: #### B TS, L3890.6006, L3890.6301, L509.8002, L100.0100, L509.4006, L501.9985, L3890.6102 #### [facility] [address] [place], [address] Hematocrit (Bld) [Volume fraction] 39.2 % Normal 37-47 [facility] Comment on above: Performed By: #### B TS, L3890.6006, L3890.6301, L509.8002, L100.0100, L509.4006, L501.9985, L3890.6102 #### [facility] [address] [place], [address] Hemoglobin (Bld) [Mass/Vol] 13.4 g/dL Normal 12.0-15.0 [facility] Comment on above: Performed By: #### B TS, L3890.6006, L3890.6301, L509.8002, L100.0100, L509.4006, L501.9985, L3890.6102 #### [facility] [address] [place], [address] IG% 0.400 Normal 0.0-0.9 [facility] Comment on above: Result Comment: IG% - Immature Granulocytes (promyelocytes, myelocytes and metamyelocytes) > 1% indicates that a LEFT SHIFT is Present. Performed By: #### B TS, L3890.6006, L3890.6301, L509.8002, L100.0100, L509.4006, L501.9985, L3890.6102 #### [facility] [address] [place], [address] Lymphocytes/100 WBC (Bld) 25.2 % Normal 19-41 [facility] Comment on above: Performed By: #### B TS, L3890.6006, L3890.6301, L509.8002, L100.0100, L509.4006, L501.9985, L3890.6102 #### [facility] [address] [place], [address] MCH (RBC) [Entitic mass] 29.1 pg Normal 27.0-32.0 [facility] Comment on above: Performed By: #### B TS, L3890.6006, L3890.6301, L509.8002, L100.0100, L509.4006, L501.9985, L3890.6102 #### [facility] [address] [place], [address] MCHC (RBC) [Mass/Vol] 34.2 g/dL Normal 32-36 [facility] Comment on above: Performed By: #### B TS, L3890.6006, L3890.6301, L509.8002, L100.0100, L509.4006, L501.9985, L3890.6102 #### [facility] [address] [place], [address] MCV (RBC) [Entitic vol] 85.0 fL Normal 81-99 [facility] Comment on above: Performed By: #### B TS, L3890.6006, L3890.6301, L509.8002, L100.0100, L509.4006, L501.9985, L3890.6102 #### [facility] [address] [place], [address] Monocytes/100 WBC (Bld) 7.8 % Normal 0-10 [facility] Comment on above: Performed By: #### B TS, L3890.6006, L3890.6301, L509.8002, L100.0100, L509.4006, L501.9985, L3890.6102 #### [facility] [address] [place], [address] Neutrophils/100 WBC (Bld) 64.7 % Normal 47-70 [facility] Comment on above: Performed By: #### B TS, L3890.6006, L3890.6301, L509.8002, L100.0100, L509.4006, L501.9985, L3890.6102 #### [facility] [address] [place], [address] Nucleated RBC (Bld) [#/Vol] 0 10*3/uL Normal 0-5 [facility] Comment on above: Performed By: #### B TS, L3890.6006, L3890.6301, L509.8002, L100.0100, L509.4006, L501.9985, L3890.6102 #### [facility] [address] [place], [address] Platelet mean volume (Bld) [Entitic vol] 9.4 fL Normal 6.2-12.0 [facility] Comment on above: Performed By: #### B TS, L3890.6006, L3890.6301, L509.8002, L100.0100, L509.4006, L501.9985, L3890.6102 #### [facility] [address] [place], [address] Platelets (Bld) [#/Vol] 266 10*3/uL Normal 150-450 [facility] Comment on above: Performed By: #### B TS, L3890.6006, L3890.6301, L509.8002, L100.0100, L509.4006, L501.9985, L3890.6102 #### [facility] [address] [place], [address] RBC (Bld) [#/Vol] 4.61 10*6/uL Normal 4.2-5.4 [facility] Comment on above: Performed By: #### B TS, L3890.6006, L3890.6301, L509.8002, L100.0100, L509.4006, L501.9985, L3890.6102 #### [facility] [address] [place], [address] RDW SD 39.6 fl Normal 35.1-43.9 [facility] Comment on above: Performed By: #### B TS, L3890.6006, L3890.6301, L509.8002, L100.0100, L509.4006, L501.9985, L3890.6102 #### [facility] [address] [place], [address] WBC (Bld) [#/Vol] 8.4 10*3/uL Normal 4.4-11.0 [facility] Comment on above: Performed By: #### B TS, L3890.6006, L3890.6301, L509.8002, L100.0100, L509.4006, L501.9985, L3890.6102 #### [facility] [address] [place], [address] Eosinophil percentageOrdered By: Amada Black on 06-19-2024 Eosinophils/100 WBC (Bld) 1.5 % 0-5 [facility] Erythrocyte distribution wid th (RBC) [Ratio]Ordered By: Amada Black on 06-19-2024 Erythrocyte distribution width (RBC) [Entitic vol] 39.6 fL 35.1-43.9 [facility] Erythrocyte distribution wid th ratioOrdered By: Amada Black on 06-19-2024 Erythrocyte distribution width (RBC) [Ratio] 12.9 % 11.6-14.6 [facility] Erythrocyte distribution wid th standard deviationOrdered By: Amada Black on 06-19-2024 Erythrocyte distribution width (RBC) [Ratio] 39.6 fl 35.1-43.9 [facility] HBV surface Ag Ql (S)Ordered By: Amada Black on 06-19-2024 Hepatitis B Surface Antigen Non-Reactive Nonreactive [facility] Comment on above: Reactive: Presumptiv e evidence of HBV. Repeatedly reactive samples must be confirmed using a neutralization test ([facility] HBsAg Confirmatory Test)Non-Reactive: HBsAg not detected; does not exclude the possibility of exposure to HBV HIVon 06-19-2024 HIV Non-Reactive Normal Nonreactive [facility] Comment on above: Result Comment: Non- Reactive Reactive Repeatedly reactive samples must be confirmed according to CDC recommended confirmatory algorithms. The subresults for either HIVAG or AHIV can be used as an aid in the selection of the confirmation algorithm for reactive samples. Send out specimens with Reactive results to [facility] for confirmation. Order the HIV antibody detection and differentiation: lc#[id number] Performed By: #### L 700.8000, L100.0100, L500.4050, B882-1 #### [facility] [address] [place], [place], [id number] Hematocrit Auto (Bld) [Volum e fraction]Ordered By: Amada Black on 06-19-2024 Hematocrit (Bld) [Volume fraction] 39.2 % 37-47 [facility] Hemoglobin A1con 06-19-2024 HbA1c (Bld) [Mass fraction] 5.0 % Low <=5.6 [facility] Comment on above: Performed By: #### L 700.8000, L100.0100, L500.4050, B882-1 #### [facility] [address] [place], [place], [id number] Hemoglobin A1c percentageOrd ered By: Amada Black on 06-19-2024 HbA1c (Bld) [Mass fraction] 5.0 % Low >5.7 [facility] Hemoglobin measurementOrdere d By: Amada Black on 06-19-2024 Hemoglobin (Bld) [Mass/Vol] 13.4 g/dL 12.0-15.0 [facility] Hepatitis C Antibodyon 06-19 Hepatitis C Ab Non-Reactive Normal Nonreactive [facility] Comment on above: Result Comment: Reac tive: Presumptive evidence of antibodies to HCV. Follow CDC recommendations for supplemental testing. Non-Reactive: Antibodies to HCV were not detected; does not exclude the possibility of exposure to HCV Reactive Results are presumptive evidence of antibodies to HCV. Follow CDC recommendations for supplemental testing. Order confirmation testing: HCV Quant by PCR testing - HCVPCR lc#[id number] Non Reactive: < 0.8 Equivocal: >/= 0.8 to < 1.0 Reactive: >/= 1.0 The CDC requires that a reactive/equivocal HCV antibody result be sent out for confirmation. HCV Quant by PCR testing. Performed By: #### L 700.8000, L100.0100, L500.4050, B882-1 #### [facility] [address] [place], [place], [address] Hepatitis C antibodyOrdered By: Amada Black on 06-19-2024 Hepatitis C Antibody Non-Reactive Nonreactive [facility] Comment on above: Reactive: Presumptiv e evidence of antibodies to HCV. Follow CDC recommendations for supplemental testing.Non-Reactive: Antibodies to HCV were not detected; does not exclude the possibility of exposure to HCVReactive Results are presumptive evidence of antibodies to HCV. Follow CDC recommendations for supplemental testing.Order confirmation testing: HCV Quant by PCR testing - HCVPCR lc#[id number] Non Reactive: < 0.8 Equivocal: >/= 0.8 to < 1.0 Reactive: >/= 1.0The CDC requires that a reactive/equivocal HCV antibody result be sent out for confirmation. HCV Quant by PCR testing. Immature granulocytes/100 WB C Auto (Bld)Ordered By: Amada Black on 06-19-2024 Immature granulocytes/100 WBC (Bld) 0.400 % 0.0-0.9 [facility] Comment on above: IG% - Immature Granu locytes (promyelocytes, myelocytes and metamyelocytes) > 1% indicates that a LEFT SHIFT is Present. L3890.6102on 06-19-2024 HEP B Surf Ag Non-Reactive Normal Nonreactive [facility] Comment on above: Result Comment: Reac tive: Presumptive evidence of HBV. Repeatedly reactive samples must be confirmed using a neutralization test ([employer] HBsAg Confirmatory Test) Non-Reactive: HBsAg not detected; does not exclude the possibility of exposure to HBV Performed By: #### L 700.8000, L100.0100, L500.4050, B882-1 #### [facility] [address] [place], [place], [address] L509.4006on 06-19-2024 Rubella IgG REAC Normal Nonreactive [facility] Comment on above: Result Comment: Anti body Result: Interpretation Non-Reactive: Non-Immune Reactive: Immune The following results were obtained with the [employer] Rubella IgG assay. Results from assays of other manufacturers cannot be used interchangeably. Performed By: #### L 700.8000, L100.0100, L500.4050, B882-1 #### [facility] [address] [place], [place], [id number] Laboratory - Microbiology an d Antimicrobial susceptibilityOrdered By: Amada Black on 06-19-2024 HBV surface Ag Ql (S) Non-Reactive Nonreactive [facility] Comment on above: Reactive: Presumptiv e evidence of HBV. Repeatedly reactive samples must be confirmed using a neutralization test ([employer] HBsAg Confirmatory Test)Non-Reactive: HBsAg not detected; does not exclude the possibility of exposure to HBV Lymphocytes Auto (Unsp spec) [#/Vol]Ordered By: Amada Black on 06-19-2024 Lymphocytes (Bld) [#/Vol] 2.12 10*3/uL 0.83-4.51 [facility] Lymphocytes/100 WBC Auto (Un sp spec)Ordered By: Amada Black on 06-19-2024 Lymphocytes/100 WBC (Bld) 25.2 % 19-41 [facility] MCV (mean corpuscular volume ) determinationOrdered By: Amada Black on 06-19-2024 MCV (RBC) [Entitic vol] 85.0 fL 81-99 [facility] Mean corpuscular hemoglobin (MCH) determinationOrdered By: Amada Black on 06-19-2024 MCH (RBC) [Entitic mass] 29.1 pg 27.0-32.0 [facility] Mean corpuscular hemoglobin concentration (MCHC) determinationOrdered By: Amada Black on 06-19-2024 MCHC (RBC) [Mass/Vol] 34.2 g/dL 32-36 [facility] Mean platelet volume determi nationOrdered By: Amada Black on 06-19-2024 Platelet mean volume (Bld) [Entitic vol] 9.4 fL 6.2-12.0 [facility] Methadone, urineOrdered By: Amada Black on 06-19-2024 Urine Methadone Screen Negative < 300 ng/mL [facility] Miscellaneous procedureOrder ed By: Elissa Quintanilla on 06-19-2024 Miscellaneous Test Comment SEE SCANNED REPORT [facility] Monocyte percentageOrdered B y: Amada Black on 06-19-2024 Monocytes/100 WBC (Bld) 7.8 % 0-10 [facility] NATERAon 06-19-2024 NATURA SEE SCANNED REPORT Normal [facility] Comment on above: Performed By: #### L 700.8000, L100.0100, L500.4050, B882-1 #### [facility] [address] [place], [place], [id number] Neutrophil percentageOrdered By: Amada Black on 06-19-2024 Neutrophils/100 WBC (Bld) 64.7 % 47-70 [facility] No Panel InformationOrdered By: Amada Black on 06-19-2024 Urine Buprenorphine Qualitative Negative < 200 ng/mL [facility] Urine Oxycodone Screen Negative < 100 ng/mL [facility] HIV (1&2) Antibody Non-Reactive Nonreactive [facility] Comment on above: Non-ReactiveReactive Repeatedly reactive samples must be confirmed according to CDC recommended confirmatory algorithms. The subresults for either HIVAG or AHIV can be used as an aid in the selection of the confirmation algorithm for reactive samples.Send out specimens with Reactive results to [facility] for confirmation.Order the HIV antibody detection and differentiation: #[id number] Nucleated red blood cell per centageOrdered By: Amada Black on 06-19-2024 Nucleated RBC/100 WBC (Bld) [Ratio] 0 % 0-5 [facility] Member Services Representative Office Visit Reporton 06-19-2024 Member Services Representative Office Visit Report [facility], [address] [place] [address] OFFICE VISIT Date of Service: 06/19/24 MR#: [id number] Acct: [id number] Name: RADHA BOONE Rep #: [id number] : 2000 Provider: Dr. 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 Normal [facility] Platelet countOrdered By: Thien Black on 06-19-2024 Platelets (Bld) [#/Vol] 266 10*3/uL 150-450 [facility] Quantitative urine opiates m easurementOrdered By: Amada Black on 06-19-2024 Opiates Ql (U) Negative < 300 ng/mL [facility] RBC Auto (Bld) [#/Vol]Ordere d By: Amada Black on 04-10-2025 RBC (Bld) [#/Vol] 4.61 10*6/uL 4.2-5.4 [facility] Rubella immune status determ ination by IgG antibody assayOrdered By: Amada Black on 06-19-2024 Rubella IgG Antibody REAC Nonreactive [facility] Comment on above: Antibody Result: Int erpretationNon-Reactive: Non-ImmuneReactive: ImmuneThe following results were obtained with the [employer] Rubella IgG assay. Results from assays of other manufacturers cannot be used interchangeably. Screening urine fentanyl rodrigue surementOrdered By: Amada Black on 06-19-2024 fentaNYL Screen Ql (U) Negative [facility] Syphilis Antibodieson 2024 Syphilis Abs Non-Reactive Normal Nonreactive [facility] Comment on above: Performed By: #### L 700.8000, L100.0100, L500.4050, B882-1 #### [facility] [address] [place], [place], [id number] T. pallidum abOrdered By: Thien Black on 06-19-2024 Syphilis Total Antibody Non-Reactive Nonreactiv e [facility] Type AND Screenon 06-19-2024 ABO and Rh group Nom (Bld) Blood group B Rh(D) positive Normal [facility] Comment on above: Order Comment: PN Performed By: #### B TS, L3890.6006, L3890.6301, L509.8002, L100.0100, L509.4006, L501.9985, L3890.6102 #### [facility] [address] [place], [address] Urine Drug Screen (VISTA)on 06-19-2024 AMPHETAMINES Negative Normal <1000 ng/mL [facility] Comment on above: Order Comment: UNK Performed By: #### L 505.5000 #### [facility] [address] [place], [address] BARBITIURATES Negative Normal < 200 ng/mL [facility] Comment on above: Order Comment: UNK Performed By: #### L 505.5000 #### [facility] [address] [facility] [address] BENZODIAZIPINE Negative Normal < 200 ng/mL [facility] Comment on above: Order Comment: UNK Performed By: #### L 505.5000 #### [facility] [address] [facility] [address] BUP Ur Drug Scr Negative Normal < 200 ng/mL [facility] Comment on above: Order Comment: UNK Performed By: #### L 505.5000 #### [facility] [address] [facility] [address] COCAINE Negative Normal < 300 ng/mL [facility] Comment on above: Order Comment: UNK Performed By: #### L 505.5000 #### [facility] [address] [place] [address] Fentanyl Negative Normal [facility] Comment on above: Order Comment: UNK Performed By: #### L 505.5000 #### [facility] [address] [place] [address] METHADONE Negative Normal < 300 ng/mL [facility] Comment on above: Order Comment: UNK Performed By: #### L 505.5000 #### [facility] [address] [place] [id number] OPIATES Negative Normal < 300 ng/mL [facility] Comment on above: Order Comment: UNK Performed By: #### L 505.5000 #### [facility] [address] [place] [id number] OXYCODONE Negative Normal < 100 ng/mL [facility] Comment on above: Order Comment: UNK Performed By: #### L 505.5000 #### [facility] [address] [place] [id number] PCP Negative Normal < 25 ng/mL [facility] Comment on above: Order Comment: UNK Performed By: #### L 505.5000 #### [facility] [address] [place], [place], [phone] THC Positive Normal < 50 ng/mL [facility] Comment on above: Order Comment: UNK Result Comment: If c onfirmation testing is needed, a separate order will be required to send out testing to the reference laboratory. Performed By: #### L 505.5000 #### [facility] [address] [place], [place], [id number] Urine benzodiazepine levelOr dered By: Amada Black on 06-19-2024 Benzodiazepines Ql (U) Negative < 200 ng/mL [facility] Urine cocaine levelOrdered B y: Amada Black on 06-19-2024 Cocaine Ql (U) Negative < 300 ng/mL [facility] Urine devkt-2-yhcwcwccdelows abinol (THC) measurementOrdered By: Amada Black on 06-19-2024 Cannabinoids Screen Ql (U) Positive < 50 ng/mL [facility] Comment on above: If confirmation test ing is needed, a separate order will be required to send out testing to the reference laboratory. Urine phencyclidine (PCP) de tectionOrdered By: Amada Black on 06-19-2024 Phencyclidine Ql (U) Negative < 25 ng/mL [facility] White blood cell (WBC) count Ordered By: Amada Black on 06-19-2024 WBC (Bld) [#/Vol] 8.4 10*3/uL 4.4-11.0 [facility] fentaNYL Screen Ql (U)Ordere d By: Amada Black on 06-19-2024 Urine Fentanyl Screen Negative [facility] Absolute lymphocyte countOrd ered By: Rubens Escudero on 06-13-2024 Lymphocytes Auto (Unsp spec) [#/Vol] 2.25 10*3/uL 0.83-4.51 [facility] Absolute neutrophil countOrd ered By: Rubens Escudero on 06-13-2024 Neutrophils (Bld) [#/Vol] 5.7 10*3/uL 2.0-7.7 [facility] Amorphous sediment detection in urine sediment by light microscopyOrdered By: Rubens Escudero on 06-13-2024 Amorphous sediment LM Ql (Urine sed) 1+ URATE [facility] Anion gap in Serum or Plasma Ordered By: Rubens Escudero on 06-13-2024 Anion gap [Moles/Vol] 12 mmol/L 5-15 [facility] Automated lymphocyte count a s percentage of total leukocytesOrdered By: Rubens Escudero on 06-13-2024 Lymphocytes/100 WBC Auto (Unsp spec) 25.9 % 19-41 [facility] BUN/creatinine ratioOrdered By: Rubens Escudero on 06-13-2024 Urea nitrogen/Creatinine [Mass ratio] 10.0 mg/mg 10- [facility] Basic Metabolic Profile (BMP )on 06-13-2024 BUN/CRE 10.0 RATIO Normal - [facility] Comment on above: Performed By: #### L 700.8000, L100.0100, L500.4050, B882-1 #### [facility] [address] [place], [address] Calcium [Mass/Vol] 9.2 mg/dL Normal 7.6-11.0 [facility] Comment on above: Performed By: #### L 700.8000, L100.0100, L500.4050, B882-1 #### [facility] [address] [place], [address] Chloride [Moles/Vol] 104 mmol/L Normal 98-108 [facility] Comment on above: Performed By: #### L 700.8000, L100.0100, L500.4050, B882-1 #### [facility] [address] [place], [address] CO2 [Moles/Vol] 21.8 mmol/L Normal 21.0-32.0 [facility] Comment on above: Performed By: #### L 700.8000, L100.0100, L500.4050, B882-1 #### [facility] [address] [place], [address] Creatinine [Mass/Vol] 0.58 mg/dL Low 0.70-1.20 [facility] Comment on above: Performed By: #### L 700.8000, L100.0100, L500.4050, B882-1 #### [facility] [address] [place], [address] ECRCL 194.36 ml/min Normal 50-250 [facility] Comment on above: Performed By: #### L 700.8000, L100.0100, L500.4050, B882-1 #### [facility] [address] [place], [address] GAP 12 Normal 5-15 [facility] Comment on above: Performed By: #### L 700.8000, L100.0100, L500.4050, B882-1 #### [facility] [address] [place], [address] GFR/1.73 sq M.predicted among non-blacks MDRD (S/P/Bld) [Vol rate/Area] 130 mL/min/{1.73_m2} Normal >60 [facility] Comment on above: Result Comment: mL/m in/1.73m2 CKD-EPI Creatinine Equation (2020) Performed By: #### L 700.8000, L100.0100, L500.4050, B882-1 #### [facility] [address] [place], [address] Glucose [Mass/Vol] 96 mg/dL Normal 70-99 [facility] Comment on above: Performed By: #### L 700.8000, L100.0100, L500.4050, B882-1 #### [facility] [address] [place], [address] Potassium [Moles/Vol] 3.9 mmol/L Normal 3.3-5.1 [facility] Comment on above: Performed By: #### L 700.8000, L100.0100, L500.4050, B882-1 #### [facility] [address] [place], [address] Sodium [Moles/Vol] 137 mmol/L Normal 133-145 [facility] Comment on above: Performed By: #### L 700.8000, L100.0100, L500.4050, B882-1 #### [facility] [address] [place], [address] Urea nitrogen [Mass/Vol] 6 mg/dL Normal 4-19 [facility] Comment on above: Performed By: #### L 700.8000, L100.0100, L500.4050, B882-1 #### [facility] [address] [place], [address] Basophil percentageOrdered B y: Rubens Escudero on 06-13-2024 Basophils/100 WBC (Bld) 0.3 % 0-1 [facility] Bilirubin Test strip Ql (U)O rdered By: Rubens Escudero on 06-13-2024 Bilirubin Ql (U) Negative Negative [facility] CBC W/Diff, Automatedon 04- Absolute Lymph 2.25 X10 3/uL Normal 0.83-4.51 [facility] Comment on above: Performed By: #### L 700.8000, L100.0100, L500.4050, B882-1 #### [facility] [address] [place], [address] Absolute Neut 5.7 X10 3/uL Normal 2.0-7.7 [facility] Comment on above: Performed By: #### L 700.8000, L100.0100, L500.4050, B882-1 #### [facility] [address] [place], [address] Basophils/100 WBC (Bld) 0.3 % Normal 0-1 [facility] Comment on above: Performed By: #### L 700.8000, L100.0100, L500.4050, B882-1 #### [facility] [address] [place], [address] Eosinophils/100 WBC (Bld) 2.0 % Normal 0-5 [facility] Comment on above: Performed By: #### L 700.8000, L100.0100, L500.4050, B882-1 #### [facility] [address] [place], [address] Erythrocyte distribution width (RBC) [Ratio] 13.1 % Normal 11.6-14.6 [facility] Comment on above: Performed By: #### L 700.8000, L100.0100, L500.4050, B882-1 #### [facility] [address] [place], [address] Hematocrit (Bld) [Volume fraction] 37.8 % Normal 37-47 [facility] Comment on above: Performed By: #### L 700.8000, L100.0100, L500.4050, B882-1 #### [facility] [address] [place], [address] Hemoglobin (Bld) [Mass/Vol] 13.3 g/dL Normal 12.0-15.0 [facility] Comment on above: Performed By: #### L 700.8000, L100.0100, L500.4050, B882-1 #### [facility] [address] [place], [address] IG% 0.200 Normal 0.0-0.9 [facility] Comment on above: Result Comment: IG% - Immature Granulocytes (promyelocytes, myelocytes and metamyelocytes) > 1% indicates that a LEFT SHIFT is Present. Performed By: #### L 700.8000, L100.0100, L500.4050, B882-1 #### [facility] [address] [place], [address] Lymphocytes/100 WBC (Bld) 25.9 % Normal 19-41 [facility] Comment on above: Performed By: #### L 700.8000, L100.0100, L500.4050, B882-1 #### [facility] [address] [place], [address] MCH (RBC) [Entitic mass] 29.5 pg Normal 27.0-32.0 [facility] Comment on above: Performed By: #### L 700.8000, L100.0100, L500.4050, B882-1 #### [facility] [address] [place], [address] MCHC (RBC) [Mass/Vol] 35.2 g/dL Normal 32-36 [facility] Comment on above: Performed By: #### L 700.8000, L100.0100, L500.4050, B882-1 #### [facility] [address] [place], [address] MCV (RBC) [Entitic vol] 83.8 fL Normal 81-99 [facility] Comment on above: Performed By: #### L 700.8000, L100.0100, L500.4050, B882-1 #### [facility] [address] [place], [address] Monocytes/100 WBC (Bld) 5.4 % Normal 0-10 [facility] Comment on above: Performed By: #### L 700.8000, L100.0100, L500.4050, B882-1 #### [facility] [address] [place], [address] Neutrophils/100 WBC (Bld) 66.2 % Normal 47-70 [facility] Comment on above: Performed By: #### L 700.8000, L100.0100, L500.4050, B882-1 #### [facility] [address] [place], [address] Nucleated RBC (Bld) [#/Vol] 0 10*3/uL Normal 0-5 [facility] Comment on above: Performed By: #### L 700.8000, L100.0100, L500.4050, B882-1 #### [facility] [address] [place], [address] Platelet mean volume (Bld) [Entitic vol] 9.2 fL Normal 6.2-12.0 [facility] Comment on above: Performed By: #### L 700.8000, L100.0100, L500.4050, B882-1 #### [facility] [address] [place], [address] Platelets (Bld) [#/Vol] 257 10*3/uL Normal 150-450 [facility] Comment on above: Performed By: #### L 700.8000, L100.0100, L500.4050, B882-1 #### [facility] [address] [place], [address] RBC (Bld) [#/Vol] 4.51 10*6/uL Normal 4.2-5.4 [facility] Comment on above: Performed By: #### L 700.8000, L100.0100, L500.4050, B882-1 #### [facility] [address] [place], [address] RDW SD 39.9 fl Normal 35.1-43.9 [facility] Comment on above: Performed By: #### L 700.8000, L100.0100, L500.4050, B882-1 #### [facility] [address] [place], [address] WBC (Bld) [#/Vol] 8.7 10*3/uL Normal 4.4-11.0 [facility] Comment on above: Performed By: #### L 700.8000, L100.0100, L500.4050, B882-1 #### [facility] [address] [place], [address] Carbon dioxide, total [Moles /volume] in Central venous bloodOrdered By: Rubens Escudero on 06-13-2024 CO2 [Moles/Vol] 21.8 mmol/L 21.0-32.0 [facility] Chloride assayOrdered By: Arturo Escudero on 06-13-2024 Chloride [Moles/Vol] 104 mmol/L 98-108 [facility] Emergency Department Summary on 06-13-2024 Emergency Department Summary [facility] Medical Records Department [address] [place] [address] Emergency Department Summary 06/13/24 MR#: [id number] Acct: [id number] Name: RADHA BOONE Rep #: [id number] : 2000 23 From: Rubens Escudero MD [...] changes in that no dysuria or hematuria. 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 Normal [facility] Eosinophil percentageOrdered By: Rubens Escudero on 06-13-2024 Eosinophils/100 WBC (Bld) 2.0 % 0-5 [facility] Epithelial cells.squamous LM Ql (Urine sed)Ordered By: Rubens Escudero on 06-13-2024 Epithelial cells.squamous LM.HPF (Urine sed) [#/Area] 0 /[HPF] 5-10 [facility] Erythrocyte distribution wid th (RBC) [Ratio]Ordered By: Rubens Escudero on 06-13-2024 Erythrocyte distribution width (RBC) [Entitic vol] 39.9 fL 35.1-43.9 [facility] Erythrocyte distribution wid th ratioOrdered By: Rubens Escudero on 06-13-2024 Erythrocyte distribution width (RBC) [Ratio] 13.1 % 11.6-14.6 [facility] Erythrocyte distribution wid th standard deviationOrdered By: Rubens Escudero on 06-13-2024 Erythrocyte distribution width (RBC) [Ratio] 39.9 fl 35.1-43.9 [facility] Estimation of creatinine ana aranceOrdered By: Rubens Escudero on 06-13-2024 Estimated Creatinine Clearance Calc 194.36 ml/min 50-250 [facility] GFR/1.73 sq M.predicted ab g non-blacks MDRD (S/P/Bld) [Vol rate/Area]Ordered By: Rubens Escudero on 06-13-2024 Estimated GFR (MDRD) Non-Af Amer 130 >60 [facility] Comment on above: mL/min/1.73m2 CKD-EP I Creatinine Equation (2020) Glomerular filtration rate ( GFR) estimation/1.73 sq m using serum, plasma, or whole bOrdered By: Rubens Escudero on 06-13-2024 GFR/1.73 sq M.predicted among non-blacks MDRD (S/P/Bld) [Vol rate/Area] 130 mL/min/{1.73_m2} >60 [facility] Comment on above: mL/min/1.73m2 CKD-EP I Creatinine Equation (2020) Glucose Ql (U)Ordered By: Arturo Escudero on 06-13-2024 Urine Glucose (UA) Normal mg/dl Normal [facility] Hematocrit Auto (Bld) [Volum e fraction]Ordered By: Rubens Escudero on 06-13-2024 Hematocrit (Bld) [Volume fraction] 37.8 % 37-47 [facility] Hemoglobin measurementOrdere d By: Rubens Escudero on 06-13-2024 Hemoglobin (Bld) [Mass/Vol] 13.3 g/dL 12.0-15.0 [facility] Center Immature granulocytes/100 WB C Auto (Bld)Ordered By: Rubens Escudero on 06-13-2024 Immature granulocytes/100 WBC (Bld) 0.200 % 0.0-0.9 [facility] Comment on above: IG% - Immature Granu locytes (promyelocytes, myelocytes and metamyelocytes) > 1% indicates that a LEFT SHIFT is Present. Ketones Test strip Ql (U)Ord ered By: Rubens Escudero on 06-13-2024 Ketones Ql (U) Negative Negative [facility] Kidney and Bladderon 025 Kidney and Bladder [facility] Imaging Services [address] [place] [id number] Kidney and Bladder MR#: [id number] Acct: [id number] Name: RADHA BOONE Rep #: [id number] : 2000 F 23 From: Hai Spear MD PCP: JHON SCOTT DO Status: REG ER Study: Kidney and Bladder Date of Exam: 06/13/24 Exam# [id number] Ordering Dr: Rubens Escudero MD PROCEDURE: KIDNEY [...] The study appears within limits. Reading Location: [facility] CC: Dr. Rubens Escudero MD; JHON SCOTT DO Teacher [employer]: Signed Normal [facility] Laboratory - Chemistry and C hemistry - challengeOrdered By: Amada Black on 06-13-2024 Glucose Ql (U) Negative [facility] Laboratory - UrinalysisOrder ed By: Amada Black on 06-13-2024 Protein Ql (U) Negative [facility] Lymphocytes Auto (Unsp spec) [#/Vol]Ordered By: Rubens Escudero on 06-13-2024 Lymphocytes (Bld) [#/Vol] 2.25 10*3/uL 0.83-4.51 [facility] Lymphocytes/100 WBC Auto (Un sp spec)Ordered By: Rubens Escudero on 06-13-2024 Lymphocytes/100 WBC (Bld) 25.9 % 19-41 [facility] MCV (mean corpuscular volume ) determinationOrdered By: Rubens Escudero on 06-13-2024 MCV (RBC) [Entitic vol] 83.8 fL 81-99 [facility] Mean corpuscular hemoglobin (MCH) determinationOrdered By: Rubens Escudero on 06-13-2024 MCH (RBC) [Entitic mass] 29.5 pg 27.0-32.0 [facility] Mean corpuscular hemoglobin concentration (MCHC) determinationOrdered By: Rubens Escudero on 06-13-2024 MCHC (RBC) [Mass/Vol] 35.2 g/dL 32-36 [facility] Mean platelet volume determi nationOrdered By: Rubens Escudero on 06-13-2024 Platelet mean volume (Bld) [Entitic vol] 9.2 fL 6.2-12.0 [facility] Microscopic analysis of urin e for red blood cells (RBC)Ordered By: Rubens Escudero on 06-13-2024 Microscopic analysis of urine for red blood cells (RBC) 0 SEEN /hpf 0-5 [facility] Urine RBC 0 SEEN /hpf 0-5 [facility] Monocyte percentageOrdered B y: Rubens Escudero on 06-13-2024 Monocytes/100 WBC (Bld) 5.4 % 0-10 [facility] Mucus LM Ql (Urine sed)Order ed By: Rubens Escudero on 06-13-2024 Mucus Ql (Urine sed) 0 SEEN /hpf [facility] Neutrophil percentageOrdered By: Rubens Escudero on 06-13-2024 Neutrophils/100 WBC (Bld) 66.2 % 47-70 [facility] Nitrite Test strip Ql (U)Ord ered By: Rubens Escudero on 06-13-2024 Nitrite Ql (U) Negative Negative [facility] Nucleated red blood cell per centageOrdered By: Rubens Escudero on 06-13-2024 Nucleated RBC/100 WBC (Bld) [Ratio] 0 % 0-5 [facility] Member Services Representative Office Visit Reporton 06-13-2024 Member Services Representative Office Visit Report [facility]'[address], [address] [place] [address] OFFICE VISIT Date of Service: 06/13/24 MR#: [id number] Acct: [id number] Name: RADHA BOONE Rep #: [id number] : 2000 Provider: BUTCH Caldwell ams Age/Sex: 23/F Location: [facility] [place] Status: Signed Intake Vital Signs 05/23/24 10:49 06/13/24 15:52 Height 5 ft 7 in 5 ft 7 in Weight: 253 lb BMI 39.6 BP 123/82 H Intake Visit Reasons: brown spotting and pain Chief Complaint: Brown Spotting and Pain [employer] Dispatcher Required: No Is patient in pain?: No [...] allergies Depression Anxiety Surgical History Previous section [place] teeth extracted Family History Mother Thyroid disorder, Onset Age: 38 Hypothyroid Diabetes GDM with both pregnancies Grandmother Thyroid disorder, Onset Age: 55 Maternal-thyroid nodules benign Diabetes Maternal type 2 Grandmother Diabetes Paternal type 2 Social History adopted: No household members: spouse and children housing: house number of children: 1 current occupational status: unemployed current occupation: [employer] pets and animals: Yes (Avoid litterbox) pets [...] activity do you participate in: none janet/ad[employer]: W[employer] seatbelt use: always do you feel safe at home: Yes 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 Date Name GA/Weeks Outcome Route Bth Weight Infant Gen Labor Lgth Anesthesia Del Locatn Provider FOB 08/06/20 Nov[place] 39 live - full term 8#1oz Female spinal [facility] Dr. Enedina Balbuena Delivery Date: 08/06/20 Last [...] Negative -???-?? (more content not included)... Normal [facility] Platelet countOrdered By: Arturo Escudero on 06-13-2024 Platelets (Bld) [#/Vol] 257 10*3/uL 150-450 [facility] Potassium (Unsp spec) [Mass/ Vol]Ordered By: Rubens Escudero on 06-13-2024 Potassium [Moles/Vol] 3.9 mmol/L 3.3-5.1 [facility] Potassium measurement (mass/ volume)Ordered By: Rubens Escudero on 06-13-2024 Potassium (Unsp spec) [Mass/Vol] 3.9 mmol/L 3.3-5.1 [facility] Protein Test strip Ql (U)Ord ered By: Rubens Escudero on 06-13-2024 Protein Ql (U) Negative Negative [facility] RBC Auto (Bld) [#/Vol]Ordere d By: Rubens Escudero on 06-13-2024 RBC (Bld) [#/Vol] 4.51 10*6/uL 4.2-5.4 [facility] Serum creatinine measurement (mass/volume)Ordered By: Rubens Escudero on 06-13-2024 Creatinine [Mass/Vol] 0.58 mg/dL Low 0.70-1.20 [facility] Serum glucose measurement (m ass/volume)Ordered By: Rubens Escudero on 06-13-2024 Glucose [Mass/Vol] 96 mg/dL 70-99 [facility] Serum or plasma calcium isabel urement (mass/volume)Ordered By: Rubens Escudero on 06-13-2024 Calcium [Mass/Vol] 9.2 mg/dL 7.6-11.0 [facility] Serum or plasma urea nitroge n measurement (mass/volume)Ordered By: Rubens Escudero on 06-13-2024 Urea nitrogen [Mass/Vol] 6 mg/dL 4-19 [facility] Sodium levelOrdered By: Deshawn Escudero on 06-13-2024 Sodium [Moles/Vol] 137 mmol/L 133-145 [facility] Squamous epithelial cells de tection in urine sediment by light microscopyOrdered By: Rubens Escudero on 06-13-2024 Epithelial cells.squamous LM Ql (Urine sed) 0-5 SEEN /hpf 5-10 [facility] Transvaginal w/Preg USon Transvaginal w/Preg US [facility] Imaging Services [address] [place], [place] [id number] Transvaginal w/Preg US MR#: [id number] Acct: [id number] Name: RADHA BOONE Rep #: [id number] : 2000 F 23 From: Hai Spear MD PCP: JHON SCOTT DO Status: REG ER Study: Transvaginal w/Preg US Date of Exam: 06/13/24 Exam# [id number] Ordering Dr: Rubens Escudero MD PROCEDURE: TRANSVAGINAL [...] Single live intrauterine as above. Reading Location: [facility] CC: Dr. Rubens Escudero MD; JHON SCOTT DO Teacher Industrial [employer]: Signed Normal [facility] Urinalysis, Completeon 06-13 AMORPHOUS 1+ URATE Normal [facility] Comment on above: Order Comment: CLEAN CATCH Performed By: #### L 700.8000, L100.0100, L500.4050, B882-1 #### [facility] Laboratory [address] [place], [place], [id number] EPI,SQUAMOUS 0-5 SEEN Normal 5-10 [facility] Comment on above: Order Comment: CLEAN CATCH Performed By: #### L 700.8000, L100.0100, L500.4050, B882-1 #### [facility] Laboratory [address] [place], [address] BACTERIA 0 SEEN Normal None Seen [facility] Comment on above: Order Comment: CLEAN CATCH Performed By: #### L 700.8000, L100.0100, L500.4050, B882-1 #### [facility] Laboratory [address] [place], [address] Mucus Ql (Urine sed) 0 SEEN Normal [facility] Comment on above: Order Comment: CLEAN CATCH Performed By: #### L 700.8000, L100.0100, L500.4050, B882-1 #### [facility] Laboratory [address] [place], [address] RBC 0 SEEN Normal 0-5 [facility] Comment on above: Order Comment: CLEAN CATCH Performed By: #### L 700.8000, L100.0100, L500.4050, B882-1 #### [facility] Laboratory [address] [place], [address] WBC 0 SEEN Normal 0-5 [facility] Comment on above: Order Comment: CLEAN CATCH Performed By: #### L 700.8000, L100.0100, L500.4050, B882-1 #### [facility] Laboratory [address] [place], [address] Urine blood detectionOrdered By: Rubens Escudero on 06-13-2024 Urine Occult Blood Negative Negative [facility] Urine clarityOrdered By: Roni Escudero on 06-13-2024 Clarity (U) Sl. Cloudy Clear [facility] Urine color determinationOrd ered By: Rubens Escudero on 06-13-2024 Color (U) Yellow Yellow [facility] Urine glucose detectionOrder ed By: Rubens Escudero on 06-13-2024 Glucose Ql (U) Normal mg/dl Normal [facility] Urine leukocyte esterase det ection by dipstickOrdered By: Rubens Escudero on 06-13-2024 Leukocyte esterase Test strip Ql (U) Negative Negative [facility] Urine pHOrdered By: Rubens Escudero on 06-13-2024 pH (U) 6.0 [pH] 5.0 - 8.0 [facility] Urine sediment bacteria coun t by microscopy (number/high power field)Ordered By: Rubens Escudero on 06-13-2024 Bacteria LM.HPF (Urine sed) [#/Area] 0 /[HPF] None Seen [facility] Urine specific gravity measu rementOrdered By: Rubens Escudero on 06-13-2024 Specific gravity (U) [Rel density] 1.020 1.002-1.030 [facility] Urine urobilinogen measureme ntOrdered By: Rubens Escudero on 06-13-2024 Urobilinogen Ql (U) Normal mg/dl Normal [facility] Urobilinogen Ql (U)Ordered B y: Rubens Escudero on 06-13-2024 Urine Urobilinogen Normal mg/dl Normal [facility] White blood cell (WBC) count Ordered By: Rubens Escudero on 06-13-2024 WBC (Bld) [#/Vol] 8.7 10*3/uL 4.4-11.0 [facility] White blood cell countOrdere d By: Rubens Escudero on 06-13-2024 Urine WBC 0 SEEN /hpf 0-5 [facility] White blood cell count 0 SEEN /hpf 0-5 [facility] Chlamydia/GC NANCY aptimaon CHLAMY,NUC ACID Negative Normal Negative [facility] Comment on above: Performed By: #### L 700.8000, L100.0100, L500.4050, B882-1 #### [facility] Laboratory [address] [place], [address] GC BY NUC ACID Negative Normal Negative [facility] Comment on above: Result Comment: Perf ormed at: =G - [facility] [address] [place] [id number] Wharf Tally Clerk: Alpa Pollock MD, Phone: [phone] Performed By: #### L 700.8000, L100.0100, L500.4050, B882-1 #### [facility] Laboratory [address] [place], [address] Urine Cultureon 05-25-2024 [facility] Mixed Gram Positive Organisms Marion Count 11,000-25,000 MIX[facility] Mixed contaminants. Submit a new specimen if indicated. Normal [facility] Comment on above: Performed By: #### L 700.8000, L100.0100, L500.4050, B882-1 #### [facility] Laboratory [address] [place], [address] C. trachomatis rRNA NANCY+prob e Ql (Unsp spec)Ordered By: Amada Black on 05-23-2024 Chlamydia DNA (NANCY) Negative Negative [facility] Chlamydia trachomatis rRNA d etection by probe and target amplification methodOrdered By: Amada Black on 05-23-2024 C. trachomatis rRNA NANCY+probe Ql (Unsp spec) Negative Negative [facility] Neisseria gonorrhoeae nuclei c acid detection by amplified probe techniqueOrdered By: Amada Black on 05-23-2024 N. gonorrhoeae DNA NANCY+probe Ql (Unsp spec) Negative Negative [facility] Comment on above: Performed at: =[address] [id number] Director: Alpa Pollock MD, Phone: [phone] Member Services Representative Office Visit Reporton 05-23-2024 Member Services Representative Office Visit Report [facility]'s [address], [address] [place] [address] OFFICE VISIT Date of Service: 05/23/24 MR#: [id number] Acct: [id number] Name: RADHA BOONE Rep #: [id number] : 2000 Provider: BUTCH Caldwell ams Age/Sex: 23/F Location: [facility] [place] Status: Signed Intake Vital [...] 11:14 by Amada Black CNM) Previous section [place] teeth extracted Family History Mother Thyroid disorder, Onset Age: 38 Hypothyroid Diabetes GDM with both pregnancies Grandmother Thyroid disorder, Onset Age: 55 Maternal-thyroid nodules benign Diabetes Maternal type 2 Grandmother Diabetes Paternal type 2 Social History adopted: No household members: spouse and children housing: house number of children: 1 service: No current occupational status: unemployed current occupation: [employer] pets and animals: Yes (Avoid litterbox) pets [...] activity do you participate in: none janet/advent: Worship seatbelt use: always do you feel safe at home: Yes 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 Date Name GA/Weeks Outcome Route Bth Weight Gen Labor Lgth Anesthesia Del Locatn Provider FOB 08/06/20 Nov[place] 39 live - full term 8#1oz Female spinal [facility] Dr. Enedina Balbuena Delivery Date: 08/06/20 Last [...] NIPT accep (more content not included)... Normal [facility] Urine cultureOrdered By: Demetrius Black on 05-23-2024 Bacteria identified Cx Nom (U) Positive Abnormal [facility] Urine Cultureon 05-21-2024 [facility] Mixed Gram Positive Organisms Marion Count 1000-10,000 [facility] Mixed contaminants. Submit a new specimen if indicated. Normal [facility] Comment on above: Performed By: #### L 700.8000, L100.0100, L500.4050, B882-1 #### [facility] Laboratory [address] [place], [address] Absolute lymphocyte countOrd ered By: Broyd Cleaning on 05-20-2024 Lymphocytes Auto (Unsp spec) [#/Vol] 2.18 10*3/uL 0.83-4.51 [facility] Absolute neutrophil countOrd ered By: Brody Cleaning on 05-20-2024 Neutrophils (Bld) [#/Vol] 4.2 10*3/uL 2.0-7.7 [facility] Anion gap in Serum or Plasma Ordered By: Brody Cleaning on 05-20-2024 Anion gap [Moles/Vol] 11 mmol/L 5-15 [facility] Automated lymphocyte count a s percentage of total leukocytesOrdered By: Brody Cleaning on 05-20-2024 Lymphocytes/100 WBC Auto (Unsp spec) 30.2 % 19-41 [facility] [id number] 05-20-2024 ABO and Rh group Nom (Bld) Blood group B Rh(D) positive Normal [facility] Comment on above: Performed By: #### L 700.8000, L100.0100, L500.4050, B882-1 #### [facility] Laboratory [address] [place], [address] BUN/creatinine ratioOrdered By: Brody Cleaning on 05-20-2024 Urea nitrogen/Creatinine [Mass ratio] 11.5 mg/mg 10-20 [facility] Basophil percentageOrdered B y: Brody Cleaning on 05-20-2024 Basophils/100 WBC (Bld) 0.4 % 0-1 [facility] Bilirubin Test strip Ql (U)O rdered By: Brody Cleaning on 05-20-2024 Bilirubin Ql (U) Negative Negative [facility] Bilirubin, totalOrdered By: Brody Cleaning on 05-20-2024 Bilirubin [Mass/Vol] 0.25 mg/dL Normal 0.00-1.30 [facility] Comment on above: Performed By: #### L 700.8000, L100.0100, L500.4050, B882-1 #### [facility] Laboratory [address] [place], [address] CBC W/Diff, Automatedon 05-10 Absolute Lymph 2.18 X10 3/uL Normal 0.83-4.51 [facility] Comment on above: Performed By: #### L 700.8000, L100.0100, L500.4050, B882-1 #### [facility] Laboratory [address] [place], [address] Absolute Neut 4.2 X10 3/uL Normal 2.0-7.7 [facility] Comment on above: Performed By: #### L 700.8000, L100.0100, L500.4050, B882-1 #### [facility] Laboratory [address] [place], [address] Basophils/100 WBC (Bld) 0.4 % Normal 0-1 [facility] Comment on above: Performed By: #### L 700.8000, L100.0100, L500.4050, B882-1 #### [facility] Laboratory [address] [place], [address] Eosinophils/100 WBC (Bld) 1.8 % Normal 0-5 [facility] Comment on above: Performed By: #### L 700.8000, L100.0100, L500.4050, B882-1 #### [facility] Laboratory [address] [place], [address] Erythrocyte distribution width (RBC) [Ratio] 12.6 % Normal 11.6-14.6 [facility] Comment on above: Performed By: #### L 700.8000, L100.0100, L500.4050, B882-1 #### [facility] Laboratory [address] [place], [address] Hematocrit (Bld) [Volume fraction] 39.8 % Normal 37-47 [facility] Comment on above: Performed By: #### L 700.8000, L100.0100, L500.4050, B882-1 #### [facility] Laboratory [address] [place], [address] Hemoglobin (Bld) [Mass/Vol] 13.6 g/dL Normal 12.0-15.0 [facility] Comment on above: Performed By: #### L 700.8000, L100.0100, L500.4050, B882-1 #### [facility] Laboratory [address] [place], [address] IG% 0.300 Normal 0.0-0.9 [facility] Comment on above: Result Comment: IG% - Immature Granulocytes (promyelocytes, myelocytes and metamyelocytes) > 1% indicates that a LEFT SHIFT is Present. Performed By: #### L 700.8000, L100.0100, L500.4050, B882-1 #### [facility] Laboratory [address] [place], [address] Lymphocytes/100 WBC (Bld) 30.2 % Normal 19-41 [facility] Comment on above: Performed By: #### L 700.8000, L100.0100, L500.4050, B882-1 #### [facility] Laboratory [address] [place], [address] MCH (RBC) [Entitic mass] 28.9 pg Normal 27.0-32.0 [facility] Comment on above: Performed By: #### L 700.8000, L100.0100, L500.4050, B882-1 #### [facility] Laboratory [address] [place], [address] MCHC (RBC) [Mass/Vol] 34.2 g/dL Normal 32-36 [facility] Comment on above: Performed By: #### L 700.8000, L100.0100, L500.4050, B882-1 #### [facility] Laboratory [address] [place], [address] MCV (RBC) [Entitic vol] 84.7 fL Normal 81-99 [facility] Comment on above: Performed By: #### L 700.8000, L100.0100, L500.4050, B882-1 #### [facility] Laboratory [address] [place], [address] Monocytes/100 WBC (Bld) 9.4 % Normal 0-10 [facility] Comment on above: Performed By: #### L 700.8000, L100.0100, L500.4050, B882-1 #### [facility] Laboratory [address] [place], [address] Neutrophils/100 WBC (Bld) 57.9 % Normal 47-70 [facility] Comment on above: Performed By: #### L 700.8000, L100.0100, L500.4050, B882-1 #### [facility] Laboratory [address] [place], [address] Nucleated RBC (Bld) [#/Vol] 0 10*3/uL Normal 0-5 [facility] Comment on above: Performed By: #### L 700.8000, L100.0100, L500.4050, B882-1 #### [facility] Laboratory [address] [place], [address] Platelet mean volume (Bld) [Entitic vol] 9.2 fL Normal 6.2-12.0 [facility] Comment on above: Performed By: #### L 700.8000, L100.0100, L500.4050, B882-1 #### [facility] Laboratory [address] [place], [address] Platelets (Bld) [#/Vol] 250 10*3/uL Normal 150-450 [facility] Comment on above: Performed By: #### L 700.8000, L100.0100, L500.4050, B882-1 #### [facility] Laboratory [address] [place], [address] RBC (Bld) [#/Vol] 4.70 10*6/uL Normal 4.2-5.4 [facility] Comment on above: Performed By: #### L 700.8000, L100.0100, L500.4050, B882-1 #### [facility] Laboratory [address] [place], [address] RDW SD 38.5 fl Normal 35.1-43.9 [facility] Comment on above: Performed By: #### L 700.8000, L100.0100, L500.4050, B882-1 #### [facility] Laboratory [address] [place], [address] WBC (Bld) [#/Vol] 7.2 10*3/uL Normal 4.4-11.0 [facility] Comment on above: Performed By: #### L 700.8000, L100.0100, L500.4050, B882-1 #### [facility] Laboratory [address] [place], [address] Carbon dioxide, total [Moles /volume] in Central venous bloodOrdered By: Brody Cleaning on 05-20-2024 CO2 [Moles/Vol] 22.8 mmol/L Normal 21.0-32.0 [facility] Comment on above: Performed By: #### L 700.8000, L100.0100, L500.4050, B882-1 #### [facility] Laboratory [address] [place], [address] Chloride assayOrdered By: Surjit Cleaning on 05-20-2024 Chloride [Moles/Vol] 104 mmol/L Normal 98-108 [facility] Comment on above: Performed By: #### L 700.8000, L100.0100, L500.4050, B882-1 #### [facility] Laboratory [address] [place], [address] Comprehensive Metabolic Prof ilon 05-20-2024 ALK PHOS 76 U/L Normal 35-104 [facility] Comment on above: Performed By: #### L 700.8000, L100.0100, L500.4050, B882-1 #### [facility] Laboratory [address] [place], [address] BUN/CRE 11.5 RATIO Normal 10-20 [facility] Comment on above: Performed By: #### L 700.8000, L100.0100, L500.4050, B882-1 #### [facility] Laboratory [address] [place], [address] ECRCL 191.87 ml/min Normal 50-250 [facility] Comment on above: Performed By: #### L 700.8000, L100.0100, L500.4050, B882-1 #### [facility] [address] [place], [address] GAP 11 Normal 5-15 [facility] Comment on above: Performed By: #### L 700.8000, L100.0100, L500.4050, B882-1 #### [facility] [address] [place], [address] T PROT 7.0 g/dL Normal 5.9-8.4 [facility] Comment on above: Performed By: #### L 700.8000, L100.0100, L500.4050, B882-1 #### [facility] [address] [place], [address] Comprehensive Metabolic Prof ilOrdered By: Brody Cleaning on 05-20-2024 AST [Catalytic activity/Vol] 17 U/L Normal <=31 [facility] Comment on above: Performed By: #### L 700.8000, L100.0100, L500.4050, B882-1 #### [facility] [address] [place], [address] Emergency Department Summary on 05-20-2024 Emergency Department Summary [facility] Medical Records Department [address] [place] [address] Emergency Department Summary 05/20/24 MR#: [id number] Acct: [id number] Name: RADHA BOONE Rep #: [id number] : 2000 23 From: Brody Cleaning DO [...] she does have appointment on Sunday with [facility] however states that she feels [...] Patient denies any abdominal pain or cramping. 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 Normal [facility] Eosinophil percentageOrdered By: Brody Cleaning on 05-20-2024 Eosinophils/100 WBC (Bld) 1.8 % 0-5 [facility] Epithelial cells.squamous LM Ql (Urine sed)Ordered By: Brody Cleaning on 05-20-2024 Epithelial cells.squamous LM.HPF (Urine sed) [#/Area] 0 /[HPF] 5-10 [facility] Erythrocyte distribution wid th ratioOrdered By: Brody Cleaning on 05-20-2024 Erythrocyte distribution width (RBC) [Ratio] 12.6 % 11.6-14.6 [facility] Erythrocyte distribution wid th standard deviationOrdered By: Brody Cleaning on 05-20-2024 Erythrocyte distribution width (RBC) [Entitic vol] 38.5 fL 35.1-43.9 [facility] Erythrocyte distribution width (RBC) [Ratio] 38.5 fl 35.1-43.9 [facility] Estimation of creatinine ana aranceOrdered By: Brody Cleaning on 05-20-2024 Estimated Creatinine Clearance Calc 191.87 ml/min 50-250 [facility] GFR/1.73 sq M.predicted ab g non-blacks MDRD (S/P/Bld) [Vol rate/Area]Ordered By: Brody Cleaning on 05-20-2024 Estimated GFR (MDRD) Non-Af Amer 129 >60 [facility] Comment on above: mL/min/1.73m2 CKD-EP I Creatinine Equation (2020) Glomerular filtration rate ( GFR) estimation/1.73 sq m using serum, plasma, or whole bOrdered By: Brody Cleaning on 05-20-2024 GFR/1.73 sq M.predicted among non-blacks MDRD (S/P/Bld) [Vol rate/Area] 129 mL/min/{1.73_m2} Normal >60 [facility] Comment on above: mL/min/1.73m2 CKD-EP I Creatinine Equation (2020) Result Comment: mL/m in/1.73m2 CKD-EPI Creatinine Equation (2020) Performed By: #### L 700.8000, L100.0100, L500.4050, B882-1 #### [facility] [address] [place], [address] Glucose Ql (U)Ordered By: Surjit Cleaning on 05-20-2024 Urine Glucose (UA) Normal mg/dl Normal [facility] HCG ( test) QlOrder ed By: Brody Cleaning on 05-20-2024 Human Chorionic Gonadotropin, Quant 24045 mIU/mL High <9 [facility] Comment on above: Gestational Age0.2-1 Week: 5-50 mIU/mL1-2 Weeks: 50-500 mIU/mL2-3 Weeks: 100-5000 mIU/mL3-4 Weeks: 500-10,000 mIU/mL4-5 Weeks:1000-50,000 mIU/mL5-6 Weeks: 10,000-100,000 mIU/mL6-8 Weeks: 15,000-200,000 mIU/mL2-3 Months:10,000-100,000 mIU/mL Hematocrit Auto (Bld) [Volum e fraction]Ordered By: Brody Cleaning on 05-20-2024 Hematocrit (Bld) [Volume fraction] 39.8 % 37-47 [facility] Hemoglobin measurementOrdere d By: Brody Cleaning on 05-20-2024 Hemoglobin (Bld) [Mass/Vol] 13.6 g/dL 12.0-15.0 [facility] Immature granulocytes/100 WB C Auto (Bld)Ordered By: Brody Cleaning on 05-20-2024 Immature granulocytes/100 WBC (Bld) 0.300 % 0.0-0.9 [facility] Comment on above: IG% - Immature Granu locytes (promyelocytes, myelocytes and metamyelocytes) > 1% indicates that a LEFT SHIFT is Present. Ketones Test strip Ql (U)Ord ered By: Brody Cleaning on 05-20-2024 Ketones Ql (U) Negative Negative [facility] Lymphocytes Auto (Unsp spec) [#/Vol]Ordered By: Brody Cleaning on 05-20-2024 Lymphocytes (Bld) [#/Vol] 2.18 10*3/uL 0.83-4.51 [facility] Lymphocytes/100 WBC Auto (Un sp spec)Ordered By: Brody Cleaning on 05-20-2024 Lymphocytes/100 WBC (Bld) 30.2 % 19-41 [facility] MCV (mean corpuscular volume ) determinationOrdered By: Brody Cleaning on 05-20-2024 MCV (RBC) [Entitic vol] 84.7 fL 81-99 [facility] Mean corpuscular hemoglobin (MCH) determinationOrdered By: Brody Cleaning on 05-20-2024 MCH (RBC) [Entitic mass] 28.9 pg 27.0-32.0 [facility] Mean corpuscular hemoglobin concentration (MCHC) determinationOrdered By: Brody Cleaning on 05-20-2024 MCHC (RBC) [Mass/Vol] 34.2 g/dL 32-36 [facility] Mean platelet volume determi nationOrdered By: Brody Cleaning on 05-20-2024 Platelet mean volume (Bld) [Entitic vol] 9.2 fL 6.2-12.0 [facility] Microscopic analysis of urin e for red blood cells (RBC)Ordered By: Brody Cleaning on 05-20-2024 Microscopic analysis of urine for red blood cells (RBC) 0-5 SEEN /hpf 0-5 [facility] Urine RBC 0-5 SEEN /hpf 0-5 [facility] Monocyte percentageOrdered B y: Brody Cleaning on 05-20-2024 Monocytes/100 WBC (Bld) 9.4 % 0-10 [facility] Mucus LM Ql (Urine sed)Order ed By: Brody Cleaning on 05-20-2024 Mucus Ql (Urine sed) 0 SEEN /hpf [facility] Neutrophil percentageOrdered By: Brody Cleaning on 05-20-2024 Neutrophils/100 WBC (Bld) 57.9 % 47-70 [facility] Nitrite Test strip Ql (U)Ord ered By: Brody Cleaning on 05-20-2024 Nitrite Ql (U) Negative Negative [facility] Nucleated red blood cell per centageOrdered By: Brody Cleaning on 05-20-2024 Nucleated RBC/100 WBC (Bld) [Ratio] 0 % 0-5 [facility] Platelet countOrdered By: Surjit Cleaning on 05-20-2024 Platelets (Bld) [#/Vol] 250 10*3/uL 150-450 [facility] Potassium measurement (mass/ volume)Ordered By: Brody Cleaning on 05-20-2024 Potassium (Unsp spec) [Mass/Vol] 3.7 mmol/L 3.3-5.1 [facility] Potassium [Moles/Vol] 3.7 mmol/L Normal 3.3-5.1 [facility] Comment on above: Performed By: #### L 700.8000, L100.0100, L500.4050, B882-1 #### [facility] [address] [place], [address] Protein Test strip Ql (U)Ord ered By: Brody Cleaning on 05-20-2024 Protein Ql (U) Negative Negative [facility] RBC Auto (Bld) [#/Vol]Ordere d By: Brody Cleaning on 05-20-2024 RBC (Bld) [#/Vol] 4.70 10*6/uL 4.2-5.4 [facility] [place] [facility] Serum creatinine measurement (mass/volume)Ordered By: Brody Cleaning on 05-20-2024 Creatinine [Mass/Vol] 0.59 mg/dL Low 0.70-1.20 [facility] Comment on above: Performed By: #### L 700.8000, L100.0100, L500.4050, B882-1 #### [facility] [address] [place], [address] Serum globulin measurementOr dered By: Brody Cleaning on 05-20-2024 Globulin (S) [Mass/Vol] 3.0 g/dL Normal 2.2-4.2 [facility] Comment on above: Performed By: #### L 700.8000, L100.0100, L500.4050, B882-1 #### [facility] [address] [place], [address] Serum glucose measurement (m ass/volume)Ordered By: Brody Cleaning on 05-20-2024 Glucose [Mass/Vol] 84 mg/dL Normal 70-99 [facility] Comment on above: Performed By: #### L 700.8000, L100.0100, L500.4050, B882-1 #### [facility] [address] [place], [place], [id number] Serum human chorionic gonado tropin detection for pregnancyOrdered By: Brody Cleaning on 05-20-2024 HCG ( test[place] [address] mIU/mL High <9 [facility] Comment on above: Gestational Age0.2-1 Week: 5-50 mIU/mL1-2 Weeks: 50-500 mIU/mL2-3 Weeks: 100-5000 mIU/mL3-4 Weeks: 500-10,000 mIU/mL4-5 Weeks:1000-50,000 mIU/mL5-6 Weeks: 10,000-100,000 mIU/mL6-8 Weeks: 15,000-200,000 mIU/mL2-3 Months:10,000-100,000 mIU/mL Serum or plasma alanine hurley otransferase (ALT) measurementOrdered By: Brody Cleaning on 05-20-2024 ALT [Catalytic activity/Vol] 17 U/L Normal <=34 [facility] Comment on above: Performed By: #### L 700.8000, L100.0100, L500.4050, B882-1 #### [facility] [address] [place], [place], [id number] Serum or plasma albumin isabel urement (mass/volume)Ordered By: Brody Cleaning on 05-20-2024 Albumin [Mass/Vol] 3.9 g/dL Normal 3.5-5.0 [facility] Comment on above: Performed By: #### L 700.8000, L100.0100, L500.4050, B882-1 #### [facility] [address] [place], [address] Serum or plasma albumin/glob ulin mass ratioOrdered By: Brody Cleaning on 05-20-2024 Albumin/Globulin [Mass ratio] 1.3 {ratio} Normal 0.9-2.4 [facility] Comment on above: Performed By: #### L 700.8000, L100.0100, L500.4050, B882-1 #### [facility] [address] [place], [address] Serum or plasma alkaline néstor sphatase measurementOrdered By: Brody Cleaning on 05-20-2024 ALP [Catalytic activity/Vol] 76 U/L 35-104 [facility] Serum or plasma calcium isabel urement (mass/volume)Ordered By: Brody Cleaning on 05-20-2024 Calcium [Mass/Vol] 9.2 mg/dL Normal 7.6-11.0 [facility] Comment on above: Performed By: #### L 700.8000, L100.0100, L500.4050, B882-1 #### [facility] [address] [place], [address] Serum or plasma urea nitroge n measurement (mass/volume)Ordered By: Brody Cleaning on 05-20-2024 Urea nitrogen [Mass/Vol] 7 mg/dL Normal 4-19 [facility] Comment on above: Performed By: #### L 700.8000, L100.0100, L500.4050, B882-1 #### [facility] [address] [place], [address] Sodium levelOrdered By: Gomez Cleaning on 05-20-2024 Sodium [Moles/Vol] 138 mmol/L Normal 133-145 [facility] Comment on above: Performed By: #### L 700.8000, L100.0100, L500.4050, B882-1 #### [facility] [address] [place], [address] Squamous epithelial cells de tection in urine sediment by light microscopyOrdered By: Brody Cleaning on 05-20-2024 Epithelial cells.squamous LM Ql (Urine sed) 0-5 SEEN /hpf 5-10 [facility] Total proteinOrdered By: Hubert Cleaning on 05-20-2024 Protein [Mass/Vol] 7.0 g/dL 5.9-8.4 [facility] Transvaginal w/Preg USon Transvaginal w/Preg US [facility] Imaging Services [address] [place], [place] [id number] Transvaginal w/Preg US MR#: [id number] Acct: [id number] Name: RADHA BOONE Rep #: [id number] : 2000 F 23 From: Ervin Webb MD PCP: JHON SCOTT DO Status: REG ER Study: Transvaginal w/Preg US Date of Exam: 05/20/24 Exam# [id number] Ordering Dr: Brody Cleaning DO PROCEDURE: TRANSVAGINAL [...] 25% of the gestational sac surface area. [place]-rump length: 17 mm, corresponding to 8 weeks [...] 5. Additional description as above. Reading Location: [id number] CC: Dr. Brody Cleaning DO; JHON SCOTT DO [employer]: Signed Normal [facility] Urinalysis, Completeon 05-20 EPI,SQUAMOUS 0-5 SEEN Normal 5-10 [facility] Comment on above: Order Comment: REAGAN CTOR TO SPECIFY Performed By: #### L 400.0001 #### [facility] [address] [place], [address] RBC 0-5 SEEN Normal 0-5 [facility] Comment on above: Order Comment: REAGAN CTOR TO SPECIFY Performed By: #### L 400.0001 #### [facility] [address] [place], [address] WBC 0-5 SEEN Normal 0-5 [facility] Comment on above: Order Comment: REAGAN CTOR TO SPECIFY Performed By: #### L 400.0001 #### [facility] [address] [place], [address] BACTERIA 0 SEEN Normal None Seen [facility] Comment on above: Order Comment: CLEAN CATCH Result Comment: dupl icate Performed By: #### L 700.8000, L100.0100, L500.4050, B882-1 #### [facility] [address] [place], [address] EPI,SQUAMOUS 0 SEEN Normal 5-10 [facility] Comment on above: Order Comment: CLEAN CATCH Result Comment: dupl icate Performed By: #### L 700.8000, L100.0100, L500.4050, B882-1 #### [facility] [address] [place], [address] Mucus Ql (Urine sed) 0 SEEN Normal [facility] Comment on above: Order Comment: CLEAN CATCH Result Comment: dupl icate Performed By: #### L 700.8000, L100.0100, L500.4050, B882-1 #### [facility] [address] [place], [address] WBC 0 SEEN Normal 0-5 [facility] Comment on above: Order Comment: CLEAN CATCH Result Comment: dupl icate Performed By: #### L 700.8000, L100.0100, L500.4050, B882-1 #### [facility] [address] [place], [address] BACTERIA 0 SEEN Normal None Seen [facility] Comment on above: Order Comment: COLLE CTOR TO SPECIFY Performed By: #### L 400.0001 #### [facility] [address] [place], [address] Mucus Ql (Urine sed) 0 SEEN Normal [facility] Comment on above: Order Comment: COLLE CTOR TO SPECIFY Performed By: #### L 400.0001 #### [facility] [address] [place], [address] BILIRUBIN URINE Normal Negative [facility] Comment on above: Order Comment: CLEAN CATCH Result Comment: dupl icate Performed By: #### L 700.8000, L100.0100, L500.4050, B882-1 #### [facility] [address] [place], [address] Clarity (U) Normal Clear [facility] Comment on above: Order Comment: CLEAN CATCH Result Comment: dupl icate Performed By: #### L 700.8000, L100.0100, L500.4050, B882-1 #### [facility] [address] [place], [address] Color (U) Normal Yellow [facility] Comment on above: Order Comment: CLEAN CATCH Result Comment: dupl icate Performed By: #### L 700.8000, L100.0100, L500.4050, B882-1 #### [facility] [address] [place], [address] GLUCOSE, UR Normal Normal [facility] Comment on above: Order Comment: CLEAN CATCH Result Comment: dupl icate Performed By: #### L 700.8000, L100.0100, L500.4050, B882-1 #### [facility] [address] [place], [address] KETONE UR Normal Negative [facility] Comment on above: Order Comment: CLEAN CATCH Result Comment: dupl icate Performed By: #### L 700.8000, L100.0100, L500.4050, B882-1 #### [facility] [address] [place], [address] LEUK ESTERASE Normal Negative [facility] Comment on above: Order Comment: CLEAN CATCH Result Comment: dupl icate Performed By: #### L 700.8000, L100.0100, L500.4050, B882-1 #### [facility] [address] [place], [address] Nitrite Ql (U) Normal Negative [facility] Comment on above: Order Comment: CLEAN CATCH Result Comment: dupl icate Performed By: #### L 700.8000, L100.0100, L500.4050, B882-1 #### [facility] [address] [place], [address] OCCULT BLOOD-UR Normal Negative [facility] Comment on above: Order Comment: CLEAN CATCH Result Comment: dupl icate Performed By: #### L 700.8000, L100.0100, L500.4050, B882-1 #### [facility] [address] [place], [address] pH UR Normal 5.0 - 8.0 [facility] Comment on above: Order Comment: CLEAN CATCH Result Comment: dupl icate Performed By: #### L 700.8000, L100.0100, L500.4050, B882-1 #### [facility] [address] [place], [address] PROT DIPSTX Normal Negative [facility] Comment on above: Order Comment: CLEAN CATCH Result Comment: dupl icate Performed By: #### L 700.8000, L100.0100, L500.4050, B882-1 #### [facility] [address] [place], [address] RBC Normal 0-5 [facility] Comment on above: Order Comment: CLEAN CATCH Result Comment: dupl icate Performed By: #### L 700.8000, L100.0100, L500.4050, B882-1 #### [facility] [address] [place], [address] SP.GR. DIPSTX Normal 1.002-1.030 [facility] Comment on above: Order Comment: CLEAN CATCH Result Comment: dupl icate Performed By: #### L 700.8000, L100.0100, L500.4050, B882-1 #### [facility] [address] [place], [address] UR Preservative Normal [facility] Comment on above: Order Comment: CLEAN CATCH Result Comment: dupl icate Performed By: #### L 700.8000, L100.0100, L500.4050, B882-1 #### [facility] [address] [place], [address] UROBILI Normal Normal [facility] Comment on above: Order Comment: CLEAN CATCH Result Comment: dupl icate Performed By: #### L 700.8000, L100.0100, L500.4050, B882-1 #### [facility] [address] [place], [address] Urine blood detectionOrdered By: Brody Cleaning on 05-20-2024 Urine Occult Blood 10 /ul High Negative [facility] Urine clarityOrdered By: Hubert Cleaning on 05-20-2024 Clarity (U) Clear Clear [facility] Urine color determinationOrd ered By: Brody Cleaning on 05-20-2024 Color (U) Straw Yellow [facility] Urine cultureOrdered By: Hubert Cleaning on 05-20-2024 Bacteria identified Cx Nom (U) Positive Abnormal [facility] Urine glucose detectionOrder ed By: Brody Cleaning on 05-20-2024 Glucose Ql (U) Normal mg/dl Normal [facility] Urine leukocyte esterase det ection by dipstickOrdered By: Brody Cleaning on 05-20-2024 Leukocyte esterase Test strip Ql (U) 25 /ul High Negative [facility] Urine pHOrdered By: Brody craft on 05-20-2024 pH (U) 7.0 [pH] 5.0 - 8.0 [facility] Urine sediment bacteria coun t by microscopy (number/high power field)Ordered By: Brody Cleaning on 05-20-2024 Bacteria LM.HPF (Urine sed) [#/Area] 0 /[HPF] None Seen [facility] Urine specific gravity measu rementOrdered By: Brody Cleaning on 05-20-2024 Specific gravity (U) [Rel density] 1.005 1.002-1.030 [facility] Urine urobilinogen measureme ntOrdered By: Brody Cleaning on 05-20-2024 Urobilinogen Ql (U) Normal mg/dl Normal [facility] Urobilinogen Ql (U)Ordered B y: Brody Clenaing on 05-20-2024 Urine Urobilinogen Normal mg/dl Normal [facility] White blood cell (WBC) count Ordered By: Brody Cleaning on 05-20-2024 WBC (Bld) [#/Vol] 7.2 10*3/uL 4.4-11.0 [facility] White blood cell countOrdere d By: Brody Cleaning on 05-20-2024 Urine WBC 0-5 SEEN /hpf 0-5 [facility] White blood cell count 0-5 SEEN /hpf 0-5 [facility] hCG Titer Quant., Serumon HCG QUANT. 29964 mIU/mL High <9 non-preg [facility] Comment on above: Result Comment: Gest ational Age 0.2-1 Week: 5-50 mIU/mL 1-2 Weeks: 50-500 mIU/mL 2-3 Weeks: 100-5000 mIU/mL 3-4 Weeks: 500-10,000 mIU/mL 4-5 Weeks:1000-50,000 mIU/mL 5-6 Weeks: 10,000-100,000 mIU/mL 6-8 Weeks: 15,000-200,000 mIU/mL 2-3 Months:10,000-100,000 mIU/mL Performed By: #### L 700.8000, L100.0100, L500.4050, B882-1 #### [facility] [address] [place], [address] POC , URINE - RALSo n 04-08-2024 Beta HCG ( test) Ql (U) Negative Normal Negative [facility] Comment on above: Order Comment: Negat emanuel: Dilute urine specimens, as indicated by a low specific gravity (<1.010) may not contain representitive levels of hCG. If is still suspected, a serum test or repeat urine test using a first morning urine specimen should be considered. Performed By: #### 4 [id number] #### LAB [address] [place], [place] [address] Luis Fernando Sandoval M.D. [id number] TISSUE EXAMon 04-08-2024 TISSUE EXAM Surgical Pathology Report Case: [id number] Authorizing Provider: Pal Booker, Collected: 04/08/2024 11:03 AM Ordering Location: [facility] Surgery Received: 04/08/2024 12:11 PM Center [...] 1 cassette(s). LM Gross examination performed at: [facility] - [address] [place] [address] Microscopic examination is performed. Normal [facility] Comment on above: Performed By: #### 4 [id number] #### [place] [address] Luis Fernando Sandoval M.D. [id number] Bacteria identifiedon 2023 Bacteria identified Cx Nom (U) Test: Urine Culture Specimen Source: Clean Catch/Voided Specimen Type: Urine Specimen Date: 03/06/20241729 Result Date: 03/07/20241937 Result Status: Final result Abnormal: No Resulting Lab: [facility] [address] [place] [address] CULTURE Clinically insignificant growth based on current clinical standards. [facility] Comment on above: Performed By: #### 6 30-4 #### [facility] [place] ([id number]) [facility] ([facility]) [address] [place] [address] CBC panel Auto (Bld)on 03-06 Erythrocyte distribution width (RBC) [Ratio] 12.4 % 11.5 - 14.5 % [facility] Hematocrit (Bld) [Volume fraction] 41.2 % 36.0 - 46.0 % [facility] Hemoglobin (Bld) [Mass/Vol] 13.8 g/dL 12.0 - 16.0 g/dL [facility] Interpretation and review of laboratory results Normal [facility] MCH (RBC) [Entitic mass] 28.6 pg 26.0 - 34.0 pg [facility] MCHC (RBC) [Mass/Vol] 33.5 g/dL 32.0 - 36.0 g/dL [facility] MCV (RBC) [Entitic vol] 85 fL 80 - 100 fL [facility] Nucleated RBC/100 WBC (Bld) [Ratio] 0 % [facility] Platelets (Bld) [#/Vol] 273 10*3/uL [facility] RBC (Bld) [#/Vol] 4.83 10*6/uL [facility] WBC (Bld) [#/Vol] 9.1 10*3/uL [facility] Erythrocyte distribution width (RBC) [Ratio] 12.4 % Normal 11.5-14.5 [facility] Comment on above: Performed By: #### 5 8410-2 #### JATINDER BURDICK ([id number]) [facility] ([facility]) [address] [place] [address] 79919 Hematocrit (Bld) [Volume fraction] 41.2 % Normal 36.0-46.0 [facility] Comment on above: Performed By: #### 5 8410-2 #### JATINDER BURDICK ([id number]) [facility] ([facility]) [address] [place] [address] 60091 Hemoglobin (Bld) [Mass/Vol] 13.8 g/dL Normal 12.0-16.0 [facility] Comment on above: Performed By: #### 5 8410-2 #### JATINDER BURDICK ([id number]) [facility] ([facility]) [address] [place] [address] 48405 MCH (RBC) [Entitic mass] 28.6 pg Normal 26.0-34.0 [facility] Comment on above: Performed By: #### 5 8410-2 #### JATINDER BURDICK ([id number]) [facility] ([facility]) [address] [place] [address] 65001 MCHC (RBC) [Mass/Vol] 33.5 g/dL Normal 32.0-36.0 [facility] Comment on above: Performed By: #### 5 8410-2 #### JATINDER BURDICK ([id number]) [facility] ([facility]) [address] [place] [address] 45888 MCV (RBC) [Entitic vol] 85 fL Normal 80-100 U [facility] Comment on above: Performed By: #### 5 8410-2 #### JATINDER BURDICK ([id number]) [facility] ([facility]) [address] [place] [address] 25423 Nucleated RBC/100 WBC (Bld) [Ratio] 0.0 /100 WBCs Normal 0.0-0.0 [facility] Comment on above: Performed By: #### 5 8410-2 #### JATINDER BURDICK ([id number]) [facility] ([facility]) [address] [place] [address] 94243 Platelets (Bld) [#/Vol] 273 x10*3/uL Normal 150-450 [facility] Comment on above: Performed By: #### 5 8410-2 #### JATINDER BURDICK ([id number]) [facility] ([facility]) [address] [place] [address] 96584 RBC (Bld) [#/Vol] 4.83 x10*6/uL Normal 4.00-5.20 [facility] Comment on above: Performed By: #### 5 8410-2 #### JATINDER BURDICK ([id number]) [facility] ([facility]) [address] [place] [address] 80098 WBC (Bld) [#/Vol] 9.1 x10*3/uL Normal 4.4-11.3 [facility] Comment on above: Performed By: #### 5 8410-2 #### TOBIAS GENNARO ([id number]) [facility] ([facility]) [address] [place] [address] CT ABDOMEN PELVIS W IV CONTR Aissatou 03-06-2024 CT ABDOMEN PELVIS W IV CONTRAST STUDY: CT Abdomen and Pelvis with IV Contrast; 03/06/2024, 6:24 PM INDICATION: Nausea, and emesis. COMPARISON: None Available. ACCESSION NUMBER(S): [id number] ORDERING CLINICIAN: ARIANNE TOWNSEND TECHNIQUE: CT of [...] Normal appendix. Signed by Esteban Jones DO [facility] CT Abdomen and Pelvis W cont rast Sanjay 03-06-2024 No acute findings. Normal appendix. Signed by Esteban Jones DO TELERADIOLOGY STUDY: CT Abdomen and Pelvis with IV Contrast; 03/06/2024, 6:24 PM INDICATION: Nausea, and emesis. COMPARISON: None Available. ACCESSION NUMBER(S): [id number] ORDERING CLINICIAN: ARIANNE TOWNSEND TECHNIQUE: CT of [...] and emesis. COMPARISON: None Available. ACCESSION NUMBER(S): [id number] ORDERING CLINICIAN: ARIANNE TOWNSEND TECHNIQUE: CT of [...] Normal appendix. Signed by Esteban Jones DO [facility] Work Phone: Radiology Study observation (narrative) [facility] Work Phone: CT Abdomen and Pelvis W cont rast IVOrdered By: Esteban Jones on 03-06-2024 [facility] Work Phone: Comprehensive metabolic 2000 panelon 03-06-2024 Albumin BCP dye [Mass/Vol] 4.3 g/dL 3.4 - 5.0 g/dL [facility] ALP [Catalytic activity/Vol] 76 U/L 33 - 110 U/L [facility] ALT With P-5'-P [Catalytic activity/Vol] 19 U/L 7 - 45 U/L [facility] Comment on above: Patients treated wit h Sulfasalazine may generate falsely decreased results for ALT. Anion gap [Moles/Vol] 9 mmol/L Low 10 - 2 0 mmol/L [facility] AST With P-5'-P [Catalytic activity/Vol] 17 U/L 9 - 39 U/L [facility] Bilirubin [Mass/Vol] 0.3 mg/dL 0.0 - 1 .2 mg/dL [facility] Calcium [Mass/Vol] 9 mg/dL 8.6 - 10. 3 mg/dL [facility] Chloride [Moles/Vol] 105 mmol/L 98 - 10 7 mmol/L [facility] CO2 [Moles/Vol] 28 mmol/L 21 - 32 mmol/L [facility] Creatinine [Mass/Vol] 0.64 mg/dL 0.50 - 1.05 mg/dL [facility] eGFR - PINF [facility] Comment on above: Calculations of katelyn mated GFR are performed using the 2020 CKD-EPI Study Refit equation without the race variable for the IDMS-Traceable creatinine methods. https://jasn.asnjournals.org/content//ASN.2020 354493 Glucose [Mass/Vol] 85 mg/dL 74 - 99 mg/dL [facility] Interpretation and review of laboratory results Abnormal [facility] Potassium [Moles/Vol] 4 mmol/L 3.5 - 5.3 mmol/L [facility] Protein [Mass/Vol] 7.4 g/dL 6.4 - 8.2 g/dL [facility] Sodium [Moles/Vol] 138 mmol/L 136 - 145 mmol/L [facility] Urea nitrogen [Mass/Vol] 12 mg/dL 6 - 23 mg/dL [facility] Albumin BCP dye [Mass/Vol] 4.3 g/dL Normal 3.4-5.0 [facility] Comment on above: Performed By: #### 2 4323-8 #### JATINDER BURDICK ([id number]) [facility] ([facility]) [address] [place] [address] 11801 ALP [Catalytic activity/Vol] 76 U/L Normal 33-110 [facility] Comment on above: Performed By: #### 2 4323-8 #### JATINDER BURDICK ([id number]) [facility] ([facility]) [address] [place] [address] 89887 ALT With P-5'-P [Catalytic activity/Vol] 19 U/L Normal 7-45 [facility] Comment on above: Result Comment: Cecilia ents treated with Sulfasalazine may generate falsely decreased results for ALT. Performed By: #### 2 4323-8 #### JATINDER BURDICK ([id number]) [facility] ([facility]) [address] [place] [address] 90451 Anion gap [Moles/Vol] 9 mmol/L Low 10-20 [facility] Comment on above: Performed By: #### 2 4323-8 #### JATINDER BURDICK ([id number]) [facility] ([facility]) [address] [place] [address] AST With P-5'-P [Catalytic activity/Vol] 17 U/L Normal 9-39 [facility] Comment on above: Performed By: #### 2 4323-8 #### JATINDER BURDICK ([id number]) [facility] ([facility]) [address] [place] [address] Bilirubin [Mass/Vol] 0.3 mg/dL Normal 0.0-1.2 [facility] Comment on above: Performed By: #### 2 4323-8 #### JATINDER BURDICK ([id number]) [facility] ([facility]) [address] [place] [address] 79955 Calcium [Mass/Vol] 9.0 mg/dL Normal 8.6-10.3 [facility] Comment on above: Performed By: #### 2 432-8 #### JATINDER BURDICK ([id number]) [facility] ([facility]) [address] [place] [address] 77751 Chloride [Moles/Vol] 105 mmol/L Normal 98-107 [facility] Comment on above: Performed By: #### 2 4323-8 #### JATINDER BURDICK ([id number]) [facility] ([facility]) [address] [place] [address] CO2 [Moles/Vol] 28 mmol/L Normal 21-32 [facility] Comment on above: Performed By: #### 2 4323-8 #### JATINDER BURDICK ([id number]) [facility] ([facility]) [facility] [place] [address] Creatinine [Mass/Vol] 0.64 mg/dL Normal 0.50-1.05 [facility] Comment on above: Performed By: #### 2 4323-8 #### JATINDER BURDICK ([id number]) [facility] ([facility]) [address] [place] [address] 40694 GFR/1.73 sq M.predicted MDRD (S/P/Bld) [Vol rate/Area] mL/min/{1.73_m2} Normal >60 [facility] Comment on above: Result Comment: Calc ulations of estimated GFR are performed using the 2020 CKD-EPI Study Refit equation without the race variable for the IDMS-Traceable creatinine methods. https://jasn.asnjournals.org/content/early//ASN.2020 710701 Performed By: #### 2 4323-8 #### JATINDER BURDICK ([id number]) [facility] ([facility]) [address] [place] [address] 90075 Glucose [Mass/Vol] 85 mg/dL Normal 74-99 [facility] Comment on above: Performed By: #### 2 4323-8 #### JATINDER BURDICK ([id number]) [facility] ([facility]) [address] [place] [address] 13378 Potassium [Moles/Vol] 4.0 mmol/L Normal 3.5-5.3 [facility] Comment on above: Performed By: #### 2 4323-8 #### JATINDER BURDICK ([id number]) [facility] ([facility]) [address] [place] [address] 68285 Protein [Mass/Vol] 7.4 g/dL Normal 6.4-8.2 [facility] Comment on above: Performed By: #### 2 4323-8 #### JATINDER BURDICK ([id number]) [facility] ([facility]) [address] [place] [address] 43198 Sodium [Moles/Vol] 138 mmol/L Normal 136-145 [facility] Comment on above: Performed By: #### 2 4323-8 #### JATINDER BURDICK ([id number]) [facility] ([facility]) [address] [place] [address] 94092 Urea nitrogen [Mass/Vol] 12 mg/dL Normal 6-23 [facility] Comment on above: Performed By: #### 2 4323-8 #### JATINDER BURDICK ([id number]) [facility] ([facility]) [address] [place] [address] 71404 HCG ( test) IA.rapi d Ql (U)Ordered By: Kanu Edward on 03-06-2024 HCG ( test) Ql (U) Negative NEGATIVE [facility] Interpretation and review of laboratory results Normal [facility] HCG ( test) IA.rapi d Ql (U)on 03-06-2024 HCG ( test) Ql (U) Negative Normal NEGATIVE [facility] Comment on above: Performed By: #### 8 0384-1 #### JATINDER BURDICK ([id number]) [facility] ([facility]) [address] [place] [address] Lipaseon 03-06-2024 Lipase [Catalytic activity/Vol] 46 U/L U/L [facility] Lipase [Catalytic activity/V ol]on 03-06-2024 Interpretation and review of laboratory results Normal [facility] Venipuncture immediately after or during the administration of Metamizole may lead to falsely low results. Testing should be performed immediately prior to Metamizole dosing. [facility] No Panel Informationon 03-06 Extra Tube Hold for add-ons. [facility] Comment on above: Auto resulted. [facility] Interpretation and review of laboratory results Abnormal [facility] Triacylglycerol lipaseon Lipase [Catalytic activity/Vol] 46 U/L Normal [facility] Comment on above: Order Comment: Venip uncture immediately after or during the administration of Metamizole may lead to falsely low results. Testing should be performed immediately prior to Metamizole dosing. Performed By: #### 3 040-3 #### JATINDER BURDICK ([id number]) [facility] ([facility]) [address] [place] [address] Urinalysis complete W Reflex Culture panel (U)on 03-06-2024 Appearance (U) Clear Clear [facility] Bilirubin (U) [Mass/Vol] Negative NEGATIVE [facility] Color (U) Light-Yellow Light-Yellow , Yellow, Dark-Yellow [facility] Glucose Auto test strip (U) [Mass/Vol] Normal Normal mg/dL [facility] Ketones (U) [Mass/Vol] Negative NEGAT EMANUEL mg/dL [facility] Leukocyte esterase Auto test strip Ql (U) 75 Clarisa/ L Abnormal NEGATIVE [facility] Nitrite Auto test strip Ql (U) Negative NEGATIVE [facility] pH (U) 6 [pH] 5.0, 5.5, 6.0, 6.5, 7.0, 7.5, 8.0 [facility] Protein (U) [Mass/Vol] Negative NEGAT EMANUEL, 10 (TRACE), 20 (TRACE) mg/dL [facility] RBC (U) [#/Vol] 0.2 (2+) Abnormal NEGATIVE [facility] Specific gravity (U) [Rel density] 1.021 1.005 - 1.035 [facility] Urobilinogen (U) [Mass/Vol] Normal Normal mg/dL [facility] Appearance (U) Clear Normal Clear [facility] Comment on above: Performed By: #### 5 8077-9 #### JATINDER BURDICK ([id number]) [facility] ([facility]) [address] [place] [address] Bilirubin (U) [Mass/Vol] Negative Normal NEGATIVE [facility] Comment on above: Performed By: #### 5 8077-9 #### JATINDER BURDICK ([id number]) [facility] ([facility]) [address] [place] [address] 10494 Color (U) Light-Yellow Normal Light-Yellow , Yellow, Dark-Yellow [facility] Comment on above: Performed By: #### 5 8077-9 #### JATINDER BURDICK ([id number]) [facility] ([facility]) [address] [place] [address] 96390 Glucose Auto test strip (U) [Mass/Vol] Normal Normal Normal [facility] Comment on above: Performed By: #### 5 8077-9 #### JATINDER BURDICK ([id number]) [facility] ([facility]) [address] [place] [address] 05552 Ketones (U) [Mass/Vol] Negative Normal [facility]GATIVE [facility] on above: Performed By: #### 5 8077-9 #### JATINDER BURDICK ([id number]) [facility] ([facility]) [address] [place] [address] 45577 Leukocyte esterase Auto test strip Ql (U) 75 Clarisa/???L Abnormal NEGATIVE [facility] Comment on above: Performed By: #### 5 8077-9 #### JATINDER BURDICK ([id number]) [facility] ([facility]) [address] [place] [address] Nitrite Auto test strip Ql (U) Negative Normal NEGATIVE [facility] Comment on above: Performed By: #### 5 8077-9 #### JATINDER BURDICK ([id number]) [facility] ([facility]) [address] [place] [address] pH (U) 6.0 [pH] Normal 5.0, 5.5, 6.0, 6.5, 7.0, 7.5, 8.0 [facility] Comment on above: Performed By: #### 5 8077-9 #### JATINDER BURDICK ([id number]) [facility] ([facility]) [address] [place] [address] 96453 Protein (U) [Mass/Vol] Negative Normal NEGAT EMANUEL, 10 (TRACE), 20 (TRACE) [facility] Comment on above: Performed By: #### 5 8077-9 #### JATINDER BURDICK ([id number]) [facility] ([facility]) [address] [place] [address] 67342 RBC (U) [#/Vol] 0.2 (2+) Abnormal NEGATIVE [facility] Comment on above: Performed By: #### 5 8077-9 #### JATINDER BURDICK ([id number]) [facility] ([facility]) [address] [place] [address] 98103 Specific gravity (U) [Rel density] 1.021 Normal 1.005-1.035 [facility] Comment on above: Performed By: #### 5 8077-9 #### JATINDER BURDICK ([id number]) [facility] ([facility]) [address] [place] [address] Urobilinogen (U) [Mass/Vol] Normal Normal Normal [facility] Comment on above: Performed By: #### 5 8077-9 #### JATINDER BURDICK ([id number]) [facility] ([facility]) [address] [place] [address] Urinalysis microscopic panel Auto Ql (U)on 03-06-2024 Bacteria Auto (Urine sed) [#/Area] 1+ Abnormal NONE SEEN /HPF [facility] Epithelial cells.squamous Auto (Urine sed) [#/Area] 1-9 (SPARSE) Reference range not established. /HPF [facility] Mucus Auto (Urine sed) [#/Area] FEW Reference range not established. /LPF [facility] RBC Auto (Urine sed) [#/Area] 6-10 Abnormal NONE, 1-2, 3-5 /HPF [facility] WBC Auto (Urine sed) [#/Area] 1-5 1-5, NONE /HPF [facility] Bacteria Auto (Urine sed) [#/Area] 1+ /HPF Abnormal NONE SEEN [facility] Comment on above: Performed By: #### 5 3315-8 #### JATINDER BURDICK ([id number]) [facility] ([facility]) [address] [place] [address] Epithelial cells.squamous Auto (Urine sed) [#/Area] 1-9 (SPARSE) Normal Reference range not established. [facility] Comment on above: Performed By: #### 5 3315-8 #### JATINDER BURDICK ([id number]) [facility] ([facility]) [address] [place] [address] Mucus Auto (Urine sed) [#/Area] FEW Normal Reference range not established. [facility] Comment on above: Performed By: #### 5 3315-8 #### JATINDER BURDICK ([id number]) [facility] ([facility]) [address] [place] [address] RBC Auto (Urine sed) [#/Area] 6-10 Abnormal NONE, 1-2, 3-5 [facility] Comment on above: Performed By: #### 5 3315-8 #### JATINDER BURDICK ([id number]) [facility] ([facility]) [address] [place] [address] 41172 WBC Auto (Urine sed) [#/Area] 1-5 Normal 1-5, NONE [facility] Comment on above: Performed By: #### 5 3315-8 #### JATINDER BURDICK ([id number]) [facility] ([facility]) [address] [place] [address] 44453 CBC W Auto Differential pane l (Bld)on 11-30-2023 Basophils (Bld) [#/Vol] 0.05 x10*3/uL Normal 0.00-0.10 [facility] Comment on above: Performed By: #### 5 7021-8 #### JATINDER BURDICK ([id number]) [facility] ([facility]) [address] [place] [address] 08000 Basophils/100 WBC (Bld) 0.7 % Normal 0.0-2.0 U [facility] Comment on above: Performed By: #### 5 7021-8 #### JATINDER BURDICK ([id number]) [facility] ([facility]) [address] [place] [address] 05610 Eosinophils (Bld) [#/Vol] 0.23 x10*3/uL Normal 0.00-0.70 [facility] Comment on above: Performed By: #### 5 7021-8 #### JATINDER BURDICK ([id number]) [facility] ([facility]) [address] [place] [address] 36929 Eosinophils/100 WBC (Bld) 3.2 % Normal 0.0-6.0 [facility] Comment on above: Performed By: #### 5 7021-8 #### JATINDER BURDICK ([id number]) [facility] ([facility]) [address] [place] [address] 35899 Erythrocyte distribution width (RBC) [Ratio] 14.6 % High 11.5-14.5 [facility] Comment on above: Performed By: #### 5 7021-8 #### JATINDER BURDICK ([id number]) [facility] ([facility]) [address] [place] [address] 29282 Hematocrit (Bld) [Volume fraction] 43.1 % Normal 36.0-46.0 [facility] Comment on above: Performed By: #### 5 7021-8 #### JATINDER BURDICK ([id number]) [facility] ([facility]) [address] [place] [address] 97290 Hemoglobin (Bld) [Mass/Vol] 13.6 g/dL Normal 12.0-16.0 [facility] Comment on above: Performed By: #### 5 7021-8 #### JATINDER BURDICK ([id number]) [facility] ([facility]) [address] [place] [address] 39020 Immature granulocytes (Bld) [#/Vol] 0.02 x10*3/uL Normal 0.00-0.70 [facility] Comment on above: Performed By: #### 5 7021-8 #### JATINDER BURDICK ([id number]) [facility] ([facility]) [address] [place] [address] 08242 Immature granulocytes/100 WBC (Bld) 0.3 % Normal 0.0-0.9 [facility] Comment on above: Result Comment: Carole ture Granulocyte Count (IG) includes promyelocytes, myelocytes and metamyelocytes but does not include bands. Percent differential counts (%) should be interpreted in the context of the absolute cell counts (cells/UL). Performed By: #### 5 7021-8 #### JATINDER BURDICK ([id number]) [facility] ([facility]) [address] [place] [address] 95015 Lymphocytes (Bld) [#/Vol] 2.64 x10*3/uL Normal 1.20-4.80 [facility] Comment on above: Performed By: #### 5 7021-8 #### JATINDER BURDICK ([id number]) [facility] ([facility]) [address] [place] [address] 07249 Lymphocytes/100 WBC (Bld) 36.6 % Normal 13.0-44.0 [facility] Comment on above: Performed By: #### 5 7021-8 #### JATINDER BURDICK ([id number]) [facility] ([facility]) [address] [place] [address] 25604 MCH (RBC) [Entitic mass] 26.7 pg Normal 26.0-34.0 [facility] Comment on above: Performed By: #### 7021-8 #### JATINDER BURDICK ([id number]) [facility] ([facility]) [address] [place] [address] 91771 MCHC (RBC) [Mass/Vol] 31.6 g/dL Low 32.0-36.0 [facility] Comment on above: Performed By: #### 5 7021-8 #### JATINDER BURDICK ([id number]) [facility] ([facility]) [address] [place] [address] 87926 MCV (RBC) [Entitic vol] 85 fL Normal 80-100 U [facility] Comment on above: Performed By: #### 5 7021-8 #### JATINDER BURDICK ([id number]) [facility] ([facility]) [address] [place] [address] 59025 Monocytes (Bld) [#/Vol] 0.47 x10*3/uL Normal 0.10-1.00 [facility] Comment on above: Performed By: #### 5 7021-8 #### JATINDER BURDICK ([id number]) [facility] ([facility]) [address] [place] [address] 17138 Monocytes/100 WBC (Bld) 6.5 % Normal 2.0-10.0 [facility] Comment on above: Performed By: #### 5 7021-8 #### JATINDER BURDICK ([id number]) [facility] ([facility]) [address] [place] [address] 79306 Neutrophils (Bld) [#/Vol] 3.80 x10*3/uL Normal 1.20-7.70 [facility] Comment on above: Result Comment: Perc ent differential counts (%) should be interpreted in the context of the absolute cell counts (cells/uL). Performed By: #### 5 7021-8 #### JATINDER BURDICK ([id number]) [facility] ([facility]) [address] [place] [address] 65677 Neutrophils/100 WBC (Bld) 52.7 % Normal 40.0-80.0 [facility] Comment on above: Performed By: #### 5 7021-8 #### JATINDER BURDICK ([id number]) [facility] ([facility]) [address] [place] [address] 80612 Nucleated RBC/100 WBC (Bld) [Ratio] 0.0 /100 WBCs Normal 0.0-0.0 [facility] Comment on above: Performed By: #### 5 7021-8 #### JATINDER BURDICK ([id number]) [facility] ([facility]) [address] [place] [address] [id number] Platelets (Bld) [#/Vol] 301 x10*3/uL Normal 150-450 [facility] Comment on above: Performed By: #### 5 7021-8 #### JATINDER BURDICK ([id number]) [facility] LAB ([facility]) [address] [place] [address] 27065 RBC (Bld) [#/Vol] 5.10 x10*6/uL Normal 4.00-5.20 [facility] Comment on above: Performed By: #### 5 7021-8 #### JATINDER BURDICK ([id number]) [facility] ([facility]) [address] [place] [address] 77329 WBC (Bld) [#/Vol] 7.2 x10*3/uL Normal 4.4-11.3 [facility] Comment on above: Performed By: #### 5 7021-8 #### JATINDER BURDICK ([id number]) [facility] ([facility]) [address] [place] [address] 70800 Calcidiolon 11-30-2023 25-hydroxyvitamin D3 [Mass/Vol] 30 ng/mL Normal 30-100 [facility] Comment on above: Order Comment: Defic iency: < 20 ng/mlInsufficiency: 20-29 ng/mlSufficiency: 30-100 ng/mlThis assay accurately quantifies the sum of Vitamin D3, 25-Hydroxy and Vitamin D2,25-Hydroxy. Performed By: #### 2 4331-1 #### JATINDER BURDICK ([id number]) [facility] ([facility]) [address] [place] [address] 94717 Ferritinon 11-30-2023 Ferritin [Mass/Vol] 20 ng/mL Normal 8-150 [facility] Comment on above: Performed By: #### 2 276-4 #### JATINDER BURDICK ([id number]) [facility] ([facility]) [address] [place] [address] 99996 Iron and Iron binding capaci ty panelon 11-30-2023 Iron [Mass/Vol] 62 ug/dL Normal 35-150 [facility] Comment on above: Performed By: #### 5 0190-8 #### JATIDNER BURDICK ([id number]) [facility] ([facility]) [address] [place] [address] 20546 Iron binding capacity [Mass/Vol] 365 ug/dL Normal 240-445 [facility] Comment on above: Performed By: #### 5 0190-8 #### JATINDER BURDICK ([id number]) [facility] ([facility]) [address] [place] [address] 47796 Iron binding capacity.unsaturated [Mass/Vol] 303 ug/dL Normal 110-370 [facility] Comment on above: Performed By: #### 5 0190-8 #### JATINDER BURDICK ([id number]) [facility] ([facility]) [address] [place] [address] 48612 Iron saturation [Mass fraction] 17 % Low 25-45 [facility] Comment on above: Performed By: #### 5 0190-8 #### JATINDER BURDICK ([id number]) [facility] ([facility]) [address] [place] [address] 02455 CBC W Auto Differential pane l (Bld)on 09-11-2023 Basophils (Bld) [#/Vol] 0.04 x10*3/uL Normal 0.00-0.10 [facility] Comment on above: Performed By: #### 5 7021-8 #### JATINDER BURDICK ([id number]) [facility] ([facility]) [address] [place] [address] 64534 Basophils/100 WBC (Bld) 0.6 % Normal 0.0-2.0 [facility] Comment on above: Performed By: #### 7021-8 #### JATINDER BURDICK ([id number]) [facility] ([facility]) [address] [place] [address] 59855 Eosinophils (Bld) [#/Vol] 0.18 x10*3/uL Normal 0.00-0.70 [facility] Comment on above: Performed By: #### 70-8 #### JATINDER BURDICK ([id number]) [facility] ([facility]) [address] [place] [address] 52521 Eosinophils/100 WBC (Bld) 2.8 % Normal 0.0-6.0 [facility] Comment on above: Performed By: #### 7021-8 #### JATINDER BURDICK ([id number]) [facility] ([facility]) [address] [place] [address] 60820 Erythrocyte distribution width (RBC) [Ratio] 14.2 % Normal 11.5-14.5 [facility] Comment on above: Performed By: #### 5 7021-8 #### AJTINDER BURDICK ([id number]) [facility] ([facility]) [address] [place] [address] 81996 Hematocrit (Bld) [Volume fraction] 39.9 % Normal 36.0-46.0 [facility] Comment on above: Performed By: #### 5 7021-8 #### JATINDER BURDICK ([id number]) [facility] ([facility]) [address] [place] [address] 31930 Hemoglobin (Bld) [Mass/Vol] 12.4 g/dL Normal 12.0-16.0 [facility] Comment on above: Performed By: #### 5 7021-8 #### JATINDER BURDICK ([id number]) [facility] ([facility]) [address] [place] [address] 88291 Immature granulocytes (Bld) [#/Vol] 0.01 x10*3/uL Normal 0.00-0.70 [facility] Comment on above: Performed By: #### 5 7021-8 #### JATINDER BURDICK ([id number]) [facility] ([facility]) [address] [place] [address] 02013 Immature granulocytes/100 WBC (Bld) 0.2 % Normal 0.0-0.9 [facility] Comment on above: Result Comment: Carole ture Granulocyte Count (IG) includes promyelocytes, myelocytes and metamyelocytes but does not include bands. Percent differential counts (%) should be interpreted in the context of the absolute cell counts (cells/UL). Performed By: #### 5 7021-8 #### JATINDER BURDICK ([id number]) [facility] ([facility]) [address] [place] [address] 19797 Lymphocytes (Bld) [#/Vol] 2.22 x10*3/uL Normal 1.20-4.80 [facility] Comment on above: Performed By: #### 5 7021-8 #### JATINDER BURDICK ([id number]) [facility] ([facility]) [address] [place] [address] 04419 Lymphocytes/100 WBC (Bld) 34.0 % Normal 13.0-44.0 [facility] Comment on above: Performed By: #### 5 7021-8 #### JATINDER BURDICK ([id number]) [facility] ([facility]) [address] [place] [address] 96825 MCH (RBC) [Entitic mass] 25.3 pg Low 26.0-34.0 [facility] Comment on above: Performed By: #### 5 7021-8 #### JATINDER BURDICK ([id number]) [facility] ([facility]) [address] [place] [address] 66550 MCHC (RBC) [Mass/Vol] 31.1 g/dL Low 32.0-36.0 [facility] Comment on above: Performed By: #### 5 7021-8 #### JATINDER BURDICK ([id number]) [facility] ([facility]) [address] [place] [address] 17498 MCV (RBC) [Entitic vol] 81 fL Normal 80-100 [facility] Comment on above: Performed By: #### 5 7021-8 #### JATINDER BURDICK ([id number]) [facility] ([facility]) [address] [place] [address] 44475 Monocytes (Bld) [#/Vol] 0.39 x10*3/uL Normal 0.10-1.00 [facility] Comment on above: Performed By: #### 5 7021-8 #### JATINDER BURDICK ([id number]) [facility] ([facility]) [address] [place] [address] 52129 Monocytes/100 WBC (Bld) 6.0 % Normal 2.0-10.0 [facility] Comment on above: Performed By: #### 5 7021-8 #### JATINDER BURDICK ([id number]) [facility] ([facility]) [address] [place] [address] 50615 Neutrophils (Bld) [#/Vol] 3.68 x10*3/uL Normal 1.20-7.70 [facility] Comment on above: Result Comment: Perc ent differential counts (%) should be interpreted in the context of the absolute cell counts (cells/uL). Performed By: #### 5 7021-8 #### JATINDER BURDICK ([id number]) [facility] ([facility]) [address] [place] [address] 22201 Neutrophils/100 WBC (Bld) 56.4 % Normal 40.0-80.0 [facility] Comment on above: Performed By: #### 5 7021-8 #### JATINDER BURDICK ([id number]) [facility] ([facility]) [address] [place] [address] 62531 Nucleated RBC/100 WBC (Bld) [Ratio] 0.0 /100 WBCs Normal 0.0-0.0 [facility] Comment on above: Performed By: #### 5 7021-8 #### JATINDER BURDICK ([id number]) [facility] ([facility]) [address] [place] [address] 64541 Platelets (Bld) [#/Vol] 308 x10*3/uL Normal 150-450 [facility] Comment on above: Performed By: #### 5 7021-8 #### JATINDER BURDICK ([id number]) [facility] ([facility]) [address] [place] [address] 31061 RBC (Bld) [#/Vol] 4.91 x10*6/uL Normal 4.00-5.20 [facility] Comment on above: Performed By: #### 5 7021-8 #### JATINDER BURDICK ([id number]) [facility] ([facility]) [address] [place] [address] 95261 WBC (Bld) [#/Vol] 6.5 x10*3/uL Normal 4.4-11.3 [facility] Comment on above: Performed By: #### 5 7021-8 #### JATINDER BURDICK ([id number]) [facility] ([facility]) [address] [place] [address] Calcidiolon 09-11-2023 25-hydroxyvitamin D3 [Mass/Vol] 21 ng/mL Low 30-100 [facility] Comment on above: Order Comment: Defic iency: < 20 ng/ml Insufficiency: 20-29 ng/ml Sufficiency: 30-100 ng/ml This assay accurately quantifies the sum of Vitamin D3, 25-Hydroxy and Vitamin D2,25-Hydroxy. Performed By: #### 1 989-3 #### JATINDER BURDICK ([id number]) [facility] ([facility]) [address] [place], [place] [address] Comprehensive metabolic 2000 panelon 09-11-2023 Albumin BCP dye [Mass/Vol] 4.2 g/dL Normal 3.4-5.0 [facility] Comment on above: Performed By: #### 2 4323-8 #### JATINDER BURDICK ([id number]) [facility] ([facility]) [address] [place] [address] 87048 ALP [Catalytic activity/Vol] 80 U/L Normal 33-110 [facility] Comment on above: Performed By: #### 2 4323-8 #### JATINDER BURDICK ([id number]) [facility] ([facility]) [address] [place] [address] ALT With P-5'-P [Catalytic activity/Vol] 19 U/L Normal 7-45 [facility] Comment on above: Result Comment: Cecilia ents treated with Sulfasalazine may generate falsely decreased results for ALT. Performed By: #### 2 4323-8 #### JATINDER BURDICK ([id number]) [facility] ([facility]) [address] [place] [address] Anion gap [Moles/Vol] 10 mmol/L Normal 10-20 [facility] Comment on above: Performed By: #### 2 432-8 #### JATINDER BURDICK ([id number]) [facility] ([facility]) [address] [place] [address] AST With P-5'-P [Catalytic activity/Vol] 17 U/L Normal 9-39 [facility] Comment on above: Performed By: #### 2 432-8 #### JATINDER BURDICK ([id number]) [facility] ([facility]) [address] [place] [address] Bilirubin [Mass/Vol] 0.4 mg/dL Normal 0.0-1.2 [facility] Comment on above: Performed By: #### 2 4323-8 #### JATINDER BURDICK ([id number]) [facility] ([facility]) [address] [place] [address] 26265 Calcium [Mass/Vol] 9.1 mg/dL Normal 8.6-10.3 [facility] Comment on above: Performed By: #### 2 4323-8 #### JATINDER BURDICK ([id number]) [facility] ([facility]) [address] [place] [address] 90999 Chloride [Moles/Vol] 104 mmol/L Normal 98-107 [facility] Comment on above: Performed By: #### 2 4323-8 #### JATINDER BURDICK ([id number]) [facility] ([facility]) [address] [place] [address] CO2 [Moles/Vol] 28 mmol/L Normal 21-32 [facility] Comment on above: Performed By: #### 2 4323-8 #### JATINDER BURDICK ([id number]) [facility] ([facility]) [address] [place] [address] 14152 Creatinine [Mass/Vol] 0.77 mg/dL Normal 0.50-1.05 [facility] Comment on above: Performed By: #### 2 4323-8 #### JATINDER BURDICK ([id number]) [facility] ([facility]) [address] [place] [address] 19083 GFR/1.73 sq M.predicted MDRD (S/P/Bld) [Vol rate/Area] mL/min/{1.73_m2} Normal >60 [facility] Comment on above: Result Comment: Calc ulations of estimated GFR are performed using the 2020 CKD-EPI Study Refit equation without the race variable for the IDMS-Traceable creatinine methods. https://jasn.asnjournals.org/content/early//ASN.2020 895744 Performed By: #### 2 4323-8 #### JATINDER BURDICK ([id number]) [facility] ([facility]) [address] [place] [address] 94197 Glucose [Mass/Vol] 91 mg/dL Normal 74-99 [facility] Comment on above: Performed By: #### 2 4323-8 #### JATINDER BURDICK ([id number]) [facility] ([facility]) [address] [place] [address] 85018 Potassium [Moles/Vol] 4.0 mmol/L Normal 3.5-5.3 [facility] Comment on above: Performed By: #### 2 4323-8 #### JATINDER BURDICK ([id number]) [facility] ([facility]) [address] [place] [address] 04931 Protein [Mass/Vol] 6.7 g/dL Normal 6.4-8.2 [facility] Comment on above: Performed By: #### 2 4323-8 #### JATINDER BURDICK ([id number]) [facility] ([facility]) [address] [place] [address] 17506 Sodium [Moles/Vol] 138 mmol/L Normal 136-145 [facility] Comment on above: Performed By: #### 2 4323-8 #### JATINDER BURDICK ([id number]) [facility] ([facility]) [address] [place] [address] 61083 Urea nitrogen [Mass/Vol] 8 mg/dL Normal 6-23 [facility] Comment on above: Performed By: #### 2 4323-8 #### JATINDER BURDICK ([id number]) [facility] ([facility]) [address] [place], [place] [address] Ferritinon 09-11-2023 Ferritin [Mass/Vol] 9 ng/mL Normal 8-150 [facility] Comment on above: Performed By: #### 2 276-4 #### JATINDER BURDICK ([id number]) [facility] ([facility]) [address] [place], [place] [address] HbA1c (Bld) [Mass fraction]o n 09-11-2023 Average glucose Estimated from glycated hemoglobin (Bld) [Mass/Vol] 111 mg/dL Normal Not Established [facility] Comment on above: Order Comment: Diagn osis of Diabetes-Adults Non-Diabetic: < or = 5.6% Increased risk for developing diabetes: 5.7-6.4% Diagnostic of diabetes: > or = 6.5% Performed By: #### 4 548-4 #### JATINDER BURDICK ([id number]) [facility] ([facility]) [address] [place] [address] 03757 Hemoglobin A1c/Hemoglobin.to marko 09-11-2023 HbA1c (Bld) [Mass fraction] 5.5 % Normal see below [facility] Comment on above: Order Comment: Diagn osis of Diabetes-Adults Non-Diabetic: < or = 5.6% Increased risk for developing diabetes: 5.7-6.4% Diagnostic of diabetes: > or = 6.5% Performed By: #### 4 548-4 #### JATINDER BURDICK ([id number]) [facility] ([facility]) [address] [place] [address] Iron and Iron binding capaci ty panelon 09-11-2023 Iron [Mass/Vol] 75 ug/dL Normal 35-150 [facility] Comment on above: Performed By: #### 5 0190-8 #### JATINDER BURDICK ([id number]) [facility] ([facility]) [address] [place] [address] Iron binding capacity [Mass/Vol] 409 ug/dL Normal 240-445 [facility] Comment on above: Performed By: #### 5 0190-8 #### JATINDER BURDICK ([id number]) [facility] ([facility]) [address] [place] [address] 04459 Iron binding capacity.unsaturated [Mass/Vol] 334 ug/dL Normal 110-370 [facility] Comment on above: Performed By: #### 5 0190-8 #### JATINDER BURDICK ([id number]) [facility] ([facility]) [address] [place] [address] 22014 Iron saturation [Mass fraction] 18 % Low 25-45 [facility] Comment on above: Performed By: #### 5 0190-8 #### JATINDER BURDICK ([id number]) [facility] ([facility]) [address] [place] [address] 58122 Lipid 1996 panelon Cholesterol [Mass/Vol] 172 mg/dL Normal 0-199 [facility] Comment on above: Result Comment: [...] to Metamizole dosing. Performed By: #### 2 2381-1 #### JATINDER BURDICK ([id number]) [facility] ([facility]) [facility] [place] [address] Cholesterol in HDL [Mass/Vol] 49.0 mg/dL Normal [facility] Comment on above: Result Comment: Age Very Low Low Normal High 0-19 Y < 35 < 40 40-45 ---- 20-24 Y ---- < 40 >45 ---- >24 Y ---- < 40 40-60 >60 Performed By: #### 2 4331-1 #### JATINDER BURDICK ([id number]) [facility] ([facility]) [address] [place] [address] 59127 Cholesterol in LDL [Mass/Vol] 101 mg/dL Normal <=119 [facility] Comment on above: Result Comment: Near Borderline AGE Desirable Optimal High High Very High 0-19 Y 0 - 109 --- 110-129 >/= 130 ---- 20-24 Y 0 - 119 --- 120-159 >/= 160 ---- >24 Y 0 - 99 100-129 130-159 160-189 >/=190 Performed By: #### 2 4331-1 #### JATINDER BURDICK ([id number]) [facility] ([facility]) [address] [place] [address] 84846 Cholesterol in VLDL [Mass/Vol] 22 mg/dL Normal 0-40 [facility] Comment on above: Performed By: #### 2 4331-1 #### JATINDER BURDICK ([id number]) [facility] ([facility]) [address] [place] [address] 06607 CHOLESTEROL/HDL RATIO 3.5 Normal [facility] Comment on above: Result Comment: Ref Values Desirable < 3.4 High Risk > 5.0 Performed By: #### 2 4331-1 #### JATINDER BURDICK ([id number]) [facility] ([facility]) [address] [place] [address] 17647 NON HDL CHOLESTEROL 123 mg/dL Normal 0-149 [facility] Comment on above: Result Comment: Age Desirable Borderline High High Very High 0-19 Y 0 - 119 120 - 144 >/= 145 >/= 160 20-24 Y 0 - 149 150 - 189 >/= 190 ---- >24 Y 30 mg/dL above LDL Cholesterol goal Performed By: #### 2 4331-1 #### JATINDER BURDICK ([id number]) [facility] ([facility]) [facility] [place] [address] Triglyceride [Mass/Vol] 112 mg/dL Normal 0-149 [facility] Comment on above: Result Comment: [...] By: #### 2 4331-1 #### JATINDER BURDICK ([id number]) [facility] ([facility]) [address] [place], [place] [address] Carboxy tetrahydrocannabinol (U) [Mass/Vol]on 05-19-2023 [facility] THC (Marijuana), Urine, Conf irmationon 05-19-2023 Carboxy tetrahydrocannabinol (U) [Mass/Vol] 25 ng/mL [facility] Comment on above: INTERPRETIVE INFORMA TION: THC Metabolite, Urine, Quantitative Methodology: Quantitative Liquid Chromatography-Tandem Mass Spectrometry Positive cutoff: 15 ng/mL For medical purposes only; not valid for forensic use. The drug analyte detected in this assay, 9-carboxy THC, is a metabolite of hualt-6-biovoegrjqoqhmwustbw (THC). Detection of 9-carboxy THC suggests use [...] developed and its performance characteristics determined by [facility]. It has not been cleared or approved by the [place] Food and Drug Administration. This test was performed in a CLIA certified laboratory and is intended for clinical purposes. Performed By: [facility] [address] [place] [address] Hospital Internship: Luis Fernando Paz MD, PhD CLIA Number: [id number] Carboxy tetrahydrocannabinol on 05-15-2023 Carboxy tetrahydrocannabinol (U) [Mass/Vol] 25 ng/mL [facility] Comment on above: Result Comment: INTE RPRETIVE INFORMATION: THC Metabolite, Urine, Quantitative Methodology: Quantitative Liquid Chromatography-Tandem Mass Spectrometry Positive cutoff: 15 ng/mL For medical purposes only; not valid for forensic use. The drug analyte detected in this assay, 9-carboxy THC, is a metabolite of hnefz-6-broflbmsxzgeimsutuwu (THC). Detection of 9-carboxy THC suggests use [...] developed and its performance characteristics determined by [facility]. It has not been cleared or approved by the [place] Food and Drug Administration. This test was performed in a CLIA certified laboratory and is intended for clinical purposes. Performed By: [facility] [address] [place] [address] Hospital Internship: Luis Fernando Paz MD, PhD CLIA Number: [id number] Performed By: #### 3 436-3 #### [facility] ([facility]) ([id number]) [address] [place], [place] [id number] Drugs of abuse screen W Refl ex confirm panel (U)on 05-15-2023 Amphetamines Screen Ql (U) Negative Presumptive Negative [facility] Comment on above: CUTOFF LEVEL: 500 NG /ML Cross-reactivity has been reported with high concentrations of the following drugs: buproprion, chloroquine, chlorpromazine, ephedrine, mephentermine, fenfluramine, phentermine, phenylpropanolamine, pseudoephedrine, and propranolol. Barbiturates Screen Ql (U) Negative Presumptive Negative [facility] Comment on above: CUTOFF LEVEL: 200 NG /ML Benzodiazepines Ql (U) Negative Presu mptive Negative [facility] Comment on above: CUTOFF LEVEL: 200 NG /ML Benzoylecgonine Screen Ql (U) Negative Presumptive Negative [facility] Comment on above: CUTOFF LEVEL: 150 NG /ML Cannabinoids Screen Ql (U) Positive Abnormal Presumptive Negative [facility] Comment on above: CUTOFF LEVEL: 50 NG/ ML fentaNYL+Norfentanyl Screen Ql (U) Negative Presumptive Negative [facility] Comment on above: CUTOFF LEVEL: 5 NG/M L Interpretation and review of laboratory results Abnormal [facility] Methadone Screen Ql (U) Negative Pres umptive Negative [facility] Comment on above: CUTOFF LEVEL: 150 NG /ML The metabolite L-vvytn-djnyjxwdbojpru (LAAM) is not detected by this method in concentrations that would be found in the urine of patients on LAAM therapy. Opiates Screen Ql (U) Negative Presum ptive Negative [facility] Comment on above: CUTOFF LEVEL: 300 NG /ML The opiate screen does not detect fentanyl, meperidine, or tramadol. Oxycodone is not consistently detected (refer to Oxycodone Screen, Urine result). oxyCODONE+oxyMORphone Screen Ql (U) Negative Presumptive Negative [facility] Comment on above: CUTOFF LEVEL: 100 NG /ML This test will accurately detect both oxycodone and oxymorphone. Phencyclidine Ql (U) Negative Presump tive Negative [facility] Comment on above: CUTOFF LEVEL: 25 [...] be directed to the laboratory medical directors. [facility] Amphetamines Screen Ql (U) Negative Normal Presumptive Negative [facility] Comment on above: Order Comment: Drug [...] By: #### 8 7428-9 #### TOBIAS GENNARO ([id number]) [facility] ([facility]) [address] [place] [address] Barbiturates Screen Ql (U) Negative Normal Presumptive Negative [facility] Comment on above: Order Comment: Drug [...] By: #### 8 7428-9 #### JATINDER BURDICK ([id number]) [facility] ([facility]) [address] [place] [address] Benzodiazepines Ql (U) Negative Normal Presu mptive Negative [facility] Comment on above: Order Comment: Drug [...] By: #### 8 7428-9 #### JATINDER BURDICK ([id number]) [facility] ([facility]) [address] [place], [place] [address] Benzoylecgonine Screen Ql (U) Negative Normal Presumptive Negative [facility] Comment on above: Order Comment: Drug [...] By: #### 8 7428-9 #### JATINDER BURDICK ([id number]) [facility] ([facility]) [address] [place] [address] Cannabinoids Screen Ql (U) Positive Abnormal Presumptive Negative [facility] Comment on above: Order Comment: Drug [...] By: #### 8 7428-9 #### JATINDER BURDICK ([id number]) [facility] ([facility]) [address] [place] [address] fentaNYL+Norfentanyl Screen Ql (U) Negative Normal Presumptive Negative [facility] Comment on above: Order Comment: Drug [...] By: #### 8 7428-9 #### JATINDER BURDICK ([id number]) [facility] ([facility]) [address] [place] [address] Methadone Screen Ql (U) Negative Normal Pres umptive Negative [facility] Ambulatory Comment on above: Order Comment: Drug [...] CUTO FF LEVEL: 150 NG/ML The metabolite P-zlxaa-tvauhjukxiedvf (LAAM) is not detected by this method in concentrations that would be found in the urine of patients on LAAM therapy. Performed By: #### 8 7428-9 #### JATINDER BURDICK ([id number]) [facility] ([facility]) [address] [place] [address] Opiates Screen Ql (U) Negative Normal Presum ptive Negative [facility] Ambulatory Comment on above: Order Comment: Drug [...] By: #### 8 7428-9 #### TOBIAS GENNARO ([id number]) [facility] ([facility]) [address] [place], [place] [id number] oxyCODONE+oxyMORphone Screen Ql (U) Negative Normal Presumptive Negative [facility] Ambulatory Comment on above: Order Comment: Drug [...] By: #### 8 7428-9 #### JATINDER BURDICK ([id number]) [facility] ([facility]) [address] [place] [address] Phencyclidine Ql (U) Negative Normal Presump tive Negative [facility] Ambulatory Comment on above: Order Comment: Drug [...] By: #### 8 7428-9 #### JATINDER BURDICK ([id number]) [facility] ([facility]) [address] [place], [place] [id number] CBC AND DIFFERENTIALon 05-30 % AUTOMATED IMMATURE GRAN 0.2 % Normal 0.0 - 0.9 [facility] Comment on above: Result Comment: Carole ture Granulocyte Count (IG) includes promyelocytes, myelocytes and metamyelocytes but does not include bands. Percent differential counts (%) should be interpreted in the context of the absolute cell counts (cells/L). Performed By: #### C BCDF #### [address] [address] Basophils (Bld) [#/Vol] 0.02 10*3/uL Normal 0.00 - 0.1 0 [facility] Comment on above: Performed By: #### C BCDF #### [address] [address] Basophils/100 WBC (Bld) 0.4 % Normal 0.0 - 2.0 [facility] Comment on above: Performed By: #### C BCDF #### [address] [address] Eosinophils (Bld) [#/Vol] 0.08 10*3/uL Normal 0.00 - 0.70 [facility] Comment on above: Performed By: #### C BCDF #### [address] [address] Eosinophils/100 WBC (Bld) 1.4 % Normal 0.0 - 6.0 [facility] Comment on above: Performed By: #### C BCDF #### [address] [address] Erythrocyte distribution width (RBC) [Ratio] 15.0 % High 11.5 - 14.5 [facility] Comment on above: Performed By: #### C BCDF #### [address] [address] Hematocrit (Bld) [Volume fraction] 41.0 % Normal 36.0 - 46.0 [facility] Comment on above: Performed By: #### C BCDF #### [address] [address] Hemoglobin (Bld) [Mass/Vol] 13.1 g/dL Normal 12.0 - 16.0 [facility] Comment on above: Performed By: #### C BCDF #### [address] [address] Lymphocytes (Bld) [#/Vol] 2.13 10*3/uL Normal 1.20 - 4.80 [facility] Comment on above: Performed By: #### C BCDF #### [address] [address] Lymphocytes/100 WBC (Bld) 38.3 % Normal 13.0 - 44.0 [facility] Comment on above: Performed By: #### C BCDF #### [address] [address] MCHC (RBC) [Mass/Vol] 32.0 g/dL Normal 32.0 - 36.0 [facility] Comment on above: Performed By: #### C BCDF #### [address] [address] MCV (RBC) [Entitic vol] 81 fL Normal 80 - 100 [facility] Comment on above: Performed By: #### C BCDF #### [address] [address] Monocytes (Bld) [#/Vol] 0.33 10*3/uL Normal 0.10 - 1.0 0 [facility] Comment on above: Performed By: #### C BCDF #### [address] [address] Monocytes/100 WBC (Bld) 5.9 % Normal 2.0 - 10.0 [facility] Comment on above: Performed By: #### C BCDF #### [address] [address] Neutrophils (Bld) [#/Vol] 2.99 10*3/uL Normal 1.20 - 7.70 [facility] Comment on above: Result Comment: Perc ent differential counts (%) should be interpreted in the context of the absolute cell counts (cells/L). Performed By: #### C BCDF #### [address] [address] Neutrophils/100 WBC (Bld) 53.8 % Normal 40.0 - 80.0 [facility] Comment on above: Performed By: #### C BCDF #### [address] [address] Platelets (Bld) [#/Vol] 271 10*3/uL Normal 150 - 450 [facility] Comment on above: Performed By: #### C BCDF #### [address] [address] RBC 5.04 x10E12/L Normal 4.00 - 5.20 [facility] Comment on above: Performed By: #### C BCDF #### [address] [address] WBC (Bld) [#/Vol] 5.6 10*3/uL Normal 4.4 - 11.3 [facility] Comment on above: Performed By: #### C BCDF #### [address] [address] FERRITINon 05-30-2022 FERRITIN 20 ug/L Normal 8 - 150 [facility] Comment on above: Performed By: #### F ERRI #### [address] [address] HEMOGLOBIN A1Con 05-30-2022 Glucose [Mass/Vol] 100 mg/dL Normal [facility] Comment on above: Performed By: #### L IPID #### [address] [address] HbA1c (Bld) [Mass fraction] 5.1 % Normal [facility] Comment on above: Result Comment: Diag nosis of Diabetes-Adults Non-Diabetic: < or = 5.6% Increased risk for developing diabetes: 5.7-6.4% Diagnostic of diabetes: > or = 6.5% . Monitoring of Diabetes Age (y) Therapeutic Goal (%) Adults: >18 <7.0 Pediatrics: 13-18 <7.5 7-12 <8.0 0- 6 7.5-8.5 [place] [employer]. Diabetes Care 33(S1), Mar 2009. Performed By: #### L IPID #### [address] [address] IRON + TIBCon 05-30-2022 % SATURATION 27 % Normal 25 - 45 [facility] Comment on above: Performed By: #### L IPID #### [address] [address] Iron [Mass/Vol] 106 ug/dL Normal 35 - 150 [facility] [place] Comment on above: Performed By: #### L IPID #### [address] [address] TIBC 388 ug/dL Normal 240 - 445 [facility] Comment on above: Performed By: #### L IPID #### [address] [address] VITAMIN D, 25-HYDROXYon 05-11 VITAMIN D, 25-HYDROXY 25 ng/mL Abnormal [facility] Comment on above: Result Comment: . DEFICIENCY: < 20 NG/ML INSUFFICIENCY: 20-29 NG/ML SUFFICIENCY: 30-100 NG/ML THIS ASSAY ACCURATELY QUANTIFIES THE SUM OF VITAMIN D3, 25-HYDROXY AND VIT D2,25-HYDROXY. Performed By: #### V TDOH #### [address] [address] Office Visit (Primary Care F orms)on 03-23-2022 [...] Anxiety; JOYCE = N; Verified Transmission to [facility]; Last Updated By: Cipriano [...] History Problems History of section History of [place] tooth extraction Family History Mother Family history [...] Vital Signs Recorded: 23Mar2022 02:29PM Heart Rate92 Mjbsfkmj324 Crxpgoymu03 Height5 ft 7 in Yztdjn697 lb BMI Zfafceivyg18.06 kg/m2 BSA Calculated2.2 Tobacco Usea) Yes Physical Exam Constitutional - Well developed, well no (more content not included)... Normal [employer] Tobacco Screening.on 023 Tobacco use status CPHS a) Yes [facility] 205 DO Work Phone: FERRITINon 03-15-2022 FERRITIN 17 ug/L Normal 8 - 150 [facility] Comment on above: Performed By: #### F ERRI #### [address] [address] IRON + TIBCon 03-15-2022 % SATURATION 9 % Low 25 - 45 [facility] Comment on above: Performed By: #### I RONT #### [address] [address] Iron [Mass/Vol] 37 ug/dL Normal 35 - 150 [facility] [place] Comment on above: Performed By: #### I RONT #### [address] [address] TIBC 417 ug/dL Normal 240 - 445 [facility] Comment on above: Performed By: #### I RONT #### [address] [address] CBC AND DIFFERENTIALon 03-14 % AUTOMATED IMMATURE GRAN 0.2 % Normal 0.0 - 0.9 [facility] Comment on above: Result Comment: Carole ture Granulocyte Count (IG) includes promyelocytes, myelocytes and metamyelocytes but does not include bands. Percent differential counts (%) should be interpreted in the context of the absolute cell counts (cells/L). Performed By: #### L IPID #### [address] [address] Basophils (Bld) [#/Vol] 0.05 10*3/uL Normal 0.00 - 0.1 0 [facility] Comment on above: Performed By: #### L IPID #### [address] [address] Basophils/100 WBC (Bld) 0.8 % Normal 0.0 - 2.0 [facility] Comment on above: Performed By: #### L IPID #### [address] [address] Eosinophils (Bld) [#/Vol] 0.14 10*3/uL Normal 0.00 - 0.70 [facility] Comment on above: Performed By: #### L IPID #### [address] [address] Eosinophils/100 WBC (Bld) 2.1 % Normal 0.0 - 6.0 [facility] Comment on above: Performed By: #### L IPID #### [address] [address] Erythrocyte distribution width (RBC) [Ratio] 14.0 % Normal 11.5 - 14.5 [facility] Comment on above: Performed By: #### L IPID #### [address] [address] Hematocrit (Bld) [Volume fraction] 41.2 % Normal 36.0 - 46.0 [facility] Comment on above: Performed By: #### L IPID #### [address] [address] Hemoglobin (Bld) [Mass/Vol] 13.1 g/dL Normal 12.0 - 16.0 [facility] Comment on above: Performed By: #### L IPID #### [address] [address] Lymphocytes (Bld) [#/Vol] 2.38 10*3/uL Normal 1.20 - 4.80 [facility] Comment on above: Performed By: #### L IPID #### [address] [place] [address] Lymphocytes/100 WBC (Bld) 36.1 % Normal 13.0 - 44.0 [facility] Comment on above: Performed By: #### L IPID #### [address] [address] MCHC (RBC) [Mass/Vol] 31.8 g/dL Low 32.0 - 36.0 [facility] Comment on above: Performed By: #### L IPID #### [address] [address] MCV (RBC) [Entitic vol] 78 fL Low 80 - 100 [facility] Comment on above: Performed By: #### L IPID #### [address] [address] Monocytes (Bld) [#/Vol] 0.41 10*3/uL Normal 0.10 - 1.0 0 [facility] Comment on above: Performed By: #### L IPID #### [address] [address] Monocytes/100 WBC (Bld) 6.2 % Normal 2.0 - 10.0 [facility] Comment on above: Performed By: #### L IPID #### [address] [address] Neutrophils (Bld) [#/Vol] 3.60 10*3/uL Normal 1.20 - 7.70 [facility] Comment on above: Result Comment: Perc ent differential counts (%) should be interpreted in the context of the absolute cell counts (cells/L). Performed By: #### L IPID #### [address] [address] Neutrophils/100 WBC (Bld) 54.6 % Normal 40.0 - 80.0 [facility] Comment on above: Performed By: #### L IPID #### [address] [address] Platelets (Bld) [#/Vol] 325 10*3/uL Normal 150 - 450 [facility] Comment on above: Performed By: #### L IPID #### [address] [address] RBC 5.30 x10E12/L High 4.00 - 5.20 [facility] Comment on above: Performed By: #### L IPID #### [address] [address] WBC (Bld) [#/Vol] 6.6 10*3/uL Normal 4.4 - 11.3 [facility] Comment on above: Performed By: #### L IPID #### [address] [address] COMPREHENSIVE PANELon 2022 Albumin [Mass/Vol] 4.3 g/dL Normal 3.4 - 5.0 [facility] Comment on above: Performed By: #### C MP #### [address] [address] ALP [Catalytic activity/Vol] 83 U/L Normal 33 - 110 [facility] Comment on above: Performed By: #### C MP #### [address] [address] ALT [Catalytic activity/Vol] 17 U/L Normal 7 - 45 [facility] Comment on above: Result Comment: Cecilia ents treated with Sulfasalazine may generate falsely decreased results for ALT. Performed By: #### C MP #### [address] [address] Anion gap [Moles/Vol] 10 mmol/L Normal 10 - 20 [facility] Comment on above: Performed By: #### C MP #### [address] [address] AST [Catalytic activity/Vol] 16 U/L Normal 9 - 39 [facility] Comment on above: Performed By: #### C MP #### [address] [address] Bilirubin [Mass/Vol] 0.3 mg/dL Normal 0.0 - 1.2 [facility] [place], [facility] Comment on above: Performed By: #### C MP #### [address] [address] Calcium [Mass/Vol] 9.6 mg/dL Normal 8.6 - 10.3 [facility] Comment on above: Performed By: #### C MP #### [address] [address] Chloride [Moles/Vol] 104 mmol/L Normal 98 - 107 [facility] [place] Comment on above: Performed By: #### C MP #### [address] [address] Creatinine [Mass/Vol] 0.75 mg/dL Normal 0.50 - 1.05 [facility] Comment on above: Performed By: #### C MP #### [address] [address] eGFR FEMALE >90 Normal >90 [facility] Comment on above: Result Comment: CALC ULATIONS OF ESTIMATED GFR ARE PERFORMED USING THE 2020 CKD-EPI STUDY REFIT EQUATION WITHOUT THE RACE VARIABLE FOR THE IDMS-TRACEABLE CREATININE METHODS. https://jasn.asnjournals.org/content/early//ASN.2020 266191 Performed By: #### C MP #### [address] [address] Glucose [Mass/Vol] 104 mg/dL High 74 - 99 [facility] Comment on above: Performed By: #### C MP #### [address] [address] HCO3 (Bld) [Moles/Vol] 28 mmol/L Normal 21 - 32 [facility] Comment on above: Performed By: #### C MP #### [address] [address] Potassium [Moles/Vol] 4.1 mmol/L Normal 3.5 - 5.3 [facility] Comment on above: Performed By: #### C MP #### [address] [address] Protein [Mass/Vol] 7.6 g/dL Normal 6.4 - 8.2 [facility] Comment on above: Performed By: #### C MP #### [id number] [place] [address] Sodium [Moles/Vol] 138 mmol/L Normal 136 - 145 [facility] Comment on above: Performed By: #### C MP #### [address] [address] Urea nitrogen [Mass/Vol] 10 mg/dL Normal 6 - 23 [facility] Comment on above: Performed By: #### C MP #### [address] [address] Complete Blood Count + Diffe rentialon 03-14-2022 Basophils/100 WBC (Bld) 0.8 % 0.0 - 2.0 [facility] 205 DO Work Phone: Erythrocyte distribution width (RBC) [Ratio] 14.0 % See Below [facility] 205 DO Work Phone: Comment on above: Reference Range: 11. 5 - 14.5 Hematocrit (Bld) [Volume fraction] 41.2 % See Below [facility] 205 DO Work Phone: Comment on above: Reference Range: 36. 0 - 46.0 Hemoglobin (Bld) [Mass/Vol] 13.1 g/dL See Below [facility] 205 DO Work Phone: Comment on above: Reference Range: 12. 0 - 16.0 Lymphocytes/100 WBC (Bld) 36.1 % See Below [facility] 205 DO Work Phone: Comment on above: Reference Range: 13. 0 - 44.0 MCHC (RBC) [Mass/Vol] 31.8 g/dL below low threshold See Below [facility] 205 DO Work Phone: Comment on above: Reference Range: 32. 0 - 36.0 MCV (RBC) [Entitic vol] 78 fL below lo w threshold 80 - 100 [facility] 205 DO Work Phone: Monocytes/100 WBC (Bld) 6.2 % 2.0 - 10.0 [facility] 205 DO Work Phone: Neutrophils/100 WBC (Bld) 54.6 % See Below [facility] 205 DO Work Phone: Comment on above: Reference Range: 40. 0 - 80.0 Platelets (Bld) [#/Vol] 325 10*3/uL 150 - 450 [facility] 205 DO Work Phone: RBC (Bld) [#/Vol] 5.30 {x10E12/L} above high threshold See Below [facility] 205 DO Work Phone: Comment on above: Reference Range: 4.0 0 - 5.20 WBC (Bld) [#/Vol] 6.6 10*3/uL 4.4 - 11.3 [facility] 205 DO Work Phone: Complete Blood Count + Differential 0.05 {x10E9/L} See Below [facility] 205 DO Work Phone: Comment on above: Reference Range: 0.0 0 - 0.10 Complete Blood Count + Differential 0.14 {x10E9/L} See Below [facility] 205 DO Work Phone: Comment on above: Reference Range: 0.0 0 - 0.70 Complete Blood Count + Differential 0.41 {x10E9/L} See Below [facility] 205 DO Work Phone: Comment on above: Reference Range: 0.1 0 - 1.00 Complete Blood Count + Differential 2.38 {x10E9/L} See Below [facility] 205 DO Work Phone: Comment on above: Reference Range: 1.2 0 - 4.80 Complete Blood Count + Differential 3.60 {x10E9/L} See Below [facility] 205 DO Work Phone: Comment on above: Reference Range: 1.2 0 - 7.70 Percent differential counts (%) should be interpreted in the context of the absolute cell counts (cells/L). Complete Blood Count + Differential 2.1 % 0.0 - 6.0 [facility] 205 DO Work Phone: Complete Blood Count + Differential 0.2 % 0.0 - 0.9 [facility] 205 DO Work Phone: Comment on above: Immature Granulocyte Count (IG) includes promyelocytes, myelocytes and metamyelocytes but does not include bands. Percent differential counts (%) should be interpreted in the context of the absolute cell counts (cells/L). Ferritin, Serumon 03-14-2022 Ferritin [Mass/Vol] 17 ug/L 8 - 150 [facility] 205 DO Work Phone: HEPATITIS C ABon 03-14-2022 HEPATITIS C AB Non-Reactive Normal NONREACTIVE [facility] Comment on above: Result Comment: Resu lts from patients taking biotin supplements or receiving high-dose biotin therapy should be interpreted with caution due to possible interference with this test. Providers may contact their local laboratory for further information. Performed By: #### H CVAB #### [facility] [address] [place] [address] Lab Specimen Source Normal [facility] Comment on above: Performed By: #### H CVAB #### [facility] [address] [place] [address] Hepatitis C Antibody Teston 03-14-2022 Hepatitis C Antibody Test Non-Reactive See Below [facility] 205 DO Work Phone: Comment on above: SOURCE: Reference Ra juane: NONREACTIVE Results from patients taking biotin supplements or receiving high-dose biotin therapy should be interpreted with caution due to possible interference with this test. Providers may contact their local laboratory for further information. LIPID PANEL (CORONARY RISK 2 )on 03-14-2022 Cholesterol [Mass/Vol] 173 mg/dL Normal 0 - 199 [facility] Comment on above: Result Comment: . AGE [...] dosing. Performed By: #### L IPID #### [address] [address] Cholesterol in HDL [Mass/Vol] 41.0 mg/dL Normal [facility] Comment on above: Result Comment: . AGE VERY LOW LOW NORMAL HIGH 0-19 Y < 35 < 40 40-45 ---- 20-24 Y ---- < 40 >45 ---- >24 Y ---- < 40 40-60 >60 . Performed By: #### L IPID #### [address] [address] Cholesterol in LDL [Mass/Vol] 112 mg/dL Normal 0 - 119 [facility] Comment on above: Result Comment: . NEAR BORD AGE DESIRABLE OPTIMAL HIGH HIGH VERY HIGH 0-19 Y 0 - 109 --- 110-129 >/= 130 ---- 20-24 Y 0 - 119 --- 120-159 >/= 160 ---- >24 Y 0 - 99 100-129 130-159 160-189 >/=190 . Performed By: #### L IPID #### [address] [address] Cholesterol in VLDL [Mass/Vol] 20 mg/dL Normal 0 - 40 [facility] Comment on above: Performed By: #### L IPID #### [address] [address] Cholesterol.total/Annette sterol in HDL [Mass ratio] 4.2 {ratio} Normal [facility] Comment on above: Result Comment: REF VALUES DESIRABLE < 3.4 HIGH RISK > 5.0 Performed By: #### L IPID #### [address] [address] NON-HDL CHOLESTEROL 132 mg/dL Normal 0 - 149 [facility] Comment on above: Result Comment: AGE DESIRABLE BORDERLINE HIGH HIGH VERY HIGH 0-19 Y 0 - 119 120 - 144 >/= 145 >/= 160 20-24 Y 0 - 149 150 - 189 >/= 190 ---- >24 Y 30 MG/DL ABOVE LDL CHOLESTEROL GOAL . Performed By: #### L IPID #### [address] [address] Triglyceride [Mass/Vol] 101 mg/dL Normal 0 - 149 [facility] Comment on above: Result Comment: . [...] dosing. Performed By: #### L IPID #### [address] [address] Laboratory - Chemistry and C hemistry - challengeon 03-14-2022 Albumin BCP dye [Mass/Vol] 4.3 g/dL 3.4 - 5.0 [facility] 205 DO Work Phone: ALP [Catalytic activity/Vol] 83 U/L 33 - 110 [facility] 205 DO Work Phone: ALT With P-5'-P [Catalytic activity/Vol] 17 U/L 7 - 45 [facility] 205 DO Work Phone: Comment on above: Patients treated wit h Sulfasalazine may generate falsely decreased results for ALT. Anion gap [Moles/Vol] 10 mmol/L 10 - 20 [facility] 205 DO Work Phone: AST With P-5'-P [Catalytic activity/Vol] 16 U/L 9 - 39 [facility] 205 DO Work Phone: Bilirubin [Mass/Vol] 0.3 mg/dL 0.0 - 1.2 [facility] 205 DO Work Phone: Calcium [Mass/Vol] 9.6 mg/dL 8.6 - 10.3 [facility] 205 DO Work Phone: Chloride [Moles/Vol] 104 mmol/L 98 - 107 [facility] 205 DO Work Phone: CO2 [Moles/Vol] 28 mmol/L 21 - 32 [facility] 205 DO Work Phone: Creatinine [Mass/Vol] 0.75 mg/dL See Below [facility] 205 DO Work Phone: Comment on above: Reference Range: 0.5 0 - 1.05 Glucose [Mass/Vol] 104 mg/dL above high threshold 74 - 99 [facility] 205 DO Work Phone: Iron [Mass/Vol] 37 ug/dL 35 - 150 [facility] 205 DO Work Phone: Iron binding capacity [Mass/Vol] 417 ug/dL 240 - 445 [facility] 205 DO Work Phone: Potassium [Moles/Vol] 4.1 mmol/L 3.5 - 5.3 [facility] 205 DO Work Phone: Protein [Mass/Vol] 7.6 g/dL 6.4 - 8.2 [facility] 205 DO Work Phone: Sodium [Moles/Vol] 138 mmol/L 136 - 145 [facility] 205 DO Work Phone: TSH Qn 0.73 m[IU]/L See Below [facility] 205 DO Work Phone: Comment on above: Reference Range: 0.4 4 - 3.98 TSH testing is performed using different testing methodology at [facility] than at other [facility]. Direct result comparisons should only be made within the same method. Urea nitrogen [Mass/Vol] 10 mg/dL 6 - 23 [facility] 205 DO Work Phone: Lipid Panelon 03-14-2022 Cholesterol [Mass/Vol] 173 mg/dL 0 - 199 [facility] 205 DO Work Phone: [...] dosing. Cholesterol in HDL [Mass/Vol] 41.0 mg/dL [facility] DO Work Phone: Comment on above: . AGE VERY LOW LOW N ORMAL HIGH 0-19 Y < 35 < 40 40-45 ---- 20-24 Y ---- < 40 >45 ---- >24 Y ---- < 40 40-60 >60. Cholesterol in LDL [Mass/Vol] 112 mg/dL 0 - 119 [place] [address] DO Work Phone: Comment on above: . NEAR BORD AGE GERRI RABLE OPTIMAL HIGH HIGH VERY HIGH 0-19 Y 0 - 109 --- 110-129 >/= 130 ---- 20-24 Y 0 - 119 --- 120-159 >/= 160 ---- >24 Y 0 - 99 100-129 130-159 160-189 >/=190. Cholesterol non HDL [Mass/Vol] 132 mg/dL 0 - 149 [place] [address] DO Work Phone: Comment on above: AGE DESIRABLE BORDER LINE HIGH HIGH VERY HIGH 0-19 Y 0 - 119 120 - 144 >/= 145 >/= 160 20-24 Y 0 - 149 150 - 189 >/= 190 ---- >24 Y 30 MG/DL ABOVE LDL CHOLESTEROL GOAL. Cholesterol.total/Annette sterol in HDL [Mass ratio] 4.2 {ratio} [facility] 205 DO Work Phone: Comment on above: REF VALUESDESIRABLE < 3.4HIGH RISK > 5.0 Triglyceride [Mass/Vol] 101 mg/dL 0 - 149 M [facility] 205 DO Work Phone: Comment [...] Lipid Panel 20 mg/dL 0 - 40 [facility] 205 DO Work Phone: No Panel Informationon 03-14 >90 >90 [facility] 205 DO Work Phone: Comment on above: CALCULATIONS OF KATELYN MATED GFR ARE PERFORMED USING THE 2020 CKD-EPI STUDY REFIT EQUATION WITHOUT THE RACE VARIABLE FOR THE IDMS-TRACEABLE CREATININE METHODS.https://jasn.asnjournals.org/content/early// ASN.2973594549 9 % below low threshold 25 - 45 [facility] 205 DO Work Phone: TSH WITH REFLEX TO FREE T4 I F ABNORMALon 03-14-2022 TSH Qn 0.73 m[IU]/L Normal 0.44 - 3.98 [facility] Comment on above: Result Comment: TSH testing is performed using different testing methodology at [facility] than at other [facility]. Direct result comparisons should only be made within the same method. Performed By: #### L IPID #### [address] [address] VITAMIN B12on 03-14-2022 Cobalamin (Vitamin B12) [Mass/Vol] 297 pg/mL Normal 211 - 911 [facility] Comment on above: Performed By: #### V TB12 #### [address] [address] VITAMIN D, 25-HYDROXYon VITAMIN D, 25-HYDROXY 26 ng/mL Abnormal [facility] Comment on above: Result Comment: . DEFICIENCY: < 20 NG/ML INSUFFICIENCY: 20-29 NG/ML SUFFICIENCY: 30-100 NG/ML THIS ASSAY ACCURATELY QUANTIFIES THE SUM OF VITAMIN D3, 25-HYDROXY AND VIT D2,25-HYDROXY. Performed By: #### V TDOH #### [facility] [address] [place] [address] Vitamin B12, Serumon 023 Cobalamin (Vitamin B12) [Mass/Vol] 297 pg/mL 211 - 911 [facility] 205 DO Work Phone: Vitamin D 25-Hydroxyon 03-14 25-hydroxyvitamin D3 [Mass/Vol] 26 ng/mL Abnormal formerly [facility] 205 DO Work Phone: Comment on [...] [facility]; Last Updated By: Futurederm; 03/09/2022 11:41:40 AM Renew: Sertraline HCl - 100 MG Oral Tablet; Take 1 tablet daily Rx By: Jhon Scott; Dispense: 30 Days ; #:30 Tablet; Refill: 1;For: Anxiety; JOYCE = N; Verified Transmission to [facility]; Last Updated By: Futurederm; 03/09/2022 11:41:41 AM Renew: Vyvanse 20 MG Oral Capsule; TAKE 1 CAPSULE Daily Rx By: Jhon Scott; Dispense: 7 Days ; #:7 Capsule; Refill: 0;For: Anxiety; JOYCE = N; Verified Transmission to [facility]; Last Updated By: Futurederm; 03/09/2022 12:31:44 PM Health Maintenance Complete Blood Count + Differential; Status:Resulted - Requires Verification; Done: 14Mar2022 10:50AM Performed:[facility]; Due:07Jun2022;Ordered ; For:Health Maintenance; Ordered By:Jhon Scott; Comprehensive Metabolic Panel; Status:Resulted - Requires Verification; Done: 14Mar2022 10:50AM Performed:[facility]; Due:07Jun2022;Ordered ; For:Health Maintenance; Ordered By:Jhon Scott; Hepatitis C Antibody Test; Status:Resulted - Requires Verification; Done: 14Mar2022 10:50AM Performed:[facility]; Due:07Jun2022;Ordered ; For:Health Maintenance; Ordered By:Jhon Scott; Lipid Panel; Status:Resulted - Requires Verification; Done: 14Mar2022 10:50AM Performed:[facility]; Due:07Jun2022;Ordered ; For:Health Maintenance; Ordered By:Jhon Scott; TSH WITH REFLEX TO FREE T4 IF ABNORMAL; Status:Resulted - Requires Verification; Done: 14Mar2022 10:50AM Performed:[facility]; Due:07Jun2022;Ordered ; For:Health Maintenance; Ordered By:Jhon Scott; Vitamin B12, Serum; Status:Resulted - Requires Verification; Done: 14Mar2022 10:50AM Performed:[facility]; Due:07Jun2022;Ordered ; For:Health Maintenance; Ordered By:Jhon Scott; Vitamin D 25-Hydroxy; Status:Resulted - Requires Verification; Done: 14Mar2022 10:50AM Performed:[facility]; Due:07Jun2022;Ordered ; For:Health Maintenance; Ordered By:Jhon Scott; Health Maintenance (V70.0) (Z00.00) Chief Complaint Pt is here today to get est with new PCP, would like to talk about her medications. History of Present IllnessThis is a 21yo female with pmhx significant for anx/dep who presents today with her to establish and discuss as below. Previous PCP Dinora Sheridan BIOSTATISTICS MANAGER - only saw once. Last labs >1yr ago. Regarding anx/dep, reports chronic struggle. States that she has been on an antidepressant since age 14. Currently managed on Zoloft 100mg qd and Vyvanse 40mg qd. Was initially on Prozac and was transitioned to Zoloft after plateauing on Prozac. Saw prior PCP BIOSTATISTICS MANAGER and was started on Vyvanse - patient believes reasons was binge eating disorder. Was eventually increased to 40mg qd. Noticed that she has more energy when she takes it, but otherwise feels the same. Saw psychiatry (Dr. Soraya Harrington [place]), where Vyvanse was continued. Transition from Zoloft [...] Tobacco use status CPHS a) Yes M [facility] 205 DO Work Phone: Tobacco Screening. Yes [facility] 205 DO Work Phone: ACTHon 02-03-2021 ACTH 10.7 pg/mL Normal 7.2-63.3 [facility] Comment on above: Performed By: #### A [facility] #### [facility] Routine Lab [address] [place], [place] [id number] ACTH [CCL]on 02-03-2021 ACTH 10.7 pg/mL Normal 7.2-63.3 [facility] Comment on above: Result Comment: ACTH Reference Range: 7-10 am: 7.2 - 63.3 pg/mL [address] [address] Gus Sales III, M.D. [id number] Performed By: #### 2 58230 #### [facility],[address] [place], [place] [address] HGB A1C [CCL]on 02-01-2021 Glucose [Mass/Vol] 117 mg/dL Normal [facility] Comment on above: Result Comment: eAG: (Estimated average glucose) is a calculated value from HgbA1c and is electronics parts sales representative of the average blood glucose level in the last 2-3 month period. [facility] [employer] [address] [place] [address] Gus Sales III, M.D. [id number] Performed By: #### 2 36905 #### [facility],[address] [place] [address] HbA1c (Bld) [Mass fraction] 5.7 % High 4.3-5.6 [facility] Comment on above: Result Comment: Amer ican Diabetes Association guidelines indicate that patients with HgbA1c in the range 5.7-6.4% are at increased risk for development of diabetes, and intervention by lifestyle modification may be beneficial. HgbA1c greater or equal to 6.5% is considered diagnostic of diabetes. Performed By: #### 2 52481 #### [facility],[address] [place] [address] Hemoglobin A1con 02-01-2021 Glucose [Mass/Vol] 117 mg/dL Normal [facility] Reference Lab Comment on above: Performed By: #### H BA1C #### [facility] Routine Lab [address] [phone] HbA1c (Bld) [Mass fraction] 5.7 % High 4.3-5.6 [facility] Comment on above: Performed By: #### H BA1C #### [facility] Routine Lab [address] [phone] CMP with eGFRon 01-31-2021 AGE 20 years Normal [facility] Comment on above: Performed By: #### 2 83699 #### [facility],[address] [place] [address] Albumin [Mass/Vol] 3.6 g/dL Normal 3.4 - 5.0 [facility] Comment on above: Performed By: #### 2 48335 #### [facility],[address] [place] [address] Albumin/Globulin [Mass ratio] 0.9 {ratio} Normal 0.9 - 1.6 [facility] Comment on above: Performed By: #### 2 45380 #### [facility],[address] [place] [address] ALK PHOS 112 U/L Normal 46 - 116 [facility] Comment on above: Performed By: #### 2 01053 #### [facility],[address] [place] [address] ALT [Catalytic activity/Vol] 43 U/L Normal 14 - 59 [facility] Comment on above: Performed By: #### 2 45346 #### [facility],[address] [place] [address] Anion gap [Moles/Vol] 15 mmol/L Normal 10 - 20 [facility] Comment on above: Performed By: #### 2 01529 #### [facility],[address] [place], [place] [id number] AST [Catalytic activity/Vol] 23 U/L Normal 13 - 39 [facility] Comment on above: Performed By: #### 2 33526 #### [facility],[address] [place] [address] B/C RATIO 17 ratio Normal 0 - 30 [facility] Comment on above: Performed By: #### 2 32169 #### [facility],[address] [place] [address] Bilirubin [Mass/Vol] 0.2 mg/dL Normal 0.2 - 1.0 [facility] Comment on above: Performed By: #### 2 44928 #### [facility],[address] [place] [address] Calcium [Mass/Vol] 8.9 mg/dL Normal 8.5 - 10.1 [facility] Comment on above: Performed By: #### 2 56077 #### [facility],[address] [place] [address] Chloride [Moles/Vol] 101 mmol/L Normal 98 - 107 [facility] Comment on above: Performed By: #### 2 08236 #### [facility],[address] [place] [address] CMP with eGFR Normal [facility] Comment on above: Result Comment: COMP REHENSIVE METABOLIC PANEL Performed By: #### 2 25816 #### [facility],[address] [place] [address] CO2 [Moles/Vol] 27.6 mmol/L Normal 21.0 - 32.0 [facility] Comment on above: Performed By: #### 2 61191 #### [facility],[address] [place] [address] Creatinine [Mass/Vol] 0.72 mg/dL Normal 0.55 - 1.02 [facility] Comment on above: Performed By: #### 2 94597 #### [facility],[address] [place] [address] GFR/1.73 sq M.predicted among non-blacks MDRD (S/P/Bld) [Vol rate/Area] mL/min/{1.73_m2} Normal 60 - 999 [facility] Comment on above: Performed By: #### 2 39747 #### [facility],[address] [place] [address] Result Comment: ACCO RDING TO THE NATIONAL KIDNEY DISEASE EDUCATION PROGRAM(NKDE), A NORMAL eGFR IS A VALUE GREATER THAN OR EQUAL TO 60 ML/MIN/1.73 SQ METERS. CHRONIC KIDNEY DISEASE: <60mL/MIN/1.73 SQ METERS KIDNEY FAILURE: <15mL/MIN/1.73 SQ METERS THIS TEST SHOULD ONLY BE USED FOR PATIENTS 18 YEARS OF AGE AND OLDER. Globulin (S) [Mass/Vol] 4.2 g/dL High 1.5 - 3.8 [facility] Comment on above: Performed By: #### 2 64808 #### [facility],[address] [place] [address] Glucose [Mass/Vol] 89 mg/dL Normal 74 - 106 [facility] Comment on above: Performed By: #### 2 95885 #### [facility],[address] [place] [address] Potassium [Moles/Vol] 3.6 mmol/L Normal 3.5 - 5.1 [facility] Comment on above: Performed By: #### 2 29195 #### [facility],[address] [place] [address] Protein [Mass/Vol] 7.8 g/dL Normal 6.4 - 8.2 [facility] Comment on above: Performed By: #### 2 96466 #### [facility],[address] [place] [address] Sodium [Moles/Vol] 140 mmol/L Normal 136 - 145 [facility] Comment on above: Performed By: #### 2 55047 #### [facility],[address] [place] [address] Urea nitrogen [Mass/Vol] 12 mg/dL Normal 7 - 18 [facility] Comment on above: Performed By: #### 2 49035 #### [facility],[address] [place] [address] LIPID PROFILEon 01-31-2021 Cholesterol [Mass/Vol] 199 mg/dL Normal 0 - 240 [facility] Comment on above: Performed By: #### 2 97355 #### [facility],[address] [place] [address] Cholesterol in HDL [Mass/Vol] 47 mg/dL Normal 40 - 60 [facility] Comment on above: Performed By: #### 2 16071 #### [facility],[address] [place] [address] Cholesterol in LDL [Mass/Vol] 130 mg/dL High 0 - 129 [facility] Comment on above: Performed By: #### 2 36828 #### [facility],[address] [place] [address] Cholesterol.total/Annette sterol in HDL [Mass ratio] 4.2 {ratio} Normal 0.0 - 5.0 [facility] Comment on above: Performed By: #### 2 88920 #### [facility],[address] [place], [place] [phone] Lipid 1996 panel Normal [facility] Comment on above: Result Comment: LIPI D PROFILE Performed By: #### 2 57970 #### [facility],[address] [place] [address] Triglyceride [Mass/Vol] 110 mg/dL Normal 0 - 150 [facility] Comment on above: Performed By: #### 2 78828 #### [facility],[address] [place] [address] T4-FREE (FREE THYROXINE)on 04-02-2020 Free T4 [Mass/Vol] 0.91 ng/dL Normal 0.76 - 1.46 [facility] Comment on above: Result Comment: P otential of falsely elevated results when biotin concentrations are > 10 ng/mL. Performed By: #### 2 85791 #### [facility],[address] [place] [address] TSHon 01-31-2021 TSH Qn 0.59 m[IU]/L Normal 0.35 - 3.74 [facility] Comment on above: Performed By: #### 2 06303 #### [facility],[address] [place] [address] CNCOon 08-28-2018 CNCO Letter Text Normal [facility] Bact/Cand Vag Grm Ston 08-27 Bact/Cand Vag Grm St Sp. Request/Comment : - Swab Smear Result - BACTERIAL VAGINOSIS RESULT: Stain results indicate mixed morphotypes consistent with transition from normal vaginal erlinda. Few Polymorphonuclear leukocytes Moderate Epithelial cells No Yeast observed Normal [facility] Comment on above: Performed By: #### B VCNSM #### [facility] [address] [place], [place] [address] Trichomonas Prepon 9 Trichomonas Prep Sp. Request/Comment: - Swab Smear Result - Negative for Trichomonas vaginalis antigen This test was developed and its performance characteristics determined by [facility]'s [facility] [place] ([facility]). It has not been cleared or approved by the FDA. RT [facility] is regulated under CLIA as qualified to perform high complexity testing. This test is used for clinical purposes. It should not be regarded as investigational or for research. Normal [facility] Comment on above: Performed By: #### T BETTE #### [facility] [address] [place] [place] [id number] CNOVon 08-26-2018 CNOV Office Visit (WOOB) RADHA BOONE ([id number]) 89 F Date Time Provider Department 08/26/18 10:00 AM YRIS BURR ([facility]) WOOB During your visit today, we recorded [...] external genitalia normal, normal Bartholin's glands, urethra, [place]'s glands, no vulvar lesions, no cervical lesions, [...] Order(s):BACT/CHARISSE VAG GRAM STAIN [SQBVCNSM] Order #: [id number]. #:[id number] GC/CHLAMYDIA DNA DET [SQGCCAMP] Order #: [id number]. #:[id number] TRICHOMONAS PREP [SQTRICHO] Order #: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 End: 03-10-2024 Transcribe Orders Elsa Duran [facility] Comment on above: Epigastric pain (Chelsi albaro Dx) Start: 03-06-2024 End: 03-06-2024 Emergency department patient visit Mumtaz Macrial DO Work Phone: [facility] Comment on above: Nausea and vomiting, unspecified vomiting type (Primary Dx) Start: 01-24-2024 End: 01-24-2024 ambulatory [facility] Start: 01-24-2024 End: 01-24-2024 Office outpatient visit 15 minutes Jhon A Scott DO Work Phone: [facility] Comment on above: Rash (Primary Dx); Anxiety; Depression, major, single episode, mild (CMS-HCC) Start: 11-30-2023 End: 11-30-2023 ambulatory [facility] Start: 09-19-2023 End: 09-19-2023 ambulatory [facility] Start: 09-19-2023 End: 09-19-2023 Office outpatient visit 25 minutes Jhon A Scott DO Work Phone: [facility] Comment on above: Vitamin D deficiency (Primary Dx); Anxiety; Depression, major, single episode, mild (CMS-HCC); Iron deficiency; Bilateral wrist pain Start: 09-11-2023 End: 09-11-2023 ambulatory [facility] Start: 09-11-2023 End: 09-11-2023 Encounter for general adult medical examination without abnormal findings [facility] Start: 06-20-2023 End: 06-20-2023 Office outpatient visit 15 minutes Jhon A Scott DO Work Phone: [facility] Comment on above: Routine general medi rk examination at a health care facility (Primary Dx); Anxiety; Depression, major, single episode, mild (CMS/HCC); Class 3 severe obesity due to excess calories with serious comorbidity and body mass index (BMI) of 40.0 to 44.9 in adult (CMS/HCC) Start: 06-20-2023 End: 06-20-2023 Patient encounter status Jhon A Triblio Work Phone: [facility] Work Phone: Start: 06-20-2023 End: 06-20-2023 ambulatory [facility] Start: 06-20-2023 End: 06-20-2023 Encounter for general adult medical examination without abnormal findings [facility] Start: 05-15-2023 End: 05-15-2023 Office outpatient visit 15 minutes Jhon A Scott DO Work Phone: [facility] Comment on above: Class 3 severe obesi ty due to excess calories with serious comorbidity and body mass index (BMI) of 40.0 to 44.9 in adult (CMS/HCC) (Primary Dx); Anxiety; Depression, major, single episode, mild (CMS/HCC) Start: 05-15-2023 End: 05-15-2023 ambulatory [facility] Start: 03-20-2023 End: 03-20-2023 Emergency department patient visit PHYSICIAN [facility] Start: 01-16-2023 End: 01-16-2023 Office outpatient visit 15 minutes Jhon A Scott DO Work Phone: [facility] Comment on above: Depression, major, s dian episode, mild (CMS/HCC) (Primary Dx); Anxiety Start: 11-14-2022 End: 11-14-2022 Office outpatient visit 15 minutes Jhon A Scott DO Work Phone: [facility] Comment on above: Anxiety; Depression, major, single episode, mild (CMS/HCC) Start: 08-15-2022 End: 08-15-2022 Office outpatient visit 15 minutes Jhon A Scott DO Work Phone: [facility] Comment on above: Anxiety; Depression, major, single episode, mild (CMS/HCC) Start: 07-18-2022 End: 07-18-2022 Office outpatient visit 15 minutes Jhon A Scott DO Work Phone: [facility] Comment on above: Anxiety; Depression, major, single episode, mild (CMS/HCC) Start: 06-02-2022 End: 06-02-2022 Office outpatient visit 25 minutes Jhon A Scott DO Work Phone: [facility] Comment on above: Anxiety (Primary Dx) ; Depression, major, single episode, mild (CMS/HCC); Vitamin D deficiency; Iron deficiency Start: 03-23-2022 Office outpatient visit 25 minutes Jhon A Scott Work Phone: [facility] 205 DO Work Phone: Start: 03-23-2022 Patient encounter procedure Jhon A Scott Work Phone: [facility] 205 DO Work Phone: Start: 03-23-2022 ambulatory DO JHON SCOTT Facili ty:[id number] Start: 03-09-2022 ambulatory DO JHON SCOTT Facili ty:[id number] Start: 01-31-2021 End: 01-31-2021 [facility] Start: 10-09-2017 End: 12-24-2017 Patient encounter procedure Merle Crouch Facility:[facility] Start: 10-09-2017 Patient encounter Facil ity:[id number] Start: 07-04-2017 End: 07-04-2017 Emergency department patient visit [facility] Procedures Date Procedure Procedure Detail Performing Clinician [...] HCV Quant by PCR testing - HCVPCR #[id number] Non Reactive: < 0.8 Equivocal: >/= 0.8 [...] Ct abdomen & pelvis w/contrast material Arianne PALACIOS-Purveyour Work Phone: Start: 03-06-2024 Urinalysis microscop ic panel - Urine Qualitative by Automated Arianne PALACIOS-Purveyour Work Phone: Start: 03-06-2024 Urine test visual color cmprsn meths Arianne PALACIOS-C Work Phone: Start: 03-06-2024 Urnls dip stick/tabl et reagent auto microscopy Arianne PALACIOS-Purveyour Work Phone: Start: 03-06-2024 EXTRA TUBES Mumtaz [...] section Previous c esarean section Matt Ashley BIOSTATISTICS MANAGER-C H/O: section Previous c esarean section Amada RUSSOM H/O: section Previous c esarean section Matt Ashley BIOSTATISTICS MANAGER-C H/O: section Previous c esarean section Dr. [...] 60+ years (1 - 1-dose 60+ series) [facility] Start: 12-15-2049 Zoster Vaccines (1 of 2) Zoster Vaccines (1 of 2) [facility] Start: 03-12-2030 DTaP/Tdap/Td Vaccines (2 - Td or Tdap) DTaP/Tdap/Td Vaccines (2 - Td or Tdap) [facility] Start: 03-12-2030 Tetanus vaccination Tetanus: Every 10yrs [facility] Start: 09-10-2028 Lipid panel Lipid Panel [facility] Start: 03-14-2027 Lipid panel Lipid Panel [facility] Start: 09-28-2025 Screening for malignant neoplasm of cervix [facility] Start: 10-10-2024 CBC W Auto Differential panel - Blood [facility] Start: 10-10-2024 Measurement of glucose 2 hours after glucose challenge for glucose tolerance test [facility] Start: 10-10-2024 Serologic test for syphilis [facility] Start: 10-10-2024 [facility] Start: 10-05-2024 Nonstress test [facility] Start: 10-05-2024 Obstetric monitoring [facility] Start: 10-05-2024 Vital signs measurements [facility] Start: 10-05-2024 [facility] Start: 10-05-2024 Patient discharge [facility] Start: 09-10-2024 Diabetes mellitus screening Diabetes Screening [facility] Start: 06-13-2024 [facility] Start: 05-20-2024 [facility] Start: 05-20-2024 Bacteria identified in Urine by Culture Urine Culture [facility] Start: 05-20-2024 [facility] Start: 04-28-2024 End: 04-28-2024 Patient encounter procedure 04/28/2024 2:20 PM EST Off ice Visit [facility] [address] [facility] [address] [place] [address] Jhon Scott DO [address] [facility] [address] [place] [address] [facility] Start: 04-08-2024 End: 04-08-2024 Admission to same day surgery center 04/08/2024 10:50 AM EST - 04/08/2024 11:20 AM EST Surgery [facility] [address] [place] [address] Pal Booker MD [address] [place] [address] ESOPHAGOGASTRODUODENOSCOPY [facility] Comment on above: ESOPHAGOGASTRODUODENOSCOPY Start: 04-08-2024 End: 04-08-2024 Esophagogastroduodenoscopy transoral diagnostic ESOPHAGOGASTRODUODENOSCOPY Epigastric pain Nausea 04/08/2024 10:50 AM EST [facility] Start: 04-08-2024 Subsequent hospital visit by physician [facility] Start: 12-26-2023 End: 12-26-2023 Patient encounter procedure 12/26/2023 1:40 PM EDT Off ice Visit [facility] [address] [facility] [address] [place] [address] Jhon Scott DO [address] [facility] [address] [place] [address] [facility] Start: 11-11-2023 COVID-19 Vaccine ( season) COVID-19 Vaccine ( season) [facility] Start: 11-11-2023 Influenza vaccination [facility] Start: 09-19-2023 End: 09-18-2024 25-hydroxyvitamin D3 [Mass/volume] in Serum or Plasma Vitamin D 25-Hydroxy,Total (for eval of Vitamin D levels) Lab Routine Vitamin D deficiency Expected: 09/19/2023 (Approximate), Expires: 09/18/2024 [facility] Work Phone: Comment on above: Expected: 09/19/2023 (Approximate), Expi res: 09/18/2024 Start: 09-19-2023 End: 09-18-2024 CBC W Auto Differential panel - Blood CBC and Auto Differential Lab Routine Iron deficiency Expected: 09/19/2023 (Approximate), Expires: 09/18/2024 [facility] Service Area Work Phone: Comment on above: Expected: 09/19/2023 (Approximate), Expi res: 09/18/2024 Start: 09-19-2023 End: 09-18-2024 Ferritin [Mass/volume] in Serum or Plasma Ferritin Lab Routine Iron deficiency Expected: 09/19/2023 (Approximate), Expires: 09/18/2024 [facility] Work Phone: Comment on above: Expected: 09/19/2023 (Approximate), Expi res: 09/18/2024 Start: 09-19-2023 End: 09-18-2024 Iron and Iron binding capacity panel - Serum or Plasma Iron and TIBC Lab Routine Iron deficiency Expected: 09/19/2023 (Approximate), Expires: 09/18/2024 [facility] Work Phone: Comment on above: Expected: 09/19/2023 (Approximate), Expi res: 09/18/2024 Start: 09-19-2023 End: 09-19-2023 Patient encounter procedure 09/19/2023 1:20 PM EDT Off ice Visit [facility] [address] [place] [address] Jhon Scott DO [address] [facility] [address] [place] [address] [facility] Start: 06-20-2023 End: 06-20-2023 Patient encounter procedure 06/20/2023 2:40 PM EDT Off ice Visit [facility] [address] [facility] [address] [place] [address] Yarely Jhonann-marie Aguila DO [address] [facility] [address] [place] [address] [facility] Start: 06-20-2023 End: 06-19-2024 25-hydroxyvitamin D3 [Mass/volume] in Serum or Plasma Vitamin D 25-Hydroxy,Total (for eval of Vitamin D levels) Lab Routine Routine general medical examination at a health care facility Expected: 06/20/2023 (Approximate), Expires: 06/19/2024 [facility] Work Phone: Comment on above: Expected: 06/20/2023 (Approximate), Expi res: 06/19/2024 Start: 06-20-2023 End: 06-19-2024 CBC W Auto Differential panel - Blood CBC and Auto Differential Lab Routine Routine general medical examination at a health care facility Expected: 06/20/2023 (Approximate), Expires: 06/19/2024 [facility] Service Area Work Phone: Comment on above: Expected: 06/20/2023 (Approximate), Expi res: 06/19/2024 Start: 06-20-2023 End: 06-19-2024 Comprehensive metabolic 2000 panel - Serum or Plasma Comprehensive Metabolic Panel Lab Routine Routine general medical examination at a health care facility Expected: 06/20/2023 (Approximate), Expires: 06/19/2024 [facility] Work Phone: Comment on above: Expected: 06/20/2023 (Approximate), Expi res: 06/19/2024 Start: 06-20-2023 End: 06-19-2024 Ferritin [Mass/volume] in Serum or Plasma Ferritin Lab Routine Routine general medical examination at a health care facility Expected: 06/20/2023 (Approximate), Expires: 06/19/2024 [facility] Work Phone: Comment on above: Expected: 06/20/2023 (Approximate), Expi res: 06/19/2024 Start: 06-20-2023 End: 06-19-2024 Hemoglobin A1c/Hemoglobin.total in Blood Hemoglobin A1C Lab Routine Routine general medical examination at a health care facility Expected: 06/20/2023 (Approximate), Expires: 06/19/2024 [facility] Work Phone: Comment on above: Expected: 06/20/2023 (Approximate), Expi res: 06/19/2024 Start: 06-20-2023 End: 06-19-2024 Iron and Iron binding capacity panel - Serum or Plasma Iron and TIBC Lab Routine Routine general medical examination at a health care facility Expected: 06/20/2023 (Approximate), Expires: 06/19/2024 [facility] Work Phone: Comment on above: Expected: 06/20/2023 (Approximate), Expi res: 06/19/2024 Start: 06-20-2023 End: 06-19-2024 Lipid 1996 panel - Serum or Plasma Lipid Panel Lab Routine Routine general medical examination at a health care facility Expected: 06/20/2023 (Approximate), Expires: 06/19/2024 [facility] Work Phone: Comment on above: Expected: 06/20/2023 (Approximate), Expi res: 06/19/2024 Start: 05-31-2023 Diabetes mellitus screening Diabetes Screening [facility] Start: 05-15-2023 End: 05-15-2023 Patient encounter procedure 05/15/2023 2:00 PM EST Off ice Visit [facility] [address] [facility] [address] [place] [address] Jhon Scott DO [address] [facility] [address] [place] [address] [facility] Start: 02-21-2023 End: 02-21-2023 Patient encounter procedure 02/21/2023 11:00 AM EST Of fice Visit [facility] [address] [phone] Jhon Scott, DO [address] [address] [facility] Start: 11-14-2022 End: 11-14-2022 Patient encounter procedure 11/14/2022 1:20 PM EDT Off ice Visit [facility] [address] [address] Jhon Scott, DO [address] [address] [facility] Start: 11-10-2022 COVID-19 Vaccine ( season) COVID-19 Vaccine () [facility] Start: 11-10-2022 Influenza vaccination [facility] Start: 08-15-2022 End: 08-15-2022 Patient encounter procedure 08/15/2022 1:40 PM EDT Off ice Visit [facility] [address] [address] Jhon Scott, DO [address] [address] [facility] Start: 06-22-2022 EPV, Provider: Jhon Scott, Status: Pen, Time: 2:00 PM EPV, Provider: Jhon Scott, Status: Pen, Time: 2:00 PM [facility] 205 DO Work Phone: Start: 06-16-2022 End: 06-16-2022 Patient encounter procedure 06/16/2022 10:40 AM EDT Of fice Visit [facility] [address] [phone] Jhon Scott DO [address] [facility] [address] [place] [address] [facility] Start: 11-10-2021 Influenza vaccination Influenza Vaccine (#1) [facility] Start: 12-15-2020 Screening for malignant neoplasm of cervix [facility] Start: 07-31-2020 History and physical examination, annual for health maintenance Wellness Visit [facility] Start: 12-15-2018 Hepatitis B Vaccines (1 of 3 - 19+ 3-dose series) Hepatitis B Vaccines (1 of 3 - 19+ 3-dose series) [facility] Start: 12-15-2018 Pneumococcal Vaccine: Ped or At-Risk (1 of 2 - PCV) Pneumococcal Vaccine: Ped or At-Risk (1 of 2 - PCV) [facility] Start: 12-15-2018 Pneumococcal Vaccine: Pediatrics and At-Risk Adult Patients (1 of 2 - PCV) Pneumococcal Vaccine: Pediatrics and At-Risk Adult Patients (1 of 2 - PCV) [facility] Start: 12-15-2017 COVID-19 Vaccine (#1) COVID-19 Vaccine (#1) [facility] Start: 12-15-2017 Hepatitis C screening Hepatitis C Screening [facility] Start: 12-15-2014 HIV screening HIV Screening [facility] Start: 12-15-2014 HPV Vaccines (1 - 3-dose series) HPV Vaccines (1 - 3-dose series) [facility] Start: 12-15-2012 Varicella vaccination Varicella Vaccines (1 of 2 - 13+ 2-dose series) [facility] Start: 2011 Depression screening using PHQ-9 (Patient Health Questionnaire 9) score Depression Screening/Follow-Up (PHQ-2/9) [facility] Start: 12-15-2010 HPV Vaccines (1 - 2-dose series) HPV Vaccines (1 - 2-dose series) [facility] Start: 12-15-2005 Pneumococcal Vaccine: Pediatrics (0 to 5 Years) and At-Risk Patients (6 to 64 Years) (1 of 2 - PCV) Pneumococcal Vaccine: Pediatrics (0 to 5 Years) and At-Risk Patients (6 to 64 Years) (1 of 2 - PCV) [facility] Start: 12-15-2000 MMR Vaccines (1 of 1 - Standard series) MMR Vaccines (1 of 1 - Standard series) [facility] Start: 12-15-2000 Varicella vaccination Varicella Vaccines (1 of 2 - 2-dose childhood series) [facility] Start: 06-15-2000 COVID-19 Vaccine (#1) COVID-19 Vaccine (#1) [facility] Start: 1999 Hepatitis B Vaccines (1 of 3 - 3-dose series) Hepatitis B Vaccines (1 of 3 - 3-dose series) [facility] Start: 1999 HIV screening HIV Screening [facility] Start: 1999 Screening for Chlamydia trachomatis Chlamydia Screening [facility] Start: 1999 Yearly Adult Physical Yearly Adult Physical [facility] End: 03-06-2024 Bacteria identified in Urine by Culture [facility] Work Phone: Comment on above: Once (Lab) for 1 Occurrences starting until 03/06/2024 CBC W Auto Different ial panel - Blood [facility] CBC W Auto Different ial panel - Blood [facility] Drugs identified in Urine by Screen method [facility] Erythrocyte mean cor puscular volume determination [facility] Esophagogastroduoden oscopy transoral diagnostic ESOPHAGOGASTRODUODENOSCOPY Epigastric pain Nausea [facility] End: 03-06-2024 Extra Urine Joshi Tube [facility] Work Phone: Comment on above: Once for 1 Occurrences starting 03/06/20 until 03/06/2024 Hematocrit [Volume F raction] of Blood [facility] Hemoglobin [Mass/vol ume] in Blood [facility] Hemoglobin A1c/Hemoglobin.total in Blood [facility] Hepatitis C antibody measurement [facility] Leukocytes [#/volume] in Blood [facility] Mean corpuscular hem oglobin concentration determination [facility] Mean corpuscular hem oglobin determination [facility] Measurement of gluco se 2 hours after glucose challenge for glucose tolerance test [facility] Neutrophil count [facility] Neutrophil percent differential count [facility] Patient Education [facility] Work Phone: Patient referral [facility] Work Phone: Platelets [#/volume] in Blood [facility] Red blood cell count [facility] Red cell distributio n width determination [facility] Rubella IgG measurement [facility] Serologic test for syphilis [facility] Treponema sp Ab [Pre sence] in Serum [facility] End: 03-06-2024 Urinalysis complete W Reflex Culture panel - Urine [facility] Service Area Work Phone: Comment on above: Once (Lab) for 1 Occurrences starting until 03/06/2024 Urine culture [facility] Immunizations Immunization Date Immunization Notes Care Provider Maikel gao 03-12-2020 tetanus toxoid, reduced diphtheria toxoid, and acellular pertussis vaccine, adsorbed Jhon A Scott Work Phone: [facility] 205 DO Work Phone: Comment on above: Series: 05-23-2018 influenza virus vaccine, unspecified formulation Elsa Duran [facility] Payers Date Payer Category Payer Self-pay 2024 Jeffrey MOSER UE/PREF/HMO/PPO [id number] 2024 Jeffrey rudolph Managed Care [facility] [id number] 2024 Unknown [id number] 2023 Miscellaneous or Other [facility] [id number] [id number] 2022 Unknown [id number] 2022 Private Health Insurance [facility] COMMUNITY PLAN [id number] 2022-Present [address] [place] [address] [id number]. [id number] 2021 Medicaid (Managed Care) [facility] COMMUNITY PLAN [id number]. 2.7.9.270312.275.315 2017 Unknown 2000 Unknown [id number] 2.16.840.1.114276.3.579. 2.651 1999 Unknown [id number] 2.16.840.1.992670.3.579. 2.356 1999 Unknown [id number] 2.16.840.1.218651.3.579. 2.356 1999 Unknown [id number] 2.16.840.1.967265.3.579. 2.1245 1999 Unknown [id number] 2.16.840.1.401864.3.579. 2.1245 1999 Unknown [id number] 2.16.840.1.758059.3.579. 2.1243 1999 Unknown [id number] 2.16.840.1.518910.3.579. 2.1244 1999 Unknown [id number] 2.16.840.1.487023.3.579. 2.1244 1999 Unknown [id number] 2.16.840.1.427562.3.579. 2.1244 1999 Unknown [id number] 2.16.840.1.028275.3.579. 2.1244 1999 Unknown [id number] 2.16.840.1.164589.3.579. 2.902 1999 Unknown [id number] 2.16.840.1.176205.3.579. 2.903 1999 Unknown [id number] 2.16.840.1.520242.3.579. 2.903 1999 Unknown [id number] 2.840.1.336617.3.579. 2.479 1999 Unknown [id number] 2.840.1.480311.3.579. 2.479 1978 Unknown [id number] 2.840.1.103665.3.579. 2.717 Private Health Insurance [id number] Unknown [id number] Unknown [id number] Unknown [id number] Unknown [id number] 2.840.1.165300.3.579. 2.462 Unknown [id number] 2.840.1.578072.3.579. 2.462 Unknown [id number] .840.1.888957.3.579. 2.462 Unknown [id number] .840.1.479957.3.579. 2.462 Unknown [id number] .840.1.195567.3.579. 2.462 Unknown [id number] .840.1.943364.3.579. 2.462 Unknown [id number] .840.1.444329.3.579. 2.462 Unknown [id number] .840.1.031453.3.579. 2.462 Unknown [id number] .840.1.526024.3.579. 2.462 Unknown [id number] 2.840.1.131213.3.579. 2.462 Unknown [id number] 840.1.238021.3.579. 2.462 Unknown [id number] 2.840.1.459046.3.579. 2.462 Unknown [id number] 2.16.840.1.147273.3.579. 2.462 Unknown [id number] 2.16.840.1.932602.3.579. 2.462 Unknown [id number] 2.16.840.1.041197.3.579. 2.462 Unknown [id number] 2.16.840.1.897639.3.579. 2.462 Unknown [id number] 2.16.840.1.500756.3.579. 2.462 Unknown [id number] 2.16.840.1.267275.3.579. 2.462 Unknown [id number] 2.16.840.1.694573.3.579. 2.462 Unknown [id number] 2.16.840.1.759132.3.579. 2.462 Unknown [id number] 2.16.840.1.100819.3.579. 2.462 Unknown [id number] 2.16.840.1.369006.3.579. 2.462 Unknown [id number] 2.16.840.1.275403.3.579. 2.462 Social History Date Type Detail Facility Start: 07-18-2022 End: 04-03-2024 Nicotine dependence due to vaping tobacco product Nicotine dependence due to vaping tobacco product [facility] 205 DO Work Phone: Start: 06-02-2022 End: 06-13-2024 Tobacco smoking status NHIS Ex-smoker [facility] History of tobacco use Current smoker [facility] Work Phone: History of tobacco use Cigarette Smoker [facility] Work Phone: Start: 03-24-2021 End: 06-02-2022 Tobacco use and exposure Smokeless tobacco non-user [facility] Work Phone: Start: 07-18-2022 End: 04-03-2024 Tobacco use panel [facility] Start: 1999 Sex Assigned At Not on file [facility] Work Phone: Start: 05-23-2022 End: 03-06-2024 Exposure to SARS-CoV-2 (event) Not sure [facility] Start: 05-20-2023 End: 04-03-2024 Alcohol intake Ex-drinker (finding) [facility] Work Phone: Start: 03-24-2021 Gender identity Identifies as female gender (finding) [facility] Start: 03-24-2021 Sexual orientation Heterosexual (finding) [facility] Start: 12-28-2019 Vapor Vapor [facility] Start: 05-20-2024 End: 06-24-2024 Sex Female (finding) [facility] Start: 2000 Sex Assigned At Female [facility] Clinical Notes 03-13-2022 to 11-18-2024 Note Date & Type Note Facility 11-18-2024 Progress note [facility] 11-18-2024 Progress note Note Date/Time November 18, 2024 2:31pm [facility] [address], [address] [place] [address] OFFICE VISIT Date of Service: 11/18/24 MR#: [id number] Acct: [id number] Name: RADHA BOONE Rep #: [id number] : 2000 Provider: Dr. Ruel Mercado MD Age/Sex: 23/F Location: [facility] [place] Status: Signed Intake Vital Signs 10/10/24 10:15 11/07/24 10:57 11/18/24 13:55 Height 5 ft 7 in 5 ft 7 in 5 ft 7 in Weight: 291 lb 8 oz BMI 45.6 BP 119/85 H Intake Visit Reasons: 34 WK OB *CSECTION [employer] Dispatcher Required: No Is patient in pain?: No [...] allergies Depression Anxiety Surgical History Previous section [place] teeth extracted Family History Mother Thyroid disorder, Onset Age: 38 Hypothyroid Diabetes GDM with both pregnancies Grandmother Thyroid disorder, Onset Age: 55 Maternal-thyroid nodules benign Diabetes Maternal type 2 Grandmother Diabetes Paternal type 2 Social History adopted: No household members: spouse and children housing: house number of children: 1 current occupational status: unemployed current occupation: [employer] pets and animals: Yes (Avoid litterbox) pets [...] activity do you participate in: none janet/ad[employer] seatbelt use: always do you feel safe at home: Yes 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 Date Name GA/Weeks Outcome Route Bth Weight Gen Labor Lgth Anesthesia Del Locatn Provider FOB 08/06/20 Alyssa 39 live - full term 8#1oz Female spinal [facility] Dr. Enedina Balbuena Delivery Date: 08/06/20 Last [...] MD> Date _ Ana Laura Mercado MD [facility] Signature: Date (if applicable) CC: ~ [facility] Work Phone: [phone] 171-113208-29-2025 Progress [facility] [address] [place] [address], [address] [place] [address] OFFICE VISIT Date of Service: 11/07/24 MR#: [id number] Acct: [id number] Name: RADHA BOONE Rep #: [id number] : 2000 Provider: Dr. Ruel Mercado MD Age/Sex: 23/F Location: [facility] [place] Status: Signed Intake Vital Signs 10/10/24 10:15 10/21/24 09:23 11/07/24 10:57 Height 5 ft 7 in 5 ft 7 in 5 ft 7 in Weight: 282 lb 4 oz 290 lb BMI 44.1 45.4 BP 117/81 H 123/86 H Intake Visit Reasons: 32 WK OB *CSECTION/SM [employer] Dispatcher Required: No Is patient in pain?: No [...] allergies Depression Anxiety Surgical History Previous section [place] teeth extracted Family History Mother Thyroid disorder, Onset Age: 38 Hypothyroid Diabetes GDM with both pregnancies Grandmother Thyroid disorder, Onset Age: 55 Maternal-thyroid nodules benign Diabetes Maternal type 2 Grandmother Diabetes Paternal type 2 Social History adopted: No household members: spouse and children housing: house number of children: 1 current occupational status: unemployed current occupation: [employer] pets and animals: Yes (Avoid litterbox) pets [...] activity do you participate in: none janet/advent: Worship seatbelt use: always do you feel safe at home: Yes 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 Date Name GA/Weeks Outcome Route Bth Weight Infant Gen Labor Lgth Anesthesia Del Locatn Provider FOB 08/06/20 Novaleigh 39 live - full term 8#1oz Female spinal [facility] Dr. Enedina Balbuena Delivery Date: 08/06/20 Last [...] Symptoms of Preeclampsia, Infant Feeding No , [place] Education and Family Medical Leave or Disability [...] MD> Date _ Ana Laura Mercado MD [facility] Signature: Date (if applicable) CC: ~ [facility]08-12-2025 Progress [facility] [address] [place] [address], [address] [place] [address] OFFICE VISIT Date of Service: 10/21/24 MR#: [id number] Acct: [id number] Name: RADHA BOONE Rep #: [id number] : 2000 Provider: Dr. Ruel Mercado MD Age/Sex: 23/F Location: [facility] [place] Status: Signed Intake Vital Signs 08/11/24 10:06 10/10/24 10:15 10/21/24 09:23 Height 5 ft 7 in 5 ft 7 in 5 ft 7 in Weight: 282 lb 4 oz BMI 44.1 BP 117/81 H Intake Visit Reasons: 30 WK OB *CSECTION [employer] Dispatcher Required: No Is patient in pain?: No [...] allergies Depression Anxiety Surgical History Previous section [place] teeth extracted Family History Mother Thyroid disorder, Onset Age: 38 Hypothyroid Diabetes GDM with both pregnancies Grandmother Thyroid disorder, Onset Age: 55 Maternal-thyroid nodules benign Diabetes Maternal type 2 Grandmother Diabetes Paternal type 2 Social History adopted: No household members: spouse and children housing: house number of children: 1 current occupational status: unemployed current occupation: [employer] pets and animals: Yes (Avoid litterbox) pets [...] activity do you participate in: none janet/advent: Worship seatbelt use: always do you feel safe at home: Yes 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 Date Name GA/Weeks Outcome Route Bth Weight Infant Gen Labor Lgth Anesthesia Del Locatn Provider FOB 08/06/20 Alyssa 39 live - full term 8#1oz Female spinal [facility] Dr. Enedina Balbuena Delivery Date: 08/06/20 Last [...] Symptoms of Preeclampsia, Infant Feeding No , [place] Education and Family Medical Leave or Disability [...] SOOD> Date _ Ana Laura Mercado MD [facility] Signature: Date (if applicable) CC: ~ [facility]08-01-2025 Progress [facility] [address] [place] [address], [address] [place] [address] OFFICE VISIT Date of Service: 10/10/24 MR#: [id number] Acct: [id number] Name: RADHA BOONE Rep #: [id number] : 2000 Provider: Dr. Ursula Weldon DO Age/Sex: 23/F Location: [facility] [place] Status: Signed Intake Vital Signs 08/11/24 10:06 10/05/24 14:53 10/10/24 10:14 10/10/24 10:15 Height 5 ft 7 in 5 ft 7 in 5 ft 7 in 5 ft 7 in Weight: 280 lb 2 oz BMI 43.9 BP 107/69 Intake Visit Reasons: 28WK OB/GLUCOSE *CSECTION [employer] Dispatcher Required: No Is patient in pain?: No [...] allergies Depression Anxiety Surgical History Previous section [place] teeth extracted Family History Mother Thyroid disorder, Onset Age: 38 Hypothyroid Diabetes GDM with both pregnancies Grandmother Thyroid disorder, Onset Age: 55 Maternal-thyroid nodules benign Diabetes Maternal type 2 Grandmother Diabetes Paternal type 2 Social History adopted: No household members: spouse and children housing: house number of children: 1 current occupational status: unemployed current occupation: [employer] pets and animals: Yes (Avoid litterbox) pets [...] activity do you participate in: none janet/advent: Worship seatbelt use: always do you feel safe at home: Yes 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 Date Name GA/Weeks Outcome Route Bth Weight Gen Labor Lgth Anesthesia Del Locatn Provider FOB 08/06/20 Revaaleigh 39 live - full term 8#1oz Female spinal [facility] Dr. Enedina Balbuena Delivery Date: 08/06/20 Last [...] Snell Signature: Date (if applicable) CC: ~ [facility]07-27-2025 Radiology Diagnostic study note [facility] Imaging Services [address] [place] [address] OB Limited With Biometrics MR#: [id number] Acct: [id number] Name: RADHA BOONE Rep #: [id number] : 2000 F 23 From: Zeinab Anguiano MD PCP: JHON SCOTT DO Status: REG CLI Study:OB Limited With Biometrics Date of Exam : 10/05/24 Exam# [id number] Ordering Dr: Amada Black CNM PROCEDURE: OB [...] 12/26/24 Biometry results as above. Reading Location: [facility] CC: BUTCH Black; JHON SCOTT DO ~ Teacher Industrial Arts: Signed [facility]07-27-2025 Progress note [facility] Medical Records Department [address] [place] [address] OB Triage Progress Note 10/05/24 1715 MR#: [id number] Acct: [id number] Name: RADHA BOONE ILAN Rep #:[id number] : 2000 23 From: Amada Black CNM PCP: JHON SCOTT DO Status:REG CLI Y DOS: Location: [id number] Progress Notes Date of Service: 10/05/24 Progress Note: Patient presents for triage evaluation secondary to vaginal spotting at 27 weeks. Had one episode of small clot in toilet earlier today. no further bleeding. no ctx. +fm. FHT: Moderate variability reactive no decelerations category I tracing [place]: none Contractions Assessment and plan: spec exam was negative for blood, closed cervix. US pending. Reactive NST, reassuring maternal and status patient discharged to home to follow-up this week in the office.. See problem list details for additional plan information. Charges/Coding Multi Select Codes Visit Charges Office Visit/Consults: 12036 OV L3 Est 20min Urinary/Genital Urinary/Genital CPT Codes: 51728-52 non-stress test Interp Assessment & Plan (1) [...] s CNM> Date _ [facility]if applicable): Date CC: CNM Amada Black; JHON SCOTT DO ~ Signed [facility]07-03-2025 Progress [facility] [address], [address] [place] [address] OFFICE VISIT Date of Service: 09/11/24 MR#: [id number] Acct: [id number] Name: RADHA BOONE Rep #: [id number] : 2000 Provider: Dr. Ruel Mercado MD Age/Sex: 23/F Location: [facility] [place] Status: Signed Intake Vital [...] allergies Depression Anxiety Surgical History Previous section [place] teeth extracted Family History Mother Thyroid disorder, Onset Age: 38 Hypothyroid Diabetes GDM with both pregnancies Grandmother Thyroid disorder, Onset Age: 55 Maternal-thyroid nodules benign Diabetes Maternal type 2 Grandmother Diabetes Paternal type 2 Social History adopted: No household members: spouse and children housing: house number of children: 1 current occupational status: unemployed current occupation: [employer] pets and animals: Yes (Avoid litterbox) pets [...] activity do you participate in: none janet/advent: Worship seatbelt use: always do you feel safe at home: Yes 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 Date Name GA/Weeks Outcome Route Bth Weight Infant Gen Labor Lgth Anesthesia Del Locatn Provider FOB 08/06/20 Novaleigh 39 live - full term 8#1oz Female spinal [facility] Dr. Enedina Balbuena Delivery Date: 08/06/20 Last [...] Doe Signature: Date (if applicable) CC: ~ [facility]05-12-2025 Evaluation note* Diagnosis Onset Date Resolution [...] high-risk acute November 18, 2 025 1:48pm [facility] Work Phone: 1([phone]) [phone] Evaluation note* Diagnosis Onset Date Resolution Status [...] Supervision of high-risk acute November 07 10:53am [facility] Work Phone: 1(639) 286-175604-21-2025 Evaluation note* Diagnosis Onset Date Resolution Status [...] Vaginal bleeding during resolved October 21 9:20am [facility] Work Phone: 1(761) 136-688004-10-2025 Evaluation note* Diagnosis Onset Date Resolution Status [...] bleeding during acute October 10, 2024 9:52am [facility] Work Phone: 1([phone]) 352-267604-04-2025 Discharge summary [facility] Medical Records Department [address] [place] [address] Emergency Department Summary 06/13/24 MR#: [id number] Acct: [id number] Name: RADHA BOONE Rep #:[id number] : 2000 23 From: Rubens Escudero MD [...] in that no dysuria orhematuria. 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 Cloudy Urine pH 6.0 Ur Specific [place] 1.020 Urine Protein Negative Urine Glucose (UA) [...] The study appears within limits. Reading Location: [facility] Obstetrics Ultrasound 06/13/24 18:00 IMPRESSION: Single live intrauterine as above. Reading Location: [facility] Discharge Plan Triage Chief Complaint: Abd [...] (2,000 unit) capsule 50 mcg PO QDAY 417-jtyt-aocjj ac-dha 1 EACH combo pack 1 ea PO DAILY Primary Care Provider: JHON SCOTT Referrals: Ana Laura Mercado MD [Med Staff - Active Staff] - 3-5 Days if not improving Print Language: Paraguayan Disposition Disposition: Home, Self Care What to do if you have Problems For any increased pain, shortness of breath, bleeding, nausea or vomiting, chestpain, or any unexpected problems, contact your Primary Care Provider. Call [facility] ([phone]) or report tothe closest Emergency Room. Call 911 if necessary. 06/13/242057 Cosigner Signature (if applicable): CC: Dr. Ana Laura Mercado MD; JHON SCOTT DO ~ Signed [facility]04-04-2025 Radiology Diagnostic study note [facility] Imaging Services [address] [place], [place] [address] Transvaginal w/Preg US MR#: [id number] Acct: [id number] Name: RADHA BOONE Rep #: [id number] : 2000 F 23 From: Cristian Spear MD PCP: JHON SCOTT DO Status: REG ER Study:Transvaginal w/Preg US Date of Exam: 06/13/24 Exam# [id number] Ordering Dr: Sonal Escudero MD PROCEDURE: TRANSVAGINAL [...] Single live intrauterine as above. Reading Location: [id number] CC: Dr. Rubens Escudero MD; JHON SCOTT DO ~ Teacher Industrial Arts: Signed [facility]04-04-2025 Radiology Diagnostic study note [facility] Imaging Services [address], [place] [address] Kidney and Bladder MR#: [id number] Acct: [id number] Name: RADHA BOONEZABETH Rep #: [id number] : 2000 F 23 From: Cristian Spear MD PCP: JHON SCOTT DO Status: REG ER Study:Kidney and Bladder Date of Exam: 0 06/13/24 Exam# [id number] Ordering Dr: Sonal Escudero MD PROCEDURE: KIDNEY [...] The study appears within limits. Reading Location: [id number] CC: Dr. Rubens Escudero MD; JHON SCOTT DO ~ Teacher Industrial Arts: Signed [facility]04-04-2025 Evaluation note* Diagnosis Onset Date Resolution Status [...] bleeding during acute October 05, 2024 2:15pm [facility] Work Phone: 1([phone]) 311-522604-04-2025 Evaluation note* Diagnosis Onset Date Resolution Status [...] bleeding during acute October 10, 2024 9:52am [facility] Work Phone: 1(243) 690-438304-04-2025 Discharge summary Author Rubens Escudero [facility] Note Date/Time June 13, 2024 8:[address] [facility] Medical Records Department [address] [place] [address] Emergency Department Summary 06/13/24 MR#: [id number] Acct: [id number] Name: RADHA BOONE Rep #:[id number] : 2000 23 From: Rubens Escudero MD [...] changes in that no dysuria or hematuria. 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 Cloudy Urine pH 6.0 Ur Specific [place] 1.020 Urine Protein Negative Urine Glucose (UA) [...] The study appears within limits. Reading Location: [facility] Obstetrics Ultrasound 06/13/24 18:00 IMPRESSION: Single live intrauterine as above. Reading Location: [facility] Discharge Plan Triage Chief Complaint: Abd [...] (2,000 unit) capsule 50 mcg PO QDAY 898-vesv-wrswy ac-dha 1 EACH combo pack 1 ea PO DAILY Primary Care Provider: JHON SCOTT Referrals: Ana Laura Mercado MD [Med Staff - Active Staff] - 3-5 Days if not improving Print Language: Paraguayan Disposition Disposition: Home, Self Care What to do if you have Problems For any increased pain, shortness of breath, bleeding, nausea or vomiting, chestpain, or any unexpected problems, contact your Primary Care Provider. Call [facility] ([phone]) or report to the closest Emergency Room. Call 911 if necessary. 06/13/242057 <Electronically signed by Rubens Escudero MD> Cosigner Signature (if applicable): CC: Dr. Ana Laura Mercado MD; JHON SCOTT DO ~ Signed [facility] Work Phone: 1(941) 385-869003-14-2025 Evaluation note* Diagnosis Onset Date Resolution Status [...] affecting early inactive May 23, 2024 10:46am [facility] Work Phone: 1(295) 420-900403-14-2025 Evaluation note* Diagnosis Onset Date Resolution Status [...] of high-risk acute June 13, 2024 3:47pm [facility] Work Phone: 1(376) 911-770803-14-2025 Evaluation note* Diagnosis Onset Date Resolution Status [...] , antepartum inactive June 19, 2024 2:55pm [facility] Work Phone: 1([phone]) 277-353403-14-2025 Evaluation note* Diagnosis Onset Date Resolution Status [...] high-risk acute August 11, 2024 9 :55am [facility] Work Phone: [phone]) [phone] Evaluation note* Diagnosis Onset Date Resolution Status [...] high-risk acute August 11, 2024 9 :55am [facility] Work Phone: [phone]) [phone] Discharge summary [facility] Medical Records Department [address] [place] [address] Emergency Department Summary 05/20/24 MR#: [id number] Acct: [id number] Name: RADHA BOONE Rep #:[id number] : 2000 23 From: Brody Cleaning DO [...] she does have appointment on Sunday with [facility] however states that she feels [...] Patient denies any abdominal pain or cramping. 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 I called on-call [facility] REPAIR[facility] for [facility] Dr. Freedman who states that the patient [...] (Auto) Neut % (Auto) Lymph % (Auto) [place] % (Auto) Eos % (Auto) Baso % [...] Clear Cancelled Urine pH 7.0 Ur Specific [place] U Specif Grav (Refrac) Urine Protein Urine [...] (Auto) Neut % (Auto) Lymph % (Auto) [place] % (Auto) Eos % (Auto) Baso % [...] Urine Clarity Urine pH Cancelled Ur Specific [place] 1.005 Cancelled U Specif Grav (Refrac) Cancelled [...] (Auto) Neut % (Auto) Lymph % (Auto) [place] % (Auto) Eos % (Auto) Baso % (Auto) Absolute Neuts (auto) Absolute Lymphs (auto) Nucleated RBC % Sodium Potassium Chloride Carbon Dioxide Anion Gap BUN Creatinine Estim Creat Clear Calc Est GFR (MDRD) Non-Af BUN/Creatinine Ratio Glucose Calcium Total Bilirubin AST ALT Alkaline Phosphatase Total Protein Albumin Globulin Albumin/Globulin Ratio HCG, Quant Serum , Qual Urine Color Urine Clarity Urine pH Ur Specific [place] U Specif Grav (Refrac) Urine Protein Urine [...] (Auto) Neut % (Auto) Lymph % (Auto) [place] % (Auto) Eos % (Auto) Baso % (Auto) Absolute Neuts (auto) Absolute Lymphs (auto) Nucleated RBC % Sodium Potassium Chloride Carbon Dioxide Anion Gap BUN Creatinine Estim Creat Clear Calc Est GFR (MDRD) Non-Af BUN/Creatinine Ratio Glucose Calcium Total Bilirubin AST ALT Alkaline Phosphatase Total Protein Albumin Globulin Albumin/Globulin Ratio HCG, Quant Serum , Qual Urine Color Urine Clarity Urine pH Ur Specific [place] U Specif Grav (Refrac) Urine Protein Urine [...] (Auto) Neut % (Auto) Lymph % (Auto) [place] % (Auto) Eos % (Auto) Baso % (Auto) Absolute Neuts (auto) Absolute Lymphs (auto) Nucleated RBC % Sodium Potassium Chloride Carbon Dioxide Anion Gap BUN Creatinine Estim Creat Clear Calc Est GFR (MDRD) Non-Af BUN/Creatinine Ratio Glucose Calcium Total Bilirubin AST ALT Alkaline Phosphatase Total Protein Albumin Globulin Albumin/Globulin Ratio HCG, Quant Serum , Qual Urine Color Urine Clarity Urine pH Ur Specific [place] U Specif Grav (Refrac) Urine Protein Urine [...] (Auto) Neut % (Auto) Lymph % (Auto) [place] % (Auto) Eos % (Auto) Baso % (Auto) Absolute Neuts (auto) Absolute Lymphs (auto) Nucleated RBC % Sodium Potassium Chloride Carbon Dioxide Anion Gap BUN Creatinine Estim Creat Clear Calc Est GFR (MDRD) Non-Af BUN/Creatinine Ratio Glucose Calcium Total Bilirubin AST ALT Alkaline Phosphatase Total Protein Albumin Globulin Albumin/Globulin Ratio HCG, Quant Serum , Qual Urine Color Urine Clarity Urine pH Ur Specific [place] U Specif Grav (Refrac) Urine Protein Urine [...] % (Auto) 57.9 Lymph % (Auto) 30.2 [place] % (Auto) 9.4 Eos % (Auto) 1.8 [...] Globulin 3.0 Albumin/Globulin Ratio 1.3 HCG, Quant 12504 H Serum , Qual Cancelled Urine Color Urine Clarity Urine pH Ur Specific [place] U Specif Grav (Refrac) Urine Protein Urine [...] 5. Additional description as above. Reading Location: [id number] Discharge Plan Triage Chief Complaint: Vag Bld, Preg ED Provider: Brody Cleaning Dx/Rx/DC Orders Clinical Impression: Vaginal bleeding affecting early Prescriptions: No Action escitalopram oxalate [Lexapro] 20 mg tablet 20 mg PO QDAY omeprazole 20 mg capsule,delayed release(DR/EC) 20 mg PO QDAY cholecalciferol (vitamin D3) 50 mcg (2,000 unit) capsule 50 mcg PO QDAY 225-cvbq-rbqdt ac-dha 1 EACH combo pack 1 ea PO DAILY Primary Care Provider: JHON SCOTT Referrals: JHON SCOTT DO [Primary Care Provider] - Activity Restrictions/Additional Instructions: Follow-up with your [facility] REPAIRER in the outpatient setting on Sunday or scheduled appointment. Take your ultrasound results with you to that appointment. No lifting heavy things no exercising no intercourse you are placed on pelvic rest. Return if worsening symptoms or any concerns Print Language: Paraguayan Disposition Disposition: Home, Self Care What to do if you have Problems For any increased pain, shortness of breath, bleeding, nausea or vomiting, chestpain, or any unexpected problems, contact your Primary Care Provider. Call [facility] ([phone]) or report tothe closest Emergency Room. Call 911 if necessary. 05/20/24 1655 Cosigner Signature (if applicable): CC: JHON SCOTT DO ~ Signed [facility]03-11-2025 Radiology Diagnostic study note [facility] Imaging Services [address] [place], [place] [address] Transvaginal w/Preg US MR#: [id number] Acct: [id number] Name: RADHA BOONE Rep #: [id number] : 2000 F 23 From: Marycruz Webb MD PCP: JHON SCOTT DO Status: REG ER Study:Transvaginal w/Preg US Date of Exam: 05/20/24 Exam# [id number] Ordering Dr: Ashley Cleaning DO PROCEDURE: TRANSVAGINAL [...] 25% of the gestational sac surface area. [place]-rump length: 17 mm, corresponding to 8 weeks [...] 5. Additional description as above. Reading Location: [id number] CC: Dr. Brody Cleaning DO; JHON SCOTT DO ~ Teacher Industrial Arts: Signed [facility]03-11-2025 Discharge summary Author Brody Cleaning [facility] Note Date/Time May 20, 2024 4:5 5pm [facility] Medical Records Department [address] [place] [address] Emergency Department Summary 05/20/24 MR#: [id number] Acct: [id number] Name: RADHA BOONE Rep #:[id number] : 2000 23 From: Brody Cleaning DO [...] she does have appointment on Sunday with [facility] however states that she feels [...] Patient denies any abdominal pain or cramping. 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 I called on-call [facility] for [facility] Dr. Freedman who states that the patient [...] (Auto) Neut % (Auto) Lymph % (Auto) [place] % (Auto) Eos % (Auto) Baso % [...] Clear Cancelled Urine pH 7.0 Ur Specific [place] U Specif Grav (Refrac) Urine Protein Urine [...] (Auto) Neut % (Auto) Lymph % (Auto) [place] % (Auto) Eos % (Auto) Baso % [...] Urine Clarity Urine pH Cancelled Ur Specific [place] 1.005 Cancelled U Specif Grav (Refrac) Cancelled [...] (Auto) Neut % (Auto) Lymph % (Auto) [place] % (Auto) Eos % (Auto) Baso % (Auto) Absolute Neuts (auto) Absolute Lymphs (auto) Nucleated RBC % Sodium Potassium Chloride Carbon Dioxide Anion Gap BUN Creatinine Estim Creat Clear Calc Est GFR (MDRD) Non-Af BUN/Creatinine Ratio Glucose Calcium Total Bilirubin AST ALT Alkaline Phosphatase Total Protein Albumin Globulin Albumin/Globulin Ratio HCG, Quant Serum , Qual Urine Color Urine Clarity Urine pH Ur Specific [place] U Specif Grav (Refrac) Urine Protein Urine [...] (Auto) Neut % (Auto) Lymph % (Auto) [place] % (Auto) Eos % (Auto) Baso % (Auto) Absolute Neuts (auto) Absolute Lymphs (auto) Nucleated RBC % Sodium Potassium Chloride Carbon Dioxide Anion Gap BUN Creatinine Estim Creat Clear Calc Est GFR (MDRD) Non-Af BUN/Creatinine Ratio Glucose Calcium Total Bilirubin AST ALT Alkaline Phosphatase Total Protein Albumin Globulin Albumin/Globulin Ratio HCG, Quant Serum , Qual Urine Color Urine Clarity Urine pH Ur Specific [place] U Specif Grav (Refrac) Urine Protein Urine [...] (Auto) Neut % (Auto) Lymph % (Auto) [place] % (Auto) Eos % (Auto) Baso % (Auto) Absolute Neuts (auto) Absolute Lymphs (auto) Nucleated RBC % Sodium Potassium Chloride Carbon Dioxide Anion Gap BUN Creatinine Estim Creat Clear Calc Est GFR (MDRD) Non-Af BUN/Creatinine Ratio Glucose Calcium Total Bilirubin AST ALT Alkaline Phosphatase Total Protein Albumin Globulin Albumin/Globulin Ratio HCG, Quant Serum , Qual Urine Color Urine Clarity Urine pH Ur Specific [place] U Specif Grav (Refrac) Urine Protein Urine [...] (Auto) Neut % (Auto) Lymph % (Auto) [place] % (Auto) Eos % (Auto) Baso % (Auto) Absolute Neuts (auto) Absolute Lymphs (auto) Nucleated RBC % Sodium Potassium Chloride Carbon Dioxide Anion Gap BUN Creatinine Estim Creat Clear Calc Est GFR (MDRD) Non-Af BUN/Creatinine Ratio Glucose Calcium Total Bilirubin AST ALT Alkaline Phosphatase Total Protein Albumin Globulin Albumin/Globulin Ratio HCG, Quant Serum , Qual Urine Color Urine Clarity Urine pH Ur Specific [place] U Specif Grav (Refrac) Urine Protein Urine [...] % (Auto) 57.9 Lymph % (Auto) 30.2 [place] % (Auto) 9.4 Eos % (Auto) 1.8 [...] Globulin 3.0 Albumin/Globulin Ratio 1.3 HCG, Quant 75354 H Serum , Qual Cancelled Urine Color Urine Clarity Urine pH Ur Specific [place] U Specif Grav (Refrac) Urine Protein Urine [...] 5. Additional description as above. Reading Location: [facility] Discharge Plan Triage Chief Complaint: Vag Bld, Preg ED Provider: Brody Cleaning Dx/Rx/DC Orders Clinical Impression: Vaginal bleeding affecting early Prescriptions: No Action escitalopram oxalate [Lexapro] 20 mg tablet 20 mg PO QDAY omeprazole 20 mg capsule,delayed release(DR/EC) 20 mg PO QDAY cholecalciferol (vitamin D3) 50 mcg (2,000 unit) capsule 50 mcg PO QDAY [id number] ac-dha 1 EACH combo pack 1 ea PO DAILY Primary Care Provider: JHON SCOTT Referrals: JHON SCOTT DO [Primary Care Provider] - Activity Restrictions/Additional Instructions: Follow-up with your LUSTER REPAIRER in the outpatient setting on Sunday or scheduled appointment. Take your ultrasound results with you to that appointment. No lifting heavy things no exercising no intercourse you are placed on pelvic rest. Return if worsening symptoms or any concerns Print Language: Paraguayan Disposition Disposition: Home, Self Care What to do if you have Problems For any increased pain, shortness of breath, bleeding, nausea or vomiting, chestpain, or any unexpected problems, contact your Primary Care Provider. Call [facility] ([phone]) or report to the closest Emergency Room. Call 911 if necessary. 05/20/24 1655 <Electronically signed by Brody Cleaning DO> Beverlyigner Signature (if applicable): CC: JHON SCOTT DO ~ Signed [facility] Work Phone: [phone] NoteMarkail E Manuel 23 y.o. 2000 female [...] contractions) Tachycardia TBI (traumatic brain injury) ([facility]) Family History Problem Relation Age of Onset [...] MD AUTHENTICATED BY PAL BOOKER, ON 04/03/2024 15:15:57[facility]01-23-2025 History of Present illness Narrative* Pal Booker [...] contractions) Tachycardia TBI (traumatic brain injury) ([facility]) Family History Problem Relation Age of Onset [...] omeprazole. Pal Booker MD documented in this [id number] Evaluation + Plan note* Assessment & Plan Note - Jhon Scott DO - 01/27/2024 7:37 PM EST Associated Problem(s): Anxiety Recently exacerbated due to life stressors, but starting to improve. We reviewed options for medication/dose adjustment. Using shared decision making, we decided to continue today without change. Continue Lexapro 10mg every day and Buspar 5mg bid. Return precautions reviewed. [facility] Work Phone: [phone] Miscellaneous Notes* Assessment & Plan Note - [...] antifungal. Return precautions reviewed. [facility] Work Phone: [phone] Evaluation + Plan note* Assessment & Plan Note - Jhon Scott DO - 01/27/2024 7:36 PM ESTAssociated Problem(s): Depression, major, single episode, mild (CMS-HCC) Continue Lexapro and Buspar. [facility] Work Phone: [phone] Evaluation + Plan note* Assessment & Plan Note - Jhon Scott DO - 01/27/2024 7:36 PM ESTAssociated Problem(s): Rash Consider contact dermatitis vs fungal etiology. We will trial topical steroid. Medication dosing and side effects reviewed. If no better in 2wk, will plan to try topical antifungal. Return precautions reviewed. [facility] Work Phone: [phone] History of Present illness Narrative* Jhon Scott [...] recheck, sooner if needed. documented in this [facility] Work Phone: [phone] 341-751007-10-2024 Evaluation + Plan note* Assessment & Plan [...] as needed until . Return precautions reviewed. [facility] Work Phone: [phone] Miscellaneous Notes* Assessment & Plan Note - [...] ready. Will continue Lexapro. [facility] Work Phone: [phone] Evaluation + Plan note* Assessment & Plan Note - Jhon Scott DO - 09/19/2023 9:26 PM EDTAssociated Problem(s): Vitamin D deficiency Will replace with 2000iu every day. Repeat level prior to next eval. [facility] Work Phone: [phone] 119-387907-10-2024 Evaluation + Plan note* Assessment & Plan Note - Jhon Scott DO - 09/19/2023 9:26 PM EDTAssociated Problem(s): Iron deficiency We reviewed iron studies. Recommend oral supplementation. She prefers to purchase her own supplement otc as it has been easier on her stomach. Will repeat labs prior to next appt. [facility] Work Phone: [phone] Evaluation + Plan note* Assessment & Plan Note - Jhon Scott DO - 09/19/2023 9:25 PM EDTAssociated Problem(s): Depression, major, single episode, mild (CMS-HCC) Continue Lexapro. Planning to wean Wellbutrin. [facility] Work Phone: [phone] Evaluation + Plan note* Assessment & Plan Note - Jhon Scott DO - 09/19/2023 9:25 PM EDTAssociated Problem(s): Anxiety Well-controlled on current mediation regimen. We discussed Wellbutrin wean. She will let us know when she is ready. Will continue Lexapro. [facility] Work Phone: [phone] History of Present illness Narrative* Jhon Scott [...] recheck, sooner if needed. [facility] Work Phone: [phone] Evaluation + Plan note* Assessment & Plan Note - Jhon Scott DO - 06/20/2023 8:57 PM EDTAssociated Problem(s): Class 3 severe obesity due to excess calories with serious comorbidity and aleisha dy mass index (BMI) of 40.0 to 44.9 in adult (CMS/[facility]) Unable to tolerate Adipex. [facility] Work Phone: [phone] Miscellaneous Notes* Assessment & Plan Note - Jhon Scott DO - 06/20/2023 8:57 PM EDTAssociated Problem(s): Class 3 severe obesity due to excess calories with serious comorbidity and body mass index (BMI) of 40.0 to 44.9 in adult (CMS/[facility]) Unable to tolerate Adipex. * Assessment & Plan Note - Jhon Scott DO - 06/20/2023 8:56 PM EDT Associated Problem(s): Depression, major, single episode, mild (CMS/[facility]) Continue Lexapro/Wellbutrin. * Assessment & Plan Note [...] counseling. Return precautions reviewed. [facility] Work Phone: [phone] Evaluation + Plan note* Assessment & Plan Note - Jhon Scott DO - 06/20/2023 8:56 PM EDTAssociated Problem(s): Depression, major, single episode, mild (CMS/HCC) Continue Lexapro/Wellbutrin. [facility] Work Phone: [phone] Evaluation + Plan note* Assessment & Plan [...] she has restarted counseling. Return precautions reviewed. [facility] Work Phone: [phone] History of Present illness Narrative* Jhon Sctot DO - 06/20/2023 2:40 PM EDT Subjective [...] Visit ICD-10-CM Depression, major, single episode, mild ([facility]) F32.0 Continue Lexapro/Wellbutrin. Relevant Medications buPROPion XL (Wellbutrin XL) 300 mg 24 hr tablet Other Relevant Orders Follow Up In Primary Care - Established Class 3 severe obesity due to excess calories with serious comorbidity and body mass index (BMI) of40.0 to 44.9 in adult (CMS/[facility]) E66.01, Z68.41 Unable to tolerate Adipex. Relevant [...] Labs prior to appt. documented in [facility]Cl[facility] Work Phone: [phone] Evaluation + Plan note* Assessment & Plan Note - Jhon Scott DO - 05/20/2023 12:46 AM ESTAssociated Problem(s): Class 3 severe obesity due to excess calories with serious comorbidity and aleisha dy mass index (BMI) of 40.0 to 44.9 in adult ([facility]) Dietary modifications and recommendation for 150 minutes [...] prescribed this medication based on documented diagnosis. [facility] Work Phone: [phone]) 339-667403-10-2024 Miscellaneous Notes* Assessment & Plan Note - Jhon Scott DO - 05/20/2023 12:46 AM ESTAssociated Problem(s): Class 3 severe obesity due to excess calories with serious comorbidity and body mass index (BMI) of 40.0 to 44.9 in adult ([facility]) Dietary modifications and recommendation for 150 minutes [...] time. We will address. documented in this encounterCl[facility] Work Phone: [phone] Evaluation + Plan note* Assessment & Plan Note - Jhon Scott DO - 05/20/2023 12:45 AM ESTAssociated Problem(s): Depression, major, single episode, mild (CMS/HCC) Exacerbated. [facility] Work Phone: [phone] Evaluation + Plan note* Assessment & Plan Note - Jhon Scott DO - 05/20/2023 12:45 AM ESTAssociated Problem(s): Anxiety Exacerbated largely due to her struggle with her weight at this time. We will address. [facility] Work Phone: [phone] History of Present illness Narrative* Jhon Scott DO - 05/15/2023 2:00 PM EST Subjective Patient ID: Radha Jackson is a 22 y.o. female who presents for 6 month check HPI Anx/dep - exacerbated over the past 3wks, new car broke down, grandma unfortunately passed last weekend, business is stressful, she restarted [facility] in [place], first visit was today,tried Buspar but causes [...] Visit ICD-10-CM Depression, major, single episode, mild ([facility]) F32.0 Exacerbated. Relevant Orders Follow Up In [...] recheck, sooner if needed. documented in this [facility] Work Phone: [phone] Evaluation + Plan note* Assessment & Plan Note - Jhon Scott DO - 01/16/2023 12:24 PM ESTAssociated Problem(s): Anxiety Wellbutrin increase. [facility] Work Phone: [phone] Evaluation + Plan note* Assessment & Plan [...] recheck, sooner if needed. Return precautions reviewed. [facility] Work Phone: [phone] Miscellaneous Notes* Assessment & Plan Note - [...] needed. Return precautions reviewed. documented in this [facility] Work Phone: [phone] History of Present illness Narrative* Jhon Scott [...] Anxiety F41.9 Wellbutrin increase. documented in this encounterCl[facility] Work Phone: [phone] Evaluation + Plan note* Assessment & Plan Note - Jhon Scott DO - 11/14/2022 9:56 PM EDTAssociated Problem(s): Depression, major, single episode, mild (CMS/HCC) No changes today. Doing well. [facility] Work Phone: [phone]) 473-588409-05-2023 Evaluation + Plan note* Assessment & Plan Note - Jhon Scott DO - 11/14/2022 9:56 PM EDTAssociated Problem(s): Anxiety Doing well on current regimen. Will continue. Follow up in 6mo for recheck, sooner if needed. [facility] Work Phone: [phone] Miscellaneous Notes* Assessment & Plan Note - Jhon Scott DO - 11/14/2022 9:56 PM EDTAssociated Problem(s): Depression, major, single episode, mild (CMS/HCC) No changes today. Doing well. * Assessment & Plan Note - Jhon Scott DO - 11/14/2022 9:56 PM EDT Associated Problem(s): Anxiety Doing well on current regimen. Will continue. Follow up in 6mo for recheck, sooner if needed. documented in [facility] Work Phone: [phone] History of Present illness Narrative* Jhon Scott [...] Primary Care - Established documented in [facility] encounterCl[facility] Work Phone: [phone] Evaluation + Plan note* Assessment & Plan Note - Jhon Scott DO - 08/15/2022 9:37 PM EDTAssociated Problem(s): Anxiety Wellbutrin increase. [facility] Work Phone: [phone] Evaluation + Plan note* Assessment & Plan Note - Jhon Scott DO - 08/15/2022 9:37 PM EDTAssociated Problem(s): Depression, major, single episode, mild (CMS/HCC) Doing well with addition of Wellbutrin. Using shared decision making, we decided to increase dose to 300mg every day. Medication dosing and side effects reviewed. Follow up in 3mo for recheck, soonerif needed. [facility] Work Phone: [phone] Miscellaneous Notes* Assessment & Plan Note - [...] for recheck, soonerif needed. documented in this encounterUn[facility] Work Phone: [phone] History of Present illness Narrative* Jhon Scott [...] Up In Primary Care documented in this encounterCl[facility] Work Phone: [phone] Evaluation + Plan note* Assessment & Plan Note - Jhon Scott DO - 07/18/2022 9:25 PM EDTAssociated Problem(s): Anxiety Wellbutrin trial. [facility] Work Phone: [phone] Evaluation + Plan note* Assessment & Plan Note - Jhon Scott DO - 07/18/2022 9:25 PM EDTAssociated Problem(s): Depression, major, single episode, mild (CMS/HCC) Anxiety well-controlled with Lexapro. Will continue. Struggling with depressive symptoms. Reviewed options. Using shared decision making, we decided to trial adding Wellbutrin. Medication dosing and side effects reviewed. Follow up in 1mo for recheck, sooner if needed. [facility] Work Phone: [phone] 630-589805-09-2023 Miscellaneous Notes* Assessment & Plan Note - [...] recheck, sooner if needed. documented in this [facility] Work Phone: [phone] History of Present illness Narrative* Jhon Scott [...] Up In Primary Care documented in this encounterCl[facility] Work Phone: [phone] 144-887003-24-2023 Evaluation + Plan note* Assessment & Plan Note - Jhon Scott DO - 06/02/2022 2:42 PM EDTAssociated Problem(s): Iron deficiency Improved with otc supplement. Will continue to monitor. [facility] Work Phone: [phone] Evaluation + Plan note* Assessment & Plan Note - Jhon Scott DO - 06/02/2022 2:42 PM EDTAssociated Problem(s): Vitamin D deficiency No better with 2000iu daily. Will proceed with high dose 50,000iu qwk x8wk. [facility] Work Phone: [phone] Miscellaneous Notes* Assessment & Plan Note - [...] mild (CMS/HCC) Lexapro trial documented in this [facility] Work Phone: [phone] 488-763403-24-2023 Evaluation + Plan note* Assessment & Plan [...] recheck, sooner if needed. Return precautions reviewed. 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 205 DO Work Phone: [phone] History of Present illness Narrative* Patient presents [...] seems to help (full tablet caused grogginess). [facility] 205 DO Work Phone: Evaluation note* Diagnosis Anxiety Anxiety state, unspecified Depression, major, single episode, mild (CMS/HCC) documented in this encounter [facility] Work Phone: Evaluation note* Diagnosis Anxiety Anxiety state, unspecified Depression, major, single episode, mild (CMS/HCC) documented in this encounter [facility] Work Phone: Evaluation note* Diagnosis Anxiety Anxiety state, unspecified Depression, major, single episode, mild (CMS/HCC) documented in this encounter [facility] Work Phone: Evaluation note* Diagnosis Depression, major, single episode, mild (CMS/HCC)- Primary Anxiety Anxiety state, unspecified documented in this encounter [facility] Work Phone: Evaluation note* Diagnosis Class 3 severe obesity due to excess calories with serious comorbidity and body mass index (BMI) of 40.0 to 44.9 in adult (CMS/HCC)- Primary Anxiety Anxiety state, unspecified Depression, major, single episode, mild (CMS/HCC) documented in this encounter [facility] Work Phone: Evaluation note* Diagnosis Routine general medical examination at a health care facility- Primary Anxiety Anxiety state, unspecified Depression, major, single episode, mild (CMS/HCC) Class 3 severe obesity due to excess calories with serious comorbidity and body mass index (BMI) of 40.0 to 44.9 in adult (CMS/HCC) documented in this encounter [facility] Work Phone: Evaluation note* Diagnosis Anxiety- [...] episode, mild (CMS-HCC) documented in this encounter [facility] Work Phone: Evaluation note* Diagnosis Anxiety- [...] Bilateral wrist pain documented in this encounter [facility] Work Phone: Evaluation note* Diagnosis Anxiety- Primary Anxiety state, unspecified Depression, major, single episode, mild (CMS/HCC) Vitamin D deficiency Iron deficiency Disorders of iron metabolism documented in this encounter [facility] Work Phone: Evaluation note* Diagnosis Anxiety- [...] vomiting type- Primary documented in this encounter [facility] Work Phone: Evaluation note* Diagnosis Epigastric pain- Primary Abdominal pain, epigastric [facility]* Diagnosis Epigastric pain- Primary Abdominal pain, epigastric Nausea Nausea alone [facility] Diagnosis Epigastric pain- Primary Abdominal pain, epigastric Nausea Nausea alone Epigastric pain Abdominal pain, epigastric Nausea Nausea alone [facility]* Diagnosis Epigastric pain Abdominal pain, epigastric Epigastric pain Abdominal pain, epigastric Nausea Nausea alone documented [facility] noteNo assessment information availableWDayton VA Medical Center Work Phone: Hospital Discharge instructions* Attachments The following attachments cannot be sent through Care Everywhere. * Nausea and Vomiting, Adult ED (Paraguayan) documented [facility]Cl[facility] Work Phone: Hospital Discharge instructions Additional Instructions Follow-up with your LUSTER REPAIRER in the outpatient setting on Sunday or scheduled appointment. Take your ultrasound results with you to that appointment. No lifting heavy things no exercising no intercourse you are placed on pelvic rest. Return if worsening symptoms or any concernsWDayton [facility] Medical Center Work Phone: Progress note Author Ana Laura Mercado [facility] Note Date/Time September 11, 2024 11:16 am [facility] [address], [address] [place] [address] OFFICE VISIT Date of Service: 09/11/24 MR#: [id number] Acct: [id number] Name: RADHA BOONE Rep #: [id number] : 2000 Provider: Dr. Ruel Mercado MD Age/Sex: 23/F Location: [facility] [place] Status: Signed Intake Vital [...] allergies Depression Anxiety Surgical History Previous section [place] teeth extracted Family History Mother Thyroid disorder, Onset Age: 38 Hypothyroid Diabetes GDM with both pregnancies Grandmother Thyroid disorder, Onset Age: 55 Maternal-thyroid nodules benign Diabetes Maternal type 2 Grandmother Diabetes Paternal type 2 Social History adopted: No household members: spouse and children housing: house number of children: 1 current occupational status: unemployed current occupation: [employer] pets and animals: Yes (Avoid litterbox) pets [...] activity do you participate in: none janet/advent: [employer] seatbelt use: always do you feel safe at home: Yes 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 Date Name GA/Weeks Outcome Route Bth Weight Gen Labor Lgth Anesthesia Del Locatn Provider FOB 08/06/20 Alyssa 39 live - full term 8#1oz Female spinal [facility] Dr. Enedina Balbuena Delivery Date: 08/06/20 Last [...] Cosigner Signature: Date (if applicable) CC: ~ [facility] [employer] Work Phone: Progress note Author Amada Black [facility] Note Date/Time October 05, 2024 5:18 pm [facility] Medical Records Department [address] [address] OB Triage Progress Note 10/05/24 1715 MR#: [id number] Acct: [id number] Name: RADHA BOONE Rep #:[id number] : 2000 23 From: Amada Black CNM PCP: JHON SCOTT DO Status:REG CLI Y DOS: Location: [place] [address] Progress Notes Date of Service: 10/05/24 Progress Note: Patient presents for triage evaluation secondary to vaginal spotting at 27 weeks. Had one episode of small clot in toilet earlier today. no further bleeding. no ctx. +fm. FHT: Moderate variability reactive no decelerations category I tracing [place]: none Contractions Assessment and plan: spec exam was negative for blood, closed cervix. US pending. Reactive NST, reassuring maternal and status patient discharged to home to follow-up this week in the office.. See problem list details for additional plan information. Charges/Coding Multi Select Codes Visit Charges Office Visit/Consults: 54194 OV L3 Est 20min Urinary/Genital Urinary/Genital CPT Codes: [id number] non-stress test Interp Assessment & Plan (1) [...] repeat C/S. RLTCS BS 12/24/24 SM. 10/05/24 7438 <Electronically signed by Amada luke CNM> Date _ Amada Black CNM Cosigner Signature (if applicable): Date CC: BUTCH Black; JHON SCOTT DO ~ Signed [facility] Work Phone: Progress note Author Elissa Quintanilla [facility] Note Date/Time October 10, 2024 11: 04am [facility] [address] [place] [address], [address] [place] [address] OFFICE VISIT Date of Service: 10/10/24 MR#: [id number] Acct: [id number] Name: RADHA BOONE Rep #: [id number] : 2000 Provider: Dr. Ursula Weldon DO Age/Sex: 23/F Location: [facility] [place] Status: Signed Intake Vital Signs 08/11/24 10:06 10/05/24 14:53 10/10/24 10:14 10/10/24 10:15 Height 5 ft 7 in 5 ft 7 in 5 ft 7 in 5 ft 7 in Weight: 280 lb 2 oz BMI 43.9 BP 107/69 Intake Visit Reasons: 28WK OB/GLUCOSE *CSECTION [employer] Dispatcher Required: No Is patient in pain?: No [...] allergies Depression Anxiety Surgical History Previous section [place] teeth extracted Family History Mother Thyroid disorder, Onset Age: 38 Hypothyroid Diabetes GDM with both pregnancies Grandmother Thyroid disorder, Onset Age: 55 Maternal-thyroid nodules benign Diabetes Maternal type 2 Grandmother Diabetes Paternal type 2 Social History adopted: No household members: spouse and children housing: house number of children: 1 current occupational status: unemployed current occupation: [employer] pets and animals: Yes (Avoid litterbox) pets [...] activity do you participate in: none janet/advent: Worship seatbelt use: always do you feel safe at home: Yes 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 Date Name GA/Weeks Outcome Route Bth Weight Infant Gen [facility] 08/[facility]20 [place] 39 live - full term 8#1oz Female spinal [facility] Dr. Enedina Balbuena Delivery Date: 08/06/20 Last [...] Symptoms of Preeclampsia, Infant Feeding No , [employer] Education and Family Medical Leave or Disability [...] Cosigner Signature: Date (if applicable) CC: ~ [facility] Work Phone: Progress note Author Ana Laura Mercado [facility] Note Date/Time October 21, 2024 10 :10am [facility] [address], [address] [place] [address] OFFICE VISIT Date of Service: 10/21/24 MR#: [id number] Acct: [id number] Name: RADHA BOONE Rep #: [id number] : 2000 Provider: Dr. Ruel Mercado MD Age/Sex: 23/F Location: [facility] [place] Status: Signed Intake Vital Signs 08/11/24 10:06 10/10/24 10:15 10/21/24 09:23 Height 5 ft 7 in 5 ft 7 in 5 ft 7 in Weight: 282 lb 4 oz BMI 44.1 BP 117/81 H Intake Visit Reasons: 30 WK OB *CSECTION [employer] Dispatcher Required: No Is patient in pain?: No [...] allergies Depression Anxiety Surgical History Previous section [place] teeth extracted Family History Mother Thyroid disorder, Onset Age: 38 Hypothyroid Diabetes GDM with both pregnancies Grandmother Thyroid disorder, Onset Age: 55 Maternal-thyroid nodules benign Diabetes Maternal type 2 Grandmother Diabetes Paternal type 2 Social History adopted: No household members: spouse and children housing: house number of children: 1 current occupational status: unemployed current occupation: [employer] pets and animals: Yes (Avoid litterbox) pets [...] activity do you participate in: none janet/advent: Worship seatbelt use: always do you feel safe at home: Yes 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 Date Name GA/Weeks Outcome Route Bth Weight Infant Gen Labor Lgth Anesthesia Del Locatn Provider FOB 08/06/20 Nov[place] 39 live - full term 8#1oz Female spinal [facility] Dr. Enedina Balbuena Delivery Date: 08/06/20 Last [...] MD> Date _ Ana Laura Mercado MD [facility] Signature: Date (if applicable) CC: ~ [facility] Work Phone: Progrman note Author Ana Laura Mercado [facility] Note Date/Time November 07, 2024 11 :20am [facility] [address] [place] [address], [address] [place] [address] OFFICE VISIT Date of Service: 11/07/24 MR#: [id number] Acct: [id number] Name: RADHA BOONE Rep #: [id number] : 2000 Provider: Dr. Ruel Mercado MD Age/Sex: 23/F Location: [facility] [place] Status: Signed Intake Vital Signs 10/10/24 10:15 10/21/24 09:23 11/07/24 10:57 Height 5 ft 7 in 5 ft 7 in 5 ft 7 in Weight: 282 lb 4 oz 290 lb BMI 44.1 45.4 BP 117/81 H 123/86 H Intake Visit Reasons: 32 WK OB *CSECTION/ [employer] Dispatcher Required: No Is patient in pain?: No [...] allergies Depression Anxiety Surgical History Previous section [place] teeth extracted Family History Mother Thyroid disorder, Onset Age: 38 Hypothyroid Diabetes GDM with both pregnancies Grandmother Thyroid disorder, Onset Age: 55 Maternal-thyroid nodules benign Diabetes Maternal type 2 Grandmother Diabetes Paternal type 2 Social History adopted: No household members: spouse and children housing: house number of children: 1 current occupational status: unemployed current occupation: [employer] pets and animals: Yes (Avoid litterbox) pets [...] activity do you participate in: none janet/advent: Worship seatbelt use: always do you feel safe at home: Yes 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 Date Name GA/Weeks Outcome Route Bth Weight Gen Labor Lgth Anesthesia Del Locatn Provider FOB 08/06/20 Jenynigh 39 live - full term 8#1oz Female spinal [facility] Dr. Enedina Balbuena Delivery Date: 08/06/20 Last [...] tabs 6RF 11/07/24 1120 <Electronically signed by Ana Laura balderas MD> Date _ Ana Laura Mercado MD Cosigner Signature: Date (if applicable) CC: ~ [facility] Work Phone: Reason for referral (narrative)* Consultation (Routine) - Authorized Specialty Diagnoses / Procedures Referred By Contac t Referred To Contact Primary Care Diagnoses Anxiety Depression, major, single episode, mild (CMS/HCC) Procedures Follow Up In Primary Care Jhon Scott DO [address] [place] [address] Referral ID Status Reason Start Date Expiration Date V isits Requested Visits Authorized [id number] Authorized 07/18/2022 01/14/2023 1 1 [facility] Work Phone: Rekuju for referral (narrative)* Consultation (Routine) - Authorized Specialty Diagnoses / Procedures Referred By Contac t Referred To Contact Primary Care Diagnoses Anxiety Depression, major, single episode, mild (CMS/HCC) Procedures Follow Up In Primary Care Jhon Scott DO [address] [place] [address] Referral ID Status Reason Start Date Expiration Date V isits Requested Visits Authorized [id number] Authorized 08/15/2022 02/11/2023 1 1 [facility] Work Phone: reason for referral (narrative)* Consultation (Routine) - Authorized Specialty Diagnoses / Procedures Referred By Contac t Referred To Contact Primary Care Diagnoses Anxiety Depression, major, single episode, mild (CMS/HCC) Procedures Follow Up In Primary Care - Established Jhon Scott DO [address] [facility] [address] [place] [address] Referral ID Status Reason Start Date Expiration Date V isits Requested Visits Authorized [id number] Authorized 11/14/2022 05/13/2023 1 1 [facility] Work Phone: Rejyyh for referral (narrative)* Consultation (Routine) - Authorized Specialty Diagnoses / Procedures Referred By Contac t Referred To Contact Primary Care Diagnoses Depression, major, single episode, mild (CMS/HCC) Procedures Follow Up In Primary Care - Established Jhon Scott DO [address] [facility] [address] [place] [id number] Referral ID Status Reason Start Date Expiration Date V isits Requested Visits Authorized [id number] Authorized 01/16/2023 01/16/2024 1 1 [facility] Work Phone: reason for referral (narrative)* [...] Primary Care - Established Jhon Scott [address] [place] [address] Referral ID Status Reason Start Date Expiration Date V isits Requested Visits Authorized [id number] Authorized 05/15/2023 05/14/2024 1 1 [facility] Work Phone: reason for referral (narrative)* [...] - Established Marry Scottann-marie Aguila DO [address] [address] Referral ID Status Reason Start Date Expiration Date V isits Requested Visits Authorized [id number] Authorized 06/20/2023 06/19/2024 1 1 [facility] Work Phone: Reason for referral (narrative)* Consultation (Routine) - Authorized Specialty Diagnoses / Procedures Referred By Contac t Referred To Contact Primary Care Diagnoses Anxiety Depression, major, single episode, mild (CMS-HCC) Vitamin D deficiency Iron deficiency Procedures Follow Up In Primary Care - Established Marry Scottann-marie Aguila DO [address] [address] Referral ID Status Reason Start Date Expiration Date V isits Requested Visits Authorized [id number] Authorized 09/19/2023 09/18/2024 1 1 [facility] Work Phone: Rekeob for referral (narrative)* Consultation (Routine) - Authorized Specialty Diagnoses / Procedures Referred By Contac t Referred To Contact Primary Care Diagnoses Anxiety Depression, major, single episode, mild (CMS/HCC) Procedures Follow Up In Primary Care ScottJhon DO [address] [address] Referral ID Status Reason Start Date Expiration Date V isits Requested Visits Authorized [id number] Authorized 06/02/2022 11/29/2022 1 1 [facility] Work Phone: Reason for referral (narrative)No reason for referral [facility]: Reason for visit Narrative* Consultation (Routine) - Authorized Specialty Diagnoses / Procedures Referred By Contac t Referred To Contact Primary Care Diagnoses Anxiety Depression, major, single episode, mild (CMS/HCC) Procedures Follow Up In Primary Care Jhon Scott DO [place] [address] [place] [address] Referral ID Status Reason Start Date Expiration Date V isits Requested Visits Authorized [id number] Authorized 07/18/2022 01/14/2023 1 1 [facility] Work Phone: Reason for visit Narrative* Consultation (Routine) - Authorized Specialty Diagnoses / Procedures Referred By Contac t Referred To Contact Primary Care Diagnoses Anxiety Depression, major, single episode, mild (CMS/HCC) Procedures Follow Up In Primary Care Deion Scottsvitlana Aguila DO [address] [place] [address] Referral ID Status Reason Start Date Expiration Date V isits Requested Visits Authorized [id number] Authorized 08/15/2022 02/11/2023 1 1 [facility] Work Phone: Reason for visit Narrative* Consultation (Routine) - Closed Specialty Diagnoses / Procedures Referred By Contac t Referred To Contact Primary Care Diagnoses Anxiety Depression, major, single episode, mild (CMS/HCC) Procedures Follow Up In Primary Care - Established ScottMarryJhonann-marie Aguila DO [address] [place] [address] Referral ID Status Reason Start Date Expiration Date Visits Re quested Visits Authorized [id number] Closed 11/14/2022 05/13/2023 1 1 [facility] Work Phone: Reason for visit Narrative* [...] Care - Established Jhon Scott, DO [address] [facility] [place] [phone] Referral ID Status Reason Start Date Expiration Date V isits Requested Visits Authorized [id number] Authorized 05/15/2023 05/14/2024 1 1 [facility] Work Phone: reason for visit Narrative* Consultation (Routine) - Authorized Specialty Diagnoses / Procedures Referred By Contac t Referred To Contact Primary Care Diagnoses Anxiety Depression, major, single episode, mild (CMS-HCC) Vitamin D deficiency Iron deficiency Procedures Follow Up In Primary Care - Established Jhon Scott, DO [address] [facility] [place] [id number] Phone: tel: fax: Referral ID Status Reason Start Date Expiration Date V isits Requested Visits Authorized [id number] Authorized 09/19/2023 09/18/2024 1 1 [facility] Work Phone: Redyyq for visit Narrative* Consultation (Routine) - Authorized Specialty Diagnoses / Procedures Referred By Contac t Referred To Contact Primary Care Diagnoses Anxiety Depression, major, single episode, mild (CMS-HCC) Class 3 severe obesity due to excess calories with serious comorbidity and body mass index (BMI) of 40.0 to 44.9 in adult (Multi) Procedures Follow Up In Primary Care - Established Jhon Scott, DO [address] [facility] [place] [id number] Referral ID Status Reason Start Date Expiration Date V isits Requested Visits Authorized [id number] Authorized 06/20/2023 06/19/2024 1 1 [facility] Work Phone: reason for visit Narrative* Evaluate and Treat (Routine) - Pending Review Specialty Diagnoses / Procedures Referred By Contac t Referred To Contact Gastroenterology Diagnoses Epigastric pain Jhon Scott [address] [facility] [address] [place] [phone] Phone: tel: fax: Pal Booker MD [address] [place] [address] Phone: tel: fax: Referral ID Status Reason Start Date Expiration Date Visits Requested Visits Authorized [id number] Pending Review Specialty Services Required/Pat ient's Best Interest 03/10/2025 1 1 [facility] Summary Purpose Family History No Family [...] No May 20, 2024 12:36pm Power of Flyer Repairer No May 20 12:36pm Advance Directive Response Recorded Date/ Time Living Will No May 20, 2024 12:36pm Do you have a Healthcare Power of Flyer Repairer? No May 20, 2024 12:36pm Advance Directive Response Recorded Date/ Time Living Will No May 20, 2024 12:36pm Do you have a Healthcare Power of Flyer Repairer? No May 20, 2024 12:36pm Living Will No June 13, 2024 4:30pm Do you have a Healthcare Power of Flyer Repairer? No June 13, 2024 4:30pm Advance Directive Response Recorded Date/ Time Living Will No June 13, 2024 4:30pm Do you have a Healthcare Power of Flyer Repairer? No June 13, 2024 4:30pm Chief Complaint [...] 18, 2024 1:48pm Premature ventricular contractions [facility] 2024 1:48pm Previous section November 18, 2024 1:48pm Supervision of high-risk [facility] 2024 1:48pm Additional Source Comments INFORMATION SOURCE (unrecogn ized section and content) DATE CREATED AUTHOR 08/30/2017 [facility] DATE CREATED AUTHOR AUTHOR'S ORGANIZ ATION 11/03/2017 [facility] DATE CREATED AUTHOR AUTHOR'S ORGANIZ ATION 02/24/2018 [facility] DATE CREATED AUTHOR AUTHOR'S ORGANIZ ATION 09/02/2018 [facility] DATE CREATED AUTHOR AUTHOR'S ORGANIZ ATION 02/04/2021 [facility] DATE CREATED AUTHOR AUTHOR'S ORGANIZ ATION 02/04/2021 [facility] DATE CREATED AUTHOR AUTHOR'S ORGANIZ ATION 03/25/2022 [facility] DATE CREATED AUTHOR AUTHOR'S ORGANIZ ATION 05/30/2022 [facility] DATE CREATED AUTHOR AUTHOR'S ORGANIZ ATION 12/06/2023 [facility] DATE CREATED AUTHOR AUTHOR'S ORGANIZ ATION 03/08/2024 [facility] DATE CREATED AUTHOR AUTHOR'S ORGANIZ ATION 03/09/2024 [facility] DATE CREATED AUTHOR AUTHOR'S ORGANIZ ATION 03/21/2024 [facility] DATE CREATED AUTHOR AUTHOR'S ORGANIZ ATION 04/05/2024 [facility] DATE CREATED AUTHOR AUTHOR'S ORGANIZ ATION 04/10/2024 [facility] DATE CREATED AUTHOR AUTHOR'S ORGANIZ ATION 08/20/2024 [facility] DATE CREATED AUTHOR AUTHOR'S ORGANIZ ATION 11/29/[address] [place] [address] Reason for Visit (unrecogniz ed section and content) Reason Comments Anxiety Depression Vitamin D Deficiency Iron Deficiency Specialty Diagnoses / Procedures Referred By Leon t Referred To Contact Primary Care Diagnoses Anxiety Depression, major, single episode, mild (CMS/HCC) Procedures Follow Up In Primary Care Jhon Scott DO [address] [address] Referral ID Status Reason Start Date Expiration Date V isits Requested Visits Authorized [id number] Authorized 06/16/2022 12/13/2022 1 1 Reason Comments Anxiety Depression Reason Comments Nausea C/o nausea x 1 week when she eats. Denies v/d. Denies any urinary problems. C/o constipation Care Teams (unrecognized sec tion and content) Manufacturing Finance Manager Relationship Specialty Start Date End Date Jhon Scott DO [address] [address] PCP - General 03/09/22 Manufacturing Finance Manager Relationship Specialty Start Date End Date Jhon Scott DO [address] [address] PCP - General 03/09/22 Manufacturing Finance Manager Relationship Specialty Start Date End Date Jhon Scott DO [address] [address] PCP - General 03/09/22 Manufacturing Finance Manager Relationship Specialty Start Date End Date Jhon Scott DO [address] [address] PCP - General 03/09/22 Jhon Scott DO [address] [address] PCP - MMO ACO PCP 11/10/22 Manufacturing Finance Manager Relationship Specialty Start Date End Date ScottMarryJhon A, DO [address] [address] PCP - General 03/09/22 ScottMarryJhon A, DO [address] [address] PCP - MMO ACO PCP 11/10/22 Manufacturing Finance Manager Relationship Specialty Start Date End Date ScottMarryJhon Mingo, DO [address] [address] PCP - General 03/09/22 ScottMarryJhon A, DO [address] [address] PCP - MMO ACO PCP 11/10/22 Manufacturing Finance Manager Relationship Specialty Start Date End Date ScottMarryJhon [place]ingo DO [address] [address] PCP - General 03/09/22 Manufacturing Finance Manager Relationship Specialty Start Date End Date ScottMarryJhonann-marie Aguila DO [address] [address] PCP - General 03/09/22 Jhon Scott, DO [address] [address] PCP - MMO ACO PCP 11/10/22 Manufacturing Finance Manager Relationship Specialty Start Date End Date ScottMarryJhon A, DO [address] [address] (work) PCP - General 03/09/22 Manufacturing Finance Manager Relationship Specialty Start Date End Date No, Physician [facility] PCP - General 03/24/21 Manufacturing Finance Manager Relationship Specialty Start Date End Date No, Physician [facility] PCP - General 03/24/21 Manufacturing Finance Manager Relationship Specialty Start Date End Date No, Physician [facility] PCP - General 03/24/21 Manufacturing Finance Manager Relationship Specialty Start Date End Date No, Physician [facility] PCP - General 03/24/21 Team Status: [...] 2024 End: July 16, 2024 Matt Ashley BIOSTATISTICS MANAGER, BIOSTATISTICS MANAGER-C Attending Provider Active Start: July 16, 2024 [...] 2024 End: August 11, 2024 Matt Ashley BIOSTATISTICS MANAGER, BIOSTATISTICS MANAGER-C Attending Provider Active Start: August 11, 2024 [...] Team Status: Inactive Member Role/Relationship Status Dates HJON SCOTT DO Primary Care Provider Active Start: [...] End: July 16, 2024 Matt Ashley NP, BIOSTATISTICS MANAGER-C Attending Provider Active Start: July 16, 2024 [...] August 11, 2024 End: August 11, 2024 aMtt Ashley BIOSTATISTICS MANAGER, BIOSTATISTICS MANAGER-C Attending Provider Active Start: August 11, 2024 [...] 2024 End: July 16, 2024 Matt Ashley BIOSTATISTICS MANAGER, BIOSTATISTICS MANAGER-C Attending Provider Active Start: July 16, 2024 [...] 2024 End: August 11, 2024 Matt Ashley BIOSTATISTICS MANAGER, BIOSTATISTICS MANAGER-C Attending Provider Active Start: August 11, 2024 [...] 2024 End: July 16, 2024 Matt Ashley BIOSTATISTICS MANAGER, BIOSTATISTICS MANAGER-C Attending Provider Active Start: July 16, 2024 End: July 16, 2024 Team Status: Inactive Member Role/Relationship Status Dates JHON SCOTT , DO Primary Care Provider Active Start: July 21, 2024 End: July 21, 2024 JOHN SCOTT , DO Referring Provider Active Sta [...] 2024 End: August 11, 2024 Matt Ashley BIOSTATISTICS MANAGER, BIOSTATISTICS MANAGER-C Attending Provider Active Start: August 11, 2024 [...] 2024 End: July 16, 2024 Matt Ashley BIOSTATISTICS MANAGER, BIOSTATISTICS MANAGER-C Attending Provider Active Start: July 16, 2024 [...] 2024 End: August 11, 2024 Matt Ashley BIOSTATISTICS MANAGER, BIOSTATISTICS MANAGER-C Attending Provider Active Start: August 11, 2024 [...] 2024 End: July 16, 2024 Matt Ashley BIOSTATISTICS MANAGER, BIOSTATISTICS MANAGER-C Attending Provider Active Start: July 16, 2024 [...] 2024 End: August 11, 2024 Matt Ashley BIOSTATISTICS MANAGER, BIOSTATISTICS MANAGER-C Attending Provider Active Start: August 11, 2024 [...] 2024 End: August 11, 2024 Matt Ashley BIOSTATISTICS MANAGER, BIOSTATISTICS MANAGER-C Attending Provider Active Start: August 11, 2024 [...] 2024 End: October 10, 2024 JHON SCOTT , DO Referring Provider [...] BE BASED ON THE PRIMARY CLINICAL RECORDS. [employer] provides no warranty or guarantee of the accuracy or completeness of information in this document.
== END | disposition home or self-care (01) ==
LOC: BWCLAB 16:00 → LABSPEC 16:00
PROVIDERS: PCP Student in an Organized Health Care Education/Training Program; Referring Provider Obstetrics & Gynecology; Visit Provider Obstetrics & Gynecology
DX: O09.93 Supervision of high risk pregnancy, unspecified, third trimester (principal); Z3A.33 33 weeks gestation of pregnancy
CPT/HCPCS: 87081

== ENCOUNTER → 2024-12-11 | Outpatient (CLI) | payer BC, SELFPAY ==
[2024-12-11 10:56] LABS: Hematocrit 38.0 % (37-47); Hemoglobin 12.9 g/dL (12.0-15.0); Immature Granulocytes Count 0.030 X10^3/uL (0.0-0.0); Mean Corp Hgb Conc 33.9 g/dL (32-36); Mean Corpuscular Volume 84.3 fL (81-99); Mean Platelet Vol. 9.9 fl (6.2-12.0); NRBC Flagged by Analyzer 0 % (0-5); Platelet Count 251 K/mm3 (150-450); RBC Distribution Width CV 12.8 % (11.6-14.6); RBC Distribution Width SD 38.7 fl (35.1-43.9); Red Blood Count 4.51 M/mm3 (4.2-5.4); White Blood Count 7.5 K/mm3 (4.4-11.0)
[2024-12-11 11:31] LABS: Creatinine, Urine (random) 95.40 mg/dL (28.00-217.00); Protein, Urine (Random) 19.6 mg/dL (0.0-12.0); Protein:Creat Ratio 205 mg/g CRE (0-200)
[2024-12-11 11:35] LABS: AST(SGOT) 12 U/L (<=31); Alanine Aminotransfer ALT/SGPT 7 U/L (<=34); Albumin, Serum 3.2 g/dL (3.5-5.0); Alkaline Phosphatase 139 U/L (35-104); Anion Gap 12 (5-15); BUN 11 mg/dL (4-19); BUN/Creat Ratio 18.2 RATIO (10-20); Calcium,Total 8.9 mg/dL (7.6-11.0); Carbon Dioxide 19.6 mmol/L (21.0-32.0); Chloride 107 mmol/L (98-108); Globulin 3.1 g/dL (2.2-4.2); Glucose 102 mg/dL (70-99); Potassium 3.9 mmol/L (3.3-5.1)
== END | disposition home or self-care (01) ==
PROVIDERS: PCP Student in an Organized Health Care Education/Training Program; Visit Provider Obstetrics & Gynecology
DX: O26.899 Other specified pregnancy related conditions, unspecified trimester (principal); R51.9 Headache, unspecified; O12.10 Gestational proteinuria, unspecified trimester; Z3A.00 Weeks of gestation of pregnancy not specified
CPT/HCPCS: 36415; 80053; 82570; 84156; 85025

== ENCOUNTER 2024-12-15 14:45 | Inpatient (IN) | payer BC, SELFPAY ==
[2024-12-15] VITALS (18 sets, daily range): BP systolic 113–156; BP diastolic 68–96; PULSE 71–108; RESP 13–21; TEMP 36.1–37.3; O2SAT 96–100; BMI 47.7
[2024-12-15 14:07] LABS: Hematocrit 35.9 % (37-47); Hemoglobin 11.9 g/dL (12.0-15.0); Mean Corp Hgb Conc 33.1 g/dL (32-36); Mean Corpuscular Volume 84.9 fL (81-99); Mean Platelet Vol. 10.1 fl (6.2-12.0); Platelet Count 258 K/mm3 (150-450); RBC Distribution Width CV 12.6 % (11.6-14.6); RBC Distribution Width SD 38.4 fl (35.1-43.9); Red Blood Count 4.23 M/mm3 (4.2-5.4); White Blood Count 7.2 K/mm3 (4.4-11.0)
[2024-12-15 14:38] LABS: Creatinine, Urine (random) 40.20 mg/dL (28.00-217.00); Protein, Urine (Random) 6.7 mg/dL (0.0-12.0); Protein:Creat Ratio 167 mg/g CRE (0-200)
[2024-12-15 14:41] LABS: AST(SGOT) 15 U/L (<=31); Alanine Aminotransfer ALT/SGPT 7 U/L (<=34); Estimated Creatinine Clearance 232.05 ml/min (50-250); Uric Acid 6.0 mg/dL (2.6-6.0)
[2024-12-15] MEDS: Lactated Ringers 1,000 ML 999 ML IV (16:04)
--- NOTE | 2024-12-15 16:58 | HP.PCM.OB_ITS ---
HPI - General General Date of Admission: 12/15/24 HPI Narrative RADHA BOONE, is a 24 F who presents for headache and now diagnosed with ghtn Maternal Data Information RICHARD Calculator Estimated Delivery Date Method Current WG Current Estimate 12/31/24 LMP (Certain) 37w 5d Other Estimates 12/30/24 Ultrasound #1 37w 6d PFSH PFS Medical History (Updated 12/15/24 @ 16:[address] Ana Laura Mercado MD) Pre-eclampsia Seasonal allergies Depression Anxiety Home Medications ?Medication ?Instructions ?Recorded ?Last Taken ?Type vits no.105-iron 30 1 ea PO DAILY 12/28/19 History mg-folic acid 1.4 mg-dha 300 mg oral pack escitalopram oxalate 20 mg tablet 20 mg PO QDAY #90 ta bs 08/12/24 10/05/24 11:30 Rx (Lexapro) famotidine 20 mg tablet (Pepcid) 20 mg PO BID #60 tabs 11/07/24 Unknown Rx Allergy/AdvReac Type Severity Reaction Status Date / Time No Known Allergies Allergy Verified 12/15/24 14:07 Family History Mother Thyroid disorder, Onset Age: 38 Hypothyroid Diabetes GDM with both pregnancies Grandmother Thyroid disorder, Onset Age: 55 Maternal-thyroid nodules benign Diabetes Maternal type 2 Grandmother Diabetes Paternal type 2 Surgical History Previous section [place] teeth extracted Social History adopted: No household members: spouse and children housing: house number of children: 1 current occupational status: unemployed current occupation: [employer] pets and animals: Yes (Avoid litterbox) pets and animals: cat(s) and dog(s) history of recent travel: No sexually active: Yes Smoking Status: Former smoker quit date: 01/11/24 pack-years: 3 Electronic Cigarette Use: with nicotine second hand exposure: No quit status: quit date established alcohol intake: current alcohol intake frequency: holidays/special occasions only details: not while substance use type: former substance user Date of last use: last used 03/25/24 and marijuana well-balanced diet: daily or most days caffeine: Yes Type: coffee Number of servings: 1 eating out: 1-3 times/week during the past year weight has: decreased > 10 lbs what type of physical activity do you participate in: none janet/restoration: Hinduism seatbelt use: always do you feel safe at home: Yes 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 Date Name GA/Weeks Outcome Route Bth Weight Infant Gen Labor Lgth Anesthesia Del Locatn Provider FOB 08/06/20 [place] 39 live - full term 8#1oz Female spinal [facility] Dr. Enedina Balbuena Delivery Date: 08/06/20 Last Updated by: Rona Huff meconium & decels, prolonged labor Visit Details Expected Delivery Route/Plan plans repeat C/S with Plans Covid status: [] Flu vaccine: [] Tdap vaccine: declined Rhogam: na LARC form signed: declined movement and labor precautions reviewed. Problem list reviewed and updated with the most current plan of care details and appropriate orders placed. Relevant counseling for the gestational age provided. Continue routine care and follow up unless otherwise noted in visit notes/problem list details OB Flowsheet Initial Weight: 250 lb Date -?-?-?-?-?-?-?-?-?-?-?-?- EGA Weight BP Urine Prot -?-?-?-?-?-?-?-?-?-?-?-?- Glucose FHR FuHt Pres Dilation -?-?-?-?-?-?-?-?-?-?-?-?- Effaced St Visit Note 05/23/24 -?-?-?-?-?-?-?-?-?-?-?-?- 8w 2d 250 lb (+0 oz) 108/79 -?-?-?-?-?-?-?-?-?-?-?-?- 171 -?-?-?-?-?-?-?-?-?-?-?-?- KW- CRL cons wit h dates. NIPT accepted. plans to get labs next visit. plans R C/S 06/13/24 -?-?-?-?-?-?-?-?-?-?-?-?- 11w 2d 253 lb (+3 lb) 123/82 Negative -?-?-?-?-?-?-?-?-?-?-?-?- Negative 162 -?-?-?-?-?-?-?-?-?-?-?-?- KW- work in for RLQ pain x 4 days. no fever, vomiting but having increased loose BMs. noticed spotting on and off today. positive McBurney's point with palpation. to ER for evaluation for appendicitis 06/19/24 -?-?-?-?-?-?-?-?-?-?-?-?- 12w 1d 255 lb 4 oz (+5 lb 4 oz) 128/84 -?-?-?-?-?-?-?-?-?-?-?-?- 150 -?-?-?-?-?-?-?-?-?-?-?-?- JV- has some bro wn discharge. has known OLE. abdominal scan today reassuring. 06/30/24 -?-?-?-?-?-?-?-?-?-?-?-?- 13w 5d 253 lb (+3 lb) 128/83 Negative -?-?-?-?-?-?-?-?-?-?-?-?- Negative 145 -?-?-?-?-?-?-?-?-?-?-?-?- KW- no vb/crampi ng for last few days. doing well. US scheduled for 08/07. has appt with counselor after appt but doing well. 07/16/24 -?-?-?-?-?-?-?-?-?-?-?-?- 16w 0d 254 lb 4 oz (+4 lb 4 oz) 118/72 Negative -?-?-?-?-?-?-?-?-?-?-?-?- Negative 144 -?-?-?-?-?-?-?-?-?-?-?-?- MH-No VB. Nausea resolved. Feeling flutters. 07/21/24 -?-?-?-?-?-?-?-?-?-?-?-?- 16w 5d 254 lb 8 oz (+4 lb 8 oz) 118/80 Negative -?-?-?-?-?-?-?-?-?-?-?-?- Negative 165 -?-?-?-?-?-?-?-?-?-?-?-?- KW- work in for FHT. having increased anxiety about wellbeing. fht and movement on US today. 08/11/24 -?-?-?-?-?-?-?-?-?-?-?-?- 19w 5d 262 lb 4 oz (+12 lb 4 oz) 112/75 Negative -?-?-?-?-?-?-?-?-?-?-?-?- Negative 163 -?-?-?-?-?-?-?-?-?-?-?-?- MH-No VB. Gutsavo Heller Previa on US. Reviewed US, rpt sched 08/19 to complete anatomy. 09/11/24 -?-?-?-?-?-?-?-?-?-?-?-?- 24w 1d 269 lb (+19 lb) 112/77 Trace -?-?-?-?-?-?-?-?-?-?-?-?- Negative 150 24 -?-?-?-?-?-?-?-?-?-?-?-?- SM- no vb lof go od fm nor euglar ctx discussed previous trauma and reviewed. struggled with the epidural. 10/10/24 -?-?-?-?-?-?-?-?-?-?-?-?- 28w 2d 280 lb 2 oz (+30 lb 2 oz) 107/69 Negative -?-?-?--?-?-?-?-?-?-?-?-?- Negative 155 29 -?-?-?-?-?-?-?-?-?-?-?-?- JV- declined tda p today JV- declined tdap today. kassidy osuna at images of ultrsound from sunday and placenta is no longer over the cervix. ok to cancel next scan. growth was also adequate. no lof, vaginal bleeding, or dec fm. 10/21/24 -?-?-?-?-?-?-?-?-?-?-?-?- 29w 6d 282 lb 4 oz (+32 lb 4 oz) 117/81 Negative -?-?-?-?-?-?-?-?-?-?-?-?- Negative 145 31 -?-?-?-?-?-?-?-?-?-?-?-?- SM- discussed an d will get 3 hour gtt SM- discussed and will get 3 hour gtt n ovb lof good fm n oreuglar ctx 11/07/24 -?-?-?-?-?-?-?-?-?-?-?-?- 32w 2d 290 lb (+40 lb) 123/86 Negative -?-?-?-?-?-?-?-?-?-?-?-?- Negative 140 33 -?-?-?-?-?-?-?-?-?-?-?-?- SM- no vb lof go od fm n oreuglar ctx nl 3 hr 11/18/24 -?-?-?-?-?-?-?-?-?-?-?-?- 33w 6d 291 lb 8 oz (+41 lb 8 oz) 119/85 Negative -?-?-?-?-?-?-?-?-?-?-?-?- Negative 150 35 -?-?-?-?-?--?-?-?-?-?-?-?- SM- feeling some more pressure no vb lof good fm nor egular ctx increased discharge 12/03/24 -?-?-?-?-?-?-?-?-?-?-?-?- 36w 0d 300 lb 1 oz (+50 lb 1 oz) 133/87 Negative -?-?-?-?-?-?-?-?-?-?-?-?- Negative 140 -?-?-?-?-?-?-?-?-?-?-?-?- SM- no vb crampi ng having some palpitations and dizziness 12/11/24 -?-?-?-?-?-?-?-?-?-?-?-?- 37w 1d 302 lb 8 oz (+52 lb 8 oz) 120/89 Trace -?-?-?-?-?-?-?-?-?-?-?-?- Negative 145 -?-?-?-?-?-?-?-?-?-?-?-?- SM- no vb lof go od fm no regular ctx having episodes of feeling dizzy and lightheadedness. SM- no vb lof good fm no reg ular ctx having episodes of feeling dizzy and lightheadedness.check cbc cmp ur protein cr ratio reviwed precautions NST FHR Rate Baby A Baseline: 130 Variability:: Moderate Accelerations:: 15 x 15 Decelerations:: None NST Reactive:: Yes FHR Category:: Category I Uterine Activity:: irregular ROS Constitutional Constitutional: Reports systems reviewed and no addt'l complaints, except as documented Eyes Eyes: Denies change in vision ENT HEENT: Reports systems reviewed and no addt'l complaints, except as documented; Denies headache(s) Cardiovascular Cardiovascular: Reports systems reviewed and no addt'l complaints, except as documented; Denies chest pain or dyspnea Respiratory/Chest Respiratory/Chest: Reports systems reviewed and no addt'l complaints, except as documented Gastrointestinal Gastrointestinal: Reports systems reviewed and no addt'l complaints, except as documented; Denies abdominal pain Genitourinary Genitourinary: Reports systems reviewed and no addt'l complaints, except as documented, contractions Details: present (irregular) and movement Details: present; Denies dysuria or genital lesions Musculoskeletal Musculoskeletal: Reports systems reviewed and no addt'l complaints, except as documented Neurologic Neurologic: Reports systems reviewed and no addt'l complaints, except as documented Endocrine Endocrinology: Reports systems reviewed and no addt'l complaints, except as documented Vital Signs Vital Signs Vital Signs: 12/15/24 14:00 12/15/24 14:00 12/15/24 14:00 Temperature Temperature Source Tympanic Pulse Rate Respiratory Rate 14 Blood Pressure BP Systolic BP Diastolic Pulse Ox 100 12/15/24 14:00 12/15/24 14:07 12/15/24 14:07 Temperature 99.2 F H Temperature Source Pulse Rate 88 Respiratory Rate Blood Pressure 139/87 H BP Systolic 139 BP Diastolic 87 Pulse Ox 12/15/24 14:22 12/15/24 14:22 12/15/24 14:37 Temperature Temperature Source Pulse Rate 87 Respiratory Rate Blood Pressure 140/89 H 146/96 H BP Systolic 140 146 BP Diastolic 89 96 Pulse Ox 12/15/24 14:37 12/15/24 14:52 12/15/24 14:52 Temperature Temperature Source Pulse Rate 96 96 Respiratory Rate Blood Pressure 156/94 H BP Systolic 156 BP Diastolic 94 Pulse Ox 12/15/24 15:07 12/15/24 15:07 Temperature Temperature Source Pulse Rate 100 Respiratory Rate Blood Pressure 151/96 H BP Systolic 151 BP Diastolic 96 Pulse Ox Weight Weight: 305 lb Body Mass Index (BMI) 47.7 Physical Exam Const alert, oriented x3, no apparent distress and healthy appearing HEENT normocephalic and moist oral mucous membranes Head and Scalp: atraumatic Neck full ROM, no lymphadenopathy, supple and thyroid normal General: trachea midline Lymph Lymphatic: no lymphadenopathy noted Chest inspection of chest normal Resp normal respiratory effort Cardio regular rate GI soft to palpation and non-tender GI Narrative: gravid Inspection: gravid external exam normal Manual OB Exam: estimated gestational size appropriate, presentation cephalic, dilated, effaced and station Extremity normal to inspection General Extremity: Negative for edema Skin no rashes or lesions noted Neuro no focal motor deficits and deep tendon reflexes 2+ bilaterally Motor Exam: strength 5/5 throughout and clonus absent Psych mental status grossly normal Labs Labs Labs: Blood Type B POSITIVE Antibody Screen NEGATIVE Hct, (37-47) 35.9 % L Hgb, (12.0-15.0) 11.9 g/dL L Obstetrics Ultrasound Syphilis Total Ab, (Nonreactive) Nonreactive VZV IgG Antibody, (Immune >165) 362 index Rubella IgG Antibody, (Nonreactive) REAC Hep Bs Antigen, (Nonreactive) Nonreactive Hepatitis C Antibody, (Nonreactive) Nonreactive Chlamydia DNA (NANCY), (Negative) Negative N.gonorrhoeae DNA (NANCY), (Negative) Negative HIV 1&2 Antibody, (Nonreactive) Nonreactive Glucose 1 Hr 50 gm, (70-140) 166 mg/dL H Gest Glucose Tolerance mg/dL Rhogam given: No Assessment & Plan (1) Gestational hypertension: (2) Variable heart rate decelerations, antepartum: COMMENT: bpp in triage (3) Abnormal glucose affecting : COMMENT: nl 3 hr GTT (4) Marijuana smoker in remission: COMMENT: last used 03/25/24, education provided, informed of initial tox screen & random testing during (5) History of nicotine vaping: COMMENT: Quit 01/11/24 (6) Supervision of high-risk : QUALIFIERS: Trimester: second trimester Qualified Code(s): O09.92 - Supervision of high risk , unspecified, second trimester COMMENT: PRR, , RICHARD 12/31/24 Boy, Sung Shha, Sree (7) : QUALIFIERS: Weeks of gestation: 37 weeks Qualified Code(s): Z3A.37 - 37 weeks gestation of COMMENT: Neg GBS discussed NIPT & Carrier testing- Undecided NIPT-Low Risk. Rpt US 08/19 to complete anatomy. (8) Premature ventricular contractions: COMMENT: started with COVID in last (9) Obesity affecting : QUALIFIERS: Trimester: second trimester Obesity type affecting : unspecified obesity Qualified Code(s): O99.212 - Obesity complicating , second trimester COMMENT: HgbA1c NSTs at 37 weeks (10) Previous section: COMMENT: plans repeat C/S. RLTCS BS 12/24/24 SM. (11) Hiatal hernia: COMMENT: dx 03/2024, small hernia PLAN: Plan admit for RLTCS and BS
--- NOTE | 2024-12-15 17:15 | EX.PCM.OBRPT ---
Assessment & Plan (1) Gestational hypertension: (2) delivery delivered: COMMENT: rltcs bs malachi nam gthn 38 (3) Abnormal glucose affecting : COMMENT: nl 3 hr GTT (4) Marijuana smoker in remission: COMMENT: last used 03/25/24, education provided, informed of initial tox screen & random testing during (5) History of nicotine vaping: COMMENT: Quit 01/11/24 (6) Supervision of high-risk : QUALIFIERS: Trimester: second trimester Qualified Code(s): O09.92 - Supervision of high risk , unspecified, second trimester COMMENT: PRR, , RICHARD 12/31/24 Sung Thrasher [facility] Alyssa, Sree (7) : QUALIFIERS: Weeks of gestation: 37 weeks Qualified Code(s): Z3A.37 - 37 weeks gestation of COMMENT: Neg GBS discussed NIPT & Carrier testing- Undecided NIPT-Low Risk. Rpt US 08/19 to complete anatomy. (8) Premature ventricular contractions: COMMENT: started with COVID in last (9) Obesity affecting : QUALIFIERS: Trimester: second trimester Obesity type affecting : unspecified obesity Qualified Code(s): O99.212 - Obesity complicating , second trimester COMMENT: HgbA1c NSTs at 37 weeks (10) Hiatal hernia: COMMENT: dx 03/2024, small hernia (11) Previous section: COMMENT: plans repeat C/S. RLTCS BS 12/24/24 . Maternal Data Information RICHARD Calculator Estimated Delivery Date Method Current WG Current Estimate 12/31/24 LMP (Certain) 37w 5d Other Estimates 12/30/24 Ultrasound #1 37w 6d Operative Report (OB) Procedure Details Date of Procedure: 12/15/24 Procedure Start Time: 15:36 Pre-Operative Diagnosis: Other Other Pre-Operative diagnosis: see a/p comments Post-Operative Diagnosis: Same as Pre-operative diagnosis Classification: TEVIN Type of Anesthesia: Spinal Special Medications: none Antibiotic Given: Ancef 2 grams IV x1 Drain: Rhodes to straight drain Estimated Blood Loss: 900 Fluids Replaced: crystalloid Findings Description of surgery: Spinal anesthesia was placed without difficulty. Rhodes catheter was placed. The patient was placed in the dorsal supine position with leftward tilt. Patient was prepped and draped in the normal sterile fashion. Pfannenstiel skin incision was made with the scalpel and carried through to the underlying layer of fascia with the scalpel. Fascia was nicked in the midline and the incision extended laterally. The rectus bellies were dissected off superiorly and inferiorly with out complication both sharply and bluntly. The peritoneum was entered digitally. The incision was stretched and a low transverse uterine incision was made with the scalpel. The infant's head was delivered atraumatically followed by the anterior and posterior shoulders without complication the rest of the infant delivered. The cord was clamped and cut and the was handed off to awaiting nurse. The placenta was delivered spontaneously immediately following and was noted to be intact and have a three-vessel cord. The uterus was cleared of all clots and debris, and the incision was closed in a single layer closure using #1 Monocryl. The ovaries and fallopian tubes were noted to be within normal limits. Patient had desired sterilization and was counseled preoperatively regarding irreversibility and permanency. Therefore bilateral fallopian tubes were elevated and transected across using a LigaSure device starting proximally to distally without complication the entire fallopian tubes were removed. gutters were cleared of all clots and debris. The peritoneum was closed with 3-0 Monocryl in a running fashion. Gloves were changed prior to fascial closure. hemoblast placed over muscles for raw appearance. Fascia was closed with 0 PDS in a running fashion. Subcutaneous tissue was copiously irrigated and the skin was closed with 3-0 Monocryl in a subcuticular fashion. Mepilex dressing was applied without complication. Patient was taken to recovery in stable condition. Surgical findings: vertex infant Presentation: Vertex Amniotic Membrane Rupture Type: Artificial Amniotic Fluid Description: Clear Specimen collected: Yes Description of specimen(s) removed: placenta and baby Cord Vessel Description: 3 Vessels Delayed Cord Clamping: Yes Link Assembler explosive ordnance disposal specialist: Yes Risk And Compliance Analytics Director: Chiquita Silverio Tasks completed by nurse first assist: Opening & closing, Retracting and Other (assisting in delivery of the ) Additional assistant professor of philosophy?: No Complications Complications: No Admit VTE Documentation VTE Present on Admission: No VTE Mechan Device Prophylaxis: SCD's Multi Select Codes Urinary/Genital Urinary/Genital CPT Codes: 85172 C/S+TL [place] 55406 Delivery [facility]
[2024-12-15] MEDS: Cefazolin 1 GM/5 ML Vial 3 GM IV (17:16)
[2024-12-15] MEDS: 0.9% Normal Saline (1000mL) 500 ML IV (17:40)
[2024-12-15 17:41] LABS: Barbiturate Urine NEGATIVE (< 200 ng/mL); Benzodiazepine Urine NEGATIVE (< 200 ng/mL); PCP Urine NEGATIVE (< 25 ng/mL); THC Urine NEGATIVE (< 50 ng/mL)
--- NOTE | 2024-12-15 17:43 | FALS_PTH ---
PATIENT: RADHA MOSHER LOC: [facility] U#:[id number] AGE/SX: 24/F ROOM: WP004 RE12/15/[address]: Dr. Ana Laura Mercado MD : 2000 BED: 1 DIS: 12/17/2024 SPEC #: [id number] RECD: 12/16/24 00:28 STATUS: TOBIAS REJeanne #: [id number] MICHAEL: 12/15/24 17:[address]: Ana Laura Mercado DEPT: SURGICAL PATHOLOGY RECD BY: Kalpana Kwok ENTERED: 12/16/24 08:33 SP TYPE: FALL TUBES OTHR DR: JHON SCOTT DO Tissues: Fallopian tube Procedures: Surgery Specimen Level II HEADER OPERATION: Repeat section with tubal ligation PRE-OP DIAGNOSIS: Tubal ligation TISSUE SUBMITTED: A- Bilateral fallopian tubes * stitch in right tube * MICROSCOPIC DIAGNOSIS A. Right and left fallopian tubes, salpingectomies * Benign fallopian tubes with complete cross sections obtained * Benign paratubal cysts MICROSCOPIC DESCRIPTION Slides are reviewed. GROSS DESCRIPTION A. Received in formalin labeled with the patient's name and date of . Designated as stitch in right are 2 pink-purple fimbriated fallopian tubes. There is a suture designated as right and they measure 9.4 x 0.7 cm (left) and 8.2 x 0.5 cm (right). There are few paratubal cyst on the right fallopian tube, 0.9 cm in greatest dimension. Freelance Recruiter sections are submitted in 2 cassettes as follows: A1: Left fallopian tubeA2: Right fallopian tube UT 12/16/2024 CPT:15659h6
[2024-12-15 18:16] LABS: Syphilis Antibodies Nonreactive (Nonreactive)
--- NOTE | 2024-12-15 18:17 | DCINST_ITS ---
Discharge Instructions DC O2, CPAP, BIPAP needs Home O2 Discharge instructions: No Dressing / Incision Discharge Activity: May Not Drive (for 2 weeks or while taking narcotic pain medications.), May Shower and May Take a Tub Bath (in 7 days) May shower in (days): 0 May resume sexual activity in: 4-6 weeks Weight Bearing Status: Full weight bearing Lifting Restrictions: 20 pounds Dressing / Incision Call your doctor if your incision/area has: Continuous Slow Oozing, Sudden Increased Bleeding, Increased Pain/ Swelling, Increased Redness and Foul Smelling Discharge Call your doctor if you observe: Fever of 101 or Higher and Using more than 1 pad per hour (for 2 hours) Suture Line Care: Avoid Pulling/Pushing and Avoid Pinching/Bending Cleanse incision/area with: Soap & Water and Keep Dressing Clean & Dry Follow Up Care Please Follow Up With: Ana Laura Mercado MD When: Call [phone] to make an appointment for an incision check in 1-2 weeks. Test Results: Test results from this visit will be discussed in further detail at your follow- up appointment, if applicable. Discharge Plan Admission Admit Date/Time: 12/15/24 17:43 Attending Provider: Ana Laura Mercado Primary Care Provider: JHON SCOTT Discharge Orders/Prescriptions Prescriptions: New oxycodone-acetaminophen [Percocet] 5-325 mg tablet 1 tab PO Q4H PRN (Reason: pain) 7 Days Qty: 20 0RF naproxen 500 mg tablet 500 mg PO BID PRN PRN (Reason: Pain) Qty: 30 1RF No Action famotidine [Pepcid] 20 mg tablet 20 mg PO BID Qty: 60 6RF [id number] ac-dha 1 EACH combo pack 1 ea PO DAILY escitalopram oxalate [Lexapro] 20 mg tablet 20 mg PO QDAY Qty: 90 2RF Referrals / Follow Up: JHON SCOTT DO [Primary Care Provider, Family Practice] Disposition Disposition (needs filled in before D/C Order can be placed): Home, Self Care
[2024-12-15] MEDS: Oxytocin 15 Units/NS 250ml 15 UNITS/250 ML IV.SOLN 83 UNITS IV (18:42)
[2024-12-15] MEDS: Ketorolac 30 MG/ML Syringe IV (19:23)
[2024-12-15] MEDS: 0.9% Saline Lock 10 ML Syringe IV (19:23)
[2024-12-15] MEDS: Lactated Ringers 1,000 ML 100 ML IV (21:57)
[2024-12-16 00:30] VITALS: BP 122/82; PULSE 100; RESP 16; TEMP 36.7; O2SAT 98
[2024-12-16 00:34] LABS: Pathology Specimen OB SEE PATHOLOGY REPORT
[2024-12-16] MEDS: Ketorolac 30 MG/ML Syringe IV (00:47)
[2024-12-16 02:30] VITALS: BP 132/87; PULSE 83; RESP 17; TEMP 36.7; O2SAT 97
[2024-12-16 06:18] VITALS: BP 132/93; PULSE 79; RESP 18; TEMP 36.6
[2024-12-16 06:28] LABS: Hematocrit 28.6 % (37-47); Hemoglobin 9.9 g/dL (12.0-15.0); Mean Corp Hgb Conc 34.6 g/dL (32-36); Mean Corpuscular Volume 82.9 fL (81-99); Mean Platelet Vol. 9.8 fl (6.2-12.0); Platelet Count 192 K/mm3 (150-450); RBC Distribution Width CV 12.7 % (11.6-14.6); RBC Distribution Width SD 38.3 fl (35.1-43.9); Red Blood Count 3.45 M/mm3 (4.2-5.4); White Blood Count 9.1 K/mm3 (4.4-11.0)
[2024-12-16 08:00] VITALS: BP 130/84; PULSE 96; RESP 16; TEMP 36.4; O2SAT 98
--- NOTE | 2024-12-16 10:05 | PCM.PN.OB ---
Subjective Subjective Patient doing well without complaints. Tolerating PO. Ambulating and voiding without difficulty. feeding well. Denies chest pain, shortness of breath, calf pain/swelling, fevers, chills, lightheadedness. Objective Data Objective Data Vital Signs: Vital Signs Temp Pulse Resp BP Pulse Ox O2 Del Method 97.6 F L 96 16 130/84 H 98 Room Air 12/16/24 08:00 12/16/24 08:00 12/16/24 08:00 12/16/24 08:00 12/16/24 08:00 12/16/24 08:00 Oxygen Delivery Method Room Air Weight: 305 lb Body Mass Index (BMI) 47.7 Intake & Output: Intake and Output for Last 24 Hours 12/14/24 12/15/24 12/16/24 23:59 23:59 23:59 Intake Total 1250 / 1250 1000 / 1000 Output Total 1000 / 1000 1100 / 1100 Balance 250 / 250 -100 / -100 Lab / Micro Data 12/16/24 06:15 12/15/24 13:50 Labs: Laboratory Results - last 24 hr 12/15/24 13:50: WBC 7.2, RBC 4.23, Hgb 11.9 L, Hct 35.9 L, MCV 84.9, MCH 28.1, MCHC 33.1, RDW Std Deviation 38.4, RDW Coeff of Benjamin 12.6, Plt Count 258, MPV 10.1, Creatinine 0.54 L, Estim Creat Clear Calc 232.05, Est GFR (MDRD) Non-Af 131, Uric Acid 6.0, AST 15, ALT 7, U Random Total Protein 6.7, Urine Creatinine 40.20, Protein/Creatinin Ratio 167 12/15/24 15:00: Syphilis Total Ab Nonreactive, Blood Type B POSITIVE, Antibody Screen NEGATIVE 12/15/24 17:10: Urine Opiates Screen NEGATIVE, U Buprenorphine Qual NEGATIVE, Ur Oxycodone Screen NEGATIVE, Urine Methadone Screen NEGATIVE, Urine Fentanyl Screen NEGATIVE, Ur Barbiturates Screen NEGATIVE, Ur Phencyclidine Scrn NEGATIVE, Ur Amphetamines Screen NEGATIVE, U Benzodiazepines Scrn NEGATIVE, Urine Cocaine Screen NEGATIVE, U Cannabinoids Screen NEGATIVE 12/16/24 06:15: WBC 9.1, RBC 3.45 L, Hgb 9.9 L, Hct 28.6 L, MCV 82.9, MCH 28.7, MCHC 34.6, RDW Std Deviation 38.3, RDW Coeff of Benjamin 12.7, Plt Count 192, MPV 9.8 ROS Constitutional Constitutional: Reports systems reviewed and no addt'l complaints, except as documented Cardiovascular Cardiovascular: Reports systems reviewed and no addt'l complaints, except as documented Respiratory/Chest Respiratory/Chest: Reports systems reviewed and no addt'l complaints, except as documented Gastrointestinal Gastrointestinal: Reports systems reviewed and no addt'l complaints, except as documented Physical Exam Const alert, oriented x3 and no apparent distress HEENT Head and Scalp: atraumatic Resp normal respiratory effort GI soft to palpation and non-tender Inspection: incision intact, healing well and drainage (none) Bimanual Exam - Vag & Uterus: uterus non-tender Uterus Palpation: uterus fundus firm (below Umbilicus) Assessment & Plan (1) delivery delivered: COMMENT: deepak rltcs bs boy nam gthn 38 (2) Gestational hypertension: PLAN: Plan s/p LTCS PPD # 1 1. routine post care 2. breast feeding- support given 3. rh positive 4. rubella immune
[2024-12-16] MEDS: Senna/Docusate Sodium 1 Tablet PO (10:48)
[2024-12-16] MEDS: Prenatal Vits Tablet 1 TABLET PO (11:15)
[2024-12-16 16:00] VITALS: BP 123/75; PULSE 77; RESP 16; TEMP 36.5; O2SAT 98
[2024-12-16 19:49] VITALS: BP 128/86; PULSE 80; RESP 16; TEMP 36.8; O2SAT 97
[2024-12-17 02:47] VITALS: BP 127/88; PULSE 85; RESP 16; TEMP 36.6; O2SAT 98
--- NOTE | 2024-12-17 07:42 | PN.OBGYN_ITS ---
Subjective Subjective Patient doing well without complaints. Tolerating PO. Ambulating and voiding without difficulty. Feeding well. Denies chest pain, shortness of breath, calf pain/swelling, fevers, chills, lightheadedness. Objective Data Objective Data Vital Signs: Vital Signs Temp Pulse Resp BP Pulse Ox O2 Del Method 97.8 F 85 16 127/88 H 98 Room Air 12/17/24 02:47 12/17/24 02:47 12/17/24 02:47 12/17/24 02:47 12/17/24 02:47 12/17/24 02:47 Oxygen Delivery Method Room Air Weight: 305 lb Body Mass Index (BMI) 47.7 Intake & Output: Intake and Output for Last 24 Hours 12/15/24 12/16/24 12/17/24 23:59 23:59 23:59 Intake Total 1250 / 1250 1000 / 1000 Output Total 1000 / 1000 1900 / 1900 Balance 250 / 250 -900 / -900 Lab / Micro Data 12/16/24 06:15 12/15/24 13:50 ROS Constitutional Constitutional: Reports systems reviewed and no addt'l complaints, except as documented Cardiovascular Cardiovascular: Reports as per HPI Respiratory/Chest Respiratory/Chest: Reports as per HPI Genitourinary Genitourinary: Reports as per HPI Physical Exam Const alert and oriented x3 HEENT normocephalic Eyes PERRL Neck full ROM Resp normal respiratory effort GI soft to palpation GI Narrative: FF below U. Dressing dry and intact Palpation: tender other (appropriately) Assessment & Plan (1) delivery delivered: COMMENT: rltcs bs boy nam gthn 38 (2) Gestational hypertension: QUALIFIERS: Trimester: unspecified trimester Qualified Code(s): O 13.9 - Gestational [-induced] hypertension without significant proteinuria, unspecified trimester PLAN: Plan s/p LTCS PPD # 2 1. routine post care 2. breast feeding- support given 3. rh positive 4. rubella immune 5. BP stable 6. home today
[2024-12-17 08:33] VITALS: BP 127/83; PULSE 95; RESP 17; TEMP 36.9
[2024-12-17 09:05] VITALS: O2SAT 97
[2024-12-17] MEDS: Senna/Docusate Sodium 1 Tablet PO (10:22)
[2024-12-17] MEDS: Prenatal Vits Tablet 1 TABLET PO (12:36)
[2024-12-17 12:46] VITALS: BP 147/92; PULSE 89; RESP 18; TEMP 37.3; O2SAT 97
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
[2024-12-17 14:15] VITALS: BP 138/83; PULSE 97; RESP 18; O2SAT 98
--- NOTE | 2024-12-22 15:12 | NURSING ---
F/up questions asked during visit-- pt. reports she is doing well overall, incision is sore but looks good, denies SERRATO, vision changes, and epigastric pain. is going well, doing more latching and pumping as needed. Will return to on 12/30 for a follow up as pt. is unsure if she wants to latch, pump, or both. Encouragement and support given.
== END 2024-12-17 15:24 | disposition home or self-care (01) | DRG 785 ==
LOC: WPOUT 15:15 → WP 17:47
PROVIDERS: Advanced Practice Midwife; Admitting Provider Obstetrics & Gynecology; PCP Student in an Organized Health Care Education/Training Program; Referring Provider Obstetrics & Gynecology; Visit Provider Obstetrics & Gynecology
DX: O13.4 Gestational [pregnancy-induced] hypertension without significant proteinuria, complicating childbirth (principal); O99.42 Diseases of the circulatory system complicating childbirth; F32.A Depression, unspecified; O99.214 Obesity complicating childbirth; O99.324 Drug use complicating childbirth; F41.9 Anxiety disorder, unspecified; K44.9 Diaphragmatic hernia without obstruction or gangrene; F12.91 Cannabis use, unspecified, in remission; O99.62 Diseases of the digestive system complicating childbirth; O34.211 Maternal care for low transverse scar from previous cesarean delivery; O99.344 Other mental disorders complicating childbirth; O36.8330 Maternal care for abnormalities of the fetal heart rate or rhythm, third trimester, not applicable or unspecified; I49.3 Ventricular premature depolarization; Z30.2 Encounter for sterilization; Z37.0 Single live birth; Z3A.37 37 weeks gestation of pregnancy; Z79.899 Other long term (current) drug therapy; Z87.891 Personal history of nicotine dependence
CPT/HCPCS: 59025; 59050; 80307; 82565; 82570; 84156; 84450; 84460; 84550; 85027; 86780; 86850; 86900; 86901; 88302; A4216; J2405

== ENCOUNTER → 2025-01-26 | Outpatient (CLI) | payer BC, SELFPAY | END | disposition home or self-care (01) | LOC: LABSPEC 11:44 | PROVIDERS: PCP Student in an Organized Health Care Education/Training Program; Visit Provider Obstetrics & Gynecology | DX: Z12.4 Encounter for screening for malignant neoplasm of cervix (principal) | CPT/HCPCS: 88175; G0145 ==